=== PATIENT | female | born 1950 | race Caucasian/White ===

== ENCOUNTER 2019-08-22 13:01 | Inpatient (IN) | payer MEDICARE, SELFPAY ==
[2019-08-22] VITALS (8 sets, daily range): BP systolic 142–202; BP diastolic 63–92; PULSE 80–110; RESP 16–24; TEMP 36.8–38.1; O2SAT 90–96; BMI 54.6
--- NOTE | ~2019-08-22 | XR_ITS ---
EXAMINATION: XR foot RT 2V DATE: 08/23/2019 05:48 INDICATION: Right heel ulcer. TECHNIQUE: 2 views of right foot were obtained. COMPARISON: None. FINDINGS: Bone alignment is normal. No fracture. There is diffuse osteopenia. There is mild osteoarth ritis of some the interphalangeal joints and midfoot joints. There are enthesophytes at the posterior and plantar aspects of calcaneal tuberosity. IMPRESSION: 1. No evidence of osteomyelitis. Reviewed, dictated and finalized at location A. UGATOR OPERATOR
--- NOTE | ~2019-08-22 | XR_ITS ---
EXAMINATION: XR chest 2V DATE: 08/22/2019 16:18 INDICATION: Cough, fever, abdominal pain TECHNIQUE: AP and lateral views of the chest are obtained. COMPARISON: 01/22/2019 FINDINGS: There is stable cardiomegaly. A mild interstitial pattern is suggested. There is no pleural effusion or pneumothorax. There is levoscoliosis of the thoracic spine. Calcified atherosclerosis is noted. IMPRESSION: 1. Cardiomegaly with possible mild pulmonary edema. Reviewed, dictated and finalized at location A. ULAR TECH
--- NOTE | ~2019-08-22 | CT_ITS ---
EXAMINATION: CT abdomen pelvis wo con DATE: 08/22/2019 14:47 INDICATION: Abdominal distention and vomiting TECHNIQUE: Computed tomography (CT) of the abdomen and pelvis was performed without intravenous contr ast. The dose-length product (DLP) was 1442.83 mGy-cm. Automated exposure control and iterative recon struction technique were employed. COMPARISON: 10/12/2015 FINDINGS: Minimal dependent atelectasis is present in the lung bases. Cardiomegaly is noted. There is calcification of the mitral annulus. Punctate calcifications in an otherwise normal spleen likely re present healed granulomatous disease. The liver, pancreas, gallbladder, and adrenal glands are normal . The kidneys are unremarkable. There is calcified atherosclerosis of the aorta and many of the other arteries. There is mild retroperitoneal lymphadenopathy. There is no free intraperitoneal gas or ronald dence of bowel obstruction. A moderate volume of colonic stool is present. There is moderate lumbar s pondylosis. There is a large fat-containing umbilical hernia. There is skin thickening and infiltrati on of the fat of the pannus. Calcified uterine fibroids are noted. IMPRESSION: 1. Skin thickening and apparent inflammatory change of the pannus. Clinically correlate for signs of infection. Reviewed, dictated and finalized at location A. Y STITCHER IMPRESSION: 1. Skin thickening and apparent inflammatory change of the pannus. Clinically c orrelate for signs of infection.
--- NOTE | ~2019-08-22 | US_ITS ---
EXAMINATION: US venous doppler [facility] DATE: 08/23/2019 12:07 INDICATION: Bilateral lower limb swelling TECHNIQUE: Anderson scale images without and with compression and Doppler images of the bilateral lower e xtremity veins were obtained. COMPARISON: None. FINDINGS: The examination is limited by edema and the patient's body habitus. The right common femoral vein, profunda femoral vein, femoral vein, popliteal vein, posterior tibial veins, and greater saphenous vein are patent. The right peroneal vein is poorly visualized. Although no definitive thrombus is seen, flow appears somewhat diminished. The left common femoral vein, profunda femoral vein, femoral vein, popliteal vein, peroneal trunk, po sterior tibial veins, and greater saphenous vein are patent. IMPRESSION: 1. Diminished flow in the right peroneal vein without definite thrombus identified, otherwise patent bilateral lower extremity veins. Reviewed, dictated and finalized at location A. RVENTIONAL TECHNOLOGIST IMPRESSION: 1. Diminished flow in the right peroneal vein without definite thrombus identif ied, otherwise patent bilateral lower extremity veins.
[2019-08-22 13:28] LABS: Basophils Absolute Auto 0.1 K/mm3 (0.0-0.1); Basophils Percent Auto 0.4 % (0.2-1.2); Eosinophils Percent Auto 0.2 % (0-4.4); Hematocrit 35.5 % (37.0-47.0); Immature Granulocyte Absolute 0.25 K/mm3 (0.00-0.031); Immature Granulocyte Percent A 1.5 % (0-0.5); Lymphocytes Absolute Auto 0.96 K/mm3 (0.9-3.2); Lymphocytes Percent Auto 5.9 % (18.3-44.2); Mean Corpuscular Hemoglobin 27.8 pg (26-34); Mean Corpuscular Volume 89.6 fl (80-100); Mean Platelet Volume 10.1 fl (7.4-10.4); Monocytes Absolute Auto 0.8 K/mm3 (0.1-0.6); Monocytes Percent Auto 5.1 % (2.6-8.5); Neutrophils Absolute Auto 14.2 K/mm3 (1.3-6.7); Neutrophils Percent Auto 86.9 % (45.5-73.1); Platelet Count Result 249 k/mm3 (150-375); Red Blood Count 3.96 M/mm3 (4.2-5.4); Red Cell Distribution Width 13.5 % (11.5-14.5); White Blood Count 16.3 K/mm3 (4.5-10.0)
[2019-08-22 13:38] LABS: Alanine Aminotransferase 35 U/L (4-35); Albumin Level 3.7 g/dL (3.5-5.1); Alkaline Phosphatase 159 U/L (38-126); Aspartate Amino Transferase 34 U/L (14-36); Bilirubin,Total 0.9 mg/dL (0.2-1.3); Blood Urea Nitrogen 36 mg/dL (7-17); Calcium 8.8 mg/dL (8.4-10.2); Carbon Dioxide 22 mmol/L (22-30); Chloride 99 mmol/L (98-107); Estimated CRCL calculation 22 ml/min; Estimated Glomerular Filt Rate 17; Glucose 182 mg/dL (65-105); Lipase 63 U/L (23-300); Potassium 4.4 mmol/L (3.4-5.0); Sodium 138 mmol/L (137-145)
[2019-08-22 13:39] LABS: Lactic Acid Reflex 1.7 mmol/L (0.7-2.1)
--- NOTE | 2019-08-22 14:00 | ED.NAVMDI ---
HPI - Nausea/Vomiting/Diarrhea General Chief complaint: Nausea/Vomiting/Diarrhea Stated complaint: Nausea/Vomiting Time Seen by Provider: 08/22/19 13:38 Source: patient Mode of arrival: EMS Limitations: no limitations History of Present Illness HPI Narrative: Pt is a 69 y/o female who presents to the ED with c/o intermittent N/V for a week. Pt reports associated constipation and states that her last BM was about 2 weeks ago. She notes that she has been passing gas like normal but does not have the urge to have a BM. Pt took Miralax yesterday with no relief. She notes that she has no appetite but she denies any aggravating or alleviating factors. Pt has not been around anyone sick with the same Sx. Pt reports chills, but denies sweats or myalgia. She has an ulcer on her rt heel that she has had since January 2019 and she has home health care that checks it. Pt states that she thinks she bruised her ulcer because it is black/blue. She also has stasis dermatitis. Pt notes a chronic cough that is productive with phlegm. Her PCP is Dr. Trevino and they do not suspect osteomyelitis. MD elicited complaint: nausea and vomiting Onset (ago): week(s) (1) Pain consistency: intermittent Exacerbating factors: none Relieving factors: none Associated symptoms: fever/chills and other (constipation) Related Data Home Medications Medication Instructions Recorded Confirmed alprazolam 0.5 mg tablet 0.5 mg PO TID 05/09/19 08/22/19 aspirin 81 mg tablet,delayed 81 mg PO DAILY 05/09/19 08/22/19 release bumetanide 1 mg tablet 1 mg PO BID 05/09/19 08/22/19 diltiazem HCl 90 mg tablet 180 mg PO BID 05/09/19 08/22/19 metoprolol tartrate 100 mg tablet 100 mg PO BID 05/09/19 08/22/19 insulin lispro protamin-lispro 80 unit SUBCUT QAM 08/22/19 08/22/19 [Humalog Mix 75-25 KwikPen] insulin lispro protamin-lispro 90 unit SUBCUT QACDINNER 08/22/19 08/22/19 [Humalog Mix 75-25 KwikPen] Allergies Allergy/AdvReac Type Severity Reaction Status Date / Time clindamycin Allergy Unknown Unknown Verified 08/22/19 14:41 Penicillins Allergy Unknown Hives,Skin Verified 08/22/19 14:41 irritation Sulfa (Sulfonamide Allergy Unknown Hives,Skin Verified 08/22/19 14:41 Antibiotics) irritation Review of Systems Review of Systems: All systems reviewed & are unremarkable except as noted in HPI and below Constitutional: Constitutional: Denies body ache(s), Reports chills, Reports fever(s) and Denies other (sweats) Gastrointestinal: Gastrointestinal: Denies tenesmus, Reports constipation, Denies diarrhea, Reports nausea, Reports vomiting and Reports other (normal passing of gas) PMFSH Past Medical History Medical History Anemia Anxiety Arthritis CKD (chronic kidney disease) CVA (cerebral vascular accident) Diabetes mellitus HLD (hyperlipidemia) HTN (hypertension) Peripheral neuropathy Seasonal allergies Seizure Stasis dermatitis TIA (transient ischemic attack) Ulcer of right heel Umbilical hernia UTI (urinary tract infection) Surgical History Surgical History H/O tubal ligation Hx of hernia repair Family History Family History (Updated 08/22/19 @ 19:36 by Tati Soto RN) Father Family history of cardiovascular disease Acute myocardial infarction Mother Family history of Alzheimer's disease Hypertension Sibling Hypertension Sibling Hypertension Social History Social History Smoking status: Never smoker Alcohol intake: never Substance use: never Gender identity (if verbalized by the patient): Female Spiritual care concerns: No Agree to blood products: Yes Exam Narrative: Exam Narrative: GENERAL: Chronically ill-appearing, well-nourished, and in no acute distress. HEAD: Normocephalic, atraumatic. ENT: Mucous membranes moist. CHEST: Clear to auscultation. No respirator
[2019-08-22 15:26] LABS: Add Urine Microscopic? YES; Amorphous Sediment Urine Few; Appearance Urine Clear (Clear); Bacteria Urine Trace /hpf; Bilirubin Urine Negative (Negative); Blood Urine 1+ (Negative); Color Urine Yellow (Yellow); Glucose Urine UA 2+ mg/dL (Negative); Ketones Urine Negative (Negative); Leukocyte Esterase Ur Negative LEU/UL (Negative); Mucus Urine Rare /lpf; Nitrate Urine Negative (Negative); Protein Urine 3+ mg/dL (Negative); Specific Grav Ur 1.015 (1.001-1.035); Squamous Epithelial Cell Urine Occasional /hpf (Few); Urobilinogen Urine Negative mg/dL (<2.0)
[2019-08-22] MEDS: ONDANSETRON INJ 4 MG/2 ML VIAL IV PUSH (15:42)
[2019-08-22] MEDS: SODIUM CHLORIDE 0.9% IV 1,000 ML 999 ML IV CONT (15:43)
--- NOTE | 2019-08-22 18:42 | ADMGEN ---
This patient, Aurelia Alcantara, was admitted to 2 Medical Room 251-01. Patient/family oriented to hospital policies and general routines including ID bracelet, bed and alarms, visiting hours, pain management, procedures, bathroom and other care routines, personal items, smoking policy, room service/diet, and visiting hours. Valuables list has been completed. Information on how to activate the Rapid Response Team has been discussed. Patient/Family are encouraged to report perceived risks to care and to ask questions if they do not understand what they are told or what they should do. Report received from ARI Banuelos.
--- NOTE | 2019-08-22 19:07 | PC.NURSE ---
On 08/22/19, the License pending nurse, Destin Vazquez RN provided care and completed [employer] documentation on this patient. I have reviewed the documentation and agree with the findings.
[2019-08-22] MEDS: SODIUM CHLORIDE 0.9% IV 1,000 ML 125 ML IV CONT (19:13)
[2019-08-22 19:28] LABS: Glucose Point of Care 173 (65-105)
[2019-08-22 21:15] LABS: Glucose Point of Care 201 (65-105)
[2019-08-22] MEDS: IMIPENEM/CILASTATIN SODIUM 200 MG in DEXTROSE 5% 100 ML 300 ML IVPB (23:20)
--- NOTE | 2019-08-23 02:25 | PM.IMHP ---
H&P: HPI History of Present Illness Chief complaint: PANICULITIS Narrative: Aurelia Alcantara is a 69 year old female who came in with complaints of constipation and nausea vomiting without diarrhea. Patient stated it has been about a week since she had a bowel movement. She did take MiraLax yesterday but no relief. Her stomach is not bothering her at this time. She is complaining his lower back pain. Patient had elevated white count of 16.3. The patient has had a chronic right heel ulcer that has been maintained by Dr. Trevino her primary care doctor. She has had this chronic right heel ulcerated area since January of last year. She was getting home health until yesterday it stopped. She has chronic renal failure and anemia. Patient has of right lower pannus erythema and the patient has not tried anything at home for this. Since the patient has elevated white count of 16.3 is felt that the patient had secondary bacterial infection her pannus. Most likely due to yeast infection of the right pannus. The patient is diabetic. Per protocol the patient was started on vancomycin and Rocephin. Pharmacy is to dose vancomycin since she has chronic renal failure stage 4. Date of service is 08/23/2019 Review of Systems Review of Systems: All systems reviewed & are unremarkable except as noted in HPI and below Constitutional: Constitutional: Reports as per HPI and Reports no additional constitutional complaints Eyes: Eyes: Reports as per HPI and Reports no additional eye complaints ENT: Reports system reviewed and no additional complaints, except as documented and Reports Normal hearing present Cardiovascular: Cardiovascular: Reports no additional cardiovascular complaints Respiratory: Respiratory: Reports no additional respiratory complaints and Reports no additional respiratory complaints Gastrointestinal: Gastrointestinal: Reports as per HPI and Reports no additional gastrointestinal complaints Musculoskeletal: Musculoskeletal: Reports no additional musculoskeletal complaints Integumentary/Breasts: Skin/Breast: Reports system reviewed and no additional complaints, except as docu and Reports as per HPI Neurologic: Reports system reviewed and no additional complaints, except as documented, Reports as per HPI and Reports Normal hearing present Psychiatric: Psychiatric: Reports no additional psychiatric complaints and Reports as per HPI Endocrine: Endocrine: Reports no additional endocrine complaints Hematologic/Lymphatic: Hematologic/Lymphatic: Reports no additional hematologic/lymphatic complaints Allergic/Immunologic: Allergic/Immunologic: Reports no additional allergic/immunologic complaints [facility] Past Medical History Medical History (Updated 08/23/19 @ 02:30 by Juana Myers NP) Anemia Anxiety Arthritis CKD (chronic kidney disease) Stage IV CVA (cerebral vascular accident) Diabetes mellitus HLD (hyperlipidemia) HTN (hypertension) Peripheral neuropathy Seasonal allergies Seizure Stasis dermatitis TIA (transient ischemic attack) Ulcer of right heel Umbilical hernia UTI (urinary tract infection) Surgical History Surgical History (Updated 08/23/19 @ 02:30 by Juana Myers NP) H/O arthroscopy of right knee H/O tubal ligation Hx of hernia repair Family History Family History (Updated 08/22/19 @ 19:36 by Tati Soto RN) Father Family history of cardiovascular disease Acute myocardial infarction Mother Family history of Alzheimer's disease Hypertension Sibling Hypertension Sibling Hypertension Daughter Breast cancer Social History Social History Smoking status: Never smoker Alcohol intake: never Substance use: never Gender identity (if verbalized by the patient): Female Spiritual care concerns: No Agree to blood products: Yes Meds Home Medications and Allergies Home Medications Medication Instructions Recorded Co
[2019-08-23 03:14] VITALS: BP 176/76; PULSE 95; RESP 22; TEMP 36.7; O2SAT 98
[2019-08-23] MEDS: ALPRAZOLAM 0.5 MG TABLET PO ×3 (05:04→16:39)
[2019-08-23 05:37] LABS: Basophils Percent Auto 0.3 % (0.2-1.2); Eosinophils Percent Auto 0.3 % (0-4.4); Hematocrit 29.1 % (37.0-47.0); Hemoglobin 9.1 g/dL (12.0-15.0); Immature Granulocyte Absolute 0.29 K/mm3 (0.00-0.031); Immature Granulocyte Percent A 2.1 % (0-0.5); Lymphocytes Percent Auto 10.2 % (18.3-44.2); Mean Corpuscular HGB Conc 31.3 g/dl (32-36); Mean Corpuscular Hemoglobin 28.4 pg (26-34); Mean Corpuscular Volume 90.9 fl (80-100); Mean Platelet Volume 10.1 fl (7.4-10.4); Monocytes Absolute Auto 0.9 K/mm3 (0.1-0.6); Monocytes Percent Auto 6.2 % (2.6-8.5); Neutrophils Absolute Auto 11.2 K/mm3 (1.3-6.7); Neutrophils Percent Auto 80.9 % (45.5-73.1); Platelet Count Result 222 k/mm3 (150-375); Red Cell Distribution Width 13.3 % (11.5-14.5); White Blood Count 13.8 K/mm3 (4.5-10.0)
[2019-08-23 05:47] LABS: Alanine Aminotransferase 31 U/L (4-35); Alkaline Phosphatase 106 U/L (38-126); Aspartate Amino Transferase 28 U/L (14-36); Bilirubin,Total 0.7 mg/dL (0.2-1.3); Blood Urea Nitrogen 33 mg/dL (7-17); Calcium 8.4 mg/dL (8.4-10.2); Carbon Dioxide 25 mmol/L (22-30); Chloride 104 mmol/L (98-107); Estimated CRCL calculation 25 ml/min; Estimated Glomerular Filt Rate 19; Glucose 158 mg/dL (65-105); Magnesium 1.8 mg/dL (1.6-2.3); Potassium 4.2 mmol/L (3.4-5.0); Sodium 138 mmol/L (137-145)
[2019-08-23 06:00] VITALS: BP 168/72; PULSE 84; RESP 22; O2SAT 91
[2019-08-23] MEDS: IMIPENEM/CILASTATIN SODIUM 200 MG in DEXTROSE 5% 100 ML IVPB ×2 (06:10→12:15)
[2019-08-23 07:40] LABS: Glucose Point of Care 139 (65-105)
[2019-08-23 08:00] VITALS: PULSE 84; RESP 22; O2SAT 91
[2019-08-23] MEDS: ASPIRIN 81 MG ENTERIC TABLET PO (08:11)
[2019-08-23] MEDS: METOPROLOL TARTRATE 50 MG TAB 100 MG PO ×2 (08:12→16:39)
[2019-08-23] MEDS: SIMVASTATIN 20 MG TABLET 40 MG PO (08:12)
[2019-08-23] MEDS: BUMETANIDE 1 MG TABLET PO ×2 (08:12→16:39)
[2019-08-23] MEDS: TOLNAFTATE 1% POWDER 45 GM BTL 1 APPLIC TOPICAL ×2 (08:13→21:03)
[2019-08-23] MEDS: SODIUM CHLORIDE 0.9% IV 1,000 ML 125 ML IV CONT (08:16)
--- NOTE | 2019-08-23 09:54 | P.PNIM_ITS ---
Progress Note: A&P Assessment and Plan (1) Abdominal pannus: Code(s): E65 - Localized adiposity Status: Acute Assessment and Plan: Inflammatory changes of pannus on CT. This could very well be fungal. * Anti-fungal powder for now * Wound Care consult; appreciate recommendations * Vanc and imipenem for diabetic wound, as well, which would add coverage if bacterial * Monitor (2) Heel ulcer: Qualifiers: Laterality: right Non-pressure ulcer stage: limited to breakdown of skin Qualified Code(s): L97.411 - Non-pressure chronic ulcer of right heel and midfoot limited to breakdown of skin Code(s): L97.409 - Non-pressure chronic ulcer of unspecified heel and midfoot with unspecified severity Status: Acute Assessment and Plan: Black eschar noted on heel, minimally infected, but in setting of elevated WCC. Vanc and imipenem started from ER. No osteomyelitis on xray * Continue with vanc and imipenem for now * Wound Care has been consulted and appreciate recommendations * Consider Surgery consult pending WC recommendations * Likely Home with HH for wound care on discharge as her last day was yesterday * Monitor/trend WCC * PO antibiotics at discharge * Pain control (3) Anxiety: Code(s): F41.9 - Anxiety disorder, unspecified Status: Chronic Assessment and Plan: No acute issues * Continue with home Xanax (4) Diabetes mellitus: Code(s): E11.9 - Type 2 diabetes mellitus without complications Status: Chronic Assessment and Plan: IDDM. BGL 100s today * Home insulin regimen * Diabetic diet * accucheks ACHS, hypoglycemia protocol, correctional insulin (5) HLD (hyperlipidemia): Code(s): E78.5 - Hyperlipidemia, unspecified Status: Chronic Assessment and Plan: No acute issues * Continue with simvastatin (6) HTN (hypertension): Code(s): I10 - Essential (primary) hypertension Status: Chronic Assessment and Plan: BGL 160s today, but has not had home diltiazem today * Continue with metoprolol and diltiazem. (7) CKD (chronic kidney disease): Code(s): N18.9 - Chronic kidney disease, unspecified Status: Chronic Assessment and Plan: Stage IV. Cr 2.50; At baseline * Continue to monitor (8) Anemia: Code(s): D64.9 - Anemia, unspecified Status: Chronic Assessment and Plan: Hgb 9.1; down from yesterday, but possibly dilutional; no signs of active bleeding at this moment. * Iron panel tomorrow * Trend Hgb * Stool occult if still dropping tomorrow * Transfuse as needed Subjective Date/time seen: 08/23/19 09:54 Interval history: Patient is a 69 yo F with history of DMII, HLD, HTN, stasis dermatitis, chronic diabetic wound of right heel treated by PCP, and CKD among other comorbidities who is here for treatment of suspected fungal infection of pannus, treatment of diabetic foot wound of right heel, and constipation. Patient tells me she feels better today. Her pain in her foot is improved, but still present. She is still constipated, but passing gas. She has no other complaints today. No complaints of abdominal pain/itchiness/irritation/skin changes. Denies f/c/ns, headaches, dizziness, lightheadedness, changes in v/
--- NOTE | 2019-08-23 09:54 | PM.IMPN ---
Progress Note: A&P Assessment and Plan (1) Abdominal pannus: Code(s): E65 - Localized adiposity Status: Acute Assessment and Plan: Inflammatory changes of pannus on CT. This could very well be fungal. Anti-fungal powder for now Wound Care consult; appreciate recommendations Vanc and imipenem for diabetic wound, as well, which would add coverage if bacterial Monitor (2) Heel ulcer: Qualifiers: Laterality: right Non-pressure ulcer stage: limited to breakdown of skin Qualified Code(s): L97.411 - Non-pressure chronic ulcer of right heel and midfoot limited to breakdown of skin Code(s): L97.409 - Non-pressure chronic ulcer of unspecified heel and midfoot with unspecified severity Status: Acute Assessment and Plan: Black eschar noted on heel, minimally infected, but in setting of elevated WCC. Vanc and imipenem started from ER. No osteomyelitis on xray Continue with vanc and imipenem for now Wound Care has been consulted and appreciate recommendations Consider Surgery consult pending WC recommendations Likely Home with HH for wound care on discharge as her last day was yesterday Monitor/trend WCC PO antibiotics at discharge Pain control (3) Anxiety: Code(s): F41.9 - Anxiety disorder, unspecified Status: Chronic Assessment and Plan: No acute issues Continue with home Xanax (4) Diabetes mellitus: Code(s): E11.9 - Type 2 diabetes mellitus without complications Status: Chronic Assessment and Plan: IDDM. BGL 100s today Home insulin regimen Diabetic diet accucheks ACHS, hypoglycemia protocol, correctional insulin (5) HLD (hyperlipidemia): Code(s): E78.5 - Hyperlipidemia, unspecified Status: Chronic Assessment and Plan: No acute issues Continue with simvastatin (6) HTN (hypertension): Code(s): I10 - Essential (primary) hypertension Status: Chronic Assessment and Plan: BGL 160s today, but has not had home diltiazem today Continue with metoprolol and diltiazem. (7) CKD (chronic kidney disease): Code(s): N18.9 - Chronic kidney disease, unspecified Status: Chronic Assessment and Plan: Stage IV. Cr 2.50; At baseline Continue to monitor (8) Anemia: Code(s): D64.9 - Anemia, unspecified Status: Chronic Assessment and Plan: Hgb 9.1; down from yesterday, but possibly dilutional; no signs of active bleeding at this moment. Iron panel tomorrow Trend Hgb Stool occult if still dropping tomorrow Transfuse as needed Subjective Date/time seen: 08/23/19 09:54 Interval history: Patient is a 69 yo F with history of DMII, HLD, HTN, stasis dermatitis, chronic diabetic wound of right heel treated by PCP, and CKD among other comorbidities who is here for treatment of suspected fungal infection of pannus, treatment of diabetic foot wound of right heel, and constipation. Patient tells me she feels better today. Her pain in her foot is improved, but still present. She is still constipated, but passing gas. She has no other complaints today. No complaints of abdominal pain/itchiness/irritation/skin changes. Denies f/c/ns, headaches, dizziness, lightheadedness, changes in v/h, cp/palpitations, sob/cough, n/v, abd pain, dysphagia, melena, brbpr, dysuria, hematuria, cloudy urine, calf pain/swelling, s/sx of stroke Review of Systems Review of Systems: All systems reviewed & are unremarkable except as noted in HPI and below Exam Narrative: Exam Narrative: Patient sitting upright in chair at time of visit. Son is in room visiting Const: General: cooperative, comfortabl
[2019-08-23] MEDS: DILTIAZEM HCL 60 MG TABLET 180 MG PO ×2 (12:14→21:03)
[2019-08-23 12:23] LABS: Glucose Point of Care 65 (65-105)
[2019-08-23 14:00] VITALS: BP 120/56; PULSE 68; RESP 22; TEMP 36.8; O2SAT 97
[2019-08-23 16:43] LABS: Glucose Point of Care 111 (65-105)
[2019-08-23] MEDS: ACETAMINOPHEN 325 MG TABLET 650 MG PO (16:43)
[2019-08-23 16:49] VITALS: PULSE 79; RESP 18; O2SAT 95
[2019-08-23 21:50] VITALS: BP 136/54; PULSE 61; RESP 18; TEMP 36.2; O2SAT 98
[2019-08-24] VITALS (7 sets, daily range): BP systolic 139–158; BP diastolic 47–81; PULSE 63–82; RESP 18–20; TEMP 36.2–36.7; O2SAT 95–98
[2019-08-24 01:46] LABS: Glucose Point of Care 94 (65-105)
[2019-08-24 04:51] LABS: Basophils Absolute Auto 0.1 K/mm3 (0.0-0.1); Basophils Percent Auto 0.4 % (0.2-1.2); Eosinophils Absolute Auto 0.3 K/mm3 (0-0.3); Eosinophils Percent Auto 2.4 % (0-4.4); Hematocrit 27.8 % (37.0-47.0); Hemoglobin 8.4 g/dL (12.0-15.0); Immature Granulocyte Absolute 0.15 K/mm3 (0.00-0.031); Immature Granulocyte Percent A 1.3 % (0-0.5); Lymphocytes Percent Auto 15.2 % (18.3-44.2); Mean Corpuscular HGB Conc 30.2 g/dl (32-36); Mean Corpuscular Hemoglobin 28.2 pg (26-34); Mean Corpuscular Volume 93.3 fl (80-100); Mean Platelet Volume 9.5 fl (7.4-10.4); Monocytes Percent Auto 9.1 % (2.6-8.5); Neutrophils Percent Auto 71.6 % (45.5-73.1); Platelet Count Result 206 k/mm3 (150-375); Red Blood Count 2.98 M/mm3 (4.2-5.4); Red Cell Distribution Width 13.6 % (11.5-14.5); White Blood Count 11.2 K/mm3 (4.5-10.0)
[2019-08-24 05:06] LABS: Blood Urea Nitrogen 38 mg/dL (7-17); Calcium 7.8 mg/dL (8.4-10.2); Carbon Dioxide 25 mmol/L (22-30); Chloride 105 mmol/L (98-107); Estimated CRCL calculation 23 ml/min; Estimated Glomerular Filt Rate 17; Glucose 83 mg/dL (65-105); Magnesium 1.8 mg/dL (1.6-2.3); Potassium 4.7 mmol/L (3.4-5.0); Sodium 140 mmol/L (137-145)
[2019-08-24 05:13] LABS: Transferrin 126 mg/dL (206-381)
[2019-08-24] MEDS: ACETAMINOPHEN 325 MG TABLET 650 MG PO ×2 (05:38→19:52)
[2019-08-24 05:39] LABS: Iron 32 ug/dL (37-170)
[2019-08-24 05:49] LABS: Percent Iron Saturation 16 % (20-50)
[2019-08-24 07:34] LABS: Glucose Point of Care 81 (65-105)
[2019-08-24] MEDS: ASPIRIN 81 MG ENTERIC TABLET PO (08:35)
[2019-08-24] MEDS: COLLAGENASE OINT 30 GM TUBE 1 APPLIC TOPICAL (08:35)
[2019-08-24] MEDS: TOLNAFTATE 1% POWDER 45 GM BTL 1 APPLIC TOPICAL ×2 (08:35→19:52)
[2019-08-24] MEDS: METOPROLOL TARTRATE 50 MG TAB 100 MG PO ×2 (08:35→17:49)
[2019-08-24] MEDS: ALPRAZOLAM 0.5 MG TABLET PO ×3 (08:35→17:49)
[2019-08-24] MEDS: BISACODYL 5 MG TABLET EC PO (08:35)
[2019-08-24] MEDS: BUMETANIDE 1 MG TABLET PO ×2 (08:35→17:49)
[2019-08-24] MEDS: SIMVASTATIN 20 MG TABLET 40 MG PO (08:37)
[2019-08-24] MEDS: DILTIAZEM HCL 60 MG TABLET 180 MG PO ×2 (08:37→19:51)
--- NOTE | 2019-08-24 09:58 | PM.IMPN ---
Progress Note: A&P Assessment and Plan (1) Abdominal pannus: Code(s): E65 - Localized adiposity Status: Acute Assessment and Plan: Inflammatory changes of pannus on CT. This could very well be fungal. WCC has decreased. No evidence of active bacterial infection at this moment on the pannus. Anti-fungal powder; WC instructions Wound Care consulted and appreciate recommendations Vanc and imipenem d/c yesterday due to unlikely active skin infection Monitor (2) Heel ulcer: Qualifiers: Laterality: right Non-pressure ulcer stage: limited to breakdown of skin Qualified Code(s): L97.411 - Non-pressure chronic ulcer of right heel and midfoot limited to breakdown of skin Code(s): L97.409 - Non-pressure chronic ulcer of unspecified heel and midfoot with unspecified severity Status: Acute Assessment and Plan: Black eschar noted on heel yesterday. WC saw patient yesterday and saw no evidence of infection; rec d/c Vanc and imipenem; rec follow up with PCP and possible HH. WCC has decreased today to 11.2. No osteomyelitis on xray. Pain controlled with Tylenol today. Vanc and imipenem d/c yesterday Wound Care consulted and appreciate recommendations Likely Home with HH for wound care on discharge or follow up with PCP for further referral to WC Monitor/trend WCC Pain control (3) Acute respiratory failure with hypoxia: Code(s): J96.01 - Acute respiratory failure with hypoxia Status: Acute Assessment and Plan: Patient slowly being weaned off O2, still requiring 1L O2 NC this morning; slightly increased effort in breathing during my visit, but this may be positional as she was lying more supine then upright. Also, possible small component of pulmonary edema which was noted on CXR earlier in stay. No crackles noted on exam today. Nursing reports patient is satting better while sitting upright and breathing easier after our visit. Patient already on home Bumex; continue. Considering one time dose of Lasix if unable to completely wean off O2 today, although will be cautious in setting of CKD Wean O2 as tolerated Humidify O2 (4) Anxiety: Code(s): F41.9 - Anxiety disorder, unspecified Status: Chronic Assessment and Plan: No acute issues Continue with home Xanax (5) Diabetes mellitus: Code(s): E11.9 - Type 2 diabetes mellitus without complications Status: Chronic Assessment and Plan: IDDM. BGL 80s this morning. Patient tells me she gets hypoglycemic while at home Home insulin regimen has been held since yesterday morning with reasonable control in BGL Diabetic diet accucheks ACHS, hypoglycemia protocol, correctional insulin Will likely recommend halving her home insulin regimen due to lowered BGL during her stay She will need prompt PCP follow up to further discuss her insulin regimen (6) HLD (hyperlipidemia): Code(s): E78.5 - Hyperlipidemia, unspecified Status: Chronic Assessment and Plan: No acute issues Continue with simvastatin (7) HTN (hypertension): Code(s): I10 - Essential (primary) hypertension Status: Chronic Assessment and Plan: BGL 150s today Continue with metoprolol and diltiazem. (8) CKD (chronic kidney disease): Code(s): N18.9 - Chronic kidney disease, unspecified Status: Chronic Assessment and Plan: Stage IV. Cr 2.70; At baseline Continue to monitor Monitor closely if giving additional lasix (9) Anemia: Code(s): D64.9 - Anemia, unspecified Status: Chronic Assessment and Plan: Hgb 8.4; down from yesterday, but possibly dilutional; no s
[2019-08-24 11:33] LABS: Hematocrit 30.5 % (37.0-47.0); Hemoglobin 9.2 g/dL (12.0-15.0)
[2019-08-24] MEDS: FUROSEMIDE INJ 100 MG/10 ML VIAL 60 MG IV PUSH (11:50)
[2019-08-24] MEDS: BISACODYL 10 MG SUPPOSITORY RECTAL (11:50)
[2019-08-24 13:23] LABS: Glucose Point of Care 120 (65-105)
[2019-08-24 13:46] LABS: IFOB Positive Control Positive; Immunochemical Fecal Occult Bl Negative (N)
[2019-08-24 18:06] LABS: Glucose Point of Care 130 (65-105)
[2019-08-24 23:10] LABS: Glucose Point of Care 161 (65-105)
[2019-08-25] VITALS (11 sets, daily range): BP systolic 159–176; BP diastolic 55–63; PULSE 64–93; RESP 18–20; TEMP 36.2–36.9; O2SAT 91–95
[2019-08-25] MEDS: ACETAMINOPHEN 325 MG TABLET 650 MG PO (04:29)
[2019-08-25 06:14] LABS: Basophils Absolute Auto 0.1 K/mm3 (0.0-0.1); Basophils Percent Auto 0.7 % (0.2-1.2); Eosinophils Absolute Auto 0.3 K/mm3 (0-0.3); Eosinophils Percent Auto 2.8 % (0-4.4); Hematocrit 30.4 % (37.0-47.0); Immature Granulocyte Absolute 0.38 K/mm3 (0.00-0.031); Immature Granulocyte Percent A 3.4 % (0-0.5); Lymphocytes Absolute Auto 1.63 K/mm3 (0.9-3.2); Lymphocytes Percent Auto 14.6 % (18.3-44.2); Mean Corpuscular HGB Conc 29.6 g/dl (32-36); Mean Corpuscular Hemoglobin 27.6 pg (26-34); Mean Corpuscular Volume 93.3 fl (80-100); Mean Platelet Volume 10.2 fl (7.4-10.4); Monocytes Absolute Auto 0.9 K/mm3 (0.1-0.6); Monocytes Percent Auto 7.8 % (2.6-8.5); Neutrophils Absolute Auto 7.9 K/mm3 (1.3-6.7); Neutrophils Percent Auto 70.7 % (45.5-73.1); Platelet Count Result 259 k/mm3 (150-375); Red Blood Count 3.26 M/mm3 (4.2-5.4); Red Cell Distribution Width 13.6 % (11.5-14.5); White Blood Count 11.2 K/mm3 (4.5-10.0)
[2019-08-25 06:25] LABS: Blood Urea Nitrogen 40 mg/dL (7-17); Calcium 8.2 mg/dL (8.4-10.2); Carbon Dioxide 26 mmol/L (22-30); Chloride 108 mmol/L (98-107); Estimated CRCL calculation 22 ml/min; Estimated Glomerular Filt Rate 16; Glucose 118 mg/dL (65-105); Sodium 141 mmol/L (137-145)
[2019-08-25 07:29] LABS: Glucose Point of Care 111 (65-105)
[2019-08-25 07:31] LABS: Hypochromasia 1+ (NORMAL); Ovalocytes 1+ (NORMAL); Platelet Estimate Adequate (Adequate)
[2019-08-25] MEDS: ALPRAZOLAM 0.5 MG TABLET PO ×3 (08:11→17:39)
[2019-08-25] MEDS: DILTIAZEM HCL 60 MG TABLET 180 MG PO ×2 (08:11→20:28)
[2019-08-25] MEDS: ASPIRIN 81 MG ENTERIC TABLET PO (08:11)
[2019-08-25] MEDS: SIMVASTATIN 20 MG TABLET 40 MG PO (08:11)
[2019-08-25] MEDS: BUMETANIDE 1 MG TABLET PO ×2 (08:11→17:39)
[2019-08-25] MEDS: METOPROLOL TARTRATE 50 MG TAB 100 MG PO ×2 (08:11→17:39)
[2019-08-25] MEDS: FERROUS SULFATE 324 MG TABLET PO (08:11)
[2019-08-25] MEDS: COLLAGENASE OINT 30 GM TUBE 1 APPLIC TOPICAL (08:12)
[2019-08-25] MEDS: TOLNAFTATE 1% POWDER 45 GM BTL 1 APPLIC TOPICAL ×2 (08:12→20:28)
--- NOTE | 2019-08-25 09:10 | PM.IMPN ---
Progress Note: A&P Assessment and Plan (1) Abdominal pannus: Code(s): E65 - Localized adiposity Status: Acute Assessment and Plan: Inflammatory changes of pannus on CT. This could very well be fungal. WCC has stabilized at 11.2k. No evidence of active bacterial infection at this moment on the pannus. Anti-fungal powder; WC instructions Wound Care consulted and appreciate recommendations No antibiotics as unlikely active bacterial skin infection Monitor (2) Heel ulcer: Qualifiers: Laterality: right Non-pressure ulcer stage: limited to breakdown of skin Qualified Code(s): L97.411 - Non-pressure chronic ulcer of right heel and midfoot limited to breakdown of skin Code(s): L97.409 - Non-pressure chronic ulcer of unspecified heel and midfoot with unspecified severity Status: Acute Assessment and Plan: Black eschar noted on heel earlier in stay. WC saw patient earlier in stay and saw no evidence of infection; rec d/c Vanc and imipenem; rec follow up with PCP and possible HH. WCC has stabilized today at 11.2k. No evidence of osteomyelitis on xray. Pain controlled with Tylenol today. No antibiotics at this moment Wound Care consulted and appreciate recommendations Likely Home with HH for wound care on discharge or follow up with PCP for further referral to WC Monitor/trend [facility] Pain control (3) Acute respiratory failure with hypoxia: Code(s): J96.01 - Acute respiratory failure with hypoxia Status: Acute Assessment and Plan: Patient slowly being weaned off O2, still requiring 1L O2 NC this morning; slightly increased effort in breathing during my visit. Also, possible small component of pulmonary edema which was noted on CXR earlier in stay. Wheezing noted on exam today. Nursing reports patient is satting better while sitting upright and breathing easier after our visit. Patient had one time dose of Lasix on top of Bumex; patient tells me she had increased in urine production Wean O2 as tolerated Schedule nebs for slight wheezing noted on exam. Patient has no chronic underlying lung condition Humidify O2 Likely home tomorrow if weaned off O2 (4) Anxiety: Code(s): F41.9 - Anxiety disorder, unspecified Status: Chronic Assessment and Plan: No acute issues Continue with home Xanax (5) Diabetes mellitus: Code(s): E11.9 - Type 2 diabetes mellitus without complications Status: Chronic Assessment and Plan: IDDM. BGL 100s this morning. Patient tells me she gets hypoglycemic while at home Home insulin regimen has been held for majority of stay with reasonable control in BGL Diabetic diet accucheks ACHS, hypoglycemia protocol, correctional insulin Will likely continue home regimen at discharge with prompt follow up with her PCP. Reluctant to change her insulin regimen at this time as it is unclear how strict she is with her Diabetic Diet while at home and may run the risk of hypoglycemic events at home. She tells me she is comfortable with continuing her current regimen and checking her sugars frequently at home, as she already does this at home. She understands the importance of following up with her PCP for possible adjustments with her insulin regimen. (6) HLD (hyperlipidemia): Code(s): E78.5 - Hyperlipidemia, unspecified Status: Chronic Assessment and Plan: No acute issues Continue with simvastatin (7) HTN (hypertension): Code(s): I10 - Essential (primary) hypertension Status: Chronic Assessment and Plan: BGL 150s today Continue with metoprolol and diltiazem. (8) CKD (chronic kidney disease): Code(s): N18.9 - Chron
[2019-08-25 12:12] LABS: Glucose Point of Care 134 (65-105)
[2019-08-25 13:38] LABS: Blood Urea Nitrogen 41 mg/dL (7-17); Calcium 7.5 mg/dL (8.4-10.2); Carbon Dioxide 25 mmol/L (22-30); Chloride 102 mmol/L (98-107); Estimated CRCL calculation 24 ml/min; Estimated Glomerular Filt Rate 18; Glucose 159 mg/dL (65-105); Potassium 4.1 mmol/L (3.4-5.0); Sodium 140 mmol/L (137-145)
[2019-08-25] MEDS: IPRATROPIUM BR 0.02% INH SOLN 0.5 MG/2.5 ML VIAL INHALATION ×2 (14:10→21:40)
[2019-08-25] MEDS: ALBUTEROL SULFATE NEB 2.5 MG/0.5 ML INH INHALATION ×2 (14:10→21:39)
[2019-08-25 18:15] LABS: Glucose Point of Care 156 (65-105)
[2019-08-25 22:19] LABS: Glucose Point of Care 182 (65-105)
[2019-08-26] VITALS (13 sets, daily range): BP systolic 154–165; BP diastolic 50–61; PULSE 66–80; RESP 16–20; TEMP 36.3–37.1; O2SAT 79–97
[2019-08-26] MEDS: ALBUTEROL SULFATE NEB 2.5 MG/0.5 ML INH INHALATION ×2 (02:54→08:33)
[2019-08-26] MEDS: IPRATROPIUM BR 0.02% INH SOLN 0.5 MG/2.5 ML VIAL INHALATION ×2 (02:54→08:34)
[2019-08-26 05:42] LABS: Hematocrit 29.5 % (37.0-47.0); Mean Corpuscular HGB Conc 30.5 g/dl (32-36); Mean Corpuscular Hemoglobin 28.3 pg (26-34); Mean Corpuscular Volume 92.8 fl (80-100); Mean Platelet Volume 9.4 fl (7.4-10.4); Platelet Count Result 269 k/mm3 (150-375); Red Blood Count 3.18 M/mm3 (4.2-5.4); Red Cell Distribution Width 13.6 % (11.5-14.5); White Blood Count 10.5 K/mm3 (4.5-10.0)
[2019-08-26 05:56] LABS: Blood Urea Nitrogen 41 mg/dL (7-17); Calcium 8.3 mg/dL (8.4-10.2); Carbon Dioxide 28 mmol/L (22-30); Chloride 107 mmol/L (98-107); Estimated CRCL calculation 24 ml/min; Estimated Glomerular Filt Rate 18; Glucose 131 mg/dL (65-105); Hemoglobin A1C 6.1 % (<5.7); Potassium 3.9 mmol/L (3.4-5.0); Sodium 142 mmol/L (137-145)
[2019-08-26 07:48] LABS: Glucose Point of Care 127 (65-105)
[2019-08-26] MEDS: ASPIRIN 81 MG ENTERIC TABLET PO (08:40)
[2019-08-26] MEDS: SIMVASTATIN 20 MG TABLET 40 MG PO (08:40)
[2019-08-26] MEDS: METOPROLOL TARTRATE 50 MG TAB 100 MG PO (08:41)
[2019-08-26] MEDS: BUMETANIDE 1 MG TABLET PO (08:43)
[2019-08-26] MEDS: FERROUS SULFATE 324 MG TABLET PO (08:43)
[2019-08-26] MEDS: DILTIAZEM HCL 60 MG TABLET 180 MG PO (08:43)
[2019-08-26] MEDS: COLLAGENASE OINT 30 GM TUBE 1 APPLIC TOPICAL (08:44)
[2019-08-26] MEDS: TOLNAFTATE 1% POWDER 45 GM BTL 1 APPLIC TOPICAL (08:44)
[2019-08-26] MEDS: ALPRAZOLAM 0.5 MG TABLET PO ×2 (08:48→12:00)
--- NOTE | 2019-08-26 10:48 | PM.DS ---
DS: Diagnosis Admitting Diagnosis Admitting Diagnosis: Right heel ulcer, possible panniculitis, unspecified Discharge Diagnosis (1) Abdominal pannus: Code(s): E65 - Localized adiposity Status: Acute Assessment and Plan: Inflammatory changes of pannus noted on CT. This could very well be fungal. WCC has stabilized at 10.5k today. No evidence of active bacterial infection at this moment on the pannus. Anti-fungal powder; WC instructions Wound Care consulted and appreciate recommendations No antibiotics as unlikely active bacterial skin infection Continue with antifungal under skin folds Follow up with PCP (2) Heel ulcer: Qualifiers: Laterality: right Non-pressure ulcer stage: limited to breakdown of skin Qualified Code(s): L97.411 - Non-pressure chronic ulcer of right heel and midfoot limited to breakdown of skin Code(s): L97.409 - Non-pressure chronic ulcer of unspecified heel and midfoot with unspecified severity Status: Acute Assessment and Plan: Black eschar noted on heel earlier in stay. WC saw patient earlier in stay and saw no evidence of infection; rec d/c Vanc and imipenem; rec follow up with PCP and resume HH. WCC has stabilized today at 10.5k. No evidence of osteomyelitis on xray. Pain controlled with Tylenol No antibiotics at this moment Wound Care consulted and appreciate recommendations Likely Home with HH for wound care on discharge or follow up with PCP for further referral to WC Repeat CBC in 1 week Pain control with Tylenol PCP follow up (3) Acute respiratory failure with hypoxia: Code(s): J96.01 - Acute respiratory failure with hypoxia Status: Acute Assessment and Plan: Patient slowly being weaned off O2 today, although possibly requiring O2 once ambulating. Home O2 eval today to assess; they recommend 2 L O2 at rest and on ambulation. Also, possible small component of pulmonary edema which was noted on CXR earlier in stay. Lung exam benign today. Possibly due to OSH Home O2 recommends 2L O2 at rest and ambulation. Recommended follow up with f/u with PCP for possible PFTs or further work up, possibly OP Echo (4) Anxiety: Code(s): F41.9 - Anxiety disorder, unspecified Status: Chronic Assessment and Plan: No acute issues Continue with home Xanax (5) Diabetes mellitus: Code(s): E11.9 - Type 2 diabetes mellitus without complications Status: Chronic Assessment and Plan: IDDM. BGL 100s this morning. Patient tells me she gets hypoglycemic while at home occasionally Home insulin regimen has been held for majority of stay with reasonable control in BGL Diabetic diet accucheks ACHS, hypoglycemia protocol, correctional insulin during stay Will likely continue home regimen at discharge with prompt follow up with her PCP. I am reluctant to change her insulin regimen at this time as it is unclear how strict she is with her Diabetic Diet while at home and may run the risk of hyperglycemic events at home if insulin is reduced. She tells me she is comfortable with continuing her current regimen and checking her sugars frequently at home, as she already does this at home; she understands when to take her insulin and when to hold it. She understands the importance of following up with her PCP for possible adjustments with her insulin regimen. (6) HLD (hyperlipidemia): Code(s): E78.5 - Hyperlipidemia, unspecified Status: Chronic Assessment and Plan: No acute issues Continue with simvastatin (7) HTN (hypertension): Code(s): I10 - Essential (primary) hypertension Status: Chronic Assessment and Plan: BGL 160s today Continue with metoprolol and dilti
[2019-08-26 12:00] LABS: Glucose Point of Care 162 (65-105)
--- NOTE | 2019-08-26 13:54 | HOMEO2EVAL ---
Home Oxygen Evaluation RC: Home Oxygen (O2) Evaluation Start: 08/26/19 07:14 Freq: ONCE Status: Active Protocol: RPE Activity Type Activity Date Activity User E-Sign Co-Sign Detail Recorded Client Recorded Date Recorded By Document 08/26/19 13:25 [email or web address] [id number] 08/26/19 13:54 KRM Document 08/26/19 13:27 [email or web address] [email or web address] 08/26/19 13:54 KRM Document 08/26/19 13:30 [email or web address] [email or web address] 08/26/19 13:54 KRM Document 08/26/19 13:32 [email or web address] [email or web address] 08/26/19 13:54 KRM Document 08/26/19 13:35 [email or web address] [email or web address] 08/26/19 13:54 KRM 08/26/19 08/26/19 08/26/19 13:25 13:27 13:30 Home O2 Evaluation Test Phase Resting Resting Resting Oxygen Delivery Room Air Nasal Cannula Nasal Cannula Oxygen Flow Rate (L/min) 1 2 Pulse Oximetry (90-100 %) 79 L 87 L 90 Pulse Rate (60-100 beats/min) 67 67 66 Activity Tolerance Ambulation Distance (feet) Home Oxygen Evaluation Comments Treatment Charges O2 Evaluation 08/26/19 08/26/19 13:32 13:35 Home O2 Evaluation Test Phase Exercise Resting Oxygen Delivery Nasal Cannula Nasal Cannula Oxygen Flow Rate (L/min) 2 2 Pulse Oximetry (90-100 %) 89 L 90 Pulse Rate (60-100 beats/min) 76 72 Activity Tolerance Fair Ambulation Distance (feet) 25 Home Oxygen Evaluation Comments TO BATHROOM AND BACK. NEEDS 2LPM AT REST AND WITH ACTIVITY. Treatment Charges
--- NOTE | 2019-08-26 14:36 | PCNSR ---
On 08/26/19, the student, Lima Montoya, provided care and completed [facility] documentation on this patient. I have reviewed the student's documentation and agree with the findings.
--- NOTE | 2019-08-26 14:54 | PCRCNOTE ---
PT. REQUIRES 2LPM HOME O2. DID NOT HAVE QUALIFYING DX. PT. AGREED TO SELF PAY. SET UP WITH [facility]. GAVE E TANK FROM [facility].
== END 2019-08-26 16:27 | disposition home health service (06) | DRG 640 ==
LOC: ANHED 13:53 → ANH2MED 17:59
PROVIDERS: Nurse Practitioner; Physician Assistant; Admitting Provider Family Medicine; Emergency Provider Emergency Medicine; PCP Family Medicine; Visit Provider Hospitalist
DX: E65 Localized adiposity (principal); J96.01 Acute respiratory failure with hypoxia; L97.411 Non-pressure chronic ulcer of right heel and midfoot limited to breakdown of skin; N18.4 Chronic kidney disease, stage 4 (severe); B37.2 Candidiasis of skin and nail; E11.621 Type 2 diabetes mellitus with foot ulcer; I12.9 Hypertensive chronic kidney disease with stage 1 through stage 4 chronic kidney disease, or unspecified chronic kidney disease; E11.22 Type 2 diabetes mellitus with diabetic chronic kidney disease; D63.1 Anemia in chronic kidney disease; E11.42 Type 2 diabetes mellitus with diabetic polyneuropathy; F41.9 Anxiety disorder, unspecified; E78.5 Hyperlipidemia, unspecified; M19.90 Unspecified osteoarthritis, unspecified site; I87.2 Venous insufficiency (chronic) (peripheral); E66.01 Morbid (severe) obesity due to excess calories; Z68.43 Body mass index [BMI] 50.0-59.9, adult; Z86.73 Personal history of transient ischemic attack (TIA), and cerebral infarction without residual deficits
CPT/HCPCS: 36415; 51701; 71046; 73620; 74176; 80048; 80053; 81001; 82274; 82728; 83036; 83540; 83550; 83605; 83690; 83735; 84443; 84466; 85014; 85018; 85025; 85027; 87040; 87086; 87804; 93970; 94618; 94640; 96365; 96366; 96367; 96375; 99285; A9270; G0378; J0131; J0743; J1756; J1815; J1940; J2405; J3370; J7030

== ENCOUNTER 2019-08-31 17:12 | Inpatient (IN) | payer MEDICARE, SELFPAY ==
[2019-08-31] VITALS (7 sets, daily range): BP systolic 166–227; BP diastolic 68–88; PULSE 70–88; RESP 18–24; TEMP 36.1–36.4; O2SAT 97–100; BMI 45.6
--- NOTE | ~2019-08-31 | XR_ITS ---
XR chest 2V 09/02/2019 13:19 Indication: Shortness of breath Procedure: 2 view chest Comparison: Comparison to multiple prior studies sequentially, with oldest reviewed study dated 05/27. Findings: Cardiomegaly with interstitial edema. Small pleural effusions. There is atherosclerosis of the aorta. No acute osseous abnormality. Mild thoracic spondylosis. There is dextroscoliosis of the t horacic spine. Impression: 1: Cardiomegaly with mild interstitial edema. 2: Small pleural effusions. Reviewed, dictated and finalized at location A. Impression: 1: Cardiomegaly with mild interstitial edema. 2: Small pleural effusions.
--- NOTE | ~2019-08-31 | MR_ITS ---
EXAMINATION: MR brain/brain stem wo con DATE: 09/03/2019 12:00 INDICATION: Speech deficit. TECHNIQUE: Magnetic resonance imaging (MRI) of the brain and brainstem was performed without intraven ous contrast. Sequences included sagittal and axial T1-weighted FSE, axial diffusion-weighted FS EPI, axial T2*-weighted GRE, axial T2-weighted FLAIR Propeller, and axial T2-weighted Propeller. Apparent diffusion coefficient (ADC) maps were created. COMPARISON: Brain MRI 11/05/2012, head CT 09/02/2019, 11/04/2012 FINDINGS: There is a small area of chronic encephalomalacia in right frontoparietal region medially. There are scattered areas of nonspecific increased T2-weighted signal intensity in the cerebral white matter. There is no intracranial hemorrhage, acute infarction, or abnormal intracranial mass lesion. The ventricles are normal in size. There is mild mucosal thickening in the paranasal sinuses. There is a small left mastoid effusion. The orbits are normal. IMPRESSION: 1. Small area of chronic encephalomalacia in right frontoparietal region. 2. Mild nonspecific cerebral white matter disease, which likely represents chronic small vessel ische nell disease. Reviewed, dictated and finalized at location A. IMPRESSION: 1. Small area of chronic encephalomalacia in right frontoparietal region. 2. Mild nonspecific cerebral white matter disease, which likely represents chrome polisher bhaskar small vessel ischemic disease.
--- NOTE | ~2019-08-31 | NM_ITS ---
EXAMINATION: NM lung vent and perfusion DATE: 09/03/2019 13:24 INDICATION: Shortness of breath. TECHNIQUE: The patient breathed 18.5 mCi xenon-133 for ventilation images. 5.1 mCi Tc-99m MAA was adm inistered intravenously for perfusion images. Scintigraphic images of the chest were obtained. COMPARISON: Chest 2 views 09/02/2019 FINDINGS: The single breath ventilation image demonstrates decreased cmhqzx-hu-kbzzh ratio. Ventilation washout images show diffuse retention bilaterally. Perfusion images show small defects in the upper lobes a nd lower lobes. There is a moderate-sized defect in anteromedial basal segment left lower lobe. Atten uation from the body burden and arms is noted. ] IMPRESSION: 1. Intermediate probability for pulmonary embolism. Reviewed, dictated and finalized at location A.
--- NOTE | ~2019-08-31 | XR_ITS ---
EXAMINATION: XR abdomen obstructive series DATE: 09/02/2019 13:19 INDICATION: C. Difficile colitis. TECHNIQUE: Upright and supine views of the abdomen on 3 radiographs were obtained. COMPARISON: CT abdomen and pelvis 08/31/2019 FINDINGS: There are no dilated loops of bowel. There is a paucity of stool in the colon. No free intr aperitoneal gas. IMPRESSION: 1. Normal bowel gas pattern. Reviewed, dictated and finalized at location A.
--- NOTE | ~2019-08-31 | XR_ITS ---
XR abdomen/kub 1V 09/17/2019 10:26 Indication: Vomiting. C. Difficile colitis. Procedure: KUB Comparison: 09/02/2019 Findings: There is moderate gas in the colon. No significant small bowel dilation. There are extensiv e vascular calcifications in the left upper abdomen. There are pelvic phleboliths and vascular calcif ications. No acute osseous abnormality. There is lumbar spondylosis with dextrocurvature. Impression: 1: Gas-filled colon without definite obstruction. Reviewed, dictated and finalized at location A. Impression: 1: Gas-filled colon without definite obstruction.
--- NOTE | ~2019-08-31 | XR_ITS ---
EXAMINATION: XR chest port-a-cath/central EXAM DATE: 09/13/2019 11:58 INDICATION: Camilo catheter insertion. TECHNIQUE: Portable AP frontal chest x-ray was obtained. Comparison is made to prior examination from 09/09/2019. FINDINGS: There is a new right-sided IJ venous catheter, mild kinking at the upper most aspect. There is cardiomegaly and pulmonary vascular congestion. Small to moderate pleural effusions, adjacent ate lectasis. Probable pulmonary edema. Pneumonia not excludable. There is no pneumothorax suspected. The re is aortic arterial sclerosis. There is moderate thoracal lumbar scoliosis. IMPRESSION: 1. Mild kinking of catheter at upper most aspect. No postprocedure pneumothorax. 2. Cardiomegaly, congestion, pleural effusions with adjacent atelectasis. Pulmonary edema. Reviewed, dictated and finalized at location A. IMPRESSION: 1. Mild kinking of catheter at upper most aspect. No postprocedure pneumothora x. 2. Cardiomegaly, congestion, pleural effusions with adjacent atelectasis. Pulm onary edema.
--- NOTE | ~2019-08-31 | US_ITS ---
EXAMINATION:US venous doppler LE BI INDICATION:Calf pain TECHNIQUE: Multiple grayscale, color flow and Doppler images of the lower extremity deep venous syste ms were obtained and reviewed. COMPARISON:Ultrasound dated 08/23/2019 FINDINGS: The common femoral, superficial femoral and popliteal veins demonstrate normal respiratory variation, augmentation and compressibility. Color flow is also seen within the posterior tibial, pe roneal, greater saphenous and profunda veins. IMPRESSION: 1: No lower extremity deep venous thrombosis. Reviewed, dictated and finalized at location A.
--- NOTE | ~2019-08-31 | XR_ITS ---
EXAMINATION: XR chest 1V portable DATE: 09/04/2019 09:17 INDICATION: Shortness of breath and cough. TECHNIQUE: A single frontal view of the chest was obtained. COMPARISON: Chest 2 views 09/02/2019, CT abdomen and pelvis 08/31/2019, chest CT 08/03/2014 FINDINGS: Sensitivity is decreased by obesity. There are reticular opacities in right mid and lower l syed zones. There is prominent extrapleural fat on the right. No pleural effusion or pneumothorax. Car diomegaly is noted. There are are prominent paracardial fat pads. IMPRESSION: 1. Reticular opacities in the right mid and lower lung zones, consistent with mild atelectasis versus mild pulmonary edema. 2. Cardiomegaly. Reviewed, dictated and finalized at location A. IMPRESSION: 1. Reticular opacities in the right mid and lower lung zones, consistent with m ild atelectasis versus mild pulmonary edema. 2. Cardiomegaly.
--- NOTE | ~2019-08-31 | XR_ITS ---
EXAMINATION: XR fl guide central line place DATE: 09/13/2019 11:30 INDICATION: Tunneled dialysis catheter insertion. TECHNIQUE: 2 fluoroscopic spot images of the upper right chest were obtained during procedure perform ed by Dr. Sibley. Radiologist was not present for the imaging or procedure. The amount of fluoroscop y time used during this procedure was 0.6 minutes. COMPARISON: 09/09/2019 FINDINGS: Interval placement of a large-bore dual-lumen tunneled right internal jugular central venous catheter with distal tip projecting over the caudal superior vena cava near the superior cavoatrial junction. There appears to be a mild kink with narrowing of the catheter scarring as it passes through the sof t tissues of the base of the right neck at its apex of curvature. No pneumothorax. IMPRESSION: 1. Right internal jugular central venous catheter in expected position. Reviewed, dictated and finalized at location A.
--- NOTE | ~2019-08-31 | CT_ITS ---
EXAMINATION: CT abdomen pelvis wo con EXAM DATE: 08/31/2019 18:29 INDICATION: Abdominal pain. Diarrhea. TECHNIQUE: Spiral CT of the abdomen and pelvis was performed without contrast. Axial, coronal and s agittal images were reviewed. The dose-length product (DLP) for this examination was 1409.23 mGy-cm. The exposure was tailored according to patient size (auto mA exposure control), and iterative recon struction (ASIR) was used as additional dose reduction technique. Comparison is made to prior examina tion from 08/22/2019. FINDINGS: There is moderate-sized infraumbilical fat-containing hernia, small umbilical fat-containin g hernia. There is inflammation along patient's pannus, with subcutaneous fat stranding as previously seen. Mild sigmoid colonic wall edema, possible mild colitis. Nodular liver contour suspicious for cirrhosis. Spleen measures 15 cm in craniocaudal dimension. Gallbladder is unremarkable. No biliary obstruction. There is no nephrolithiasis or hydronephrosis. The uterus is anteverted and morpholo gically normal. The bladder is unremarkable. There is no retroperitoneal or pelvic lymphadenopathy . There is moderate scattered arteriosclerotic disease. The appendix is normal. The stomach and small bowel are unremarkable. There is colonic fluid, corre late for diarrhea. No free intraperitoneal gas. The heart is normal in size. Mitral annular calci fications. There are no pericardial or pleural effusions. The lung bases are unremarkable. There ar e no osteoblastic or osteolytic lesions identified. Mitral annular calcifications. IMPRESSION: 1. Probable mild colitis with colonic fluid, correlate for diarrhea/enteritis. 2. Nodular liver contour suspicious for cirrhosis. 3. Mild splenomegaly. 4. Possible cellulitis of lower pannus. 5. Umbilical, infraumbilical fat-containing hernias. Reviewed, dictated and finalized at location A. 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
--- NOTE | ~2019-08-31 | XR_ITS ---
EXAMINATION: XR chest 1V portable EXAM DATE: 09/09/2019 12:44 INDICATION: Worsening dyspnea. Hypoxia. TECHNIQUE: Portable AP frontal chest x-ray was obtained. Comparison is made to prior examination from 09/07/2019. FINDINGS: The lungs are clear. There are no pleural effusions. The cardiac silhouette is enlarged. There is pulmonary vascular congestion. There are small to moderate possible mild pulmonary edema. Bi lateral pleural effusions. There is no pneumothorax suspected. The bones and soft tissues are unrem arkable. IMPRESSION: 1. Findings consistent with CSF exacerbation, mild interval progression. 2. Small to moderate pleural effusions. Reviewed, dictated and finalized at location A.
--- NOTE | ~2019-08-31 | XR_ITS ---
XR chest 2V DATE: 09/07/2019 15:51 INDICATION: Shortness of breath. Hypoxia. TECHNIQUE: AP and lateral views on 09/07/2019 at 1546 hours COMPARISON: 09/04/2019 portable AP chest FINDINGS: Cardiomegaly. Aortic calcification, ectasia. There is pulmonary vascular congestion. There are small bilateral pleural effusions. There is some prominence of the fissures. There are mild primarily central and greater lower lung zone infiltrates which may be secondary to pu lmonary edema. Pneumonia or aspiration are not excluded. Diffuse osteopenia. There is scoliosis and degenerative spurring of the thoracic spine. IMPRESSION: Congestive heart failure, mildly increased since 09/04/2019 Reviewed, dictated and finalized at location A.
--- NOTE | ~2019-08-31 | CT_ITS ---
EXAMINATION: CT brain wo con EXAM DATE: 09/02/2019 17:42 INDICATION: Slurred speech. TECHNIQUE: Spiral CT of the head was performed without contrast. Axial, coronal and sagittal images were reviewed. The dose-length product (DLP) for this examination was 605.33 mGy-cm. The exposure w as tailored according to patient size, and iterative reconstruction (ASIR) was used as additional dos e reduction technique. Comparison is made to prior examination from 11/04/2012. FINDINGS: Study is limited due to patient motion. There is no acute intraparenchymal hemorrhage. N o evidence of intraparenchymal brain mass lesion. No evidence of acute infarction. Please note that initial head CT has limited sensitivity for small or acute infarctions. There is old small right pa rietal lobe infarction. There is mild to moderate periventricular and subcortical hypodensity, nonsp ecific but probably related to small vessel ischemic disease. There is mild to moderate prominence of the sulci and ventricles related to cerebral atrophy. There is intracranial carotid arterioscler osis. There are no extra-axial collections. There is no mass effect or midline shift. The orbits a re unremarkable. Soft tissue is unremarkable. The visualized sinuses and mastoid air cells are well aerated. IMPRESSION: 1. Limited from motion but No acute intracranial findings. 2. Chronic age related findings. 3. Old small right parietal lobe infarction. Reviewed, dictated and finalized at location A.
--- NOTE | 2019-08-31 17:59 | ED.NAVMDI ---
HPI - Nausea/Vomiting/Diarrhea General Chief complaint: Nausea/Vomiting/Diarrhea Stated complaint: diarrhea Time Seen by Provider: 08/31/19 17:50 Source: patient and family ([id number]) Mode of arrival: ambulatory Limitations: no limitations History of Present Illness HPI Narrative: The pt is a 69 y/o female who presents to the ED c/o diarrhea onset today. Pt's ciohluwv-[id number] states that the pt was at this hospital until 08/26/19 due to Mesenteric panniculitis. She notes that the pt has been on antibiotics as well for her stasis dermatitis. She states that the pt has not been eating much since discharge. Pt has been experiencing diarrhea every 15 to 20 minutes. Her gotzmprg-te-muj states that they contacted the access line, and Dr. Parra stated pt should come to the ED. Pt reports LLQ ABD pain. MD elicited complaint: diarrhea Associated abdominal pain: Yes Location of pain: LLQ Context: recent antibiotic use Associated symptoms: other (Decreased food intake (Onset 5 days ago)) Related Data Home Medications Medication Instructions Recorded Confirmed alprazolam 0.5 mg tablet 0.5 mg PO TID 05/09/19 08/22/19 aspirin 81 mg tablet,delayed 81 mg PO DAILY 05/09/19 08/22/19 release bumetanide 1 mg tablet 1 mg PO BID 05/09/19 08/22/19 diltiazem HCl 90 mg tablet 180 mg PO BID 05/09/19 08/22/19 metoprolol tartrate 100 mg tablet 100 mg PO BID 05/09/19 08/22/19 Humalog Mix 75-25 KwikPen 80 unit SUBCUT QAM 08/22/19 08/22/19 Humalog Mix 75-25 KwikPen 90 unit SUBCUT QACDINNER 08/22/19 08/22/19 diltiazem HCl 180 mg BID 08/23/19 08/23/19 Allergies Allergy/AdvReac Type Severity Reaction Status Date / Time clindamycin Allergy Unknown Unknown Verified 08/31/19 19:34 Penicillins Allergy Unknown Hives,Skin Verified 08/31/19 19:34 irritation Sulfa (Sulfonamide Allergy Unknown Hives,Skin Verified 08/31/19 19:34 Antibiotics) irritation Review of Systems Review of Systems: All systems reviewed & are unremarkable except as noted in HPI and below Constitutional: Constitutional: Reports other (Decreased food intake (Onset 5 days ago)) Gastrointestinal: Gastrointestinal: Reports abdominal pain (LLQ) and Reports diarrhea PMFSH Past Medical History Medical History (Updated 08/31/19 @ 19:50 by Puma Hernandez DO) Anemia Anxiety Arthritis CKD (chronic kidney disease) Stage IV CVA (cerebral vascular accident) Diabetes mellitus HLD (hyperlipidemia) HTN (hypertension) Peripheral neuropathy Seasonal allergies Seizure Stasis dermatitis TIA (transient ischemic attack) Ulcer of right heel Umbilical hernia UTI (urinary tract infection) Surgical History Surgical History (Updated 08/23/19 @ 02:30 by Juana Myers NP) H/O arthroscopy of right knee H/O tubal ligation Hx of hernia repair Family History Family History (Updated 08/23/19 @ 02:31 by Juana Myers NP) Father Family history of cardiovascular disease Acute myocardial infarction Mother Family history of Alzheimer's disease Hypertension Sibling Hypertension Sibling Hypertension Daughter Breast cancer Social History Social History Smoking status: Never smoker Alcohol intake: never Substance use: never Gender identity (if verbalized by the patient): Female Spiritual care concerns: No Agree to blood products: Yes Comments PCP: Dr. Trevino Exam Narrative: Exam Narrative: APPEARANCE: No acute distress, nontoxic, resting in bed HEENT: Normocephalic, atraumatic, OMM RESPIRATORY: No respiratory distress, clear to auscultation bilaterally with no rhonchi wheezing or rales CARDIOVASCULAR: RRR s murmur ABDOMINAL: Obese, soft, nondistended, tender palpation left upper quadrant left lower quadrant, no tenderness right upper quadrant right lower quadrant MUSCULOSKELETAl: Moves all extremities. No clubbing, cyanosis 3+ edema the bilateral lower extremities NEURO: Awake and alert. Following c
[2019-08-31 18:22] LABS: Basophils Absolute Auto 0.1 K/mm3 (0.0-0.1); Basophils Percent Auto 0.4 % (0.2-1.2); Eosinophils Absolute Auto 0.1 K/mm3 (0-0.3); Hemoglobin 10.2 g/dL (12.0-15.0); Immature Granulocyte Absolute 0.09 K/mm3 (0.00-0.031); Immature Granulocyte Percent A 0.8 % (0-0.5); Lymphocytes Absolute Auto 1.42 K/mm3 (0.9-3.2); Lymphocytes Percent Auto 12.1 % (18.3-44.2); Mean Corpuscular HGB Conc 30.9 g/dl (32-36); Mean Corpuscular Hemoglobin 27.9 pg (26-34); Mean Corpuscular Volume 90.2 fl (80-100); Mean Platelet Volume 9.5 fl (7.4-10.4); Monocytes Absolute Auto 0.7 K/mm3 (0.1-0.6); Monocytes Percent Auto 5.7 % (2.6-8.5); Neutrophils Absolute Auto 9.4 K/mm3 (1.3-6.7); Platelet Count Result 240 k/mm3 (150-375); Red Blood Count 3.66 M/mm3 (4.2-5.4); Red Cell Distribution Width 13.3 % (11.5-14.5); White Blood Count 11.7 K/mm3 (4.5-10.0)
[2019-08-31 18:31] LABS: INR 1.1; Prothrombin Time 13.8 Seconds (11.1-14.7)
[2019-08-31 18:32] LABS: Partial Thromboplastin Time 26.9 SECONDS (22.3-36.8)
[2019-08-31 18:33] LABS: Alanine Aminotransferase 20 U/L (4-35); Albumin Level 3.6 g/dL (3.5-5.1); Alkaline Phosphatase 137 U/L (38-126); Aspartate Amino Transferase 21 U/L (14-36); Bilirubin,Total 0.6 mg/dL (0.2-1.3); Blood Urea Nitrogen 28 mg/dL (7-17); Calcium 9.1 mg/dL (8.4-10.2); Carbon Dioxide 29 mmol/L (22-30); Chloride 104 mmol/L (98-107); Estimated Glomerular Filt Rate 25; Glucose 113 mg/dL (65-105); Lipase 51 U/L (23-300); Potassium 4.1 mmol/L (3.4-5.0); Sodium 140 mmol/L (137-145)
[2019-08-31 18:34] LABS: Lactic Acid Reflex 1.1 mmol/L (0.7-2.1)
[2019-08-31] MEDS: METOPROLOL TARTRATE 50 MG TAB 100 MG PO (19:32)
[2019-08-31] MEDS: VANCOMYCIN ORAL 125 MG/2.5 ML SYRUP PO (19:32)
[2019-08-31 21:08] LABS: Add Urine Microscopic? YES; Appearance Urine Clear (Clear); Bacteria Urine Trace /hpf; Bilirubin Urine Negative (Negative); Blood Urine 1+ (Negative); Color Urine Yellow (Yellow); Glucose Urine UA 1+ mg/dL (Negative); Ketones Urine Trace mg/dL (Negative); Leukocyte Esterase Ur Negative LEU/UL (Negative); Mucus Urine Rare /lpf; Nitrate Urine Negative (Negative); Protein Urine 3+ mg/dL (Negative); Specific Grav Ur 1.014 (1.001-1.035); Squamous Epithelial Cell Urine Rare /hpf (Few); Urobilinogen Urine Negative mg/dL (<2.0); WBC Urine 0-3 /hpf
[2019-08-31] MEDS: SODIUM CHLORIDE 0.9% IV 1,000 ML 80 ML IV CONT (21:51)
--- NOTE | 2019-08-31 22:04 | ADMGEN ---
This patient, Aurelia Alcantara, was admitted to 2 Medical Room 242-. Patient/family oriented to hospital policies and general routines including ID bracelet, bed and alarms, visiting hours, pain management, procedures, bathroom and other care routines, personal items, smoking policy, room service/diet, and visiting hours. Valuables list has been completed. Information on how to activate the Rapid Response Team has been discussed. Patient/Family are encouraged to report perceived risks to care and to ask questions if they do not understand what they are told or what they should do.
[2019-08-31] MEDS: hydrALAZINE HCL 20 MG/ML VIAL 5 MG IV PUSH (22:26)
[2019-08-31 23:41] LABS: Glucose Point of Care 118 (65-105)
[2019-09-01] VITALS (7 sets, daily range): BP systolic 140–206; BP diastolic 52–68; PULSE 67–92; RESP 18–22; TEMP 36.2–37; O2SAT 91–98
[2019-09-01] MEDS: VANCOMYCIN ORAL 125 MG/2.5 ML SYRUP PO ×5 (01:37→22:35)
[2019-09-01] MEDS: hydrALAZINE HCL 20 MG/ML VIAL 10 MG IV PUSH (03:43)
[2019-09-01] MEDS: ONDANSETRON INJ 4 MG/2 ML VIAL IV PUSH (03:43)
[2019-09-01] MEDS: ALPRAZOLAM 0.5 MG TABLET PO ×4 (03:56→22:35)
--- NOTE | 2019-09-01 04:45 | PC.NURSE ---
Daylight Savings Time For Daylight Savings Time Ending in the Fall - Clocks are moved back. For Daylight Savings Time Beginning in the Spring - Clocks are moved ahead. For [facility], the time of change occurs at 0200 hrs. Time is taken from the tray server. This entry on the patient's chart recognizes the change in time reflected during documentation. Example: 2 entries for vital signs may be charted for 0200 hrs.
[2019-09-01 05:50] LABS: Basophils Percent Auto 0.3 % (0.2-1.2); Eosinophils Percent Auto 0.2 % (0-4.4); Hematocrit 30.1 % (37.0-47.0); Hemoglobin 9.4 g/dL (12.0-15.0); Immature Granulocyte Absolute 0.07 K/mm3 (0.00-0.031); Immature Granulocyte Percent A 0.6 % (0-0.5); Lymphocytes Absolute Auto 1.13 K/mm3 (0.9-3.2); Lymphocytes Percent Auto 9.7 % (18.3-44.2); Mean Corpuscular HGB Conc 31.2 g/dl (32-36); Mean Corpuscular Hemoglobin 28.3 pg (26-34); Mean Corpuscular Volume 90.7 fl (80-100); Mean Platelet Volume 9.7 fl (7.4-10.4); Monocytes Absolute Auto 0.7 K/mm3 (0.1-0.6); Monocytes Percent Auto 5.9 % (2.6-8.5); Neutrophils Absolute Auto 9.7 K/mm3 (1.3-6.7); Neutrophils Percent Auto 83.3 % (45.5-73.1); Platelet Count Result 207 k/mm3 (150-375); Red Blood Count 3.32 M/mm3 (4.2-5.4); Red Cell Distribution Width 13.4 % (11.5-14.5); White Blood Count 11.6 K/mm3 (4.5-10.0)
[2019-09-01 05:55] LABS: Alanine Aminotransferase 15 U/L (4-35); Albumin Level 2.9 g/dL (3.5-5.1); Alkaline Phosphatase 100 U/L (38-126); Aspartate Amino Transferase 18 U/L (14-36); Bilirubin,Total 0.5 mg/dL (0.2-1.3); Blood Urea Nitrogen 25 mg/dL (7-17); Calcium 8.2 mg/dL (8.4-10.2); Carbon Dioxide 28 mmol/L (22-30); Chloride 105 mmol/L (98-107); Estimated CRCL calculation 35 ml/min; Estimated Glomerular Filt Rate 30; Glucose 130 mg/dL (65-105); Potassium 3.9 mmol/L (3.4-5.0); Sodium 139 mmol/L (137-145)
[2019-09-01 08:26] LABS: Glucose Point of Care 136 (65-105)
[2019-09-01] MEDS: TOLNAFTATE 1% POWDER 45 GM BTL 1 APPLIC TOPICAL ×2 (09:04→22:37)
[2019-09-01] MEDS: COLLAGENASE OINT 30 GM TUBE 1 APPLIC TOPICAL (09:04)
[2019-09-01] MEDS: DILTIAZEM HCL 60 MG TABLET 180 MG BY MOUTH ×2 (09:06→22:35)
[2019-09-01] MEDS: ASPIRIN 81 MG ENTERIC TABLET PO (09:07)
[2019-09-01] MEDS: FERROUS SULFATE 324 MG TABLET PO (09:07)
[2019-09-01] MEDS: SIMVASTATIN 20 MG TABLET 40 MG PO (09:08)
[2019-09-01] MEDS: METOPROLOL TARTRATE 50 MG TAB 100 MG PO ×2 (09:08→22:35)
--- NOTE | 2019-09-01 10:18 | PM.IMHP ---
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 She presented to the emergency department via private vehicle on 08/31/2019 with complaints of diarrhea for 2 days. She reports small volumes of brown-green liquid malodorous stools, approximately ever 5 minutes initially and now about every 30 minutes. Currently has a rectal tube in place. Today she states she is able to distinguish when she is having an episode of diarrhea and believes that her stools are becoming more formed. She denies hematochezia or melena. She reported nausea with 3 episodes of nonbilious, nonbloody, nonfeculent emesis this morning with last episode approximately 5 hours ago. N/V is relieved with Zofran. She tolerated her clear liquid meal this morning without difficulty, although she does report decreased appetite. She denies abdominal pain or cramping. She did report slight discomfort in her left lower quadrant, but believes this has resolved. She denies fevers, chills, weakness, fatigue, dizziness, or lightheadedness. She does report mild headache which she attributes to anxiety. She denies chest pain or shortness of breath. She denies dysuria or hematuria. She reports she has had difficulty sleeping due to repeated episodes of diarrhea. She has a history of anxiety and reports recent illness and not receiviing her home dose of Xanax at her usual time has made her feel more wired , but after taking Xanax she feels her anxiety is well controlled. She reports her heel ulcer is not painful, and she feels it is healing well. She also reports her chronic stasis dermatitis is at baseline and is non painful or bothersome. Review of Systems Review of Systems: Narrative: A 12 point review of systems was reviewed with pertinent positives and negatives as per HPI. 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 Stasis dermatitis TIA (transient ischemic attack) Ulcer of right heel Umbilical hernia UTI (urinary tract infection) Surgical History Surgical History (Updated 09/01/19 @ 10:42 by Richa Oshea PA-C) H/O arthroscopy of right knee H/O tubal ligation Hx of hernia repair Umbilical hernia Family History Family History (Updated 09/01/19 @ 14:35 by Richa Oshea PA-C) Father , 76 Family history of cardiovascular disease Acute myocardial infarction Mother Family history of Alzheimer's disease Hypertension Sibling Hypertension Sibling Hypertension Daughter Breast cancer Social History Social History (Updated 09/01/19 @ 14:37 by Richa Oshea PA-C) Social History: Ms. Alcantara lives at home alone. She has 2 sons and 1 daughter. 1 daughter is unfortunately due to breast cancer. She designates her son Bowen as her surrogate decision maker. She would like to be a full code but plans to discuss this with her family. Smoking status: Never smoker Alcohol intake: never Substance use: never Substance use type: does not use Living arrangements: alone Gender identity (if verbalized by the patient): Female Spiritual care c
[2019-09-01] MEDS: SODIUM CHLORIDE 0.9% IV 1,000 ML 80 ML IV CONT (12:42)
[2019-09-01] MEDS: ACIDOPHILUS/BULGARICUS CHEWABLE TABLET 1 TABLET PO ×3 (12:44→22:36)
[2019-09-01 13:20] LABS: Glucose Point of Care 77 (65-105)
[2019-09-01 17:12] LABS: Glucose Point of Care 65 (65-105)
--- NOTE | 2019-09-01 19:41 | PC.NURSE ---
Nurse spoke with patient, asked patient to have family bring in cardizem bottle from home to clarify for pharmacy. But, family has not brought it in.
[2019-09-01] MEDS: FAMOTIDINE 20 MG/2 ML VIAL IV PUSH (22:36)
[2019-09-01 22:56] LABS: Glucose Point of Care 71 (65-105)
[2019-09-02] VITALS (7 sets, daily range): BP systolic 144–164; BP diastolic 49–71; PULSE 55–90; RESP 16–22; TEMP 36.4–36.9; O2SAT 88–95
[2019-09-02] MEDS: SODIUM CHLORIDE 0.9% IV 1,000 ML 80 ML IV CONT (01:30)
[2019-09-02 06:02] LABS: Hematocrit 30.5 % (37.0-47.0); Mean Corpuscular HGB Conc 29.5 g/dl (32-36); Mean Corpuscular Hemoglobin 27.9 pg (26-34); Mean Corpuscular Volume 94.4 fl (80-100); Platelet Count Result 210 k/mm3 (150-375); Red Blood Count 3.23 M/mm3 (4.2-5.4); Red Cell Distribution Width 13.9 % (11.5-14.5); White Blood Count 14.5 K/mm3 (4.5-10.0)
[2019-09-02 06:15] LABS: Lactic Acid 0.6 mmol/L (0.7-2.1)
[2019-09-02 06:21] LABS: Alanine Aminotransferase 16 U/L (4-35); Albumin Level 2.8 g/dL (3.5-5.1); Alkaline Phosphatase 85 U/L (38-126); Aspartate Amino Transferase 18 U/L (14-36); Bilirubin,Total 0.4 mg/dL (0.2-1.3); Blood Urea Nitrogen 25 mg/dL (7-17); Calcium 8.1 mg/dL (8.4-10.2); Carbon Dioxide 29 mmol/L (22-30); Chloride 108 mmol/L (98-107); Estimated CRCL calculation 30 ml/min; Estimated Glomerular Filt Rate 25; Glucose 91 mg/dL (65-105); Magnesium 1.7 mg/dL (1.6-2.3); Phosphorus 4.7 mg/dL (2.5-4.5); Sodium 140 mmol/L (137-145)
[2019-09-02 06:32] LABS: Basophils Absolute Manual 0.58 K/mm3 (0.0-0.1); Basophils Percent Manual 4 % (0-1); Lymphocytes Absolute Manual 0.72 K/mm3 (1.1-4.5); Metamyelocytes Percent 1 %; Monocytes Absolute Manual 0.87 K/mm3 (0.1-0.90); Monocytes Percent Manual 6 % (3-9); Neutrophils Percent Manual 84 % (46-73); Total Cells Counted 100
[2019-09-02 06:33] LABS: Platelet Estimate Adequate (Adequate)
[2019-09-02 06:37] LABS: Hypochromasia 2+ (NORMAL)
[2019-09-02] MEDS: VANCOMYCIN ORAL 125 MG/2.5 ML SYRUP PO ×4 (06:54→23:37)
[2019-09-02] MEDS: ALPRAZOLAM 0.5 MG TABLET PO ×2 (06:54→13:42)
[2019-09-02] MEDS: DILTIAZEM HCL 60 MG TABLET 180 MG BY MOUTH ×2 (09:03→22:48)
[2019-09-02] MEDS: FERROUS SULFATE 324 MG TABLET PO (09:03)
[2019-09-02] MEDS: METOPROLOL TARTRATE 50 MG TAB 100 MG PO ×2 (09:03→22:48)
[2019-09-02] MEDS: ASPIRIN 81 MG ENTERIC TABLET PO (09:03)
[2019-09-02] MEDS: FAMOTIDINE 20 MG/2 ML VIAL IV PUSH ×2 (09:04→22:49)
[2019-09-02] MEDS: ACIDOPHILUS/BULGARICUS CHEWABLE TABLET 1 TABLET PO ×4 (09:04→22:49)
[2019-09-02] MEDS: SIMVASTATIN 20 MG TABLET 40 MG PO (09:04)
[2019-09-02] MEDS: COLLAGENASE OINT 30 GM TUBE 1 APPLIC TOPICAL (09:08)
[2019-09-02] MEDS: TOLNAFTATE 1% POWDER 45 GM BTL 1 APPLIC TOPICAL ×2 (09:11→22:50)
[2019-09-02 10:13] LABS: Glucose Point of Care 87 (65-105)
--- NOTE | 2019-09-02 12:35 | PM.IMPN ---
Progress Note: A&P Assessment and Plan (1) Colitis: Code(s): K52.9 - Noninfective gastroenteritis and colitis, unspecified Status: Acute Assessment and Plan: CT abdomen reveals probable mild colitis with colonic fluid. Stool culture collected on 08/31/19 is positive for C. diff toxin A and B. Recent history of antibiotic use with imipenem and IV vancomycin at prior hospitalization on 08/23-08/26/19. Patient had a rectal tube inserted on 08/31 but was discontinued due to discomfort. Still experiencing liquid brown stools. White count elevated at 14.5. Lactic acid is within normal limits at 0.6. Patient is afebrile. - Continue Oral Vancomycin 125 Q6H started on 09/01/19. Stop date 09/11/19 after 40 doses. - Continue probiotic - Order banatrol for diarrhea - Advance to full liquids. Continue to advance diet as tolerated as patient is not experiencing N/V. - Order x-ray abdomen to evaluate colitis and abdominal cramping and distension (2) Respiratory failure: Qualifiers: Chronicity: unspecified Respiratory failure complication: unspecified whether with hypoxia or hypercapnia Qualified Code(s): J96.90 - Respiratory failure, unspecified, unspecified whether with hypoxia or hypercapnia Code(s): J96.90 - Respiratory failure, unspecified, unspecified whether with hypoxia or hypercapnia Status: Acute Assessment and Plan: At prior hospitalization from 08/23-08/25, patient developed hypoxia and respiratory failure. A home O2 trial confirmed she would require 2 L of oxygen with rest and ambulation. This was thought to be due to potential pulmonary edema or possible DARREN. Patient has been unable to follow up with her PCP regarding this issue. Today, she is SOB with increased work of breathing and diminished breath sounds. She is also very edematous, likely due to IV fluid replacement. She had previously been tachypneic, but respiratory rate stable today at 16. O2 sat 92% on 2L. - Order CXR to evaluate SOB. - Discontinue IV normal saline. Patient is tolerating oral intake and appears fluid overloaded. - Order IV bumex 1 mg x1 dose and evaluate. Home dose PO Bumex had been held with fluid replacement, but will plan to resume PO bumex tomorrow, or may continue IV bumex depending on fluid status. - Continue with 2L of O2. - Continue to monitor respiratory status as well as fluid status. (3) Heel ulcer: Qualifiers: Laterality: right Non-pressure ulcer stage: limited to breakdown of skin Qualified Code(s): L97.411 - Non-pressure chronic ulcer of right heel and midfoot limited to breakdown of skin Code(s): L97.409 - Non-pressure chronic ulcer of unspecified heel and midfoot with unspecified severity Status: Acute Assessment and Plan: Patient has chronic right heel ulcer which she reports is improving. Prior hospitalization she received Imipenem and Vancomycin for the wound which was stopped at the recommendation of wound care as it did not appear infected. No erythema, no pus or discharge, no odor. Patient does have elevated white count, however is likely better explained by infectious colitis. - Wound care consulted and is following patient. Recommendations greatly appreciated. - Continue to monitor WBC and vitals (4) HTN (hypertension): Qualifiers: Hypertension type: essential hypertension Qualified Code(s): I10 - Essential (primary) hypertension Code(s): I10 - Essential (primary) hypertension Status: Chronic Assessment and Plan: Blood pressure evaluated today and elevated but stable at 144/71. On 08/30, patient had blood pressures in the 200s systolic and reports she had not received home antihypertensives yet at that time. She received IV hydralazine on the evening of 08/30 and on the morning of 08/31. Today, blood pressures are better controlled. - Continue to monitor blood pressures Q4H - Continue home dose of metoprolol and diltiazem (5) Diab
[2019-09-02 12:52] LABS: Glucose Point of Care 143 (65-105)
[2019-09-02] MEDS: BUMETANIDE INJ 1 MG/4 ML VIAL IV PUSH (13:42)
--- NOTE | 2019-09-02 16:58 | ECG_ITS ---
Measurements Intervals [place] Rate: 60 P: 40 MT: 194 QRS: -6 QRSD: 98 T: 90 QT: 452 QTc: 455 Interpretive Statements SINUS RHYTHM LOW QRS VOLTAGE IN PRECORDIAL LEADS ANTEROSEPTAL INFARCT, AGE INDETERMINATE BASELINE WANDER- I, II, AVR, AVL, AVF, V1-V6 ABNORMAL ECG Electronically Signed On 09-02-2019 19:43:25 CDT by Jered Vee D.O.
--- NOTE | 2019-09-02 17:25 | PC.NURSE ---
Pt left floor for STAT CT.
[2019-09-02] MEDS: INSULIN ASPART (*BKC) 100 UNITS/ML SUB-Q (18:15)
--- NOTE | 2019-09-02 18:20 | PC.NURSE ---
On 09/02/19, the keo, [ARI Pugh], provided care and [facility]. I have reviewed her documentation and agree with the findings.
[2019-09-02] MEDS: CLOPIDOGREL BISULFATE 75 MG TABLET PO (18:47)
[2019-09-02 19:06] LABS: Glucose Point of Care 217 (65-105)
[2019-09-02 23:00] LABS: Glucose Point of Care 142 (65-105)
[2019-09-03] VITALS (21 sets, daily range): BP systolic 125–184; BP diastolic 48–77; PULSE 54–86; RESP 19–30; TEMP 35.8–36.4; O2SAT 90–100
--- NOTE | 2019-09-03 | ECHO_ITS ---
Patient Info Name: Aurelia Alcantara Age: 69 years : 1950 Gender: Female Ht: 64 in Wt: 286 lbs BSA: 2.50 m2 HR: 62 bpm BP: 167 / 55 mmHg Technical Quality: Poor Exam Date: 09/03/2019 1:20 PM Exam Location: [facility] Pulmonary Patient Status: Inpatient Admit Date: 09/02/2019 Staff Ordering Physician: Shelbie Rao PA-C Supervisor Byproducts: Debra Rueda RDCS Attending Provider: Shelbie Rao PA-C Referring Physician: Evangelist Parra MD; Exam Type: CA echo dop color flow w con Study Info Indications R06.09 - Other forms of dyspnea Complete two-dimensional, color flow and Doppler transthoracic echocardiogram is performed with contrast to opacify the left ventrical and to improve the deliniation of the left ventrical endocarial boarders. Contrast/Agitated Saline Contrast/Ag. Saline: Definity Amount: 3.00 ml Administered By: Ayse Oglesby RN IV Access Condition: patent with no signs of infiltration Reason for Poor Study: patient body habitus Summary 1. Left ventricular chamber dimension is normal. 2. Definity contrast administered improved wall motion interpretation. 3. Left ventricular systolic function is normal, estimated at 65-70%. 4. There is moderately increased left ventricular wall thickness. 5. The left ventricular diastolic function is abnormal. 6. E/e' 22 is significantly elevated. 7. Left atrial chamber dimension is moderately enlarged. 8. The mitral valve has moderately calcified annulus. 9. There is mild tricuspid valve regurgitation. 10. Severe pulmonary hypertension, estimated pulmonary arterial systolic pressure is 60 mmHg. 11. There is trace pulmonic regurgitation. 12. The prox ascending aorta size is borderline dilated at 4.1 cm.. 13. Dilated inferior vena cava with >50% collapse upon inspiration consistent with elevated right atrial pressure, 10 mmHg. Left Ventricle Definity contrast administered improved wall motion interpretation. E/e' 22 is significantly elevated. Left ventricular chamber dimension is normal. Left ventricular systolic function is normal, estimated at 65-70%. There is moderately increased left ventricular wall thickness. The left ventricular diastolic function is abnormal. Right Ventricle Right ventricular chamber dimension is normal. Right ventricular systolic function is normal. Left Atria Left atrial chamber dimension is moderately enlarged. Right Atria Right atrial chamber dimension is normal. Aortic Valve The aortic valve is trileaflet. There is no aortic valve stenosis. There is no aortic valve regurgitation. Pulmonic Valve There is trace pulmonic regurgitation. Mitral Valve The mitral valve has moderately calcified annulus. There is no mitral valve stenosis. There is no mitral valve regurgitation. Tricuspid Valve There is mild tricuspid valve regurgitation. Severe pulmonary hypertension, estimated pulmonary arterial systolic pressure is 60 mmHg. Pericardium/Pleural There is no pericardial effusion. Inferior Vena Cava Dilated inferior vena cava with >50% collapse upon inspiration consistent with elevated right atrial pressure, 10 mmHg. Aorta The prox ascending aorta size is borderline dilated at 4.1 cm.. The aortic root size at the sinus of Valsalva is normal. Left Ventricular Outflow Tract Name Value N
[2019-09-03] MEDS: ALBUTEROL SULFATE NEB 2.5 MG/0.5 ML INH 5 MG INHALATION (01:45)
[2019-09-03] MEDS: IPRATROPIUM BR 0.02% INH SOLN 0.5 MG/2.5 ML VIAL INHALATION (01:45)
[2019-09-03 05:07] LABS: Basophils Percent Auto 0.2 % (0.2-1.2); Eosinophils Percent Auto 0.3 % (0-4.4); Hemoglobin 8.8 g/dL (12.0-15.0); Immature Granulocyte Absolute 0.15 K/mm3 (0.00-0.031); Immature Granulocyte Percent A 0.9 % (0-0.5); Lymphocytes Absolute Auto 1.05 K/mm3 (0.9-3.2); Lymphocytes Percent Auto 6.6 % (18.3-44.2); Mean Corpuscular HGB Conc 29.3 g/dl (32-36); Mean Corpuscular Hemoglobin 27.9 pg (26-34); Mean Corpuscular Volume 95.2 fl (80-100); Mean Platelet Volume 9.9 fl (7.4-10.4); Monocytes Absolute Auto 1.1 K/mm3 (0.1-0.6); Monocytes Percent Auto 6.7 % (2.6-8.5); Neutrophils Absolute Auto 13.5 K/mm3 (1.3-6.7); Neutrophils Percent Auto 85.3 % (45.5-73.1); Platelet Count Result 227 k/mm3 (150-375); Red Blood Count 3.15 M/mm3 (4.2-5.4); White Blood Count 15.8 K/mm3 (4.5-10.0)
[2019-09-03 05:24] LABS: Alanine Aminotransferase 15 U/L (4-35); Albumin Level 2.8 g/dL (3.5-5.1); Alkaline Phosphatase 84 U/L (38-126); Aspartate Amino Transferase 13 U/L (14-36); Bilirubin,Total 0.3 mg/dL (0.2-1.3); Blood Urea Nitrogen 30 mg/dL (7-17); Calcium 7.9 mg/dL (8.4-10.2); Carbon Dioxide 27 mmol/L (22-30); Chloride 108 mmol/L (98-107); Estimated CRCL calculation 23 ml/min; Estimated Glomerular Filt Rate 18; Glucose 137 mg/dL (65-105); Potassium 4.3 mmol/L (3.4-5.0); Sodium 138 mmol/L (137-145)
[2019-09-03 05:30] LABS: Platelet Estimate Adequate (Adequate)
[2019-09-03 05:31] LABS: Ovalocytes 1+ (NORMAL)
[2019-09-03 05:33] LABS: Hypochromasia 1+ (NORMAL)
[2019-09-03] MEDS: VANCOMYCIN ORAL 125 MG/2.5 ML SYRUP PO ×4 (05:48→23:42)
[2019-09-03] MEDS: ASPIRIN 81 MG ENTERIC TABLET PO (07:37)
[2019-09-03] MEDS: FERROUS SULFATE 324 MG TABLET PO (07:37)
[2019-09-03] MEDS: SIMVASTATIN 20 MG TABLET 40 MG PO (07:37)
[2019-09-03] MEDS: METOPROLOL TARTRATE 50 MG TAB 100 MG PO ×2 (07:37→16:32)
[2019-09-03] MEDS: ACIDOPHILUS/BULGARICUS CHEWABLE TABLET 1 TABLET PO ×4 (07:38→21:32)
[2019-09-03] MEDS: TOLNAFTATE 1% POWDER 45 GM BTL 1 APPLIC TOPICAL ×2 (07:38→21:32)
[2019-09-03] MEDS: COLLAGENASE OINT 30 GM TUBE 1 APPLIC TOPICAL (07:38)
[2019-09-03] MEDS: FAMOTIDINE 20 MG/2 ML VIAL IV PUSH ×2 (07:39→21:32)
[2019-09-03] MEDS: ENOXAPARIN 40 MG/0.4 ML SYRINGE SUB-Q (07:39)
[2019-09-03 09:11] LABS: Glucose Point of Care 126 (65-105)
--- NOTE | 2019-09-03 09:41 | P.CDI_ITS ---
CDI Query Clarification Request -Respiratory failure has been documented -Pt on home O2 at 2L -Pt on O2 at 2-3L here Please further clarify acuity of respiratory failure is: * Acute * Chronic * Acute on Chronic * Unable to determine
--- NOTE | 2019-09-03 09:44 | PM.IMPN ---
Progress Note: A&P Assessment and Plan (1) Colitis: Code(s): K52.9 - Noninfective gastroenteritis and colitis, unspecified Status: Acute Assessment and Plan: CT abdomen revealed probable mild colitis with colonic fluid. Stool culture collected on 08/31/19 is positive for C. diff toxin A and B. Pt has recent history of antibiotic use with imipenem and IV vancomycin at prior hospitalization on 08/23-08/26/19. Patient had a rectal tube inserted on 08/31 which was discontinued due to discomfort. She complains of persistent brown, watery diarrhea with decreased frequency today. She denies nausea and vomiting. She is tolerating full liquid diet but reports minimal appetite today. X-ray abdomen completed 09/02/19 with no dilated bowel loops or free gas. Bowel sounds are present. Continue PO Vancomycin 125 Q6H started on 09/01/19. Stop date 09/11/19 after 40 doses. Continue probiotic Continue banatrol for diarrhea Continue full liquids (2) Respiratory failure: Qualifiers: Chronicity: unspecified Respiratory failure complication: unspecified whether with hypoxia or hypercapnia Qualified Code(s): J96.90 - Respiratory failure, unspecified, unspecified whether with hypoxia or hypercapnia Code(s): J96.90 - Respiratory failure, unspecified, unspecified whether with hypoxia or hypercapnia Status: Acute Assessment and Plan: At prior hospitalization from 08/23-08/25, patient developed hypoxia and respiratory failure. A home O2 trial confirmed she would require 2 L of oxygen with rest and ambulation. This was thought to be due to potential pulmonary edema or possible DARREN and outpatient follow-up was recommended. On 09/01, the pt developed increased work of breathing and diminished breath sounds. She was noted to be edematous. CXR was ordered and revealed interstitial edema and small pleural effusions. The pt is on bumex 1mg PO [employer]GER which was held initially due to dehydration and need for fluid resuscitation. The pt was given 1mg IV bumex yesterday. She developed tachypnea and oxygen requirements increased overnight. I suspect that pulmonary edema is the etiology for her acute on chronic respiratory failure but she does have left calf tenderness, prolonged immobility, severe stasis dermatitis, and increasing oxygen requirement despite diuresis. Will obtain ABG, echo, venous doppler, and VQ scan Will obtain apnea link Will continue IV bumex today and may consider increasing the dose if pt does not improve. (3) Heel ulcer: Qualifiers: Laterality: right Non-pressure ulcer stage: limited to breakdown of skin Qualified Code(s): L97.411 - Non-pressure chronic ulcer of right heel and midfoot limited to breakdown of skin Code(s): L97.409 - Non-pressure chronic ulcer of unspecified heel and midfoot with unspecified severity Status: Acute Assessment and Plan: Patient has chronic right heel ulcer. During her prior hospitalization, she received Imipenem and Vancomycin for the wound which was discontinued per wound care recommendations as it did not appear infected. I removed the dressing today and the wound bed has adherent slough without evidence of acute bacterial infection. It appears to be healing appropriately with her current regimen. Wound care consulted and is following patient. Recommendations greatly appreciated. Continue to monitor WBC and vitals (4) HTN (hypertension): Qualifiers: Hypertension type: essential hypertension Qualified Code(s): I10 - Essential (primary) hypertension Code(s): I10 - Essential (primary) hypertension Status: Chronic Assessment and Plan: Blood pressure evaluated today and elevated. She did require IV hydralazine 3 and 08/31. 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
--- NOTE | 2019-09-03 10:55 | PC.NURSE ---
1055- patient transported for multiple studies via stretcher
[2019-09-03] MEDS: BUMETANIDE INJ 1 MG/4 ML VIAL IV PUSH ×2 (13:14→16:33)
[2019-09-03 13:24] LABS: Glucose Point of Care 157 (65-105)
--- NOTE | 2019-09-03 13:55 | PCOTNOTE ---
Attempted OT treatment, patient in procedure, hold per nursing. Will continue to attempt.
[2019-09-03] MEDS: PERFLUTREN LIPID MICROSPHERES 1.5 ML VIAL DILUTED TO 10 ML TOTAL VOLUME IV PUSH (14:04)
--- NOTE | 2019-09-03 14:18 | PCPTNOTE ---
Per OT patient on hold this afternoon per RN secondary to probable PE, will attempt again after testing at a late time.
[2019-09-03 15:39] LABS: Alveolar/Arterial O2 Gradient 86.1 mmHg; Base Excess ABG -2.4 mEq/l (+/-2.0); Carboxyhemoglobin 0.3 % THb (0-2.0); Fractional Inspired Oxygen 32 %; HCO3 ABG 26.1 mEq/l (22.0-26.0); Methemoglobin ABG 0.5 %THb (0-1.5); Oxygen Content ABG 13.5 %vol (16.0-22.0); Oxygen Saturation ABG 88.1 % (95.0-100.0); Oxyhemoglobin 90.4 % THb (90.0-100.0); PO2 ABG 65.4 mmHg (80.0-100.0); PO2 FiO2 Ratio Arterial Blood 2.04 %; Reduced Hemoglobin 8.8 %THb (0-5.0); Total Hemoglobin 10.6 g/dL (12.0-18.0)
[2019-09-03 15:40] LABS: PCO2 ABG 65.5 mmHg (35.0-45.0); pH ABG 7.219 (7.350-7.450)
[2019-09-03 15:41] LABS: Device NASAL CANNULA; Modified Allen's Test Pass; Site Drawn RIGHT RADIAL
--- NOTE | 2019-09-03 15:56 | PC.NURSE ---
Sepsis alert appeared. Dr. Koenig notified in person.
[2019-09-03 18:34] LABS: Alveolar/Arterial O2 Gradient 189.7 mmHg; Base Excess ABG -1.3 mEq/l (+/-2.0); Carboxyhemoglobin 0.3 % THb (0-2.0); Fractional Inspired Oxygen 50 %; HCO3 ABG 26.8 mEq/l (22.0-26.0); Methemoglobin ABG 0.5 %THb (0-1.5); Oxygen Content ABG 13.9 %vol (16.0-22.0); Oxygen Saturation ABG 95.9 % (95.0-100.0); Oxyhemoglobin 95.2 % THb (90.0-100.0); PO2 ABG 95.3 mmHg (80.0-100.0); PO2 FiO2 Ratio Arterial Blood 1.91 %; Total Hemoglobin 10.3 g/dL (12.0-18.0)
[2019-09-03 18:35] LABS: Device NON-INVASIVE VENT; Modified Allen's Test Pass; PCO2 ABG 63.6 mmHg (35.0-45.0); Site Drawn RIGHT RADIAL; pH ABG 7.243 (7.350-7.450)
[2019-09-03 18:36] LABS: Non-Invasive Expiratory Pressure 5 CMH2O; Non-Invasive Inspiratory Pressure 10 CMH2O; Non-Invasive Vent Rate 4 /MIN
--- NOTE | 2019-09-03 18:42 | PC.NURSE ---
1837-SARAH Emanuel notified that respiratory says that apnea links can not be preformed on [facility].
--- NOTE | 2019-09-03 18:59 | PC.NURSE ---
On 09/03/19, the Lexy crowley RN, provided care and [id number] I have reviewed her documentation and agree with the findings.
[2019-09-03 19:31] LABS: Glucose Point of Care 189 (65-105)
--- NOTE | 2019-09-03 21:00 | PC.NURSE ---
pt. transfered to room 200, report was given to Anamaria Ha RN. Belongings sent down with pt. Family aware of transfer
[2019-09-03 21:36] LABS: Alveolar/Arterial O2 Gradient 192.4 mmHg; Base Excess ABG 0.4 mEq/l (+/-2.0); Carboxyhemoglobin 0.3 % THb (0-2.0); Fractional Inspired Oxygen 50 %; Methemoglobin ABG 0.6 %THb (0-1.5); Oxygen Content ABG 13.5 %vol (16.0-22.0); Oxygen Saturation ABG 96.3 % (95.0-100.0); Oxyhemoglobin 95.6 % THb (90.0-100.0); PO2 ABG 95.5 mmHg (80.0-100.0); PO2 FiO2 Ratio Arterial Blood 1.91 %; Reduced Hemoglobin 3.5 %THb (0-5.0); Total Hemoglobin 9.9 g/dL (12.0-18.0)
[2019-09-03 21:39] LABS: Modified Allen's Test Pass; Site Drawn RIGHT RADIAL; pH ABG 7.279 (7.350-7.450)
[2019-09-03 21:40] LABS: Device BIPAP; Expiratory Pressure 5 cmH2O; Inspiratory Pressure 14 cmH2O
[2019-09-03 21:41] LABS: Glucose Point of Care 149 (65-105)
[2019-09-03 22:00] LABS: Add Urine Microscopic? YES; Appearance Urine Turbid (Clear); Bacteria Urine 1+ /hpf; Bilirubin Urine Negative (Negative); Blood Urine 3+ (Negative); Color Urine Yellow (Yellow); Glucose Urine UA 1+ mg/dL (Negative); Ketones Urine Negative (Negative); Leukocyte Esterase Ur 3+ LEU/UL (Negative); Mucus Urine Rare /lpf; Nitrate Urine Negative (Negative); Protein Urine 3+ mg/dL (Negative); RBC Urine 21-50 /hpf (0-2); Specific Grav Ur 1.012 (1.001-1.035); Squamous Epithelial Cell Urine Few /hpf (Few); Urobilinogen Urine Negative mg/dL (<2.0); WBC Clumps Urine Present /HPF; WBC Urine >75 /hpf
[2019-09-04] VITALS (25 sets, daily range): BP systolic 167–189; BP diastolic 62–80; PULSE 54–95; RESP 19–33; TEMP 36.6–36.9; O2SAT 92–100
[2019-09-04 04:47] LABS: Basophils Percent Auto 0.3 % (0.2-1.2); Eosinophils Absolute Auto 0.1 K/mm3 (0-0.3); Hematocrit 28.1 % (37.0-47.0); Hemoglobin 8.4 g/dL (12.0-15.0); Immature Granulocyte Absolute 0.06 K/mm3 (0.00-0.031); Immature Granulocyte Percent A 0.6 % (0-0.5); Lymphocytes Absolute Auto 1.33 K/mm3 (0.9-3.2); Lymphocytes Percent Auto 13.8 % (18.3-44.2); Mean Corpuscular HGB Conc 29.9 g/dl (32-36); Mean Corpuscular Hemoglobin 28.1 pg (26-34); Mean Platelet Volume 9.8 fl (7.4-10.4); Monocytes Absolute Auto 0.8 K/mm3 (0.1-0.6); Monocytes Percent Auto 8.2 % (2.6-8.5); Neutrophils Absolute Auto 7.4 K/mm3 (1.3-6.7); Neutrophils Percent Auto 76.1 % (45.5-73.1); Platelet Count Result 222 k/mm3 (150-375); Red Blood Count 2.99 M/mm3 (4.2-5.4); White Blood Count 9.7 K/mm3 (4.5-10.0)
[2019-09-04 04:59] LABS: Alanine Aminotransferase 14 U/L (4-35); Albumin Level 2.8 g/dL (3.5-5.1); Alkaline Phosphatase 85 U/L (38-126); Aspartate Amino Transferase 11 U/L (14-36); Bilirubin,Total 0.4 mg/dL (0.2-1.3); Blood Urea Nitrogen 31 mg/dL (7-17); Carbon Dioxide 27 mmol/L (22-30); Chloride 109 mmol/L (98-107); Estimated CRCL calculation 22 ml/min; Estimated Glomerular Filt Rate 17; Glucose 123 mg/dL (65-105); Magnesium 1.8 mg/dL (1.6-2.3); Phosphorus 4.3 mg/dL (2.5-4.5); Sodium 139 mmol/L (137-145)
[2019-09-04] MEDS: VANCOMYCIN ORAL 125 MG/2.5 ML SYRUP PO ×4 (05:08→23:26)
[2019-09-04] MEDS: hydrALAZINE HCL 20 MG/ML VIAL 10 MG IV PUSH (05:38)
[2019-09-04 06:59] LABS: Hypochromasia 1+ (NORMAL); Ovalocytes 1+ (NORMAL); Platelet Estimate Adequate (Adequate)
[2019-09-04 08:26] LABS: Glucose Point of Care 111 (65-105)
--- NOTE | 2019-09-04 08:39 | ECG_ITS ---
Measurements Intervals [place] Rate: 72 P: [place]: 0 QRS: -2 QRSD: 105 T: 80 QT: 423 QTc: 464 Interpretive Statements SINUS RHYTHM POOR R WAVE PROGRESSION, ANTERIOR LEADS BORDERLINE ST-T WAVE ABNORMALITY- LATERAL LEADS BASELINE ARTIFACT- I, II, III, AVR, AVL, AVF, V2, V5-V6 BORDERLINE ECG Electronically Signed On 09-04-2019 9:57:00 CDT by Jered Vee D.O.
--- NOTE | 2019-09-04 08:59 | PCPTNOTE ---
Attempted to see pt for PT eval. Pt in testing and experiencing chest pain. Will attempt again at a later time.
--- NOTE | 2019-09-04 09:01 | PCOTNOTE ---
Attempted OT evaluation on this date, pt is currently in testing and experiencing chest pain, will attempt at later time.
[2019-09-04 09:05] LABS: Alveolar/Arterial O2 Gradient 124.8 mmHg; Base Excess ABG -0.2 mEq/l (+/-2.0); Carboxyhemoglobin 0.3 % THb (0-2.0); Device NON-INVASIVE VENT; Fractional Inspired Oxygen 40 %; HCO3 ABG 25.3 mEq/l (22.0-26.0); Methemoglobin ABG 0.5 %THb (0-1.5); Oxygen Content ABG 13.6 %vol (16.0-22.0); Oxygen Saturation ABG 97.8 % (95.0-100.0); Oxyhemoglobin 96.6 % THb (90.0-100.0); PCO2 ABG 45.3 mmHg (35.0-45.0); PO2 ABG 108.3 mmHg (80.0-100.0); PO2 FiO2 Ratio Arterial Blood 2.71 %; Reduced Hemoglobin 2.6 %THb (0-5.0); Site Drawn RIGHT BRACHIAL; Total Hemoglobin 9.9 g/dL (12.0-18.0); pH ABG 7.365 (7.350-7.450)
[2019-09-04 09:06] LABS: Non-Invasive Expiratory Pressure 5 CMH2O; Non-Invasive Inspiratory Pressure 14 CMH2O; Non-Invasive Vent Rate 14 /MIN
--- NOTE | 2019-09-04 09:50 | PM.IMPN ---
Progress Note: A&P Assessment and Plan (1) Colitis: Code(s): K52.9 - Noninfective gastroenteritis and colitis, unspecified Status: Acute Assessment and Plan: CT abdomen revealed probable mild colitis with colonic fluid. Stool culture collected on 08/31/19 is positive for C. diff toxin A and B. Pt has recent history of antibiotic use with imipenem and IV vancomycin at prior hospitalization on 08/23-08/26/19. Patient had a rectal tube inserted on 08/31 which was discontinued due to discomfort. She complains of persistent brown, watery diarrhea. Frequency continues to decrease and she feels that she is improving. She has not had any further nausea or vomiting. She is tolerating full liquid diet. X-ray abdomen completed 09/02/19 with no dilated bowel loops or free gas. Bowel sounds are present. Continue PO Vancomycin 125 Q6H started on 09/01/19. Stop date 09/11/19 after 40 doses. Continue probiotic Continue banatrol for diarrhea Pt is tolerating full liquid diet well without nausea and vomiting. Will advance to regular diet with 2gm sodium restriction. (2) Respiratory failure: Qualifiers: Chronicity: unspecified Respiratory failure complication: unspecified whether with hypoxia or hypercapnia Qualified Code(s): J96.90 - Respiratory failure, unspecified, unspecified whether with hypoxia or hypercapnia Code(s): J96.90 - Respiratory failure, unspecified, unspecified whether with hypoxia or hypercapnia Status: Acute Assessment and Plan: At prior hospitalization from 08/23-08/25, patient developed hypoxia and respiratory failure. A home O2 trial confirmed she would require 2 L of oxygen with rest and ambulation. This was thought to be due to potential pulmonary edema or possible DARREN and outpatient follow-up was recommended. On 09/01, the pt developed increased work of breathing and diminished breath sounds. She was noted to be edematous. CXR was ordered and revealed interstitial edema and small pleural effusions. The pt is on bumex 1mg PO TIRE TESTER which was held initially due to dehydration and need for fluid resuscitation. The pt was given 2mg IV bumex yesterday. ABG was repeated with respiratory acidosis. The case was discussed with Dr. Koenig and we decided to proceed with BiPAP trial. Repeat ABG 1 hr after BiPAP initiation with slight improvement. We decided to continue BiPAP so the pt was transferred to the IMU overnight. Repeat ABG today with resolution of respiratory acidosis. CO2 appears back to patient's baseline. Echo was performed with evidence of severe pulmonary hypertension with pulmonary arterial systolic pressure estimated at 60mmHg, normal left ventricular systolic function with EF 65-70%, abnormal left ventricular diastolic function, moderate left atrial enlargement, and elevated right atrial pressure. V/Q scan was intermediate probability for PE and venous dopplers are negative. Pt is high risk for empiric heparin at this time due to colitis and I suspect that her sx are more likely explained by pulmonary edema. Repeat CXR today with atelectasis vs. pulmonary edema. Dr. Jones was consulted, recommendations are greatly appreciated Will administer an additional 1mg IV bumex (3) Heel ulcer: Qualifiers: Laterality: right Non-pressure ulcer stage: limited to breakdown of skin Qualified Code(s): L97.411 - Non-pressure chronic ulcer of right heel and midfoot limited to breakdown of skin Code(s): L97.409 - Non-pressure chronic ulcer of unspecified heel and midfoot with unspecified severity Status: Acute Assessment and Plan: Patient has chronic right heel ulcer. During her prior hospitalization, she received Imipenem and Vancomycin for the wound which were discontinued per wound care recommendations. The heel wound does not appear acutely infected. Wound care consulted and is following patient. Recommendations greatly appreciated. Continue to monitor WBC and vitals (4) HTN
[2019-09-04] MEDS: ENOXAPARIN 40 MG/0.4 ML SYRINGE SUB-Q (10:02)
[2019-09-04] MEDS: BUMETANIDE INJ 1 MG/4 ML VIAL IV PUSH (10:02)
[2019-09-04] MEDS: FAMOTIDINE 20 MG/2 ML VIAL IV PUSH ×2 (10:03→20:10)
[2019-09-04] MEDS: METOPROLOL TARTRATE 50 MG TAB 100 MG PO ×2 (10:04→20:11)
[2019-09-04] MEDS: SIMVASTATIN 20 MG TABLET 40 MG PO (10:04)
[2019-09-04] MEDS: FERROUS SULFATE 324 MG TABLET PO (10:05)
[2019-09-04] MEDS: ACIDOPHILUS/BULGARICUS CHEWABLE TABLET 1 TABLET PO ×4 (10:05→20:11)
[2019-09-04] MEDS: ASPIRIN 81 MG ENTERIC TABLET PO (10:06)
[2019-09-04 10:12] LABS: Troponin I 0.089 ng/mL (0.000-0.034)
[2019-09-04] MEDS: TOLNAFTATE 1% POWDER 45 GM BTL 1 APPLIC TOPICAL ×2 (11:17→20:14)
[2019-09-04] MEDS: COLLAGENASE OINT 30 GM TUBE 1 APPLIC TOPICAL (11:17)
--- NOTE | 2019-09-04 12:08 | PM.CNPUL ---
Assessment and Plan Assessment and plan (1) Respiratory failure, [id number]: Code(s): J96.20 - Acute and chronic respiratory failure, unspecified whether with hypoxia or hypercapnia Status: Acute (2) Pulmonary hypertension: Code(s): I27.20 - Pulmonary hypertension, unspecified Status: Acute (3) Suspected sleep apnea: Code(s): R29.818 - Other symptoms and signs involving the nervous system Status: Acute (4) Obesity: Code(s): E66.9 - Obesity, unspecified Status: Acute History of Present Illness History of Present Illness Consult date: 10/16/19 Requesting physician: Shelbie Rao PA-C Chief complaint: colitis,renal insufficiency Narrative: Please see consult dictated Sep 08, 2019. 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 Alcantara is and lives in her own home in [place]. She has 2 sons and 1 daughter. 1 daughter is unfortunately due to breast cancer. She designates her son Bowen as her surrogate decision maker. She would like to be a full code. She smoked remotely for short period of time. No alcohol or drug use. Spiritual care concerns: No Agree to blood products: Yes Meds Home Medications and Allergies Home Medications Medication Instructions Recorded Confirmed Type tolnaftate 1 applic TOPICAL Q12HR #45 gm 08/26/19 09/27/19 Rx Mepilex Border Sacrum #30 ea 09/18/19 09/27/19 Rx famotidine 20 mg PO Q12HR #60 tablet 09/18/19 09/27/19 Rx simvastatin 40 mg PO HS 09/27/19 09/27/19 History Saccharomyces boulardii [Florastor] 250 mg PO BID #30 cap 10/12/19 Rx acetaminophen [Mapap 650 mg PO Q4H PRN #30 tablet 10/12/19 Rx (acetaminophen)] albuterol sulfate 5 mg INHALATION Q6HRT PRN #30 each 10/12/19 Rx alprazolam 0.5 mg PO TID PRN #10 tablet 10/12/19 Rx amiodarone [Pacerone] 200 mg PO DAILY@0800 #30 tablet 10/12/19 Rx apixaban [Eliquis] 5 mg PO BID #60 tablet 10/12/19 Rx cholestyramine-aspartame 4 g PO BID@1000,1800 #42 each 10/12/19 Rx [Prevalite] metoprolol tartrate 25 mg PO Q12HR #60 tablet 10/12/19 Rx peg [id number] 1 drp LEFTEYE QID PRN #15 ml 10/12/19 Rx [Artificial Tears([id number]-dsgf)] tramadol 25 mg PO Q6H PRN #10 tablet 10/12/19 Rx vancomycin 125 mg PO Q8HR #90 each 10/12/19 Rx Allergies Allergy/AdvReac Type Severity Reaction Status Date / Time clindamycin Allergy Unknown Unknown Verified 08/31/19 19:34 Penicillins Allergy Unknown Hives,Skin Verified 08/31/19 19:34 irritation Sulfa (Sulfonamide Allergy Unknown Hives,Skin Verified 08/31/19 19:34 Antibiotics) irritation Vital Signs Vital Signs - 24 hr 09/03/19 14:00 09/03/19 14:35 09/03/19 15:46 Temperature 36.1 C L 35.8 C L Pulse Rate 65 86 Respiratory Rate 28 H 30 H Blood Pressure 180/74 H 182/62 H Pu
[2019-09-04 12:21] LABS: Glucose Point of Care 127 (65-105)
[2019-09-04] MEDS: ALPRAZOLAM 0.5 MG TABLET PO ×2 (12:38→20:24)
[2019-09-04] MEDS: PHARMACIST COMMUNICATION ORDER 1 EACH XX (14:03)
[2019-09-04] MEDS: hydrALAZINE 10 MG TABLET PO ×2 (14:03→20:11)
[2019-09-04 17:12] LABS: Glucose Point of Care 103 (65-105)
[2019-09-04 17:26] LABS: Alanine Aminotransferase 15 U/L (4-35); Albumin Level 2.8 g/dL (3.5-5.1); Alkaline Phosphatase 93 U/L (38-126); Aspartate Amino Transferase 13 U/L (14-36); Bilirubin,Total 0.4 mg/dL (0.2-1.3); Blood Urea Nitrogen 31 mg/dL (7-17); Calcium 7.8 mg/dL (8.4-10.2); Carbon Dioxide 29 mmol/L (22-30); Chloride 106 mmol/L (98-107); Estimated CRCL calculation 24 ml/min; Estimated Glomerular Filt Rate 19; Glucose 116 mg/dL (65-105); Potassium 3.7 mmol/L (3.4-5.0); Sodium 141 mmol/L (137-145)
--- NOTE | 2019-09-04 18:35 | PM.CNNEP ---
Assessment and Plan Assessment and plan (1) JESSICA (acute kidney injury): Code(s): N17.9 - Acute kidney failure, unspecified Status: Acute (2) Chronic kidney disease, stage IV (severe): Code(s): N18.4 - Chronic kidney disease, stage 4 (severe) Status: Acute (3) HTN (hypertension): Qualifiers: Hypertension type: essential hypertension Qualified Code(s): I10 - Essential (primary) hypertension Code(s): I10 - Essential (primary) hypertension Status: Chronic (4) Acute respiratory failure with hypoxia: Code(s): J96.01 - Acute respiratory failure with hypoxia Status: Acute (5) Colitis: Code(s): K52.9 - Noninfective gastroenteritis and colitis, unspecified Status: Acute (6) Heel ulcer: Qualifiers: Laterality: right Non-pressure ulcer stage: limited to breakdown of skin Qualified Code(s): L97.411 - Non-pressure chronic ulcer of right heel and midfoot limited to breakdown of skin Code(s): L97.409 - Non-pressure chronic ulcer of unspecified heel and midfoot with unspecified severity Status: Acute (7) UTI (urinary tract infection): Code(s): N39.0 - Urinary tract infection, site not specified Status: Acute Assessment and Plan: . Additional Plan Aurelia has what appears to be in acute insult on top of her baseline kidney disease. Her baseline kidney disease is thought to be secondary to her diabetes, hypertension, vascular disease, and age-related change. Her outpatient evaluation with regard to serologies and imaging studies did not demonstrate any other pathology present. Her creatinine is mildly elevated in comparison to baseline but this is not surprising given the multitude of acute issues and problems that she has at this time. Her necessity of IV diuretic therapy, left heel wound, suspected urinary tract infection, and colitis/diarrhea all may have potentiate in and/or caused her kidney function to deteriorate. My hope/suspicion is that as are other medical issues and problems stabilize/improve, so should her kidney function as well. At this point, I would continue empiric antibiotic therapy for the presumed infection (urinary tract infection ) and use p.r.n. IV diuretics as deemed necessary to try to improve her respiratory status on the assumption that is related to her mild pulmonary edema. I will continue follow the patient with you while she remains hospitalized to make further recommendations during her hospital course Thank you for allowing me to participate in the care this patient. History of Present Illness Reason for Consult Consult date: 09/04/19 Reason for consult: acute renal failure (on chronic kidney disease) Chief Complaint Chief complaint: colitis,renal insufficiency History of Present Illness Narrative: The patient is a 69 year old female with a past medical history as outlined below who presented to the [facility] emergency department about 3 days ago with complaints of diarrhea. For the past 2 dayas, she reports small volumes of brown-green liquid malodorous stools about ever 5 minutes initially and now about every 30 minutes. No reported hematochezia or melena but admits to nausea with 3 episodes of emesis the morning of admission as well. She denies abdominal pain or cramping, fevers, chills, weakness, fatigue, dizziness, or lightheadedness. No chest pain or shortness of breath. She denies dysuria or hematuria. She reports she has had difficulty sleeping due to repeated episodes of diarrhea. She has a history of anxiety and reports recent illness and not receiviing her home dose of Xanax at her usual time has made her feel more wired , but after taking Xanax she feels her anxiety is well controlled. She reports her heel ulcer is not painful, and she feels it is healing well. She also reports her chronic stasis dermatitis is at baseline and is non painful or bothersome. Workup
[2019-09-04 21:04] LABS: Glucose Point of Care 131 (65-105)
[2019-09-05] VITALS (23 sets, daily range): BP systolic 154–190; BP diastolic 49–72; PULSE 54–70; RESP 18–24; TEMP 36–36.8; O2SAT 92–97; BMI 43.4
[2019-09-05] MEDS: hydrALAZINE HCL 20 MG/ML VIAL 10 MG IV PUSH ×2 (03:39→21:55)
[2019-09-05 05:11] LABS: Basophils Percent Auto 0.5 % (0.2-1.2); Eosinophils Absolute Auto 0.1 K/mm3 (0-0.3); Eosinophils Percent Auto 2.2 % (0-4.4); Hematocrit 26.4 % (37.0-47.0); Hemoglobin 8.1 g/dL (12.0-15.0); Immature Granulocyte Absolute 0.03 K/mm3 (0.00-0.031); Immature Granulocyte Percent A 0.5 % (0-0.5); Lymphocytes Absolute Auto 1.22 K/mm3 (0.9-3.2); Lymphocytes Percent Auto 19.3 % (18.3-44.2); Mean Corpuscular HGB Conc 30.7 g/dl (32-36); Mean Corpuscular Hemoglobin 28.3 pg (26-34); Mean Corpuscular Volume 92.3 fl (80-100); Mean Platelet Volume 9.9 fl (7.4-10.4); Monocytes Absolute Auto 0.6 K/mm3 (0.1-0.6); Monocytes Percent Auto 9.8 % (2.6-8.5); Neutrophils Absolute Auto 4.3 K/mm3 (1.3-6.7); Neutrophils Percent Auto 67.7 % (45.5-73.1); Platelet Count Result 229 k/mm3 (150-375); Red Blood Count 2.86 M/mm3 (4.2-5.4); Red Cell Distribution Width 14.1 % (11.5-14.5); White Blood Count 6.3 K/mm3 (4.5-10.0)
[2019-09-05] MEDS: VANCOMYCIN ORAL 125 MG/2.5 ML SYRUP PO ×3 (05:50→17:39)
--- NOTE | 2019-09-05 06:42 | P.CDI_ITS ---
CDI Query Clarification Request -Pulmonary edema has been documented Please further specify acuity and cause/ possible cause of pulmonary edema: * Acute * Chronic * Acute on Chronic * Unable to Determine Cause: * Hypertension * CHF * PE * Adverse drug reaction * Inhaled toxin * Other * Unable to determine
--- NOTE | 2019-09-05 06:42 | WPDCDIQUERY2 ---
CDI Query Clarification Request -Pulmonary edema has been documented Please further specify acuity and cause/ possible cause of pulmonary edema: Acute Chronic Acute on Chronic Unable to Determine Cause: Hypertension CHF PE Adverse drug reaction Inhaled toxin Other Unable to determine
--- NOTE | 2019-09-05 08:51 | PM.IMPN ---
Progress Note: A&P Assessment and Plan (1) Colitis: Code(s): K52.9 - Noninfective gastroenteritis and colitis, unspecified Status: Acute Assessment and Plan: CT abdomen revealed probable mild colitis with colonic fluid. Stool culture collected on 08/31/19 is positive for C. diff toxin A and B. Pt has recent history of antibiotic use with imipenem and IV vancomycin at prior hospitalization on 08/23-08/26/19. Patient had a rectal tube inserted on 08/31 which was discontinued due to discomfort. She complains of persistent brown, watery diarrhea. Pt still has frequent stools 1 every 1.5hr but reports that they are becoming more formed. She is tolerating a regular diet without nausea and vomiting. Continue PO Vancomycin 125 Q6H started on 09/01/19. Stop date 09/11/19 after 40 doses. Continue probiotic Continue banatrol for diarrhea (2) Respiratory failure: Qualifiers: Chronicity: unspecified Respiratory failure complication: unspecified whether with hypoxia or hypercapnia Qualified Code(s): J96.90 - Respiratory failure, unspecified, unspecified whether with hypoxia or hypercapnia Code(s): J96.90 - Respiratory failure, unspecified, unspecified whether with hypoxia or hypercapnia Status: Acute Assessment and Plan: At prior hospitalization from 08/23-08/25, patient developed hypoxia and respiratory failure. A home O2 trial confirmed she would require 2 L of oxygen with rest and ambulation. This was thought to be due to potential pulmonary edema or possible DARREN and outpatient follow-up was recommended. On 09/01, the pt developed increased work of breathing and diminished breath sounds. She was noted to be edematous. CXR was ordered and revealed interstitial edema and small pleural effusions. The pt is on bumex 1mg PO CUSTOM TAILOR which was held initially due to dehydration and need for fluid resuscitation. The pt was given 2mg IV bumex yesterday. ABG was repeated with respiratory acidosis. The case was discussed with Dr. Koenig and we decided to proceed with BiPAP trial. Repeat ABG 1 hr after BiPAP initiation with slight improvement. We decided to continue BiPAP so the pt was transferred to the IMU overnight. Repeat ABG today with resolution of respiratory acidosis. CO2 appears back to patient's baseline. Echo was performed with evidence of severe pulmonary hypertension with pulmonary arterial systolic pressure estimated at 60mmHg, normal left ventricular systolic function with EF 65-70%, abnormal left ventricular diastolic function, moderate left atrial enlargement, and elevated right atrial pressure. V/Q scan was intermediate probability for PE and venous dopplers are negative. Pt is high risk for empiric heparin at this time due to colitis and I suspect that her sx are more likely explained by pulmonary edema. Repeat CXR today with atelectasis vs. pulmonary edema. Dr. Jones was consulted, recommendations are greatly appreciated Will continue PO bumex and IV bumex PRN Pt is benefiting from BiPAP at night. She will need formal testing for DARREN outpatient. (3) Heel ulcer: Qualifiers: Laterality: right Non-pressure ulcer stage: limited to breakdown of skin Qualified Code(s): L97.411 - Non-pressure chronic ulcer of right heel and midfoot limited to breakdown of skin Code(s): L97.409 - Non-pressure chronic ulcer of unspecified heel and midfoot with unspecified severity Status: Acute Assessment and Plan: Patient has chronic right heel ulcer. During her prior hospitalization, she received Imipenem and Vancomycin for the wound which were discontinued per wound care recommendations. The heel wound does not appear acutely infected. Wound care consulted and is following patient. Recommendations greatly appreciated. Continue to monitor WBC and vitals (4) HTN (hypertension): Qualifiers: Hypertension type: essential hypertension Qualified Code(s): I10 - Essential (primary) hypert
[2019-09-05] MEDS: hydrALAZINE HCL 25 MG TABLET PO ×2 (09:10→20:09)
[2019-09-05] MEDS: FERROUS SULFATE 324 MG TABLET PO (09:11)
[2019-09-05] MEDS: ACIDOPHILUS/BULGARICUS CHEWABLE TABLET 1 TABLET PO ×4 (09:11→20:09)
[2019-09-05] MEDS: ASPIRIN 81 MG ENTERIC TABLET PO (09:12)
[2019-09-05] MEDS: ENOXAPARIN 40 MG/0.4 ML SYRINGE SUB-Q (09:13)
[2019-09-05] MEDS: COLLAGENASE OINT 30 GM TUBE 1 APPLIC TOPICAL (09:13)
[2019-09-05] MEDS: FAMOTIDINE 20 MG/2 ML VIAL IV PUSH ×2 (09:13→20:09)
[2019-09-05] MEDS: METOPROLOL TARTRATE 50 MG TAB 100 MG PO ×2 (09:13→20:09)
[2019-09-05] MEDS: TOLNAFTATE 1% POWDER 45 GM BTL 1 APPLIC TOPICAL ×2 (09:14→20:08)
[2019-09-05] MEDS: SIMVASTATIN 20 MG TABLET 40 MG PO (09:14)
[2019-09-05 09:27] LABS: Glucose Point of Care 91 (65-105)
[2019-09-05] MEDS: BUMETANIDE 1 MG TABLET PO (10:29)
[2019-09-05 10:46] LABS: Blood Urea Nitrogen 30 mg/dL (7-17); Calcium 8.1 mg/dL (8.4-10.2); Carbon Dioxide 27 mmol/L (22-30); Chloride 109 mmol/L (98-107); Estimated CRCL calculation 27 ml/min; Estimated Glomerular Filt Rate 22; Glucose 136 mg/dL (65-105); Potassium 3.7 mmol/L (3.4-5.0); Sodium 141 mmol/L (137-145)
[2019-09-05 11:15] LABS: Magnesium 1.8 mg/dL (1.6-2.3)
[2019-09-05 12:36] LABS: Glucose Point of Care 144 (65-105)
[2019-09-05 12:50] LABS: Iron 55 ug/dL (37-170)
--- NOTE | 2019-09-05 12:52 | PM.PNNEP ---
Progress Note: A&P Assessment and Plan (1) JESSICA (acute kidney injury): Code(s): N17.9 - Acute kidney failure, unspecified Status: Acute Assessment and Plan: presumably due to acute illness, IV diuretics, pre-renal factors (from diarrhea), and infection (C.diff + Citrobacter UTI) creatinine has improved continue supportf (2) Chronic kidney disease, stage IV (severe): Code(s): N18.4 - Chronic kidney disease, stage 4 (severe) Status: Chronic Assessment and Plan: baseline creatinine ~ 1.8 - 2.2 etiology due to hypertension, diabetes, and vascular disease (3) Acute respiratory failure with hypoxia: Code(s): J96.01 - Acute respiratory failure with hypoxia Status: Acute Assessment and Plan: pneumonia versus pulmonary edema? suspect her pulmonary HTN and possiby undiagnosed DARREN(?) playing a role Pulmonary consulted for further assessment not opposed to PRN IV diuretics (4) Colitis: Code(s): K52.9 - Noninfective gastroenteritis and colitis, unspecified Status: Acute Assessment and Plan: positive for C. diff colitis stools slowing down and more formed continue current therapy (5) UTI (urinary tract infection): Code(s): N39.0 - Urinary tract infection, site not specified Status: Acute Assessment and Plan: urine culture with Citrobacter on antibiotics (6) HTN (hypertension): Qualifiers: Hypertension type: essential hypertension Qualified Code(s): I10 - Essential (primary) hypertension Code(s): I10 - Essential (primary) hypertension Status: Chronic Assessment and Plan: running on the higher side noted addition of hydralazine which seems appropriate follow trend of hemodynamics (7) Heel ulcer: Qualifiers: Laterality: right Non-pressure ulcer stage: limited to breakdown of skin Qualified Code(s): L97.411 - Non-pressure chronic ulcer of right heel and midfoot limited to breakdown of skin Code(s): L97.409 - Non-pressure chronic ulcer of unspecified heel and midfoot with unspecified severity Status: Acute Assessment and Plan: no apparent active infection continue local wound care Will continue to followl Subjective Date/time seen: 09/05/19 12:52 Overall, feeling better at the time of my visit; less stools overnight and tolerating oral intake; some issues with BP control but improved on my visit; no complaints of shortness of breath. Exam Narrative: Exam Narrative: General: WD/WN male/female in NAD Heart: normal S1 and S2; no rub Lungs: coarse breath sounds throughout Abdomen: soft, nontender, nondistended, positive bowel sounds Extremities: no cyanosis or clubbing; no edema Skin: chronic venous stasis changes noted Objective Data Vital Signs Vital Signs: Vital Signs Temp Pulse Resp BP Pulse Ox 09/05/19 12:00 36.6 C 57 L 24 H 172/60 H 97 09/05/19 11:17 93 09/05/19 10:44 62 167/61 H 09/05/19 10:00 62 09/05/19 09:13 70 09/05/19 08:00 36.6 C 64 24 H 182/58 H 94 09/05/19 06:00 64 09/05/19 05:14 154/59 H 09/05/19 04:00 54 L 92 09/05/19 03:35 36.8 C 61 20 179/63 H 92 09/05/19 02:00 56 L 09/05/19 00:30 162/66 H 09/05/19 00:00 57 L 94 09/04/19 23:42 36.6 C 64 22 H 184/80 H 94 09/04/19 22:30 170/69 H 09/04/19 22:00 54 L 09/04/19 20:11 67 09/04/19 20:00 68 09/04/19 19:49 70 22 H 176/63 H 96 09/04/19 18:00 64 09/04/19 17:00 36.7 C 61 19 167/72 H 98 09/04/19 16:00 62 98 09/04/19 14:14 92 09/04/19 14:00 61 09/04/19 13:01 36.9 C 61 20 174/77 H 98 Intake/Output Intake/Output: Intake & Output 09/02/19 09/03/19 09/04/19 09/05/19 23:59 23:59 23:59 23:59 Intake Total 3090 1880 1210 340 Output Total 1 0620 550 Balance [phone] Meds/Results Medications: Active Medications
[2019-09-05 13:01] LABS: Transferrin 139 mg/dL (206-381)
[2019-09-05 13:05] LABS: Percent Iron Saturation 26 % (20-50)
[2019-09-05 14:00] LABS: Folic Acid 11.4 ng/mL (2.76->20)
[2019-09-05] MEDS: POTASSIUM CHLORIDE 20 MEQ PACKET (FOR LIQUID) 40 MEQ PO (17:38)
[2019-09-05 17:56] LABS: Glucose Point of Care 316 (65-105)
--- NOTE | 2019-09-05 19:37 | PC.NURSE ---
Patient up ambulating in room with walker and PT at side. Tolerated well. Transferred to chair with RN at wide with walker. Returned to bed without incident.
[2019-09-05 19:55] LABS: Glucose Point of Care 154 (65-105)
[2019-09-06] VITALS (20 sets, daily range): BP systolic 153–181; BP diastolic 55–87; PULSE 51–70; RESP 16–24; TEMP 36.3–36.8; O2SAT 93–98
[2019-09-06] MEDS: VANCOMYCIN ORAL 125 MG/2.5 ML SYRUP PO ×5 (00:01→23:17)
[2019-09-06] MEDS: ALPRAZOLAM 0.5 MG TABLET PO ×4 (00:05→18:26)
[2019-09-06 05:17] LABS: Hematocrit 28.7 % (37.0-47.0); Hemoglobin 8.6 g/dL (12.0-15.0); Mean Corpuscular Hemoglobin 28.1 pg (26-34); Mean Corpuscular Volume 93.8 fl (80-100); Mean Platelet Volume 10.1 fl (7.4-10.4); Platelet Count Result 236 k/mm3 (150-375); Red Blood Count 3.06 M/mm3 (4.2-5.4); Red Cell Distribution Width 14.3 % (11.5-14.5); White Blood Count 6.3 K/mm3 (4.5-10.0)
[2019-09-06 05:26] LABS: Alanine Aminotransferase 16 U/L (4-35); Albumin Level 2.8 g/dL (3.5-5.1); Alkaline Phosphatase 79 U/L (38-126); Aspartate Amino Transferase 14 U/L (14-36); Bilirubin,Total 0.3 mg/dL (0.2-1.3); Blood Urea Nitrogen 28 mg/dL (7-17); Calcium 8.1 mg/dL (8.4-10.2); Carbon Dioxide 29 mmol/L (22-30); Chloride 109 mmol/L (98-107); Estimated CRCL calculation 28 ml/min; Estimated Glomerular Filt Rate 23; Glucose 118 mg/dL (65-105); Magnesium 1.8 mg/dL (1.6-2.3); Phosphorus 2.9 mg/dL (2.5-4.5); Potassium 3.8 mmol/L (3.4-5.0); Sodium 140 mmol/L (137-145)
[2019-09-06] MEDS: hydrALAZINE HCL 25 MG TABLET PO (05:28)
[2019-09-06 08:56] LABS: Glucose Point of Care 102 (65-105)
[2019-09-06] MEDS: FERROUS SULFATE 324 MG TABLET PO (08:57)
[2019-09-06] MEDS: ASPIRIN 81 MG ENTERIC TABLET PO (08:57)
[2019-09-06] MEDS: METOPROLOL TARTRATE 50 MG TAB 100 MG PO ×2 (08:57→21:05)
[2019-09-06] MEDS: BUMETANIDE 1 MG TABLET PO (08:57)
[2019-09-06] MEDS: ACIDOPHILUS/BULGARICUS CHEWABLE TABLET 1 TABLET PO ×4 (08:58→21:05)
[2019-09-06] MEDS: COLLAGENASE OINT 30 GM TUBE 1 APPLIC TOPICAL (08:58)
[2019-09-06] MEDS: ENOXAPARIN 40 MG/0.4 ML SYRINGE SUB-Q (08:58)
[2019-09-06] MEDS: FAMOTIDINE 20 MG/2 ML VIAL IV PUSH ×2 (08:58→21:05)
[2019-09-06] MEDS: SIMVASTATIN 20 MG TABLET 40 MG PO (08:59)
[2019-09-06] MEDS: TOLNAFTATE 1% POWDER 45 GM BTL 1 APPLIC TOPICAL ×2 (08:59→21:06)
[2019-09-06] MEDS: hydrALAZINE HCL 50 MG TABLET PO ×2 (13:15→21:06)
[2019-09-06 13:34] LABS: Glucose Point of Care 173 (65-105)
[2019-09-06 17:50] LABS: Glucose Point of Care 232 (65-105)
--- NOTE | 2019-09-06 18:12 | PM.PNNEP ---
Progress Note: A&P Assessment and Plan (1) JESSICA (acute kidney injury): Code(s): N17.9 - Acute kidney failure, unspecified Status: Acute Assessment and Plan: presumably due to acute illness, IV diuretics, pre-renal factors (from diarrhea), and infection (C.diff + Citrobacter UTI) creatinine has improved if not stabilized continue supportive therapy (2) Chronic kidney disease, stage IV (severe): Code(s): N18.4 - Chronic kidney disease, stage 4 (severe) Status: Chronic Assessment and Plan: baseline creatinine ~ 1.8 - 2.2 etiology due to hypertension, diabetes, and vascular disease (3) Acute respiratory failure with hypoxia: Code(s): J96.01 - Acute respiratory failure with hypoxia Status: Acute Assessment and Plan: pneumonia versus pulmonary edema? suspect her pulmonary HTN and possiby undiagnosed DARREN(?) playing a role Pulmonary following not opposed to PRN IV diuretics (4) Colitis: Code(s): K52.9 - Noninfective gastroenteritis and colitis, unspecified Status: Acute Assessment and Plan: positive for C. diff colitis stools slowing down and more formed continue current therapy (5) UTI (urinary tract infection): Code(s): N39.0 - Urinary tract infection, site not specified Status: Acute Assessment and Plan: urine culture with Citrobacter on antibiotics (6) HTN (hypertension): Qualifiers: Hypertension type: essential hypertension Qualified Code(s): I10 - Essential (primary) hypertension Code(s): I10 - Essential (primary) hypertension Status: Chronic Assessment and Plan: running on the higher side noted addition of hydralazine which seems appropriate follow trend of hemodynamics (7) Heel ulcer: Qualifiers: Laterality: right Non-pressure ulcer stage: limited to breakdown of skin Qualified Code(s): L97.411 - Non-pressure chronic ulcer of right heel and midfoot limited to breakdown of skin Code(s): L97.409 - Non-pressure chronic ulcer of unspecified heel and midfoot with unspecified severity Status: Acute Assessment and Plan: no apparent active infection continue local wound care Will continue to follow Subjective Date/time seen: 09/06/19 18:12 Up in chair but sleeping on my visit with her; no apparent distress noted or voiced; no events overnight or earlier this AM; remains on oxygen by nasal cannula but denies any symptoms of shortness of breath. Exam Narrative: Exam Narrative: General: WD/WN female in NAD Heart: normal S1 and S2; no rub Lungs: coarse breath sounds throughout Abdomen: soft, nontender, nondistended, positive bowel sounds Extremities: no cyanosis or clubbing; 1+ edema Skin: chronic venous stasis changes noted Objective Data Vital Signs Vital Signs: Vital Signs Temp Pulse Resp BP Pulse Ox 09/06/19 16:00 36.3 C L 57 L 22 H 177/68 H 98 09/06/19 14:00 55 L 09/06/19 12:00 36.4 C 56 L 20 177/76 H 97 09/06/19 10:00 60 09/06/19 08:57 69 09/06/19 08:00 70 96 09/06/19 07:50 36.6 C 63 18 173/58 H 96 09/06/19 06:00 65 09/06/19 04:00 36.6 C 64 24 H 168/64 H 95 09/06/19 02:00 61 09/06/19 01:30 60 93 09/06/19 00:03 36.8 C 59 L 24 H 160/55 H 95 09/06/19 00:00 62 95 09/05/19 23:00 155/56 H 09/05/19 22:12 59 L 18 96 09/05/19 22:00 59 L 09/05/19 21:35 174/49 H 09/05/19 20:59 95 09/05/19 20:09 67 09/05/19 20:00 36.4 C L 68 18 190/61 H 92 Intake/Output Intake/Output: Intake & Output 09/03/19 09/04/19 09/05/19 09/06/19 23:59 23:59 23:59 23:59 Intake Total 1880 1210 1550 1270 Output Total 1 1450 2250 1600 Balance 7771 -[phone] Meds/Results Medications: Active Medications Generic Name Dose Route Start Last Admin Trade Name Freq PRN Reason Stop Dose Admin Acetaminophen 650 mg
--- NOTE | 2019-09-06 18:14 | PM.IMPN ---
Progress Note: A&P Assessment and Plan (1) Colitis: Code(s): K52.9 - Noninfective gastroenteritis and colitis, unspecified Status: Acute (2) Respiratory failure: Qualifiers: Chronicity: unspecified Respiratory failure complication: unspecified whether with hypoxia or hypercapnia Qualified Code(s): J96.90 - Respiratory failure, unspecified, unspecified whether with hypoxia or hypercapnia Code(s): J96.90 - Respiratory failure, unspecified, unspecified whether with hypoxia or hypercapnia Status: Acute (3) UTI (urinary tract infection): Code(s): N39.0 - Urinary tract infection, site not specified Status: Acute (4) Chronic kidney disease, stage IV (severe): Code(s): N18.4 - Chronic kidney disease, stage 4 (severe) Status: Chronic (5) HTN (hypertension): Qualifiers: Hypertension type: essential hypertension Qualified Code(s): I10 - Essential (primary) hypertension Code(s): I10 - Essential (primary) hypertension Status: Chronic (6) Diabetes mellitus: Qualifiers: Diabetes mellitus medical terminologist insulin use: with intermediate use Code(s): E11.9 - Type 2 diabetes mellitus without complications Status: Chronic (7) Heel ulcer: Qualifiers: Laterality: right Non-pressure ulcer stage: limited to breakdown of skin Qualified Code(s): L97.411 - Non-pressure chronic ulcer of right heel and midfoot limited to breakdown of skin Code(s): L97.409 - Non-pressure chronic ulcer of unspecified heel and midfoot with unspecified severity Status: Acute (8) DVT prophylaxis: Code(s): Z29.9 - Encounter for prophylactic measures, unspecified Status: Acute Additional Plan Patient much improved over the past few days. Telemetry reviewed on 09/06/2019 with sinus bradycardia with heart rate in the 50s. Still requiring oxygen currently at 4 L. Appreciate input from pulmonology. Continue oral vancomycin for C difficile colitis. Urine culture now growing Citrobacter freundii. Will continue IV ceftriaxone. Blood pressure still elevated on review on 09/06/2019 with hydralazine increased. Will also continue metoprolol and diltiazem. Additionally remains on oral Bumex. Appreciate input from Nephrology. Glucose acceptably controlled. Continue current insulin and monitor. Remains on Lovenox for DVT prophylaxis. Additional plan as documented by PA. Time Spent With Patient Time with patient: 15 - 25 minutes Subjective Date/time seen: 09/06/19 18:14 Interval history: Date of Service: 09/06/2019. Admitted with C difficile colitis with subsequent acute respiratory failure. Case reviewed and discussed with PA. Patient seen this evening. Son and daughter in the room. Feeling better. Only has abdominal pain when cramping. No nausea or vomiting. No chest pain. Denies shortness of breath. Exam Narrative: Exam Narrative: Patient is awake and alert. No acute distress. HENMT: Mouth: Yes moist mucous membranes Neck: Neck: supple Lymphatic: lymphadenopathy not noted Resp: Auscultation: no rales, no wheezes and diminished lung sounds Cardio: Rate: regular rate Rhythm: regular rhythm GI: Inspection: obesity GI Palp: Yes Soft to palpation and No Tenderness to palpation present (GI) Auscultation: normal bowel sounds Skin: Other: Significant venous stasis changes on lower extremities Neuro: Cognition (Neuro): normal cognition Speech: normal speech Extrem: General: edema (Lower extremities) Psych: Mental Status: mental status grossly normal Affect: normal affect Objective Data Vital Signs Vital Signs: Vital Signs - 24 hr 09/05/19 20:00 09/05/19 20:09 09/05/19 20:59 Temperature 97.5 F L Pulse Rate 68 67 Respiratory Rate 18 Blood Pressure 190/61 H Pulse Oximetry 92 95 09/05/19 21:35 09/05/19 22:00 09/05/19 22:12 Temperature Pulse Rate 59 L 59 L Respiratory Rate 18 Blood Pressure
--- NOTE | 2019-09-06 18:24 | PM.IMPN ---
Progress Note: A&P Assessment and Plan (1) Colitis: Code(s): K52.9 - Noninfective gastroenteritis and colitis, unspecified Status: Acute Assessment and Plan: CT abdomen revealed probable mild colitis with colonic fluid. Stool culture collected on 08/31/19 is positive for C. diff toxin A and B. Pt has recent history of antibiotic use with imipenem and IV vancomycin at prior hospitalization on 08/23-08/26/19. Stool frequency is decreasing and stools are more formed. Diet advanced and she is tolerating PO intake very well. She seems to be improving. Continue PO Vancomycin 125 Q6H started on 09/01/19. Stop date 09/11/19 after 40 doses. Continue probiotic Continue banatrol for diarrhea (2) Respiratory failure: Qualifiers: Chronicity: unspecified Respiratory failure complication: unspecified whether with hypoxia or hypercapnia Qualified Code(s): J96.90 - Respiratory failure, unspecified, unspecified whether with hypoxia or hypercapnia Code(s): J96.90 - Respiratory failure, unspecified, unspecified whether with hypoxia or hypercapnia Status: Acute Assessment and Plan: Suspect that this is due to pulmonary edema as well as underlying pulmonary hypertension and possible undiagnosed sleep apnea. Pt is improving. She is doing well on BiPAP overnight. She is on 4L NC. I suspect that she will continue to improve as her activity increases and her abdominal distention resolves. Dr. Jones was consulted, recommendations are greatly appreciated Will continue PO bumex and IV bumex PRN Pt is benefiting from BiPAP at night. She will need formal testing for DARREN outpatient. Discussed the importance of weight loss with the pt as her obesity is certainly contributing (3) UTI (urinary tract infection): Code(s): N39.0 - Urinary tract infection, site not specified Status: Acute Assessment and Plan: UA consistent with UTI. Culture reveals citrobacter susceptible to ceftriaxone. Discussed with Dr. Koenig and will treat for a total of 5 days. Final day of abx will be 09/07. (4) Chronic kidney disease, stage IV (severe): Code(s): N18.4 - Chronic kidney disease, stage 4 (severe) Status: Chronic Assessment and Plan: Pt with CKD at baseline. She is established with Dr. Tang. Cr at presentation was 2.0. Cr increased, likely due to diuresis required to treat pulmonary edema, UTI, and c. diff colitis. Cr is improving significantly and is 2.1 today. Appreciate continued input from Dr. Tang (5) HTN (hypertension): Qualifiers: Hypertension type: essential hypertension Qualified Code(s): I10 - Essential (primary) hypertension Code(s): I10 - Essential (primary) hypertension Status: Chronic Assessment and Plan: Blood pressures are persistently elevated. She has required intermittent IV hydralazine as well. Suspect that her BP elevation is due to her infection. Will increase hydralazine PO to 50mg Q8HR and hydralazine IV PRN SBP >180 Dr. Tang has been consulted as well, recommendations are greatly appreciated Continue PUBLIC RELATIONS ANALYST cardizem and metoprolol Will continue to monitor (6) Diabetes mellitus: Qualifiers: Diabetes mellitus audio visual facilities engineer insulin use: with residential use Code(s): E11.9 - Type 2 diabetes mellitus without complications Status: Chronic Assessment and Plan: Patient is insulin dependent. Last A1c on 08/26/19 was 6.1. Blood sugars reviewed. Pt has decreased PO intake so PUBLIC RELATIONS ANALYST humalog is held. Continue to hold humalog for now, will likely resume tomorrow as PO intake is now increasing Initiate accuchecks, SSI, and hypoglycemia protocol (7) Heel ulcer: Qualifiers: Laterality: right Non-pressure ulcer stage: limited to breakdown of skin Qualified Code(s): L97.411 - Non-pressure chronic ulcer of right heel and midfoot limited to breakdown of skin Code(s): L97.4
[2019-09-06 20:30] LABS: Glucose Point of Care 317 (65-105)
[2019-09-07] VITALS (18 sets, daily range): BP systolic 116–176; BP diastolic 58–68; PULSE 50–87; RESP 14–28; TEMP 36.3–36.6; O2SAT 92–97
[2019-09-07 05:35] LABS: Blood Urea Nitrogen 29 mg/dL (7-17); Carbon Dioxide 29 mmol/L (22-30); Chloride 108 mmol/L (98-107); Estimated CRCL calculation 27 ml/min; Estimated Glomerular Filt Rate 22; Glucose 176 mg/dL (65-105); Magnesium 1.9 mg/dL (1.6-2.3); Phosphorus 3.7 mg/dL (2.5-4.5); Potassium 4.3 mmol/L (3.4-5.0); Sodium 141 mmol/L (137-145)
[2019-09-07] MEDS: hydrALAZINE HCL 50 MG TABLET PO ×3 (06:17→22:41)
[2019-09-07] MEDS: VANCOMYCIN ORAL 125 MG/2.5 ML SYRUP PO ×3 (06:17→17:41)
[2019-09-07] MEDS: SIMVASTATIN 20 MG TABLET 40 MG PO (09:08)
[2019-09-07] MEDS: METOPROLOL TARTRATE 50 MG TAB 100 MG PO ×2 (09:09→20:49)
[2019-09-07] MEDS: ENOXAPARIN 40 MG/0.4 ML SYRINGE SUB-Q (09:09)
[2019-09-07] MEDS: FAMOTIDINE 20 MG/2 ML VIAL IV PUSH ×2 (09:09→20:50)
[2019-09-07] MEDS: ALPRAZOLAM 0.5 MG TABLET PO ×3 (09:10→17:44)
[2019-09-07] MEDS: ASPIRIN 81 MG ENTERIC TABLET PO (09:10)
[2019-09-07] MEDS: ACIDOPHILUS/BULGARICUS CHEWABLE TABLET 1 TABLET PO ×4 (09:10→20:50)
[2019-09-07] MEDS: BUMETANIDE 1 MG TABLET PO (09:10)
[2019-09-07] MEDS: FERROUS SULFATE 324 MG TABLET PO (09:11)
[2019-09-07 10:21] LABS: Glucose Point of Care 142 (65-105)
--- NOTE | 2019-09-07 11:42 | P.PNNP_ITS ---
Progress Note: A&P Assessment and Plan (1) JESSICA (acute kidney injury): Code(s): N17.9 - Acute kidney failure, unspecified Status: Acute Assessment and Plan: * presumably due to acute illness, IV diuretics, pre-renal factors (from diarrhea), and infection (C.diff + Citrobacter UTI) * creatinine has improved if not stabilized * continue supportive therapy (2) Chronic kidney disease, stage IV (severe): Code(s): N18.4 - Chronic kidney disease, stage 4 (severe) Status: Chronic Assessment and Plan: * baseline creatinine ~ 1.8 - 2.2mg/dl * etiology due to hypertension, diabetes, and vascular disease (3) Acute respiratory failure with hypoxia: Code(s): J96.01 - Acute respiratory failure with hypoxia Status: Acute Assessment and Plan: * pneumonia versus pulmonary edema? * suspect her pulmonary HTN and possiby undiagnosed DARREN(?) playing a role as well * Pulmonary following * not opposed to PRN IV diuretics (on oral bumex currently) (4) Colitis: Code(s): K52.9 - Noninfective gastroenteritis and colitis, unspecified Status: Acute Assessment and Plan: * positive for C. diff colitis * stools slowing down and more formed * continue current therapy (5) UTI (urinary tract infection): Code(s): N39.0 - Urinary tract infection, site not specified Status: Acute Assessment and Plan: * urine culture with Citrobacter * on antibiotics (6) HTN (hypertension): Qualifiers: Hypertension type: essential hypertension Qualified Code(s): I10 - Essential (primary) hypertension Code(s): I10 - Essential (primary) hypertension Status: Chronic Assessment and Plan: * somewhat better * titrate hydralazine dosage for now * need another agent/medication? * follow trend of hemodynamics (7) Heel ulcer: Qualifiers: Laterality: right Non-pressure ulcer stage: limited to breakdown of skin Qualified Code(s): L97.411 - Non-pressure chronic ulcer of right heel and midfoot limited to breakdown of skin Code(s): L97.409 - Non-pressure chronic ulcer of unspecified heel and midfoot with unspecified severity Status: Acute Assessment and Plan: * no apparent active infection * continue local wound care Will continue to follow Subjective Date/time seen: 09/07/19 11:42 States that overall she is feeling reasonably well; no acute issues or complaints voiced at this time; no events overnight or earlier this AM to report; no apparent distress on my visit. Exam Narrative: Exam Narrative: General: WD/WN female in NAD Heart: normal S1 and S2; no rub Lungs: coarse breath sounds throughout Abdomen: soft, nontender, nondistended, positive bowel sounds Extremities: no cyanosis or clubbing; 1+ edema Skin: chronic venous stasis changes present Objective Data Vital Signs Vital Signs: Vital Signs Temp Pulse Resp BP Pulse Ox 09/07/19 10:00 59 L 09/07/19 09:11 97 09/07/19 09:09 66 09/07/19 08:30 36.4 C 65 14 171/58 H 94 09/07/19 08:00 61 09/07/19 06:00 60 09/07/19 04:00 36.6 C 59 L 28 H 152/60 H 95 09/07/19 02:00 55 L 09/07/19 01:25 77 20 96 09/07/19 00:00 50 L 09/06/19 23:14 36.5 C 51 L 16 153/67 H 95 09/06/19 22:15 69 22 H 95 09/06/19 22:0
--- NOTE | 2019-09-07 11:42 | PM.PNNEP ---
Progress Note: A&P Assessment and Plan (1) JESSICA (acute kidney injury): Code(s): N17.9 - Acute kidney failure, unspecified Status: Acute Assessment and Plan: presumably due to acute illness, IV diuretics, pre-renal factors (from diarrhea), and infection (C.diff + Citrobacter UTI) creatinine has improved if not stabilized continue supportive therapy (2) Chronic kidney disease, stage IV (severe): Code(s): N18.4 - Chronic kidney disease, stage 4 (severe) Status: Chronic Assessment and Plan: baseline creatinine ~ 1.8 - 2.2mg/dl etiology due to hypertension, diabetes, and vascular disease (3) Acute respiratory failure with hypoxia: Code(s): J96.01 - Acute respiratory failure with hypoxia Status: Acute Assessment and Plan: pneumonia versus pulmonary edema? suspect her pulmonary HTN and possiby undiagnosed DARREN(?) playing a role as well Pulmonary following not opposed to PRN IV diuretics (on oral bumex currently) (4) Colitis: Code(s): K52.9 - Noninfective gastroenteritis and colitis, unspecified Status: Acute Assessment and Plan: positive for C. diff colitis stools slowing down and more formed continue current therapy (5) UTI (urinary tract infection): Code(s): N39.0 - Urinary tract infection, site not specified Status: Acute Assessment and Plan: urine culture with Citrobacter on antibiotics (6) HTN (hypertension): Qualifiers: Hypertension type: essential hypertension Qualified Code(s): I10 - Essential (primary) hypertension Code(s): I10 - Essential (primary) hypertension Status: Chronic Assessment and Plan: somewhat better titrate hydralazine dosage for now need another agent/medication? follow trend of hemodynamics (7) Heel ulcer: Qualifiers: Laterality: right Non-pressure ulcer stage: limited to breakdown of skin Qualified Code(s): L97.411 - Non-pressure chronic ulcer of right heel and midfoot limited to breakdown of skin Code(s): L97.409 - Non-pressure chronic ulcer of unspecified heel and midfoot with unspecified severity Status: Acute Assessment and Plan: no apparent active infection continue local wound care Will continue to follow Subjective Date/time seen: 09/07/19 11:42 States that overall she is feeling reasonably well; no acute issues or complaints voiced at this time; no events overnight or earlier this AM to report; no apparent distress on my visit. Exam Narrative: Exam Narrative: General: WD/WN female in NAD Heart: normal S1 and S2; no rub Lungs: coarse breath sounds throughout Abdomen: soft, nontender, nondistended, positive bowel sounds Extremities: no cyanosis or clubbing; 1+ edema Skin: chronic venous stasis changes present Objective Data Vital Signs Vital Signs: Vital Signs Temp Pulse Resp BP Pulse Ox 09/07/19 10:00 59 L 09/07/19 09:11 97 09/07/19 09:09 66 09/07/19 08:30 36.4 C 65 14 171/58 H 94 09/07/19 08:00 61 09/07/19 06:00 60 09/07/19 04:00 36.6 C 59 L 28 H 152/60 H 95 09/07/19 02:00 55 L 09/07/19 01:25 77 20 96 09/07/19 00:00 50 L 09/06/19 23:14 36.5 C 51 L 16 153/67 H 95 09/06/19 22:15 69 22 H 95 09/06/19 22:00 57 L 09/06/19 21:05 59 L 09/06/19 20:00 60 09/06/19 19:42 36.3 C L 60 22 H 181/87 H 96 09/06/19 18:00 60 09/06/19 16:00 36.3 C L 57 L 22 H 177/68 H 98 09/06/19 14:00 55 L 09/06/19 12:00 36.4 C 56 L 20 177/76 H 97 Intake/Output Intake/Output: Intake & Output 09/04/19 09/05/19 09/06/19 09/07/19 23:59 23:59 23:59 23:59 Intake Total 1210 1550 2310 540 Output Total 1450 2250 2300 250 Balance -240 -700 10 290 Meds/Results Medications: Active Medications Generic Name Dose Route Start Last Admin Trade Name Freq PRN Reason Stop Dose Admin Aceta
[2019-09-07] MEDS: INSULIN ASPART (*BKC) 100 UNITS/ML SUB-Q ×2 (11:58→17:42)
[2019-09-07] MEDS: COLLAGENASE OINT 30 GM TUBE 1 APPLIC TOPICAL (12:00)
[2019-09-07] MEDS: TOLNAFTATE 1% POWDER 45 GM BTL 1 APPLIC TOPICAL ×2 (12:00→20:51)
--- NOTE | 2019-09-07 12:19 | PCOTNOTE ---
Patient not available x2 attempts this am due to nursing and doctor. Patient declined treatment on third attempt due to fatigue and stated I did therapy already .
[2019-09-07 13:51] LABS: Glucose Point of Care 240 (65-105)
[2019-09-07] MEDS: ACETAMINOPHEN 325 MG TABLET 650 MG PO (14:53)
--- NOTE | 2019-09-07 17:37 | PM.IMPN ---
Progress Note: A&P Assessment and Plan (1) Colitis: Code(s): K52.9 - Noninfective gastroenteritis and colitis, unspecified Status: Acute Assessment and Plan: Pt continues to improve. Stool frequency has decreased. Pt has advanced diet well. Continue PO Vancomycin 125 Q6H started on 09/01/19. Stop date 09/11/19 after 40 doses. Continue probiotic Continue banatrol for diarrhea (2) Respiratory failure: Qualifiers: Chronicity: unspecified Respiratory failure complication: unspecified whether with hypoxia or hypercapnia Qualified Code(s): J96.90 - Respiratory failure, unspecified, unspecified whether with hypoxia or hypercapnia Code(s): J96.90 - Respiratory failure, unspecified, unspecified whether with hypoxia or hypercapnia Status: Acute Assessment and Plan: Suspect that this is due to pulmonary edema as well as underlying pulmonary hypertension and possible undiagnosed sleep apnea. Pt is improving although she has rales at the bases. She is on 2L NC. CXR repeated with evidence of pulmonary edema vs pneumonia with aspiration not excluded. Dr. Jones was consulted, recommendations are greatly appreciated. Will discuss CT with Dr. Jones. Pt is on IV ceftriaxone. Will begin empiric IV metronidazole as well for possible PNA/aspiration. Will continue PO bumex and IV bumex PRN Pt is benefiting from BiPAP at night. She will need formal testing for DARREN outpatient. Discussed the importance of weight loss with the pt as her obesity is certainly contributing (3) UTI (urinary tract infection): Code(s): N39.0 - Urinary tract infection, site not specified Status: Acute Assessment and Plan: UA consistent with UTI. Culture reveals citrobacter susceptible to ceftriaxone. Discussed with Dr. Koenig and will treat for a total of 5 days. Final day of abx will be 09/07. (4) Chronic kidney disease, stage IV (severe): Code(s): N18.4 - Chronic kidney disease, stage 4 (severe) Status: Chronic Assessment and Plan: Pt with CKD at baseline. She is established with Dr. Tang. Cr at presentation was 2.0. Cr increased, likely due to diuresis required to treat pulmonary edema, UTI, and c. diff colitis. Appreciate continued input from Dr. Tang (5) HTN (hypertension): Qualifiers: Hypertension type: essential hypertension Qualified Code(s): I10 - Essential (primary) hypertension Code(s): I10 - Essential (primary) hypertension Status: Chronic Assessment and Plan: Blood pressures are persistently elevated. She has required intermittent IV hydralazine as well. Suspect that her BP elevation is due to her infection. Will increase hydralazine PO to 50mg Q8HR and hydralazine IV PRN SBP >180 Dr. Tang has been consulted as well, recommendations are greatly appreciated. Continue OPERATING ROOM MANAGER cardizem and metoprolol Will continue to monitor (6) Diabetes mellitus: Qualifiers: Diabetes mellitus mcfp insulin use: with dermatological surgeon use Code(s): E11.9 - Type 2 diabetes mellitus without complications Status: Chronic Assessment and Plan: Patient is insulin dependent. Last A1c on 08/26/19 was 6.1. Blood sugars reviewed. Pt has decreased PO intake so OPERATING ROOM MANAGER humalog is held. Will add low dose lantus Initiate accuchecks, SSI, and hypoglycemia protocol (7) Heel ulcer: Qualifiers: Laterality: right Non-pressure ulcer stage: limited to breakdown of skin Qualified Code(s): L97.411 - Non-pressure chronic ulcer of right heel and midfoot limited to breakdown of skin Code(s): L97.409 - Non-pressure chronic ulcer of unspecified heel and midfoot with unspecified severity Status: Acute Assessment and Plan: Patient has chronic right heel ulcer. During her prior hospitalization, she received Imipenem and Vancomycin for the wound which were discontinued per wound care recommendat
[2019-09-07] MEDS: BUMETANIDE INJ 2.5 MG/10 ML VIAL 2 MG IV PUSH (17:41)
[2019-09-07 18:01] LABS: Glucose Point of Care 206 (65-105)
--- NOTE | 2019-09-07 19:03 | PC.NURSE ---
This patient, Aurelia Alcantara, was received from [[facility] on 09/07/19 at 1903. Personal belongings list checked and signed. Patient/family oriented to unit policies and routines
--- NOTE | 2019-09-07 19:08 | PC.NURSE ---
This patient, Aurelia Alcantara, was transferred to [facility] on 09/07/19 at 1900. Personal belongings sent with patient. Belongings list checked. Report given to Kim CHAPMAN. Appropriate documentation sent with patient.
[2019-09-07] MEDS: INSULIN GLARGINE (*BKC) 100 UNITS/ML 10 UNITS SUB-Q (20:52)
[2019-09-07 21:02] LABS: Glucose Point of Care 232 (65-105)
[2019-09-08] VITALS (7 sets, daily range): BP systolic 153–196; BP diastolic 51–57; PULSE 52–61; RESP 20–26; TEMP 36.1–36.7; O2SAT 94–98
[2019-09-08] MEDS: VANCOMYCIN ORAL 125 MG/2.5 ML SYRUP PO ×4 (01:50→17:54)
[2019-09-08] MEDS: metroNIDAZOLE 500 MG/ISO 100ML 500 MG/100 ML BAG 100 MG IVPB ×2 (01:50→05:43)
[2019-09-08] MEDS: hydrALAZINE HCL 50 MG TABLET PO ×3 (05:45→21:26)
[2019-09-08] MEDS: ACIDOPHILUS/BULGARICUS CHEWABLE TABLET 1 TABLET PO ×4 (08:08→20:31)
[2019-09-08] MEDS: SIMVASTATIN 20 MG TABLET 40 MG PO (08:08)
[2019-09-08] MEDS: ALPRAZOLAM 0.5 MG TABLET PO ×3 (08:08→17:54)
[2019-09-08] MEDS: METOPROLOL TARTRATE 50 MG TAB 100 MG PO ×2 (08:09→20:30)
[2019-09-08] MEDS: BUMETANIDE 1 MG TABLET PO ×2 (08:09→17:54)
[2019-09-08] MEDS: ENOXAPARIN 40 MG/0.4 ML SYRINGE SUB-Q (08:09)
[2019-09-08] MEDS: ASPIRIN 81 MG ENTERIC TABLET PO (08:09)
[2019-09-08] MEDS: FAMOTIDINE 20 MG/2 ML VIAL IV PUSH ×2 (08:10→20:31)
[2019-09-08] MEDS: FERROUS SULFATE 324 MG TABLET PO (08:10)
[2019-09-08] MEDS: TOLNAFTATE 1% POWDER 45 GM BTL 1 APPLIC TOPICAL ×2 (08:10→20:31)
[2019-09-08] MEDS: COLLAGENASE OINT 30 GM TUBE 1 APPLIC TOPICAL (08:11)
[2019-09-08 08:27] LABS: Basophils Absolute Auto 0.1 K/mm3 (0.0-0.1); Basophils Percent Auto 0.9 % (0.2-1.2); Eosinophils Absolute Auto 0.2 K/mm3 (0-0.3); Eosinophils Percent Auto 2.8 % (0-4.4); Hematocrit 29.9 % (37.0-47.0); Hemoglobin 8.8 g/dL (12.0-15.0); Immature Granulocyte Absolute 0.14 K/mm3 (0.00-0.031); Immature Granulocyte Percent A 2.5 % (0-0.5); Lymphocytes Absolute Auto 1.23 K/mm3 (0.9-3.2); Lymphocytes Percent Auto 21.7 % (18.3-44.2); Mean Corpuscular HGB Conc 29.4 g/dl (32-36); Mean Corpuscular Hemoglobin 28.1 pg (26-34); Mean Corpuscular Volume 95.5 fl (80-100); Mean Platelet Volume 9.6 fl (7.4-10.4); Monocytes Absolute Auto 0.6 K/mm3 (0.1-0.6); Monocytes Percent Auto 10.2 % (2.6-8.5); Neutrophils Absolute Auto 3.5 K/mm3 (1.3-6.7); Neutrophils Percent Auto 61.9 % (45.5-73.1); Platelet Count Result 229 k/mm3 (150-375); Red Blood Count 3.13 M/mm3 (4.2-5.4); Red Cell Distribution Width 14.7 % (11.5-14.5); White Blood Count 5.7 K/mm3 (4.5-10.0)
[2019-09-08 09:12] LABS: Glucose Point of Care 157 (65-105)
--- NOTE | 2019-09-08 09:57 | PM.IMPN ---
Progress Note: A&P Assessment and Plan (1) Colitis: Code(s): K52.9 - Noninfective gastroenteritis and colitis, unspecified Status: Acute Assessment and Plan: Pt continues to improve. Diet advanced and she is tolerating well. Stool frequency greatly decreased and diarrhea no longer present. Continue PO Vancomycin 125 Q6H started on 09/01/19. Stop date 09/11/19 after 40 doses. Continue probiotic Continue banatrol for diarrhea (2) Respiratory failure: Qualifiers: Chronicity: unspecified Respiratory failure complication: unspecified whether with hypoxia or hypercapnia Qualified Code(s): J96.90 - Respiratory failure, unspecified, unspecified whether with hypoxia or hypercapnia Code(s): J96.90 - Respiratory failure, unspecified, unspecified whether with hypoxia or hypercapnia Status: Acute Assessment and Plan: Suspect that this is due to pulmonary edema as well as underlying pulmonary hypertension, sleep apnea, and obesity hypoventilation syndrome. Rales auscultated at the bases yesterday which are no longer appreciated today. Suspect adequate response to IV diuresis. She is on 3 L NC. She denies fever, chills, cough, SOB, chest pain, myalgia. Suspect CXR finidings more consistent with CHF and pulmonary edema due to adequate response to diuresis. Clinically, I feel that PNA/aspiration is much less likely. The pt was started on IV flagyl but I feel that PNA/aspiration is very unlikely after good response to IV diuresis last night. Will discontinue IV flagyl Dr. Jones was consulted, recommendations are greatly appreciated. Will continue PO bumex and IV bumex PRN Pt is benefiting from BiPAP at night. She will need formal testing for DARREN outpatient. She believes she was formally tested in the past but has never used CPAP. Discussed the importance of weight loss with the pt as her obesity is certainly contributing (3) UTI (urinary tract infection): Code(s): N39.0 - Urinary tract infection, site not specified Status: Acute Assessment and Plan: UA consistent with UTI. Culture reveals citrobacter susceptible to ceftriaxone. Discussed with Dr. Koenig and will treat for a total of 5 days. Final day of IV ceftriaxone will be 09/07. Will likely remove sears soon (4) Chronic kidney disease, stage IV (severe): Code(s): N18.4 - Chronic kidney disease, stage 4 (severe) Status: Chronic Assessment and Plan: Pt with CKD at baseline. She is established with Dr. Tang. Cr at presentation was 2.0. 2.2 today, increased from 2.1 09/06 which may be related to diuresis. Appreciate continued input from Dr. Tang (5) HTN (hypertension): Qualifiers: Hypertension type: essential hypertension Qualified Code(s): I10 - Essential (primary) hypertension Code(s): I10 - Essential (primary) hypertension Status: Chronic Assessment and Plan: Blood pressures are persistently elevated. She has required intermittent IV hydralazine as well. Suspect that her BP elevation is due to her infection. Hydralazine PO to 50mg Q8HR and hydralazine IV PRN SBP >180 I have reached out to Dr. 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 Last A1c on 08/26/19 was 6.1. Blood sugars reviewed and improving. Continue low dose lantus ACHS, SSI, and hypoglycemia protocol (7) Heel ulcer: Qualifiers: Laterality: right Non-pressure ulcer stage: limited to breakdown of skin Qualified Code(
[2019-09-08] MEDS: lisinopriL 10 MG TABLET PO (12:48)
[2019-09-08 13:11] LABS: Alanine Aminotransferase 17 U/L (4-35); Albumin Level 2.8 g/dL (3.5-5.1); Alkaline Phosphatase 85 U/L (38-126); Aspartate Amino Transferase 14 U/L (14-36); Bilirubin,Total 0.2 mg/dL (0.2-1.3); Blood Urea Nitrogen 26 mg/dL (7-17); Calcium 8.2 mg/dL (8.4-10.2); Carbon Dioxide 32 mmol/L (22-30); Chloride 107 mmol/L (98-107); Estimated CRCL calculation 23 ml/min; Estimated Glomerular Filt Rate 19; Glucose 180 mg/dL (65-105); Potassium 4.3 mmol/L (3.4-5.0); Sodium 140 mmol/L (137-145)
[2019-09-08 14:36] LABS: Glucose Point of Care 164 (65-105)
--- NOTE | 2019-09-08 15:44 | P.PNNP_ITS ---
Progress Note: A&P Assessment and Plan (1) JESSICA (acute kidney injury): Code(s): N17.9 - Acute kidney failure, unspecified Status: Acute Assessment and Plan: * presumably due to acute illness, IV diuretics, pre-renal factors (from diarrhea), and infection (C.diff + Citrobacter UTI) * creatinine relatively stable * continue supportive therapy (2) Chronic kidney disease, stage IV (severe): Code(s): N18.4 - Chronic kidney disease, stage 4 (severe) Status: Chronic Assessment and Plan: * baseline creatinine ~ 1.8 - 2.2mg/dl * etiology due to hypertension, diabetes, and vascular disease * this may be a situation where we have to accept a higher creatinine to keep her respiratory/volume status stable (3) Acute respiratory failure with hypoxia: Code(s): J96.01 - Acute respiratory failure with hypoxia Status: Acute Assessment and Plan: * pneumonia versus pulmonary edema? * evidence to date would argue more in favor of pulmonary edema * suspect her pulmonary HTN and possiby undiagnosed DARREN(?) playing a role as well * Pulmonary following * not opposed to PRN IV diuretics (on oral bumex currently) (4) Colitis: Code(s): K52.9 - Noninfective gastroenteritis and colitis, unspecified Status: Acute Assessment and Plan: * positive for C. diff colitis * stools slowing down and more formed * continue current therapy (5) UTI (urinary tract infection): Code(s): N39.0 - Urinary tract infection, site not specified Status: Acute Assessment and Plan: * urine culture with Citrobacter * on antibiotics (6) HTN (hypertension): Qualifiers: Hypertension type: essential hypertension Qualified Code(s): I10 - Essential (primary) hypertension Code(s): I10 - Essential (primary) hypertension Status: Chronic Assessment and Plan: * somewhat better but still elevated * titrate hydralazine * may need another agent/medication -- started on lisinopril * follow trend of hemodynamics as well as creatinine (7) Heel ulcer: Qualifiers: Laterality: right Non-pressure ulcer stage: limited to breakdown of skin Qualified Code(s): L97.411 - Non-pressure chronic ulcer of right heel and midfoot limited to breakdown of skin Code(s): L97.409 - Non-pressure chronic ulcer of unspecified heel and midfoot with unspecified severity Status: Acute Assessment and Plan: * no apparent active infection * continue local wound care Will continue to follow Subjective Date/time seen: 09/08/19 15:44 Respiratory status seems to be improving and improvement seems to correlate with diuresis (weaned down to 2L of oxygen from 4L after IV bumex administration); overall, the patient states she feels better as well; no other acute issues or events overnight or earlier this AM. Exam Narrative: Exam Narrative: General: WD/WN female in NAD Heart: normal S1 and S2; no rub Lungs: coarse breath sounds; decreased at bases Abdomen: soft, nontender, nondistended, positive bowel sounds Extremities: no cyanosis or clubbing; 1+ edema Skin: chronic venous stasis changes noted Objective Data Vital Signs Vital Signs: Vital Signs Temp Pulse Resp BP Pulse Ox 09/08/19 06:00 36.1 C L 58 L 24 H 169/55 H 96 09/08/19 03:00 57 L 23 H 94 09/07/19 22:28 51 L 25 H 92 09/07/19 22:00 36.4 C L 57 L 20 163/58 H
--- NOTE | 2019-09-08 15:44 | PM.PNNEP ---
Progress Note: A&P Assessment and Plan (1) JESSICA (acute kidney injury): Code(s): N17.9 - Acute kidney failure, unspecified Status: Acute Assessment and Plan: presumably due to acute illness, IV diuretics, pre-renal factors (from diarrhea), and infection (C.diff + Citrobacter UTI) creatinine relatively stable continue supportive therapy (2) Chronic kidney disease, stage IV (severe): Code(s): N18.4 - Chronic kidney disease, stage 4 (severe) Status: Chronic Assessment and Plan: baseline creatinine ~ 1.8 - 2.2mg/dl etiology due to hypertension, diabetes, and vascular disease this may be a situation where we have to accept a higher creatinine to keep her respiratory/volume status stable (3) Acute respiratory failure with hypoxia: Code(s): J96.01 - Acute respiratory failure with hypoxia Status: Acute Assessment and Plan: pneumonia versus pulmonary edema? evidence to date would argue more in favor of pulmonary edema suspect her pulmonary HTN and possiby undiagnosed DARREN(?) playing a role as well Pulmonary following not opposed to PRN IV diuretics (on oral bumex currently) (4) Colitis: Code(s): K52.9 - Noninfective gastroenteritis and colitis, unspecified Status: Acute Assessment and Plan: positive for C. diff colitis stools slowing down and more formed continue current therapy (5) UTI (urinary tract infection): Code(s): N39.0 - Urinary tract infection, site not specified Status: Acute Assessment and Plan: urine culture with Citrobacter on antibiotics (6) HTN (hypertension): Qualifiers: Hypertension type: essential hypertension Qualified Code(s): I10 - Essential (primary) hypertension Code(s): I10 - Essential (primary) hypertension Status: Chronic Assessment and Plan: somewhat better but still elevated titrate hydralazine may need another agent/medication -- started on lisinopril follow trend of hemodynamics as well as creatinine (7) Heel ulcer: Qualifiers: Laterality: right Non-pressure ulcer stage: limited to breakdown of skin Qualified Code(s): L97.411 - Non-pressure chronic ulcer of right heel and midfoot limited to breakdown of skin Code(s): L97.409 - Non-pressure chronic ulcer of unspecified heel and midfoot with unspecified severity Status: Acute Assessment and Plan: no apparent active infection continue local wound care Will continue to follow Subjective Date/time seen: 09/08/19 15:44 Respiratory status seems to be improving and improvement seems to correlate with diuresis (weaned down to 2L of oxygen from 4L after IV bumex administration); overall, the patient states she feels better as well; no other acute issues or events overnight or earlier this AM. Exam Narrative: Exam Narrative: General: WD/WN female in NAD Heart: normal S1 and S2; no rub Lungs: coarse breath sounds; decreased at bases Abdomen: soft, nontender, nondistended, positive bowel sounds Extremities: no cyanosis or clubbing; 1+ edema Skin: chronic venous stasis changes noted Objective Data Vital Signs Vital Signs: Vital Signs Temp Pulse Resp BP Pulse Ox 09/08/19 06:00 36.1 C L 58 L 24 H 169/55 H 96 09/08/19 03:00 57 L 23 H 94 09/07/19 22:28 51 L 25 H 92 09/07/19 22:00 36.4 C L 57 L 20 163/58 H 96 09/07/19 21:52 36.6 C 87 16 116/68 95 09/07/19 20:49 57 L 09/07/19 16:00 36.3 C L 55 L 24 H 176/67 H 93 Intake/Output Intake/Output: Intake & Output 09/05/19 09/06/19 09/07/19 09/08/19 23:59 23:59 23:59 23:59 Intake Total 1550 2310 1050 690 Output Total 2250 2300 650 450 Balance -700 10 400 240 Meds/Results Medications: Active Medications Generic Name Dose Route Start Last Admin Trade Name Miguelq PRN Reason Stop Dose Admin Acetaminophen 650 mg 09/02/19 09:15 09/07/19 14:53 Tylenol
[2019-09-08] MEDS: INSULIN ASPART (*BKC) 100 UNITS/ML SUB-Q (17:54)
[2019-09-08 18:46] LABS: Glucose Point of Care 222 (65-105)
[2019-09-08] MEDS: INSULIN GLARGINE (*BKC) 100 UNITS/ML 10 UNITS SUB-Q (20:32)
[2019-09-08] MEDS: ACETAMINOPHEN 325 MG TABLET 650 MG PO (21:26)
--- NOTE | 2019-09-08 22:04 | CONS_ITS ---
DATE OF CONSULTATION: 09/08/2019 REASON FOR CONSULTATION: Shelbie Rao, consulted me to see this patient for acute respiratory failure. HISTORY: This patient is a 69-year-old female with diabetes mellitus, on insulin; hypertension; chronic lower extremity stasis dermatitis; and chronic right heel ulcers. She is morbidly obese with a body mass index of 43.2 and has chronic kidney disease. She presented to the emergency department on August 30. She was recently hospitalized on August 23 through August 25 with a suspected fungal infection of her abdominal pannus and for infection of her right heel ulcer. She was treated with vancomycin and imipenem. She went home on August 25, returned on August 30, complaining of diarrhea for 2 days. A rectal tube was placed. Initially, she was on 2 L/minute with a saturation of 98% and a respiratory rate of 22 without a fever. She was treated for colitis with oral vancomycin, probiotics, a clear liquid diet, and IV fluids as her CT of the abdomen showed mild colitis with colonic fluid and she was having frequent liquid brown stools for 2 days. She had significant elevation of her blood pressure, her diabetes was under adequate control. She did have a creatinine of 1.[address] Tang began to follow her. Initially, her respiratory status was pretty stable. On the prior admission August 23, she developed hypoxia and respiratory failure. She did go home on 2 L of oxygen. Because there was such a short amount of time between her discharge on August 25 and readmission on August 30, she did not have time to see her regular medical doctor. She moved from a regular medical room to the IMU due to increased respiratory distress. She had an elevated pCO2. She required BiPAP starting on September 02 because her pCO2 increased to 63.6. She had a metabolic acidosis. Her initial blood gas was almost normal with mild hypoxemia. She did not have a blood gas on the last admission. On this admission, her first blood gas was on September 02 showing a pH of 7.21, pCO2 of 65.5, PO2 of 65.4, HC03 of 26.1, saturation 88.1% on 3 L a minute. She was started on BiPAP when her chest x-ray showed pulmonary edema and this eventually improved. By September 03, blood gas was normalized, pH 7.36, pCO2 of 45.3, PO2 of 108.3 on BiPAP 14/5, 40% and a rate of 14. The apparent cause for her hypercapnia was pulmonary edema. She did not have excessive amounts of sedatives, the chest x-ray was consistent with pulmonary edema and there is a history of smoking, however, she has not smoked for many years. The history and physical indicates that she has never been a smoker, but she said she did smoke, but quit approximately 20 some years ago. 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 She has no occupational exposure. She is and has lost one daughter. She has had prior episodes of shortness of breath. In 2015, she had a CTA that showed pulmonary edema and cardiomegaly with small pleural effusions. There was no evidence of a pulmonary emboli. This was 08/03/2014. She developed acute kidney failure this admission, which was attributed to IV diuretics infection with a C.diff and the Citrobacter UTI. She improved with some IV fluids. She does also have pulmonary hypertension noted on her echocardiogram. It is poor quality due to her large size. ALLERGIES: CLINDAMYCIN, PENICILLIN, AND SULFA. MEDICATIONS: Probiotics 1 q.i.d., Xanax 0.5 mg t.i.d., aspirin 81 mg a day, ceftriaxone 1 g IV daily, diltiazem 360 mg a day. Lovenox 30 mg subcu daily, Pepcid 20 mg IV q.12 hours, ferrous sulfate 324 mg daily, hydralazine 10 mg IV push q.6 hours p.r.n. blood pressure over 180, hydralazine 50 mg p.o. q.8 hours, Aspart sliding scale insulin, glargine 10 units subcu h.s., lisinopril 10 mg a day, Mepilex topically q.72 hours, metoprolol tartrate 100 mg q.12 chris
[2019-09-09] VITALS (10 sets, daily range): BP systolic 144–178; BP diastolic 48–66; PULSE 54–93; RESP 17–32; TEMP 36–36.7; O2SAT 93–98
[2019-09-09] MEDS: VANCOMYCIN ORAL 125 MG/2.5 ML SYRUP PO ×5 (00:17→23:34)
[2019-09-09 05:36] LABS: Glucose Point of Care 186 (65-105)
[2019-09-09 05:45] LABS: Hematocrit 31.7 % (37.0-47.0); Hemoglobin 9.1 g/dL (12.0-15.0); Mean Corpuscular HGB Conc 28.7 g/dl (32-36); Mean Corpuscular Hemoglobin 27.9 pg (26-34); Mean Corpuscular Volume 97.2 fl (80-100); Platelet Count Result 253 k/mm3 (150-375); Red Blood Count 3.26 M/mm3 (4.2-5.4); Red Cell Distribution Width 14.9 % (11.5-14.5); White Blood Count 6.4 K/mm3 (4.5-10.0)
[2019-09-09 05:46] LABS: Alanine Aminotransferase 17 U/L (4-35); Albumin Level 2.9 g/dL (3.5-5.1); Alkaline Phosphatase 86 U/L (38-126); Aspartate Amino Transferase 15 U/L (14-36); Bilirubin,Total 0.3 mg/dL (0.2-1.3); Blood Urea Nitrogen 26 mg/dL (7-17); Calcium 8.5 mg/dL (8.4-10.2); Carbon Dioxide 31 mmol/L (22-30); Chloride 107 mmol/L (98-107); Estimated CRCL calculation 24 ml/min; Estimated Glomerular Filt Rate 20; Glucose 155 mg/dL (65-105); Magnesium 1.9 mg/dL (1.6-2.3); Potassium 4.3 mmol/L (3.4-5.0); Sodium 143 mmol/L (137-145)
[2019-09-09] MEDS: hydrALAZINE HCL 50 MG TABLET PO ×3 (06:00→21:02)
[2019-09-09] MEDS: ALPRAZOLAM 0.5 MG TABLET PO ×2 (08:23→12:36)
[2019-09-09] MEDS: ENOXAPARIN 30 MG/0.3 ML SYRINGE SUB-Q (08:24)
[2019-09-09] MEDS: FAMOTIDINE 20 MG/2 ML VIAL IV PUSH ×2 (08:24→21:01)
[2019-09-09] MEDS: METOPROLOL TARTRATE 50 MG TAB 100 MG PO ×2 (08:24→21:02)
[2019-09-09] MEDS: BUMETANIDE 1 MG TABLET PO ×2 (08:25→16:33)
[2019-09-09] MEDS: ACIDOPHILUS/BULGARICUS CHEWABLE TABLET 1 TABLET PO ×4 (08:25→21:01)
[2019-09-09] MEDS: SIMVASTATIN 20 MG TABLET 40 MG PO (08:25)
[2019-09-09] MEDS: FERROUS SULFATE 324 MG TABLET PO (08:25)
[2019-09-09] MEDS: lisinopriL 10 MG TABLET PO (08:25)
[2019-09-09] MEDS: ASPIRIN 81 MG ENTERIC TABLET PO (08:25)
[2019-09-09] MEDS: AMLODIPINE BESYLATE 5 MG TABLET PO (08:26)
[2019-09-09] MEDS: COLLAGENASE OINT 30 GM TUBE 1 APPLIC TOPICAL (08:26)
[2019-09-09] MEDS: TOLNAFTATE 1% POWDER 45 GM BTL 1 APPLIC TOPICAL ×2 (08:26→21:02)
[2019-09-09 09:08] LABS: Glucose Point of Care 155 (65-105)
--- NOTE | 2019-09-09 10:32 | PM.IMPN ---
Progress Note: A&P Assessment and Plan (1) C. difficile colitis: Code(s): A04.72 - Enterocolitis due to Clostridium difficile, not specified as recurrent Status: Acute Assessment and Plan: Colitis has been improving. Remains oral vancomycin to be completed on 09/11/2019 after 10 day course. Will continue probiotic and banatrol. WBC is normal. Continue isolation. (2) Respiratory failure: Qualifiers: Chronicity: acute on chronic Respiratory failure complication: unspecified whether with hypoxia or hypercapnia Qualified Code(s): J96.20 - Acute and chronic respiratory failure, unspecified whether with hypoxia or hypercapnia Code(s): J96.90 - Respiratory failure, unspecified, unspecified whether with hypoxia or hypercapnia Status: Acute Assessment and Plan: Pulmonology consulted and appreciate input. Most likely multifactorial. Patient does have pulmonary hypertension, diastolic dysfunction and probable untreated/undiagnosed sleep apnea. Will continue BiPAP with naps and at night. Continue oxygen during the day. Will give dose IV diuretic today. Continue oral diuretic. Will monitor. (3) Diastolic dysfunction: Code(s): I51.89 - Other ill-defined heart diseases Status: Acute Assessment and Plan: Known diastolic dysfunction. Will continue diuretics. IV Bumex as needed. On scheduled oral Bumex. (4) Suspected sleep apnea: Code(s): R29.818 - Other symptoms and signs involving the nervous system Status: Acute Assessment and Plan: Suspected sleep apnea given all of her findings. Continuing BiPAP as noted above. (5) UTI (urinary tract infection): Qualifiers: Hematuria presence: without hematuria Urinary tract infection type: site unspecified Qualified Code(s): N39.0 - Urinary tract infection, site not specified Code(s): N39.0 - Urinary tract infection, site not specified Status: Acute Assessment and Plan: Urine culture with Citrobacter freundii. Has completed 5 day course of IV ceftriaxone which is now discontinued. Mendez catheter remains in place. Will need to do voiding trial soon. (6) Chronic kidney disease, stage IV (severe): Code(s): N18.4 - Chronic kidney disease, stage 4 (severe) Status: Chronic Assessment and Plan: Nephrology consulted and appreciate input. Creatinine 2.40. Creatinine has remained in this range and is most likely her current baseline. Will continue to monitor with diuretics. Has not significantly changed with diuretic use. (7) HTN (hypertension): Qualifiers: Hypertension type: essential hypertension Qualified Code(s): I10 - Essential (primary) hypertension Code(s): I10 - Essential (primary) hypertension Status: Chronic Assessment and Plan: Blood pressure reviewed on 09/09/2019. Continues to remain elevated. Amlodipine added today. Remains on metoprolol, diltiazem and lisinopril. Will continue to monitor. Adjust treatment as needed. (8) Diabetes mellitus: Qualifiers: Chronic kidney disease stage: stage 4 (severe) Diabetes mellitus complication detail: with chronic kidney disease Diabetes mellitus complication status: with kidney complications Diabetes mellitus watermelon inspector insulin use: with watermelon inspector use Diabetes mellitus type: type 2 Qualified Code(s): E11.22 - Type 2 diabetes mellitus with diabetic chronic kidney disease; N18.4 - Chronic kidney disease, stage 4 (severe); Z79.4 - watermelon inspector (current) use of insulin Code(s): E11.9 - Type 2 diabetes mellitus without complications Status: Chronic Assessment and Plan: Hemoglobin A1c 6.1. On Humalog 75/25 at home. Presently on low-dose Lantus. Glucose reviewed on 09/09/2019 and stable. Will continue to monitor. Sliding scale insulin available as needed. (9) Heel ulcer: Qualifiers: Laterality: right Non-pressure ulcer stage: tavares
[2019-09-09 12:08] LABS: Glucose Point of Care 153 (65-105)
--- NOTE | 2019-09-09 12:25 | PM.PNPUL ---
Progress Note: A&P Assessment and Plan (1) Suspected sleep apnea: Code(s): R29.818 - Other symptoms and signs involving the nervous system Status: Acute Assessment and Plan: - needs outpatient sleep study to confirm and titrate CPAP therapy (2) Respiratory failure: Qualifiers: Chronicity: unspecified Respiratory failure complication: unspecified whether with hypoxia or hypercapnia Qualified Code(s): J96.90 - Respiratory failure, unspecified, unspecified whether with hypoxia or hypercapnia Code(s): J96.90 - Respiratory failure, unspecified, unspecified whether with hypoxia or hypercapnia Status: Acute (3) Diastolic dysfunction: Code(s): I51.89 - Other ill-defined heart diseases Status: Acute Assessment and Plan: complains of dyspnea this morning. Last CXR from 09/06 still showed bilateral pleural effusions and pulmonary vascular congestion - Will repeat portable CXR today - continue diruetics as currently ordered Time Spent With Patient Time with patient: 15 - 25 minutes Subjective Date/time seen: 09/09/19 12:25 Interval history: 69 y/o female admitted with acute hypoxemic and hypercapnic respiratory failure due to diastolic CHF. She now has C.diff colotis and Citrobacter in urine. She was nauseous today when I saw her and was complaining of some dyspnea earlier but no cough. She is on diuretics for CHF and LE edema Review of Systems Review of Systems: All systems reviewed & are unremarkable except as noted in HPI and below Exam Const: Other: Nausesous this morning HENMT: Mouth: Yes moist mucous membranes Neck: Neck: supple and no JVD Resp: Auscultation: no crackles, no rhonchi, no wheezes and diminished lung sounds Cardio: Rate: regular rate Rhythm: regular rhythm Neuro: Cognition (Neuro): normal cognition Extrem: General: edema and pedal edema Objective Data Vital Signs Vital Signs: Vital Signs - 24 hr 09/08/19 14:10 09/08/19 16:00 09/08/19 20:30 Temperature 36.4 C L Pulse Rate 53 L 52 L 61 Respiratory Rate 26 H 20 Blood Pressure 153/57 H Pulse Oximetry 97 95 09/08/19 21:38 09/08/19 22:57 09/09/19 03:00 Temperature 36.7 C Pulse Rate 61 61 66 Respiratory Rate 22 H 22 H 20 Blood Pressure 196/51 H Pulse Oximetry 95 98 98 09/09/19 06:00 09/09/19 08:24 09/09/19 08:53 Temperature 36.7 C Pulse Rate 66 66 54 L Respiratory Rate 20 32 H Blood Pressure 178/52 H Pulse Oximetry 96 93 09/09/19 08:58 Temperature 36.0 C L Pulse Rate 93 Respiratory Rate 28 H Blood Pressure 165/66 H Pulse Oximetry 93 Intake/Output Intake/Output: Intake & Output 09/06/19 09/07/19 09/08/19 09/09/19 23:59 23:59 23:59 23:59 Intake Total 2310 1050 1450 420 Output Total 2300 650 1100 550 Balance 10 400 350 -130 Meds/Results Medications: Active Medications Generic Name Dose Route Start Last Admin Trade Name Freq PRN Reason Stop Dose Admin Acetaminophen 650 mg 09/02/19 09:15 09/08/19 21:26 Tylenol Tablet PO 650 mg Q4H PRN Administration Abdominal Cramping, Pain 1-3 Alprazolam 0.5 mg 09/06/19 09:00 09/09/19 08:23 Xanax PO 0.5 mg TID DEJON Administration Amlodipine Besylate 5 mg 09/09/19 09:00 09/09/19 08:26 Norvasc PO 5 mg QAM DEJON Administration Aspirin 81 mg 09/01/19 09:00 09/09/19 08:25 Aspirin Ec PO 81 mg DAILY DEJON Administration Benzocaine 1 lozenge 09/02/19 09:15 Chloraseptic Lozenge PO PRN PRN Sore Throat Bumetanide 1 mg 09/08/19 17:00 09/09/19 08:25 Bumex Po PO 1 mg BID DEJON Administration Collagenase 1 applic 09/01/19 09:00 09/09/19 08:26 Santyl Oint TOPICAL 1 applic DAILY DEJON Administration Dextrose 12.5 gm 09/01/19 04:57 Dextrose 50% Syringe IV PUSH PRN PRN Hypoglycemia Protocol Diltiazem HCl 360 mg 09/03/19 09:00 09/09/19 08:25 Cardizem Cd PO 360 mg QAM DEJON Administration Enoxap
--- NOTE | 2019-09-09 12:53 | PCOTNOTE ---
Attempted to see patient for skilled OT, however after entering room, patient observed to be on BiPap and declined to work with MONROY by shaking her head no. Patient not seen for OT.
--- NOTE | 2019-09-09 13:00 | PCPTNOTE ---
The PT treatment was unable to be completed today due to patient refusal. Will continue per Plan of Care frequency and duration.
[2019-09-09] MEDS: BUMETANIDE INJ 1 MG/4 ML VIAL IV PUSH (14:42)
--- NOTE | 2019-09-09 16:02 | P.PNNP_ITS ---
Progress Note: A&P Assessment and Plan (1) JESSICA (acute kidney injury): Code(s): N17.9 - Acute kidney failure, unspecified Status: Acute Assessment and Plan: * presumably due to acute illness, IV diuretics, pre-renal factors (from diarrhea), and infection (C.diff + Citrobacter UTI) * creatinine is the same today. * continue supportive therapy (2) Chronic kidney disease, stage IV (severe): Code(s): N18.4 - Chronic kidney disease, stage 4 (severe) Status: Chronic Assessment and Plan: * baseline creatinine ~ 1.8 - 2.2mg/dl * etiology due to hypertension, diabetes, and vascular disease * I agree that she may need a higher baseline creatinine to be out of volume overload. (3) Acute respiratory failure with hypoxia: Code(s): J96.01 - Acute respiratory failure with hypoxia Status: Acute Assessment and Plan: * pneumonia versus pulmonary edema? * no wbc and no fevers. * echo shows moderate pulmonary hypertension. * evidence to date would argue more in favor of pulmonary edema * usually pulmonary hypertension doens't cause pulmonary edema. maybe kidney issue is worse than suspected. her fluid is diluting the creatinine, perhaps making her kidneys look better than they really are. * continue diuretics. we need some fluid off regardless of the cause. (4) Colitis: Code(s): K52.9 - Noninfective gastroenteritis and colitis, unspecified Status: Acute Assessment and Plan: * positive for C. diff colitis * stools slowing down and more formed * continue current therapy (5) UTI (urinary tract infection): Qualifiers: Urinary tract infection type: site unspecified Hematuria presence: without hematuria Qualified Code(s): N39.0 - Urinary tract infection, site not specified Code(s): N39.0 - Urinary tract infection, site not specified Status: Acute Assessment and Plan: * urine culture with Citrobacter * finished course of antibiotics. (6) HTN (hypertension): Qualifiers: Hypertension type: essential hypertension Qualified Code(s): I10 - Essential (primary) hypertension Code(s): I10 - Essential (primary) hypertension Status: Chronic Assessment and Plan: * somewhat better but still elevated * titrate hydralazine * may need another agent/medication -- started on lisinopril * bp a bit lower today. (7) Heel ulcer: Qualifiers: Laterality: right Non-pressure ulcer stage: limited to breakdown of skin Qualified Code(s): L97.411 - Non-pressure chronic ulcer of right heel and midfoot limited to breakdown of skin Code(s): L97.409 - Non-pressure chronic ulcer of unspecified heel and midfoot with unspecified severity Status: Acute Assessment and Plan: * no apparent active infection * continue local wound care Additional Plan Subjective Date/time seen: 09/09/19 16:02 Interval history: pt is sob if she doesn't have the bipap on. no cp. making some urine. Review of Systems Cardiovascular: Cardiovascular: Reports no additional cardiovascular complaints Respiratory: Respiratory: Reports no additional respiratory complaints Gastrointestinal: Gastrointestinal: Reports no additional gastrointestinal complaints Genitourinary: Genitourinary: Reports no additional female genitourinary complaints Exam Narrative: Exam Narrative: General: WD/WN female in NAD Heart: normal S
--- NOTE | 2019-09-09 16:02 | PM.PNNEP ---
Progress Note: A&P Assessment and Plan (1) JESSICA (acute kidney injury): Code(s): N17.9 - Acute kidney failure, unspecified Status: Acute Assessment and Plan: presumably due to acute illness, IV diuretics, pre-renal factors (from diarrhea), and infection (C.diff + Citrobacter UTI) creatinine is the same today. continue supportive therapy (2) Chronic kidney disease, stage IV (severe): Code(s): N18.4 - Chronic kidney disease, stage 4 (severe) Status: Chronic Assessment and Plan: baseline creatinine ~ 1.8 - 2.2mg/dl etiology due to hypertension, diabetes, and vascular disease I agree that she may need a higher baseline creatinine to be out of volume overload. (3) Acute respiratory failure with hypoxia: Code(s): J96.01 - Acute respiratory failure with hypoxia Status: Acute Assessment and Plan: pneumonia versus pulmonary edema? no wbc and no fevers. echo shows moderate pulmonary hypertension. evidence to date would argue more in favor of pulmonary edema usually pulmonary hypertension doens't cause pulmonary edema. maybe kidney issue is worse than suspected. her fluid is diluting the creatinine, perhaps making her kidneys look better than they really are. continue diuretics. we need some fluid off regardless of the cause. (4) Colitis: Code(s): K52.9 - Noninfective gastroenteritis and colitis, unspecified Status: Acute Assessment and Plan: positive for C. diff colitis stools slowing down and more formed continue current therapy (5) UTI (urinary tract infection): Qualifiers: Urinary tract infection type: site unspecified Hematuria presence: without hematuria Qualified Code(s): N39.0 - Urinary tract infection, site not specified Code(s): N39.0 - Urinary tract infection, site not specified Status: Acute Assessment and Plan: urine culture with Citrobacter finished course of antibiotics. (6) HTN (hypertension): Qualifiers: Hypertension type: essential hypertension Qualified Code(s): I10 - Essential (primary) hypertension Code(s): I10 - Essential (primary) hypertension Status: Chronic Assessment and Plan: somewhat better but still elevated titrate hydralazine may need another agent/medication -- started on lisinopril bp a bit lower today. (7) Heel ulcer: Qualifiers: Laterality: right Non-pressure ulcer stage: limited to breakdown of skin Qualified Code(s): L97.411 - Non-pressure chronic ulcer of right heel and midfoot limited to breakdown of skin Code(s): L97.409 - Non-pressure chronic ulcer of unspecified heel and midfoot with unspecified severity Status: Acute Assessment and Plan: no apparent active infection continue local wound care Additional Plan Subjective Date/time seen: 09/09/19 16:02 Interval history: pt is sob if she doesn't have the bipap on. no cp. making some urine. Review of Systems Cardiovascular: Cardiovascular: Reports no additional cardiovascular complaints Respiratory: Respiratory: Reports no additional respiratory complaints Gastrointestinal: Gastrointestinal: Reports no additional gastrointestinal complaints Genitourinary: Genitourinary: Reports no additional female genitourinary complaints Exam Narrative: Exam Narrative: General: WD/WN female in NAD Heart: normal S1 and S2; no rub or gallop Lungs: coarse breath sounds; decreased at bases Abdomen: BS+ nontender Extremities: 1+ edema Skin: chronic venous stasis changes noted Objective Data Vital Signs Vital Signs: Vital Signs - 24 hr 09/08/19 20:30 09/08/19 21:38 09/08/19 22:57 Temperature 36.7 C Pulse Rate 61 61 61 Respiratory Rate 22 H 22 H Blood Pressure 196/51 H Pulse Oximetry 95 98 09/09/19 03:00 09/09/19 06:00 09/09/19 08:24 Temperature 36.7 C Pulse Rate 66 66 66 Respiratory Rate 20 20 B
[2019-09-09 16:43] LABS: Glucose Point of Care 143 (65-105)
[2019-09-09] MEDS: metOLazone 5 MG TABLET PO (17:43)
[2019-09-09] MEDS: INSULIN GLARGINE (*BKC) 100 UNITS/ML 10 UNITS SUB-Q (21:03)
[2019-09-09 21:18] LABS: Glucose Point of Care 165 (65-105)
[2019-09-10] VITALS (11 sets, daily range): BP systolic 117–178; BP diastolic 40–68; PULSE 53–78; RESP 18–24; TEMP 36.4–36.9; O2SAT 90–95
[2019-09-10] MEDS: VANCOMYCIN ORAL 125 MG/2.5 ML SYRUP PO ×4 (05:16→23:59)
[2019-09-10] MEDS: ONDANSETRON INJ 4 MG/2 ML VIAL IV PUSH (05:16)
[2019-09-10] MEDS: hydrALAZINE HCL 50 MG TABLET PO ×3 (05:16→20:58)
[2019-09-10 05:53] LABS: Hematocrit 31.8 % (37.0-47.0); Hemoglobin 9.3 g/dL (12.0-15.0); Mean Corpuscular HGB Conc 29.2 g/dl (32-36); Mean Corpuscular Hemoglobin 28.3 pg (26-34); Mean Corpuscular Volume 96.7 fl (80-100); Mean Platelet Volume 9.9 fl (7.4-10.4); Platelet Count Result 239 k/mm3 (150-375); Red Blood Count 3.29 M/mm3 (4.2-5.4); Red Cell Distribution Width 14.9 % (11.5-14.5)
[2019-09-10 06:06] LABS: Blood Urea Nitrogen 27 mg/dL (7-17); Calcium 8.8 mg/dL (8.4-10.2); Carbon Dioxide 33 mmol/L (22-30); Chloride 108 mmol/L (98-107); Estimated CRCL calculation 23 ml/min; Estimated Glomerular Filt Rate 19; Glucose 144 mg/dL (65-105); Magnesium 1.9 mg/dL (1.6-2.3); Phosphorus 3.8 mg/dL (2.5-4.5); Potassium 4.5 mmol/L (3.4-5.0); Sodium 141 mmol/L (137-145)
[2019-09-10] MEDS: METOPROLOL TARTRATE 50 MG TAB 100 MG PO ×2 (09:30→20:58)
[2019-09-10] MEDS: SIMVASTATIN 20 MG TABLET 40 MG PO (09:30)
[2019-09-10] MEDS: ENOXAPARIN 30 MG/0.3 ML SYRINGE SUB-Q (09:30)
[2019-09-10] MEDS: FAMOTIDINE 20 MG/2 ML VIAL IV PUSH ×2 (09:30→20:58)
[2019-09-10] MEDS: AMLODIPINE BESYLATE 5 MG TABLET PO ×2 (09:32→17:29)
[2019-09-10] MEDS: ASPIRIN 81 MG ENTERIC TABLET PO (09:32)
[2019-09-10] MEDS: BUMETANIDE 1 MG TABLET 2 MG PO ×2 (09:32→17:28)
[2019-09-10] MEDS: FERROUS SULFATE 324 MG TABLET PO (09:32)
[2019-09-10] MEDS: ACIDOPHILUS/BULGARICUS CHEWABLE TABLET 1 TABLET PO ×4 (09:32→20:58)
[2019-09-10] MEDS: lisinopriL 10 MG TABLET PO (09:32)
[2019-09-10] MEDS: COLLAGENASE OINT 30 GM TUBE 1 APPLIC TOPICAL (09:33)
[2019-09-10] MEDS: TOLNAFTATE 1% POWDER 45 GM BTL 1 APPLIC TOPICAL ×2 (09:33→21:01)
[2019-09-10 09:41] LABS: Glucose Point of Care 155 (65-105)
--- NOTE | 2019-09-10 10:38 | PM.IMPN ---
Progress Note: A&P Assessment and Plan (1) C. difficile colitis: Code(s): A04.72 - Enterocolitis due to Clostridium difficile, not specified as recurrent Status: Acute Assessment and Plan: Colitis continues to improve. Remains oral vancomycin to be completed on 09/11/2019 after 10 day course. Will continue probiotic and banatrol. WBC remains normal. Continue isolation. Continue PT/OT. Anticipate discharge to SNF once stable. (2) Respiratory failure: Qualifiers: Chronicity: acute on chronic Respiratory failure complication: unspecified whether with hypoxia or hypercapnia Qualified Code(s): J96.20 - Acute and chronic respiratory failure, unspecified whether with hypoxia or hypercapnia Code(s): J96.90 - Respiratory failure, unspecified, unspecified whether with hypoxia or hypercapnia Status: Acute Assessment and Plan: Pulmonology consulted and appreciate input. Most likely multifactorial. Patient does have pulmonary hypertension, diastolic dysfunction and probable untreated/undiagnosed sleep apnea. Will continue BiPAP with naps and at night. Continue oxygen during the day currently at 2 L. Continue diuresis. Per family, some of patient's visitors this patient weekend have now tested positive for Influenza B. Will monitor. Test for influenza if any change in status or if family requests. (3) Diastolic dysfunction: Code(s): I51.89 - Other ill-defined heart diseases Status: Acute Assessment and Plan: Known diastolic dysfunction. Will continue oral Bumex. IV Bumex as needed. (4) Suspected sleep apnea: Code(s): R29.818 - Other symptoms and signs involving the nervous system Status: Acute Assessment and Plan: Suspected sleep apnea given all of her findings. Continuing BiPAP as noted above. Will need eventual formal sleep study. (5) Chronic kidney disease, stage IV (severe): Code(s): N18.4 - Chronic kidney disease, stage 4 (severe) Status: Chronic Assessment and Plan: Nephrology consulted and appreciate input. Creatinine stable at 2.50 today. Creatinine has remained in this range and is most likely her current baseline. Will continue to monitor with diuretics. (6) UTI (urinary tract infection): Qualifiers: Hematuria presence: without hematuria Urinary tract infection type: site unspecified Qualified Code(s): N39.0 - Urinary tract infection, site not specified Code(s): N39.0 - Urinary tract infection, site not specified Status: Acute Assessment and Plan: Urine culture with Citrobacter freundii. Has completed 5 day course of IV ceftriaxone which is now discontinued. Mendez catheter remains in place. Will need to do voiding trial soon. (7) HTN (hypertension): Qualifiers: Hypertension type: essential hypertension Qualified Code(s): I10 - Essential (primary) hypertension Code(s): I10 - Essential (primary) hypertension Status: Chronic Assessment and Plan: Blood pressure reviewed on 09/10/2019. Blood pressure variable but now with some normal readings. Will continue to monitor on amlodipine, metoprolol, diltiazem and lisinopril. Will continue to monitor. Adjust treatment as needed. (8) Diabetes mellitus: Qualifiers: Chronic kidney disease stage: stage 4 (severe) Diabetes mellitus complication detail: with chronic kidney disease Diabetes mellitus complication status: with kidney complications Diabetes mellitus [facility] insulin use: with intermodal dispatcher use Diabetes mellitus type: type 2 Qualified Code(s): E11.22 - Type 2 diabetes mellitus with diabetic chronic kidney disease; N18.4 - Chronic kidney disease, stage 4 (severe); Z79.4 - terminal carman (current) use of insulin Code(s): E11.9 - Type 2 diabetes mellitus without complications Status: Chronic Assessment and Plan: Hemoglobin A1c 6.1. On Humalog 75/25 at home. Presently on low-do
[2019-09-10 11:58] LABS: Glucose Point of Care 189 (65-105)
--- NOTE | 2019-09-10 14:53 | PM.PNPUL ---
Progress Note: A&P Assessment and Plan (1) Suspected sleep apnea: Code(s): R29.818 - Other symptoms and signs involving the nervous system Status: Acute Assessment and Plan: - needs outpatient sleep study to confirm and titrate CPAP therapy - continue current BIPAP settings, she seems to be tolerating it well. (2) Respiratory failure: Qualifiers: Chronicity: acute on chronic Respiratory failure complication: unspecified whether with hypoxia or hypercapnia Qualified Code(s): J96.20 - Acute and chronic respiratory failure, unspecified whether with hypoxia or hypercapnia Code(s): J96.90 - Respiratory failure, unspecified, unspecified whether with hypoxia or hypercapnia Status: Acute (3) Diastolic dysfunction: Code(s): I51.89 - Other ill-defined heart diseases Status: Acute Assessment and Plan: CXR from 09/08 still showed pulmonary edema and pleural effusions. - patient appears to be still in positive fluid balance since admission. - continue diuretics Time Spent With Patient Time with patient: 15 - 25 minutes Subjective Date/time seen: 09/10/19 14:53 Interval history: Feeling better today. Resting comfortably in chair. Dyspnea and diarrhea have improved. Review of Systems Review of Systems: All systems reviewed & are unremarkable except as noted in HPI and below Exam Const: General: comfortable and no acute distress HENMT: Mouth: Yes Abnormal oral and palatal mucosa present Neck: Neck: supple and no JVD Resp: Auscultation: clear to auscultation bilaterally, no crackles, no rhonchi, no wheezes and diminished lung sounds Cardio: Rate: regular rate Rhythm: regular rhythm Heart sounds: no murmurs GI: Auscultation: normal bowel sounds Skin: General skin exam: normal color and no rashes or lesions noted Neuro: Speech: normal speech Extrem: General: normal to inspection, edema and pedal edema Objective Data Vital Signs Vital Signs: Vital Signs - 24 hr 09/09/19 17:54 09/09/19 19:32 09/09/19 20:10 Temperature Pulse Rate 68 Respiratory Rate 17 Blood Pressure Pulse Oximetry 94 94 94 09/09/19 21:02 09/10/19 00:00 09/10/19 01:19 Temperature 36.5 C Pulse Rate 62 59 L 62 Respiratory Rate 20 24 H Blood Pressure 178/50 H Pulse Oximetry 95 95 09/10/19 05:59 09/10/19 09:30 09/10/19 11:46 Temperature 36.9 C Pulse Rate 59 L 61 76 Respiratory Rate 20 Blood Pressure 170/68 H 140/52 L Pulse Oximetry 92 09/10/19 14:00 Temperature 36.8 C Pulse Rate 53 L Respiratory Rate 18 Blood Pressure 117/40 L Pulse Oximetry 93 Intake/Output Intake/Output: Intake & Output 09/07/19 09/08/19 09/09/19 09/10/19 23:59 23:59 23:59 23:59 Intake Total 1050 1450 1080 910 Output Total 650 1100 1100 600 Balance 400 350 -20 310 Meds/Results Medications: Active Medications Generic Name Dose Route Start Last Admin Trade Name Freq PRN Reason Stop Dose Admin Acetaminophen 650 mg 09/02/19 09:15 09/08/19 21:26 Tylenol Tablet PO 650 mg Q4H PRN Administration Abdominal Cramping, Pain 1-3 Alprazolam 0.5 mg 09/09/19 17:01 Xanax PO TID PRN Anxiety Amlodipine Besylate 5 mg 09/09/19 09:00 09/10/19 09:32 Norvasc PO 5 mg QAM DEJON Administration Aspirin 81 mg 09/01/19 09:00 09/10/19 09:32 Aspirin Ec PO 81 mg DAILY DEJON Administration Benzocaine 1 lozenge 09/02/19 09:15 Chloraseptic Lozenge PO PRN PRN Sore Throat Bumetanide 2 mg 09/10/19 09:00 09/10/19 09:32 Bumex Po PO 2 mg BID DEJON Administration Collagenase 1 applic 09/01/19 09:00 09/10/19 09:33 Santyl Oint TOPICAL 1 applic DAILY DEJON Administration Dextrose 12.5 gm 09/01/19 04:57 Dextrose 50% Syringe IV PUSH PRN PRN Hypoglycemia Protocol Diltiazem HCl 360 mg 09/03/19 09:00 09/10/19 09:30 Cardizem Cd PO 360 mg QAM DEJON Administration Enoxaparin Sod
[2019-09-10 15:58] LABS: Procalcitonin <0.10 ng/mL (<0.10)
--- NOTE | 2019-09-10 16:16 | PCDIET ---
Nutrition Follow-Up Complete: Suboptimal oral intake related to decreased appetite as evidenced by patient reports of eating only a few bites of meals and breakfast tray with minimal intake. Patient to consume 50% of meals or greater + supplements Goal: Goal not met. Continue with current goal. Pt current nutrition is DBCC, 2gm Na + banatrol and ensure compact BID. Nutrition recommendation: Agree Last recorded weight is 113.1 kg (steady from assessment on 09/04) Bowel Motility: diarrhea Labs Reviewed: 09/09 GFR 19, Albumin 3.0, Glucose 144 Meds Noted:Lantus, lactobacillus, fe, lovenox, vanc Additional Notes: Pt with poor intake of 22% over the last several meals. Wt has remained steady. Pt states she likes the Ensure compact and banatrol. 1/2 of pudding/banatrol mix eaten today at lunch. Edu provided on importance of rebuilding good gut health after d/c to prevent relapse of cdiff. Discussed good fiber foods as well as Metamucil or other supplements such as banatrol. We will follow to monitor intake, wt, bms every three days.
--- NOTE | 2019-09-10 16:54 | P.PNNP_ITS ---
Progress Note: A&P Assessment and Plan (1) JESSICA (acute kidney injury): Code(s): N17.9 - Acute kidney failure, unspecified Status: Acute Assessment and Plan: * presumably due to acute illness, IV diuretics, pre-renal factors (from diarrhea), and infection (C.diff + Citrobacter UTI) * creatinine is the same today. * on diuretic. (2) Chronic kidney disease, stage IV (severe): Code(s): N18.4 - Chronic kidney disease, stage 4 (severe) Status: Chronic Assessment and Plan: * baseline creatinine ~ 1.8 - 2.2mg/dl * etiology due to hypertension, diabetes, and vascular disease (3) Acute respiratory failure with hypoxia: Code(s): J96.01 - Acute respiratory failure with hypoxia Status: Acute Assessment and Plan: * trying to diurese. * on higher dose loop diuretics. * u.o. 1100 yesterday. see how it is today. will give daily metolazone (4) Colitis: Code(s): K52.9 - Noninfective gastroenteritis and colitis, unspecified Status: Acute Assessment and Plan: * positive for C. diff colitis * stools slowing down and more formed * continue current therapy (5) UTI (urinary tract infection): Qualifiers: Urinary tract infection type: site unspecified Hematuria presence: without hematuria Qualified Code(s): N39.0 - Urinary tract infection, site not specified Code(s): N39.0 - Urinary tract infection, site not specified Status: Acute Assessment and Plan: * urine culture with Citrobacter * finished course of antibiotics. (6) HTN (hypertension): Qualifiers: Hypertension type: essential hypertension Qualified Code(s): I10 - Essential (primary) hypertension Code(s): I10 - Essential (primary) hypertension Status: Chronic Assessment and Plan: * bp still high. * on metoprolol, diltiazem, amlodipine, and lisinopril will stop dilt. increase amlodipine (7) Heel ulcer: Qualifiers: Laterality: right Non-pressure ulcer stage: limited to breakdown of skin Qualified Code(s): L97.411 - Non-pressure chronic ulcer of right heel and midfoot limited to breakdown of skin Code(s): L97.409 - Non-pressure chronic ulcer of unspecified heel and midfoot with unspecified severity Status: Acute Assessment and Plan: * no apparent active infection * continue local wound care Additional Plan Subjective Date/time seen: 09/10/19 16:54 Interval history: feels about the same no cp or sob. Review of Systems Cardiovascular: Cardiovascular: Reports no additional cardiovascular complaints Respiratory: Respiratory: Reports no additional respiratory complaints Gastrointestinal: Gastrointestinal: Reports no additional gastrointestinal complaints Genitourinary: Genitourinary: Reports no additional female genitourinary complaints Exam Narrative: Exam Narrative: General: WD/WN female in NAD Heart: normal S1 and S2; no rub or gallop Lungs: coarse breath sounds; decreased at bases Abdomen: BS+ nontender Extremities: 1+ edema and no cyanosis. Skin: chronic venous stasis changes noted Objective Data Vital Signs Vital Signs: Vital Signs - 24 hr 09/09/19 17:54 09/09/19 19:32 09/09/19 20:10 Temperature Pulse Rate 68 Respiratory Rate 17 Blood Pressure Pulse Oximetry 9
--- NOTE | 2019-09-10 16:54 | PM.PNNEP ---
Progress Note: A&P Assessment and Plan (1) JESSICA (acute kidney injury): Code(s): N17.9 - Acute kidney failure, unspecified Status: Acute Assessment and Plan: presumably due to acute illness, IV diuretics, pre-renal factors (from diarrhea), and infection (C.diff + Citrobacter UTI) creatinine is the same today. on diuretic. (2) Chronic kidney disease, stage IV (severe): Code(s): N18.4 - Chronic kidney disease, stage 4 (severe) Status: Chronic Assessment and Plan: baseline creatinine ~ 1.8 - 2.2mg/dl etiology due to hypertension, diabetes, and vascular disease (3) Acute respiratory failure with hypoxia: Code(s): J96.01 - Acute respiratory failure with hypoxia Status: Acute Assessment and Plan: trying to diurese. on higher dose loop diuretics. u.o. 1100 yesterday. see how it is today. will give daily metolazone (4) Colitis: Code(s): K52.9 - Noninfective gastroenteritis and colitis, unspecified Status: Acute Assessment and Plan: positive for C. diff colitis stools slowing down and more formed continue current therapy (5) UTI (urinary tract infection): Qualifiers: Urinary tract infection type: site unspecified Hematuria presence: without hematuria Qualified Code(s): N39.0 - Urinary tract infection, site not specified Code(s): N39.0 - Urinary tract infection, site not specified Status: Acute Assessment and Plan: urine culture with Citrobacter finished course of antibiotics. (6) HTN (hypertension): Qualifiers: Hypertension type: essential hypertension Qualified Code(s): I10 - Essential (primary) hypertension Code(s): I10 - Essential (primary) hypertension Status: Chronic Assessment and Plan: bp still high. on metoprolol, diltiazem, amlodipine, and lisinopril will stop dilt. increase amlodipine (7) Heel ulcer: Qualifiers: Laterality: right Non-pressure ulcer stage: limited to breakdown of skin Qualified Code(s): L97.411 - Non-pressure chronic ulcer of right heel and midfoot limited to breakdown of skin Code(s): L97.409 - Non-pressure chronic ulcer of unspecified heel and midfoot with unspecified severity Status: Acute Assessment and Plan: no apparent active infection continue local wound care Additional Plan Subjective Date/time seen: 09/10/19 16:54 Interval history: feels about the same no cp or sob. Review of Systems Cardiovascular: Cardiovascular: Reports no additional cardiovascular complaints Respiratory: Respiratory: Reports no additional respiratory complaints Gastrointestinal: Gastrointestinal: Reports no additional gastrointestinal complaints Genitourinary: Genitourinary: Reports no additional female genitourinary complaints Exam Narrative: Exam Narrative: General: WD/WN female in NAD Heart: normal S1 and S2; no rub or gallop Lungs: coarse breath sounds; decreased at bases Abdomen: BS+ nontender Extremities: 1+ edema and no cyanosis. Skin: chronic venous stasis changes noted Objective Data Vital Signs Vital Signs: Vital Signs - 24 hr 09/09/19 17:54 09/09/19 19:32 09/09/19 20:10 Temperature Pulse Rate 68 Respiratory Rate 17 Blood Pressure Pulse Oximetry 94 94 94 09/09/19 21:02 09/10/19 00:00 09/10/19 01:19 Temperature 36.5 C Pulse Rate 62 59 L 62 Respiratory Rate 20 24 H Blood Pressure 178/50 H Pulse Oximetry 95 95 09/10/19 05:59 09/10/19 09:30 09/10/19 11:46 Temperature 36.9 C Pulse Rate 59 L 61 76 Respiratory Rate 20 Blood Pressure 170/68 H 140/52 L Pulse Oximetry 92 09/10/19 14:00 Temperature 36.8 C Pulse Rate 53 L Respiratory Rate 18 Blood Pressure 117/40 L Pulse Oximetry 93 Intake/Output Intake/Output: Intake & Output 09/07/19 09/08/19 09/09/19 09/10/19 23:59 23:59 23:59 23:59 Intake Total 1050 1450 1080 910
[2019-09-10] MEDS: INSULIN ASPART (*BKC) 100 UNITS/ML SUB-Q (17:26)
[2019-09-10] MEDS: metOLazone 5 MG TABLET PO (17:28)
[2019-09-10 17:38] LABS: Glucose Point of Care 205 (65-105)
[2019-09-10 20:08] LABS: Glucose Point of Care 188 (65-105)
[2019-09-10] MEDS: INSULIN GLARGINE (*BKC) 100 UNITS/ML 10 UNITS SUB-Q (21:00)
[2019-09-11] VITALS (13 sets, daily range): BP systolic 118–143; BP diastolic 43–62; PULSE 52–74; RESP 16–22; TEMP 36.1–36.3; O2SAT 90–94; BMI 10.0
[2019-09-11 05:23] LABS: Albumin Level 2.8 g/dL (3.5-5.1); Blood Urea Nitrogen 31 mg/dL (7-17); Calcium 8.4 mg/dL (8.4-10.2); Carbon Dioxide 33 mmol/L (22-30); Chloride 106 mmol/L (98-107); Estimated CRCL calculation 17 ml/min; Estimated Glomerular Filt Rate 13; Glucose 151 mg/dL (65-105); Phosphorus 5.6 mg/dL (2.5-4.5); Sodium 138 mmol/L (137-145)
[2019-09-11 05:25] LABS: Blood Urea Nitrogen 30 mg/dL (7-17); Calcium 8.4 mg/dL (8.4-10.2); Carbon Dioxide 32 mmol/L (22-30); Chloride 105 mmol/L (98-107); Estimated CRCL calculation 17 ml/min; Estimated Glomerular Filt Rate 13; Glucose 151 mg/dL (65-105); Sodium 139 mmol/L (137-145)
[2019-09-11] MEDS: hydrALAZINE HCL 50 MG TABLET PO ×3 (05:39→20:28)
[2019-09-11 07:54] LABS: Glucose Point of Care 129 (65-105)
[2019-09-11] MEDS: COLLAGENASE OINT 30 GM TUBE 1 APPLIC TOPICAL (08:33)
[2019-09-11] MEDS: TOLNAFTATE 1% POWDER 45 GM BTL 1 APPLIC TOPICAL ×2 (08:33→20:28)
[2019-09-11] MEDS: SIMVASTATIN 20 MG TABLET 40 MG PO (08:34)
[2019-09-11] MEDS: ASPIRIN 81 MG ENTERIC TABLET PO (08:34)
[2019-09-11] MEDS: FAMOTIDINE 20 MG/2 ML VIAL IV PUSH ×2 (08:34→20:28)
[2019-09-11] MEDS: ENOXAPARIN 30 MG/0.3 ML SYRINGE SUB-Q (08:34)
[2019-09-11] MEDS: FERROUS SULFATE 324 MG TABLET PO (08:34)
[2019-09-11] MEDS: BUMETANIDE 1 MG TABLET 2 MG PO (08:34)
[2019-09-11] MEDS: AMLODIPINE BESYLATE 5 MG TABLET 10 MG PO (08:35)
[2019-09-11] MEDS: metOLazone 5 MG TABLET PO (08:35)
[2019-09-11] MEDS: lisinopriL 10 MG TABLET PO (08:35)
[2019-09-11] MEDS: METOPROLOL TARTRATE 50 MG TAB 100 MG PO ×2 (08:35→20:28)
[2019-09-11] MEDS: ACIDOPHILUS/BULGARICUS CHEWABLE TABLET 1 TABLET PO ×4 (08:35→20:28)
--- NOTE | 2019-09-11 12:23 | PM.IMPN ---
Progress Note: A&P Assessment and Plan (1) C. difficile colitis: Code(s): A04.72 - Enterocolitis due to Clostridium difficile, not specified as recurrent Status: Resolved Assessment and Plan: Now resolved with no further diarrhea. Has now completed a 10 day course of oral vancomycin. WBC remains normal. Is still on isolation. Continue probiotic and banatrol. Continue PT/OT. Plan for discharge to SNF once stable. Updated son by phone regarding patient's current condition. Son does mention he is trying to have healthcare POA paperwork completed. (2) Respiratory failure: Qualifiers: Chronicity: acute on chronic Respiratory failure complication: unspecified whether with hypoxia or hypercapnia Qualified Code(s): J96.20 - Acute and chronic respiratory failure, unspecified whether with hypoxia or hypercapnia Code(s): J96.90 - Respiratory failure, unspecified, unspecified whether with hypoxia or hypercapnia Status: Acute Assessment and Plan: Pulmonology consulted and appreciate input. Most likely multifactorial. Patient does have pulmonary hypertension, diastolic dysfunction and probable untreated/undiagnosed sleep apnea. Will continue BiPAP with naps and at night. Continue oxygen during the day currently at 2 L. Continue diuresis. Per family, some of patient's visitors this patient weekend have now tested positive for Influenza B. Will monitor and only test for influenza if any change in status or if family requests. Will add nebulizer treatments including Pulmozyme today. Will also add guaifenesin. (3) Diastolic dysfunction: Code(s): I51.89 - Other ill-defined heart diseases Status: Acute Assessment and Plan: Known diastolic dysfunction. Echocardiogram with EF 65-70% in addition to the diastolic dysfunction as well as severe pulmonary hypertension. Oral Bumex increased per Nephrology yesterday. Will continue to monitor. (4) Chronic kidney disease, stage IV (severe): Code(s): N18.4 - Chronic kidney disease, stage 4 (severe) Status: Chronic Assessment and Plan: Nephrology consulted and appreciate input. Discussed with Dr. Gonzalez today. Creatinine did bumped to 3.40 today. Is on oral Bumex. Nephrology plans to do 24 hour urine. Will need to watch fluid balance. Possible patient could end up needing dialysis with family aware after my discussion with son today. (5) Suspected sleep apnea: Code(s): R29.818 - Other symptoms and signs involving the nervous system Status: Acute Assessment and Plan: Suspected sleep apnea given all of her findings including severe pulmonary hypertension on echocardiogram. Continuing BiPAP as noted above. Will need eventual formal sleep study. (6) UTI (urinary tract infection): Qualifiers: Hematuria presence: without hematuria Urinary tract infection type: site unspecified Qualified Code(s): N39.0 - Urinary tract infection, site not specified Code(s): N39.0 - Urinary tract infection, site not specified Status: Acute Assessment and Plan: Urine culture with Citrobacter freundii. Has completed 5 day course of IV ceftriaxone which is now discontinued. Mendez catheter remains in place. Will need to do eventual voiding trial but with increasing creatinine today will not remove catheter today. (7) HTN (hypertension): Qualifiers: Hypertension type: essential hypertension Qualified Code(s): I10 - Essential (primary) hypertension Code(s): I10 - Essential (primary) hypertension Status: Chronic Assessment and Plan: Blood pressure reviewed on 09/11/2019. Blood pressure variable but now with some normal readings. Will continue to monitor on amlodipine, metoprolol, diltiazem and lisinopril. Will continue to monitor. Adjust treatment as needed. (8) Diabetes mellitus: Qualifiers: Chronic kidney disease stage: stage 4 (severe) D
[2019-09-11] MEDS: ALPRAZOLAM 0.5 MG TABLET PO (12:38)
[2019-09-11 12:53] LABS: Glucose Point of Care 173 (65-105)
[2019-09-11] MEDS: IPRATROPIUM BR 0.02% INH SOLN 0.5 MG/2.5 ML VIAL INHALATION ×2 (14:29→22:10)
[2019-09-11] MEDS: LEVALBUTEROL NEB 1.25 MG/3 ML 0.63 MG INHALATION ×2 (14:29→22:09)
--- NOTE | 2019-09-11 14:42 | P.PNNP_ITS ---
Progress Note: A&P Assessment and Plan (1) JESSICA (acute kidney injury): Code(s): N17.9 - Acute kidney failure, unspecified Status: Acute Assessment and Plan: * presumably due to acute illness, IV diuretics, pre-renal factors (from diarrhea), and infection (C.diff + Citrobacter UTI) * creatinine is worse today. * on diuretics: Bumex and metolazone p.o.. * Will switch to IV Bumex. * We discussed at length. Her creatinine is rising in spite of positive intake and output with large doses of diuretics. Will keep trying to diurese. If this does not work we may end up needing to do dialysis to get the fluid off. * Her chest x-ray is wet and she is still swollen. * (2) Chronic kidney disease, stage IV (severe): Code(s): N18.4 - Chronic kidney disease, stage 4 (severe) Status: Chronic Assessment and Plan: * baseline creatinine ~ 1.8 - 2.2mg/dl * etiology due to hypertension, diabetes, and vascular disease * Perhaps her kidney function is worse than her estimated GFR let us on. (3) Acute respiratory failure with hypoxia: Code(s): J96.01 - Acute respiratory failure with hypoxia Status: Acute Assessment and Plan: * trying to diurese. * on higher dose loop diuretics. * Increased diuretics. (4) Colitis: Code(s): K52.9 - Noninfective gastroenteritis and colitis, unspecified Status: Acute Assessment and Plan: * positive for C. diff colitis * stools slowing down and more formed * continue current therapy (5) UTI (urinary tract infection): Qualifiers: Urinary tract infection type: site unspecified Hematuria presence: without hematuria Qualified Code(s): N39.0 - Urinary tract infection, site not specified Code(s): N39.0 - Urinary tract infection, site not specified Status: Acute Assessment and Plan: * urine culture with Citrobacter * finished course of antibiotics. (6) HTN (hypertension): Qualifiers: Hypertension type: essential hypertension Qualified Code(s): I10 - Essential (primary) hypertension Code(s): I10 - Essential (primary) hypertension Status: Chronic Assessment and Plan: * bp better. (7) Heel ulcer: Qualifiers: Laterality: right Non-pressure ulcer stage: limited to breakdown of skin Qualified Code(s): L97.411 - Non-pressure chronic ulcer of right heel and midfoot limited to breakdown of skin Code(s): L97.409 - Non-pressure chronic ulcer of unspecified heel and midfoot with unspecified severity Status: Acute Assessment and Plan: * no apparent active infection * continue local wound care Additional Plan Subjective Date/time seen: 09/11/19 14:42 Interval history: feels about the same no cp or sob. She is sitting up in a chair. She is still very swollen. Review of Systems Cardiovascular: Cardiovascular: Reports no additional cardiovascular complaints Respiratory: Respiratory: Reports no additional respiratory complaints Gastrointestinal: Gastrointestinal: Reports no additional gastrointestinal complaints Genitourinary: Genitourinary: Reports no additional female genitourinary complaints Exam Narrative: Exam Narrative: General: WD/WN female in NAD Heart: normal S1 and S2; no rub or gallop Lungs: coarse breath sounds; bilaterally Abdomen: BS+ nontender Extremities: 1+ edema Skin: chronic venous stasis change
--- NOTE | 2019-09-11 14:42 | PM.PNNEP ---
Progress Note: A&P Assessment and Plan (1) JESSICA (acute kidney injury): Code(s): N17.9 - Acute kidney failure, unspecified Status: Acute Assessment and Plan: presumably due to acute illness, IV diuretics, pre-renal factors (from diarrhea), and infection (C.diff + Citrobacter UTI) creatinine is worse today. on diuretics: Bumex and metolazone p.o.. Will switch to IV Bumex. We discussed at length. Her creatinine is rising in spite of positive intake and output with large doses of diuretics. Will keep trying to diurese. If this does not work we may end up needing to do dialysis to get the fluid off. Her chest x-ray is wet and she is still swollen. (2) Chronic kidney disease, stage IV (severe): Code(s): N18.4 - Chronic kidney disease, stage 4 (severe) Status: Chronic Assessment and Plan: baseline creatinine ~ 1.8 - 2.2mg/dl etiology due to hypertension, diabetes, and vascular disease Perhaps her kidney function is worse than her estimated GFR let us on. (3) Acute respiratory failure with hypoxia: Code(s): J96.01 - Acute respiratory failure with hypoxia Status: Acute Assessment and Plan: trying to diurese. on higher dose loop diuretics. Increased diuretics. (4) Colitis: Code(s): K52.9 - Noninfective gastroenteritis and colitis, unspecified Status: Acute Assessment and Plan: positive for C. diff colitis stools slowing down and more formed continue current therapy (5) UTI (urinary tract infection): Qualifiers: Urinary tract infection type: site unspecified Hematuria presence: without hematuria Qualified Code(s): N39.0 - Urinary tract infection, site not specified Code(s): N39.0 - Urinary tract infection, site not specified Status: Acute Assessment and Plan: urine culture with Citrobacter finished course of antibiotics. (6) HTN (hypertension): Qualifiers: Hypertension type: essential hypertension Qualified Code(s): I10 - Essential (primary) hypertension Code(s): I10 - Essential (primary) hypertension Status: Chronic Assessment and Plan: bp better. (7) Heel ulcer: Qualifiers: Laterality: right Non-pressure ulcer stage: limited to breakdown of skin Qualified Code(s): L97.411 - Non-pressure chronic ulcer of right heel and midfoot limited to breakdown of skin Code(s): L97.409 - Non-pressure chronic ulcer of unspecified heel and midfoot with unspecified severity Status: Acute Assessment and Plan: no apparent active infection continue local wound care Additional Plan Subjective Date/time seen: 09/11/19 14:42 Interval history: feels about the same no cp or sob. She is sitting up in a chair. She is still very swollen. Review of Systems Cardiovascular: Cardiovascular: Reports no additional cardiovascular complaints Respiratory: Respiratory: Reports no additional respiratory complaints Gastrointestinal: Gastrointestinal: Reports no additional gastrointestinal complaints Genitourinary: Genitourinary: Reports no additional female genitourinary complaints Exam Narrative: Exam Narrative: General: WD/WN female in NAD Heart: normal S1 and S2; no rub or gallop Lungs: coarse breath sounds; bilaterally Abdomen: BS+ nontender Extremities: 1+ edema Skin: chronic venous stasis changes noted Objective Data Vital Signs Vital Signs: Vital Signs - 24 hr 09/10/19 17:29 09/10/19 19:52 09/10/19 20:58 Temperature Pulse Rate 78 Respiratory Rate Blood Pressure 131/65 Pulse Oximetry 95 09/10/19 21:25 09/10/19 22:00 09/11/19 01:14 Temperature 36.4 C Pulse Rate 74 76 74 Respiratory Rate 20 22 H 16 Blood Pressure 133/50 L Pulse Oximetry 94 90 94 09/11/19 05:52 09/11/19 08:15 09/11/19 08:35 Temperature 36.2 C L Pulse Rate 52 L 59 L Respiratory Rate 20 Blood Pressure
--- NOTE | 2019-09-11 15:19 | PM.PNPUL ---
Progress Note: A&P Assessment and Plan (1) Suspected sleep apnea: Code(s): R29.818 - Other symptoms and signs involving the nervous system Status: Acute Assessment and Plan: - needs outpatient sleep study to confirm and titrate CPAP therapy - continue current BIPAP settings - I've ordered an outpatient sleep study for her in one month time (2) Respiratory failure: Qualifiers: Chronicity: acute on chronic Respiratory failure complication: unspecified whether with hypoxia or hypercapnia Qualified Code(s): J96.20 - Acute and chronic respiratory failure, unspecified whether with hypoxia or hypercapnia Code(s): J96.90 - Respiratory failure, unspecified, unspecified whether with hypoxia or hypercapnia Status: Acute (3) Diastolic dysfunction: Code(s): I51.89 - Other ill-defined heart diseases Status: Acute Assessment and Plan: CXR from 09/08 still showed pulmonary edema and pleural effusions. - patient appears to be still in positive fluid balance since admission. - continue diuretics as ordered. - daily weights - PT/OT Subjective Date/time seen: 09/11/19 15:19 Interval history: Awake and alert. No dyspnea today. diarrhea is resolving. She feels like the pressure and BIPAP mask is not comfortable but she's tolerating it for now. Review of Systems Review of Systems: All systems reviewed & are unremarkable except as noted in HPI and below Exam Const: General: comfortable and no acute distress HENMT: Mouth: Yes Abnormal oral and palatal mucosa present Neck: Neck: supple and no JVD Resp: Auscultation: clear to auscultation bilaterally, no crackles, no rhonchi, no wheezes and diminished lung sounds Cardio: Rate: regular rate Rhythm: regular rhythm Heart sounds: no murmurs GI: Auscultation: normal bowel sounds Skin: General skin exam: normal color and no rashes or lesions noted Neuro: Speech: normal speech Extrem: General: normal to inspection, edema and pedal edema Objective Data Vital Signs Vital Signs: Vital Signs - 24 hr 09/10/19 17:29 09/10/19 19:52 09/10/19 20:58 Temperature Pulse Rate 78 Respiratory Rate Blood Pressure 131/65 Pulse Oximetry 95 09/10/19 21:25 09/10/19 22:00 09/11/19 01:14 Temperature 36.4 C Pulse Rate 74 76 74 Respiratory Rate 20 22 H 16 Blood Pressure 133/50 L Pulse Oximetry 94 90 94 09/11/19 05:52 09/11/19 08:15 09/11/19 08:35 Temperature 36.2 C L Pulse Rate 52 L 59 L Respiratory Rate 20 Blood Pressure 122/51 L Pulse Oximetry 90 90 09/11/19 08:40 09/11/19 14:00 09/11/19 14:20 Temperature 36.1 C L Pulse Rate 54 L 68 Respiratory Rate 18 20 Blood Pressure 138/62 118/54 L Pulse Oximetry 90 09/11/19 14:25 Temperature Pulse Rate 68 Respiratory Rate 20 Blood Pressure Pulse Oximetry Intake/Output Intake/Output: Intake & Output 09/08/19 09/09/19 09/10/19 09/11/19 23:59 23:59 23:59 23:59 Intake Total 1450 1080 1950 480 Output Total 1100 1100 800 50 Balance 350 -20 1150 430 Meds/Results Medications: Active Medications Generic Name Dose Route Start Last Admin Trade Name Freq PRN Reason Stop Dose Admin Acetaminophen 650 mg 09/02/19 09:15 09/08/19 21:26 Tylenol Tablet PO 650 mg Q4H PRN Administration Abdominal Cramping, Pain 1-3 Alprazolam 0.5 mg 09/09/19 17:01 09/11/19 12:38 Xanax PO 0.5 mg TID PRN Administration Anxiety Amlodipine Besylate 10 mg 09/11/19 09:00 09/11/19 08:35 Norvasc PO 10 mg QAM DEJON Administration Aspirin 81 mg 09/01/19 09:00 09/11/19 08:34 Aspirin Ec PO 81 mg DAILY DEJON Administration Benzocaine 1 lozenge 09/02/19 09:15 Chloraseptic Lozenge PO PRN PRN Sore Throat Bumetanide 2 mg 09/11/19 17:00 Bumex Inj IVPB BID DEJON Collagenase 1 applic 09/01/19 09:00 09/11/19 08:33 Santyl Oint TOPICAL 1 applic DAILY DEJON Administration Dext
[2019-09-11] MEDS: ONDANSETRON INJ 4 MG/2 ML VIAL IV PUSH (16:02)
[2019-09-11 17:49] LABS: Glucose Point of Care 180 (65-105)
[2019-09-11] MEDS: BUMETANIDE INJ 2.5 MG/10 ML VIAL 2 MG IVPB (18:01)
[2019-09-11] MEDS: INSULIN GLARGINE (*BKC) 100 UNITS/ML 10 UNITS SUB-Q (20:31)
[2019-09-11 20:57] LABS: Glucose Point of Care 168 (65-105)
[2019-09-11] MEDS: DORNASE ALFA INH SOLN 1 MG/ML 2.5 ML AMP 2.5 MG INHALATION (22:13)
[2019-09-12] VITALS (14 sets, daily range): BP systolic 129–157; BP diastolic 42–62; PULSE 58–91; RESP 16–24; TEMP 36.9–37.2; O2SAT 90–100
[2019-09-12] MEDS: LEVALBUTEROL NEB 1.25 MG/3 ML 0.63 MG INHALATION ×4 (02:39→19:45)
[2019-09-12] MEDS: IPRATROPIUM BR 0.02% INH SOLN 0.5 MG/2.5 ML VIAL INHALATION ×4 (02:39→19:45)
--- NOTE | 2019-09-12 04:58 | PCRCNOTE ---
CALLED TO PT ROOM FOR SPO2 84% ON 4LPM NC. PLACED PT ON BIPAP WITH ORDERED SETTINGS OF 14/5 R14. FIO2 INCREASED TO 60% FOR SPO2 92%
[2019-09-12] MEDS: hydrALAZINE HCL 50 MG TABLET PO ×3 (05:39→20:55)
[2019-09-12 05:58] LABS: Blood Urea Nitrogen 36 mg/dL (7-17); Calcium 8.3 mg/dL (8.4-10.2); Carbon Dioxide 31 mmol/L (22-30); Chloride 103 mmol/L (98-107); Estimated CRCL calculation 15 ml/min; Estimated Glomerular Filt Rate 10; Glucose 185 mg/dL (65-105); Potassium 5.2 mmol/L (3.4-5.0); Sodium 138 mmol/L (137-145)
[2019-09-12 05:59] LABS: Hematocrit 32.9 % (37.0-47.0); Hemoglobin 9.5 g/dL (12.0-15.0); Mean Corpuscular HGB Conc 28.9 g/dl (32-36); Mean Corpuscular Hemoglobin 28.4 pg (26-34); Mean Corpuscular Volume 98.2 fl (80-100); Mean Platelet Volume 9.8 fl (7.4-10.4); Platelet Count Result 240 k/mm3 (150-375); Red Blood Count 3.35 M/mm3 (4.2-5.4); Red Cell Distribution Width 15.2 % (11.5-14.5); White Blood Count 11.4 K/mm3 (4.5-10.0)
[2019-09-12 06:02] LABS: Albumin Level 3.3 g/dL (3.5-5.1); Blood Urea Nitrogen 36 mg/dL (7-17); Calcium 8.5 mg/dL (8.4-10.2); Carbon Dioxide 32 mmol/L (22-30); Chloride 102 mmol/L (98-107); Estimated CRCL calculation 15 ml/min; Estimated Glomerular Filt Rate 11; Glucose 190 mg/dL (65-105); Phosphorus 4.9 mg/dL (2.5-4.5); Potassium 5.2 mmol/L (3.4-5.0); Sodium 138 mmol/L (137-145)
[2019-09-12] MEDS: DORNASE ALFA INH SOLN 1 MG/ML 2.5 ML AMP 2.5 MG INHALATION ×2 (09:02→19:45)
[2019-09-12] MEDS: TOLNAFTATE 1% POWDER 45 GM BTL 1 APPLIC TOPICAL ×2 (09:21→20:55)
[2019-09-12] MEDS: METOPROLOL TARTRATE 50 MG TAB 100 MG PO ×2 (09:22→20:55)
[2019-09-12] MEDS: AMLODIPINE BESYLATE 5 MG TABLET 10 MG PO (09:22)
[2019-09-12] MEDS: BUMETANIDE INJ 2.5 MG/10 ML VIAL 2 MG IVPB ×2 (09:22→17:25)
[2019-09-12] MEDS: ACIDOPHILUS/BULGARICUS CHEWABLE TABLET 1 TABLET PO ×4 (09:23→20:54)
[2019-09-12] MEDS: FERROUS SULFATE 324 MG TABLET PO (09:23)
[2019-09-12] MEDS: SIMVASTATIN 20 MG TABLET 40 MG PO (09:23)
[2019-09-12] MEDS: ENOXAPARIN 30 MG/0.3 ML SYRINGE SUB-Q (09:24)
[2019-09-12] MEDS: ASPIRIN 81 MG ENTERIC TABLET PO (09:24)
[2019-09-12] MEDS: FAMOTIDINE 20 MG/2 ML VIAL IV PUSH ×2 (09:24→20:55)
[2019-09-12] MEDS: COLLAGENASE OINT 30 GM TUBE 1 APPLIC TOPICAL (09:25)
[2019-09-12] MEDS: metOLazone 5 MG TABLET PO (09:25)
--- NOTE | 2019-09-12 10:03 | PM.IMPN ---
Progress Note: A&P Assessment and Plan (1) Respiratory failure: Qualifiers: Chronicity: acute on chronic Respiratory failure complication: unspecified whether with hypoxia or hypercapnia Qualified Code(s): J96.20 - Acute and chronic respiratory failure, unspecified whether with hypoxia or hypercapnia Code(s): J96.90 - Respiratory failure, unspecified, unspecified whether with hypoxia or hypercapnia Status: Acute Assessment and Plan: Pulmonology consulted and appreciate input. Most likely multifactorial. Patient does have pulmonary hypertension, diastolic dysfunction and probable untreated/undiagnosed sleep apnea. Will continue BiPAP with naps and at night. Continue oxygen during the day currently at 2-3 L. Continue diuresis. Continue nebulizer treatments with Pulmozyme. Continue guaifenesin. Patient is more drowsy but may be more related to increasing creatinine level. Continue PT/OT as tolerates. Plan for SNF at discharge. (2) Chronic kidney disease, stage IV (severe): Code(s): N18.4 - Chronic kidney disease, stage 4 (severe) Status: Chronic Assessment and Plan: Nephrology consulted and appreciate input. Creatinine now up to 4.00 today. Does remain on oral Bumex. 24 hour urine with urine creatinine 96.8 and 24 hour creatinine 0.4. Await further recommendations from Nephrology. Family already aware dialysis possibility if kidney function not improving. (3) Diastolic dysfunction: Code(s): I51.89 - Other ill-defined heart diseases Status: Acute Assessment and Plan: Known diastolic dysfunction. Echocardiogram with EF 65-70% in addition to the diastolic dysfunction as well as severe pulmonary hypertension. On oral Bumex. Will continue to monitor. (4) Suspected sleep apnea: Code(s): R29.818 - Other symptoms and signs involving the nervous system Status: Acute Assessment and Plan: Suspected sleep apnea given all of her findings including severe pulmonary hypertension on echocardiogram. Continuing BiPAP as noted above. Will need eventual formal sleep study. (5) C. difficile colitis: Code(s): A04.72 - Enterocolitis due to Clostridium difficile, not specified as recurrent Status: Resolved Assessment and Plan: Now resolved with no further diarrhea. Has completed a 10 day course of oral vancomycin. Continue probiotic and banatrol. (6) UTI (urinary tract infection): Qualifiers: Hematuria presence: without hematuria Urinary tract infection type: site unspecified Qualified Code(s): N39.0 - Urinary tract infection, site not specified Code(s): N39.0 - Urinary tract infection, site not specified Status: Acute Assessment and Plan: Urine culture with Citrobacter freundii. Has completed 5 day course of IV ceftriaxone which is now discontinued. Mendez catheter remains in place. Will need to do eventual voiding trial but with increasing creatinine will not remove catheter today. (7) HTN (hypertension): Qualifiers: Hypertension type: essential hypertension Qualified Code(s): I10 - Essential (primary) hypertension Code(s): I10 - Essential (primary) hypertension Status: Chronic Assessment and Plan: Blood pressure reviewed on 09/12/2019 and now steadily remaining in acceptable range. Will continue to monitor on amlodipine, metoprolol, diltiazem and lisinopril. Will continue to monitor. Adjust treatment as needed. (8) Diabetes mellitus: Qualifiers: Chronic kidney disease stage: stage 4 (severe) Diabetes mellitus complication detail: with chronic kidney disease Diabetes mellitus complication status: with kidney complications Diabetes mellitus correction insulin use: with exterminator use Diabetes mellitus type: type 2 Qualified Code(s): E11.22 - Type 2 diabetes mellitus with diabetic chronic kidney disease; N18.4 - Chronic kidney disease, stage 4 (severe); Z79.4
[2019-09-12 10:18] LABS: Glucose Point of Care 142 (65-105)
[2019-09-12 11:36] LABS: Creatinine Urine 96.8 mg/dL
[2019-09-12 12:07] LABS: Creatinine 24 Hour Urine 0.4 gm/24 (0.8-1.8); Total Volume 24 Hour Urine 475 ml
--- NOTE | 2019-09-12 13:47 | PCOTNOTE ---
Attempted to see patient twice this date. First attempt, patient was sleeping on bi-pap and unable to be aroused. Second attempt, this pm patient was unavailable with nursing staff.
--- NOTE | 2019-09-12 18:11 | PM.PNNEP ---
Progress Note: A&P Assessment and Plan (1) JESSICA (acute kidney injury): Code(s): N17.9 - Acute kidney failure, unspecified Status: Acute Assessment and Plan: presumably due to acute illness, IV diuretics, pre-renal factors (from diarrhea), and infection (C.diff + Citrobacter UTI) creatinine is worse today again. on diuretics: Bumex iv and metolazone p.o. and still her urine output is very poor. Creatinine is higher. She is a little bit sleepy or today. So now she has fluid overload and her creatinine is worsened. This could be 2 things: Either she just has severe chronic kidney disease and is ready to start dialysis or she has acute on chronic kidney disease from the C diff then she might improve. I think we have come to the point where we need to start dialysis and if her renal function improves then we can always take her off. However she is volume overloaded and I fear that uremia might become worse if we wait too much longer. I talked with her and the family at length. We discussed how the dialysis does have side effects such as infection and low blood pressure. But the risks of not doing dialysis might be greater than the risks of dialysis and so we should probably proceed unless her kidneys magically open up overnight. So I will consult surgery to place a PermCath tomorrow for dialysis and we can initiate dialysis tomorrow. We will check blood work before hand though to make sure that things are not much better. I discussed with Dr. Koenig at length. 25 minutes were spent discussing the case with Dr. Koenig and family apart from clinical activity (2) Chronic kidney disease, stage IV (severe): Code(s): N18.4 - Chronic kidney disease, stage 4 (severe) Status: Chronic Assessment and Plan: baseline creatinine ~ 1.8 - 2.2mg/dl etiology due to hypertension, diabetes, and vascular disease Perhaps her kidney function is worse than her estimated GFR let us on. (3) Acute respiratory failure with hypoxia: Code(s): J96.01 - Acute respiratory failure with hypoxia Status: Acute Assessment and Plan: trying to diurese. We can remove fluid on dialysis tomorrow. (4) Colitis: Code(s): K52.9 - Noninfective gastroenteritis and colitis, unspecified Status: Acute Assessment and Plan: positive for C. diff colitis stools slowing down and more formed continue current therapy (5) UTI (urinary tract infection): Qualifiers: Urinary tract infection type: site unspecified Hematuria presence: without hematuria Qualified Code(s): N39.0 - Urinary tract infection, site not specified Code(s): N39.0 - Urinary tract infection, site not specified Status: Acute Assessment and Plan: urine culture with Citrobacter finished course of antibiotics. (6) HTN (hypertension): Qualifiers: Hypertension type: essential hypertension Qualified Code(s): I10 - Essential (primary) hypertension Code(s): I10 - Essential (primary) hypertension Status: Chronic Assessment and Plan: bp better. Will cut back on the blood pressure meds tomorrow. 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 She is in a chair. Son and daughter in larger in the room. We discussed the case at length. Exam Narrative: Exam Narrative: General: WD/WN female in NAD Heart: normal S1 and S2; no rub or gallop Lungs: coarse shawanda
[2019-09-12 19:26] LABS: Hepatitis B Surface Antigen Negative (Negative)
[2019-09-12 19:43] LABS: Hepatitis B Surface Anti Res Negative
[2019-09-12 19:44] LABS: Hepatitis C Virus Antibody Negative (Negative)
[2019-09-12] MEDS: INSULIN GLARGINE (*BKC) 100 UNITS/ML 10 UNITS SUB-Q (20:57)
[2019-09-12 21:03] LABS: Glucose Point of Care 177 (65-105)
[2019-09-13] VITALS (35 sets, daily range): BP systolic 120–166; BP diastolic 49–84; PULSE 16–81; RESP 16–100; TEMP 36.1–37; O2SAT 63–97
[2019-09-13] MEDS: IPRATROPIUM BR 0.02% INH SOLN 0.5 MG/2.5 ML VIAL INHALATION ×3 (02:20→14:34)
[2019-09-13] MEDS: LEVALBUTEROL NEB 1.25 MG/3 ML 0.63 MG INHALATION ×3 (02:25→14:33)
--- NOTE | 2019-09-13 04:23 | PC.NURSE ---
Kept pt NPO since midnight due to possibly surgery in the AM
[2019-09-13 05:24] LABS: Basophils Absolute Auto 0.1 K/mm3 (0.0-0.1); Basophils Percent Auto 0.6 % (0.2-1.2); Eosinophils Absolute Auto 0.1 K/mm3 (0-0.3); Eosinophils Percent Auto 0.8 % (0-4.4); Hematocrit 27.8 % (37.0-47.0); Hemoglobin 8.2 g/dL (12.0-15.0); Immature Granulocyte Absolute 0.15 K/mm3 (0.00-0.031); Immature Granulocyte Percent A 1.9 % (0-0.5); Lymphocytes Absolute Auto 1.97 K/mm3 (0.9-3.2); Lymphocytes Percent Auto 25.1 % (18.3-44.2); Mean Corpuscular HGB Conc 29.5 g/dl (32-36); Mean Corpuscular Hemoglobin 28.6 pg (26-34); Mean Corpuscular Volume 96.9 fl (80-100); Monocytes Absolute Auto 0.8 K/mm3 (0.1-0.6); Monocytes Percent Auto 9.7 % (2.6-8.5); Neutrophils Absolute Auto 4.9 K/mm3 (1.3-6.7); Neutrophils Percent Auto 61.9 % (45.5-73.1); Platelet Count Result 161 k/mm3 (150-375); Red Blood Count 2.87 M/mm3 (4.2-5.4); Red Cell Distribution Width 15.2 % (11.5-14.5); White Blood Count 7.9 K/mm3 (4.5-10.0)
[2019-09-13 05:39] LABS: Albumin Level 2.8 g/dL (3.5-5.1); Blood Urea Nitrogen 44 mg/dL (7-17); Calcium 7.7 mg/dL (8.4-10.2); Carbon Dioxide 30 mmol/L (22-30); Chloride 100 mmol/L (98-107); Estimated CRCL calculation 15 ml/min; Estimated Glomerular Filt Rate 11; Glucose 123 mg/dL (65-105); Phosphorus 4.8 mg/dL (2.5-4.5); Sodium 136 mmol/L (137-145)
--- NOTE | 2019-09-13 06:57 | PC.NURSE ---
called son Bowen to notify that they are planning on placing dialysis catheter and doing dialysis today.
[2019-09-13 07:26] LABS: Glucose Point of Care 120 (65-105)
[2019-09-13] MEDS: DORNASE ALFA INH SOLN 1 MG/ML 2.5 ML AMP 2.5 MG INHALATION (08:50)
--- NOTE | 2019-09-13 08:50 | PCPTNOTE ---
The PT treatment was unable to be completed today due to patient out of room for procedure. Will continue per Plan of Care frequency and duration.
[2019-09-13] MEDS: SODIUM CHLORIDE 0.9% IV 500 ML 30 ML IV CONT (09:30)
--- NOTE | 2019-09-13 09:49 | WPDANESEPPF ---
Anes - Initial Pre Proc Eval Procedure: Operation Date: 09/13/19 09:30 Proposed Procedures p INSERTION TUNNELLED DIALYSIS CATHETER - Chilo Sibley MD Date/Time: 09/13/19 09:49 Surgeon: Herminia Koenig MD Pre Op Diagnosis: colitis,renal insufficiency Patient Data Age: 69 Gender: F Height: 5 ft 4 in Weight: 121.5 kg Last Vital Signs Temp 36.8 C 09/13/19 05:43 Pulse 70 09/13/19 09:00 Resp 18 09/13/19 09:00 BP 135/50 L 09/13/19 05:43 Pulse Ox 92 09/13/19 08:50 Allergies Allergy/AdvReac Type Severity Reaction Status Date / Time clindamycin Allergy Unknown Unknown Verified 08/31/19 19:34 Penicillins Allergy Unknown Hives,Skin Verified 08/31/19 19:34 irritation Sulfa (Sulfonamide Allergy Unknown Hives,Skin Verified 08/31/19 19:34 Antibiotics) irritation Home Medications Medication Instructions Recorded Confirmed Type alprazolam 0.5 mg tablet 0.5 mg PO TID 05/09/19 08/31/19 History aspirin 81 mg tablet,delayed 81 mg PO DAILY 05/09/19 08/31/19 History release bumetanide 1 mg tablet 1 mg PO DAILY 05/09/19 08/31/19 History metoprolol tartrate 100 mg tablet 100 mg PO BID 05/09/19 08/31/19 History collagenase clostridium histo. 250 1 applic TOPICAL DAILY #30 gm 05/21/19 08/31/19 Rx unit/gram topical ointment simvastatin 40 mg tablet 40 mg PO DAILY #90 tablet 06/28/19 08/31/19 Rx Humalog Mix 75-25 KwikPen 80 unit SUBCUT QAM 08/22/19 08/31/19 History Humalog Mix 75-25 KwikPen 90 unit SUBCUT QACDINNER 08/22/19 08/31/19 History diltiazem HCl 180 mg BID 08/23/19 08/31/19 History ferrous sulfate 324 mg PO DAILY #30 tablet 08/26/19 08/31/19 Rx tolnaftate 1 applic TOPICAL Q12HR #45 gm 08/26/19 08/31/19 Rx Laboratory Tests 09/12/19 09/12/19 09/12/19 10:10 11:17 18:36 WBC RBC Hgb Hct MCV MCH MCHC RDW Plt Count MPV Immature Gran % (Auto) Neut % (Auto) Lymph % (Auto) [place] % (Auto) Eos % (Auto) Baso % (Auto) Lymph # (Auto) [place] # (Auto) Eos # (Auto) Baso # (Auto) Abs Immat Gran (auto) Absolute Neuts (auto) Absolute Nucleated RBC Nucleated RBC % PT INR APTT Sodium Potassium Chloride Carbon Dioxide BUN Creatinine Estim Creat Clear Calc Estimated GFR Glucose POC Capillary Glucose 142 mg/dl H mg/dl (65-105) Calcium Phosphorus Albumin Ur 24 Hour Volume 475 ml ml Urine Creatinine 96.8 mg/dL mg/dL Ur Creatinine 24 Hour 0.4 gm/24 L gm/24 (0.8-1.8) Hep Bs Antigen Negative (Negative) Hep Bs Antibody Negative Hep B Core Total Ab Hepatitis C Ab Screen 09/12/19 09/12/19 09/12/19 18:36 18:36 20:56 WBC RBC Hgb Hct MCV MCH MCHC RDW Plt Count MPV Immature Gran % (Auto) Neut % (Auto) Lymph % (Auto) [place] % (Auto) Eos % (Auto) Baso % (Auto) Lymph # (Auto) [place] # (Auto) Eos # (Auto) Baso # (Auto) Abs Immat Gran (auto) Absolute Neuts (auto) Absolute Nucleated RBC Nucleated RBC % PT INR APTT Sodium Potassium Chloride Carbon Dioxide BUN Creatinine Estim Creat Clear Calc Estimated GFR Glucose
[2019-09-13 09:59] LABS: INR 1.1; Prothrombin Time 13.7 Seconds (11.1-14.7)
[2019-09-13 10:00] LABS: Partial Thromboplastin Time 25.9 SECONDS (22.3-36.8)
[2019-09-13] MEDS: ceFAZolin 2 GM/D5W 50 ML 2 GM/50 ML BAG IVPB (10:16)
--- NOTE | 2019-09-13 10:18 | SUR.PREOP ---
SPOKE WITH PTS SON, WOULD LIKE TO BE CALLED WHEN SHE IS DONE WITH SURGERY. PT INFORMED HER SON IS WORKING AND WOULD NOT BE HERE.
--- NOTE | 2019-09-13 10:28 | PCOTNOTE ---
Attempted to see patient this am, however patient was off the floor at this time.
--- NOTE | 2019-09-13 10:36 | WPDHPUPDATE1 ---
History and Physical Update Update Date/Time: 09/13/19 10:36 History and Physical has been reviewed, including an updated exam of the patient. There are NO changes in the patient's condition. Risks, benefits, and alternatives of placement of a tunneled dialysis catheter have been discussed and questions answered. Patient agrees to proceed with procedure.
[2019-09-13] MEDS: BUPIVACAINE/EPINEPHRINE 0.25% 50 ML VIAL 15 ML INFILTRATE (10:57)
[2019-09-13] MEDS: HEPARIN SODIUM, PORCINE 10,000 UNITS/10 ML VIAL 10000 UNITS IV PUSH (11:01)
[2019-09-13] MEDS: HEPARIN SODIUM 5,000 UNITS/ML VIAL 1000 UNITS IRRIGATION (11:05)
--- NOTE | 2019-09-13 11:54 | PCNFU ---
Nutrition Follow-Up Complete: Suboptimal oral intake related to decreased appetite as evidenced by patient reports of eating only a few bites of meals and breakfast tray with minimal intake. Patient to consume 50% of meals or greater + supplements Goal:Progressing towards goal. Pt current nutrition is DBCC/2 gm Na . Nutrition recommendation: Agree Last recorded weight is 121.5 kg. Bowel Motility: NO BM reported since 09/09/19 Labs Reviewed: BUN 44,Cr 4.0,Glu 123,PO4 4.8,Na 136,Alb 2.8 Meds Noted: Aspirin, Lovenox Additional Notes: Patient getting Tunneled Catheter today. Intake is improving, more alert. She is currently on a DBCC/2 gm Na diet with diet supplements of Ensure compact TID providing an additional 220 kcals and 10 gms protein and Banatrol for Cdiff. Diet orders remain appropriate. Will continue to monitor. Follow up every 5 days.
--- NOTE | 2019-09-13 11:59 | PM.PROC ---
Procedure Note - Detailed Date of procedure: 09/13/19 Pre-op diagnosis: colitis,renal insufficiency End-stage renal disease Post-op diagnosis: same Procedure performed: Placement of tunneled dialysis catheter Description of procedure: The patient was placed in the supine position on the operating table and after induction of adequate mask general anesthesia by the nurse rn medication, we carefully rotated the patient's head and tilted slightly to the left then prepping both sides of the neck and chest with chlorhexidine. After waiting 3 minutes I carefully draped the patient, and we performed a time-out confirming the patient's site of surgery. Because of her size, a 28 cm DuraFlow catheter was selected. I used ultrasound to identify the right jugular vein in the mid neck and this was cannulated under direct vision with an 18-gauge Arrow needle on a syringe. Good dark blood was aspirated, the J-guidewire was advanced through the needle and into the central venous system under usual Seldinger technique. C-arm fluoroscopy was used to confirm that the wire was then through the central venous system and then we removed the needle and blue guide off the wire. Following this, we measured the DuraFlow catheter such that the tip would be just into the right atrium or in the distal superior vena cava. A hemostat was placed on the drapes over the chest to guide where we would place this. Then the catheter was measured back to the entry site of the J- wire in a curvilinear fashion and down to her chest overlying the right clavicle. Local anesthetic was placed into 3 stevens, the exit site and then 2 more on her lateral neck such that a curvilinear path could be dissected through the subcutaneous tissues up to the insertion site on her right neck. Local anesthetic was infiltrated along the tract prior to tunneling. Incisions were made with a 11 blade knife at the exit site and the 2 counter incisions and then an 11 blade at the wire. The tunneling device was connected to the catheter and this was pulled through these incisions to make the subcutaneous tunnel a curvilinear course through the subcutaneous tissues to the insertion site. Then the wire was serially dilated with a 12, 14, and then a 16-[place] dilator over the pull away sheath. We watched the 16-[place] dilator and sheath go down into the central venous system with C-arm fluoroscopy and then removed the dilator wire after carefully covering the end of the catheter. I lost some blood, as we then inserted the catheter down into the central venous system. The catheter was held in place with a DeBakey forceps and then we carefully tore away the sheath leaving the catheter within the subcutaneous tissues and down into the juglar vein. Following this, C-arm fluoroscopy was used to examine the full course of the catheter. The tip was just into the right atrium and there was a good curvilinear course of the catheter in the neck down to the exit site over the right clavicle. Minimal bleeding was continuing, so we then went ahead and closed these incisions with some buried subcutaneous sutures of 4-0 Monocryl directly over the catheter at the insertion site and then buried subcutaneous sutures at each of the incisions except the exit site. 3-0 nylon was used to suture the catheter at its hub to the skin and an antibiotic disc was placed at the exit site. Tegaderm applied over this and the patient was taken to the recovery room in good condition. No continuing bleeding was identified in the recovery room. The patient tolerated the procedure well. Chest x-ray in the recovery room shows the tip to be at the distal superior vena cava or just into the right atrium. No evidence of pneumothorax was seen. Estimated blood loss was again about 20 cc. Anesthesia: local (2% xylocaine with epinephrine) and other (GIVS) Surgeon: Chilo Sibley MD Government Documents Librarian: ARI Mukherjee, OR 1st assist Estimated blood loss (mL): 2 Drains: No Packing:
[2019-09-13 12:03] LABS: Glucose Point of Care 128 (65-105)
[2019-09-13 13:28] LABS: Glucose Point of Care 117 (65-105)
[2019-09-13] MEDS: COLLAGENASE OINT 30 GM TUBE 1 APPLIC TOPICAL (13:30)
--- NOTE | 2019-09-13 13:37 | PM.IMPN ---
Progress Note: A&P Assessment and Plan (1) Chronic kidney disease, stage IV (severe): Code(s): N18.4 - Chronic kidney disease, stage 4 (severe) Status: Chronic Assessment and Plan: Nephrology consulted and appreciate input. Creatinine remains unchanged at 4.00 today with BUN slightly higher at 44. Discussed with Dr. Gonzalez. With patient continued to have increasing creatinine, low urine output and fluid overload not responding well to diuretics, decision made to proceed with hemodialysis. Tunnel dialysis catheter placed today. Plan for hemodialysis this afternoon. Will continue to monitor. (2) Respiratory failure: Qualifiers: Chronicity: acute on chronic Respiratory failure complication: unspecified whether with hypoxia or hypercapnia Qualified Code(s): J96.20 - Acute and chronic respiratory failure, unspecified whether with hypoxia or hypercapnia Code(s): J96.90 - Respiratory failure, unspecified, unspecified whether with hypoxia or hypercapnia Status: Acute Assessment and Plan: Pulmonology consulted and appreciate input. Most likely multifactorial. Patient does have pulmonary hypertension, diastolic dysfunction and probable untreated/undiagnosed sleep apnea. Will continue BiPAP with naps and at night. Continue oxygen during the day currently at 3 L. Continue nebulizer treatments with Pulmozyme. Continue guaifenesin. Will hopefully notice some improvement in shortness of breath with hemodialysis. Continue PT/OT as tolerates. Plan for SNF at discharge. (3) Diastolic dysfunction: Code(s): I51.89 - Other ill-defined heart diseases Status: Acute Assessment and Plan: Known diastolic dysfunction. Echocardiogram with EF 65-70% in addition to the diastolic dysfunction as well as severe pulmonary hypertension. Plan now for hemodialysis as noted above. Currently on IV Bumex and oral metolazone but may adjust with hemodialysis. Will continue to monitor. (4) Suspected sleep apnea: Code(s): R29.818 - Other symptoms and signs involving the nervous system Status: Acute Assessment and Plan: Suspected sleep apnea given all of her findings including severe pulmonary hypertension on echocardiogram. Continuing BiPAP as noted above. Will need eventual formal sleep study. (5) C. difficile colitis: Code(s): A04.72 - Enterocolitis due to Clostridium difficile, not specified as recurrent Status: Resolved Assessment and Plan: Now resolved with no further diarrhea. Has completed a 10 day course of oral vancomycin. Continue probiotic and banatrol. (6) UTI (urinary tract infection): Qualifiers: Hematuria presence: without hematuria Urinary tract infection type: site unspecified Qualified Code(s): N39.0 - Urinary tract infection, site not specified Code(s): N39.0 - Urinary tract infection, site not specified Status: Acute Assessment and Plan: Urine culture with Citrobacter freundii. Has completed 5 day course of IV ceftriaxone which is now discontinued. Mendez catheter remains in place. Will need to do eventual voiding trial. (7) HTN (hypertension): Qualifiers: Hypertension type: essential hypertension Qualified Code(s): I10 - Essential (primary) hypertension Code(s): I10 - Essential (primary) hypertension Status: Chronic Assessment and Plan: Blood pressure reviewed on 09/13/2019 and still with mildly elevated readings. May improve with hemodialysis. Continue metoprolol, hydralazine and diltiazem. Will continue to monitor. (8) Diabetes mellitus: Qualifiers: Chronic kidney disease stage: stage 4 (severe) Diabetes mellitus complication detail: with chronic kidney disease Diabetes mellitus complication status: with kidney complications Diabetes mellitus continuous churn buttermaker insulin use: with continuous churn buttermaker use Diabetes mellitus type: type 2 Qualified Code(s): E11.22 - Type 2
[2019-09-13] MEDS: ACIDOPHILUS/BULGARICUS CHEWABLE TABLET 1 TABLET PO ×2 (19:17→20:29)
[2019-09-13] MEDS: ONDANSETRON INJ 4 MG/2 ML VIAL IV PUSH (20:05)
[2019-09-13] MEDS: FERROUS SULFATE 324 MG TABLET PO (20:28)
[2019-09-13] MEDS: SIMVASTATIN 20 MG TABLET 40 MG PO (20:29)
[2019-09-13] MEDS: ASPIRIN 81 MG ENTERIC TABLET PO (20:29)
[2019-09-13] MEDS: FAMOTIDINE 20 MG/2 ML VIAL IV PUSH (20:29)
[2019-09-13] MEDS: METOPROLOL TARTRATE 50 MG TAB 100 MG PO (20:30)
[2019-09-13] MEDS: TOLNAFTATE 1% POWDER 45 GM BTL 1 APPLIC TOPICAL (20:30)
[2019-09-13] MEDS: INSULIN GLARGINE (*BKC) 100 UNITS/ML 10 UNITS SUB-Q (20:32)
[2019-09-14] VITALS (32 sets, daily range): BP systolic 125–171; BP diastolic 50–71; PULSE 52–88; RESP 16–22; TEMP 36.4–37; O2SAT 92–99
[2019-09-14] MEDS: hydrALAZINE HCL 50 MG TABLET PO ×4 (01:31→22:23)
[2019-09-14] MEDS: SENNA/DOCUSATE SODIUM TABLET 2 TAB PO ×2 (01:31→20:29)
[2019-09-14] MEDS: IPRATROPIUM BR 0.02% INH SOLN 0.5 MG/2.5 ML VIAL INHALATION ×4 (01:39→19:35)
[2019-09-14] MEDS: LEVALBUTEROL NEB 1.25 MG/3 ML 0.63 MG INHALATION ×4 (01:39→19:34)
[2019-09-14 05:26] LABS: Hematocrit 27.5 % (37.0-47.0); Hemoglobin 8.1 g/dL (12.0-15.0); Mean Corpuscular HGB Conc 29.5 g/dl (32-36); Mean Corpuscular Hemoglobin 28.3 pg (26-34); Mean Corpuscular Volume 96.2 fl (80-100); Mean Platelet Volume 10.4 fl (7.4-10.4); Platelet Count Result 148 k/mm3 (150-375); Red Blood Count 2.86 M/mm3 (4.2-5.4); Red Cell Distribution Width 15.2 % (11.5-14.5); White Blood Count 8.6 K/mm3 (4.5-10.0)
[2019-09-14 05:52] LABS: Blood Urea Nitrogen 36 mg/dL (7-17); Carbon Dioxide 33 mmol/L (22-30); Chloride 101 mmol/L (98-107); Estimated CRCL calculation 16 ml/min; Estimated Glomerular Filt Rate 12; Glucose 103 mg/dL (65-105); Sodium 134 mmol/L (137-145)
[2019-09-14 06:59] LABS: Glucose Point of Care 119 (65-105)
[2019-09-14] MEDS: COLLAGENASE OINT 30 GM TUBE 1 APPLIC TOPICAL (08:07)
[2019-09-14] MEDS: TOLNAFTATE 1% POWDER 45 GM BTL 1 APPLIC TOPICAL ×2 (08:08→20:29)
--- NOTE | 2019-09-14 08:25 | PC.NURSE ---
0825-To dialysis per bed.
[2019-09-14] MEDS: DORNASE ALFA INH SOLN 1 MG/ML 2.5 ML AMP 2.5 MG INHALATION ×2 (09:53→19:35)
--- NOTE | 2019-09-14 10:17 | PM.PNNEP ---
Progress Note: A&P Assessment and Plan (1) JESSICA (acute kidney injury): Code(s): N17.9 - Acute kidney failure, unspecified Status: Acute Assessment and Plan: presumably due to acute illness, IV diuretics, pre-renal factors (from diarrhea), and infection (C.diff + Citrobacter UTI) This may be just progression of chronic kidney disease as well. She is now getting dialysis. Will continue diuretics but hold blood pressure meds for now. (2) Chronic kidney disease, stage IV (severe): Code(s): N18.4 - Chronic kidney disease, stage 4 (severe) Status: Chronic Assessment and Plan: baseline creatinine ~ 1.8 - 2.2mg/dl etiology due to hypertension, diabetes, and vascular disease Perhaps her kidney function is worse than her estimated GFR let us on. (3) Acute respiratory failure with hypoxia: Code(s): J96.01 - Acute respiratory failure with hypoxia Status: Acute Assessment and Plan: trying to diurese. Removed more than 3L yesterday. We will remove more fluid today. (4) Colitis: Code(s): K52.9 - Noninfective gastroenteritis and colitis, unspecified Status: Acute Assessment and Plan: Diarrhea better. C diff is resolved (5) UTI (urinary tract infection): Qualifiers: Urinary tract infection type: site unspecified Hematuria presence: without hematuria Qualified Code(s): N39.0 - Urinary tract infection, site not specified Code(s): N39.0 - Urinary tract infection, site not specified Status: Acute Assessment and Plan: Completed course of antibiotics (6) HTN (hypertension): Qualifiers: Hypertension type: essential hypertension Qualified Code(s): I10 - Essential (primary) hypertension Code(s): I10 - Essential (primary) hypertension Status: Chronic Assessment and Plan: bp better. Holding blood pressure meds. (7) Heel ulcer: Qualifiers: Laterality: right Non-pressure ulcer stage: limited to breakdown of skin Qualified Code(s): L97.411 - Non-pressure chronic ulcer of right heel and midfoot limited to breakdown of skin Code(s): L97.409 - Non-pressure chronic ulcer of unspecified heel and midfoot with unspecified severity Status: Acute Assessment and Plan: no apparent active infection continue local wound care Additional Plan Subjective Date/time seen: 09/14/19 10:17 Interval history: feels better today. She had dialysis yesterday and is less short of breath. Blood pressure is better today as well. BP meds have been held Exam Narrative: Exam Narrative: General: WD/WN female in NAD Heart: normal S1 and S2; no rub or gallop Lungs: A little bit clearer today. Abdomen: BS+ nontender and soft Extremities: 1-2+ edema Skin: chronic venous stasis changes noted no acute rash Objective Data Vital Signs Vital Signs: Vital Signs - 24 hr 09/13/19 11:54 09/13/19 12:05 09/13/19 12:20 Temperature 36.2 C L Pulse Rate 62 60 60 Respiratory Rate 22 H 16 16 Blood Pressure 130/57 L 148/56 H 152/59 H Pulse Oximetry 97 97 92 09/13/19 12:35 09/13/19 12:50 09/13/19 13:30 Temperature 36.1 C L 36.4 C L Pulse Rate 60 61 60 Respiratory Rate 16 16 16 Blood Pressure 145/62 H 139/49 L 152/84 H Pulse Oximetry 92 91 93 09/13/19 13:41 09/13/19 14:00 09/13/19 14:34 Temperature 36.7 C 36.4 C L Pulse Rate 60 16 L 66 Respiratory Rate 16 100 H 18 Blood Pressure 151/57 H 166/58 H Pulse Oximetry 91 63 L 09/13/19 14:45 09/13/19 15:51 09/13/19 16:02 Temperature 36.6 C Pulse Rate 70 64 60 Respiratory Rate 18 16 Blood Pressure 162/75 H 154/70 H Pulse Oximetry 09/13/19 16:15 09/13/19 16:30 09/13/19 16:45 Temperature Pulse Rate 63 63 64 Respiratory Rate Blood Pressure 146/82 H 150/72 H 155/70 H Pulse Oximetry 09/13/19 17:00 09/13/19 17:15 09/13/19 17:30 Temperature Pulse Rate 64 62 64 Re
--- NOTE | 2019-09-14 10:20 | PM.EVENT ---
Event Note Event Note Event Note: The patient is on dialysis and tolerating it well. She was seen at 10:00 a.m.. Her blood pressure is doing well with fluid removal.
[2019-09-14 10:24] LABS: Glucose Point of Care 103 (65-105)
--- NOTE | 2019-09-14 11:10 | WPDANESPN ---
Anes - Prog Note Post-Op Date/Time: 09/14/19 11:10 Cardiovascular status: normal Respiratory status: normal Airway patency: baseline Mental status: baseline Post-Op hydration status: normal Vital Signs: Last Vital Signs Temp 36.7 C 09/14/19 08:52 Pulse 56 L 09/14/19 11:00 Resp 16 09/14/19 10:09 BP 135/55 L 09/14/19 11:00 Pulse Ox 92 09/14/19 09:56 I/O: Intake & Output 09/13/19 09/14/19 09/14/19 23:59 07:59 15:59 Intake Total 350 300 240 Output Total 3700 Balance -3350 300 240 Laboratory Tests 09/14/19 05:07 09/14/19 05:07 09/13/19 09/13/19 09/13/19 12:01 13:24 20:31 WBC RBC Hgb Hct MCV MCH MCHC RDW Plt Count MPV Sodium Potassium Chloride Carbon Dioxide BUN Creatinine Estim Creat Clear Calc Estimated GFR Glucose POC Capillary Glucose 128 H 117 H 119 H Calcium 09/14/19 09/14/19 09/14/19 05:07 05:07 07:48 WBC 8.6 RBC 2.86 L Hgb 8.1 L Hct 27.5 L MCV 96.2 MCH 28.3 MCHC 29.5 L RDW 15.2 H Plt Count 148 L MPV 10.4 Sodium 134 L Potassium 5.0 Chloride 101 Carbon Dioxide 33 H BUN 36 H Creatinine 3.80 H Estim Creat Clear Calc 16 Estimated GFR 12 L Glucose 103 POC Capillary Glucose 103 Calcium 8.0 L Post-procedural complaints: none Patient Feedback: Patient satisfied with anesthetic care.
--- NOTE | 2019-09-14 11:41 | PCOTNOTE ---
Attempted to see patient this a.m. Patient not present in room due to dialysis treatment. OT session not completed at this time.
[2019-09-14] MEDS: EPOETIN ALFA 10,000 UNITS/ML VIAL 10000 UNITS IV PUSH (11:46)
--- NOTE | 2019-09-14 12:10 | PC.NURSE ---
1210-pt returned from dialysis
[2019-09-14] MEDS: ENOXAPARIN 30 MG/0.3 ML SYRINGE SUB-Q (12:22)
[2019-09-14] MEDS: ACIDOPHILUS/BULGARICUS CHEWABLE TABLET 1 TABLET PO ×4 (12:23→20:29)
[2019-09-14] MEDS: METOPROLOL TARTRATE 50 MG TAB 100 MG PO ×2 (12:23→20:28)
[2019-09-14] MEDS: FAMOTIDINE 20 MG/2 ML VIAL IV PUSH ×2 (12:24→20:29)
[2019-09-14] MEDS: BUMETANIDE INJ 2.5 MG/10 ML VIAL 2 MG IVPB ×2 (12:24→17:03)
--- NOTE | 2019-09-14 13:21 | PM.IMPN ---
Progress Note: A&P Assessment and Plan (1) Chronic kidney disease, stage IV (severe): Code(s): N18.4 - Chronic kidney disease, stage 4 (severe) Status: Chronic Assessment and Plan: Nephrology consulted and appreciate input. With creatinine remaining elevated, low urine output, fluid overload and patient remaining drowsy, decision was made to start hemodialysis. Tunneled dialysis catheter placed on 09/13/[address] Sibley. Had 1st session of hemodialysis yesterdary. Had hemodialysis again this morning. Creatinine a little better at 3.80 today. Will continue to follow. Continue PT/OT. Plan is still for SNF when ready for discharge. (2) Respiratory failure: Qualifiers: Chronicity: acute on chronic Respiratory failure complication: unspecified whether with hypoxia or hypercapnia Qualified Code(s): J96.20 - Acute and chronic respiratory failure, unspecified whether with hypoxia or hypercapnia Code(s): J96.90 - Respiratory failure, unspecified, unspecified whether with hypoxia or hypercapnia Status: Acute Assessment and Plan: Pulmonology consulted and appreciate input. Most likely multifactorial. Patient does have pulmonary hypertension, diastolic dysfunction and probable untreated/undiagnosed sleep apnea. Will continue BiPAP with naps and at night. Continue oxygen during the day and now back down to 2 L. Continue nebulizer treatments with Pulmozyme. Continue guaifenesin. Will continue to monitor. (3) Diastolic dysfunction: Code(s): I51.89 - Other ill-defined heart diseases Status: Acute Assessment and Plan: Known diastolic dysfunction. Echocardiogram with EF 65-70% in addition to the diastolic dysfunction as well as severe pulmonary hypertension. Now with hemodialysis as noted above. IV Bumex not given yesterday but resumed today. Metolazone on hold per nephrology. Will continue to monitor. (4) Suspected sleep apnea: Code(s): R29.818 - Other symptoms and signs involving the nervous system Status: Acute Assessment and Plan: Suspected sleep apnea given all of her findings including severe pulmonary hypertension on echocardiogram. Continuing BiPAP as noted above. Will need eventual formal sleep study as an outpatient. (5) HTN (hypertension): Qualifiers: Hypertension type: essential hypertension Qualified Code(s): I10 - Essential (primary) hypertension Code(s): I10 - Essential (primary) hypertension Status: Chronic Assessment and Plan: Blood pressure reviewed on 09/14/2019 with readings acceptable. Per nephrology, diltiazem held today. Continue metoprolol and hydralazine. Will continue to monitor. 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 On Humalog 75/25 at home but not being given here. Glucose reviewed on 09/14/2019 and controlled. Continue low-dose Lantus. Sliding scale insulin available as needed. Will continue to monitor. (7) C. difficile colitis: Code(s): A04.72 - Enterocolitis due to Clostridium difficile, not specified as recurrent Status: Resolved Assessment and Plan: Now resolved with no further diarrhea. Has completed a 10 day course of oral vancomycin. Continue probiotic and banatrol. Off isolation. (8) UTI (urinary tract infection): Qualifiers: Urinary tract inf
[2019-09-14 13:28] LABS: Glucose Point of Care 100 (65-105)
[2019-09-14] MEDS: ASPIRIN 81 MG ENTERIC TABLET PO (15:13)
[2019-09-14] MEDS: SIMVASTATIN 20 MG TABLET 40 MG PO (15:13)
[2019-09-14] MEDS: FERROUS SULFATE 324 MG TABLET PO (15:14)
--- NOTE | 2019-09-14 15:31 | PCOTNOTE ---
Attempted to see patient a second time this date during p.m. Patient participated in OT session. See note dated on 09/14/2019 for reference.
[2019-09-14 18:09] LABS: Glucose Point of Care 108 (65-105)
--- NOTE | 2019-09-14 18:52 | PM.PNPUL ---
Progress Note: A&P Assessment and Plan (1) Respiratory failure, [id number]: Code(s): J96.20 - Acute and chronic respiratory failure, unspecified whether with hypoxia or hypercapnia Status: Acute Assessment and Plan: pCO2 was elevated in the 60+ range Sep 02, improved on September 03. She likely had high pCO2 again today as she improved with placement of BiPAP. Would like to keep FiO2 as low as possible. on 60% and biPAP 14/10 saturation was 99%. (2) Pulmonary hypertension: Code(s): I27.20 - Pulmonary hypertension, unspecified Status: Acute (3) Suspected sleep apnea: Code(s): R29.818 - Other symptoms and signs involving the nervous system Status: Acute Assessment and Plan: - needs outpatient sleep study to confirm and titrate CPAP therapy - continue current BIPAP settings - I've ordered an outpatient sleep study for her in one month time (4) Obesity: Code(s): E66.9 - Obesity, unspecified Status: Acute Subjective Date/time seen: 09/14/19 18:52 Interval history: Patient was seen at 18:15; Awake and alert. She had HD earlier today, dilatiazem was held as her heart rate was on the low side. returned to her room, was more confused, thought that she was at her daughter's house. Her RN placed her BiPAP on, and she improved as far as her confusion. She is on 14/5, 60% with a saturation of 99%, so the O2 was decreased to 40%, and RT was notified. She is not short of breath. Poor appetite. Review of Systems Review of Systems: All systems reviewed & are unremarkable except as noted in HPI and below Exam Const: General: comfortable and no acute distress Other: Nausesous this morning HENMT: Mouth: Yes moist mucous membranes and Yes Abnormal oral and palatal mucosa present Neck: Neck: supple and no JVD Resp: Auscultation: clear to auscultation bilaterally, no crackles, no rhonchi, no wheezes and diminished lung sounds Cardio: Rate: regular rate Rhythm: regular rhythm Heart sounds: no murmurs GI: Auscultation: normal bowel sounds Skin: General skin exam: normal color and no rashes or lesions noted Neuro: Cognition (Neuro): normal cognition Speech: normal speech Extrem: General: normal to inspection, edema and pedal edema Objective Data Vital Signs Vital Signs: Vital Signs - 24 hr 09/13/19 19:00 09/13/19 19:03 09/13/19 19:13 Temperature 36.7 C Pulse Rate 66 66 68 Respiratory Rate 20 Blood Pressure 120/64 121/65 139/72 Pulse Oximetry 09/13/19 20:00 09/14/19 00:29 09/14/19 01:27 Temperature 36.7 C Pulse Rate 69 88 Respiratory Rate 20 22 H Blood Pressure 151/54 H 136/61 Pulse Oximetry 97 94 09/14/19 01:40 09/14/19 01:46 09/14/19 01:47 Temperature Pulse Rate 74 84 75 Respiratory Rate 18 19 18 Blood Pressure Pulse Oximetry 95 09/14/19 02:16 09/14/19 06:00 09/14/19 08:52 Temperature 36.6 C 36.7 C Pulse Rate 87 57 L 59 L Respiratory Rate 18 20 18 Blood Pressure 134/50 L 163/71 H Pulse Oximetry 92 99 09/14/19 09:00 09/14/19 09:15 09/14/19 09:30 Temperature Pulse Rate 58 L 56 L 56 L Respiratory Rate Blood Pressure 164/71 H 142/60 H 144/61 H Pulse Oximetry 09/14/19 09:45 09/14/19 09:56 09/14/19 10:00 Temperature Pulse Rate 54 L 56 L 57 L Respiratory Rate 16 Blood Pressure 139/55 L 143/54 H Pulse Oximetry 92 09/14/19 10:09 09/14/19 10:15 09/14/19 10:30 Temperature Pulse Rate 58 L 56 L 56 L Respiratory Rate 16 Blood Pressure 149/64 H 151/68 H Pulse Oximetry 09/14/19 10:45 09/14/19 11:00 09/14/19 11:15 Temperature Pulse Rate 53 L 56 L 52 L Respiratory Rate Blood Pressure 146/68 H 135/55 L 125/50 L Pulse Oximetry 09/14/19 11:30 09/14/19 11:49 09/14/19 12:23 Temperature 36.7 C Pulse Rate 57 L 61 61 Respiratory Rate 16 Blood Pressure 136/53 L 148/64 H Pulse Oximetry 09/14/19 14:00 09/14/19 14:48 09/14/19 15:00 Temperature 36.6 C
[2019-09-14] MEDS: INSULIN GLARGINE (*BKC) 100 UNITS/ML 10 UNITS SUB-Q (20:34)
[2019-09-15] VITALS (17 sets, daily range): BP systolic 139–171; BP diastolic 55–75; PULSE 60–76; RESP 16–24; TEMP 36.1–36.9; O2SAT 91–99
[2019-09-15] MEDS: IPRATROPIUM BR 0.02% INH SOLN 0.5 MG/2.5 ML VIAL INHALATION ×4 (01:17→20:37)
[2019-09-15] MEDS: LEVALBUTEROL NEB 1.25 MG/3 ML 0.63 MG INHALATION ×4 (01:17→20:37)
[2019-09-15 01:41] LABS: Glucose Point of Care 138 (65-105)
[2019-09-15] MEDS: hydrALAZINE HCL 50 MG TABLET PO ×3 (05:02→22:26)
[2019-09-15 05:49] LABS: Albumin Level 2.9 g/dL (3.5-5.1); Blood Urea Nitrogen 27 mg/dL (7-17); Calcium 8.3 mg/dL (8.4-10.2); Carbon Dioxide 32 mmol/L (22-30); Chloride 98 mmol/L (98-107); Estimated CRCL calculation 19 ml/min; Estimated Glomerular Filt Rate 15; Glucose 91 mg/dL (65-105); Phosphorus 3.7 mg/dL (2.5-4.5); Potassium 4.3 mmol/L (3.4-5.0); Sodium 132 mmol/L (137-145)
[2019-09-15] MEDS: DORNASE ALFA INH SOLN 1 MG/ML 2.5 ML AMP 2.5 MG INHALATION ×2 (08:33→20:37)
[2019-09-15] MEDS: FERROUS SULFATE 324 MG TABLET PO (09:01)
[2019-09-15] MEDS: ASPIRIN 81 MG ENTERIC TABLET PO (09:01)
[2019-09-15] MEDS: SIMVASTATIN 20 MG TABLET 40 MG PO (09:02)
[2019-09-15] MEDS: ACIDOPHILUS/BULGARICUS CHEWABLE TABLET 1 TABLET PO ×4 (09:02→20:31)
[2019-09-15] MEDS: METOPROLOL TARTRATE 50 MG TAB 100 MG PO ×2 (09:02→20:30)
[2019-09-15] MEDS: FAMOTIDINE 20 MG/2 ML VIAL IV PUSH ×2 (09:03→20:30)
[2019-09-15] MEDS: ENOXAPARIN 30 MG/0.3 ML SYRINGE SUB-Q (09:03)
[2019-09-15] MEDS: COLLAGENASE OINT 30 GM TUBE 1 APPLIC TOPICAL (09:05)
[2019-09-15] MEDS: TOLNAFTATE 1% POWDER 45 GM BTL 1 APPLIC TOPICAL ×2 (09:14→20:31)
--- NOTE | 2019-09-15 09:28 | P.PNNP_ITS ---
Progress Note: A&P Assessment and Plan (1) JESSICA (acute kidney injury): Code(s): N17.9 - Acute kidney failure, unspecified Status: Acute Assessment and Plan: * presumably due to acute illness, IV diuretics, pre-renal factors (from diarrhea), and infection (C.diff + Citrobacter UTI) * Hemodialysis tomorrow * Will continue diuretics * I do not think we need the Mendez catheter anymore. (2) Chronic kidney disease, stage IV (severe): Code(s): N18.4 - Chronic kidney disease, stage 4 (severe) Status: Chronic Assessment and Plan: * baseline creatinine ~ 1.8 - 2.2mg/dl * etiology due to hypertension, diabetes, and vascular disease (3) Acute respiratory failure with hypoxia: Code(s): J96.01 - Acute respiratory failure with hypoxia Status: Acute Assessment and Plan: * trying to diurese. * Removing fluid with dialysis. * She has needed BiPAP mask during the day lately. * She is on oxygen per nasal cannula (4) Colitis: Code(s): K52.9 - Noninfective gastroenteritis and colitis, unspecified Status: Acute Assessment and Plan: * Diarrhea better. * C diff is resolved (5) UTI (urinary tract infection): Qualifiers: Urinary tract infection type: site unspecified Hematuria presence: without hematuria Qualified Code(s): N39.0 - Urinary tract infection, site not specified Code(s): N39.0 - Urinary tract infection, site not specified Status: Resolved Assessment and Plan: * Completed course of antibiotics (6) HTN (hypertension): Qualifiers: Hypertension type: essential hypertension Qualified Code(s): I10 - Essential (primary) hypertension Code(s): I10 - Essential (primary) hypertension Status: Chronic Assessment and Plan: * bp was better yesterday but is up today. * Will keep off Cardizem. * Continue metoprolol. * Add losartan. * In addition she continues on hydralazine and metolazone. * Continue to remove fluid with dialysis. (7) Heel ulcer: Qualifiers: Laterality: right Non-pressure ulcer stage: limited to breakdown of skin Qualified Code(s): L97.411 - Non-pressure chronic ulcer of right heel and midfoot limited to breakdown of skin Code(s): L97.409 - Non-pressure chronic ulcer of unspecified heel and midfoot with unspecified severity Status: Acute Assessment and Plan: * no apparent active infection * continue local wound care Additional Plan Subjective Date/time seen: 09/15/19 09:28 Interval history: feels better today. Sitting up in a chair. No chest pain or shortness of breath. She has a little nausea this morning. Exam Narrative: Exam Narrative: General: WD/WN female in NAD Heart: normal S1 and S2; no rub or gallop Lungs: Fairly clear Abdomen: BS+ nontender Extremities: 1-2+ edema Skin: chronic venous stasis changes noted no acute rash Objective Data Vital Signs Vital Signs: Vital Signs - 24 hr 09/14/19 09:30 09/14/19 09:45 09/14/19 09:56 Temperature Pulse Rate 56 L 54 L 56 L Respiratory Rate 16 Blood Pressure 144/61 H 139/55 L Pulse Oximetry 92 09/14/19 10:00 09/14/19 10:09 09/14/19 10:15 Temperature Pulse Rate 57 L 58 L 56 L Respiratory Rate 16 Blood Pressure 143/54 H 149/
--- NOTE | 2019-09-15 09:28 | PM.PNNEP ---
Progress Note: A&P Assessment and Plan (1) JESSICA (acute kidney injury): Code(s): N17.9 - Acute kidney failure, unspecified Status: Acute Assessment and Plan: presumably due to acute illness, IV diuretics, pre-renal factors (from diarrhea), and infection (C.diff + Citrobacter UTI) Hemodialysis tomorrow Will continue diuretics I do not think we need the Mendez catheter anymore. (2) Chronic kidney disease, stage IV (severe): Code(s): N18.4 - Chronic kidney disease, stage 4 (severe) Status: Chronic Assessment and Plan: baseline creatinine ~ 1.8 - 2.2mg/dl etiology due to hypertension, diabetes, and vascular disease (3) Acute respiratory failure with hypoxia: Code(s): J96.01 - Acute respiratory failure with hypoxia Status: Acute Assessment and Plan: trying to diurese. Removing fluid with dialysis. She has needed BiPAP mask during the day lately. She is on oxygen per nasal cannula (4) Colitis: Code(s): K52.9 - Noninfective gastroenteritis and colitis, unspecified Status: Acute Assessment and Plan: Diarrhea better. C diff is resolved (5) UTI (urinary tract infection): Qualifiers: Urinary tract infection type: site unspecified Hematuria presence: without hematuria Qualified Code(s): N39.0 - Urinary tract infection, site not specified Code(s): N39.0 - Urinary tract infection, site not specified Status: Resolved Assessment and Plan: Completed course of antibiotics (6) HTN (hypertension): Qualifiers: Hypertension type: essential hypertension Qualified Code(s): I10 - Essential (primary) hypertension Code(s): I10 - Essential (primary) hypertension Status: Chronic Assessment and Plan: bp was better yesterday but is up today. Will keep off Cardizem. Continue metoprolol. Add losartan. In addition she continues on hydralazine and metolazone. Continue to remove fluid with dialysis. (7) Heel ulcer: Qualifiers: Laterality: right Non-pressure ulcer stage: limited to breakdown of skin Qualified Code(s): L97.411 - Non-pressure chronic ulcer of right heel and midfoot limited to breakdown of skin Code(s): L97.409 - Non-pressure chronic ulcer of unspecified heel and midfoot with unspecified severity Status: Acute Assessment and Plan: no apparent active infection continue local wound care Additional Plan Subjective Date/time seen: 09/15/19 09:28 Interval history: feels better today. Sitting up in a chair. No chest pain or shortness of breath. She has a little nausea this morning. Exam Narrative: Exam Narrative: General: WD/WN female in NAD Heart: normal S1 and S2; no rub or gallop Lungs: Fairly clear Abdomen: BS+ nontender Extremities: 1-2+ edema Skin: chronic venous stasis changes noted no acute rash Objective Data Vital Signs Vital Signs: Vital Signs - 24 hr 09/14/19 09:30 09/14/19 09:45 09/14/19 09:56 Temperature Pulse Rate 56 L 54 L 56 L Respiratory Rate 16 Blood Pressure 144/61 H 139/55 L Pulse Oximetry 92 09/14/19 10:00 09/14/19 10:09 09/14/19 10:15 Temperature Pulse Rate 57 L 58 L 56 L Respiratory Rate 16 Blood Pressure 143/54 H 149/64 H Pulse Oximetry 09/14/19 10:30 09/14/19 10:45 09/14/19 11:00 Temperature Pulse Rate 56 L 53 L 56 L Respiratory Rate Blood Pressure 151/68 H 146/68 H 135/55 L Pulse Oximetry 09/14/19 11:15 09/14/19 11:30 09/14/19 11:49 Temperature 36.7 C Pulse Rate 52 L 57 L 61 Respiratory Rate 16 Blood Pressure 125/50 L 136/53 L 148/64 H Pulse Oximetry 09/14/19 12:23 09/14/19 14:00 09/14/19 14:48 Temperature 36.6 C Pulse Rate 61 57 L 58 L Respiratory Rate 16 16 Blood Pressure 136/57 L Pulse Oximetry 92 09/14/19 15:00 09/14/19 18:38 09/14/19 19:37 Temperature Pulse Rate 60 64 66 Respiratory
[2019-09-15 09:59] LABS: Glucose Point of Care 84 (65-105)
[2019-09-15] MEDS: BUMETANIDE INJ 2.5 MG/10 ML VIAL 2 MG IVPB ×2 (10:27→16:57)
[2019-09-15] MEDS: lisinopriL 20 MG TABLET PO (10:28)
--- NOTE | 2019-09-15 11:52 | PM.IMPN ---
Progress Note: A&P Assessment and Plan (1) Chronic kidney disease, stage IV (severe): Code(s): N18.4 - Chronic kidney disease, stage 4 (severe) Status: Chronic Assessment and Plan: Nephrology consulted and appreciate input. With creatinine remaining elevated, low urine output, fluid overload and patient remaining drowsy, decision was made to start hemodialysis. Tunneled dialysis catheter placed on 09/13/[address] Sbiley. Had 1st session of hemodialysis on 09/13/2019 and again yesterday. Creatinine 3.[address] Gonzalez. Mendez catheter removed today. Plan for hemodialysis again tomorrow. Continue PT/OT. Advised care coordination may be ready for discharge in next 1-2 days. Has been accepted with insurance authorization in place to go to [facility]. Outpatient hemodialysis being arranged. Will continue to monitor. (2) Respiratory failure: Qualifiers: Chronicity: acute on chronic Respiratory failure complication: unspecified whether with hypoxia or hypercapnia Qualified Code(s): J96.20 - Acute and chronic respiratory failure, unspecified whether with hypoxia or hypercapnia Code(s): J96.90 - Respiratory failure, unspecified, unspecified whether with hypoxia or hypercapnia Status: Acute Assessment and Plan: Pulmonology consulted and appreciate input. Most likely multifactorial. Patient does have pulmonary hypertension, diastolic dysfunction and probable untreated/undiagnosed sleep apnea. Appears to have now stabilized. Will continue BiPAP with naps and at night. Continue oxygen during the day currently remaining at 2 L. Continue nebulizer treatments with Pulmozyme. Continue guaifenesin. Will continue to monitor. (3) HTN (hypertension): Qualifiers: Hypertension type: essential hypertension Qualified Code(s): I10 - Essential (primary) hypertension Code(s): I10 - Essential (primary) hypertension Status: Chronic Assessment and Plan: Blood pressure reviewed on 09/15/2019. Still with variability and elevated readings. Now on metoprolol and hydralazine. Diltiazem discontinued. Lisinopril started per nephrology. Will continue to monitor. Adjust treatment as needed. (4) Diastolic dysfunction: Code(s): I51.89 - Other ill-defined heart diseases Status: Acute Assessment and Plan: Known diastolic dysfunction. Echocardiogram with EF 65-70% in addition to the diastolic dysfunction as well as severe pulmonary hypertension. Now with hemodialysis as noted above. Remains on IV Bumex. Metolazone on hold per nephrology. Will continue to monitor. (5) Suspected sleep apnea: Code(s): R29.818 - Other symptoms and signs involving the nervous system Status: Acute Assessment and Plan: Suspected sleep apnea given all of her findings including severe pulmonary hypertension on echocardiogram. Continuing BiPAP as noted above. Will need eventual formal sleep study as an outpatient. 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 On Humalog 75/25 at home but not being given here. Glucose reviewed on 09/15/2019. Remains well controlled. Continue low-dose Lantus. Sliding scale insulin available as needed. Will continue to monitor. (7) C. difficile colitis: Code(s): A04.72 - Enterocolitis due to Clostrid
[2019-09-15 13:00] LABS: Glucose Point of Care 106 (65-105)
[2019-09-15 18:37] LABS: Hepatitis B Core Ab Total Nonreactive (Nonreactive)
[2019-09-15] MEDS: SENNA/DOCUSATE SODIUM TABLET 2 TAB PO (20:29)
[2019-09-15] MEDS: INSULIN GLARGINE (*BKC) 100 UNITS/ML 10 UNITS SUB-Q (20:36)
[2019-09-15 20:45] LABS: Glucose Point of Care 141 (65-105)
[2019-09-16] VITALS (28 sets, daily range): BP systolic 120–199; BP diastolic 40–84; PULSE 60–66; RESP 16–22; TEMP 36.1–37; O2SAT 90–98
[2019-09-16] MEDS: LEVALBUTEROL NEB 1.25 MG/3 ML 0.63 MG INHALATION ×2 (02:47→19:56)
[2019-09-16] MEDS: IPRATROPIUM BR 0.02% INH SOLN 0.5 MG/2.5 ML VIAL INHALATION ×2 (02:48→19:56)
[2019-09-16 03:48] LABS: Glucose Point of Care 101 (65-105)
[2019-09-16 05:35] LABS: Basophils Absolute Auto 0.1 K/mm3 (0.0-0.1); Basophils Percent Auto 0.7 % (0.2-1.2); Eosinophils Absolute Auto 0.1 K/mm3 (0-0.3); Eosinophils Percent Auto 1.9 % (0-4.4); Hematocrit 28.4 % (37.0-47.0); Hemoglobin 8.6 g/dL (12.0-15.0); Immature Granulocyte Absolute 0.15 K/mm3 (0.00-0.031); Immature Granulocyte Percent A 2.1 % (0-0.5); Immature Platelet Fraction Pct 3.9 % (0.9-11.2); Lymphocytes Absolute Auto 1.98 K/mm3 (0.9-3.2); Lymphocytes Percent Auto 27.1 % (18.3-44.2); Mean Corpuscular HGB Conc 30.3 g/dl (32-36); Mean Corpuscular Hemoglobin 28.1 pg (26-34); Mean Corpuscular Volume 92.8 fl (80-100); Mean Platelet Volume 10.8 fl (7.4-10.4); Monocytes Absolute Auto 0.8 K/mm3 (0.1-0.6); Monocytes Percent Auto 11.2 % (2.6-8.5); Neutrophils Absolute Auto 4.2 K/mm3 (1.3-6.7); Platelet Count Result 138 k/mm3 (150-375); Red Blood Count 3.06 M/mm3 (4.2-5.4); Red Cell Distribution Width 15.5 % (11.5-14.5); White Blood Count 7.3 K/mm3 (4.5-10.0)
[2019-09-16 05:36] LABS: Albumin Level 3.1 g/dL (3.5-5.1); Blood Urea Nitrogen 32 mg/dL (7-17); Calcium 8.5 mg/dL (8.4-10.2); Carbon Dioxide 31 mmol/L (22-30); Chloride 98 mmol/L (98-107); Estimated CRCL calculation 18 ml/min; Estimated Glomerular Filt Rate 14; Glucose 91 mg/dL (65-105); Phosphorus 4.2 mg/dL (2.5-4.5); Potassium 4.1 mmol/L (3.4-5.0); Sodium 133 mmol/L (137-145)
[2019-09-16] MEDS: hydrALAZINE HCL 50 MG TABLET PO ×3 (06:16→21:05)
[2019-09-16] MEDS: ONDANSETRON INJ 4 MG/2 ML VIAL IV PUSH ×3 (08:28→17:38)
[2019-09-16 09:18] LABS: Glucose Point of Care 86 (65-105)
--- NOTE | 2019-09-16 10:07 | PCPTNOTE ---
Attempted PT reeval. Pt gone to dialysis. Will try again at later time.
--- NOTE | 2019-09-16 10:51 | PCOTNOTE ---
Attempted to see pt for skilled OT treatment, pt was out of room for dialysis.
--- NOTE | 2019-09-16 11:56 | PM.IMPN ---
Progress Note: A&P Assessment and Plan (1) Chronic kidney disease, stage IV (severe): Code(s): N18.4 - Chronic kidney disease, stage 4 (severe) Status: Chronic Assessment and Plan: Nephrology consulted and appreciate input. With creatinine remaining elevated, low urine output, fluid overload and patient remaining drowsy, decision was made to start hemodialysis. Tunneled dialysis catheter placed on 09/13/[address] Sibley. Had 1st session of hemodialysis on 09/13/2019 with 2nd on 09/14/2019. Creatinine 3.30 today. Completing hemodialysis again today. Discussed with Dr. Tang today. Not clear if nausea is kidney/hemodialysis related. Care coordination making arrangements for outpatient hemodialysis. Continue PT/OT. Has been accepted with insurance authorization in place to go to [facility]. Hopeful discharge this week. (2) Respiratory failure: Qualifiers: Chronicity: acute on chronic Respiratory failure complication: unspecified whether with hypoxia or hypercapnia Qualified Code(s): J96.20 - Acute and chronic respiratory failure, unspecified whether with hypoxia or hypercapnia Code(s): J96.90 - Respiratory failure, unspecified, unspecified whether with hypoxia or hypercapnia Status: Acute Assessment and Plan: Pulmonology consulted and appreciate input. Most likely multifactorial. Patient does have pulmonary hypertension, diastolic dysfunction and probable untreated/undiagnosed sleep apnea. Now stable. Will continue BiPAP with naps and at night. Continue oxygen during the day remaining at 2 L. Continue nebulizer treatments with Pulmozyme. Continue guaifenesin. Will continue to monitor. (3) HTN (hypertension): Qualifiers: Hypertension type: essential hypertension Qualified Code(s): I10 - Essential (primary) hypertension Code(s): I10 - Essential (primary) hypertension Status: Chronic Assessment and Plan: Blood pressure reviewed on 09/16/2019. Acceptable readings at this time. Continue metoprolol, lisinopril and hydralazine. Diltiazem discontinued. Will continue to monitor. Adjust treatment as needed. (4) Diastolic dysfunction: Code(s): I51.89 - Other ill-defined heart diseases Status: Acute Assessment and Plan: Known diastolic dysfunction. Echocardiogram with EF 65-70% in addition to the diastolic dysfunction as well as severe pulmonary hypertension. Now with hemodialysis as noted above. On IV Bumex but probably will be discontinued after discussion with nephrology today. Metolazone also on hold per nephrology and anticipate discontinuation. Will continue to monitor. (5) Suspected sleep apnea: Code(s): R29.818 - Other symptoms and signs involving the nervous system Status: Acute Assessment and Plan: Suspected sleep apnea given all of her findings including severe pulmonary hypertension on echocardiogram. Continuing BiPAP as noted above. Will need eventual formal sleep study as an outpatient. (6) Diabetes mellitus: Qualifiers: Chronic kidney disease stage: stage 4 (severe) Diabetes mellitus complication detail: with chronic kidney disease Diabetes mellitus complication status: with kidney complications Diabetes mellitus long term care phlebotomist insulin use: with long term care phlebotomist use Diabetes mellitus type: type 2 Qualified Code(s): E11.22 - Type 2 diabetes mellitus with diabetic chronic kidney disease; N18.4 - Chronic kidney disease, stage 4 (severe); Z79.4 - emt intermediate (current) use of insulin Code(s): E11.9 - Type 2 diabetes mellitus without complications Status: Chronic Assessment and Plan: Hemoglobin A1c 6.1. On Humalog 75/25 at home but not being given here. Glucose reviewed on 09/16/2019 and controlled. Continue low-dose Lantus. Sliding scale insulin available as needed. Will continue to monitor. (7) C. difficile colitis: Code(s): A04.72 - Enterocolitis due
[2019-09-16] MEDS: ENOXAPARIN 30 MG/0.3 ML SYRINGE SUB-Q (12:48)
[2019-09-16] MEDS: FERROUS SULFATE 324 MG TABLET PO (12:49)
[2019-09-16] MEDS: lisinopriL 20 MG TABLET PO (12:49)
[2019-09-16] MEDS: ASPIRIN 81 MG ENTERIC TABLET PO (12:49)
[2019-09-16] MEDS: ACIDOPHILUS/BULGARICUS CHEWABLE TABLET 1 TABLET PO ×3 (12:49→21:06)
[2019-09-16] MEDS: METOPROLOL TARTRATE 50 MG TAB 100 MG PO ×2 (12:49→21:05)
[2019-09-16] MEDS: FAMOTIDINE 20 MG/2 ML VIAL IV PUSH ×2 (12:50→21:05)
[2019-09-16] MEDS: TOLNAFTATE 1% POWDER 45 GM BTL 1 APPLIC TOPICAL ×2 (12:50→21:07)
[2019-09-16] MEDS: SIMVASTATIN 20 MG TABLET 40 MG PO (12:50)
[2019-09-16] MEDS: COLLAGENASE OINT 30 GM TUBE 1 APPLIC TOPICAL (12:51)
[2019-09-16] MEDS: BUMETANIDE INJ 2.5 MG/10 ML VIAL 2 MG IVPB ×2 (12:51→16:20)
--- NOTE | 2019-09-16 12:57 | PM.PNNEP ---
Progress Note: A&P Assessment and Plan (1) JESSICA (acute kidney injury): Code(s): N17.9 - Acute kidney failure, unspecified Status: Acute Assessment and Plan: presumably due to acute illness, IV diuretics, pre-renal factors (from diarrhea), and infection (C.diff + Citrobacter UTI) hemodialysis today as she does still make some urine, will continue diuretics but switch to oral follow trend of UOP and creatinine on the possibility of renal recovery (2) Chronic kidney disease, stage IV (severe): Code(s): N18.4 - Chronic kidney disease, stage 4 (severe) Status: Chronic Assessment and Plan: baseline creatinine ~ 1.8 - 2.2mg/dl etiology due to hypertension, diabetes, and vascular disease (3) Acute respiratory failure with hypoxia: Code(s): J96.01 - Acute respiratory failure with hypoxia Status: Acute Assessment and Plan: continue fluid removal with diuresis and ultrafiltration/dialysis BiPAP in evening and PRN supplemental oxygen as needed (4) Colitis: Code(s): K52.9 - Noninfective gastroenteritis and colitis, unspecified Status: Acute Assessment and Plan: diarrhea better. C. diff is resolved (5) UTI (urinary tract infection): Qualifiers: Urinary tract infection type: site unspecified Hematuria presence: without hematuria Qualified Code(s): N39.0 - Urinary tract infection, site not specified Code(s): N39.0 - Urinary tract infection, site not specified Status: Resolved Assessment and Plan: completed course of antibiotics (6) HTN (hypertension): Qualifiers: Hypertension type: essential hypertension Qualified Code(s): I10 - Essential (primary) hypertension Code(s): I10 - Essential (primary) hypertension Status: Chronic Assessment and Plan: BP seems reasonable at this time continue current medications continue to remove fluid with dialysis. (7) Heel ulcer: Qualifiers: Laterality: right Non-pressure ulcer stage: limited to breakdown of skin Qualified Code(s): L97.411 - Non-pressure chronic ulcer of right heel and midfoot limited to breakdown of skin Code(s): L97.409 - Non-pressure chronic ulcer of unspecified heel and midfoot with unspecified severity Status: Acute Assessment and Plan: no apparent active infection continue local wound care Will continue to follow. Subjective Date/time seen: 09/16/19 12:57 Chart/Interim reviewed since last seen -- tolerating dialysis at the time of my visit (seen on HD at ~ 11::55AM); major complaint is that of nausea/vomiting all the time per patient. Exam Narrative: Exam Narrative: General: WD/WN female in NAD Heart: normal S1 and S2; no rub or gallop Lungs: clear anteriorly Abdomen: soft, nontender, +BS Extremities: 1 - 2+ edema Skin: chronic venous stasis changes noted Objective Data Vital Signs Vital Signs: Vital Signs Temp Pulse Resp BP Pulse Ox 09/16/19 12:10 36.4 C 65 18 153/71 H 09/16/19 12:05 65 132/65 09/16/19 12:00 64 129/63 09/16/19 11:45 65 135/66 09/16/19 11:30 65 125/61 09/16/19 11:15 62 137/69 09/16/19 11:00 61 148/67 H 09/16/19 10:45 65 120/66 09/16/19 10:31 64 151/69 H 09/16/19 10:15 61 135/61 09/16/19 10:00 63 152/69 H 09/16/19 09:30 64 161/73 H 09/16/19 09:15 63 175/80 H 09/16/19 09:00 64 197/84 H 09/16/19 08:47 36.6 C 65 18 199/81 H 09/16/19 06:00 36.1 C L 64 16 157/58 H 90 09/16/19 03:02 60 16 09/16/19 02:52 61 16 09/16/19 02:00 36.2 C L 66 22 H 161/67 H 95 09/15/19 22:25 67 18 91 09/15/19 22:00 36.3 C L 67 24 H 162/55 H 91 09/15/19 20:56 65 16 09/15/19 20:44 93 09/15/19 20:40 66 16 09/15/19 20:30 67 09/15/19 14:00 36.9 C 60 16 140/55 L 94 09/15/19 13:43 64 16 09/15/19 13:33 76 16
[2019-09-16 13:35] LABS: Glucose Point of Care 95 (65-105)
--- NOTE | 2019-09-16 13:47 | PCOTNOTE ---
Attempted to see patient this PM, however, patient requested therapist come back later as she was still finishing lunch. Will attempt later if time permits.
--- NOTE | 2019-09-16 14:32 | PCPTNOTE ---
Attempted PT treatment. Zara CHAPMAN stated not to see pt as she just fell asleep. Will try again tomorrow.
[2019-09-16 18:12] LABS: Glucose Point of Care 104 (65-105)
[2019-09-16] MEDS: DORNASE ALFA INH SOLN 1 MG/ML 2.5 ML AMP 2.5 MG INHALATION (19:56)
[2019-09-16] MEDS: SENNA/DOCUSATE SODIUM TABLET 2 TAB PO (21:06)
[2019-09-17] VITALS (17 sets, daily range): BP systolic 118–157; BP diastolic 41–58; PULSE 55–77; RESP 15–20; TEMP 36–36.4; O2SAT 95–98
[2019-09-17] MEDS: LEVALBUTEROL NEB 1.25 MG/3 ML 0.63 MG INHALATION ×3 (01:58→19:53)
[2019-09-17] MEDS: IPRATROPIUM BR 0.02% INH SOLN 0.5 MG/2.5 ML VIAL INHALATION ×3 (01:58→19:53)
[2019-09-17 04:06] LABS: Glucose Point of Care 143 (65-105)
[2019-09-17 06:31] LABS: Albumin Level 2.9 g/dL (3.5-5.1); Blood Urea Nitrogen 21 mg/dL (7-17); Calcium 8.2 mg/dL (8.4-10.2); Carbon Dioxide 30 mmol/L (22-30); Chloride 99 mmol/L (98-107); Estimated CRCL calculation 19 ml/min; Estimated Glomerular Filt Rate 15; Glucose 95 mg/dL (65-105); Phosphorus 4.8 mg/dL (2.5-4.5); Potassium 4.5 mmol/L (3.4-5.0); Sodium 131 mmol/L (137-145)
[2019-09-17] MEDS: hydrALAZINE HCL 50 MG TABLET PO ×3 (06:32→21:19)
[2019-09-17] MEDS: ONDANSETRON INJ 4 MG/2 ML VIAL IV PUSH (07:40)
[2019-09-17] MEDS: ACIDOPHILUS/BULGARICUS CHEWABLE TABLET 1 TABLET PO ×4 (08:44→21:18)
[2019-09-17] MEDS: METOPROLOL TARTRATE 50 MG TAB 100 MG PO ×2 (08:44→21:19)
[2019-09-17] MEDS: SIMVASTATIN 20 MG TABLET 40 MG PO (08:44)
[2019-09-17] MEDS: FERROUS SULFATE 324 MG TABLET PO (08:44)
[2019-09-17] MEDS: FAMOTIDINE 20 MG/2 ML VIAL IV PUSH (08:45)
[2019-09-17] MEDS: ENOXAPARIN 30 MG/0.3 ML SYRINGE SUB-Q (08:45)
[2019-09-17] MEDS: BUMETANIDE 1 MG TABLET 2 MG PO ×2 (08:46→16:39)
[2019-09-17] MEDS: lisinopriL 20 MG TABLET PO (08:46)
[2019-09-17] MEDS: ASPIRIN 81 MG ENTERIC TABLET PO (08:46)
[2019-09-17] MEDS: TOLNAFTATE 1% POWDER 45 GM BTL 1 APPLIC TOPICAL ×2 (08:47→21:19)
[2019-09-17] MEDS: COLLAGENASE OINT 30 GM TUBE 1 APPLIC TOPICAL (08:47)
[2019-09-17 09:26] LABS: Glucose Point of Care 109 (65-105)
[2019-09-17] MEDS: PROMETHAZINE HCL 25 MG/ML AMPUL 12.5 MG IV PUSH (09:46)
--- NOTE | 2019-09-17 10:41 | PM.PNNEP ---
Progress Note: A&P Assessment and Plan (1) JESSICA (acute kidney injury): Code(s): N17.9 - Acute kidney failure, unspecified Status: Acute Assessment and Plan: presumably due to acute illness, IV diuretics, pre-renal factors (from diarrhea), and infection (C.diff + Citrobacter UTI) hemodialysis yesterday and plan again tomorrow as she does still make some urine, will continue diuretics but switched to oral today follow trend of UOP and creatinine on the possibility of renal recovery (2) Chronic kidney disease, stage IV (severe): Code(s): N18.4 - Chronic kidney disease, stage 4 (severe) Status: Chronic Assessment and Plan: baseline creatinine ~ 1.8 - 2.2mg/dl etiology due to hypertension, diabetes, and vascular disease (3) Acute respiratory failure with hypoxia: Code(s): J96.01 - Acute respiratory failure with hypoxia Status: Acute Assessment and Plan: continue fluid removal with diuresis and ultrafiltration/dialysis BiPAP in evening and PRN supplemental oxygen as needed (4) Colitis: Code(s): K52.9 - Noninfective gastroenteritis and colitis, unspecified Status: Acute Assessment and Plan: diarrhea better. C. diff is resolved (5) UTI (urinary tract infection): Qualifiers: Hematuria presence: without hematuria Urinary tract infection type: site unspecified Qualified Code(s): N39.0 - Urinary tract infection, site not specified Code(s): N39.0 - Urinary tract infection, site not specified Status: Resolved Assessment and Plan: completed course of antibiotics (6) HTN (hypertension): Qualifiers: Hypertension type: essential hypertension Qualified Code(s): I10 - Essential (primary) hypertension Code(s): I10 - Essential (primary) hypertension Status: Chronic Assessment and Plan: BP seems reasonable at this time continue current medications continue to remove fluid with dialysis. (7) Heel ulcer: Qualifiers: Laterality: right Non-pressure ulcer stage: limited to breakdown of skin Qualified Code(s): L97.411 - Non-pressure chronic ulcer of right heel and midfoot limited to breakdown of skin Code(s): L97.409 - Non-pressure chronic ulcer of unspecified heel and midfoot with unspecified severity Status: Acute Assessment and Plan: no apparent active infection continue local wound care Will continue to follow. Subjective Date/time seen: 09/17/19 10:41 Tolerated dialysis yesterday without any acute issues; continues to have on/off nausea/vomiting; no acute distress voiced at the time of my visit. Exam Narrative: Exam Narrative: General: WD/WN female in NAD Heart: normal S1 and S2; no rub or gallop Lungs: clear anteriorly Abdomen: soft, nontender, +BS Extremities: no cyanosis or clubbing; 1 - 2+ edema Skin: chronic venous stasis changes noted Objective Data Vital Signs Vital Signs: Vital Signs Temp Pulse Resp BP Pulse Ox 09/17/19 10:00 36.1 C L 62 18 138/54 L 97 09/17/19 08:00 63 154/58 H 09/17/19 06:00 36.3 C L 56 L 16 118/41 L 98 09/17/19 02:14 60 16 09/17/19 02:12 55 L 15 96 09/17/19 02:00 36.2 C L 59 L 20 157/54 H 98 09/17/19 01:59 56 L 15 09/16/19 22:03 60 17 94 09/16/19 22:00 36.2 C L 60 16 143/50 H 98 09/16/19 21:05 64 09/16/19 20:04 64 16 09/16/19 20:00 94 09/16/19 19:57 60 16 09/16/19 18:00 36.1 C L 60 18 145/58 H 97 09/16/19 14:00 36.1 C L 65 18 121/40 L 97 09/16/19 12:10 36.4 C 65 18 153/71 H 09/16/19 12:05 65 132/65 09/16/19 12:00 64 129/63 09/16/19 11:45 65 135/66 09/16/19 11:30 65 125/61 09/16/19 11:15 62 137/69 09/16/19 11:00 61 148/67 H 09/16/19 10:45 65 120/66 Intake/Output Intake/Output: Intake & Output 09/14/19 09/15/19 09/16/19 09/17/19 23:59 23:59 23
--- NOTE | 2019-09-17 11:41 | PM.IMPN ---
Progress Note: A&P Assessment and Plan (1) Chronic kidney disease, stage IV (severe): Code(s): N18.4 - Chronic kidney disease, stage 4 (severe) Status: Chronic Assessment and Plan: Nephrology consulted and appreciate input. With creatinine remaining elevated, low urine output, fluid overload and patient remaining drowsy, decision was made to start hemodialysis. Tunneled dialysis catheter placed on 09/13/[address] Sibley. Had 1st session of hemodialysis on 09/13/2019 with subsequent sessions on 09/14/2019 and 09/16/2019. Creatinine 3.00 today. Continue hemodialysis per Nephrology. Care coordination has made arrangements for outpatient hemodialysis after discharge. Nausea/dry heaves appears to be more related to bowel issues with KUB this morning showing gas in colon but no obstruction. Will give Dulcolax suppository. IV Phenergan/Zofran both available as needed for nausea/vomiting. Continue PT/OT. Does have acceptance with insurance authorization in place to go to [facility] at discharge. Hopeful discharge in next few days. (2) Respiratory failure: Qualifiers: Chronicity: acute on chronic Respiratory failure complication: unspecified whether with hypoxia or hypercapnia Qualified Code(s): J96.20 - Acute and chronic respiratory failure, unspecified whether with hypoxia or hypercapnia Code(s): J96.90 - Respiratory failure, unspecified, unspecified whether with hypoxia or hypercapnia Status: Acute Assessment and Plan: Pulmonology consulted and appreciate input. Most likely multifactorial. Patient does have pulmonary hypertension, diastolic dysfunction and probable untreated/undiagnosed sleep apnea. Patient is now remaining stable maintaining oxygen saturation with 2 L oxygen during the day and use of BiPAP at night and with naps. Continue nebulizer treatments including Pulmozyme. Continue guaifenesin. Will continue to monitor. (3) HTN (hypertension): Qualifiers: Hypertension type: essential hypertension Qualified Code(s): I10 - Essential (primary) hypertension Code(s): I10 - Essential (primary) hypertension Status: Chronic Assessment and Plan: Blood pressure reviewed on 09/17/2019. Variability but now with generally acceptable readings. Continue metoprolol, lisinopril and hydralazine. Also on oral Bumex. Diltiazem discontinued. Will continue to monitor. Adjust treatment as needed. (4) Diastolic dysfunction: Code(s): I51.89 - Other ill-defined heart diseases Status: Acute Assessment and Plan: Known diastolic dysfunction. Echocardiogram with EF 65-70% in addition to the diastolic dysfunction as well as severe pulmonary hypertension. Diastolic CHF ruled out with fluid overload more likely result of progressive worsening of kidney function. Fluid balance now improved with hemodialysis. Transitioned back to oral Bumex by Nephrology this morning. Metolazone remains on hold per Nephrology. Continue to monitor. (5) Suspected sleep apnea: Code(s): R29.818 - Other symptoms and signs involving the nervous system Status: Acute Assessment and Plan: Suspected sleep apnea given all of her findings including severe pulmonary hypertension on echocardiogram. Continuing BiPAP as noted above. Will need eventual formal sleep study as an outpatient. (6) Diabetes mellitus: Qualifiers: Chronic kidney disease stage: stage 4 (severe) Diabetes mellitus complication detail: with chronic kidney disease Diabetes mellitus complication status: with kidney complications Diabetes mellitus longterm insulin use: with long chain beamer use Diabetes mellitus type: type 2 Qualified Code(s): E11.22 - Type 2 diabetes mellitus with diabetic chronic kidney disease; N18.4 - Chronic kidney disease, stage 4 (severe); Z79.4 - director long term care (current) use of insulin Code(s): E11.9 - Type 2 diabetes mellitus without complicati
--- NOTE | 2019-09-17 12:47 | WPDCDIQUERY2 ---
CDI Query Clarification Request - Diastolic dysfunction: I51.89 - Other ill-defined heart diseases Status: Acute has been documented -Dr Shepard documented, Interval history: 69 y/o female admitted with acute hypoxemic and hypercapnic respiratory failure due to diastolic CHF. Please further clarify if Diastolic CHF was ruled in or ruled out. Also if ruled in, please specify acuity. <Kirsten Howell RN - Last Filed: 09/17/19 12:50>
[2019-09-17] MEDS: BISACODYL 10 MG SUPPOSITORY RECTAL (14:35)
[2019-09-17 17:56] LABS: Glucose Point of Care 114 (65-105)
[2019-09-17 18:14] LABS: Glucose Point of Care 165 (65-105)
[2019-09-17] MEDS: DORNASE ALFA INH SOLN 1 MG/ML 2.5 ML AMP 2.5 MG INHALATION (19:53)
[2019-09-17 20:19] LABS: Glucose Point of Care 134 (65-105)
[2019-09-17] MEDS: SENNA/DOCUSATE SODIUM TABLET 2 TAB PO (21:18)
[2019-09-17] MEDS: INSULIN GLARGINE (*BKC) 100 UNITS/ML 10 UNITS SUB-Q (21:19)
[2019-09-17] MEDS: FAMOTIDINE 20 MG TABLET PO (21:19)
--- NOTE | 2019-09-17 21:28 | PC.NURSE ---
Computer malfunctioned and was unable to save the medication from scanning. Had to manually administer the medications due to throwing away the pill containers.
--- NOTE | 2019-09-17 23:23 | PM.PNPUL ---
Progress Note: A&P Assessment and Plan (1) Respiratory failure, [id number]: Code(s): J96.20 - Acute and chronic respiratory failure, unspecified whether with hypoxia or hypercapnia Status: Acute Assessment and Plan: pCO2 was elevated in the 60+ range Sep 02, improved on September 03. She likely had high pCO2 again today as she improved with placement of BiPAP. Would like to keep FiO2 as low as possible. on 60% and biPAP 14/10 saturation was 99%. (2) Pulmonary hypertension: Code(s): I27.20 - Pulmonary hypertension, unspecified Status: Acute (3) Suspected sleep apnea: Code(s): R29.818 - Other symptoms and signs involving the nervous system Status: Acute Assessment and Plan: - needs outpatient sleep study to confirm and titrate CPAP therapy - continue current BIPAP settings; would benefot from a sleep study as an out-patient; may have to delay until she is stable and sleep lab operational (4) Obesity: Code(s): E66.9 - Obesity, unspecified Status: Acute Subjective Date/time seen: 09/17/19 23:23 Interval history: Awake and alert. She uses BiPAP off and on. Review of Systems Review of Systems: All systems reviewed & are unremarkable except as noted in HPI and below Exam Const: General: comfortable and no acute distress Other: Nausesous this morning HENMT: Mouth: Yes moist mucous membranes and Yes Abnormal oral and palatal mucosa present Neck: Neck: supple and no JVD Resp: Auscultation: clear to auscultation bilaterally, no crackles, no rhonchi, no wheezes and diminished lung sounds Cardio: Rate: regular rate Rhythm: regular rhythm Heart sounds: no murmurs GI: Auscultation: normal bowel sounds Skin: General skin exam: normal color and no rashes or lesions noted Neuro: Cognition (Neuro): normal cognition Speech: normal speech Extrem: General: normal to inspection, edema and pedal edema Objective Data Vital Signs Vital Signs: Vital Signs - 24 hr 09/17/19 01:59 09/17/19 02:00 09/17/19 02:12 Temperature 36.2 C L Pulse Rate 56 L 59 L 55 L Respiratory Rate 15 20 15 Blood Pressure 157/54 H Pulse Oximetry 98 96 09/17/19 02:14 09/17/19 06:00 09/17/19 08:00 Temperature 36.3 C L Pulse Rate 60 56 L 63 Respiratory Rate 16 16 Blood Pressure 118/41 L 154/58 H Pulse Oximetry 98 09/17/19 10:00 09/17/19 14:00 09/17/19 14:16 Temperature 36.1 C L 36.1 C L Pulse Rate 62 61 Respiratory Rate 18 20 Blood Pressure 138/54 L 118/49 L Pulse Oximetry 97 96 95 09/17/19 14:17 09/17/19 14:25 09/17/19 18:00 Temperature 36.4 C Pulse Rate 61 77 71 Respiratory Rate 18 18 18 Blood Pressure 147/52 H Pulse Oximetry 97 09/17/19 19:54 09/17/19 19:57 09/17/19 20:01 Temperature Pulse Rate 67 70 Respiratory Rate 18 18 Blood Pressure Pulse Oximetry 95 09/17/19 22:00 09/17/19 22:10 Temperature 36.0 C L Pulse Rate 72 61 Respiratory Rate 20 18 Blood Pressure 133/50 L Pulse Oximetry 98 95 Intake/Output Intake/Output: Intake & Output 09/14/19 09/15/19 09/16/19 09/17/19 23:59 23:59 23:59 23:59 Intake Total 6205 463 0887 995 Output Total 3300 800 4300 200 Balance -1870 130 -3220 795 Meds/Results Medications: Active Medications Generic Name Dose Route Start Last Admin Trade Name Freq PRN Reason Stop Dose Admin Acetaminophen 650 mg 09/02/19 09:15 09/08/19 21:26 Tylenol Tablet PO 650 mg Q4H PRN Administration Abdominal Cramping, Pain 1-3 Hydrocodone Bitart/Acetaminophen 1 tab 09/13/19 12:47 [place] 5-325 Mg PO Q4H PRN Pain Rated 4-6 Alprazolam 0.5 mg 09/09/19 17:01 09/11/19 12:38 Xanax PO 0.5 mg TID PRN Administration Anxiety Aspirin 81 mg 09/01/19 09:00 09/17/19 08:46 Aspirin Ec PO 81 mg DAILY DEJON Administration Benzocaine 1 lozenge 09/02/19 09:15 Chloraseptic Lozenge PO PRN PRN Sore Throat Bumetanide 2 mg 09/17/19
[2019-09-18] VITALS (25 sets, daily range): BP systolic 102–182; BP diastolic 38–76; PULSE 60–93; RESP 16–20; TEMP 36.4–37.1; O2SAT 91–100
[2019-09-18] MEDS: IPRATROPIUM BR 0.02% INH SOLN 0.5 MG/2.5 ML VIAL INHALATION ×4 (02:02→14:04)
[2019-09-18] MEDS: LEVALBUTEROL NEB 1.25 MG/3 ML 0.63 MG INHALATION ×4 (02:03→14:04)
[2019-09-18] MEDS: hydrALAZINE HCL 50 MG TABLET PO (05:20)
[2019-09-18] MEDS: ACETAMINOPHEN 325 MG TABLET 650 MG PO (05:21)
[2019-09-18 05:46] LABS: Blood Urea Nitrogen 29 mg/dL (7-17); Carbon Dioxide 29 mmol/L (22-30); Chloride 97 mmol/L (98-107); Estimated CRCL calculation 14 ml/min; Estimated Glomerular Filt Rate 11; Glucose 102 mg/dL (65-105); Phosphorus 5.4 mg/dL (2.5-4.5); Potassium 4.2 mmol/L (3.4-5.0); Sodium 133 mmol/L (137-145)
[2019-09-18 07:34] LABS: Glucose Point of Care 93 (65-105)
[2019-09-18] MEDS: FAMOTIDINE 20 MG TABLET PO (08:21)
[2019-09-18] MEDS: ACIDOPHILUS/BULGARICUS CHEWABLE TABLET 1 TABLET PO ×2 (08:21→12:14)
[2019-09-18] MEDS: BUMETANIDE 1 MG TABLET 2 MG PO (08:21)
[2019-09-18] MEDS: ONDANSETRON INJ 4 MG/2 ML VIAL IV PUSH (08:21)
[2019-09-18] MEDS: ENOXAPARIN 30 MG/0.3 ML SYRINGE SUB-Q (08:21)
[2019-09-18] MEDS: FERROUS SULFATE 324 MG TABLET PO (08:21)
[2019-09-18] MEDS: ASPIRIN 81 MG ENTERIC TABLET PO (08:21)
[2019-09-18] MEDS: SIMVASTATIN 20 MG TABLET 40 MG PO (08:21)
[2019-09-18] MEDS: TOLNAFTATE 1% POWDER 45 GM BTL 1 APPLIC TOPICAL (08:22)
[2019-09-18] MEDS: COLLAGENASE OINT 30 GM TUBE 1 APPLIC TOPICAL (08:22)
[2019-09-18] MEDS: DORNASE ALFA INH SOLN 1 MG/ML 2.5 ML AMP 2.5 MG INHALATION ×2 (08:44→08:46)
[2019-09-18 11:40] LABS: Glucose Point of Care 124 (65-105)
--- NOTE | 2019-09-18 11:50 | PM.DS ---
DS: Diagnosis Admitting Diagnosis Admitting Diagnosis: Noninfective gastroenteritis and colitis, unspecified DS: Summary Time Spent with Patient Time attestation: Total time spent providing and/or coordinating discharge services: DS: Data Data Completed and Pending Labs on day of discharge: Labs from last 24 hours 09/18/19 09/18/19 09/18/19 11:37 07:22 05:08 Sodium 133 L Potassium 4.2 Chloride 97 L Carbon Dioxide 29 BUN 29 H Creatinine 4.10 H Estim Creat Clear Calc 14 Estimated GFR 11 L Glucose 102 POC Capillary Glucose 124 H 93 Calcium 8.0 L Phosphorus 5.4 H Albumin 3.0 L 09/17/19 09/17/19 09/17/19 20:12 17:53 14:18 Sodium Potassium Chloride Carbon Dioxide BUN Creatinine Estim Creat Clear Calc Estimated GFR Glucose POC Capillary Glucose 134 H 114 H 165 H Calcium Phosphorus Albumin Discharge Plan Discharge Attending physician on discharge: Amelia Nguyen Consulting providers: Eryn Jones ; Shaila Tang ; Chilo Sibley Discharging Clinician: Amelia Nguyen Anticipated Discharge Date/Time: 09/18/19 14:00 Patient Disposition: SNF Activity: as tolerated Diet: diabetic and low sodium Discharge Instructions: Per Care Coordination: [facility] will continue services at discharge. [facility] will follow for director of career services. [facility] can be contacted at [phone]. bipap at night, oxygen 2 liters outpatient dialysis sleep study on discharge Patient Instructions: Antibiotic Form, Pain Management (DC), C Diff (Clostridium Difficile) Infection (IP), Catheter-associated Urinary Tract Infection (GEN) Stand Alone Forms: General Discharge Information Follow-up/Referrals: Eryn Jones MD [Physician] - Shaila Tang MD [Physician] - Evangelist Parra MD [Physician] - Discharge Medications: New hydrocodone-acetaminophen 5-325 mg Tablet 1 tab PO Q4H PRN (Reason: Pain Rated 4-6) Qty: 30 RF: 0 alprazolam 0.5 mg Tablet 0.5 mg PO TID PRN (Reason: Anxiety) Qty: 30 RF: 0 lisinopril 20 mg Tablet 20 mg PO QAM Qty: 30 RF: 0 bumetanide 1 mg Tablet 2 mg PO BID Qty: 60 RF: 0 famotidine 20 mg Tablet 20 mg PO Q12HR Qty: 60 RF: 0 hydralazine 50 mg Tablet 50 mg PO Q8HR Qty: 30 RF: 0 Lantus U-100 Insulin 100 unit/mL Solution 10 units subcut HS Qty: 1 RF: 0 (DME) Mepilex Border Sacrum 9.2 X 9.2 Bandage 1 ea topical Q72HR Qty: 30 RF: 0 sennosides-docusate sodium [Senokot-S] 8.6-50 mg Tablet 2 tab PO HS Qty: 30 RF: 0 Continued metoprolol tartrate 100 mg tablet 100 mg PO BID RF: 0 aspirin 81 mg tablet,delayed release (DR/EC) 81 mg PO DAILY RF: 0 ferrous sulfate 325 mg (65 mg iron) Tablet 324 mg PO DAILY Qty: 30 RF: 0 tolnaftate 1 % Powder 1 applic topical Q12HR Qty: 45 RF: 0 Santyl 250 unit/gram ointment 1 applic TOPICAL DAILY Qty: 30 RF: 2 simvastatin 40 mg tablet 40 mg PO DAILY Qty: 90 RF: 3 Discontinued alprazolam 0.5 mg tablet 0.5 mg PO TID RF: 0 bumetanide 1 mg tablet 1 mg PO DAILY RF: 0 Humalog Mix 75-25 KwikPen 100 unit/mL (75-25) Insulin Pen 90 unit SUBCUT QACDINNER RF: 0 Humalog Mix 75-25 KwikPen 100 unit/mL (75-25) Insulin Pen 80 unit SUBCUT QAM RF: 0 diltiazem HCl 90 mg tablet 180 mg BID RF: 0 Other Ambulatory Orders: Sleep Study (Routine) Timeframe: 1 Month Location: Determined by Patient Ordered By: Cande Tang Date of admission: 09/02/19 10:30 Primary Care Provider: Emily Trevino Admitting Provider: Bryan Newsome Attending physician on admission: Herminia Muller Condition: Stable
[2019-09-18] MEDS: PROMETHAZINE HCL 25 MG/ML AMPUL 12.5 MG IV PUSH (12:14)
--- NOTE | 2019-09-18 14:34 | PC.NURSE ---
To Dialysis per bed, IV intact.
--- NOTE | 2019-09-18 15:29 | PCDIET ---
Nutrition Follow-Up Complete: Suboptimal oral intake related to decreased appetite as evidenced by patient reports of eating only a few bites of meals and breakfast tray with minimal intake. Patient to consume 50% of meals or greater + supplements Goal: Goal met. Continue with current goal. Pt current nutrition is DBCC/2gm Na + Banatrol TID/ Ensure Compact TID. Nutrition recommendation: d/c compact TID due to improved intake Last recorded weight is 112.9 kg (steady from 114.9 on assessment). Bowel Motility: Normal BM on 24 Labs Reviewed:PO4 5.0, GFR 11, Glucose 124, Na 133, Alb 3.0 Meds Noted: Fe Lovenox Additional Notes: Pt possibly d/c to SNF today. Bowels now moving normally and PO intake 100% for last two meals. Wt has been steady. Recommend continued probiotic to support a healthy microbiome. Follow up every 7 days.
--- NOTE | 2019-09-18 16:34 | PM.PNNEP ---
Progress Note: A&P Assessment and Plan (1) JESSICA (acute kidney injury): Code(s): N17.9 - Acute kidney failure, unspecified Status: Acute Assessment and Plan: presumably due to acute illness, IV diuretics, pre-renal factors (from diarrhea), and infection (C.diff + Citrobacter UTI) hemodialysis today and continue M/W/F schedule as she does still make some urine, will continue diuretics (oral) follow trend of UOP and creatinine on the possibility of renal recovery (2) Chronic kidney disease, stage IV (severe): Code(s): N18.4 - Chronic kidney disease, stage 4 (severe) Status: Chronic Assessment and Plan: baseline creatinine ~ 1.8 - 2.2mg/dl etiology due to hypertension, diabetes, and vascular disease (3) Acute respiratory failure with hypoxia: Code(s): J96.01 - Acute respiratory failure with hypoxia Status: Acute Assessment and Plan: continue fluid removal with diuresis and ultrafiltration/dialysis BiPAP in evening and PRN supplemental oxygen as needed (4) Colitis: Code(s): K52.9 - Noninfective gastroenteritis and colitis, unspecified Status: Acute Assessment and Plan: diarrhea better. C. diff is resolved (5) UTI (urinary tract infection): Qualifiers: Urinary tract infection type: site unspecified Hematuria presence: without hematuria Qualified Code(s): N39.0 - Urinary tract infection, site not specified Code(s): N39.0 - Urinary tract infection, site not specified Status: Resolved Assessment and Plan: completed course of antibiotics (6) HTN (hypertension): Qualifiers: Hypertension type: essential hypertension Qualified Code(s): I10 - Essential (primary) hypertension Code(s): I10 - Essential (primary) hypertension Status: Chronic Assessment and Plan: BP seems reasonable at this time continue current medications continue to remove fluid with dialysis. (7) Heel ulcer: Qualifiers: Laterality: right Non-pressure ulcer stage: limited to breakdown of skin Qualified Code(s): L97.411 - Non-pressure chronic ulcer of right heel and midfoot limited to breakdown of skin Code(s): L97.409 - Non-pressure chronic ulcer of unspecified heel and midfoot with unspecified severity Status: Acute Assessment and Plan: no apparent active infection continue local wound care Will continue to follow - not opposed to discharge from renal perspective; I will follow her at her outpatient dialysis clinic/unit. Subjective Date/time seen: 09/18/19 16:34 Tolerating dialysis at the time of my visit (seen on HD at ~ 4:10PM); nausea and vomiting have subsided if not resolved; noted plans of discharge after dialysis today. Exam Narrative: Exam Narrative: General: WD/WN female in NAD Heart: normal S1 and S2; no rub or gallop Lungs: clear anteriorly Abdomen: soft, nontender, +BS Extremities: no cyanosis or clubbing; 1+ edema Skin: chronic venous stasis changes present Objective Data Vital Signs Vital Signs: Vital Signs Temp Pulse Resp BP Pulse Ox 09/18/19 16:30 91 127/58 L 09/18/19 16:15 89 102/50 L 09/18/19 16:00 89 107/53 L 09/18/19 15:45 90 123/61 09/18/19 15:30 92 123/63 09/18/19 15:15 91 136/64 09/18/19 15:00 89 156/72 H 09/18/19 14:45 89 182/76 H 09/18/19 14:38 37.1 C 93 16 167/76 H 09/18/19 14:15 72 16 09/18/19 14:06 68 16 09/18/19 14:00 36.4 C 72 19 135/46 L 94 09/18/19 10:00 36.5 C 68 17 137/38 L 91 09/18/19 08:46 66 16 95 09/18/19 05:53 36.6 C 67 20 134/48 L 99 09/18/19 02:09 64 16 09/18/19 02:06 60 20 97 09/18/19 02:03 60 20 09/18/19 02:00 36.6 C 60 20 148/59 H 100 09/17/19 22:10 61 18 95 09/17/19 22:00 36.0 C L 72 20 133/50 L 98 09/17/19 20:01 70 18 09/17/19 19:57 95 09/17/19 19:54 67 18
[2019-09-18 18:14] LABS: Glucose Point of Care 119 (65-105)
--- NOTE | 2019-09-21 15:32 | PM.DS ---
DS: Diagnosis Admitting Diagnosis Admitting Diagnosis: Noninfective gastroenteritis and colitis, unspecified Discharge Diagnosis (1) Chronic kidney disease, stage IV (severe): Code(s): N18.4 - Chronic kidney disease, stage 4 (severe) Status: Chronic Assessment and Plan: Nephrology consulted and appreciate input. With creatinine remaining elevated, low urine output, fluid overload and patient remaining drowsy, decision was made to start hemodialysis. Tunneled dialysis catheter placed on 09/13/[address] Sibley. Had 1st session of hemodialysis on 09/13/2019 with subsequent sessions on 09/14/2019 and 09/16/2019. Creatinine 3.00 today. Continue hemodialysis per Nephrology. Care coordination has made arrangements for outpatient hemodialysis after discharge. Pt is going to [facility]. (2) Respiratory failure: Qualifiers: Chronicity: acute on chronic Respiratory failure complication: unspecified whether with hypoxia or hypercapnia Qualified Code(s): J96.20 - Acute and chronic respiratory failure, unspecified whether with hypoxia or hypercapnia Code(s): J96.90 - Respiratory failure, unspecified, unspecified whether with hypoxia or hypercapnia Status: Acute Assessment and Plan: Pulmonology consulted and appreciate input. Most likely multifactorial. Patient does have pulmonary hypertension, diastolic dysfunction and probable untreated/undiagnosed sleep apnea. (3) HTN (hypertension): Qualifiers: Hypertension type: essential hypertension Qualified Code(s): I10 - Essential (primary) hypertension Code(s): I10 - Essential (primary) hypertension Status: Chronic Assessment and Plan: Blood pressure reviewed on 09/17/2019. Variability but now with generally acceptable readings. Continue metoprolol, lisinopril and hydralazine. Also on oral Bumex. Diltiazem discontinued. Will continue to monitor. Adjust treatment as needed. (4) Diastolic dysfunction: Code(s): I51.89 - Other ill-defined heart diseases Status: Acute Assessment and Plan: Known diastolic dysfunction. Echocardiogram with EF 65-70% in addition to the diastolic dysfunction as well as severe pulmonary hypertension. Diastolic CHF ruled out with fluid overload more likely result of progressive worsening of kidney function. back to oral Bumex by Nephrology this morning. Metolazone remains on hold per Nephrology. (5) Suspected sleep apnea: Code(s): R29.818 - Other symptoms and signs involving the nervous system Status: Acute Assessment and Plan: Suspected sleep apnea given all of her findings including severe pulmonary hypertension on echocardiogram. Continuing BiPAP as noted above. Will need eventual formal sleep study as an outpatient. 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 (7) C. difficile colitis: Code(s): A04.72 - Enterocolitis due to Clostridium difficile, not specified as recurrent Status: Resolved Assessment and Plan: Resolved with no further diarrhea. Completed 10 day course of oral vancomycin. was treated for cdiff. Continue probiotic and banatrol. Off isolation. (8) UTI (urinary tract infection): Qualifiers: Urinary tract infection type: site unspecified Hematuria presence: without hematuria
== END 2019-09-18 19:06 | DRG 371 ==
LOC: ANHED 19:50 → ANH2MED 19:57 → ANHIMU 09-03 22:40 → ANH2MED 09-09 07:01 → ANHIMU 09-19 09:50
PROVIDERS: Hospitalist; Internal Medicine Nephrology; Physician Assistant; Surgery; Admitting Provider Internal Medicine; Emergency Provider Emergency Medicine; PCP Family Medicine; Referring Provider Family Medicine; Visit Provider Family Medicine
PROC: 0JH63XZ Insertion of Tunneled Vascular Access Device into Chest Subcutaneous Tissue and Fascia, Percutaneous Approach (ICD-10-PCS; CPT 36908; principal; 2019-09-13 09:30)
DX: A04.72 Enterocolitis due to Clostridium difficile, not specified as recurrent (principal); J96.20 Acute and chronic respiratory failure, unspecified whether with hypoxia or hypercapnia; N18.6 End stage renal disease; I69.354 Hemiplegia and hemiparesis following cerebral infarction affecting left non-dominant side; L97.409 Non-pressure chronic ulcer of unspecified heel and midfoot with unspecified severity; I13.0 Hypertensive heart and chronic kidney disease with heart failure and stage 1 through stage 4 chronic kidney disease, or unspecified chronic kidney disease; I50.30 Unspecified diastolic (congestive) heart failure; Z68.41 Body mass index [BMI] 40.0-44.9, adult; N39.0 Urinary tract infection, site not specified; D64.9 Anemia, unspecified; E11.9 Type 2 diabetes mellitus without complications; I87.2 Venous insufficiency (chronic) (peripheral); E66.9 Obesity, unspecified; G47.33 Obstructive sleep apnea (adult) (pediatric); F41.9 Anxiety disorder, unspecified; D63.8 Anemia in other chronic diseases classified elsewhere
CPT/HCPCS: 36415; 36600; 51701; 70450; 70551; 71045; 71046; 74018; 74019; 74176; 77001; 78582; 80048; 80053; 80069; 81001; 81050; 82375; 82570; 82607; 82728; 82746; 82805; 83050; 83540; 83550; 83605; 83690; 83735; 84100; 84145; 84466; 84484; 85025; 85027; 85055; 85610; 85730; 86704; 86706; 86803; 87040; 87077; 87086; 87088; 87186; 87324; 87340; 93005; 93970; 94002; 94003; 94640; 94667; 94668; 96361; 96374; 96375; 96376; 97110; 97116; 97161; 97165; 97530; 97535; 99285; A9270; A9540; A9558; C1750; C8929; G0257; G0378; J0360; J0690; J0696; J1644; J1650; J1815; J2405; J2550; J2704; J7030; J7040; Q4081; Q9957

== ENCOUNTER 2019-09-27 12:03 | Inpatient (IN) | payer MEDICARE, SELFPAY ==
[2019-09-27] VITALS (12 sets, daily range): BP systolic 84–143; BP diastolic 49–73; PULSE 68–99; RESP 18–27; TEMP 37.1–37.9; O2SAT 97–100; BMI 37.0
--- NOTE | ~2019-09-27 | US_ITS ---
EXAMINATION: US venous doppler [facility] EXAM DATE: 10/12/2019 11:11 INDICATION: DVT. TECHNIQUE: Multiple grayscale, color flow and Doppler images of the left lower extremity deep venous system obtained and reviewed. Comparison is made to prior examination from 09/03/2019. FINDINGS: LEFT SIDE Common femoral: -------- Normal. Profunda femoral: ------- Normal. Femoral: Normal. Popliteal: Normal. Posterior tibial: ---------Partially thrombosed. Peroneal: Thrombosed. Gastrocnemius: Not visualized. Soleus: Not visualized. Greater saphenous: ----- Normal. Lesser saphenous: ------ Not visualized. IMPRESSION: 1. Positive for interval development of left calf DVT. I discussed positive DVT with charge nurse Melissa Bynum at 10/12/2019 11:19 CDT . Reviewed, dictated and finalized at location A.
--- NOTE | ~2019-09-27 | XR_ITS ---
EXAMINATION: XR chest 1V portable EXAM DATE: 10/02/2019 12:30 INDICATION: Shortness of breath. TECHNIQUE: Portable AP frontal chest x-ray was obtained. Comparison is made to prior examination from 09/27/2019. FINDINGS: There is cardiomegaly and pulmonary vascular congestion. There is indistinct reticulation w ith a bibasal predominance which may indicate pulmonary edema. Pneumonia also possible. Small bilater al pleural effusions. Some linear left-sided atelectasis. Right-sided double-lumen Camilo catheter i n position. There is aortic arterial sclerosis. Mild to moderate thoracolumbar scoliosis. There are b ramesh degenerative changes. Compared to 09/26, the findings suspicious for CHF exacerbation have developed. IMPRESSION: 1. Findings consistent with mild CHF exacerbation. 2. Uncomplicated pneumonia also possible. Reviewed, dictated and finalized at location B.
--- NOTE | ~2019-09-27 | CT_ITS ---
EXAMINATION: CT abdomen pelvis wo con DATE: 09/27/2019 14:35 INDICATION: Nausea, vomiting, diarrhea and fever. TECHNIQUE: Computed tomography (CT) of the abdomen and pelvis was performed without intravenous contr ast. Automated exposure control and iterative reconstruction technique were employed. The dose-length product was 1428.69 mGy-cm. COMPARISON: 08/31/2019 FINDINGS: Mild cardiomegaly. Atherosclerotic coronary artery calcifications. No pericardial effusion. Tip of a central venous catheter with the superior cavoatrial junction. Mild atelectasis in the bilateral lowe r lobes, left greater than right. Nodular liver surface consistent with cirrhosis. Phrygian cap at th e tip of the gallbladder fundus. Mild splenomegaly measuring 13.6 cm in maximal length. Multiple sple bhaskar calcifications consistent with old granulomatous disease. Pancreas and bilateral adrenal glands a re normal. Small amount of atherosclerotic calcification along the renal artery in the left kidney. A pproximately 1 cm low-attenuation cyst at the left kidney. Right kidney is unremarkable. No urolithia sis or hydronephrosis. Diffuse colonic wall thickening including haustral fold thickening and mild pe ricolonic inflammatory stranding consistent with colitis. No pneumatosis. Small bowel is normal with no obstruction. Appendix is normal. Bladder is normal. Coarse calcification in the uterus likely repr esenting degenerating uterine fibroids. Small umbilical and moderate-sized infraumbilical fat-contain ing hernias the latter also including several small heterotopic ossicles. There is calcified atherosc lerosis of the aorta and many of the other arteries. No abscess or free intraperitoneal gas or fluid. L1 hemangioma. Moderate thoracolumbar spondylosis. IMPRESSION: 1. Progression of diffuse colitis which could be infectious, inflammatory or ischemic in etiology. 2. Cirrhosis with mild splenomegaly which could be related to body habitus or to portal venous hypert ension. 3. Cardiomegaly. 4. Umbilical/infraumbilical fat-containing hernias. Reviewed, dictated and finalized at location B. IMPRESSION: 1. Progression of diffuse colitis which could be infectious, inflammatory or is chemic in etiology. 2. Cirrhosis with mild splenomegaly which could be related to body habitus or t o portal venous hypertension. 3. Cardiomegaly. 4. Umbilical/infraumbilical fat-containing hernias.
--- NOTE | ~2019-09-27 | XR_ITS ---
EXAMINATION: XR barium swallow modified DATE: 10/11/2019 14:44 INDICATION: Dysphagia. TECHNIQUE: The patient was given barium-containing material of multiple consistencies to swallow by t thomas speech pathologist while I performed fluoroscopy. Fluoroscopy exposure time was 1.6 minutes. The n umber of fluoroscopy images saved to the PACS was 1. Dose-area product was 1.1 Gy-cm^2. FINDINGS: There was no laryngeal penetration or aspiration. IMPRESSION: 1. No laryngeal penetration or aspiration. 2. Please refer to the speech therapy report for recommendations. Reviewed, dictated and finalized at location A.
--- NOTE | ~2019-09-27 | CT_ITS ---
EXAMINATION: CT abdomen pelvis wo con DATE: 10/07/2019 15:37 INDICATION: C. Difficile infection with persistent leukocytosis. TECHNIQUE: Computed tomography (CT) of the abdomen and pelvis was performed without intravenous contr ast. Automated exposure control and iterative reconstruction technique were employed. The dose-length product was 1598.97 mGy-cm. COMPARISON: 09/27/2019 FINDINGS: Small bilateral pleural effusions with basilar and dependent compressive atelectasis in the bilateral lower lobes. No pneumonia or pulmonary edema. Cardiomegaly. Atherosclerotic coronary artery calcific ations. Aortic valve and dense mitral annular calcifications. No pericardial effusion. Enlargement of the central pulmonary arteries consistent with pulmonary arterial hypertension. Cirrhotic liver with nodular surface. Megaly measuring 15.5 cm in length. There is a geographic region of decreased atten uation at the anterior periphery of the spleen suggesting splenic infarct. Gallbladder, pancreas and bilateral adrenal glands are normal. Mild bilateral renal atrophy. 1.2 cm cyst lower pole of the left kidney. Dystrophic calcifications in the uterus which could be related to degenerated uterine fibroi ds. Phleboliths at the right adnexa. Left adnexa and bladder are unremarkable. Rectal tube in expecte d position. There is diffuse wall thickening throughout the colon most prominent in the region of the transverse and descending colon consistent with colitis. No pneumatosis. Associated mesenteric edema . Small amount of ascites in the abdomen and pelvis. No abscess or free intraperitoneal gas. A couple heterotopic ossicles within a moderate-sized fat-containing umbilical hernia likely sequela of chron ic fat necrosis. Skin thickening and subcutaneous edema along the anterior abdominal wall. Correlate clinically for cellulitis. There is calcified atherosclerosis of the aorta and many of the other leatha chela. Mild thoracolumbar levoscoliosis. Moderate spondylosis. IMPRESSION: 1. Radiographically uncomplicated colitis. 2. Cardiomegaly. 3. Cirrhosis with splenomegaly suggesting portal venous hypertension. 4. Geographic regions of peripheral decreased attenuation in the inferior spleen suggesting splenic i nfarcts. 5. Small bilateral pleural effusions and small amount of ascites which could be related to either hea rt failure and/or liver disease. 6. Moderate-sized fat-containing umbilical hernia. 7. Skin thickening and subcutaneous edema along the anterior abdominal wall. Correlate clinically for possible cellulitis. Reviewed, dictated and finalized at location A. IMPRESSION: 1. Radiographically uncomplicated colitis. 2. Cardiomegaly. 3. Cirrhosis with splenomegaly suggesting portal venous hypertension. 4. Geographic regions of peripheral decreased attenuation in the inferior splee n suggesting splenic infarcts. 5. Small bilateral pleural effusions and small amount of ascites which could be related to either heart failure and/or liver disease. 6. Moderate-sized fat-containing umbilical hernia. 7. Skin thickening and subcutaneous edema along the anterior abdominal wall. Co rrelate clinically for possible cellulitis.
--- NOTE | ~2019-09-27 | XR_ITS ---
EXAMINATION: XR chest 1V portable DATE: 09/27/2019 13:19 INDICATION: Fever. Nausea, vomiting, and diarrhea. TECHNIQUE: A single frontal view of the chest was obtained. COMPARISON: Chest single view 09/13/2019, CT abdomen and pelvis 08/31/2019 FINDINGS: There is mild atelectasis in the lower lung zones. No pleural effusion or pneumothorax. Car diomegaly is noted. A right internal jugular central venous catheter is seen with tip in the proximal right atrium. IMPRESSION: 1. Mild atelectasis in the lower lung zones. 2. Cardiomegaly. Reviewed, dictated and finalized at location A.
--- NOTE | ~2019-09-27 | XR_ITS ---
EXAMINATION: XR abdomen/kub 1V DATE: 10/06/2019 09:25 INDICATION: C. Difficile colitis. Leukocytosis. TECHNIQUE: A supine view of the abdomen on 2 radiographs was obtained. COMPARISON: CT abdomen and pelvis 09/27/2019 FINDINGS: There is a paucity of bowel gas. There are no dilated loops of bowel. IMPRESSION: 1. Nonobstructive bowel gas pattern. Reviewed, dictated and finalized at location A.
--- NOTE | ~2019-09-27 | XR_ITS ---
EXAMINATION: XR chest 1V portable DATE: 10/07/2019 05:55 INDICATION: Shortness of breath. TECHNIQUE: A single frontal view of the chest was obtained. COMPARISON: Chest single view 10/02/2019, CT abdomen and pelvis 09/27/2019 FINDINGS: The the patient rotated to her left. There are small pleural effusions. There are airspace opacities in left perihilar region and at the lung bases. No pneumothorax. Cardiomegaly is noted. A r ight internal jugular central venous catheter is seen with tip in the right atrium. IMPRESSION: 1. Worsened airspace opacities in left perihilar region and at the lung bases, consistent with pulmon connie edema/atelectasis versus pneumonia. 2. Worsened small pleural effusions. 3. Cardiomegaly. Reviewed, dictated and finalized at location A. IMPRESSION: 1. Worsened airspace opacities in left perihilar region and at the lung bases, consistent with pulmonary edema/atelectasis versus pneumonia. 2. Worsened small pleural effusions. 3. Cardiomegaly.
--- NOTE | 2019-09-27 12:14 | ECG_ITS ---
Measurements Intervals [place] Rate: 75 P: -21 DE: 184 QRS: -31 QRSD: 107 T: 63 QT: 366 QTc: 411 Interpretive Statements SINUS RHYTHM LEFT AXIS DEVIATION LOW QRS VOLTAGE IN PRECORDIAL LEADS VOLTAGE CRITERIA FOR LVH POOR R WAVE PROGRESSION, ANTERIOR LEADS BORDERLINE ST-T WAVE ABNORMALITY- LATERAL LEADS ABNORMAL ECG Electronically Signed On 09-27-2019 14:09:29 CDT by Jered Vee D.O.
--- NOTE | 2019-09-27 12:40 | ED.FEVER ---
HPI - Fever General Chief Complaint: Fever Stated Complaint: N/V/D Time Seen by Provider: 09/27/19 12:34 Source: patient and family Mode of arrival: EMS Limitations: no limitations History of Present Illness HPI Narrative: Pt is a 69 y/o female who presents to the ED, via EMS, from dialysis with c/o a fever of 101F. Per family at bedside, pt was supposed to get dialysis, but d/t her fever they wound not start it. Pt was released from the hospital a week ago for C. Diff and she is still having diarrhea. Family states that the pt has chronic nausea and she is Rx Zofran that only gives her temporary relief. Pt lives in [place] and states that she had a fever yesterday as well. When the pt's family member talked to the NH they states that the pt was still on a stool softener. Pt has not been eating much and is still on a liquid diet. She reports bowel incontinence, lower ABD pain, and weakness. She denies dizziness, cough, or congestion. 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 Tang. She has not been around anyone sick. MD elicited complaint: fever (101F) Onset (ago): day(s) (yesterday) Measured temperature: 38.3 C Context: recent antibiotic use (for C. Diff) Associated symptoms: nausea, diarrhea and other (bowel incontinence, lower ABD pain, and weakness) Related Data Home Medications Medication Instructions Recorded Confirmed aspirin 81 mg tablet,delayed 81 mg PO DAILY 05/09/19 08/31/19 release metoprolol tartrate 100 mg tablet 100 mg PO BID 05/09/19 08/31/19 Allergies Allergy/AdvReac Type Severity Reaction Status Date / Time clindamycin Allergy Unknown Unknown Verified 08/31/19 19:34 Penicillins Allergy Unknown Hives,Skin Verified 08/31/19 19:34 irritation Sulfa (Sulfonamide Allergy Unknown Hives,Skin Verified 08/31/19 19:34 Antibiotics) irritation Review of Systems Review of Systems: All systems reviewed & are unremarkable except as noted in HPI and below Constitutional: Constitutional: Reports fever(s) ENT: Denies other (congestion) Respiratory: Respiratory: Denies cough Gastrointestinal: Gastrointestinal: Reports abdominal pain (lower), Reports fecal incontinence, Reports diarrhea and Reports nausea Neurologic: Denies dizziness and Reports weakness PMFSH Past Medical History Medical History Anemia Anxiety Arthritis CKD (chronic kidney disease) Stage IV CVA (cerebral vascular accident) In 2012, with left side weakness Diabetes mellitus Diastolic dysfunction HLD (hyperlipidemia) HTN (hypertension) Obesity Peripheral neuropathy Seasonal allergies Seizure 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 Alcantara lives at home alone. She has 2 sons and 1 daughter. 1 daughter is unfortunately due to breast cancer. She designates her son Bowen as her surrogate decision maker. She would like to be a full code but plans to discuss this with her family. Smoking status: Never smoker Alcohol intake: never Substance use: never Substance use type: does not use Gender identity (if verbalized by the patient): Female Spiritual care concerns: No Agree to blood products: Yes Exam Const: General: no acute distress, alert and ill appearing chronically Nutritional Appearance: obese Orientation/consciousness: patient oriented x3 HENMT: Head: normal to inspection Neck: Neck: normal visual inspection Resp: Effort & Inspection: normal respiratory effort Auscultation: clear to auscultation bilaterally, no rales, no rh
[2019-09-27] MEDS: SODIUM CHLORIDE 0.9% IV 500 ML 999 ML IV CONT (13:24)
[2019-09-27 13:48] LABS: Basophils Absolute Auto 0.1 K/mm3 (0.0-0.1); Basophils Percent Auto 0.9 % (0.2-1.2); Hematocrit 32.7 % (37.0-47.0); Hemoglobin 9.9 g/dL (12.0-15.0); Immature Granulocyte Absolute 0.05 K/mm3 (0.00-0.031); Immature Granulocyte Percent A 0.4 % (0-0.5); Lymphocytes Absolute Auto 1.21 K/mm3 (0.9-3.2); Lymphocytes Percent Auto 10.2 % (18.3-44.2); Mean Corpuscular HGB Conc 30.3 g/dl (32-36); Mean Corpuscular Hemoglobin 28.5 pg (26-34); Mean Corpuscular Volume 94.2 fl (80-100); Mean Platelet Volume 10.5 fl (7.4-10.4); Monocytes Absolute Auto 1.1 K/mm3 (0.1-0.6); Monocytes Percent Auto 9.4 % (2.6-8.5); Neutrophils Absolute Auto 9.3 K/mm3 (1.3-6.7); Neutrophils Percent Auto 79.1 % (45.5-73.1); Platelet Count Result 149 k/mm3 (150-375); Red Blood Count 3.47 M/mm3 (4.2-5.4); Red Cell Distribution Width 15.7 % (11.5-14.5); White Blood Count 11.8 K/mm3 (4.5-10.0)
[2019-09-27 13:59] LABS: Alanine Aminotransferase 11 U/L (4-35); Alkaline Phosphatase 81 U/L (38-126); Aspartate Amino Transferase 13 U/L (14-36); Bilirubin,Total 0.8 mg/dL (0.2-1.3); Blood Urea Nitrogen 36 mg/dL (7-17); Calcium 8.3 mg/dL (8.4-10.2); Carbon Dioxide 22 mmol/L (22-30); Chloride 100 mmol/L (98-107); Estimated Glomerular Filt Rate 6; Glucose 153 mg/dL (65-105); Lipase 17 U/L (23-300); Potassium 3.8 mmol/L (3.4-5.0); Sodium 133 mmol/L (137-145)
[2019-09-27] MEDS: metroNIDAZOLE 500 MG/ISO 100ML 500 MG/100 ML BAG 100 MG IVPB (15:54)
[2019-09-27 16:16] LABS: Lactic Acid Reflex 1.3 mmol/L (0.7-2.1)
[2019-09-27] MEDS: VANCOMYCIN ORAL 125 MG/2.5 ML SYRUP PO (16:36)
--- NOTE | 2019-09-27 17:22 | ADMGEN ---
This patient, Aurelia Alcantara, was admitted to 3 [facility] Surg Room 315-01. Patient/family oriented to hospital policies and general routines including ID bracelet, bed and alarms, visiting hours, pain management, procedures, bathroom and other care routines, personal items, smoking policy, room service/diet, and visiting hours. Valuables list has been completed. Information on how to activate the Rapid Response Team has been discussed. Patient/Family are encouraged to report perceived risks to care and to ask questions if they do not understand what they are told or what they should do.
[2019-09-27] MEDS: LACTATED RINGERS 1,000 ML 125 ML IV CONT (17:55)
--- NOTE | 2019-09-27 20:00 | PM.IMHP ---
H&P: HPI History of Present Illness Chief complaint: Fever. Narrative: Aurelia Alcantara is a 69-year-old female with multiple medical problems including end-stage renal disease on hemodialysis, hypertension, type 2 diabetes mellitus, and history of stroke who presented to the emergency department earlier this afternoon via EMS from dialysis for evaluation of a fever. She is known to the hospitalist service as she was admitted to us September 01 through September 21, 2019 with C diff, treated with 10 days of p.o. vancomycin. Her diarrhea improved before discharge, but returned approximately 5 days ago. She is now having about 6 loose stools per day, similar to though she was experiencing when she was being treated for C diff. She also mentions mild, diffuse abdominal tenderness with palpation. She reported for dialysis today but was found to have a temperature of 101? and she was redirected to the emergency department. CT of the abdomen and pelvis showed progress in of diffuse colitis, she is being admitted in this setting. With further questioning, it sounds like she may be on a stool softener at the halfway where she is currently staying, but she cannot say for sure. At the time my evaluation she has no complaints. She denies feeling febrile. No chills or sweats. Appetite has been stable but she reports having frequent nausea, however no vomiting. She no longer urinates. No blood or mucus in the stool. Review of Systems Review of Systems: Narrative: Twelve systems were reviewed with pertinent positives and negatives as per HPI. Reports general weakness, presumably due to recent fairly lengthy hospital stay. No headache. No sinus congestion, rhinorrhea, otalgia, or odynophagia. She denies chest pain and shortness of breath. No cough. No recent travel or sick contacts. Except as documented all other systems were reviewed and are negative. ON LICENSE OF [facility] Past Medical History Medical History (Updated 09/27/19 @ 21:07 by Cata Dominguez PA-C) Anxiety Chronic anemia Chronic stasis dermatitis Cirrhosis With mild splenomegaly noted on CT of the abdomen and pelvis 09/27/2019. CVA (cerebral vascular accident) In 2011, with left side weakness. End-stage renal disease on hemodialysis History of Clostridium difficile colitis Hyperlipidemia Hypertension Osteoarthritis Seasonal allergies Severe pulmonary arterial systolic hypertension Recent echocardiogram demonstrated ejection fraction of 65 to 70% in addition to diastolic dysfunction. Suspected sleep apnea For awaiting formal outpatient polysomnogram. Seen by pulmonology during previous visit, recommending BiPAP at nighttime, 06/11 with a rate of 14 FiO2 of 40. . Type 2 diabetes mellitus With peripheral neuropathy. Recent hemoglobin A1c was 6.1%. Surgical History Surgical History (Updated 09/27/19 @ 20:52 by Cata Dominguez PA-C) History of arthroscopy of right knee History of tubal ligation History of umbilical hernia repair Family History Family History Father , 76 Family history of cardiovascular disease Acute myocardial infarction Mother Family history of Alzheimer's disease Hypertension Sibling Hypertension Sibling Hypertension Daughter Breast cancer Social History Social History (Updated 09/27/19 @ 20:54 by Cata Dominguez PA-C) Social History: Mrs. Alcantara is and lives in her own home in [place]. She has 2 sons and 1 daughter. 1 daughter is unfortunately due to breast cancer. She designates her son Bowen as her surrogate decision maker. She would like to be a full code. She smoked remotely for short period of time. No alcohol or drug use. Spiritual care concerns: No Agree to blood products: Yes Meds Home Medications and Allergies Home Medications Medication Instructions Recorded Confirmed Type aspirin 81 mg tablet,delayed 81 mg PO DAILY 05/09
[2019-09-27] MEDS: ONDANSETRON INJ 4 MG/2 ML VIAL IV PUSH (22:07)
[2019-09-27] MEDS: METOPROLOL TARTRATE 50 MG TAB 100 MG PO (22:57)
[2019-09-27] MEDS: FIDAXOMICIN 200 MG TABLET PO (22:57)
[2019-09-27 23:34] LABS: Glucose Point of Care 178 (65-105)
[2019-09-28] VITALS (30 sets, daily range): BP systolic 63–133; BP diastolic 37–69; PULSE 65–156; RESP 20–28; TEMP 36.9–37.6; O2SAT 95–98
[2019-09-28] MEDS: ONDANSETRON INJ 4 MG/2 ML VIAL IV PUSH ×2 (06:42→13:57)
[2019-09-28 07:15] LABS: Hematocrit 33.5 % (37.0-47.0); Hemoglobin 10.3 g/dL (12.0-15.0); Mean Corpuscular HGB Conc 30.7 g/dl (32-36); Mean Corpuscular Hemoglobin 28.7 pg (26-34); Mean Corpuscular Volume 93.3 fl (80-100); Mean Platelet Volume 11.1 fl (7.4-10.4); Platelet Count Result 164 k/mm3 (150-375); Red Blood Count 3.59 M/mm3 (4.2-5.4); Red Cell Distribution Width 15.7 % (11.5-14.5); White Blood Count 12.9 K/mm3 (4.5-10.0)
[2019-09-28 07:34] LABS: Blood Urea Nitrogen 48 mg/dL (7-17); Calcium 8.6 mg/dL (8.4-10.2); Carbon Dioxide 21 mmol/L (22-30); Chloride 102 mmol/L (98-107); Estimated CRCL calculation 7 ml/min; Estimated Glomerular Filt Rate 5; Glucose 175 mg/dL (65-105); Magnesium 1.8 mg/dL (1.6-2.3); Phosphorus 3.9 mg/dL (2.5-4.5); Potassium 3.9 mmol/L (3.4-5.0); Sodium 134 mmol/L (137-145)
[2019-09-28 08:41] LABS: Glucose Point of Care 173 (65-105)
[2019-09-28] MEDS: HEPARIN SODIUM 1,000 UNITS/ML VIAL 1000 UNITS IV PUSH ×2 (08:46→12:40)
[2019-09-28] MEDS: HEPARIN SODIUM 1,000 UNITS/ML VIAL 500 UNITS IV PUSH ×2 (08:49→09:49)
[2019-09-28] MEDS: ALBUMIN HUMAN 25% 12.5 GM/50ML 50 ML IVPB (10:17)
[2019-09-28] MEDS: SODIUM CHLORIDE 0.9% IV 1,000 ML 999 ML IV CONT (10:37)
--- NOTE | 2019-09-28 11:09 | PC.NURSE ---
Patient to dialysis treatment room at 830.
[2019-09-28] MEDS: EPOETIN ALFA 10,000 UNITS/ML VIAL 10000 UNITS IV PUSH (11:26)
--- NOTE | 2019-09-28 12:24 | PM.IMPN ---
Progress Note: A&P Assessment and Plan (1) C. difficile colitis: Code(s): A04.72 - Enterocolitis due to Clostridium difficile, not specified as recurrent Status: Resolved Assessment and Plan: Given recent C diff, likely this is a recurrence and there is no need to retest. Contract precautions Fidaxomicin. (2) End-stage renal disease on hemodialysis: Code(s): N18.6 - End stage renal disease; Z99.2 - Dependence on renal dialysis Status: Acute Assessment and Plan: Dr. Tang consulted for hemodialysis. (3) Chronic anemia: Code(s): D64.9 - Anemia, unspecified Status: Acute Assessment and Plan: Hemoglobin and hematocrit are stable on review of previous labs Likely anemia of chronic kidney disease (4) Suspected sleep apnea: Code(s): R29.818 - Other symptoms and signs involving the nervous system Status: Acute Assessment and Plan: Pulmonology recommends BiPAP, 14/5 with a rate of 14, to be used well sleeping. Patient is awaiting formal outpatient polysomnogram. (5) Type 2 diabetes mellitus: Qualifiers: Diabetes mellitus terminal worker insulin use: with terminal worker use Diabetes mellitus complication status: with hyperglycemia Qualified Code(s): E11.65 - Type 2 diabetes mellitus with hyperglycemia; Z79.4 - nursing home (current) use of insulin Code(s): E11.9 - Type 2 diabetes mellitus without complications Status: Acute Assessment and Plan: Well controlled with a recent hemoglobin A1c of 6.1%. On low-dose Lantus. Initiate sliding scale insulin, Accu-Cheks, and hypoglycemic protocol. (6) Hypertension: Qualifiers: Hypertension type: essential hypertension Qualified Code(s): I10 - Essential (primary) hypertension Code(s): I10 - Essential (primary) hypertension Status: Acute Assessment and Plan: Due to soft blood pressure continue to hold antihypertensives (7) Sepsis: Qualifiers: Sepsis type: sepsis due to unspecified organism Sepsis acute organ dysfunction status: without acute organ dysfunction Qualified Code(s): A41.9 - Sepsis, unspecified organism Code(s): A41.9 - Sepsis, unspecified organism Status: Acute Assessment and Plan: Present on admission and supported by relative hypotension (responsive to IV fluids), fever, and leukocytosis in the setting of C diff colitis. Resolved Subjective Date/time seen: 09/28/19 12:24 Interval history: Admitted floor/3 with recurrent Clostridium difficile colitis. Second episode. Still with some generalized abdominal cramping. Diarrhea. No nausea or vomiting. Anorectic. Denied chest pain shortness of breath fevers chills abnormal bleeding and dysuria. And Denied focal weakness or numbness or headaches. Review of Systems Review of Systems: All systems reviewed & are unremarkable except as noted in HPI and below Exam Narrative: Exam Narrative: HEENT: EOMI, PERRL, sclera nonicteric, pharyngeal mucosa pink and intact NECK: No JVD CHEST: Clear to auscultation. Normal effort. HEART: NL S1/S2, regular, no murmur ABDOMEN: BS+, soft, mild diffuse tenderness without guarding or rebound, no mass, no bruits EXTREMITIES: No cyanosis, edema, or clubbing NEUROLOGIC: CN intact and symmetric to inspection. MUSCULOSKELETAL: Tone and strength symmetric. PSYCH: Alert. Oriented to person, place, and time. Objective Data Vital Signs Vital Signs: Vital Signs - 24 hr 09/27/19 13:54 09/27/19 14:04 09/27/19 15:00 Temperature 99 F Pulse Rate 71 68 Respiratory Rate 24 H Blood Pressure 84/58 L 97/49 L Pulse Oximetry 100 09/27/19 16:15 09/27/19 16:55 09/27/19 17:35 Temperature 98.7 F Pulse Rate 72 72 70 Respiratory Rate 18 20 Blood Pressure 129/56 L 129/56 L Pulse Oximetry 97 100 09/27/19 18:00 09/27/19 20:00 09/27/19 21:56 Temperature 98.8 F 98.8 F Pulse Rate 7
--- NOTE | 2019-09-28 13:40 | PM.CNNEP ---
Assessment and Plan Assessment and plan (1) End-stage renal disease on hemodialysis: Code(s): N18.6 - End stage renal disease; Z99.2 - Dependence on renal dialysis Status: Acute Assessment and Plan: Aurelia has end-stage renal disease. She had dialysis earlier today to make up for yesterday's treatment. Her blood pressure was somewhat soft so no fluid was given. In fact I asked them to give her a Liter of fluid. (2) C. difficile colitis: Code(s): A04.72 - Enterocolitis due to Clostridium difficile, not specified as recurrent Status: Resolved Assessment and Plan: The patient has copious amounts of diarrhea. She has 5 kg under her dry weight. Her blood pressure is soft. I think she is still volume depleted. I will give her some IV fluids overnight. (3) Anemia: Qualifiers: Anemia type: iron deficiency Iron deficiency anemia type: unspecified iron deficiency Qualified Code(s): D50.9 - Iron deficiency anemia, unspecified Code(s): D64.9 - Anemia, unspecified Status: Chronic Assessment and Plan: Her hemoglobin is target for end-stage kidney disease. She received some Epogen today. (4) Suspected sleep apnea: Code(s): R29.818 - Other symptoms and signs involving the nervous system Status: Acute Assessment and Plan: This is going to be evaluated as an outpatient (5) Type 2 diabetes mellitus: Code(s): E11.9 - Type 2 diabetes mellitus without complications Status: Acute Assessment and Plan: Patient is on Accu-Cheks and sliding-scale insulin (6) Sepsis: Code(s): A41.9 - Sepsis, unspecified organism Status: Acute Assessment and Plan: She has leukocytosis, hypotension. She is getting antibiotics and supportive care. (7) Hypertension: Code(s): I10 - Essential (primary) hypertension Status: Acute Assessment and Plan: Blood pressure is low. Antihypertensives are on hold. History of Present Illness Reason for Consult Consult date: 09/28/19 Chief Complaint Chief complaint: Fever. History of Present Illness Narrative: Aurelia is a very pleasant 69-year-old lady who has multiple medical problems including end-stage renal disease on dialysis 3 times a week on Wednesdays and Fridays, hypertension, diabetes, stroke, anemia, cirrhosis, hyperlipidemia, pulmonary hypertension, and suspected sleep apnea. The patient was just in the hospital and ended up starting dialysis here. She was discharged and was getting dialysis at [facility] on Wednesdays and Fridays. On Monday she had dialysis and was not feeling very well. She just started having diarrhea. She was getting evaluated at the halfway. she was worse and Monday she was even worse again so came to the emergency room. She was evaluated in the ER and felt to have C diff. Cultures are done and she was admitted. She is getting medications for this. Patient has been having some abdominal discomfort. This is relieved somewhat with the diarrheal spells. She has a little bit of nausea but not much. She has been eating okay but not great. She has no skin rash joint pains chest pain shortness of breath. No fevers. No cough. CT the abdomen showed diffuse colitis. White blood cell count. Review of Systems Constitutional: Constitutional: Reports no additional constitutional complaints Eyes: Eyes: Reports no additional eye complaints ENT: Reports system reviewed and no additional complaints, except as documented Cardiovascular: Cardiovascular: Reports no additional cardiovascular complaints Respiratory: Respiratory: Reports no additional respiratory complaints Gastrointestinal: Gastrointestinal: Reports no additional gastrointestinal complaints Genitourinary: Genitourinary: Reports no additional female genitourinary complaints Musculoskeletal: Musculoskeletal: Reports no additional musculoske
[2019-09-28] MEDS: TOLNAFTATE 1% POWDER 45 GM BTL 1 APPLIC TOPICAL ×2 (13:42→20:45)
[2019-09-28] MEDS: ASPIRIN 81 MG ENTERIC TABLET PO (13:43)
[2019-09-28] MEDS: FERROUS SULFATE 324 MG TABLET PO (13:43)
[2019-09-28] MEDS: FAMOTIDINE 20 MG TABLET PO ×2 (13:43→20:44)
[2019-09-28] MEDS: FIDAXOMICIN 200 MG TABLET PO ×2 (13:43→20:44)
[2019-09-28] MEDS: COLLAGENASE OINT 30 GM TUBE 1 APPLIC TOPICAL (13:44)
[2019-09-28] MEDS: METOPROLOL TARTRATE 50 MG TAB 100 MG PO (13:46)
[2019-09-28 13:47] LABS: Glucose Point of Care 112 (65-105)
[2019-09-28] MEDS: SODIUM CHLORIDE 0.9% IV 1,000 ML 75 ML IV CONT (15:39)
[2019-09-28 18:15] LABS: Glucose Point of Care 137 (65-105)
[2019-09-28] MEDS: SIMVASTATIN 20 MG TABLET 40 MG PO (20:44)
[2019-09-28] MEDS: ALPRAZOLAM 0.5 MG TABLET PO (20:44)
--- NOTE | 2019-09-28 21:37 | ECG_ITS ---
Measurements Intervals [place] Rate: 149 P: CO: 0 QRS: -22 QRSD: 96 T: 61 QT: 276 QTc: 435 Interpretive Statements ATRIAL FIBRILLATION WITH RAPID VENTRICULAR RESPONSE BORDERLINE R WAVE PROGRESSION, ANTERIOR LEADS BORDERLINE ST-T WAVE ABNORMALITY- LATERAL LEADS BASELINE WANDER- II, III, AVF ABNORMAL ECG Electronically Signed On 09-29-2019 7:48:41 CDT by Jered Vee D.O.
[2019-09-28 21:57] LABS: Glucose Point of Care 138 (65-105)
--- NOTE | 2019-09-28 22:07 | PM.EVENT ---
Event Note Event Note Event Note: A rapid response was called. The patient recently had been running turned from dialysis around 1900. When her blood pressure was checked the patient's blood pressure was some around 60/30. I ordered a 500 cc bolus until I could get to the floor. The bolus was still infusing when her blood pressure came up to 79/49. We decided to open up the fluid wide open. The patient's heart rate went up to the 150s. An EKG was read as atrial fibrillation with RVR. We placed the patient on her CPAP. We placed her in Trendelenburg which helped some. I called the nuclear equipment test engineer who agreed to allow the patient to come into the intensive care unit. Albumin was ordered. And amiodarone. Patient is already on heparin. I will consult cardiology.
--- NOTE | 2019-09-28 23:12 | PC.NURSE ---
Walked into room to find pt drowsy but easy to awake. Administered nightly medications and PILLO Baker entered room to check vitals. VS were found to have pressure of 70s/40s and a heart rate of 150. I called SARAH Hernandez who ordered a 500 ml bolus of normal saline which I hung. BP was still low at 80s/50s so a rapid response was called at 2133. Rapid response team and Juana Myers arrived to assess the patient. SARAH Arias believed that a transfer to ICU would be the best course of action. Pt finished the bolus of the 500 ml of normal saline and was transported to ICU room 7.
[2019-09-28] MEDS: AMIODARONE 360 MG/D5W 200 ML 360 MG/200 ML BAG 33.3 MG IV CONT (23:14)
[2019-09-28] MEDS: AMIODARONE 150 MG/D5W 100 ML 150 MG/100 ML BAG 600 MG IV CONT (23:16)
[2019-09-28 23:17] LABS: Glucose Point of Care 151 (65-105)
--- NOTE | 2019-09-28 23:22 | PC.NURSE ---
This patient, Aurelia Alcantara, was transferred to ICU room 7 on 09/28/19 at 2230. Personal belongings sent with patient. Belongings list checked and signed with receiving unit. Report given to receiving unit. Appropriate documentation sent with patient.
[2019-09-28] MEDS: ALBUMIN HUMAN 25% 25 GM/100 ML 100 ML IVPB (23:34)
--- NOTE | 2019-09-28 23:57 | PM.EVENT ---
Event Note Event Note Event Note: A rapid response was called on the patient. The patient was assessed by the nurse practitioner transferred to the ICU. I evaluated the patient shortly after her arrival in the ICU at around 22:40 her blood pressure had improved to the 80s systolic. Her heart rate was stillQuite elevated to 140s and 150s in AFib RVR. At the time of my evaluation the patient's blood pressure had improved to 90s and low 100 systolic. Her amiodarone infusion had just been initiated. The patient reports that she had had incontinent stool just prior to nursing staff finding her and the rapid response being called. She denies any abdominal pain currently. She otherwise reports that she feels unchanged from earlier in the day. She has been afebrile and denies any chills. She does not feel short of breath. He is denying any chest pain or palpitations. She is alert and oriented x3. She is in bed with the head of the bed about 20?. Her heart rate irregularly irregular and ranging between 120-130 at the time of my evaluation. She is not diaphoretic, mild pallor but non jaundice. Hirsutism noted. Lungs are clear to auscultation bilaterally, nasal cannula in place without evidence of increased work breathing. Patient's chart in telemetry have been reviewed. Assessment and Plan: 1. AFib with rapid ventricular response-amiodarone infusion had been ordered without bolus. I requested nursing staff actually give the patient amiodarone bolus then follow with the remainder of the infusion per protocol. Continue to monitor in ICU. Brake Lining Maker has been consulted. 2. Hypotension-likely multifactorial due to vasovagal episode accompanying her diarrheal episode and due to AFib RVR. Hypotension has currently resolved in the patient is receiving albumin currently. Systolic blood pressures have been ranging between the low 90s to low 100's since transfer to the ICU with maps in the mid to high 60s. Will continue to monitor closely. 30 minutes spent in critical care activities.
[2019-09-29] VITALS (19 sets, daily range): BP systolic 71–121; BP diastolic 52–91; PULSE 64–145; RESP 20–27; TEMP 36.6–37.3; O2SAT 94–98; BMI 44.8
[2019-09-29] MEDS: AMIODARONE 360 MG/D5W 200 ML 360 MG/200 ML BAG 33.3 MG IV CONT ×2 (05:13→21:10)
[2019-09-29] MEDS: hetaSTARCH 6%/NACL 500 ML 250 ML IV CONT (08:03)
[2019-09-29 08:10] LABS: Glucose Point of Care 141 (65-105)
--- NOTE | 2019-09-29 09:35 | WPDCNINT ---
Assessment and Plan Assessment and plan (1) Hypotension: Code(s): I95.9 - Hypotension, unspecified Status: Acute Assessment and Plan: patient was hypotensive overnight, likely due to hypovolemia secondary to diarrhea, A.fib RVR - pt given fluids cautiously as she has ESRD on HD - Will give pt additional IV fluids - Blood pressures stable. (2) Atrial fibrillation with RVR: Code(s): I48.91 - Unspecified atrial fibrillation Status: Acute Assessment and Plan: could be related to hypotension, hypovolemia, colitis, stress - Continue on Amiodarone infusion - converted to sinus rhythm - cardiology evaluated the pt, not a candidate for anticoagulation due to risk of bleed secondary to diffuse colitis. Will have to assess later if she is a candidate for anticoagulation. (3) C. difficile colitis: Code(s): A04.72 - Enterocolitis due to Clostridium difficile, not specified as recurrent Status: Resolved Assessment and Plan: Continue Fidoximicin - CT abd shows progression of diffuse colitis - infectious disease consult (4) End-stage renal disease on hemodialysis: Code(s): N18.6 - End stage renal disease; Z99.2 - Dependence on renal dialysis Status: Acute Assessment and Plan: nephrology following the patient, dialysis per Nephrology (5) Suspected sleep apnea: Code(s): R29.818 - Other symptoms and signs involving the nervous system Status: Acute Assessment and Plan: BiPAP at night and during the day while asleep (6) Diabetes mellitus: Qualifiers: Diabetes mellitus type: type 2 Diabetes mellitus buttermaker helper insulin use: with long-term use Diabetes mellitus complication status: with kidney complications Diabetes mellitus complication detail: with chronic kidney disease Chronic kidney disease stage: stage 4 (severe) Qualified Code(s): E11.22 - Type 2 diabetes mellitus with diabetic chronic kidney disease; N18.4 - Chronic kidney disease, stage 4 (severe); Z79.4 - intermediate accountant (current) use of insulin Code(s): E11.9 - Type 2 diabetes mellitus without complications Status: Chronic Assessment and Plan: continue Accu-Cheks and sliding scale insulin, blood sugars have been stable (7) DVT prophylaxis: Code(s): Z29.9 - Encounter for prophylactic measures, unspecified Status: Acute Assessment and Plan: SCDs Additional Plan discussed with patient updated with her condition and plan of care. Code status: Full code Critical care time spent: 39 minutes Due to a high probability of clinically significant, life threatening deterioration, the patient required my highest level of preparedness to intervene emergently and I personally spent this critical care time directly and personally managing the patient. This critical care time included obtaining a history; examining the patient; pulse oximetry; ordering and review of studies; arranging urgent treatment with development of a management plan; evaluation of patient's response to treatment; frequent reassessment; and discussions with other providers. It was exclusive of separately billable procedures and treating other patients and teaching time. 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 vancomycin. presented to the ED on 09/27/2019 with diarrhea V days prior to admission, stated she had 6 loose stools per day. She also complained of mild diffuse abdominal pain. Had a dialysis on
--- NOTE | 2019-09-29 09:41 | P.PNIM_ITS ---
Progress Note: A&P Assessment and Plan (1) C. difficile colitis: Code(s): A04.72 - Enterocolitis due to Clostridium difficile, not specified as recurrent Status: Resolved Assessment and Plan: * Given recent C diff, likely this is a recurrence and there is no need to retest. * Contract precautions * Fidaxomicin first dose 4/3 PM. * 4/5 PM will receive dose 5 of 20 (10 days) (2) Atrial fibrillation with RVR: Code(s): I48.91 - Unspecified atrial fibrillation Status: Acute Assessment and Plan: * Continue amiodarone IV * Echo * 4/5 to IMU (3) End-stage renal disease on hemodialysis: Code(s): N18.6 - End stage renal disease; Z99.2 - Dependence on renal dialysis Status: Acute Assessment and Plan: * Dr. Tang consulted for hemodialysis. (4) Chronic anemia: Code(s): D64.9 - Anemia, unspecified Status: Acute Assessment and Plan: * Hemoglobin and hematocrit are stable on review of previous labs * Likely anemia of chronic kidney disease (5) Suspected sleep apnea: Code(s): R29.818 - Other symptoms and signs involving the nervous system Status: Acute Assessment and Plan: * Pulmonology recommends BiPAP, 14/5 with a rate of 14, to be used well sleeping. * Patient is awaiting formal outpatient polysomnogram. 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 * Low-dose Lantus. * Sliding scale insulin, Accu-Cheks, and hypoglycemic protocol. * 4/5 FBS 141 (7) Hypertension: Qualifiers: Hypertension type: essential hypertension Qualified Code(s): I10 - Essential (primary) hypertension Code(s): I10 - Essential (primary) hypertension Status: Acute Assessment and Plan: * Due to soft blood pressure continue to hold antihypertensives (8) Sepsis: Qualifiers: Sepsis type: sepsis due to unspecified organism Sepsis acute organ dysfunction status: without acute organ dysfunction Qualified Code(s): A41.9 - Sepsis, unspecified organism Code(s): A41.9 - Sepsis, unspecified organism Status: Acute Assessment and Plan: * Present on admission and supported by relative hypotension (responsive to IV fluids), fever, and leukocytosis in the setting of C diff colitis. * Resolved Subjective Date/time seen: 09/29/19 09:41 Interval history: Admitted 09/26 with recurrent Clostridium difficile colitis. Second episode. Still with some generalized abdominal cramping. Diarrhea. Nausea, but tolerated meds. Anorectic. 09/27 after dialysis developed hypotension and tachycardia, afib RVR. Transferred to ICU for fluids, IV amiodarone. Denied chest pain shortness of breath fevers chills abnormal bleeding and dysuria. Denied focal weakness or numbness or headaches. Review of Systems Review of Systems: All systems reviewed & are unremarkable except as noted in HPI and below Exam Narrative: Exam Narrative: HEENT: EOMI, PERRL, sclera nonicteric, pharyngeal mucosa pink and intact
--- NOTE | 2019-09-29 09:41 | PM.IMPN ---
Progress Note: A&P Assessment and Plan (1) C. difficile colitis: Code(s): A04.72 - Enterocolitis due to Clostridium difficile, not specified as recurrent Status: Resolved Assessment and Plan: Given recent C diff, likely this is a recurrence and there is no need to retest. Contract precautions Fidaxomicin first dose 4/3 PM. 4/5 PM will receive dose 5 of 20 (10 days) (2) Atrial fibrillation with RVR: Code(s): I48.91 - Unspecified atrial fibrillation Status: Acute Assessment and Plan: Continue amiodarone IV Echo 4/5 to IMU (3) End-stage renal disease on hemodialysis: Code(s): N18.6 - End stage renal disease; Z99.2 - Dependence on renal dialysis Status: Acute Assessment and Plan: Dr. Tang consulted for hemodialysis. (4) Chronic anemia: Code(s): D64.9 - Anemia, unspecified Status: Acute Assessment and Plan: Hemoglobin and hematocrit are stable on review of previous labs Likely anemia of chronic kidney disease (5) Suspected sleep apnea: Code(s): R29.818 - Other symptoms and signs involving the nervous system Status: Acute Assessment and Plan: Pulmonology recommends BiPAP, 14/5 with a rate of 14, to be used well sleeping. Patient is awaiting formal outpatient polysomnogram. (6) Type 2 diabetes mellitus: Qualifiers: Diabetes mellitus intermediate manager insulin use: with intermediate manager use Diabetes mellitus complication status: with hyperglycemia Qualified Code(s): E11.65 - Type 2 diabetes mellitus with hyperglycemia; Z79.4 - correction (current) use of insulin Code(s): E11.9 - Type 2 diabetes mellitus without complications Status: Acute Assessment and Plan: Well controlled with a recent hemoglobin A1c of 6.1%. Low-dose Lantus. Sliding scale insulin, Accu-Cheks, and hypoglycemic protocol. /5 FBS 141 (7) Hypertension: Qualifiers: Hypertension type: essential hypertension Qualified Code(s): I10 - Essential (primary) hypertension Code(s): I10 - Essential (primary) hypertension Status: Acute Assessment and Plan: Due to soft blood pressure continue to hold antihypertensives (8) Sepsis: Qualifiers: Sepsis type: sepsis due to unspecified organism Sepsis acute organ dysfunction status: without acute organ dysfunction Qualified Code(s): A41.9 - Sepsis, unspecified organism Code(s): A41.9 - Sepsis, unspecified organism Status: Acute Assessment and Plan: Present on admission and supported by relative hypotension (responsive to IV fluids), fever, and leukocytosis in the setting of C diff colitis. Resolved Subjective Date/time seen: 09/29/19 09:41 Interval history: Admitted 09/26 with recurrent Clostridium difficile colitis. Second episode. Still with some generalized abdominal cramping. Diarrhea. Nausea, but tolerated meds. Anorectic. 09/27 after dialysis developed hypotension and tachycardia, afib RVR. Transferred to ICU for fluids, IV amiodarone. Denied chest pain shortness of breath fevers chills abnormal bleeding and dysuria. Denied focal weakness or numbness or headaches. Review of Systems Review of Systems: All systems reviewed & are unremarkable except as noted in HPI and below Exam Narrative: Exam Narrative: HEENT: EOMI, PERRL, sclera nonicteric, pharyngeal mucosa pink and intact NECK: No JVD CHEST: Clear to auscultation. Normal effort. HEART: NL S1/S2, regular, no murmur ABDOMEN: BS+, soft, mild diffuse tenderness without guarding or rebound, no mass, no bruits EXTREMITIES: No cyanosis, edema, or clubbing NEUROLOGIC: CN intact and symmetric to inspection. MUSCULOSKELETAL: Tone and strength symmetric. PSYCH: Alert. Oriented to person, place, and time. Objective Data Vital Signs Vital Signs: Vital Signs - 24 hr 09/28/19 09:45 09/28/19 10:00 09/28/19 10:10 Temperature Pu
[2019-09-29] MEDS: COLLAGENASE OINT 30 GM TUBE 1 APPLIC TOPICAL (09:47)
[2019-09-29] MEDS: TOLNAFTATE 1% POWDER 45 GM BTL 1 APPLIC TOPICAL ×2 (09:47→21:09)
--- NOTE | 2019-09-29 10:06 | PM.CNCAR ---
Assessment and Plan Assessment and plan (1) Atrial fibrillation with RVR: Code(s): I48.91 - Unspecified atrial fibrillation Status: Acute Assessment and Plan: 69-year-old female hypertension, diastolic dysfunction, diabetes mellitus on insulin, CKD on hemodialysis, history of CVA in 2011 with left-sided weakness, peripheral neuropathy hyperlipidemia. Recent C diff colitis, admitted to the hospital with fever and abdominal discomfort with CT scan of the abdomen showing progression of diffuse colitis which could be infectious, inflammatory or ischemic in etiology. During hospitalization, patient developed atrial fibrillation with RVR, was initiated on IV amiodarone, and is currently in sinus rhythm. Continue IV amiodarone for now, till tomorrow. Patient has diffuse colitis on CT scan. At this time, she would not be an ideal candidate for anticoagulation. However, once patient is clinically stable, her candidacy for chronic anticoagulation needs to be determined. Continue to monitor on telemetry. May transfer to telemetry unit. 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 difficile colitis: Code(s): A04.72 - Enterocolitis due to Clostridium difficile, not specified as recurrent Status: Resolved Assessment and Plan: Management as per primary team History of Present Illness History of Present Illness Consult date/time: 09/29/19 10:06 Date of consult-09/29/2019 Requesting physician:Joann Reason for consult: Atrial fibrillation Chief complaint: Abdominal pain, fever HPI: 69-year-old female hypertension, diastolic dysfunction, diabetes mellitus on insulin, CKD on hemodialysis, history of CVA in 2011 with left-sided weakness, peripheral neuropathy hyperlipidemia. Patient was recently admitted to the hospital C diff colitis and has returned to the hospital on 09/27/2019 with diarrhea associated with mild diffuse abdominal pain. Patient apparently had dialysis on 09/27/2019 and was found to have a fever of 101 and was sent to the ED. CT scan of the abdomen and pelvis reported progression of diffuse colitis which could be infectious, inflammatory or ischemic in etiology. During hospitalization, patient had atrial fibrillation. EKG from yesterday which I personally evaluated showed atrial fibrillation with RVR, heart rate 149 beats per minute. Cardiology has been therefore consulted for further evaluation and management. Patient was initiated on IV amiodarone, and has converted back to sinus rhythm. Patient's recent echocardiogram from 09/03/2019 showed normal LV systolic function, grade 2 diastolic dysfunction, moderate left atrial enlargement, RVSP 60 mmHg. At the time of evaluation today, patient was somnolent. She denied any chest pain or shortness of breath at rest, but complained of generalized abdominal discomfort. Reason For Visit: Fever. Review of Systems Constitutional: Constitutional: Reports chills, Reports fatigue, Reports fever(s) and Denies headache(s) Eyes: Eyes: Reports as per HPI, Denies change in vision, Denies loss of vision and Denies eye pain ENT: Reports as per HPI, Reports Normal hearing present, Denies headache(s), Denies lip swelling, Denies epistaxis and Denies sore throat Cardiovascular: Cardiovascular: Reports as per HPI, Denies chest pain, Denies syncope, Reports irregular heart rhythm, Denies lightheadedness and Reports dyspnea Respiratory: Respiratory: Reports as per HPI, Denies cough, Denies dyspnea and Denies wheezing Gastrointestinal: Gastrointestinal: Reports as per HPI, Denies abdominal pain, Denies melena, Denies nausea and Denies vomiting Genitourinary: Genitourinary: Reports as per HPI Musculoskeletal: Musculoskeletal: Reports as per HPI, Denies myalgias, Denies muscle cramps and Denies muscle weakness
[2019-09-29] MEDS: FIDAXOMICIN 200 MG TABLET PO ×2 (10:43→21:30)
[2019-09-29] MEDS: FAMOTIDINE 20 MG TABLET PO ×2 (10:43→21:08)
[2019-09-29] MEDS: ASPIRIN 81 MG ENTERIC TABLET PO (10:43)
[2019-09-29 11:25] LABS: Basophils Percent Auto 0.2 % (0.2-1.2); Eosinophils Absolute Auto 0.1 K/mm3 (0-0.3); Eosinophils Percent Auto 0.5 % (0-4.4); Hematocrit 30.5 % (37.0-47.0); Hemoglobin 9.1 g/dL (12.0-15.0); Immature Granulocyte Absolute 0.24 K/mm3 (0.00-0.031); Immature Granulocyte Percent A 2.3 % (0-0.5); Lymphocytes Absolute Auto 1.17 K/mm3 (0.9-3.2); Lymphocytes Percent Auto 11.4 % (18.3-44.2); Mean Corpuscular HGB Conc 29.8 g/dl (32-36); Mean Corpuscular Hemoglobin 28.4 pg (26-34); Mean Corpuscular Volume 95.3 fl (80-100); Mean Platelet Volume 11.4 fl (7.4-10.4); Monocytes Absolute Auto 0.8 K/mm3 (0.1-0.6); Monocytes Percent Auto 7.5 % (2.6-8.5); Neutrophils Percent Auto 78.1 % (45.5-73.1); Nucleated Red Blood Cells Perc 0.3 % (0.0-0.2); Platelet Count Result 142 k/mm3 (150-375); Red Cell Distribution Width 15.8 % (11.5-14.5); White Blood Count 10.3 K/mm3 (4.5-10.0)
[2019-09-29 11:35] LABS: INR 1.1; Prothrombin Time 14.3 Seconds (11.1-14.7)
[2019-09-29 11:38] LABS: Alanine Aminotransferase 14 U/L (4-35); Albumin Level 2.2 g/dL (3.5-5.1); Alkaline Phosphatase 75 U/L (38-126); Aspartate Amino Transferase 26 U/L (14-36); Bilirubin,Total 0.4 mg/dL (0.2-1.3); Blood Urea Nitrogen 37 mg/dL (7-17); Calcium 7.3 mg/dL (8.4-10.2); Carbon Dioxide 26 mmol/L (22-30); Chloride 99 mmol/L (98-107); Estimated CRCL calculation 13 ml/min; Estimated Glomerular Filt Rate 9; Glucose 212 mg/dL (65-105); Magnesium 1.8 mg/dL (1.6-2.3); Phosphorus 3.5 mg/dL (2.5-4.5); Potassium 3.4 mmol/L (3.4-5.0); Sodium 133 mmol/L (137-145)
[2019-09-29 11:52] LABS: Anisocytosis 1+ (NORMAL); Burr Cells 1+ (NORMAL); Microcytosis 1+ (NORMAL); Platelet Estimate Adequate (Adequate); Polychromasia 1+ (NORMAL)
--- NOTE | 2019-09-29 12:10 | PM.PNNEP ---
Progress Note: A&P Assessment and Plan (1) End-stage renal disease on hemodialysis: Code(s): N18.6 - End stage renal disease; Z99.2 - Dependence on renal dialysis Status: Acute Assessment and Plan: Aurelia has end-stage renal disease. She had dialysis yesterday. Her blood pressure was a bit low on dialysis but we gave her L of fluid and improved. Last night blood pressure dropped. She has had continued diarrhea. She is getting more IV fluids now. (2) C. difficile colitis: Code(s): A04.72 - Enterocolitis due to Clostridium difficile, not specified as recurrent Status: Resolved Assessment and Plan: The patient has copious amounts of diarrhea. She has 5 kg under her dry weight. Her blood pressure is soft. I think she is still volume depleted. on dificid (3) Anemia: Qualifiers: Anemia type: iron deficiency Iron deficiency anemia type: unspecified iron deficiency Qualified Code(s): D50.9 - Iron deficiency anemia, unspecified Code(s): D64.9 - Anemia, unspecified Status: Chronic Assessment and Plan: Her hemoglobin is target for end-stage kidney disease. She received some Epogen today. 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 She is getting antibiotics and supportive care. (7) Hypertension: Qualifiers: Hypertension type: essential hypertension Qualified Code(s): I10 - Essential (primary) hypertension Code(s): I10 - Essential (primary) hypertension Status: Acute Assessment and Plan: Blood pressure is normal or low now. No antihypertensives on board. Subjective Date/time seen: 09/29/19 12:10 Interval history: Patient is still having diarrhea. Last night her blood pressure dropped into the 70s. He was moved to the ICU and given IV fluids in our blood pressure is up to 126. Still feels weak but otherwise feels okay. Review of Systems Cardiovascular: Cardiovascular: Reports no additional cardiovascular complaints Respiratory: Respiratory: Reports no additional respiratory complaints Gastrointestinal: Gastrointestinal: Reports no additional gastrointestinal complaints Genitourinary: Genitourinary: Reports no additional female genitourinary complaints Exam Narrative: Exam Narrative: Well developed well-nourished in no acute distress Lungs clear Heart regular without rub Abdomen bowel sounds positive soft nontender Extremities no edema Skin no rash Objective Data Vital Signs Vital Signs: Vital Signs - 24 hr 09/28/19 12:15 09/28/19 12:19 09/28/19 12:25 Temperature 37.3 C Pulse Rate 65 72 74 Respiratory Rate 20 Blood Pressure 116/64 105/47 L 133/57 L Pulse Oximetry 09/28/19 13:46 09/28/19 13:56 09/28/19 21:30 Temperature 37.6 C H Pulse Rate 80 80 134 H Respiratory Rate 22 H 26 H Blood Pressure 110/49 L Pulse Oximetry 95 97 09/28/19 21:40 09/28/19 21:45 09/28/19 21:52 Temperature 37.1 C Pulse Rate 143 H 150 H 15
[2019-09-29 12:32] LABS: Glucose Point of Care 200 (65-105)
[2019-09-29] MEDS: AMIODARONE 360 MG/D5W 200 ML 360 MG/200 ML BAG 16.7 MG IV CONT (14:00)
--- NOTE | 2019-09-29 16:40 | PC.NURSE ---
This patient, Aurelia Alcantara, was received from ICU-7 into [facility] on 09/29/19 at 1640. Personal belongings list checked and signed. Patient/family oriented to unit policies and routines
--- NOTE | 2019-09-29 17:08 | PC.NURSE ---
This patient, Aurelia Alcantara, was transferred to [ imu 232] on 09/29/19 at 1640. Personal belongings sent with patient. Belongings list checked and signed with receiving [ ]. Report given to [ginger kang ]. Appropriate documentation sent with patient.
--- NOTE | 2019-09-29 17:59 | ECG_ITS ---
Measurements Intervals [place] Rate: 72 P: [place]: 0 QRS: -16 QRSD: 113 T: 79 QT: 408 QTc: 448 Interpretive Statements SINUS RHYTHM ATRIAL PREMATURE COMPLEXES INTRAVENTRICULAR CONDUCTION DELAY POOR R WAVE PROGRESSION, ANTERIOR LEADS BORDERLINE ST-T WAVE ABNORMALITY- LATERAL LEADS ABNORMAL ECG Electronically Signed On 09-30-2019 7:10:02 CDT by Jered Vee D.O.
[2019-09-29] MEDS: SACCHAROMYCES BOULARDII 250 MG CAPSULE PO (18:00)
[2019-09-29 18:31] LABS: Glucose Point of Care 167 (65-105)
[2019-09-29] MEDS: ALPRAZOLAM 0.5 MG TABLET PO (21:07)
[2019-09-29] MEDS: SIMVASTATIN 20 MG TABLET 40 MG PO (21:08)
[2019-09-29 21:42] LABS: Glucose Point of Care 149 (65-105)
[2019-09-29] MEDS: ONDANSETRON INJ 4 MG/2 ML VIAL IV PUSH (23:27)
[2019-09-30] VITALS (27 sets, daily range): BP systolic 81–134; BP diastolic 38–82; PULSE 69–141; RESP 18–26; TEMP 36.2–37.3; O2SAT 93–98; BMI 45.2
[2019-09-30] MEDS: AMIODARONE 360 MG/D5W 200 ML 360 MG/200 ML BAG 33.3 MG IV CONT ×3 (02:27→22:12)
[2019-09-30 06:09] LABS: Basophils Absolute Auto 0.1 K/mm3 (0.0-0.1); Basophils Percent Auto 0.8 % (0.2-1.2); Eosinophils Absolute Auto 0.1 K/mm3 (0-0.3); Eosinophils Percent Auto 0.8 % (0-4.4); Hematocrit 32.7 % (37.0-47.0); Hemoglobin 9.8 g/dL (12.0-15.0); Immature Granulocyte Absolute 0.64 K/mm3 (0.00-0.031); Lymphocytes Absolute Auto 1.42 K/mm3 (0.9-3.2); Lymphocytes Percent Auto 11.1 % (18.3-44.2); Mean Corpuscular Hemoglobin 28.2 pg (26-34); Mean Platelet Volume 11.3 fl (7.4-10.4); Monocytes Absolute Auto 1.1 K/mm3 (0.1-0.6); Monocytes Percent Auto 8.4 % (2.6-8.5); Neutrophils Absolute Auto 9.5 K/mm3 (1.3-6.7); Neutrophils Percent Auto 73.9 % (45.5-73.1); Nucleated Red Blood Cells Absolute Auto 0.1 K/mm3 (0.0-0.012); Nucleated Red Blood Cells Perc 0.6 % (0.0-0.2); Platelet Count Result 166 k/mm3 (150-375); Red Blood Count 3.48 M/mm3 (4.2-5.4); White Blood Count 12.8 K/mm3 (4.5-10.0)
[2019-09-30 06:27] LABS: Alanine Aminotransferase 16 U/L (4-35); Albumin Level 2.3 g/dL (3.5-5.1); Alkaline Phosphatase 88 U/L (38-126); Aspartate Amino Transferase 27 U/L (14-36); Bilirubin,Total 0.3 mg/dL (0.2-1.3); Blood Urea Nitrogen 48 mg/dL (7-17); Calcium 7.7 mg/dL (8.4-10.2); Carbon Dioxide 27 mmol/L (22-30); Chloride 98 mmol/L (98-107); Estimated CRCL calculation 10 ml/min; Estimated Glomerular Filt Rate 7; Glucose 142 mg/dL (65-105); Magnesium 1.8 mg/dL (1.6-2.3); Phosphorus 3.2 mg/dL (2.5-4.5); Potassium 3.4 mmol/L (3.4-5.0); Sodium 133 mmol/L (137-145)
[2019-09-30 07:05] LABS: Platelet Estimate Adequate (Adequate)
[2019-09-30 07:07] LABS: Anisocytosis 1+ (NORMAL); Burr Cells 1+ (NORMAL); Ovalocytes 1+ (NORMAL); Poikilocytosis 1+ (NORMAL)
--- NOTE | 2019-09-30 07:41 | PM.PNNEP ---
Progress Note: A&P Assessment and Plan (1) End-stage renal disease on hemodialysis: Code(s): N18.6 - End stage renal disease; Z99.2 - Dependence on renal dialysis Status: Acute Assessment and Plan: Aurelia has end-stage renal disease. She is scheduled for dialysis today. Her blood pressure was a bit low on dialysis but we gave her L of fluid and improved. Last night blood pressure dropped. She has had continued diarrhea. She is getting more IV fluids now. (2) C. difficile colitis: Code(s): A04.72 - Enterocolitis due to Clostridium difficile, not specified as recurrent Status: Resolved Assessment and Plan: The patient has copious amounts of diarrhea. She is still having belly pain. on dificid (3) Anemia: Qualifiers: Anemia type: iron deficiency Iron deficiency anemia type: unspecified iron deficiency Qualified Code(s): D50.9 - Iron deficiency anemia, unspecified Code(s): D64.9 - Anemia, unspecified Status: Chronic Assessment and Plan: Hemoglobin is 9.8. She is getting Epogen per dialysis. (4) Suspected sleep apnea: Code(s): R29.818 - Other symptoms and signs involving the nervous system Status: Acute Assessment and Plan: This is going to be evaluated as an outpatient (5) Type 2 diabetes mellitus: Qualifiers: Diabetes mellitus group home insulin use: with group home use Diabetes mellitus complication status: with hyperglycemia Qualified Code(s): E11.65 - Type 2 diabetes mellitus with hyperglycemia; Z79.4 - [facility] (current) use of insulin Code(s): E11.9 - Type 2 diabetes mellitus without complications Status: Acute Assessment and Plan: Patient is on Accu-Cheks and sliding-scale insulin (6) Sepsis: Qualifiers: Sepsis type: sepsis due to unspecified organism Sepsis acute organ dysfunction status: without acute organ dysfunction Qualified Code(s): A41.9 - Sepsis, unspecified organism Code(s): A41.9 - Sepsis, unspecified organism Status: Acute Assessment and Plan: She has leukocytosis, hypotension. She is getting antibiotics and supportive care. Will restart IV fluids. I feel the blood pressure may drop since she is still having diarrhea. (7) Hypertension: Qualifiers: Hypertension type: essential hypertension Qualified Code(s): I10 - Essential (primary) hypertension Code(s): I10 - Essential (primary) hypertension Status: Acute Assessment and Plan: Blood pressure is normal or low now. No antihypertensives on board. Subjective Date/time seen: 09/30/19 07:41 Interval history: Patient is still having diarrhea. Last night her blood pressure dropped into the 70s. He was moved to the ICU and given IV fluids in our blood pressure is up to 126. Still feels weak but otherwise feels okay. Review of Systems Cardiovascular: Cardiovascular: Reports no additional cardiovascular complaints Respiratory: Respiratory: Reports no additional respiratory complaints Gastrointestinal: Gastrointestinal: Reports no additional gastrointestinal complaints Genitourinary: Genitourinary: Reports no additional female genitourinary complaints Exam Narrative: Exam Narrative: Well developed well-nourished in no acute distress Lungs clear bilaterally Heart regular without rub Abdomen bowel sounds positive soft nontender Extremities no edema or cyanosis Skin no rash or subcu nodules Objective Data Vital Signs Vital Signs: Vital Signs - 24 hr 09/29/19 08:00 09/29/19 10:00 09/29/19 10:42 Temperature 36.7 C Pulse Rate 79 75 94 Respiratory Rate 22 H 20 Blood Pressure 97/55 L 121/60 Pulse Oximetry 97 97 09/29/19 12:00 09/29/19 14:00 09/29/19 15:45 Temperature 36.6 C 36.6 C Pulse Rate 64 129 H 113 H Respiratory Rate 22 H 24 H 22 H Blood Pressure 111/52 L 117/61 101/58 L Pulse Oximetry 96 96 97 09/29/19 16:0
[2019-09-30 08:59] LABS: Glucose Point of Care 121 (65-105)
[2019-09-30] MEDS: SACCHAROMYCES BOULARDII 250 MG CAPSULE PO (09:50)
[2019-09-30] MEDS: FAMOTIDINE 20 MG TABLET PO ×2 (09:50→21:12)
[2019-09-30] MEDS: ASPIRIN 81 MG ENTERIC TABLET PO (09:50)
[2019-09-30] MEDS: FIDAXOMICIN 200 MG TABLET PO ×2 (09:50→21:12)
[2019-09-30] MEDS: TOLNAFTATE 1% POWDER 45 GM BTL 1 APPLIC TOPICAL ×2 (09:50→22:13)
--- NOTE | 2019-09-30 09:51 | P.PNIM_ITS ---
Progress Note: A&P Assessment and Plan (1) C. difficile colitis: Code(s): A04.72 - Enterocolitis due to Clostridium difficile, not specified as recurrent Status: Acute Assessment and Plan: * Given recent C diff, likely this is a recurrence and there is no need to retest. * Fidaxomicin first dose 4/3 PM. * 4/6 PM will receive dose 7 of 20 (10 days) * Plan tapering dose of vancomycin following the 10 day course of fidaxomicin (2) Atrial fibrillation with RVR: Code(s): I48.91 - Unspecified atrial fibrillation Status: Acute Assessment and Plan: * /6Continue amiodarone IV as atrial fib recurred * 09/29 Added IV metoprolol * 09/29 Added IV digoxin 250mcg x 1 * 09/29 Fluid bolus for hypotension * Echo 09/03/19 with LVEF 65-70%, severe pulmonary HTN (60mmHg) * Continue ASA (high risk for anticoagulation with acute colitis) (3) End-stage renal disease on hemodialysis: Code(s): N18.6 - End stage renal disease; Z99.2 - Dependence on renal dialysis Status: Acute Assessment and Plan: * Dr. Tang consulted for hemodialysis. (4) Chronic anemia: Code(s): D64.9 - Anemia, unspecified Status: Acute Assessment and Plan: * Hemoglobin and hematocrit are stable on review of previous labs * Likely anemia of chronic kidney disease (5) Suspected sleep apnea: Code(s): R29.818 - Other symptoms and signs involving the nervous system Status: Acute Assessment and Plan: * Pulmonology recommends BiPAP, 14/5 with a rate of 14, to be used while sleeping. * Patient is awaiting formal outpatient polysomnogram. (6) Type 2 diabetes mellitus: Qualifiers: Diabetes mellitus watermaster insulin use: with watermaster use Diabetes mellitus complication status: with hyperglycemia Qualified Code(s): E11.65 - Type 2 diabetes mellitus with hyperglycemia; Z79.4 - ad terminal makeup operator (current) use of insulin Code(s): E11.9 - Type 2 diabetes mellitus without complications Status: Acute Assessment and Plan: * Well controlled with a recent hemoglobin A1c of 6.1%. * Low-dose Lantus. * Sliding scale insulin, Accu-Cheks, and hypoglycemic protocol. * 4/5 FBS 141, 4/6 121 (7) Hypertension: Qualifiers: Hypertension type: essential hypertension Qualified Code(s): I10 - Essential (primary) hypertension Code(s): I10 - Essential (primary) hypertension Status: Acute Assessment and Plan: * Due to soft blood pressure continue to hold antihypertensives (8) Sepsis: Qualifiers: Sepsis type: sepsis due to unspecified organism Sepsis acute organ dysfunction status: without acute organ dysfunction Qualified Code(s): A41.9 - Sepsis, unspecified organism Code(s): A41.9 - Sepsis, unspecified organism Status: Acute Assessment and Plan: * Present on admission and supported by relative hypotension (responsive to IV fluids), fever, and leukocytosis in the setting of C diff colitis. * Resolved (9) Pulmonary hypertension: Code(s): I27.20 - Pulmonary hypertension, unspecified Status: Acute (10) Cirrhosis: Code(s): K74.60 - Unspecified cirrhosis of liver Status: Acute Assessment and Plan: * As documented on CT Abd/pelvis * Mild hypersplenism * Chronic with unclear etiology Subjective Date/time seen: 09/30/19 09:51 Interval history: Follow-up for: C difficile colitis, end-stage renal disease on hemodialysi
--- NOTE | 2019-09-30 09:51 | PM.IMPN ---
Progress Note: A&P Assessment and Plan (1) C. difficile colitis: Code(s): A04.72 - Enterocolitis due to Clostridium difficile, not specified as recurrent Status: Acute Assessment and Plan: Given recent C diff, likely this is a recurrence and there is no need to retest. Fidaxomicin first dose 4/3 PM. 4/6 PM will receive dose 7 of 20 (10 days) Plan tapering dose of vancomycin following the 10 day course of fidaxomicin (2) Atrial fibrillation with RVR: Code(s): I48.91 - Unspecified atrial fibrillation Status: Acute Assessment and Plan: ontinue amiodarone IV as atrial fib recurred 09/29 Added IV metoprolol 09/29 Added IV digoxin 250mcg x 1 09/29 Fluid bolus for hypotension Echo 09/03/19 with LVEF 65-70%, severe pulmonary HTN (60mmHg) Continue ASA (high risk for anticoagulation with acute colitis) (3) End-stage renal disease on hemodialysis: Code(s): N18.6 - End stage renal disease; Z99.2 - Dependence on renal dialysis Status: Acute Assessment and Plan: Dr. Tang consulted for hemodialysis. (4) Chronic anemia: Code(s): D64.9 - Anemia, unspecified Status: Acute Assessment and Plan: Hemoglobin and hematocrit are stable on review of previous labs Likely anemia of chronic kidney disease (5) Suspected sleep apnea: Code(s): R29.818 - Other symptoms and signs involving the nervous system Status: Acute Assessment and Plan: Pulmonology recommends BiPAP, 14/5 with a rate of 14, to be used while sleeping. Patient is awaiting formal outpatient polysomnogram. 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 Low-dose Lantus. Sliding scale insulin, Accu-Cheks, and hypoglycemic protocol. 09/28 FBS 141, 09/29 121 (7) Hypertension: Qualifiers: Hypertension type: essential hypertension Qualified Code(s): I10 - Essential (primary) hypertension Code(s): I10 - Essential (primary) hypertension Status: Acute Assessment and Plan: Due to soft blood pressure continue to hold antihypertensives (8) Sepsis: Qualifiers: Sepsis type: sepsis due to unspecified organism Sepsis acute organ dysfunction status: without acute organ dysfunction Qualified Code(s): A41.9 - Sepsis, unspecified organism Code(s): A41.9 - Sepsis, unspecified organism Status: Acute Assessment and Plan: Present on admission and supported by relative hypotension (responsive to IV fluids), fever, and leukocytosis in the setting of C diff colitis. Resolved (9) Pulmonary hypertension: Code(s): I27.20 - Pulmonary hypertension, unspecified Status: Acute (10) Cirrhosis: Code(s): K74.60 - Unspecified cirrhosis of liver Status: Acute Assessment and Plan: As documented on CT Abd/pelvis Mild hypersplenism Chronic with unclear etiology Subjective Date/time seen: 09/30/19 09:51 Interval history: Follow-up for: C difficile colitis, end-stage renal disease on hemodialysis, Atrial fibrillation with rapid ventricular response. Date of service: 09/30/2019 Subjective: Abdominal cramps. Diarrhea. Nausea. Anorexia. No bleeding. Denied chest discomfort or shortness of breath. Denied edema. Denied bleeding. Denied c/o. Generalized weakness and fatigue. Review of Systems Review of Systems: All systems reviewed & are unremarkable except as noted in HPI and below Exam Narrative: Exam Narrative: HEENT: EOMI, PERRL, sclera nonicteric, pharyng
--- NOTE | 2019-09-30 11:09 | PM.PNCARD ---
Progress Note: A&P Assessment and Plan (1) Atrial fibrillation with RVR: Code(s): I48.91 - Unspecified atrial fibrillation Status: Acute Assessment and Plan: 69-year-old female hypertension, diastolic dysfunction, diabetes mellitus on insulin, CKD on hemodialysis, history of CVA in 2011 with left-sided weakness, peripheral neuropathy hyperlipidemia. Recent C diff colitis, admitted to the hospital with fever and abdominal discomfort with CT scan of the abdomen showing progression of diffuse colitis which could be infectious, inflammatory or ischemic in etiology. During hospitalization has developed atrial fibrillation with RVR, was initiated on IV amiodarone, converted to sinus rhythm and overnight went back into atrial fibrillation with rapid ventricular response. Continue IV amiodarone for now. IV found to be pulled out with small amount of fluid in the bed. Unable to assess how long the IV was pulled out. Changed to other site. Blood pressure remains soft. Metoprolol added by Dr Queen this am. Not sure her BP will tolerate it She has diffuse colitis on CT scan. At this time, she would not be an ideal candidate for anticoagulation. However, once she is clinically stable, her candidacy for chronic anticoagulation needs to be determined. Continue to monitor on telemetry. 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 difficile colitis: Code(s): A04.72 - Enterocolitis due to Clostridium difficile, not specified as recurrent Status: Resolved Assessment and Plan: Management as per primary team Additional Plan Plan discussed with Dr. Toth 1120 09/30/2019 Time Spent With Patient Time with patient: less than 15 minutes Subjective Date/time seen: 09/30/19 11:09 Interval history: Follow-up for: Atrial fibrillation with rapid ventricular response. C difficile colitis, end-stage renal disease on hemodialysis Date of service: 09/30/2019 Subjective: Having some abdominal pain. Denied chest discomfort or shortness of breath. Chronic oxygen at 2 L. nasal cannula. Brief episode of lightheadedness. No palpitations. Review of Systems Constitutional: Constitutional: Denies chills, Reports fatigue, Denies fever(s) and Denies headache(s) Eyes: Eyes: Denies blurry vision, Denies change in vision, Denies loss of vision and Denies eye pain ENT: Reports Normal hearing present, Denies headache(s), Denies lip swelling, Denies epistaxis and Denies sore throat Cardiovascular: Cardiovascular: Denies chest pain, Denies syncope, Reports irregular heart rhythm, Denies lightheadedness and Reports dyspnea (At baseline) Respiratory: Respiratory: Denies cough, Reports dyspnea (At baseline) and Denies wheezing Gastrointestinal: Gastrointestinal: Reports abdominal pain, Denies melena, Denies nausea and Denies vomiting Musculoskeletal: Musculoskeletal: Denies myalgias, Denies muscle cramps and Denies muscle weakness Integumentary/Breasts: Skin/Breast: Denies pruritus and Denies rash Neurologic: Reports Normal hearing present, Denies behavioral changes, Denies syncope, Denies headache(s) and Denies loss of vision Psychiatric: Psychiatric: Denies anxiety, Denies behavioral changes and Denies depression Endocrine: Endocrine: Reports fatigue, Denies polydipsia and Denies polyuria Hematologic/Lymphatic: Hematologic/Lymphatic: Denies easy bleeding and Denies easy bruising Allergic/Immunologic: Allergic/Immunologic: Denies lip swelling and Denies wheezing Exam Const: General: cooperative and no acute distress Nutritional Appearance: obese HENMT: Head: normocephalic and atraumatic Ears: hearing grossly normal bilaterally and external ears normal General nose exam: Normal
[2019-09-30] MEDS: METOPROLOL TARTRATE INJ 5 MG/5 ML VIAL 2.5 MG IV PUSH (11:13)
[2019-09-30] MEDS: SODIUM CHLORIDE 0.9% IV 500 ML IV CONT ×2 (13:12→16:09)
[2019-09-30 13:16] LABS: Glucose Point of Care 130 (65-105)
--- NOTE | 2019-09-30 14:53 | WPDINFPN2 ---
Progress Note: A&P Assessment and Plan (1) C. difficile colitis: Code(s): A04.72 - Enterocolitis due to Clostridium difficile, not specified as recurrent Status: Resolved Assessment and Plan: Relapsed C diff infection REC Fidaxomicin # 4 / 10 days, followed by vancomycin orally slow taper Subjective Date/time seen: 09/30/19 14:53 Objective Data Vital Signs Vital Signs: Vital Signs - 24 hr 09/29/19 15:45 09/29/19 16:00 09/29/19 16:07 Temperature 36.6 C Pulse Rate 113 H 119 H Respiratory Rate 22 H Blood Pressure 101/58 L 102/64 Pulse Oximetry 97 09/29/19 18:07 09/29/19 20:00 09/29/19 20:39 Temperature 36.8 C Pulse Rate 79 76 93 Respiratory Rate 20 Blood Pressure 102/56 L Pulse Oximetry 98 09/29/19 22:00 09/30/19 00:00 09/30/19 01:55 Temperature 37.1 C Pulse Rate 79 69 69 Respiratory Rate 20 25 H Blood Pressure 129/76 Pulse Oximetry 97 95 09/30/19 02:00 09/30/19 04:00 09/30/19 06:00 Temperature 37.3 C Pulse Rate 71 71 77 Respiratory Rate 20 Blood Pressure 134/71 Pulse Oximetry 98 09/30/19 08:00 09/30/19 10:00 09/30/19 11:13 Temperature 36.4 C Pulse Rate 79 141 H 137 H Respiratory Rate 18 Blood Pressure 95/40 L Pulse Oximetry 93 09/30/19 12:00 09/30/19 13:02 09/30/19 14:00 Temperature 36.2 C L Pulse Rate 138 H 134 H Respiratory Rate 22 H Blood Pressure 81/47 L 82/52 L Pulse Oximetry 94 Intake/Output Intake/Output: Intake & Output 09/27/19 09/28/19 09/29/19 09/30/19 23:59 23:59 23:59 23:59 Intake Total 700 1760 1890 545 Output Total 0 Balance 700 1760 1890 545 Meds/Results Medications: Active Medications Generic Name Dose Route Start Last Admin Trade Name Freq PRN Reason Stop Dose Admin Acetaminophen 650 mg 09/30/19 01:35 Tylenol Tablet PO Q4H PRN Mild Pain (1-3) or Fever Alprazolam 0.5 mg 09/27/19 21:21 09/29/19 21:07 Xanax PO 0.5 mg TID PRN Administration Anxiety Aspirin 81 mg 09/28/19 09:00 09/30/19 09:50 Aspirin Ec PO 81 mg DAILY DEJON Administration Collagenase 1 applic 09/28/19 09:00 09/30/19 13:25 Santyl Oint TOPICAL Not Given DAILY DEJON Dextrose 12.5 gm 09/27/19 21:09 Dextrose 50% Syringe IV PUSH PRN PRN Hypoglycemia Protocol Epoetin Cameron 10,000 units 09/30/19 11:00 Epogen IV PUSH MOWEFR DEJON Famotidine 20 mg 09/28/19 09:00 09/30/19 09:50 Pepcid PO 20 mg Q12HR DEJON Administration Fidaxomicin 200 mg 09/27/19 21:00 09/30/19 09:50 Dificid PO 10/07/19 21:01 200 mg Q12HR DEJON Administration Glucagon 1 mg 09/27/19 21:09 Glucagon For Inj IM PRN PRN Hypoglycemia Protocol Glucose 15 gm 09/27/19 21:09 Glutose 15 PO PRN PRN Hypoglycemia Protocol Dextrose 1,000 mls @ 100 mls/hr 09/27/19 21:09 Dextrose 5% 1,000 Ml IVPB PRN PRN Hypoglycemia Protocol Amiodarone HCl/Dextrose 360 mg in 200 mls @ 33.333 mls/hr 09/29/19 04:00 09/30/19 09:52 Nexterone 360 Mg/D5w 200 Ml IV CONT Infused .Q6H DEJON Infusion 1 MG/MIN Sodium Chloride 1,000 mls @ 75 mls/hr 09/30/19 07:45 Normal Saline Iv IV CONT .[id number] [facility] Insulin Aspart 3 - 6 units 09/28/19 08:00 09/30/19 13:11 Novolog SUB-Q Not Given TIDWM [facility] Protocol Metoprolol Tartrate 2.5 mg 09/30/19 12:00 09/30/19 11:13 Lopressor Inj IV PUSH 2.5 mg Q6HR DEJON Administration Prochlorperazine Edisylate 10 mg 09/30/19 09:50 Compazine IV PUSH Q6H PRN Nausea And Vomiting Saccharomyces Boulardii 250 mg 09/29/19 17:00 09/30/19 09:50 Florastor PO 250 mg BID DEJON Administration Simvastatin 40 mg 09/28/19 21:00 09/29/19 21:08 Zocor PO 40 mg HS DEJON Administration Tolnaftate 1 applic 09/28/19 09:00 09/30/19 09:50 Tolnaftate 1% Powder TOPICAL 1 applic Q12HR DEJON Administration Radiology Results
[2019-09-30] MEDS: SODIUM CHLORIDE 0.9% IV 1,000 ML 75 ML IV CONT ×2 (14:59→21:12)
--- NOTE | 2019-09-30 16:05 | CONS_ITS ---
DATE OF CONSULTATION: 09/30/2019 REASON FOR CONSULTATION: C. difficile infection. HISTORY OF PRESENT ILLNESS: I was not notified of this consult until about 1 hour ago. The patient was originally admitted in July with cellulitis of the abdominal wall. She was given imipenem and vancomycin, later followed by systemic and topical antifungal. She was admitted on August 30 with diarrhea. She was found to have positive C. difficile infection by PCR testing and was given 10 days of oral vancomycin. She was discharged in improved condition on September 17 with her discharge being delayed by initiation of hemodialysis. She was without diarrhea for approximately 1 week, but was readmitted here on the with 4 days of recurrent diarrhea described as watery bowel movements 4 to 6 times per day. This is accompanied by abdominal pain in the extreme right and the left lower quadrant as well as in the suprapubic area. She also has had poor appetite and nausea and gags on her food at times, but without aspiration symptoms. Here, she has been started on fidaxomicin and consultation requested. No fever, chills, nor sweats, and no other recent antibiotics for any other purpose. PRESENT MEDICATIONS: List reviewed. No immunosuppressants. HABITS: No alcohol or drug use and nonsmoker. ALLERGIES: CLINDAMYCIN, UNKNOWN REACTION. PENICILLIN, HIVES. SULFA, HIVES. PAST MEDICAL HISTORY: In addition to the above, chronic renal failure, AF with RVR, chronic anemia, stasis dermatitis, cirrhosis, previous stroke, hyperlipidemia, hypertension, osteoarthritis, seasonal allergies, PAH, type 2 diabetes mellitus, arthroscopic knee surgery, BTL, umbilical hernia repair. FAMILY HISTORY: Alzheimer's, CAD, hypertension, breast cancer. SOCIAL HISTORY: The patient is , lives locally, children locally and does not work outside the home. REVIEW OF SYSTEMS: Poor appetite, generalized weakness, weight loss, chronic obesity, edema. 14-point review is otherwise negative. PHYSICAL EXAMINATION: GENERAL: This is an elderly female who appears her actual age. No acute distress. VITAL SIGNS: 134, 82/52, similar to previous levels, afebrile, respirations 22, 94%. SKIN: No rashes. Warm and dry. No ecchymoses. HEENT: The conjunctivae are normal. Pupils equal, round, reactive to light. The oropharynx and oral mucosa are normal and normal dentition. NECK: No masses. No thyromegaly. No meningismus. CHEST: She has a right medial clavicle dialysis catheter without erythema, tenderness, or discharge at the entry site. LUNGS: Clear to auscultation and percussion. CARDIAC: Tachycardic, irregular. No murmurs. ABDOMEN: Morbidly obese, nontender, no masses, nondistended. Normal bowel sounds. EXTREMITIES: Trace ankle edema, bilateral. Normal muscle tone and muscle mass. LABORATORY DATA: C. diff assay was not repeated, was positive as noted above prior admission. Blood cultures have all been no growth over time. Urine culture from a month ago had Citrobacter freundii. White blood cell count 12.8 and was 12.9 on the 4th, hemoglobin 9.8, platelets are 166. Her differential minimal left shift. Prothrombin time 14.3. She has mild hyponatremia. BUN 48, creatinine 6.0, glucose 142, calcium 7.7, prealbumin is 2.3. UA not repeated. RADIOLOGY DATA: CT abdomen and pelvis showed worsening bowel wall thickening in the lower colon since 08/31/2019. She also had cirrhosis finding with mild splenomegaly, also cardiomegaly and fat containing hernias, cyst in the left kidney, fibroids, atherosclerosis, spondylosis. ASSESSMENT: 1. Diarrhea with leukocytosis and abdominal pain, due to relapsed Clostridium difficile infection. Other causes of her diarrhea are very unlikely. I doubt that this is
[2019-09-30] MEDS: DIGOXIN INJ 250 MCG/ML 2 ML AMP (*BKC) IV PUSH (16:09)
[2019-09-30 21:08] LABS: Glucose Point of Care 116 (65-105)
[2019-09-30] MEDS: PROCHLORPERAZINE EDISYLATE 10 MG/2 ML VIAL IV PUSH (21:11)
[2019-09-30] MEDS: SIMVASTATIN 20 MG TABLET 40 MG PO (21:11)
[2019-09-30] MEDS: AMIODARONE 150 MG/D5W 100 ML 150 MG/100 ML BAG 600 MG IV CONT (21:12)
[2019-09-30] MEDS: CHOLESTYRAMINE LIGHT 4 GM POWD.PACK PO (21:13)
[2019-10-01] VITALS (16 sets, daily range): BP systolic 92–124; BP diastolic 38–59; PULSE 65–147; RESP 16–28; TEMP 36.1–37; O2SAT 93–98
[2019-10-01] MEDS: DIGOXIN INJ 250 MCG/ML 2 ML AMP (*BKC) 500 MCG IV PUSH (00:29)
[2019-10-01 03:10] LABS: Glucose Point of Care 106 (65-105)
[2019-10-01] MEDS: AMIODARONE 360 MG/D5W 200 ML 360 MG/200 ML BAG 33.3 MG IV CONT ×4 (04:14→20:19)
[2019-10-01 04:46] LABS: Hematocrit 31.5 % (37.0-47.0); Hemoglobin 9.4 g/dL (12.0-15.0); Mean Corpuscular HGB Conc 29.8 g/dl (32-36); Mean Corpuscular Hemoglobin 27.8 pg (26-34); Mean Corpuscular Volume 93.2 fl (80-100); Mean Platelet Volume 11.4 fl (7.4-10.4); Platelet Count Result 128 k/mm3 (150-375); Red Blood Count 3.38 M/mm3 (4.2-5.4); Red Cell Distribution Width 16.3 % (11.5-14.5); White Blood Count 11.6 K/mm3 (4.5-10.0)
[2019-10-01 05:04] LABS: Blood Urea Nitrogen 34 mg/dL (7-17); Calcium 7.4 mg/dL (8.4-10.2); Carbon Dioxide 31 mmol/L (22-30); Chloride 98 mmol/L (98-107); Estimated CRCL calculation 15 ml/min; Estimated Glomerular Filt Rate 11; Glucose 110 mg/dL (65-105); Phosphorus 2.5 mg/dL (2.5-4.5); Potassium 3.3 mmol/L (3.4-5.0); Sodium 134 mmol/L (137-145)
[2019-10-01 08:54] LABS: Glucose Point of Care 109 (65-105)
[2019-10-01] MEDS: SACCHAROMYCES BOULARDII 250 MG CAPSULE PO ×2 (09:24→16:26)
[2019-10-01] MEDS: ASPIRIN 81 MG ENTERIC TABLET PO (09:24)
[2019-10-01] MEDS: FIDAXOMICIN 200 MG TABLET PO ×2 (09:24→20:15)
[2019-10-01] MEDS: FAMOTIDINE 20 MG TABLET PO ×2 (09:24→20:15)
[2019-10-01] MEDS: TOLNAFTATE 1% POWDER 45 GM BTL 1 APPLIC TOPICAL ×2 (09:25→20:15)
[2019-10-01] MEDS: SODIUM CHLORIDE 0.9% IV 1,000 ML 75 ML IV CONT (09:28)
--- NOTE | 2019-10-01 09:30 | PM.PNNEP ---
Progress Note: A&P Assessment and Plan (1) End-stage renal disease on hemodialysis: Code(s): N18.6 - End stage renal disease; Z99.2 - Dependence on renal dialysis Status: Acute Assessment and Plan: Aurelia has end-stage renal disease. She had dialysis yesterday. Her blood pressure was a bit low on dialysis last night. Fluids helped. (2) C. difficile colitis: Code(s): A04.72 - Enterocolitis due to Clostridium difficile, not specified as recurrent Status: Acute Assessment and Plan: The patient has copious amounts of diarrhea. She is still having belly pain but it is better today.. on dificid (3) Anemia: Qualifiers: Anemia type: iron deficiency Iron deficiency anemia type: unspecified iron deficiency Qualified Code(s): D50.9 - Iron deficiency anemia, unspecified Code(s): D64.9 - Anemia, unspecified Status: Chronic Assessment and Plan: Hemoglobin is 9.4. She is getting Epogen per dialysis. (4) Suspected sleep apnea: Code(s): R29.818 - Other symptoms and signs involving the nervous system Status: Acute Assessment and Plan: This is going to be evaluated as an outpatient (5) Type 2 diabetes mellitus: Qualifiers: Diabetes mellitus custodial insulin use: with rn long term care use Diabetes mellitus complication status: with hyperglycemia Qualified Code(s): E11.65 - Type 2 diabetes mellitus with hyperglycemia; Z79.4 - retirement (current) use of insulin Code(s): E11.9 - Type 2 diabetes mellitus without complications Status: Acute Assessment and Plan: Patient is on Accu-Cheks and sliding-scale insulin (6) Sepsis: Qualifiers: Sepsis type: sepsis due to unspecified organism Sepsis acute organ dysfunction status: without acute organ dysfunction Qualified Code(s): A41.9 - Sepsis, unspecified organism Code(s): A41.9 - Sepsis, unspecified organism Status: Acute Assessment and Plan: She has leukocytosis, hypotension. She is getting antibiotics and supportive care. Will increase IV fluids. (7) Hypertension: Qualifiers: Hypertension type: essential hypertension Qualified Code(s): I10 - Essential (primary) hypertension Code(s): I10 - Essential (primary) hypertension Status: Acute Assessment and Plan: Blood pressure is normal or low now. No antihypertensives on board. Subjective Date/time seen: 10/01/19 09:30 Interval history: Patient is still having diarrhea. She has a FEES in now. Her belly pain is better. Review of Systems Cardiovascular: Cardiovascular: Reports no additional cardiovascular complaints Respiratory: Respiratory: Reports no additional respiratory complaints Gastrointestinal: Gastrointestinal: Reports no additional gastrointestinal complaints Genitourinary: Genitourinary: Reports no additional female genitourinary complaints Exam Narrative: Exam Narrative: Well developed well-nourished in no acute distress Lungs clear bilaterally Heart regular without rub Abdomen bowel sounds positive soft less tender. Extremities no edema Skin no rash Objective Data Vital Signs Vital Signs: Vital Signs - 24 hr 09/30/19 10:00 09/30/19 11:13 09/30/19 12:00 Temperature 36.2 C L Pulse Rate 141 H 137 H 138 H Respiratory Rate 22 H Blood Pressure 81/47 L Pulse Oximetry 94 09/30/19 13:02 09/30/19 14:00 09/30/19 15:04 Temperature Pulse Rate 134 H Respiratory Rate Blood Pressure 82/52 L 91/57 L Pulse Oximetry 09/30/19 16:00 09/30/19 16:09 09/30/19 17:01 Temperature 36.8 C 37.0 C Pulse Rate 133 H 136 H 88 Respiratory Rate 22 H 20 Blood Pressure 99/73 L 107/51 L Pulse Oximetry 97 09/30/19 17:15 09/30/19 17:30 09/30/19 17:45 Temperature Pulse Rate 101 H 72 76 Respiratory Rate Blood Pressure 116/42 L 97/44 L 90/39 L Pulse Oximetry 09/30/19 18:00 09/30/19 18:
[2019-10-01] MEDS: ACETAMINOPHEN 325 MG TABLET 650 MG PO ×2 (11:23→16:26)
[2019-10-01] MEDS: POTASSIUM CHLORIDE 20 MEQ TABLET PO (11:24)
[2019-10-01 12:13] LABS: Glucose Point of Care 131 (65-105)
[2019-10-01] MEDS: CHOLESTYRAMINE LIGHT 4 GM POWD.PACK PO ×2 (13:03→18:08)
--- NOTE | 2019-10-01 13:54 | WPDINFPN2 ---
Progress Note: A&P Assessment and Plan (1) C. difficile colitis: Code(s): A04.72 - Enterocolitis due to Clostridium difficile, not specified as recurrent Status: Acute Assessment and Plan: 1. Relapsed C diff infection, still with high WBC. 2. Cirrhosis 3. CRF on HD REC Fidaxomicin # 5 / 10 days, followed by vancomycin orally slow taper over 6 weeks. Nutritional support underway Subjective Date/time seen: 10/01/19 13:54 Interval history: flexiseal now in --> liquid brown. No abd pain, though + pain at rectum with tube in place Exam Narrative: Exam Narrative: afebrile Const: General: no acute distress Eyes: General: appearance normal, both eyes and all related structures Resp: Effort & Inspection: normal respiratory effort Auscultation: clear to auscultation bilaterally Cardio: Rate: tachycardic Rhythm: regular rhythm Heart sounds: Gallop heart sound present GI: Inspection: non-distended GI Palp: Yes Soft to palpation, No Tenderness to palpation present (GI) and No Guarding due to palpation present (GI) Objective Data Vital Signs Vital Signs: Vital Signs - 24 hr 09/30/19 14:00 09/30/19 15:04 09/30/19 16:00 Temperature 36.8 C Pulse Rate 134 H 133 H Respiratory Rate 22 H Blood Pressure 91/57 L 99/73 L Pulse Oximetry 97 09/30/19 16:09 09/30/19 17:01 09/30/19 17:15 Temperature 37.0 C Pulse Rate 136 H 88 101 H Respiratory Rate 20 Blood Pressure 107/51 L 116/42 L Pulse Oximetry 09/30/19 17:30 09/30/19 17:45 09/30/19 18:00 Temperature Pulse Rate 72 76 80 Respiratory Rate Blood Pressure 97/44 L 90/39 L 102/38 L Pulse Oximetry 09/30/19 18:15 09/30/19 18:30 09/30/19 19:00 Temperature Pulse Rate 72 90 102 H Respiratory Rate Blood Pressure 101/41 L 124/47 L 107/47 L Pulse Oximetry 09/30/19 19:45 09/30/19 20:00 09/30/19 20:24 Temperature 36.4 C 36.3 C L Pulse Rate 100 133 H 71 Respiratory Rate 18 20 26 H Blood Pressure 110/82 100/41 L Pulse Oximetry 94 95 09/30/19 22:00 10/01/19 00:00 10/01/19 00:29 Temperature 36.6 C Pulse Rate 137 H 147 H 138 H Respiratory Rate 16 Blood Pressure 92/43 L Pulse Oximetry 98 10/01/19 02:00 10/01/19 03:17 10/01/19 04:00 Temperature 36.4 C L Pulse Rate 108 H 118 H 121 H Respiratory Rate 24 H Blood Pressure 124/57 L Pulse Oximetry 96 10/01/19 06:00 10/01/19 08:00 10/01/19 09:11 Temperature 36.3 C L Pulse Rate 108 H 106 H Respiratory Rate 22 H Blood Pressure 122/54 L Pulse Oximetry 97 93 10/01/19 10:00 10/01/19 12:00 Temperature 36.3 C L Pulse Rate 118 H 81 Respiratory Rate 28 H Blood Pressure 120/59 L Pulse Oximetry 97 Intake/Output Intake/Output: Intake & Output 09/28/19 09/29/19 09/30/19 10/01/19 23:59 23:59 23:59 23:59 Intake Total 1760 1890 1745 2360 Output Total 0 289 Balance 1760 1890 1456 2360 Meds/Results Medications: Active Medications Generic Name Dose Route Start Last Admin Trade Name Freq PRN Reason Stop Dose Admin Acetaminophen 650 mg 09/30/19 01:35 10/01/19 11:23 Tylenol Tablet PO 650 mg Q4H PRN Administration Mild Pain (1-3) or Fever Alprazolam 0.5 mg 09/27/19 21:21 09/29/19 21:07 Xanax PO 0.5 mg TID PRN Administration Anxiety Aspirin 81 mg 09/28/19 09:00 10/01/19 09:24 Aspirin Ec PO 81 mg DAILY DEJON Administration Cholestyramine Resin 4 gm 09/30/19 21:00 10/01/19 13:03 Questran Light Packet PO 4 gm BID@1000,1800 DEJON Administration Dextrose 12.5 gm 09/27/19 21:09 Dextrose 50% Syringe IV PUSH PRN PRN Hypoglycemia Protocol Epoetin Cameron 10,000 units 09/30/19 11:00 09/30/19 21:14 Epogen IV PUSH Not Given [facility]OWE[facility] Famotidine 20 mg 09/28/19 09:00 10/01/19 09:24 Pepcid PO 20 mg Q12HR DEJON Administration Fidaxomicin 200 mg 09/27/19 21:00 10/01/19 09:24 Dificid PO 10/07/19 21:01 200 mg Q12HR DEJON Adm
--- NOTE | 2019-10-01 14:02 | PM.PNCARD ---
Progress Note: A&P Assessment and Plan (1) Atrial fibrillation with RVR: Code(s): I48.91 - Unspecified atrial fibrillation Status: Acute Assessment and Plan: Developed atrial fibrillation with RVR, was initiated on IV amiodarone, converted to sinus rhythm and overnight on 09/29/2019 went back into atrial fibrillation with rapid ventricular response. She has diffuse colitis on CT scan. At this time, she would not be an ideal candidate for anticoagulation. However, once she is clinically stable, her candidacy for chronic anticoagulation needs to be determined. IV amiodarone continued yesterday with fair response. Dr Lopez was called overnight with elevated heart rates. Additional bolus was given drip increased to 1 mg/min and digoxin 0.5 mg IV push was given. Heart rates today have been 105 to mid 120s. She of course is going to be difficult to control while she still has a significant amount of infection as well as inflammation. Decrease amiodarone 0.5 mg/min and monitor heart rate. Blood pressure improved with IV fluids. Still not sure she would tolerate addition of the Metoprolol tartrate as she became hypotensive yesterday with 1 dose. Potassium supplemented. 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 Management by Dr. Gonzalez. (3) C. difficile colitis: Code(s): A04.72 - Enterocolitis due to Clostridium difficile, not specified as recurrent Status: Acute Assessment and Plan: Management as per primary team Additional Plan [place] [address]/01/2019 Subjective Date/time seen: 10/01/19 14:02 Interval history: Follow-up for: Atrial fibrillation with rapid ventricular response. C difficile colitis, end-stage renal disease on hemodialysis Date of service: 10/01/2019 Subjective: The only thing that is bothering her is her rectum or from the fecal containment system. Abdominal pain has improved. No chest pain or shortness of breath. Review of Systems Constitutional: Constitutional: Denies chills, Reports fatigue, Denies fever(s) and Denies headache(s) Eyes: Eyes: Denies blurry vision, Denies change in vision, Denies loss of vision and Denies eye pain ENT: Reports Normal hearing present, Denies headache(s), Denies lip swelling, Denies epistaxis and Denies sore throat Cardiovascular: Cardiovascular: Denies chest pain, Denies syncope, Reports irregular heart rhythm, Denies lightheadedness and Reports dyspnea (At baseline) Respiratory: Respiratory: Denies cough, Reports dyspnea (At baseline) and Denies wheezing Gastrointestinal: Gastrointestinal: Denies abdominal pain, Denies melena, Reports diarrhea, Denies nausea and Denies vomiting Musculoskeletal: Musculoskeletal: Denies myalgias, Denies muscle cramps and Denies muscle weakness Integumentary/Breasts: Skin/Breast: Denies pruritus and Denies rash Neurologic: Reports Normal hearing present, Denies behavioral changes, Denies syncope, Denies headache(s) and Denies loss of vision Psychiatric: Psychiatric: Denies anxiety, Denies behavioral changes and Denies depression Endocrine: Endocrine: Reports fatigue, Denies polydipsia and Denies polyuria Hematologic/Lymphatic: Hematologic/Lymphatic: Denies easy bleeding and Denies easy bruising Allergic/Immunologic: Allergic/Immunologic: Denies lip swelling and Denies wheezing Exam Const: General: cooperative and no acute distress Nutritional Appearance: obese Orientation/consciousness: patient oriented x3 HENMT: Head: normocephalic and atraumatic Ears: hearing grossly normal bilaterally and external ears normal General nose exam: Normal external nose present and no epistaxis Face and sinus: normal facial exam and no ecchymosis M
[2019-10-01 17:11] LABS: Glucose Point of Care 157 (65-105)
--- NOTE | 2019-10-01 17:28 | P.PNIM_ITS ---
Progress Note: A&P Assessment and Plan (1) C. difficile colitis: Code(s): A04.72 - Enterocolitis due to Clostridium difficile, not specified as recurrent Status: Acute Assessment and Plan: * Given recent C diff, likely this is a recurrence and there is no need to retest. * Fidaxomicin first dose 4/3 PM.(11/02) * 4/6 PM will receive dose 9 of 20 (10 days) * Plan tapering dose of vancomycin following the 10 day course of fidaxomicin (2) Atrial fibrillation with RVR: Code(s): I48.91 - Unspecified atrial fibrillation Status: Acute Assessment and Plan: * /7Continue amiodarone IV as atrial fib recurred * 09/29 Added IV metoprolol * 09/29 Added IV digoxin 250mcg x 1 * / Fluid bolus for hypotension * Echo 09/03/19 with LVEF 65-70%, severe pulmonary HTN (60mmHg) * Continue ASA (high risk for anticoagulation with acute colitis) (3) End-stage renal disease on hemodialysis: Code(s): N18.6 - End stage renal disease; Z99.2 - Dependence on renal dialysis Status: Acute Assessment and Plan: * Dr. Tang consulted for hemodialysis.M,W,F (4) Chronic anemia: Code(s): D64.9 - Anemia, unspecified Status: Acute Assessment and Plan: * Hemoglobin and hematocrit are stable on review of previous labs * Likely anemia of chronic kidney disease * Epogen per renal (5) Suspected sleep apnea: Code(s): R29.818 - Other symptoms and signs involving the nervous system Status: Acute Assessment and Plan: * Pulmonology recommends BiPAP, 14/5 with a rate of 14, to be used while sleeping. * Patient is awaiting formal outpatient polysomnogram. (6) Type 2 diabetes mellitus: Qualifiers: Diabetes mellitus complication status: with hyperglycemia Diabetes mellitus buttermaker helper insulin use: with halfway use Qualified Code(s): E11.65 - Type 2 diabetes mellitus with hyperglycemia; Z79.4 - terminal clerk (current) use of insulin Code(s): E11.9 - Type 2 diabetes mellitus without complications Status: Acute Assessment and Plan: * Well controlled with a recent hemoglobin A1c of 6.1%. * Low-dose Lantus. * Sliding scale insulin, Accu-Cheks, and hypoglycemic protocol. * 09/30 FBS 110 (7) Hypertension: Qualifiers: Hypertension type: essential hypertension Qualified Code(s): I10 - Essential (primary) hypertension Code(s): I10 - Essential (primary) hypertension Status: Acute Assessment and Plan: * Due to soft blood pressure continue to hold antihypertensives (8) Sepsis: Qualifiers: Sepsis acute organ dysfunction status: without acute organ dysfunction Sepsis type: sepsis due to unspecified organism Qualified Code(s): A41.9 - Sepsis, unspecified organism Code(s): A41.9 - Sepsis, unspecified organism Status: Acute Assessment and Plan: * Present on admission and supported by relative hypotension (responsive to IV fluids), fever, and leukocytosis in the setting of C diff colitis. * Resolved (9) Pulmonary hypertension: Code(s): I27.20 - Pulmonary hypertension, unspecified Status: Acute Assessment and Plan: per echo (10) Cirrhosis: Code(s): K74.60 - Unspecified cirrhosis of liver Status: Acute Assessment and Plan: * As documented on CT Abd/pelvis * Mild hypersplenism * Chronic with unclear etiology , probable LAWRENCE Subjective Date/time seen: 10/01/19 17:28 Interval
--- NOTE | 2019-10-01 17:28 | PM.IMPN ---
Progress Note: A&P Assessment and Plan (1) C. difficile colitis: Code(s): A04.72 - Enterocolitis due to Clostridium difficile, not specified as recurrent Status: Acute Assessment and Plan: Given recent C diff, likely this is a recurrence and there is no need to retest. Fidaxomicin first dose 4/3 PM.(11/02) 4/6 PM will receive dose 9 of 20 (10 days) Plan tapering dose of vancomycin following the 10 day course of fidaxomicin (2) Atrial fibrillation with RVR: Code(s): I48.91 - Unspecified atrial fibrillation Status: Acute Assessment and Plan: 7Continue amiodarone IV as atrial fib recurred 09/29 Added IV metoprolol 09/29 Added IV digoxin 250mcg x 1 09/29 Fluid bolus for hypotension Echo 09/03/19 with LVEF 65-70%, severe pulmonary HTN (60mmHg) Continue ASA (high risk for anticoagulation with acute colitis) (3) End-stage renal disease on hemodialysis: Code(s): N18.6 - End stage renal disease; Z99.2 - Dependence on renal dialysis Status: Acute Assessment and Plan: Dr. Tang consulted for hemodialysis.M,W,F (4) Chronic anemia: Code(s): D64.9 - Anemia, unspecified Status: Acute Assessment and Plan: Hemoglobin and hematocrit are stable on review of previous labs Likely anemia of chronic kidney disease Epogen per renal (5) Suspected sleep apnea: Code(s): R29.818 - Other symptoms and signs involving the nervous system Status: Acute Assessment and Plan: Pulmonology recommends BiPAP, 14/5 with a rate of 14, to be used while sleeping. Patient is awaiting formal outpatient polysomnogram. 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 Low-dose Lantus. Sliding scale insulin, Accu-Cheks, and hypoglycemic protocol. 09/30 FBS 110 (7) Hypertension: Qualifiers: Hypertension type: essential hypertension Qualified Code(s): I10 - Essential (primary) hypertension Code(s): I10 - Essential (primary) hypertension Status: Acute Assessment and Plan: Due to soft blood pressure continue to hold antihypertensives (8) Sepsis: Qualifiers: Sepsis acute organ dysfunction status: without acute organ dysfunction Sepsis type: sepsis due to unspecified organism Qualified Code(s): A41.9 - Sepsis, unspecified organism Code(s): A41.9 - Sepsis, unspecified organism Status: Acute Assessment and Plan: Present on admission and supported by relative hypotension (responsive to IV fluids), fever, and leukocytosis in the setting of C diff colitis. Resolved (9) Pulmonary hypertension: Code(s): I27.20 - Pulmonary hypertension, unspecified Status: Acute Assessment and Plan: per echo (10) Cirrhosis: Code(s): K74.60 - Unspecified cirrhosis of liver Status: Acute Assessment and Plan: As documented on CT Abd/pelvis Mild hypersplenism Chronic with unclear etiology , probable LAWRENCE Subjective Date/time seen: 10/01/19 17:28 Interval history: Date of visit 09/30. Follow-up for: C difficile colitis, end-stage renal disease on hemodialysis, Atrial fibrillation with rapid ventricular response. Subjective: Abdominal cramps. Diarrhea. Nausea. Anorexia. No bleeding. Slightly better but still no appetite Rectal to place last p.m. for severe diarrhea Denied chest discomfort or shortness of breath. Denied edema. Denied bleeding. Denied c/o. Generalized weakness and fatigue. Exam Narrative: Exam Narrative: Blood press
[2019-10-01] MEDS: SODIUM CHLORIDE 0.9% IV 1,000 ML 125 ML IV CONT (18:08)
[2019-10-01] MEDS: PROCHLORPERAZINE EDISYLATE 10 MG/2 ML VIAL IV PUSH (20:15)
[2019-10-01] MEDS: SIMVASTATIN 20 MG TABLET 40 MG PO (20:15)
[2019-10-01 20:28] LABS: Glucose Point of Care 183 (65-105)
[2019-10-02] VITALS (35 sets, daily range): BP systolic 75–138; BP diastolic 26–72; PULSE 62–144; RESP 16–32; TEMP 36.1–37.4; O2SAT 94–99
[2019-10-02] MEDS: ACETAMINOPHEN 325 MG TABLET 650 MG PO ×2 (00:07→06:23)
[2019-10-02] MEDS: SODIUM CHLORIDE 0.9% IV 1,000 ML 125 ML IV CONT (00:07)
[2019-10-02] MEDS: AMIODARONE 360 MG/D5W 200 ML 360 MG/200 ML BAG 33.3 MG IV CONT ×4 (02:42→20:55)
[2019-10-02 04:47] LABS: Hematocrit 30.5 % (37.0-47.0); Hemoglobin 9.1 g/dL (12.0-15.0); Mean Corpuscular HGB Conc 29.8 g/dl (32-36); Mean Corpuscular Hemoglobin 28.3 pg (26-34); Mean Corpuscular Volume 94.7 fl (80-100); Mean Platelet Volume 11.3 fl (7.4-10.4); Platelet Count Result 111 k/mm3 (150-375); Red Blood Count 3.22 M/mm3 (4.2-5.4); Red Cell Distribution Width 16.4 % (11.5-14.5); White Blood Count 12.2 K/mm3 (4.5-10.0)
[2019-10-02 05:02] LABS: Albumin Level 1.9 g/dL (3.5-5.1); Blood Urea Nitrogen 41 mg/dL (7-17); Calcium 7.4 mg/dL (8.4-10.2); Carbon Dioxide 28 mmol/L (22-30); Chloride 102 mmol/L (98-107); Estimated CRCL calculation 12 ml/min; Estimated Glomerular Filt Rate 8; Glucose 122 mg/dL (65-105); Phosphorus 2.7 mg/dL (2.5-4.5); Potassium 3.2 mmol/L (3.4-5.0); Sodium 135 mmol/L (137-145)
--- NOTE | 2019-10-02 08:00 | ECG_ITS ---
Measurements Intervals [place] Rate: 142 P: VA: 0 QRS: -34 QRSD: 103 T: 170 QT: 318 QTc: 489 Interpretive Statements ATRIAL FLUTTER/TACHYCARDIA WITH RAPID VENTRICULAR RESPONSE LEFT AXIS DEVIATION INTRAVENTRICULAR CONDUCTION DELAY POOR R WAVE PROGRESSION, ANTERIOR LEADS ST-T WAVE ABNORMALITY IN LATERAL LEADS- CONSIDER ISCHEMIA BASELINE ARTIFACT- II, III ABNORMAL ECG Electronically Signed On 10-02-2019 10:00:53 CDT by Jered Vee D.O.
[2019-10-02] MEDS: FAMOTIDINE 20 MG TABLET PO ×2 (08:32→20:55)
[2019-10-02] MEDS: SACCHAROMYCES BOULARDII 250 MG CAPSULE PO (08:33)
[2019-10-02] MEDS: ASPIRIN 81 MG ENTERIC TABLET PO (08:33)
[2019-10-02] MEDS: FIDAXOMICIN 200 MG TABLET PO ×2 (08:33→20:55)
[2019-10-02] MEDS: TOLNAFTATE 1% POWDER 45 GM BTL 1 APPLIC TOPICAL ×2 (08:33→20:55)
--- NOTE | 2019-10-02 08:55 | PM.PNNEP ---
Progress Note: A&P Assessment and Plan (1) End-stage renal disease on hemodialysis: Code(s): N18.6 - End stage renal disease; Z99.2 - Dependence on renal dialysis Status: Acute Assessment and Plan: Aurelia has end-stage renal disease. She is due for dialysis today. Because of her isolation issue she will get done later this afternoon. Her blood pressure seems better lately. She is not eating very much. Continue the IV fluids. (2) C. difficile colitis: Code(s): A04.72 - Enterocolitis due to Clostridium difficile, not specified as recurrent Status: Acute Assessment and Plan: The patient has copious amounts of diarrhea. Belly pain is better. on dificid (3) Anemia: Qualifiers: Anemia type: iron deficiency Iron deficiency anemia type: unspecified iron deficiency Qualified Code(s): D50.9 - Iron deficiency anemia, unspecified Code(s): D64.9 - Anemia, unspecified Status: Chronic Assessment and Plan: Hemoglobin is 9.1. She is getting Epogen per dialysis. (4) Suspected sleep apnea: Code(s): R29.818 - Other symptoms and signs involving the nervous system Status: Acute Assessment and Plan: This is going to be evaluated as an outpatient (5) Type 2 diabetes mellitus: Qualifiers: Diabetes mellitus complication status: with hyperglycemia Diabetes mellitus senior care insulin use: with local company intermodal truck driver use Qualified Code(s): E11.65 - Type 2 diabetes mellitus with hyperglycemia; Z79.4 - exterminator termite (current) use of insulin Code(s): E11.9 - Type 2 diabetes mellitus without complications Status: Acute Assessment and Plan: Patient is on Accu-Cheks and sliding-scale insulin (6) Sepsis: Qualifiers: Sepsis acute organ dysfunction status: without acute organ dysfunction Sepsis type: sepsis due to unspecified organism Qualified Code(s): A41.9 - Sepsis, unspecified organism Code(s): A41.9 - Sepsis, unspecified organism Status: Acute Assessment and Plan: White count is better. Blood pressure seems better as well. She is getting antibiotics and supportive care. Continue current IV fluids. (7) Hypertension: Qualifiers: Hypertension type: essential hypertension Qualified Code(s): I10 - Essential (primary) hypertension Code(s): I10 - Essential (primary) hypertension Status: Acute Assessment and Plan: Blood pressure is normal now. She is off her blood pressure meds. We can full these back in once her blood pressure starts to rise again. Subjective Date/time seen: 10/02/19 08:55 Interval history: Patient is still having diarrhea. She has a FEES in still. Every time she coughs she has discomfort in her anus and rectum because of the FEES. Her belly pain is better again today.. Review of Systems Cardiovascular: Cardiovascular: Reports no additional cardiovascular complaints Respiratory: Respiratory: Reports no additional respiratory complaints Gastrointestinal: Gastrointestinal: Reports no additional gastrointestinal complaints Genitourinary: Genitourinary: Reports no additional female genitourinary complaints Exam Narrative: Exam Narrative: Well developed well-nourished in no acute distress Lungs clear to auscultation Heart regular without rub Abdomen bowel sounds positive soft less tender. Extremities no edema or cyanosis Skin no rash or subcu nodules Objective Data Vital Signs Vital Signs: Vital Signs - 24 hr 10/01/19 09:11 10/01/19 10:00 10/01/19 12:00 Temperature 36.3 C L Pulse Rate 118 H 81 Respiratory Rate 28 H Blood Pressure 120/59 L Pulse Oximetry 93 97 10/01/19 14:00 10/01/19 16:00 10/01/19 18:00 Temperature 36.1 C L Pulse Rate 124 H 85 121 H Respiratory Rate 22 H Blood Pressure 103/39 L Pulse Oximetry 98 10/01/19 19:46 10/01/19 20:00 10/01/19 22:00 Temperature 37.0 C Pul
--- NOTE | 2019-10-02 10:10 | PM.PNCARD ---
Progress Note: A&P Assessment and Plan (1) Atrial fibrillation with RVR: Code(s): I48.91 - Unspecified atrial fibrillation Status: Acute Assessment and Plan: Developed atrial fibrillation with RVR, was initiated on IV amiodarone, converted to sinus rhythm and overnight on 09/29/2019 went back into atrial fibrillation with rapid ventricular response. She has diffuse colitis on CT scan. At this time, she would not be an ideal candidate for anticoagulation. However, once she is clinically stable, her candidacy for chronic anticoagulation needs to be determined. IV amiodarone continued yesterday with fair response. In and out of atrial fibrillation /flutter. Continue amiodarone. Will give a dose of IV metoprolol 5 mg x 1. Replace potassium with 40 mEq p.o. x1. 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 Management by Dr. Gonzalez. (3) C. difficile colitis: Code(s): A04.72 - Enterocolitis due to Clostridium difficile, not specified as recurrent Status: Acute Assessment and Plan: Management as per primary team Subjective Date/time seen: 10/02/19 10:10 Interval history: Follow-up for: Atrial fibrillation with rapid ventricular response. C difficile colitis, end-stage renal disease on hemodialysis Date of service: 10/02/2019 Subjective: still with diarrhea. No chest pain or shortness of breath. Review of Systems Constitutional: Constitutional: Denies chills, Reports fatigue, Denies fever(s) and Denies headache(s) Eyes: Eyes: Denies blurry vision, Denies change in vision, Denies loss of vision and Denies eye pain ENT: Reports Normal hearing present, Denies headache(s), Denies lip swelling, Denies epistaxis and Denies sore throat Cardiovascular: Cardiovascular: Denies chest pain, Denies syncope, Reports irregular heart rhythm, Denies lightheadedness and Reports dyspnea (At baseline) Respiratory: Respiratory: Denies cough, Reports dyspnea (At baseline) and Denies wheezing Gastrointestinal: Gastrointestinal: Denies abdominal pain, Denies melena, Reports diarrhea, Denies nausea and Denies vomiting Genitourinary: Genitourinary: Reports as per HPI Musculoskeletal: Musculoskeletal: Denies myalgias, Denies muscle cramps and Denies muscle weakness Integumentary/Breasts: Skin/Breast: Denies pruritus and Denies rash Neurologic: Reports Normal hearing present, Denies behavioral changes, Denies syncope, Denies headache(s) and Denies loss of vision Psychiatric: Psychiatric: Denies anxiety, Denies behavioral changes and Denies depression Endocrine: Endocrine: Reports fatigue, Denies polydipsia and Denies polyuria Hematologic/Lymphatic: Hematologic/Lymphatic: Denies easy bleeding and Denies easy bruising Allergic/Immunologic: Allergic/Immunologic: Denies lip swelling and Denies wheezing Exam Const: General: cooperative and no acute distress Nutritional Appearance: obese Orientation/consciousness: patient oriented x3 HENMT: Head: normocephalic and atraumatic Ears: hearing grossly normal bilaterally and external ears normal General nose exam: Normal external nose present and no epistaxis Face and sinus: normal facial exam and no ecchymosis Mouth: Yes Normal oral and palatal mucosa present Teeth and gingiva: dentition normal Eyes: Conjunctivae: conjunctivae normal Sclera: sclerae normal Pupils: Equal, round and reactive pupils present EOM: EOMs intact bilaterally Neck: Neck: normal visual inspection and supple Thyroid: thyroid normal Carotids: normal carotid upstroke Resp: Effort & Inspection: normal respiratory effort and able to speak in complete sentences Auscultation: diminished lung sounds (Also limited assessment due to isolation stethoscope.)
[2019-10-02] MEDS: SODIUM CHLORIDE 0.9% IV 1,000 ML 120 ML IV CONT (10:22)
[2019-10-02] MEDS: METOPROLOL TARTRATE INJ 5 MG/5 ML VIAL IV PUSH (10:23)
[2019-10-02] MEDS: POTASSIUM CHLORIDE 20 MEQ TABLET 40 MEQ PO (10:25)
[2019-10-02 11:51] LABS: Glucose Point of Care 102 (65-105)
--- NOTE | 2019-10-02 12:18 | WPDINFPN2 ---
Progress Note: A&P Assessment and Plan (1) C. difficile colitis: Code(s): A04.72 - Enterocolitis due to Clostridium difficile, not specified as recurrent Status: Acute Assessment and Plan: 1. Relapsed C diff infection, still with high WBC though stable. 2. Cirrhosis 3. CRF on HD 4. Dyspnea, possibly related to her chronic renal failure. Doubt HCAP REC Fidaxomicin # 6 / 10 days, followed by vancomycin orally slow taper over 6 weeks. Nutritional support underway. HD later today. Subjective Date/time seen: 10/02/19 12:18 Interval history: mild dyspnea. intermittent abd pain, flexiseal in place brown liquid Exam Narrative: Exam Narrative: afebrile Const: General: no acute distress Eyes: General: appearance normal, both eyes and all related structures Resp: Effort & Inspection: normal respiratory effort Auscultation: clear to auscultation bilaterally Cardio: Rate: regular rate Rhythm: regular rhythm Heart sounds: no gallops and no murmurs GI: Inspection: non-distended GI Palp: Yes Soft to palpation and No Tenderness to palpation present (GI) Skin: General skin exam: normal color and no rashes or lesions noted Objective Data Vital Signs Vital Signs: Vital Signs - 24 hr 10/01/19 14:00 10/01/19 16:00 10/01/19 18:00 Temperature 36.1 C L Pulse Rate 124 H 85 121 H Respiratory Rate 22 H Blood Pressure 103/39 L Pulse Oximetry 98 10/01/19 19:46 10/01/19 20:00 10/01/19 22:00 Temperature 37.0 C Pulse Rate 66 65 105 H Respiratory Rate 18 Blood Pressure 104/38 L Pulse Oximetry 96 10/02/19 00:00 10/02/19 00:30 10/02/19 02:00 Temperature 36.3 C L Pulse Rate 113 H 111 H 66 Respiratory Rate 18 24 H Blood Pressure 110/72 Pulse Oximetry 96 95 10/02/19 04:00 10/02/19 06:00 10/02/19 06:25 Temperature 36.1 C L Pulse Rate 76 108 H 109 H Respiratory Rate 18 21 H Blood Pressure 123/61 Pulse Oximetry 99 95 10/02/19 08:32 10/02/19 10:23 Temperature Pulse Rate 140 H Respiratory Rate Blood Pressure Pulse Oximetry 95 Intake/Output Intake/Output: Intake & Output 09/29/19 09/30/19 10/01/19 10/02/19 23:59 23:59 23:59 23:59 Intake Total 1890 1745 4000 2400 Output Total 289 1000 500 Balance 1890 1456 3000 1900 Meds/Results Medications: Active Medications Generic Name Dose Route Start Last Admin Trade Name Freq PRN Reason Stop Dose Admin Acetaminophen 650 mg 09/30/19 01:35 10/02/19 06:23 Tylenol Tablet PO 650 mg Q4H PRN Administration Mild Pain (1-3) or Fever Alprazolam 0.5 mg 09/27/19 21:21 09/29/19 21:07 Xanax PO 0.5 mg TID PRN Administration Anxiety Aspirin 81 mg 09/28/19 09:00 10/02/19 08:33 Aspirin Ec PO 81 mg DAILY DEJON Administration Cholestyramine Resin 4 gm 09/30/19 21:00 10/01/19 18:08 Questran Light Packet PO 4 gm BID@1000,1800 DEJON Administration Dextrose 12.5 gm 09/27/19 21:09 Dextrose 50% Syringe IV PUSH PRN PRN Hypoglycemia Protocol Epoetin Cameron 10,000 units 09/30/19 11:00 09/30/19 21:14 Epogen IV PUSH Not Given MOWEFR DEJON Famotidine 20 mg 09/28/19 09:00 10/02/19 08:32 Pepcid PO 20 mg Q12HR DEJON Administration Fidaxomicin 200 mg 09/27/19 21:00 10/02/19 08:33 Dificid PO 10/07/19 21:01 200 mg Q12HR DEJON Administration Glucagon 1 mg 09/27/19 21:09 Glucagon For Inj IM PRN PRN Hypoglycemia Protocol Glucose 15 gm 09/27/19 21:09 Glutose 15 PO PRN PRN Hypoglycemia Protocol Dextrose 1,000 mls @ 100 mls/hr 09/27/19 21:09 Dextrose 5% 1,000 Ml IVPB PRN PRN Hypoglycemia Protocol Amiodarone HCl/Dextrose 360 mg in 200 mls @ 16.667 mls/hr 09/29/19 04:00 10/02/19 08:25 Nexterone 360 Mg/D5w 200 Ml IV CONT 1 mg/min .Q12H DEJON 33.3 mls/hr Administration 0.5 MG/MIN Sodium Chloride 1,000 mls @ 125 mls/hr 09/30/19 07:45 10/02/19 10:22 Nor
[2019-10-02] MEDS: CHOLESTYRAMINE LIGHT 4 GM POWD.PACK PO (14:41)
[2019-10-02] MEDS: HEPARIN SODIUM 1,000 UNITS/ML VIAL 1000 UNITS IV PUSH (15:37)
[2019-10-02] MEDS: HEPARIN SODIUM 1,000 UNITS/ML VIAL 500 UNITS IV PUSH ×2 (15:38→17:27)
[2019-10-02] MEDS: ALBUMIN HUMAN 25% 12.5 GM/50ML 50 ML 100 GM (16:35)
--- NOTE | 2019-10-02 17:19 | P.PNIM_ITS ---
Progress Note: A&P Assessment and Plan (1) C. difficile colitis: Code(s): A04.72 - Enterocolitis due to Clostridium difficile, not specified as recurrent Status: Acute Assessment and Plan: * Given recent C diff, likely this is a recurrence and there is no need to retest. * Fidaxomicin first dose 4/3 PM.(12/03) * 4/8 PM will receive dose 11of 20 (10 days) * Plan tapering dose of vancomycin following the 10 day course of fidaxomicin (2) Atrial fibrillation with RVR: Code(s): I48.91 - Unspecified atrial fibrillation Status: Acute Assessment and Plan: * 7Continue amiodarone IV as atrial fib recurred * 09/29 Added IV metoprolol * 09/29 Added IV digoxin 250mcg x 1 * 09/29 Fluid bolus for hypotension * Echo 09/03/19 with LVEF 65-70%, severe pulmonary HTN (60mmHg) * continue ASA with high risk bleed with full anticoagulation with colitis (3) End-stage renal disease on hemodialysis: Code(s): N18.6 - End stage renal disease; Z99.2 - Dependence on renal dialysis Status: Acute Assessment and Plan: * Dr. Tang consulted for hemodialysis.M,W,F * Mild fluid overloaded today as evidence by physical exam and chest x-ray. * Dialysis attempting to remove 3 L fluid (4) Chronic anemia: Code(s): D64.9 - Anemia, unspecified Status: Acute Assessment and Plan: * Hemoglobin and hematocrit are stable on review of previous labs * Likely anemia of chronic kidney disease * Epogen per renal (5) Suspected sleep apnea: Code(s): R29.818 - Other symptoms and signs involving the nervous system Status: Acute Assessment and Plan: * Pulmonology recommends BiPAP, 14/5 with a rate of 14, to be used while sleeping. * Patient is awaiting formal outpatient polysomnogram. (6) Type 2 diabetes mellitus: Qualifiers: Diabetes mellitus mcfp insulin use: with terminologist use Diabetes mellitus complication status: with hyperglycemia Qualified Code(s): E11.65 - Type 2 diabetes mellitus with hyperglycemia; Z79.4 - terminal operations manager (current) use of insulin Code(s): E11.9 - Type 2 diabetes mellitus without complications Status: Acute Assessment and Plan: * Well controlled with a recent hemoglobin A1c of 6.1%. * Low-dose Lantus. * Sliding scale insulin, Accu-Cheks, and hypoglycemic protocol. * 10/01 FBS 122 (7) Hypertension: Qualifiers: Hypertension type: essential hypertension Qualified Code(s): I10 - Essential (primary) hypertension Code(s): I10 - Essential (primary) hypertension Status: Acute Assessment and Plan: * Due to soft blood pressure continue to hold antihypertensives metoprolol, hydralazine, and lisinopril (8) Sepsis: Qualifiers: Sepsis type: sepsis due to unspecified organism Sepsis acute organ dysfunction status: without acute organ dysfunction Qualified Code(s): A41.9 - Sepsis, unspecified organism Code(s): A41.9 - Sepsis, unspecified organism Status: Acute Assessment and Plan: * Present on admission and supported by relative hypotension (responsive to IV fluids), fever, and leukocytosis in the setting of C diff colitis. * Resolved (9) Pulmonary hypertension: Code(s): I27.20 - Pulmonary hypertension, unspecified Status: Acute Assessment and Plan: per echo (10) Cirrhosis: Code(s): K74.60 - Unspecified cirrhosis of liver Status: Acute Assessment and Plan: * As doc
--- NOTE | 2019-10-02 17:19 | PM.IMPN ---
Progress Note: A&P Assessment and Plan (1) C. difficile colitis: Code(s): A04.72 - Enterocolitis due to Clostridium difficile, not specified as recurrent Status: Acute Assessment and Plan: Given recent C diff, likely this is a recurrence and there is no need to retest. Fidaxomicin first dose 4/3 PM.(12/03) 4/8 PM will receive dose 11of 20 (10 days) Plan tapering dose of vancomycin following the 10 day course of fidaxomicin (2) Atrial fibrillation with RVR: Code(s): I48.91 - Unspecified atrial fibrillation Status: Acute Assessment and Plan: 7Continue amiodarone IV as atrial fib recurred 09/29 Added IV metoprolol 09/29 Added IV digoxin 250mcg x 1 09/29 Fluid bolus for hypotension Echo 09/03/19 with LVEF 65-70%, severe pulmonary HTN (60mmHg) continue ASA with high risk bleed with full anticoagulation with colitis (3) End-stage renal disease on hemodialysis: Code(s): N18.6 - End stage renal disease; Z99.2 - Dependence on renal dialysis Status: Acute Assessment and Plan: Dr. Tang consulted for hemodialysis.M,W,F Mild fluid overloaded today as evidence by physical exam and chest x-ray. Dialysis attempting to remove 3 L fluid (4) Chronic anemia: Code(s): D64.9 - Anemia, unspecified Status: Acute Assessment and Plan: Hemoglobin and hematocrit are stable on review of previous labs Likely anemia of chronic kidney disease Epogen per renal (5) Suspected sleep apnea: Code(s): R29.818 - Other symptoms and signs involving the nervous system Status: Acute Assessment and Plan: Pulmonology recommends BiPAP, 14/5 with a rate of 14, to be used while sleeping. Patient is awaiting formal outpatient polysomnogram. (6) Type 2 diabetes mellitus: Qualifiers: Diabetes mellitus rodent exterminator insulin use: with rodent exterminator use Diabetes mellitus complication status: with hyperglycemia Qualified Code(s): E11.65 - Type 2 diabetes mellitus with hyperglycemia; Z79.4 - snf (current) use of insulin Code(s): E11.9 - Type 2 diabetes mellitus without complications Status: Acute Assessment and Plan: Well controlled with a recent hemoglobin A1c of 6.1%. Low-dose Lantus. Sliding scale insulin, Accu-Cheks, and hypoglycemic protocol. 10/01 FBS 122 (7) Hypertension: Qualifiers: Hypertension type: essential hypertension Qualified Code(s): I10 - Essential (primary) hypertension Code(s): I10 - Essential (primary) hypertension Status: Acute Assessment and Plan: Due to soft blood pressure continue to hold antihypertensives metoprolol, hydralazine, and lisinopril (8) Sepsis: Qualifiers: Sepsis type: sepsis due to unspecified organism Sepsis acute organ dysfunction status: without acute organ dysfunction Qualified Code(s): A41.9 - Sepsis, unspecified organism Code(s): A41.9 - Sepsis, unspecified organism Status: Acute Assessment and Plan: Present on admission and supported by relative hypotension (responsive to IV fluids), fever, and leukocytosis in the setting of C diff colitis. Resolved (9) Pulmonary hypertension: Code(s): I27.20 - Pulmonary hypertension, unspecified Status: Acute Assessment and Plan: per echo (10) Cirrhosis: Code(s): K74.60 - Unspecified cirrhosis of liver Status: Acute Assessment and Plan: As documented on CT Abd/pelvis Mild hypersplenism Chronic with unclear etiology , probable [place] Subjective Date/time seen: 10/02/19 17:19 Interval history: Date of visit 10/01. Follow-up for: C difficile colitis, end-stage renal disease on hemodialysis, Atrial fibrillation with rapid ventricular response. Subjective: Abdominal cramps. Diarrhea. Nausea. Anorexia. No bleeding. Slightly better each day but still no appetite Rectal tube placed last 4/6 p.m. for severe rashid
[2019-10-02 17:42] LABS: Glucose Point of Care 109 (65-105)
[2019-10-02] MEDS: EPOETIN ALFA 10,000 UNITS/ML VIAL 10000 UNITS IV PUSH (18:31)
[2019-10-02] MEDS: HEPARIN SODIUM 1,000 UNITS/ML VIAL 6000 UNITS (19:11)
--- NOTE | 2019-10-02 19:26 | PC.NURSE ---
1440- To dialysis for treatment- via bed accompanied by staff-
--- NOTE | 2019-10-02 19:58 | PC.NURSE ---
pt returned from dialysis at approx. 10/01
[2019-10-02 20:03] LABS: Glucose Point of Care 94 (65-105)
[2019-10-02] MEDS: SIMVASTATIN 20 MG TABLET 40 MG PO (20:56)
[2019-10-03] VITALS (22 sets, daily range): BP systolic 113–134; BP diastolic 37–56; PULSE 66–127; RESP 18–32; TEMP 36.6–36.8; O2SAT 93–100
--- NOTE | 2019-10-03 02:41 | PC.NURSE ---
Patient c/o feeling of having to void. Patient unable to void on bedpan several times. Bladder scanned patient with result of 123mls.
[2019-10-03] MEDS: AMIODARONE 360 MG/D5W 200 ML 360 MG/200 ML BAG 33.3 MG IV CONT ×2 (02:54→08:33)
[2019-10-03] MEDS: PROCHLORPERAZINE EDISYLATE 10 MG/2 ML VIAL IV PUSH (03:18)
[2019-10-03 05:01] LABS: Basophils Absolute Auto 0.1 K/mm3 (0.0-0.1); Basophils Percent Auto 0.5 % (0.2-1.2); Eosinophils Absolute Auto 0.2 K/mm3 (0-0.3); Eosinophils Percent Auto 1.8 % (0-4.4); Hematocrit 29.2 % (37.0-47.0); Hemoglobin 8.7 g/dL (12.0-15.0); Immature Granulocyte Absolute 0.65 K/mm3 (0.00-0.031); Immature Granulocyte Percent A 4.9 % (0-0.5); Lymphocytes Absolute Auto 1.47 K/mm3 (0.9-3.2); Lymphocytes Percent Auto 11.2 % (18.3-44.2); Mean Corpuscular HGB Conc 29.8 g/dl (32-36); Mean Corpuscular Hemoglobin 28.2 pg (26-34); Mean Corpuscular Volume 94.5 fl (80-100); Mean Platelet Volume 11.8 fl (7.4-10.4); Monocytes Absolute Auto 0.7 K/mm3 (0.1-0.6); Monocytes Percent Auto 5.6 % (2.6-8.5); Nucleated Red Blood Cells Perc 0.2 % (0.0-0.2); Platelet Count Result 92 k/mm3 (150-375); Red Blood Count 3.09 M/mm3 (4.2-5.4); Red Cell Distribution Width 17.2 % (11.5-14.5); White Blood Count 13.2 K/mm3 (4.5-10.0)
[2019-10-03 05:22] LABS: Albumin Level 2.1 g/dL (3.5-5.1); Blood Urea Nitrogen 24 mg/dL (7-17); Calcium 7.4 mg/dL (8.4-10.2); Carbon Dioxide 28 mmol/L (22-30); Chloride 100 mmol/L (98-107); Estimated CRCL calculation 18 ml/min; Estimated Glomerular Filt Rate 13; Glucose 150 mg/dL (65-105); Phosphorus 1.8 mg/dL (2.5-4.5); Potassium 3.2 mmol/L (3.4-5.0); Sodium 134 mmol/L (137-145)
[2019-10-03 06:23] LABS: Anisocytosis 1+ (NORMAL); Hypochromasia 1+ (NORMAL); Platelet Estimate Decreased (Adequate)
[2019-10-03 08:26] LABS: Glucose Point of Care 162 (65-105)
[2019-10-03] MEDS: FIDAXOMICIN 200 MG TABLET PO ×2 (08:31→20:53)
[2019-10-03] MEDS: SACCHAROMYCES BOULARDII 250 MG CAPSULE PO ×2 (08:31→17:46)
[2019-10-03] MEDS: TOLNAFTATE 1% POWDER 45 GM BTL 1 APPLIC TOPICAL ×2 (08:32→20:57)
[2019-10-03] MEDS: FAMOTIDINE 20 MG TABLET PO ×2 (08:32→20:53)
[2019-10-03] MEDS: ASPIRIN 81 MG ENTERIC TABLET PO (08:32)
--- NOTE | 2019-10-03 09:32 | PM.PNCARD ---
Progress Note: A&P Assessment and Plan (1) Atrial fibrillation with RVR: Code(s): I48.91 - Unspecified atrial fibrillation Status: Acute Assessment and Plan: Developed atrial fibrillation with RVR, was initiated on IV amiodarone, converted to sinus rhythm and overnight on 09/29/2019 went back into atrial fibrillation with rapid ventricular response. She has diffuse colitis on CT scan. At this time, she would not be an ideal candidate for anticoagulation. However, once she is clinically stable, her candidacy for chronic anticoagulation needs to be determined. reduce amiodarone to 0.5 mg In and out of atrial fibrillation /flutter. Continue amiodarone. Replace potassium with 40 mEq p.o. x1. 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 Management by Dr. Gonzalez. (3) C. difficile colitis: Code(s): A04.72 - Enterocolitis due to Clostridium difficile, not specified as recurrent Status: Acute Assessment and Plan: Management as per primary team Subjective Date/time seen: 10/03/19 09:32 Interval history: Follow-up for: Atrial fibrillation with rapid ventricular response. C difficile colitis, end-stage renal disease on hemodialysis Date of service: 10/02/2019 Subjective: still with diarrhea. No chest pain or shortness of breath. Review of Systems Constitutional: Constitutional: Denies chills, Reports fatigue, Denies fever(s) and Denies headache(s) Eyes: Eyes: Denies blurry vision, Denies change in vision, Denies loss of vision and Denies eye pain ENT: Reports Normal hearing present, Denies headache(s), Denies lip swelling, Denies epistaxis and Denies sore throat Cardiovascular: Cardiovascular: Denies chest pain, Denies syncope, Reports irregular heart rhythm, Denies lightheadedness and Reports dyspnea (At baseline) Respiratory: Respiratory: Denies cough, Reports dyspnea (At baseline) and Denies wheezing Gastrointestinal: Gastrointestinal: Denies abdominal pain, Denies melena, Reports diarrhea, Denies nausea and Denies vomiting Genitourinary: Genitourinary: Reports as per HPI Musculoskeletal: Musculoskeletal: Denies myalgias, Denies muscle cramps and Denies muscle weakness Integumentary/Breasts: Skin/Breast: Denies pruritus and Denies rash Neurologic: Reports Normal hearing present, Denies behavioral changes, Denies syncope, Denies headache(s) and Denies loss of vision Psychiatric: Psychiatric: Denies anxiety, Denies behavioral changes and Denies depression Endocrine: Endocrine: Reports fatigue, Denies polydipsia and Denies polyuria Hematologic/Lymphatic: Hematologic/Lymphatic: Denies easy bleeding and Denies easy bruising Allergic/Immunologic: Allergic/Immunologic: Denies lip swelling and Denies wheezing Exam Const: General: cooperative and no acute distress Nutritional Appearance: obese Orientation/consciousness: patient oriented x3 HENMT: Head: normocephalic and atraumatic Ears: hearing grossly normal bilaterally and external ears normal General nose exam: Normal external nose present and no epistaxis Face and sinus: normal facial exam and no ecchymosis Mouth: Yes Normal oral and palatal mucosa present Teeth and gingiva: dentition normal Eyes: Conjunctivae: conjunctivae normal Sclera: sclerae normal Pupils: Equal, round and reactive pupils present EOM: EOMs intact bilaterally Neck: Neck: normal visual inspection and supple Thyroid: thyroid normal Carotids: normal carotid upstroke Resp: Effort & Inspection: normal respiratory effort and able to speak in complete sentences Auscultation: diminished lung sounds (Also limited assessment due to isolation stethoscope.) diffuse Cardio: Jugular venous distension: no JVD Rate: tachycardic
[2019-10-03] MEDS: ALBUTEROL SULFATE NEB 2.5 MG/0.5 ML INH INHALATION (09:33)
[2019-10-03] MEDS: POTASSIUM CHLORIDE 20 MEQ TABLET 40 MEQ PO (10:14)
[2019-10-03] MEDS: CHOLESTYRAMINE LIGHT 4 GM POWD.PACK PO ×2 (11:48→18:54)
--- NOTE | 2019-10-03 12:54 | PM.PNNEP ---
Progress Note: A&P Assessment and Plan (1) End-stage renal disease on hemodialysis: Code(s): N18.6 - End stage renal disease; Z99.2 - Dependence on renal dialysis Status: Acute Assessment and Plan: Aurelia has end-stage renal disease. She is due for dialysis tomorrow. She does have some shortness of breath. I think this is more related to her atrial flutter then do volume overload. She does not have all that much edema and she feels much less short of breath than she did before she started treatment before. Her blood pressure is better so we will stop her IV fluids. Use of present on the MA R but not on the order list. I will make sure she is off the fluids. If she gets more short of breath later today we can dialyze her on an emergency basis. (2) C. difficile colitis: Code(s): A04.72 - Enterocolitis due to Clostridium difficile, not specified as recurrent Status: Acute Assessment and Plan: The patient has copious amounts of diarrhea. Belly pain is better. Overall the seems improved. on dificid (3) Anemia: Qualifiers: Anemia type: iron deficiency Iron deficiency anemia type: unspecified iron deficiency Qualified Code(s): D50.9 - Iron deficiency anemia, unspecified Code(s): D64.9 - Anemia, unspecified Status: Chronic Assessment and Plan: Hemoglobin is 8.7. She is getting Epogen per dialysis. (4) Suspected sleep apnea: Code(s): R29.818 - Other symptoms and signs involving the nervous system Status: Acute Assessment and Plan: This is going to be evaluated as an outpatient (5) Type 2 diabetes mellitus: Qualifiers: Diabetes mellitus usp insulin use: with tank terminal gauger use Diabetes mellitus complication status: with hyperglycemia Qualified Code(s): E11.65 - Type 2 diabetes mellitus with hyperglycemia; Z79.4 - retirement (current) use of insulin Code(s): E11.9 - Type 2 diabetes mellitus without complications Status: Acute Assessment and Plan: Patient is on Accu-Cheks and sliding-scale insulin (6) Sepsis: Qualifiers: Sepsis type: sepsis due to unspecified organism Sepsis acute organ dysfunction status: without acute organ dysfunction Qualified Code(s): A41.9 - Sepsis, unspecified organism Code(s): A41.9 - Sepsis, unspecified organism Status: Acute Assessment and Plan: White count is better. Blood pressure seems better as well. (7) Hypertension: Qualifiers: Hypertension type: essential hypertension Qualified Code(s): I10 - Essential (primary) hypertension Code(s): I10 - Essential (primary) hypertension Status: Acute Assessment and Plan: Blood pressure is normal now. She is off her blood pressure meds. We can full these back in once her blood pressure starts to rise again. Subjective Date/time seen: 10/03/19 12:54 Interval history: Patient is still having diarrhea. Belly pain is better. In and out of atrial flutter. She has some shortness of breath Review of Systems Cardiovascular: Cardiovascular: Reports no additional cardiovascular complaints Respiratory: Respiratory: Reports no additional respiratory complaints Gastrointestinal: Gastrointestinal: Reports no additional gastrointestinal complaints Genitourinary: Genitourinary: Reports no additional female genitourinary complaints Exam Narrative: Exam Narrative: Well developed well-nourished in no acute distress Lungs clear to auscultation Heart irregular without rub Abdomen bowel sounds positive soft less tender. Extremities no edema Skin no rash Objective Data Vital Signs Vital Signs: Vital Signs - 24 hr 10/02/19 14:00 10/02/19 15:10 10/02/19 15:14 Temperature 36.9 C Pulse Rate 71 69 69 Respiratory Rate 18 Blood Pressure 113/57 L 121/57 L Pulse Oximetry 10/02/19 15:30 10/02/19 15:45 10/02/19 16:00 Temperature
[2019-10-03] MEDS: ALBUTEROL SULFATE NEB 2.5 MG/0.5 ML INH 5 MG INHALATION ×2 (14:00→21:39)
[2019-10-03] MEDS: IPRATROPIUM BR 0.02% INH SOLN 0.5 MG/2.5 ML VIAL INHALATION ×2 (14:00→21:39)
--- NOTE | 2019-10-03 14:11 | WPDINFPN2 ---
Progress Note: A&P Assessment and Plan (1) C. difficile colitis: Code(s): A04.72 - Enterocolitis due to Clostridium difficile, not specified as recurrent Status: Acute Assessment and Plan: 1. Relapsed C diff infection, still with high WBC though stable. Stool volume better, current in bag: brown and no form 2. Cirrhosis 3. CRF on HD 4. Dyspnea, possibly related to her chronic renal failure. Doubt HCAP REC Fidaxomicin # 7 / 10 days, followed by vancomycin orally slow taper over 6 weeks. Nutritional support underway. Possible repeat HD later today. Subjective Date/time seen: 10/03/19 14:11 Interval history: still short of breath. no abd pain Exam Narrative: Exam Narrative: afebrile Const: General: in distress Other: mild respiratory Eyes: General: appearance normal, both eyes and all related structures Resp: Effort & Inspection: abnormal respiratory effort Auscultation: clear to auscultation bilaterally Cardio: Rate: regular rate Rhythm: regular rhythm Heart sounds: no gallops and no murmurs GI: Inspection: non-distended GI Palp: Yes Soft to palpation, No Tenderness to palpation present (GI) and No Guarding due to palpation present (GI) Objective Data Vital Signs Vital Signs: Vital Signs - 24 hr 10/02/19 15:10 10/02/19 15:14 10/02/19 15:30 Temperature 36.9 C Pulse Rate 69 69 74 Respiratory Rate 18 Blood Pressure 113/57 L 121/57 L 85/33 L Pulse Oximetry 10/02/19 15:45 10/02/19 16:00 10/02/19 16:15 Temperature Pulse Rate 76 74 76 Respiratory Rate Blood Pressure 130/50 L 138/51 L 95/26 L Pulse Oximetry 10/02/19 16:30 10/02/19 16:45 10/02/19 17:00 Temperature Pulse Rate 75 71 69 Respiratory Rate Blood Pressure 75/32 L 107/41 L 101/55 L Pulse Oximetry 10/02/19 17:15 10/02/19 17:30 10/02/19 17:45 Temperature Pulse Rate 70 71 71 Respiratory Rate Blood Pressure 107/40 L 104/32 L 110/51 L Pulse Oximetry 10/02/19 18:00 10/02/19 18:15 10/02/19 18:30 Temperature Pulse Rate 69 71 68 Respiratory Rate Blood Pressure 128/46 L 120/43 L 121/52 L Pulse Oximetry 10/02/19 18:45 10/02/19 18:51 10/02/19 19:00 Temperature 36.4 C Pulse Rate 68 72 98 Respiratory Rate 18 Blood Pressure 121/52 L 117/52 L 129/56 L Pulse Oximetry 10/02/19 20:00 10/02/19 22:00 10/02/19 22:30 Temperature 37.4 C Pulse Rate 128 H 76 79 Respiratory Rate 16 26 H Blood Pressure 104/50 L Pulse Oximetry 98 94 10/02/19 23:40 10/03/19 00:00 10/03/19 02:00 Temperature 36.4 C Pulse Rate 78 93 75 Respiratory Rate 20 Blood Pressure 137/39 L Pulse Oximetry 98 10/03/19 02:21 10/03/19 03:21 10/03/19 04:00 Temperature 36.7 C Pulse Rate 77 66 122 H Respiratory Rate 27 H 22 H Blood Pressure 116/37 L Pulse Oximetry 96 94 10/03/19 05:51 10/03/19 08:00 10/03/19 09:37 Temperature Pulse Rate 109 H 120 H 73 Respiratory Rate 22 H 18 Blood Pressure Pulse Oximetry 94 99 10/03/19 09:41 10/03/19 10:00 10/03/19 12:00 Temperature 36.8 C Pulse Rate 73 73 76 Respiratory Rate 32 H 28 H Blood Pressure 134/47 L Pulse Oximetry 100 97 10/03/19 14:02 Temperature Pulse Rate 73 Respiratory Rate 18 Blood Pressure Pulse Oximetry Intake/Output Intake/Output: Intake & Output 09/30/19 10/01/19 10/02/19 10/03/19 23:59 23:59 23:59 23:59 Intake Total 1745 4000 3037 750 Output Total 289 1000 2500 500 Balance 1456 3000 537 250 Meds/Results Medications: Active Medications Generic Name Dose Route Start Last Admin Trade Name Freq PRN Reason Stop Dose Admin Acetaminophen 650 mg 09/30/19 01:35 10/02/19 06:23 Tylenol Tablet PO 650 mg Q4H PRN Administration Mild Pain (1-3) or Fever Albuterol 5 mg 10/03/19 14:00 10/03/19 14:00 Albuterol Sulf Neb 2.5mg/0.5ml INHALATION 5 mg Q6HRT DEJON Administration Alprazolam 0.5 mg 09/27/19 21:21 09/29/19 21:07 Xanax PO 0.5 mg
--- NOTE | 2019-10-03 14:19 | PCDIET ---
Nutrition Follow-Up Complete: Nutrition Diagnosis: Inadequate oral intake related to decreased appetite likely due to multiple health conditions as evidenced by 11.8% weight loss x 2 months and current average intake of 30%. Nutrition Goal: Patient to consume 50% of meals/supplements or greater. Goal met. Average intake from 10/01/19 has been 50% of recorded meals. Recommend liberalizing diet to 2g sodium, 1000mL fluid, given current intakes with low potassium and phosphorus levels. Recommend continuing Nepro BID, as patient somewhat accepting. Last recorded weight is 125 kg which is increased from last review. CXR showed mild CHF. Bowel Motility: +Liquid BM per rectal tube. Labs Reviewed: Glu (162), Jesus Ca (8.92), Alb (2.1), PO4 (1.8) Meds Noted: Albuterol, Novolog, Questran, Atrovent, Epogen, Florastor, Pepcid, NS at 125mL/hr Additional Notes: Patient received KCl replacement today. Recommend phosphorus replacement, if medically appropriate. Right heel stasis ulcer. Will continue to monitor with same goal. Nutrition Monitoring and Evaluation: Follow up every 5 days.
[2019-10-03 14:41] LABS: Glucose Point of Care 189 (65-105)
--- NOTE | 2019-10-03 17:58 | P.PNIM_ITS ---
Progress Note: A&P Assessment and Plan (1) C. difficile colitis: Code(s): A04.72 - Enterocolitis due to Clostridium difficile, not specified as recurrent Status: Acute Assessment and Plan: * Given recent C diff, likely this is a recurrence and there is no need to retest. * Fidaxomicin first dose 4/3 PM.(01/02) * 4/9 PM will receive dose 13of 20 (10 days) * Plan tapering dose of vancomycin following the 10 day course of fidaxomicin (2) Atrial fibrillation with RVR: Code(s): I48.91 - Unspecified atrial fibrillation Status: Acute Assessment and Plan: * 7Continue amiodarone IV as atrial fib recurred * 09/29 Added IV metoprolol * 09/29 Added IV digoxin 250mcg x 1 * 09/29 Fluid bolus for hypotension * Echo 09/03/19 with LVEF 65-70%, severe pulmonary HTN (60mmHg) * continue ASA with high risk bleed with full anticoagulation with colitis (3) End-stage renal disease on hemodialysis: Code(s): N18.6 - End stage renal disease; Z99.2 - Dependence on renal dialysis Status: Acute Assessment and Plan: * Dr. Tang consulted for hemodialysis.M,W,F * Mild fluid overloaded today as evidence by physical exam and chest x-ray. * Dialysis removed 2 L fluid and will repeat 10/03 (4) Chronic anemia: Code(s): D64.9 - Anemia, unspecified Status: Acute Assessment and Plan: * Hemoglobin and hematocrit are stable on review of previous labs * Likely anemia of chronic kidney disease * Epogen per renal (5) Suspected sleep apnea: Code(s): R29.818 - Other symptoms and signs involving the nervous system Status: Acute Assessment and Plan: * Pulmonology recommends BiPAP, 14/5 with a rate of 14, to be used while sleeping. * Patient is awaiting formal outpatient polysomnogram. 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 * Low-dose Lantus. * Sliding scale insulin, Accu-Cheks, and hypoglycemic protocol. * 10/02 FBS 150 (7) Hypertension: Qualifiers: Hypertension type: essential hypertension Qualified Code(s): I10 - Essential (primary) hypertension Code(s): I10 - Essential (primary) hypertension Status: Acute Assessment and Plan: * Due to soft blood pressure continue to hold antihypertensives metoprolol, hydralazine, and lisinopril (8) Sepsis: Qualifiers: Sepsis acute organ dysfunction status: without acute organ dysfunction Sepsis type: sepsis due to unspecified organism Qualified Code(s): A41.9 - Sepsis, unspecified organism Code(s): A41.9 - Sepsis, unspecified organism Status: Acute Assessment and Plan: * Present on admission and supported by relative hypotension (responsive to IV fluids), fever, and leukocytosis in the setting of C diff colitis. * Resolved (9) Pulmonary hypertension: Code(s): I27.20 - Pulmonary hypertension, unspecified Status: Acute Assessment and Plan: per echo (10) Cirrhosis: Code(s): K74.60 - Unspecified cirrhosis of liver Status: Acute Assessment and Plan:
--- NOTE | 2019-10-03 17:58 | PM.IMPN ---
Progress Note: A&P Assessment and Plan (1) C. difficile colitis: Code(s): A04.72 - Enterocolitis due to Clostridium difficile, not specified as recurrent Status: Acute Assessment and Plan: Given recent C diff, likely this is a recurrence and there is no need to retest. Fidaxomicin first dose 4/3 PM.(01/02) 4/9 PM will receive dose 13of 20 (10 days) Plan tapering dose of vancomycin following the 10 day course of fidaxomicin (2) Atrial fibrillation with RVR: Code(s): I48.91 - Unspecified atrial fibrillation Status: Acute Assessment and Plan: 7Continue amiodarone IV as atrial fib recurred 09/29 Added IV metoprolol 09/29 Added IV digoxin 250mcg x 1 09/29 Fluid bolus for hypotension Echo 09/03/19 with LVEF 65-70%, severe pulmonary HTN (60mmHg) continue ASA with high risk bleed with full anticoagulation with colitis (3) End-stage renal disease on hemodialysis: Code(s): N18.6 - End stage renal disease; Z99.2 - Dependence on renal dialysis Status: Acute Assessment and Plan: Dr. Tang consulted for hemodialysis.M,W,F Mild fluid overloaded today as evidence by physical exam and chest x-ray. Dialysis removed 2 L fluid and will repeat 10/03 (4) Chronic anemia: Code(s): D64.9 - Anemia, unspecified Status: Acute Assessment and Plan: Hemoglobin and hematocrit are stable on review of previous labs Likely anemia of chronic kidney disease Epogen per renal (5) Suspected sleep apnea: Code(s): R29.818 - Other symptoms and signs involving the nervous system Status: Acute Assessment and Plan: Pulmonology recommends BiPAP, 14/5 with a rate of 14, to be used while sleeping. Patient is awaiting formal outpatient polysomnogram. 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 Low-dose Lantus. Sliding scale insulin, Accu-Cheks, and hypoglycemic protocol. 10/02 FBS 150 (7) Hypertension: Qualifiers: Hypertension type: essential hypertension Qualified Code(s): I10 - Essential (primary) hypertension Code(s): I10 - Essential (primary) hypertension Status: Acute Assessment and Plan: Due to soft blood pressure continue to hold antihypertensives metoprolol, hydralazine, and lisinopril (8) Sepsis: Qualifiers: Sepsis acute organ dysfunction status: without acute organ dysfunction Sepsis type: sepsis due to unspecified organism Qualified Code(s): A41.9 - Sepsis, unspecified organism Code(s): A41.9 - Sepsis, unspecified organism Status: Acute Assessment and Plan: Present on admission and supported by relative hypotension (responsive to IV fluids), fever, and leukocytosis in the setting of C diff colitis. Resolved (9) Pulmonary hypertension: Code(s): I27.20 - Pulmonary hypertension, unspecified Status: Acute Assessment and Plan: per echo (10) Cirrhosis: Code(s): K74.60 - Unspecified cirrhosis of liver Status: Acute Assessment and Plan: As documented on CT Abd/pelvis Mild hypersplenism Chronic with unclear etiology , probable [place] Subjective Date/time seen: 10/03/19 17:58 Interval history: Date of visit 10/02. Follow-up for: C difficile colitis, end-stage renal disease on hemodialysis, Atrial fibrillation with rapid ventricular response. Subjective: Abdominal cramps have subsided. Diarrhea. Anorexia subsided and starting to eat.. No bleeding. Slightly better each day. Rectal tube placed last
[2019-10-03 18:29] LABS: Glucose Point of Care 144 (65-105)
[2019-10-03] MEDS: SIMVASTATIN 20 MG TABLET 40 MG PO (20:53)
[2019-10-03] MEDS: ACETAMINOPHEN 325 MG TABLET 650 MG PO (20:53)
[2019-10-03] MEDS: ALPRAZOLAM 0.5 MG TABLET PO (20:53)
[2019-10-03 20:54] LABS: Glucose Point of Care 203 (65-105)
[2019-10-03] MEDS: AMIODARONE 360 MG/D5W 200 ML 360 MG/200 ML BAG 16.7 MG IV CONT (22:15)
[2019-10-04] VITALS (40 sets, daily range): BP systolic 88–136; BP diastolic 38–65; PULSE 62–858; RESP 18–32; TEMP 36.3–37.1; O2SAT 87–100
[2019-10-04] MEDS: IPRATROPIUM BR 0.02% INH SOLN 0.5 MG/2.5 ML VIAL INHALATION ×3 (02:25→19:21)
[2019-10-04] MEDS: ALBUTEROL SULFATE NEB 2.5 MG/0.5 ML INH 5 MG INHALATION ×3 (02:25→19:21)
[2019-10-04 04:57] LABS: Basophils Absolute Auto 0.1 K/mm3 (0.0-0.1); Basophils Percent Auto 0.7 % (0.2-1.2); Eosinophils Absolute Auto 0.2 K/mm3 (0-0.3); Eosinophils Percent Auto 1.4 % (0-4.4); Hematocrit 27.8 % (37.0-47.0); Hemoglobin 8.3 g/dL (12.0-15.0); Immature Granulocyte Absolute 0.73 K/mm3 (0.00-0.031); Immature Granulocyte Percent A 4.8 % (0-0.5); Lymphocytes Absolute Auto 1.55 K/mm3 (0.9-3.2); Lymphocytes Percent Auto 10.1 % (18.3-44.2); Mean Corpuscular HGB Conc 29.9 g/dl (32-36); Mean Corpuscular Hemoglobin 28.2 pg (26-34); Mean Corpuscular Volume 94.6 fl (80-100); Mean Platelet Volume 11.7 fl (7.4-10.4); Monocytes Absolute Auto 0.8 K/mm3 (0.1-0.6); Monocytes Percent Auto 5.1 % (2.6-8.5); Neutrophils Absolute Auto 11.9 K/mm3 (1.3-6.7); Neutrophils Percent Auto 77.9 % (45.5-73.1); Nucleated Red Blood Cells Perc 0.3 % (0.0-0.2); Platelet Count Result 108 k/mm3 (150-375); Red Blood Count 2.94 M/mm3 (4.2-5.4); Red Cell Distribution Width 17.8 % (11.5-14.5); White Blood Count 15.3 K/mm3 (4.5-10.0)
[2019-10-04 05:12] LABS: Blood Urea Nitrogen 35 mg/dL (7-17); Calcium 7.7 mg/dL (8.4-10.2); Carbon Dioxide 27 mmol/L (22-30); Chloride 99 mmol/L (98-107); Estimated CRCL calculation 14 ml/min; Estimated Glomerular Filt Rate 10; Glucose 136 mg/dL (65-105); Phosphorus 2.5 mg/dL (2.5-4.5); Potassium 3.7 mmol/L (3.4-5.0); Sodium 131 mmol/L (137-145)
[2019-10-04 06:21] LABS: Anisocytosis 1+ (NORMAL); Hypochromasia 1+ (NORMAL); Platelet Estimate Decreased (Adequate)
[2019-10-04 08:35] LABS: Glucose Point of Care 147 (65-105)
[2019-10-04] MEDS: ACETAMINOPHEN 325 MG TABLET 650 MG PO ×3 (08:37→20:47)
[2019-10-04] MEDS: FIDAXOMICIN 200 MG TABLET PO ×2 (08:38→20:46)
[2019-10-04] MEDS: SACCHAROMYCES BOULARDII 250 MG CAPSULE PO ×2 (08:38→15:58)
[2019-10-04] MEDS: TOLNAFTATE 1% POWDER 45 GM BTL 1 APPLIC TOPICAL ×2 (08:39→20:45)
[2019-10-04] MEDS: FAMOTIDINE 20 MG TABLET PO ×2 (08:39→20:46)
[2019-10-04] MEDS: ASPIRIN 81 MG ENTERIC TABLET PO (08:39)
--- NOTE | 2019-10-04 09:30 | PC.NURSE ---
Patient to dialysis via bed.
--- NOTE | 2019-10-04 10:04 | PM.PNCARD ---
Progress Note: A&P Additional Plan Will add scheduled beta-merry dose to provide better heart rate control and hopefully increased propensity to remain in sinus rhythm Patient is not in is not a candidate to be anticoagulated Try to transition to oral amiodarone in the next 24-48 hours Luis Manuel Toth MD [facility] Time Spent With Patient Time with patient: less than 15 minutes Subjective Date/time seen: Date of service: 10/04/19 10:04 Interval history: Follow-up visit for atrial fib/RVR occurring in a paroxysmal fashion in the setting of C difficile colitis. Patient currently has intravenous amiodarone running. Currently in AF with RVR but according to telemetry is in and out of sinus rhythm with a lot of APCs as well. Currently getting hemodialysis Exam Const: General: no acute distress and uncomfortable HENMT: Mouth: Yes dry mucous membranes Eyes: Sclera: sclerae normal Pupils: Equal, round and reactive pupils present Neck: Neck: supple and no JVD Thyroid: thyroid normal Resp: Effort & Inspection: normal respiratory effort Auscultation: clear to auscultation bilaterally Cardio: Rate: tachycardic Rhythm: abnormal rhythm irregularly irregular GI: Auscultation: normal bowel sounds Skin: General skin exam: normal color Objective Data Vital Signs Vital Signs: Vital Signs - 24 hr 10/03/19 12:00 10/03/19 14:00 10/03/19 14:02 Temperature 36.8 C Pulse Rate 76 76 73 Respiratory Rate 28 H 18 Blood Pressure 134/47 L Pulse Oximetry 97 10/03/19 14:12 10/03/19 16:00 10/03/19 17:00 Temperature 36.8 C Pulse Rate 76 75 77 Respiratory Rate 18 18 18 Blood Pressure 121/56 L Pulse Oximetry 97 97 10/03/19 18:00 10/03/19 20:00 10/03/19 21:40 Temperature 36.6 C Pulse Rate 75 69 124 H Respiratory Rate 20 20 Blood Pressure 113/50 L Pulse Oximetry 99 10/03/19 21:52 10/03/19 21:58 10/03/19 22:00 Temperature Pulse Rate 127 H 124 H 127 H Respiratory Rate 18 30 H Blood Pressure Pulse Oximetry 93 10/04/19 00:00 10/04/19 02:00 10/04/19 02:23 Temperature 37.1 C Pulse Rate 72 67 79 Respiratory Rate 20 28 H Blood Pressure 131/52 L Pulse Oximetry 93 92 10/04/19 02:30 10/04/19 02:42 10/04/19 04:00 Temperature 36.5 C Pulse Rate 79 82 96 Respiratory Rate 18 18 20 Blood Pressure 127/52 L Pulse Oximetry 95 10/04/19 06:00 10/04/19 08:00 Temperature 36.8 C Pulse Rate 62 93 Respiratory Rate 32 H Blood Pressure 132/48 L Pulse Oximetry 87 L Intake/Output Intake/Output: Intake & Output 10/01/19 10/02/19 10/03/19 10/04/19 23:59 23:59 23:59 23:59 Intake Total 4000 3037 1490 25 Output Total 1000 2500 600 Balance 3000 537 890 25 Meds/Results Medications: Active Medications Generic Name Dose Route Start Last Admin Trade Name Freq PRN Reason Stop Dose Admin Acetaminophen 650 mg 09/30/19 01:35 10/04/19 08:37 Tylenol Tablet PO 650 mg Q4H PRN Administration Mild Pain (1-3) or Fever Albuterol 5 mg 10/03/19 14:00 10/04/19 08:53 Albuterol Sulf Neb 2.5mg/0.5ml INHALATION Not Given Q6HRT DEJON Alprazolam 0.5 mg 09/27/19 21:21 10/03/19 20:53 Xanax PO 0.5 mg TID PRN Administration Anxiety Aspirin 81 mg 09/28/19 09:00 10/04/19 08:39 Aspirin Ec PO 81 mg DAILY DEJON Administration Cholestyramine Resin 4 gm 09/30/19 21:00 10/03/19 18:54 Questran Light Packet PO 4 gm BID@1000,1800 DEJON Administration Dextrose 12.5 gm 09/27/19 21:09 Dextrose 50% Syringe IV PUSH PRN PRN Hypoglycemia Protocol Epoetin Cameron 10,000 units 09/30/19 11:00 10/02/19 18:31 Epogen IV PUSH 10,000 units MOWEFR DEJON Administration Famotidine 20 mg 09/28/19 09:00 10/04/19 08:39 Pepcid PO 20 mg Q12HR DEJON Administration Fidaxomicin 200 mg 09/27/19 21:00 10/04/19 08:38 Dificid PO 10/07/19 21:01 200 mg Q12HR DEJON Administration Glucagon 1 mg 09/27/19 21:09 Glucagon
[2019-10-04] MEDS: AMIODARONE 360 MG/D5W 200 ML 360 MG/200 ML BAG 16.7 MG IV CONT ×2 (10:25→21:27)
--- NOTE | 2019-10-04 12:10 | PM.PNNEP ---
Progress Note: A&P Assessment and Plan (1) End-stage renal disease on hemodialysis: Code(s): N18.6 - End stage renal disease; Z99.2 - Dependence on renal dialysis Status: Acute Assessment and Plan: Aurelia has end-stage renal disease. She on dialysis now. She is less short of breath. I instructed the nurses to try to take fluid off of her if possible. She did drop her blood pressure early in the treatment. I told them to try albumin and midodrine to see if the blood pressure would stay up. (2) C. difficile colitis: Code(s): A04.72 - Enterocolitis due to Clostridium difficile, not specified as recurrent Status: Acute Assessment and Plan: The patient has copious amounts of diarrhea. Belly pain is better. Overall the seems improved. on dificid (3) Anemia: Qualifiers: Anemia type: iron deficiency Iron deficiency anemia type: unspecified iron deficiency Qualified Code(s): D50.9 - Iron deficiency anemia, unspecified Code(s): D64.9 - Anemia, unspecified Status: Chronic Assessment and Plan: Hemoglobin is 8.3 She is getting Epogen per dialysis. (4) Suspected sleep apnea: Code(s): R29.818 - Other symptoms and signs involving the nervous system Status: Acute Assessment and Plan: This is going to be evaluated as an outpatient (5) Type 2 diabetes mellitus: Qualifiers: Diabetes mellitus long term care administrator insulin use: with correction use Diabetes mellitus complication status: with hyperglycemia Qualified Code(s): E11.65 - Type 2 diabetes mellitus with hyperglycemia; Z79.4 - nursing home (current) use of insulin Code(s): E11.9 - Type 2 diabetes mellitus without complications Status: Acute Assessment and Plan: Patient is on Accu-Cheks and sliding-scale insulin (6) Sepsis: Qualifiers: Sepsis type: sepsis due to unspecified organism Sepsis acute organ dysfunction status: without acute organ dysfunction Qualified Code(s): A41.9 - Sepsis, unspecified organism Code(s): A41.9 - Sepsis, unspecified organism Status: Acute Assessment and Plan: White count is better. Blood pressure seems better as well. (7) Hypertension: Qualifiers: Hypertension type: essential hypertension Qualified Code(s): I10 - Essential (primary) hypertension Code(s): I10 - Essential (primary) hypertension Status: Acute Assessment and Plan: Blood pressure is better. It does drop with fluid removal. We will see what we can do to get some fluid off. Subjective Date/time seen: 10/04/19 12:10 Interval history: Patient is still having diarrhea. FEES is still in. Belly pain is better. Almost gone. Shortness of breath is better. She is on dialysis and tolerating well. She was seen at 11:40 a.m. Review of Systems Cardiovascular: Cardiovascular: Reports no additional cardiovascular complaints Respiratory: Respiratory: Reports no additional respiratory complaints Gastrointestinal: Gastrointestinal: Reports no additional gastrointestinal complaints Genitourinary: Genitourinary: Reports no additional female genitourinary complaints Exam Narrative: Exam Narrative: Well developed well-nourished in no acute distress Lungs clear to auscultation Heart irregular without rub Abdomen bowel sounds positive soft less tender. Extremities no edema Skin no rash or subcu nodules Objective Data Vital Signs Vital Signs: Vital Signs - 24 hr 10/03/19 14:00 10/03/19 14:02 10/03/19 14:12 Temperature Pulse Rate 76 73 76 Respiratory Rate 18 18 Blood Pressure Pulse Oximetry 10/03/19 16:00 10/03/19 17:00 10/03/19 18:00 Temperature 36.8 C Pulse Rate 75 77 75 Respiratory Rate 18 18 Blood Pressure 121/56 L Pulse Oximetry 97 97 10/03/19 20:00 10/03/19 21:40 10/03/19 21:52 Temperature 36.6 C Pulse Rate 69 124 H 127 H Respiratory Rate 20 20 18
--- NOTE | 2019-10-04 14:00 | PC.NURSE ---
Patient returned to room following dialysis.
[2019-10-04 14:19] LABS: Glucose Point of Care 250 (65-105)
[2019-10-04] MEDS: METOPROLOL TARTRATE 25 MG TABLET PO ×2 (14:22→20:46)
[2019-10-04] MEDS: INSULIN ASPART (*BKC) 100 UNITS/ML SUB-Q (14:23)
[2019-10-04] MEDS: CHOLESTYRAMINE LIGHT 4 GM POWD.PACK PO ×2 (14:23→18:51)
--- NOTE | 2019-10-04 15:32 | WPDINFPN2 ---
Progress Note: A&P Assessment and Plan (1) C. difficile colitis: Code(s): A04.72 - Enterocolitis due to Clostridium difficile, not specified as recurrent Status: Acute Assessment and Plan: 1. Relapsed C diff infection, still with high WBC though stable. Stool in bag: brown and no form 2. Cirrhosis 3. CRF on HD 4. Dyspnea, possibly related to her chronic renal failure. Doubt HCAP REC Fidaxomicin # 8 / 10 days, followed by vancomycin orally slow taper over 6 weeks (125 tid x 2 weeks, bid x 2 weeks, then daily x 2 weeks). Nutritional support underway Subjective Date/time seen: 10/04/19 15:32 Interval history: dyspnea somewhat better. HD earlier today Exam Narrative: Exam Narrative: afebrile Const: General: no acute distress Resp: Effort & Inspection: normal respiratory effort Auscultation: clear to auscultation bilaterally Cardio: Rate: regular rate Rhythm: regular rhythm Heart sounds: no gallops and no murmurs GI: Inspection: non-distended GI Palp: Yes Soft to palpation and No Tenderness to palpation present (GI) Other: about 500 cc in bag now, I/O records indicate last emptied 2 days ago Skin: General skin exam: normal color and no rashes or lesions noted Objective Data Vital Signs Vital Signs: Vital Signs - 24 hr 10/03/19 16:00 10/03/19 17:00 10/03/19 18:00 Temperature 36.8 C Pulse Rate 75 77 75 Respiratory Rate 18 18 Blood Pressure 121/56 L Pulse Oximetry 97 97 10/03/19 20:00 10/03/19 21:40 10/03/19 21:52 Temperature 36.6 C Pulse Rate 69 124 H 127 H Respiratory Rate 20 20 18 Blood Pressure 113/50 L Pulse Oximetry 99 10/03/19 21:58 10/03/19 22:00 10/04/19 00:00 Temperature 37.1 C Pulse Rate 124 H 127 H 72 Respiratory Rate 30 H 20 Blood Pressure 131/52 L Pulse Oximetry 93 93 10/04/19 02:00 10/04/19 02:23 10/04/19 02:30 Temperature Pulse Rate 67 79 79 Respiratory Rate 28 H 18 Blood Pressure Pulse Oximetry 92 10/04/19 02:42 10/04/19 04:00 10/04/19 06:00 Temperature 36.5 C Pulse Rate 82 96 62 Respiratory Rate 18 20 Blood Pressure 127/52 L Pulse Oximetry 95 10/04/19 08:00 10/04/19 09:00 10/04/19 09:39 Temperature 36.8 C Pulse Rate 93 133 H Respiratory Rate 32 H Blood Pressure 132/48 L 119/55 L Pulse Oximetry 97 96 10/04/19 10:00 10/04/19 10:05 10/04/19 10:15 Temperature 37.0 C Pulse Rate 128 H 133 H 114 H Respiratory Rate 20 Blood Pressure 110/50 L 136/65 95/38 L Pulse Oximetry 10/04/19 10:30 10/04/19 10:45 10/04/19 11:00 Temperature Pulse Rate 120 H 858 H 136 H Respiratory Rate Blood Pressure 103/49 L 108/56 L 102/47 L Pulse Oximetry 10/04/19 11:15 10/04/19 11:21 10/04/19 11:45 Temperature Pulse Rate 132 H 133 H 115 H Respiratory Rate Blood Pressure 88/41 L 109/52 L 98/54 L Pulse Oximetry 10/04/19 12:00 10/04/19 12:15 10/04/19 12:34 Temperature 36.7 C Pulse Rate 81 103 H 121 H Respiratory Rate 20 Blood Pressure 113/51 L 116/54 L 115/54 L Pulse Oximetry 95 10/04/19 12:51 10/04/19 13:00 10/04/19 13:18 Temperature Pulse Rate 76 107 H 113 H Respiratory Rate Blood Pressure 97/40 L 106/46 L 97/44 L Pulse Oximetry 10/04/19 13:28 10/04/19 14:00 10/04/19 14:11 Temperature 36.7 C Pulse Rate 110 H 82 Respiratory Rate 18 Blood Pressure 115/46 L Pulse Oximetry 97 10/04/19 14:22 10/04/19 14:50 10/04/19 15:05 Temperature Pulse Rate 95 83 86 Respiratory Rate 20 20 Blood Pressure Pulse Oximetry Intake/Output Intake/Output: Intake & Output 10/01/19 10/02/19 10/03/19 10/04/19 23:59 23:59 23:59 23:59 Intake Total 4000 3037 1490 325 Output Total 1000 2500 600 1560 Balance 3000 537 890 -1235 Meds/Results Medications: Active Medications Generic Name Dose Route Start Last Admin Trade Name Miguelq PRN Reason Stop Dose Admin Acetaminophen 650 mg 09/30/19 01:35 10/04/19 08:37 Tylenol Tablet PO 6
--- NOTE | 2019-10-04 16:11 | P.PNIM_ITS ---
Progress Note: A&P Assessment and Plan (1) C. difficile colitis: Code(s): A04.72 - Enterocolitis due to Clostridium difficile, not specified as recurrent Status: Acute Assessment and Plan: * Given recent C diff, likely this is a recurrence and there is no need to retest. * Fidaxomicin first dose 4/3 PM.(02/02) * 10 PM will receive dose 115of 20 (10 days) * Plan tapering dose of vancomycin following the 10 day course of fidaxomicin * clinically improving but still leukocytosis (2) Atrial fibrillation with RVR: Code(s): I48.91 - Unspecified atrial fibrillation Status: Acute Assessment and Plan: * 10/03 Continue amiodarone IV as atrial fib recurred, probable oral 1-2 days * 09/29 Added IV metoprolol * 09/29 Added IV digoxin 250mcg x 1 * 09/29 Fluid bolus for hypotension * Echo 09/03/19 with LVEF 65-70%, severe pulmonary HTN (60mmHg) * continue ASA with high risk bleed with full anticoagulation with colitis (3) End-stage renal disease on hemodialysis: Code(s): N18.6 - End stage renal disease; Z99.2 - Dependence on renal dialysis Status: Acute Assessment and Plan: * Dr. Tang consulted for hemodialysis.M,W,F * Mild fluid overloaded 10/01 as evidence by physical exam and chest x-ray. * Dialysis removed 2 L fluid and will repeat dialysis today 10/03 (4) Chronic anemia: Code(s): D64.9 - Anemia, unspecified Status: Acute Assessment and Plan: * Hemoglobin and hematocrit are stable on review of previous labs * Likely anemia of chronic kidney disease * Epogen per renal (5) Suspected sleep apnea: Code(s): R29.818 - Other symptoms and signs involving the nervous system Status: Acute Assessment and Plan: * Pulmonology recommends BiPAP, 14/5 with a rate of 14, to be used while sleeping. * Patient is awaiting formal outpatient polysomnogram. (6) Type 2 diabetes mellitus: Qualifiers: Diabetes mellitus tank terminal gauger insulin use: with tank terminal gauger use Diabetes mellitus complication status: with hyperglycemia Qualified Code(s): E11.65 - Type 2 diabetes mellitus with hyperglycemia; Z79.4 - [facility] (current) use of insulin Code(s): E11.9 - Type 2 diabetes mellitus without complications Status: Acute Assessment and Plan: * Well controlled with a recent hemoglobin A1c of 6.1%. * Low-dose Lantus. * Sliding scale insulin, Accu-Cheks, and hypoglycemic protocol. * 10/03 FBS 136 (7) Hypertension: Qualifiers: Hypertension type: essential hypertension Qualified Code(s): I10 - Essential (primary) hypertension Code(s): I10 - Essential (primary) hypertension Status: Acute Assessment and Plan: * Due to soft blood pressure continue to hold antihypertensives hydralazine, and lisinopril but cardiology restarting beta merry for afob (8) Sepsis: Qualifiers: Sepsis type: sepsis due to unspecified organism Sepsis acute organ dysfunction status: without acute organ dysfunction Qualified Code(s): A41.9 - Sepsis, unspecified organism Code(s): A41.9 - Sepsis, unspecified organism Status: Acute Assessment and Plan: * Present on admission and supported by relative hypotension (responsive to IV fluids), fever, and leukocytosis in the setting of C diff colitis. * Resolved (9) Pulmonary hypertension: Code(s): I27.20 - Pulmonary hypertension, unspecified Status: Acute Assessment and Plan: per echo (10) Cirrhosis:
--- NOTE | 2019-10-04 16:11 | PM.IMPN ---
Progress Note: A&P Assessment and Plan (1) C. difficile colitis: Code(s): A04.72 - Enterocolitis due to Clostridium difficile, not specified as recurrent Status: Acute Assessment and Plan: Given recent C diff, likely this is a recurrence and there is no need to retest. Fidaxomicin first dose 4/3 PM.(02/02) 4/10 PM will receive dose 115of 20 (10 days) Plan tapering dose of vancomycin following the 10 day course of fidaxomicin clinically improving but still leukocytosis (2) Atrial fibrillation with RVR: Code(s): I48.91 - Unspecified atrial fibrillation Status: Acute Assessment and Plan: 10/03 Continue amiodarone IV as atrial fib recurred, probable oral 1-2 days 09/29 Added IV metoprolol 09/29 Added IV digoxin 250mcg x 1 09/29 Fluid bolus for hypotension Echo 09/03/19 with LVEF 65-70%, severe pulmonary HTN (60mmHg) continue ASA with high risk bleed with full anticoagulation with colitis (3) End-stage renal disease on hemodialysis: Code(s): N18.6 - End stage renal disease; Z99.2 - Dependence on renal dialysis Status: Acute Assessment and Plan: Dr. Tang consulted for hemodialysis.M,W,F Mild fluid overloaded 10/01 as evidence by physical exam and chest x-ray. Dialysis removed 2 L fluid and will repeat dialysis today 10/03 (4) Chronic anemia: Code(s): D64.9 - Anemia, unspecified Status: Acute Assessment and Plan: Hemoglobin and hematocrit are stable on review of previous labs Likely anemia of chronic kidney disease Epogen per renal (5) Suspected sleep apnea: Code(s): R29.818 - Other symptoms and signs involving the nervous system Status: Acute Assessment and Plan: Pulmonology recommends BiPAP, 14/5 with a rate of 14, to be used while sleeping. Patient is awaiting formal outpatient polysomnogram. (6) Type 2 diabetes mellitus: Qualifiers: Diabetes mellitus retirement insulin use: with retirement use Diabetes mellitus complication status: with hyperglycemia Qualified Code(s): E11.65 - Type 2 diabetes mellitus with hyperglycemia; Z79.4 - [facility] (current) use of insulin Code(s): E11.9 - Type 2 diabetes mellitus without complications Status: Acute Assessment and Plan: Well controlled with a recent hemoglobin A1c of 6.1%. Low-dose Lantus. Sliding scale insulin, Accu-Cheks, and hypoglycemic protocol. 10/03 FBS 136 (7) Hypertension: Qualifiers: Hypertension type: essential hypertension Qualified Code(s): I10 - Essential (primary) hypertension Code(s): I10 - Essential (primary) hypertension Status: Acute Assessment and Plan: Due to soft blood pressure continue to hold antihypertensives hydralazine, and lisinopril but cardiology restarting beta merry for afob (8) Sepsis: Qualifiers: Sepsis type: sepsis due to unspecified organism Sepsis acute organ dysfunction status: without acute organ dysfunction Qualified Code(s): A41.9 - Sepsis, unspecified organism Code(s): A41.9 - Sepsis, unspecified organism Status: Acute Assessment and Plan: Present on admission and supported by relative hypotension (responsive to IV fluids), fever, and leukocytosis in the setting of C diff colitis. Resolved (9) Pulmonary hypertension: Code(s): I27.20 - Pulmonary hypertension, unspecified Status: Acute Assessment and Plan: per echo (10) Cirrhosis: Code(s): K74.60 - Unspecified cirrhosis of liver Status: Acute Assessment and Plan: As documented on CT Abd/pelvis Mild hypersplenism Chronic with unclear etiology , probable [place] Subjective Date/time seen: 10/04/19 16:11 Interval history: Date of visit 10/03. Follow-up for: C difficile colitis, end-stage renal disease on hemodialysis, Atrial fibrillation with rapid ventricular response. Subjective: Abdominal cramps have
[2019-10-04 18:37] LABS: Glucose Point of Care 104 (65-105)
[2019-10-04] MEDS: SIMVASTATIN 20 MG TABLET 40 MG PO (20:46)
[2019-10-04 21:34] LABS: Glucose Point of Care 99 (65-105)
[2019-10-05] VITALS (27 sets, daily range): BP systolic 90–136; BP diastolic 40–59; PULSE 62–133; RESP 18–30; TEMP 36.3–36.9; O2SAT 93–98
[2019-10-05] MEDS: IPRATROPIUM BR 0.02% INH SOLN 0.5 MG/2.5 ML VIAL INHALATION ×3 (01:00→19:25)
[2019-10-05] MEDS: ALBUTEROL SULFATE NEB 2.5 MG/0.5 ML INH 5 MG INHALATION ×3 (01:05→19:25)
[2019-10-05] MEDS: ALPRAZOLAM 0.5 MG TABLET PO ×2 (05:39→21:29)
[2019-10-05] MEDS: ACETAMINOPHEN 325 MG TABLET 650 MG PO ×3 (07:17→20:08)
[2019-10-05] MEDS: FAMOTIDINE 20 MG TABLET PO ×2 (08:19→20:07)
[2019-10-05] MEDS: SACCHAROMYCES BOULARDII 250 MG CAPSULE PO ×2 (08:19→17:34)
[2019-10-05] MEDS: FIDAXOMICIN 200 MG TABLET PO ×2 (08:19→20:07)
[2019-10-05] MEDS: ASPIRIN 81 MG ENTERIC TABLET PO (08:19)
[2019-10-05] MEDS: TOLNAFTATE 1% POWDER 45 GM BTL 1 APPLIC TOPICAL ×2 (08:20→20:13)
[2019-10-05] MEDS: METOPROLOL TARTRATE 25 MG TABLET PO ×2 (08:22→20:07)
[2019-10-05 08:58] LABS: Glucose Point of Care 111 (65-105)
[2019-10-05 09:13] LABS: Basophils Absolute Auto 0.1 K/mm3 (0.0-0.1); Basophils Percent Auto 0.3 % (0.2-1.2); Eosinophils Absolute Auto 0.3 K/mm3 (0-0.3); Eosinophils Percent Auto 1.5 % (0-4.4); Hematocrit 30.4 % (37.0-47.0); Hemoglobin 9.3 g/dL (12.0-15.0); Immature Granulocyte Absolute 0.57 K/mm3 (0.00-0.031); Immature Granulocyte Percent A 3.2 % (0-0.5); Lymphocytes Absolute Auto 1.67 K/mm3 (0.9-3.2); Lymphocytes Percent Auto 9.5 % (18.3-44.2); Mean Corpuscular HGB Conc 30.6 g/dl (32-36); Mean Corpuscular Hemoglobin 28.4 pg (26-34); Mean Platelet Volume 10.9 fl (7.4-10.4); Monocytes Absolute Auto 0.8 K/mm3 (0.1-0.6); Monocytes Percent Auto 4.4 % (2.6-8.5); Neutrophils Absolute Auto 14.3 K/mm3 (1.3-6.7); Neutrophils Percent Auto 81.1 % (45.5-73.1); Nucleated Red Blood Cells Perc 0.2 % (0.0-0.2); Platelet Count Result 100 k/mm3 (150-375); Red Blood Count 3.27 M/mm3 (4.2-5.4); Red Cell Distribution Width 18.2 % (11.5-14.5); White Blood Count 17.6 K/mm3 (4.5-10.0)
--- NOTE | 2019-10-05 09:48 | PM.PNNEP ---
Progress Note: A&P Assessment and Plan (1) End-stage renal disease on hemodialysis: Code(s): N18.6 - End stage renal disease; Z99.2 - Dependence on renal dialysis Status: Acute Assessment and Plan: Aurelia has end-stage renal disease. She had her dialysis yesterday. She is comfortable breathing. (2) C. difficile colitis: Code(s): A04.72 - Enterocolitis due to Clostridium difficile, not specified as recurrent Status: Acute Assessment and Plan: The patient has copious amounts of diarrhea. Belly pain is better. Overall the seems improved. on dificid (3) Anemia: Qualifiers: Anemia type: iron deficiency Iron deficiency anemia type: unspecified iron deficiency Qualified Code(s): D50.9 - Iron deficiency anemia, unspecified Code(s): D64.9 - Anemia, unspecified Status: Chronic Assessment and Plan: Hemoglobin is She is getting Epogen per dialysis. 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: with assisted use Diabetes mellitus complication status: with hyperglycemia Qualified Code(s): E11.65 - Type 2 diabetes mellitus with hyperglycemia; Z79.4 - [facility] (current) use of insulin Code(s): E11.9 - Type 2 diabetes mellitus without complications Status: Acute Assessment and Plan: Patient is on Accu-Cheks and sliding-scale insulin (6) Sepsis: Qualifiers: Sepsis type: sepsis due to unspecified organism Sepsis acute organ dysfunction status: without acute organ dysfunction Qualified Code(s): A41.9 - Sepsis, unspecified organism Code(s): A41.9 - Sepsis, unspecified organism Status: Acute Assessment and Plan: White count is better. Blood pressure seems better as well. (7) Hypertension: Qualifiers: Hypertension type: essential hypertension Qualified Code(s): I10 - Essential (primary) hypertension Code(s): I10 - Essential (primary) hypertension Status: Acute Assessment and Plan: Blood pressure is better. Subjective Date/time seen: 10/05/19 09:48 Interval history: Patient is still having diarrhea. FEES is still in. Belly pain is just about gone. He she has a lot of discomfort in the anus where the fees is. Review of Systems Cardiovascular: Cardiovascular: Reports no additional cardiovascular complaints Respiratory: Respiratory: Reports no additional respiratory complaints Gastrointestinal: Gastrointestinal: Reports no additional gastrointestinal complaints Genitourinary: Genitourinary: Reports no additional female genitourinary complaints Exam Narrative: Exam Narrative: Well developed well-nourished in no acute distress Lungs clear bilaterally Heart irregular without rub Abdomen bowel sounds positive soft less tender. Extremities no edema or cyanosis Skin no rash or subcu nodules Objective Data Vital Signs Vital Signs: Vital Signs - 24 hr 10/04/19 10:00 10/04/19 10:05 10/04/19 10:15 Temperature 37.0 C Pulse Rate 128 H 133 H 114 H Respiratory Rate 20 Blood Pressure 110/50 L 136/65 95/38 L Pulse Oximetry 10/04/19 10:30 10/04/19 10:45 10/04/19 11:00 Temperature Pulse Rate 120 H 858 H 136 H Respiratory Rate Blood Pressure 103/49 L 108/56 L 102/47 L Pulse Oximetry 10/04/19 11:15 10/04/19 11:21 10/04/19 11:45 Temperature Pulse Rate 132 H 133 H 115 H Respiratory Rate Blood Pressure 88/41 L 109/52 L 98/54 L Pulse Oximetry 10/04/19 12:00 10/04/19 12:15 10/04/19 12:34 Temperature 36.7 C Pulse Rate 81 103 H 121 H Respiratory Rate 20 Blood Pressure 113/51 L 116/54 L 115/54 L Pulse Oximetry 95 10/04/19 12:51 10/04/19 13:00 10/04/19
[2019-10-05] MEDS: AMIODARONE 360 MG/D5W 200 ML 360 MG/200 ML BAG 16.7 MG IV CONT ×2 (09:58→22:44)
[2019-10-05] MEDS: CHOLESTYRAMINE LIGHT 4 GM POWD.PACK PO ×2 (09:58→17:34)
--- NOTE | 2019-10-05 09:59 | PM.PNCARD ---
Progress Note: A&P Assessment and Plan (1) Atrial fibrillation with RVR: Code(s): I48.91 - Unspecified atrial fibrillation Status: Acute Assessment and Plan: New onset atrial fibrillation with RVR, continues to have PAF RVR on IV amiodarone. Had 3rd dose po metoprolol this a.m.; will increase dose if she cont to have PAF RVR. Con IV amiodarone. She has diffuse colitis on CT scan. At this time, she would not be an ideal candidate for anticoagulation. However, once she is clinically stable, her candidacy for chronic anticoagulation needs to be determined. 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 Management by Dr. Gonzalez. (3) C. difficile colitis: Code(s): A04.72 - Enterocolitis due to Clostridium difficile, not specified as recurrent Status: Acute Assessment and Plan: Management as per primary team (4) Diastolic CHF: Code(s): I50.30 - Unspecified diastolic (congestive) heart failure Status: Acute Assessment and Plan: Volume overload with CHF. I's and O's: 1800 cc's negative yesterday after HD Currently off her usual lisinopril, hydralazine with soft BP at times. Cont dialysis. Subjective Date/time seen: 10/05/19 09:59 Interval history: Follow-up visit for atrial fib/RVR occurring in a paroxysmal fashion in the setting of C difficile colitis. ESRD. DATE OF SERVICE: 10/05/2019 Started on metoprolol 25 mg BID 10/04/2019 a.m. Patient currently has intravenous amiodarone running. Still having PAF with RVR HR 120-130's at times, up to 1.5 hours, asymptomatic. C/o severe pain in rectum which pt thinks is 2nd to rectal tube. On O2, 2-3 liters w/ good O2 sat. CPAP at night. Had HD yesterday. Review of Systems Constitutional: Constitutional: Reports fatigue ENT: Denies epistaxis Cardiovascular: Cardiovascular: Denies chest pain and Denies palpitations Respiratory: Respiratory: Denies dyspnea Gastrointestinal: Gastrointestinal: Reports abdominal pain and Reports diarrhea (Rectal tube) Musculoskeletal: Musculoskeletal: Reports stiffness Neurologic: Denies Abnormal speech present Psychiatric: Psychiatric: Reports no additional psychiatric complaints Exam Const: General: no acute distress and uncomfortable HENMT: General nose exam: no epistaxis Mouth: Yes moist mucous membranes Eyes: EOM: EOMs intact bilaterally Neck: Neck: supple Resp: Effort & Inspection: normal respiratory effort Auscultation: diminished lung sounds (decreased BS bilaterally) Cardio: Rate: regular rate Rhythm: regular rhythm Heart sounds: no murmurs Other: Distant heart sounds GI: Inspection: distended Auscultation: abnormal bowel sounds (Decreased BS, rectal tube w/ pruitt watery diarrhea) Skin: Wounds: wounds noted (Right heel has bandage) Neuro: Cognition (Neuro): normal cognition Speech: normal speech Extrem: Right lower extremity: no edema Left lower extremity: no edema Psych: Mental Status: mental status grossly normal Affect: normal affect Objective Data Vital Signs Vital Signs: Vital Signs - 24 hr 10/04/19 10:00 10/04/19 10:05 10/04/19 10:15 Temperature 98.6 F Pulse Rate 128 H 133 H 114 H Respiratory Rate 20 Blood Pressure 110/50 L 136/65 95/38 L Pulse Oximetry 10/04/19 10:30 10/04/19 10:45 10/04/19 11:00 Temperature Pulse Rate 120 H 858 H 136 H Respiratory Rate Blood Pressure 103/49 L 108/56 L 102/47 L Pulse Oximetry 10/04/19 11:15 10/04/19 11:21 10/04/19 11:45 Temperature Pulse Rate 132 H 133 H 115 H Respiratory Rate Blood Pressure 88/41 L 109/52 L 98/54 L Pulse Oximetry 10/04/19 12:00 10/04/19 12:15 10/04/19 12:34 Temperature
[2019-10-05 10:30] LABS: Hypochromasia 1+ (NORMAL)
[2019-10-05 10:31] LABS: Ovalocytes 1+ (NORMAL)
[2019-10-05 12:31] LABS: Glucose Point of Care 115 (65-105)
--- NOTE | 2019-10-05 12:50 | P.PNIM_ITS ---
Progress Note: A&P Assessment and Plan (1) C. difficile colitis: Code(s): A04.72 - Enterocolitis due to Clostridium difficile, not specified as recurrent Status: Acute Assessment and Plan: * Given recent C diff, likely this is a recurrence and there is no need to retest. * Fidaxomicin first dose 4/ PM.(03/05) * 10/04 PM will receive dose 17of 20 (10 days) * Plan tapering dose of vancomycin following the 10 day course of fidaxomicin * clinically improving each day with less abd pain and better appetite but still leukocytosis and still diarrhea but volume down some (2) Atrial fibrillation with RVR: Code(s): I48.91 - Unspecified atrial fibrillation Status: Acute Assessment and Plan: * 10/04 Continue amiodarone IV as atrial fib recurred, probable oral 1-2 days, still has runs of SR with afib * 09/29 Added IV metoprolol * 09/29 Added IV digoxin 250mcg x 1 * 09/29 Fluid bolus for hypotension * Echo 09/03/19 with LVEF 65-70%, severe pulmonary HTN (60mmHg) * continue ASA with high risk bleed with full anticoagulation with colitis (3) End-stage renal disease on hemodialysis: Code(s): N18.6 - End stage renal disease; Z99.2 - Dependence on renal dialysis Status: Acute Assessment and Plan: * Dr. Tang consulted for hemodialysis.M,W,F * Mild fluid overloaded 10/01 as evidence by physical exam and chest x-ray. * Dialysis removed 2 L fluid and will repeat dialysis Friday 10/06 (4) Chronic anemia: Code(s): D64.9 - Anemia, unspecified Status: Acute Assessment and Plan: * Hemoglobin and hematocrit are stable on review of previous labs * Likely anemia of chronic kidney disease * Epogen per renal (5) Suspected sleep apnea: Code(s): R29.818 - Other symptoms and signs involving the nervous system Status: Acute Assessment and Plan: * Pulmonology recommends BiPAP, 14/5 with a rate of 14, to be used while sleepi ng. * Patient is awaiting formal outpatient polysomnogram. (6) Type 2 diabetes mellitus: Qualifiers: Diabetes mellitus jail insulin use: with salvage determiner use Diabetes mellitus complication status: with hyperglycemia Qualified Code(s): E11.65 - T ype 2 diabetes mellitus with hyperglycemia; Z79.4 - [facility] (current) use of insulin Code(s): E11.9 - Type 2 diabetes mellitus without complications Status: Acute Assessment and Plan: * Well controlled with a recent hemoglobin A1c of 6.1%. * Low-dose Lantus. * Sliding scale insulin, Accu-Cheks, and hypoglycemic protocol. * 10/04 FBS 111 (7) Hypertension: Qualifiers: Hypertension type: essential hypertension Qualified Code(s): I10 - Essential (primary) hypertension Code(s): I10 - Essential (primary) hypertension Status: Acute Assessment and Plan: * Due to soft blood pressure continue to hold antihypertensives hydralazine, and lisinopril but cardiology restarting beta merry for afob (8) Sepsis: Qualifiers: Sepsis type: sepsis due to unspecified organism Sepsis acute organ dysfunction status: without acute organ dysfunction Qualified Code(s): A41.9 - Sepsis, unspecified organism Code(s): A41.9 - Sepsis, unspecified organism Status: Acute Assessment and Plan: * Present on admission and supported by relative hypotension (responsive to IV fluids), fever, and leukocytosis in the setting of C diff colitis. * Resolved (9) Pulmonary hypertension: Code(s): I27.20
--- NOTE | 2019-10-05 12:50 | PM.IMPN ---
Progress Note: A&P Assessment and Plan (1) C. difficile colitis: Code(s): A04.72 - Enterocolitis due to Clostridium difficile, not specified as recurrent Status: Acute Assessment and Plan: Given recent C diff, likely this is a recurrence and there is no need to retest. Fidaxomicin first dose 4 PM.(03/05) 10/04 PM will receive dose 17of 20 (10 days) Plan tapering dose of vancomycin following the 10 day course of fidaxomicin clinically improving each day with less abd pain and better appetite but still leukocytosis and still diarrhea but volume down some (2) Atrial fibrillation with RVR: Code(s): I48.91 - Unspecified atrial fibrillation Status: Acute Assessment and Plan: 10/04 Continue amiodarone IV as atrial fib recurred, probable oral 1-2 days, still has runs of SR with afib 09/29 Added IV metoprolol 09/29 Added IV digoxin 250mcg x 1 09/29 Fluid bolus for hypotension Echo 09/03/19 with LVEF 65-70%, severe pulmonary HTN (60mmHg) continue ASA with high risk bleed with full anticoagulation with colitis (3) End-stage renal disease on hemodialysis: Code(s): N18.6 - End stage renal disease; Z99.2 - Dependence on renal dialysis Status: Acute Assessment and Plan: Dr. Tang consulted for hemodialysis.M,W,F Mild fluid overloaded 10/01 as evidence by physical exam and chest x-ray. Dialysis removed 2 L fluid and will repeat dialysis Friday 10/06 (4) Chronic anemia: Code(s): D64.9 - Anemia, unspecified Status: Acute Assessment and Plan: Hemoglobin and hematocrit are stable on review of previous labs Likely anemia of chronic kidney disease Epogen per renal (5) Suspected sleep apnea: Code(s): R29.818 - Other symptoms and signs involving the nervous system Status: Acute Assessment and Plan: Pulmonology recommends BiPAP, 14/5 with a rate of 14, to be used while sleeping. Patient is awaiting formal outpatient polysomnogram. 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 Low-dose Lantus. Sliding scale insulin, Accu-Cheks, and hypoglycemic protocol. 10/04 FBS 111 (7) Hypertension: Qualifiers: Hypertension type: essential hypertension Qualified Code(s): I10 - Essential (primary) hypertension Code(s): I10 - Essential (primary) hypertension Status: Acute Assessment and Plan: Due to soft blood pressure continue to hold antihypertensives hydralazine, and lisinopril but cardiology restarting beta merry for afob (8) Sepsis: Qualifiers: Sepsis type: sepsis due to unspecified organism Sepsis acute organ dysfunction status: without acute organ dysfunction Qualified Code(s): A41.9 - Sepsis, unspecified organism Code(s): A41.9 - Sepsis, unspecified organism Status: Acute Assessment and Plan: Present on admission and supported by relative hypotension (responsive to IV fluids), fever, and leukocytosis in the setting of C diff colitis. Resolved (9) Pulmonary hypertension: Code(s): I27.20 - Pulmonary hypertension, unspecified Status: Acute Assessment and Plan: per echo (10) Cirrhosis: Code(s): K74.60 - Unspecified cirrhosis of liver Status: Acute Assessment and Plan: As documented on CT Abd/pelvis Mild hypersplenism Chronic with unclear etiology , probable LA[place]ENCE Subjective Date/time seen: 10/05/19 12:50 Interval history: Date of visit 10/04. Follow-up for: C difficile colitis, end-stage re
--- NOTE | 2019-10-05 15:43 | ECG_ITS ---
Measurements Intervals [place] Rate: 66 P: 23 WI: 184 QRS: -18 QRSD: 104 T: 154 QT: 393 QTc: 414 Interpretive Statements SINUS RHYTHM LOW QRS VOLTAGE IN PRECORDIAL LEADS ANTEROSEPTAL INFARCT, AGE INDETERMINATE ST-T WAVE ABNORMALITY IN LATERAL LEADS- CONSIDER ISCHEMIA BASELINE ARTIFACT- III ABNORMAL ECG Electronically Signed On 10-06-2019 8:03:11 CDT by Jered Vee D.O.
--- NOTE | 2019-10-05 16:14 | PCRCNOTE ---
Window of time for administration has passed. See next scheduled administration.
[2019-10-05 16:24] LABS: Glucose Point of Care 122 (65-105)
[2019-10-05] MEDS: SIMVASTATIN 20 MG TABLET 40 MG PO (20:07)
[2019-10-05 20:37] LABS: Glucose Point of Care 141 (65-105)
[2019-10-06] VITALS (27 sets, daily range): BP systolic 66–111; BP diastolic 33–46; PULSE 66–141; RESP 18–34; TEMP 36.4–36.7; O2SAT 93–100; BMI 11.0
[2019-10-06] MEDS: ALBUTEROL SULFATE NEB 2.5 MG/0.5 ML INH 5 MG INHALATION ×4 (01:02→20:41)
[2019-10-06] MEDS: IPRATROPIUM BR 0.02% INH SOLN 0.5 MG/2.5 ML VIAL INHALATION ×4 (01:03→20:41)
[2019-10-06 04:35] LABS: Hemoglobin 8.9 g/dL (12.0-15.0); Mean Corpuscular HGB Conc 29.7 g/dl (32-36); Mean Corpuscular Hemoglobin 27.6 pg (26-34); Mean Corpuscular Volume 93.2 fl (80-100); Mean Platelet Volume 11.5 fl (7.4-10.4); Platelet Count Result 104 k/mm3 (150-375); Red Blood Count 3.22 M/mm3 (4.2-5.4); Red Cell Distribution Width 18.6 % (11.5-14.5); White Blood Count 19.6 K/mm3 (4.5-10.0)
[2019-10-06 04:51] LABS: Blood Urea Nitrogen 34 mg/dL (7-17); Calcium 7.7 mg/dL (8.4-10.2); Carbon Dioxide 28 mmol/L (22-30); Chloride 99 mmol/L (98-107); Estimated CRCL calculation 14 ml/min; Estimated Glomerular Filt Rate 10; Glucose 108 mg/dL (65-105); Potassium 3.6 mmol/L (3.4-5.0); Sodium 133 mmol/L (137-145)
[2019-10-06 05:18] LABS: Band Neutrophils Percent 7 % (0-6); Lymphocytes Absolute Manual 1.37 K/mm3 (1.1-4.5); Monocytes Absolute Manual 0.98 K/mm3 (0.1-0.90); Monocytes Percent Manual 5 % (3-9); Neutrophils Absolute Manual 17.24 K/mm3 (1.7-7.2); Neutrophils Percent Manual 81 % (46-73); Total Cells Counted 100
[2019-10-06 05:19] LABS: Macrocytosis 1+ (NORMAL); Ovalocytes 1+ (NORMAL)
[2019-10-06] MEDS: ALPRAZOLAM 0.5 MG TABLET PO ×2 (06:37→20:05)
[2019-10-06] MEDS: ACETAMINOPHEN 325 MG TABLET 650 MG PO ×3 (06:37→20:06)
--- NOTE | 2019-10-06 08:43 | PM.PNCARD ---
Progress Note: A&P Assessment and Plan (1) Atrial fibrillation with RVR: Code(s): I48.91 - Unspecified atrial fibrillation Status: Acute Assessment and Plan: New onset atrial fibrillation with RVR, continues to have PAF RVR on IV amiodarone but generally brief and well-tolerated She has diffuse colitis on CT scan. At this time, she would not be an ideal candidate for anticoagulation. However, once she is clinically stable, anticoagulation should be reconsidered. Will try switching IV amio to po 400 mg BID.. (2) Hypotension: Code(s): I95.9 - Hypotension, unspecified Status: Acute Assessment and Plan: Soft BP at times, today significantly lower after trying some Phy. Tx. May be volume-depleted 2nd diarrhea and deconditioned; will see how she does after IV fluid bolus. (3) End-stage renal disease on hemodialysis: Code(s): N18.6 - End stage renal disease; Z99.2 - Dependence on renal dialysis Status: Acute Assessment and Plan: [facility] AP[employer] with hemodialysis MWF. Management by Dr. Gonzalez. (4) C. difficile colitis: Code(s): A04.72 - Enterocolitis due to Clostridium difficile, not specified as recurrent Status: Acute Assessment and Plan: Management as per primary team (5) Diastolic CHF: Code(s): I50.30 - Unspecified diastolic (congestive) heart failure Status: Acute Assessment and Plan: Volume overload with CHF. I's and O's: 1800 cc's negative Monday after HD Currently off her usual lisinopril, hydralazine with soft BP at times. Cont dialysis. Subjective Date/time seen: 10/06/19 08:43 Interval history: Follow-up visit for atrial fib/RVR occurring in a paroxysmal fashion in the setting of C difficile colitis. ESRD. Visit 10/05/2019: Started on metoprolol 25 mg BID 10/04/2019 a.m. Patient currently has intravenous amiodarone running. Still having PAF with RVR HR 120-130's at times, up to 1.5 hours, asymptomatic. C/o severe pain in rectum which pt thinks is 2nd to rectal tube. On O2, 2-3 liters w/ good O2 sat. CPAP at night. Had HD Monday. Cont IV amio. DATE OF SERVICE: 10/06/2019 Still w/ PAF RVR, usually lasting 1-1.5 hours w/ HR in 120's, no sx. Using CPAP at night. Worked hard to stand at bedside w/ Ph Tx today, went back into a fib RVR, HR 150's and SBP decreased to 70's. Now in bed, SBP 80's, getting IV bolus. Pt says she is weak but not lightheaded, less abdominal pain, no CP. Review of Systems Constitutional: Constitutional: Reports fatigue and Reports weakness ENT: Denies nasal congestion Cardiovascular: Cardiovascular: Denies chest pain, Denies leg edema, Denies lightheadedness and Denies palpitations Respiratory: Respiratory: Denies cough and Denies dyspnea Gastrointestinal: Gastrointestinal: Reports abdominal pain (Decreased.) and Reports diarrhea Genitourinary: Genitourinary: Denies hematuria Musculoskeletal: Musculoskeletal: Denies back pain Integumentary/Breasts: Skin/Breast: Reports dry skin Neurologic: Denies confusion Psychiatric: Psychiatric: Denies confusion Exam Const: General: no acute distress Other: Appears ill but not in distress, eyes closed but answers questions. HENMT: Mouth: Yes moist mucous membranes Eyes: EOM: EOMs intact bilaterally Neck: Neck: supple Resp: Effort & Inspection: normal respiratory effort Auscultation: diminished lung sounds Cardio: Rate: regular rate Rhythm: regular rhythm Heart sounds: no murmurs GI: Auscultation: abnormal bowel sounds (decreased BS but soft and nontender) Skin: General skin exam: erythema (Slightly pink skin near IV right forearm. ) Lesions: lesion noted (Chronic venous stasis changes legs) Neuro: Cognition (Neuro): normal cognition Speech: normal speech Extrem: Right lower extremity
[2019-10-06] MEDS: TOLNAFTATE 1% POWDER 45 GM BTL 1 APPLIC TOPICAL ×2 (09:29→22:12)
[2019-10-06] MEDS: FIDAXOMICIN 200 MG TABLET PO ×2 (09:30→20:05)
[2019-10-06] MEDS: SACCHAROMYCES BOULARDII 250 MG CAPSULE PO ×2 (09:30→17:13)
[2019-10-06] MEDS: ASPIRIN 81 MG ENTERIC TABLET PO (09:30)
[2019-10-06] MEDS: FAMOTIDINE 20 MG TABLET PO ×2 (09:30→20:06)
[2019-10-06] MEDS: CHOLESTYRAMINE LIGHT 4 GM POWD.PACK PO ×2 (09:30→17:13)
[2019-10-06 09:41] LABS: Glucose Point of Care 130 (65-105)
[2019-10-06] MEDS: SODIUM CHLORIDE 0.9% IV 500 ML IV CONT ×2 (09:47→16:02)
--- NOTE | 2019-10-06 10:41 | PM.PNNEP ---
Progress Note: A&P Assessment and Plan (1) End-stage renal disease on hemodialysis: Code(s): N18.6 - End stage renal disease; Z99.2 - Dependence on renal dialysis Status: Acute Assessment and Plan: Aurelia has end-stage renal disease. She will get her next dialysis tomorrow. (2) C. difficile colitis: Code(s): A04.72 - Enterocolitis due to Clostridium difficile, not specified as recurrent Status: Acute Assessment and Plan: The patient has copious amounts of diarrhea. Belly pain is just about gone on dificid (3) Anemia: Qualifiers: Anemia type: iron deficiency Iron deficiency anemia type: unspecified iron deficiency Qualified Code(s): D50.9 - Iron deficiency anemia, unspecified Code(s): D64.9 - Anemia, unspecified Status: Chronic Assessment and Plan: Hemoglobin is up and down and today is 8.9 She is getting Epogen per dialysis. (4) Suspected sleep apnea: Code(s): R29.818 - Other symptoms and signs involving the nervous system Status: Acute Assessment and Plan: This is going to be evaluated as an outpatient (5) Type 2 diabetes mellitus: Qualifiers: Diabetes mellitus custodial insulin use: with tool and die manager use Diabetes mellitus complication status: with hyperglycemia Qualified Code(s): E11.65 - Type 2 diabetes mellitus with hyperglycemia; Z79.4 - USP (current) use of insulin Code(s): E11.9 - Type 2 diabetes mellitus without complications Status: Acute Assessment and Plan: Patient is on Accu-Cheks and sliding-scale insulin. (6) Sepsis: Qualifiers: Sepsis type: sepsis due to unspecified organism Sepsis acute organ dysfunction status: without acute organ dysfunction Qualified Code(s): A41.9 - Sepsis, unspecified organism Code(s): A41.9 - Sepsis, unspecified organism Status: Acute Assessment and Plan: White count is up a bit. She had a flat plate of the abdomen this morning. This was okay. (7) Hypertension: Qualifiers: Hypertension type: essential hypertension Qualified Code(s): I10 - Essential (primary) hypertension Code(s): I10 - Essential (primary) hypertension Status: Acute Assessment and Plan: Blood pressure is better. Subjective Date/time seen: 10/06/19 10:41 Interval history: Patient is still having diarrhea. FEES is still in. Belly pain is just about gone. Review of Systems Cardiovascular: Cardiovascular: Reports no additional cardiovascular complaints Respiratory: Respiratory: Reports no additional respiratory complaints Gastrointestinal: Gastrointestinal: Reports no additional gastrointestinal complaints Genitourinary: Genitourinary: Reports no additional female genitourinary complaints Exam Narrative: Exam Narrative: Well developed well-nourished in no acute distress Lungs clear bilaterally Heart irregular without rub Abdomen bowel sounds positive soft less tender. Extremities no edema Skin no rash Objective Data Vital Signs Vital Signs: Vital Signs - 24 hr 10/05/19 12:00 10/05/19 14:00 10/05/19 16:00 Temperature 36.8 C 36.8 C Pulse Rate 74 74 67 Respiratory Rate 30 H 28 H Blood Pressure 126/48 L 127/45 L Pulse Oximetry 97 98 10/05/19 18:26 10/05/19 19:25 10/05/19 19:35 Temperature Pulse Rate 77 68 68 Respiratory Rate 18 18 Blood Pressure Pulse Oximetry 10/05/19 19:39 10/05/19 19:41 10/05/19 20:00 Temperature 36.7 C Pulse Rate 69 69 Respiratory Rate 22 H 22 H Blood Pressure 90/59 L Pulse Oximetry 95 96 96 10/05/19 20:07 10/05/19 20:28 10/05/19 22:00 Temperature Pulse Rate 69 68 Respiratory Rate Blood Pressure 107/40 L Pulse Oximetry 10/05/19 23:28 10/05/19 23:44 10/06/19 00:00 Temperature 36.6 C Pulse Rate 81 73 135 H Respiratory Rate 24 H 20 20 Blood Pressure 136/54 L Pulse Oximetry 93 96 96 04
[2019-10-06] MEDS: AMIODARONE HCL 200 MG TABLET 400 MG PO (11:07)
[2019-10-06 11:18] LABS: Glucose Point of Care 133 (65-105)
--- NOTE | 2019-10-06 14:49 | P.PNIM_ITS ---
Progress Note: A&P Assessment and Plan (1) C. difficile colitis: Code(s): A04.72 - Enterocolitis due to Clostridium difficile, not specified as recurrent Status: Acute Assessment and Plan: * Given recent C diff, likely this is a recurrence and there is no need to retest. * Fidaxomicin first dose 4/3 PM.(04/04) * 412 PM will receive dose 19 of 20 (10 days) * Plan tapering dose of vancomycin following the 10 day course of fidaxomicin * clinically improving each day with less abd pain and better appetite but still leukocytosis and still diarrhea * KUB today no colonic dilatation (2) Atrial fibrillation with RVR: Code(s): I48.91 - Unspecified atrial fibrillation Status: Acute Assessment and Plan: * 10/05 Cardiology changed to po amiodarone today * 09/29 Added IV metoprolol * 09/29 Added IV digoxin 250mcg x 1 * 09/29 Fluid bolus for hypotension * Echo 09/03/19 with LVEF 65-70%, severe pulmonary HTN (60mmHg) * continue ASA with high risk bleed with full anticoagulation with colitis * Bp low this am after up with pt for first time. gave 500 ml fluid bolus and im proved. metoprolol held (3) End-stage renal disease on hemodialysis: Code(s): N18.6 - End stage renal disease; Z99.2 - Dependence on renal dialysis Status: Acute Assessment and Plan: * Dr. Tang consulted for hemodialysis.M,W,F * Mild fluid overloaded 10/01 as evidence by physical exam and chest x-ray. * Dialysis removed 2 L fluid and will repeat dialysis Friday 10/06 (4) Chronic anemia: Code(s): D64.9 - Anemia, unspecified Status: Acute Assessment and Plan: * Hemoglobin and hematocrit are stable on review of previous labs * Likely anemia of chronic kidney disease * Epogen per renal * hgb stable 8.9 10/05 (5) Suspected sleep apnea: Code(s): R29.818 - Other symptoms and signs involving the nervous system Status: Acute Assessment and Plan: * Pulmonology recommends BiPAP, 14/5 with a rate of 14, to be used while sleeping. * Patient is awaiting formal outpatient polysomnogram. (6) Type 2 diabetes mellitus: Qualifiers: Diabetes mellitus residential insulin use: with residential use Diabetes mellitus complication status: with hyperglycemia Qualified Code(s): E11.65 - Type 2 diabetes mellitus with hyperglycemia; Z79.4 - half-way (current) use of insulin Code(s): E11.9 - Type 2 diabetes mellitus without complications Status: Acute Assessment and Plan: * Well controlled with a recent hemoglobin A1c of 6.1%. * Low-dose Lantus. * Sliding scale insulin, Accu-Cheks, and hypoglycemic protocol. * 10/04 FBS 108 (7) Hypertension: Qualifiers: Hypertension type: essential hypertension Qualified Code(s): I10 - Essential (primary) hypertension Code(s): I10 - Essential (primary) hypertension Status: Acute Assessment and Plan: * Due to soft blood pressure continue to hold antihypertensives hydralazine, and lisinopril but cardiology restarting beta merry for afib (8) Sepsis: Qualifiers: Sepsis type: sepsis due to unspecified organism Sepsis acute organ dysfunction status: without acute organ dysfunction Qualified Code(s): A41.9 - Sepsis, unspecified organism Code(s): A41.9 - Sepsis, unspecified organism Status: Acute Assessment and Plan: * Present on admission and supported by relative hypotension (responsive to IV fluids), fever, and leukocytosis in the setting of C diff colitis.
--- NOTE | 2019-10-06 14:49 | PM.IMPN ---
Progress Note: A&P Assessment and Plan (1) C. difficile colitis: Code(s): A04.72 - Enterocolitis due to Clostridium difficile, not specified as recurrent Status: Acute Assessment and Plan: Given recent C diff, likely this is a recurrence and there is no need to retest. Fidaxomicin first dose 4/ PM.(04/04) 10/05 PM will receive dose 19 of 20 (10 days) Plan tapering dose of vancomycin following the 10 day course of fidaxomicin clinically improving each day with less abd pain and better appetite but still leukocytosis and still diarrhea KUB today no colonic dilatation (2) Atrial fibrillation with RVR: Code(s): I48.91 - Unspecified atrial fibrillation Status: Acute Assessment and Plan: 10/05 Cardiology changed to po amiodarone today 09/29 Added IV metoprolol 09/29 Added IV digoxin 250mcg x 1 09/29 Fluid bolus for hypotension Echo 09/03/19 with LVEF 65-70%, severe pulmonary HTN (60mmHg) continue ASA with high risk bleed with full anticoagulation with colitis Bp low this am after up with pt for first time. gave 500 ml fluid bolus and improved. metoprolol held (3) End-stage renal disease on hemodialysis: Code(s): N18.6 - End stage renal disease; Z99.2 - Dependence on renal dialysis Status: Acute Assessment and Plan: Dr. Tang consulted for hemodialysis.M,W,F Mild fluid overloaded 10/01 as evidence by physical exam and chest x-ray. Dialysis removed 2 L fluid and will repeat dialysis Friday 10/06 (4) Chronic anemia: Code(s): D64.9 - Anemia, unspecified Status: Acute Assessment and Plan: Hemoglobin and hematocrit are stable on review of previous labs Likely anemia of chronic kidney disease Epogen per renal hgb stable 8.9 10/05 (5) Suspected sleep apnea: Code(s): R29.818 - Other symptoms and signs involving the nervous system Status: Acute Assessment and Plan: Pulmonology recommends BiPAP, 14/5 with a rate of 14, to be used while sleeping. Patient is awaiting formal outpatient polysomnogram. (6) Type 2 diabetes mellitus: Qualifiers: Diabetes mellitus [facility] insulin use: with termite technician use Diabetes mellitus complication status: with hyperglycemia Qualified Code(s): E11.65 - Type 2 diabetes mellitus with hyperglycemia; Z79.4 - terminal operations supervisor (current) use of insulin Code(s): E11.9 - Type 2 diabetes mellitus without complications Status: Acute Assessment and Plan: Well controlled with a recent hemoglobin A1c of 6.1%. Low-dose Lantus. Sliding scale insulin, Accu-Cheks, and hypoglycemic protocol. 10/04 FBS 108 (7) Hypertension: Qualifiers: Hypertension type: essential hypertension Qualified Code(s): I10 - Essential (primary) hypertension Code(s): I10 - Essential (primary) hypertension Status: Acute Assessment and Plan: Due to soft blood pressure continue to hold antihypertensives hydralazine, and lisinopril but cardiology restarting beta merry for afib (8) Sepsis: Qualifiers: Sepsis type: sepsis due to unspecified organism Sepsis acute organ dysfunction status: without acute organ dysfunction Qualified Code(s): A41.9 - Sepsis, unspecified organism Code(s): A41.9 - Sepsis, unspecified organism Status: Acute Assessment and Plan: Present on admission and supported by relative hypotension (responsive to IV fluids), fever, and leukocytosis in the setting of C diff colitis. Resolved (9) Pulmonary hypertension: Code(s): I27.20 - Pulmonary hypertension, unspecified Status: Acute Assessment and Plan: per echo (10) Cirrhosis: Code(s): K74.60 - Unspecified cirrhosis of liver Status: Acute Assessment and Plan: As documented on CT Abd/pelvis Mild hypersplenism Chronic with unclear etiology , probable [place] Subjective Date/time seen: 10/06/19 14:49 Interval
[2019-10-06] MEDS: AMIODARONE 150 MG/D5W 100 ML 150 MG/100 ML BAG 600 MG IV CONT (15:45)
[2019-10-06] MEDS: AMIODARONE 360 MG/D5W 200 ML 360 MG/200 ML BAG 33.3 MG IV CONT (15:51)
[2019-10-06 17:23] LABS: Glucose Point of Care 121 (65-105)
[2019-10-06 20:04] LABS: Glucose Point of Care 129 (65-105)
[2019-10-06] MEDS: METOPROLOL TARTRATE 25 MG TABLET PO (20:05)
[2019-10-06] MEDS: SIMVASTATIN 20 MG TABLET 40 MG PO (20:06)
[2019-10-07] VITALS (40 sets, daily range): BP systolic 86–118; BP diastolic 31–58; PULSE 58–132; RESP 18–30; TEMP 36.3–37.2; O2SAT 92–99
[2019-10-07] MEDS: ALBUTEROL SULFATE NEB 2.5 MG/0.5 ML INH 5 MG INHALATION ×3 (02:10→20:13)
[2019-10-07] MEDS: IPRATROPIUM BR 0.02% INH SOLN 0.5 MG/2.5 ML VIAL INHALATION ×3 (02:11→20:13)
[2019-10-07 05:56] LABS: Basophils Absolute Auto 0.1 K/mm3 (0.0-0.1); Basophils Percent Auto 0.3 % (0.2-1.2); Blood Urea Nitrogen 44 mg/dL (7-17); Calcium 7.9 mg/dL (8.4-10.2); Carbon Dioxide 27 mmol/L (22-30); Chloride 99 mmol/L (98-107); Eosinophils Absolute Auto 0.2 K/mm3 (0-0.3); Estimated CRCL calculation 12 ml/min; Estimated Glomerular Filt Rate 8; Glucose 99 mg/dL (65-105); Hematocrit 28.7 % (37.0-47.0); Hemoglobin 8.8 g/dL (12.0-15.0); Immature Granulocyte Absolute 0.28 K/mm3 (0.00-0.031); Immature Granulocyte Percent A 1.4 % (0-0.5); Lymphocytes Absolute Auto 1.95 K/mm3 (0.9-3.2); Lymphocytes Percent Auto 9.4 % (18.3-44.2); Mean Corpuscular HGB Conc 30.7 g/dl (32-36); Mean Corpuscular Hemoglobin 28.5 pg (26-34); Mean Corpuscular Volume 92.9 fl (80-100); Mean Platelet Volume 10.7 fl (7.4-10.4); Monocytes Absolute Auto 1.1 K/mm3 (0.1-0.6); Monocytes Percent Auto 5.4 % (2.6-8.5); Neutrophils Absolute Auto 17.1 K/mm3 (1.3-6.7); Neutrophils Percent Auto 82.5 % (45.5-73.1); Nucleated Red Blood Cells Perc 0.1 % (0.0-0.2); Phosphorus 3.5 mg/dL (2.5-4.5); Platelet Count Result 114 k/mm3 (150-375); Potassium 3.6 mmol/L (3.4-5.0); Red Blood Count 3.09 M/mm3 (4.2-5.4); Red Cell Distribution Width 18.9 % (11.5-14.5); Sodium 132 mmol/L (137-145); White Blood Count 20.7 K/mm3 (4.5-10.0)
[2019-10-07] MEDS: FAMOTIDINE 20 MG TABLET PO ×2 (08:09→19:57)
[2019-10-07] MEDS: METOPROLOL TARTRATE 25 MG TABLET PO ×2 (08:09→20:01)
[2019-10-07] MEDS: FIDAXOMICIN 200 MG TABLET PO ×2 (08:09→19:58)
[2019-10-07] MEDS: TOLNAFTATE 1% POWDER 45 GM BTL 1 APPLIC TOPICAL ×2 (08:10→20:01)
[2019-10-07] MEDS: SACCHAROMYCES BOULARDII 250 MG CAPSULE PO ×2 (08:10→18:26)
[2019-10-07] MEDS: ASPIRIN 81 MG ENTERIC TABLET PO (08:10)
[2019-10-07 08:38] LABS: Glucose Point of Care 108 (65-105)
[2019-10-07] MEDS: HEPARIN SODIUM 1,000 UNITS/ML VIAL 1000 UNITS IV PUSH (08:50)
--- NOTE | 2019-10-07 08:50 | PCOTNOTE ---
Attempted to see Patient for OT treatment session at this time, Patient was out of the room, per RN Patient is in dialysis. Will try back at a later time.
[2019-10-07] MEDS: HEPARIN SODIUM 1,000 UNITS/ML VIAL 500 UNITS IV PUSH ×4 (08:54→11:55)
[2019-10-07] MEDS: ALBUMIN HUMAN 25% 12.5 GM/50ML 50 ML 100 GM ×2 (09:43→11:20)
[2019-10-07] MEDS: EPOETIN ALFA 10,000 UNITS/ML VIAL 10000 UNITS IV PUSH (10:34)
[2019-10-07] MEDS: AMIODARONE 360 MG/D5W 200 ML 360 MG/200 ML BAG 33.3 MG IV CONT ×3 (10:41→19:59)
--- NOTE | 2019-10-07 10:44 | PCPTNOTE ---
Attempted to see patient for PT, however unable to see patient due to patient being in dialysis.
--- NOTE | 2019-10-07 12:02 | P.PNNP_ITS ---
Progress Note: A&P Assessment and Plan (1) Dependence on renal dialysis: Code(s): Z99.2 - Dependence on renal dialysis Status: Acute Assessment and Plan: * JESSICA/ARF on last hospitalization [due to IV diuretics, pre-renal factors, and infection (C. diff colitis + UTI)] * unfortunately, remains dialysis dependent at this time * unclear if recovery will occur but had baseline CKD stage IV at baseline (creatinine ~ 1.8 - 2.2 from HTN/DM/vascular dz) * follow trend of UOP and creatinine on the possibility of renal recovery (2) C. difficile colitis: Code(s): A04.72 - Enterocolitis due to Clostridium difficile, not specified as recurrent Status: Acute Assessment and Plan: * clinically improvement noted: - less abominal pain - better appetite * However, still having diarrhea and WBC remains elevated * repeat CT of abdomen/pelvis today (3) Anemia: Qualifiers: Anemia type: iron deficiency Iron deficiency anemia type: unspecified iron deficiency Qualified Code(s): D50.9 - Iron deficiency anemia, unspecified Code(s): D64.9 - Anemia, unspecified Status: Chronic Assessment and Plan: * due to #1, chronic infection/inflammation, and possible SADAF resistance * follow trend of H/H * Epogen with HD (4) Type 2 diabetes mellitus: Qualifiers: Diabetes mellitus complication status: with hyperglycemia Diabetes mellitus extermination inspector insulin use: with extermination inspector use Qualified Code(s): E11.65 - Type 2 diabetes mellitus with hyperglycemia; Z79.4 - petroleum terminal plant operator (current) use of insulin Code(s): E11.9 - Type 2 diabetes mellitus without complications Status: Acute Assessment and Plan: * follow accuchecks * on SSI (5) Hypertension: Qualifiers: Hypertension type: essential hypertension Qualified Code(s): I10 - Essential (primary) hypertension Code(s): I10 - Essential (primary) hypertension Status: Acute Assessment and Plan: * fluctuates in general * relative hypotension makes fluid removal with HD difficult * follow trend of hemodynamics Discussed case with Dr. Griffith. Will continue to follow. Subjective Date/time seen: 10/07/19 12:02 Chart/Interim reviewed since admission -- tolerating dialysis at the time of my visit (seen on HD at ~ 11:50AM); stated she was short of breath earlier so attempting to be more aggressive with flud removal/ultrafiltration but her blood pressure is not tolerating this intervention very well. Exam Narrative: Exam Narrative: General: WD/WN female in NAD Heart: normal S1 and S2; no rub Lungs: coarse with decreased breath sounds Abdomen: soft, nondistended, less TTP; positive bowel sounds Extremities: no cyanosis or clubbing; trace edema Skin: warm and dry Objective Data Vital Signs Vital Signs: Vital Signs Temp Pulse Resp BP Pulse Ox 10/07/19 12:00 122 H 86/50 L 10/07/19 11:45 109 H 98/49 L 10/07/19 11:30 126 H 87/43 L 10/07/19 11:15 82 86/45 L 10/07/19 11:00 119 H 107/47 L 10/07/19 10:46 132 H 87/35 L 10/07/19 10:39 75 98/47 L 10/07/19 10:30 72 86/47 L 10/07/19 10:15 75 99/41 L 10/07/19 10:00 72 89/32 L 10/07/19 09:45 68 89/42 L 10/07/19 09:30 81 89/39 L 10/07/19 09:08 37.2 C 75 30 H 117/43 L 96 10/07/19 09:00 81 113
--- NOTE | 2019-10-07 12:02 | PM.PNNEP ---
Progress Note: A&P Assessment and Plan (1) Dependence on renal dialysis: Code(s): Z99.2 - Dependence on renal dialysis Status: Acute Assessment and Plan: JESSICA/ARF on last hospitalization [due to IV diuretics, pre-renal factors, and infection (C. diff colitis + UTI)] unfortunately, remains dialysis dependent at this time unclear if recovery will occur but had baseline CKD stage IV at baseline (creatinine ~ 1.8 - 2.2 from HTN/DM/vascular dz) follow trend of UOP and creatinine on the possibility of renal recovery (2) C. difficile colitis: Code(s): A04.72 - Enterocolitis due to Clostridium difficile, not specified as recurrent Status: Acute Assessment and Plan: clinically improvement noted: - less abominal pain - better appetite However, still having diarrhea and WBC remains elevated repeat CT of abdomen/pelvis today (3) Anemia: Qualifiers: Anemia type: iron deficiency Iron deficiency anemia type: unspecified iron deficiency Qualified Code(s): D50.9 - Iron deficiency anemia, unspecified Code(s): D64.9 - Anemia, unspecified Status: Chronic Assessment and Plan: due to #1, chronic infection/inflammation, and possible SADAF resistance follow trend of H/H Epogen with HD (4) Type 2 diabetes mellitus: Qualifiers: Diabetes mellitus complication status: with hyperglycemia Diabetes mellitus exterminator helper insulin use: with custodial use Qualified Code(s): E11.65 - Type 2 diabetes mellitus with hyperglycemia; Z79.4 - intermediate (current) use of insulin Code(s): E11.9 - Type 2 diabetes mellitus without complications Status: Acute Assessment and Plan: follow accuchecks on SSI (5) Hypertension: Qualifiers: Hypertension type: essential hypertension Qualified Code(s): I10 - Essential (primary) hypertension Code(s): I10 - Essential (primary) hypertension Status: Acute Assessment and Plan: fluctuates in general relative hypotension makes fluid removal with HD difficult follow trend of hemodynamics Discussed case with Dr. Griffith. Will continue to follow. Subjective Date/time seen: 10/07/19 12:02 Chart/Interim reviewed since admission -- tolerating dialysis at the time of my visit (seen on HD at ~ 11:50AM); stated she was short of breath earlier so attempting to be more aggressive with flud removal/ultrafiltration but her blood pressure is not tolerating this intervention very well. Exam Narrative: Exam Narrative: General: WD/WN female in NAD Heart: normal S1 and S2; no rub Lungs: coarse with decreased breath sounds Abdomen: soft, nondistended, less TTP; positive bowel sounds Extremities: no cyanosis or clubbing; trace edema Skin: warm and dry Objective Data Vital Signs Vital Signs: Vital Signs Temp Pulse Resp BP Pulse Ox 10/07/19 12:00 122 H 86/50 L 10/07/19 11:45 109 H 98/49 L 10/07/19 11:30 126 H 87/43 L 10/07/19 11:15 82 86/45 L 10/07/19 11:00 119 H 107/47 L 10/07/19 10:46 132 H 87/35 L 10/07/19 10:39 75 98/47 L 10/07/19 10:30 72 86/47 L 10/07/19 10:15 75 99/41 L 10/07/19 10:00 72 89/32 L 10/07/19 09:45 68 89/42 L 10/07/19 09:30 81 89/39 L 10/07/19 09:08 37.2 C 75 30 H 117/43 L 96 10/07/19 09:00 81 113/31 L 10/07/19 08:54 86 115/39 L 10/07/19 08:42 37.2 C 75 30 H 118/44 L 10/07/19 08:09 75 10/07/19 08:00 74 10/07/19 05:37 78 10/07/19 04:00 36.7 C 63 22 H 105/40 L 92 10/07/19 02:33 91 26 H 95 10/07/19 02:25 88 18 10/07/19 02:11 82 18 10/07/19 01:57 68 10/07/19 00:00 36.6 C 66 30 H 102/38 L 94 10/06/19 22:00 72 10/06/19 21:45 88 22 H 95 10/06/19 20:53 74 18 10/06/19 20:45 76 18 10/06/19 20:05 86 10/06/19 20:00 36.7 C 69 18 99/37 L 96 10/06/19 18:01 76 10/06/19
--- NOTE | 2019-10-07 12:06 | WPDINFPN2 ---
Progress Note: A&P Assessment and Plan (1) C. difficile colitis: Code(s): A04.72 - Enterocolitis due to Clostridium difficile, not specified as recurrent Status: Acute Assessment and Plan: 1. Relapsed C diff infection, rising WBC but otherwise without complication. Stool in bag: brown and no form 2. Cirrhosis 3. CRF on HD 4. Dyspnea, possibly related to her chronic renal failure. Doubt HCAP REC Fidaxomicin # 11, stop after today. Begin tid Vanc in AM x 2 weeks. Nutritional support underway Subjective Date/time seen: 10/07/19 12:06 Objective Data Vital Signs Vital Signs: Vital Signs - 24 hr 10/06/19 14:18 10/06/19 14:26 10/06/19 15:05 Temperature Pulse Rate 77 78 70 Respiratory Rate 18 18 Blood Pressure Pulse Oximetry 10/06/19 15:44 10/06/19 16:00 10/06/19 17:21 Temperature 36.6 C Pulse Rate 141 H 117 H Respiratory Rate 34 H Blood Pressure 66/46 L 91/33 L Pulse Oximetry 98 10/06/19 18:01 10/06/19 20:00 10/06/19 20:05 Temperature 36.7 C Pulse Rate 76 69 86 Respiratory Rate 18 Blood Pressure 99/37 L Pulse Oximetry 96 10/06/19 20:45 10/06/19 20:53 10/06/19 21:45 Temperature Pulse Rate 76 74 88 Respiratory Rate 18 18 22 H Blood Pressure Pulse Oximetry 95 10/06/19 22:00 10/07/19 00:00 10/07/19 01:57 Temperature 36.6 C Pulse Rate 72 66 68 Respiratory Rate 30 H Blood Pressure 102/38 L Pulse Oximetry 94 10/07/19 02:11 10/07/19 02:25 10/07/19 02:33 Temperature Pulse Rate 82 88 91 Respiratory Rate 18 18 26 H Blood Pressure Pulse Oximetry 95 10/07/19 04:00 10/07/19 05:37 10/07/19 08:00 Temperature 36.7 C Pulse Rate 63 78 74 Respiratory Rate 22 H Blood Pressure 105/40 L Pulse Oximetry 92 10/07/19 08:09 10/07/19 08:42 10/07/19 08:54 Temperature 37.2 C Pulse Rate 75 75 86 Respiratory Rate 30 H Blood Pressure 118/44 L 115/39 L Pulse Oximetry 10/07/19 09:00 10/07/19 09:08 10/07/19 09:30 Temperature 37.2 C Pulse Rate 81 75 81 Respiratory Rate 30 H Blood Pressure 113/31 L 117/43 L 89/39 L Pulse Oximetry 96 10/07/19 09:45 10/07/19 10:00 10/07/19 10:15 Temperature Pulse Rate 68 72 75 Respiratory Rate Blood Pressure 89/42 L 89/32 L 99/41 L Pulse Oximetry 10/07/19 10:30 10/07/19 10:39 10/07/19 10:46 Temperature Pulse Rate 72 75 132 H Respiratory Rate Blood Pressure 86/47 L 98/47 L 87/35 L Pulse Oximetry 10/07/19 11:00 10/07/19 11:15 10/07/19 11:30 Temperature Pulse Rate 119 H 82 126 H Respiratory Rate Blood Pressure 107/47 L 86/45 L 87/43 L Pulse Oximetry 10/07/19 11:45 10/07/19 12:00 Temperature Pulse Rate 109 H 122 H Respiratory Rate Blood Pressure 98/49 L 86/50 L Pulse Oximetry Intake/Output Intake/Output: Intake & Output 10/04/19 10/05/19 10/06/19 10/07/19 23:59 23:59 23:59 23:59 Intake Total 467 780 6980 200 Output Total 2610 350 400 300 Balance -2121 495 5030 -100 Meds/Results Medications: Active Medications Generic Name Dose Route Start Last Admin Trade Name Freq PRN Reason Stop Dose Admin Acetaminophen 650 mg 09/30/19 01:35 10/06/19 20:06 Tylenol Tablet PO 650 mg Q4H PRN Administration Mild Pain (1-3) or Fever Albuterol 5 mg 10/03/19 14:00 10/07/19 08:42 Albuterol Sulf Neb 2.5mg/0.5ml INHALATION Not Given Q6HRT DEJON Alprazolam 0.5 mg 09/27/19 21:21 10/06/19 20:05 Xanax PO 0.5 mg TID PRN Administration Anxiety Amiodarone HCl 400 mg 10/06/19 09:50 10/06/19 11:07 Pacerone PO 400 mg BID DEJON Administration Aspirin 81 mg 09/28/19 09:00 10/07/19 08:10 Aspirin Ec PO 81 mg DAILY DEJON Administration Cholestyramine Resin 4 gm 09/30/19 21:00 10/06/19 17:13 Questran Light Packet PO 4 gm BID@1000,1800 DEJON Administration Dextrose 12.5 gm 09/27/19 21:09 Dextrose 50% Syringe IV PUSH PRN PRN Hypoglycemia Pro
--- NOTE | 2019-10-07 12:46 | PM.PNCARD ---
Progress Note: A&P Assessment and Plan (1) Atrial fibrillation with RVR: Code(s): I48.91 - Unspecified atrial fibrillation Status: Acute Assessment and Plan: New onset atrial fibrillation with RVR, paroxysmal thus far. Continue IV amiodarone for now. Oral metoprolol as BP allows. She has diffuse colitis on CT scan. Currently, not be an ideal candidate for anticoagulation. However, once she is clinically stable, anticoagulation should be reconsidered. Transition to oral amiodarone when patient is clinically stabilized. (2) Hypotension: Code(s): I95.9 - Hypotension, unspecified Status: Acute Assessment and Plan: Per primary service. Avoid intravascular volume depletion. Concern regarding sepsis. Patient was hypotensive prior to reverting back to atrial fibrillation with RVR. May be volume-depleted 2nd diarrhea/nutritional status. 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 Management by Dr. Gonzalez. (4) C. difficile colitis: Code(s): A04.72 - Enterocolitis due to Clostridium difficile, not specified as recurrent Status: Acute Assessment and Plan: Management as per primary team And Infectious Disease. (5) Diastolic CHF: Code(s): I50.30 - Unspecified diastolic (congestive) heart failure Status: Acute Assessment and Plan: Monitor volume status cautiously. Repeat chest x-ray. Holding antihypertensives due to hypotension. Cont dialysis. Subjective Date/time seen: Date of service: 10/07/19 12:46 Interval history: Follow-up visit for atrial fib/RVR occurring in a paroxysmal fashion in the setting of C difficile colitis. ESRD. DATE OF SERVICE: 10/07/2019 Paroxysmal atrial fibrillation with intermittent rapid ventricular response. Patient was in sinus rhythm overnight reverted back to AFib with RVR this morning heart rate 120-130 beats per minute. Patient with shortness of breath and hypotension intermittently overnight requiring 2 fluid boluses. Currently in hemodialysis with hypotension systolic blood pressures down to the 80s given albumin x2, 1 L fluid removal. She states she feels a little better, still tachypneic but improved. She is aware of her heart rate beating more quickly, denies chest pain. Patient states she is more comfortable the prior to hemodialysis. She received metoprolol 25 mg p.o. x1 this morning and remains on amiodarone IV 1 milligram/minute. Review of Systems Review of Systems: All systems reviewed & are unremarkable except as noted in HPI and below Constitutional: Constitutional: Reports as per HPI, Reports no additional constitutional complaints, Denies chills, Reports fatigue, Denies fever(s), Denies headache(s) and Reports weakness Eyes: Eyes: Reports as per HPI, Reports no additional eye complaints, Denies blurry vision, Denies change in vision, Denies loss of vision and Denies eye pain ENT: Reports system reviewed and no additional complaints, except as documented, Reports as per HPI, Reports Normal hearing present, Denies headache(s), Denies lip swelling, Denies epistaxis, Denies nasal congestion and Denies sore throat Cardiovascular: Cardiovascular: Reports as per HPI, Reports no additional cardiovascular complaints, Denies chest pain, Denies syncope, Reports irregular heart rhythm, Denies leg edema, Denies lightheadedness, Denies palpitations and Denies dyspnea Respiratory: Respiratory: Reports as per HPI, Reports no additional respiratory complaints, Denies cough, Reports dyspnea and Denies wheezing Gastrointestinal: Gastrointestinal: Reports as per HPI, Reports no additional gastrointestinal complaints,
--- NOTE | 2019-10-07 13:10 | PCPTNOTE ---
Patient refused treatment this session due to just getting back from dialysis and reports she does not have the strength at this time to work with therapy. Patient did seem very fatigued.
--- NOTE | 2019-10-07 14:27 | PCOTNOTE ---
Attempted OT treatment, pt reports to tired to move and to try tomorrow. Will attempt tomorrow in AM.
--- NOTE | 2019-10-07 14:53 | P.PNIM_ITS ---
Progress Note: A&P Assessment and Plan (1) C. difficile colitis: Code(s): A04.72 - Enterocolitis due to Clostridium difficile, not specified as recurrent Status: Acute Assessment and Plan: * Given recent C diff, likely this is a recurrence and there is no need to retest. * Fidaxomicin first dose 4/3 PM.(finish today ) * Plan tapering dose of vancomycin following the 10 day course of fidaxomicin start am 10/07 * clinically improving each day with less abd pain and better appetite but still leukocytosis and still diarrhea * KUB 10/05 no colonic dilatation, will check CT abd/pel too (2) Atrial fibrillation with RVR: Code(s): I48.91 - Unspecified atrial fibrillation Status: Acute Assessment and Plan: * 10/05 Cardiology changed to po amiodarone 10/05 but back to rapid afib so back on IV now * 10/05 Fluid bolus for hypotension * Echo 09/03/19 with LVEF 65-70%, severe pulmonary HTN (60mmHg) * continue ASA with high risk bleed with full anticoagulation with colitis * Bp dialysis again this a.m. (3) End-stage renal disease on hemodialysis: Code(s): N18.6 - End stage renal disease; Z99.2 - Dependence on renal dialysis Status: Acute Assessment and Plan: * Dr. Tang consulted for hemodialysis.M,W,F * Mild fluid overloaded 10/01 as evidence by physical exam and chest x-ray. * Dialysis removed 1 L today 10/06, unable to remove more due to hypotension (4) Chronic anemia: Code(s): D64.9 - Anemia, unspecified Status: Acute Assessment and Plan: * Hemoglobin and hematocrit are stable on review of previous labs * Likely anemia of chronic kidney disease * Epogen per renal * hgb stable 8.8 10/06 (5) Suspected sleep apnea: Code(s): R29.818 - Other symptoms and signs involving the nervous system Status: Acute Assessment and Plan: * Pulmonology recommends BiPAP, / with a rate of 14, to be used while sleeping. * Patient is awaiting formal outpatient polysomnogram. (6) Type 2 diabetes mellitus: Qualifiers: Diabetes mellitus intermediate insulin use: with superintendent container terminal use Diabetes mellitus complication status: with hyperglycemia Qualified Code(s): E11.65 - Type 2 diabetes mellitus with hyperglycemia; Z79.4 - shelter (current) use of insulin Code(s): E11.9 - Type 2 diabetes mellitus without complications Status: Acute Assessment and Plan: * Well controlled with a recent hemoglobin A1c of 6.1%. * Low-dose Lantus. * Sliding scale insulin, Accu-Cheks, and hypoglycemic protocol. * 10/06 FBS 99 (7) Hypertension: Qualifiers: Hypertension type: essential hypertension Qualified Code(s): I10 - Essential (primary) hypertension Code(s): I10 - Essential (primary) hypertension Status: Acute Assessment and Plan: * Due to soft blood pressure continue to hold antihypertensives hydralazine, and lisinopril but cardiology restarting beta merry for afib ad pressure will allow (8) Sepsis: Qualifiers: Sepsis type: sepsis due to unspecified organism Sepsis acute organ dysfunction status: without acute organ dysfunction Qualified Code(s): A41.9 - Sepsis, unspecified organism Code(s): A41.9 - Sepsis, unspecified organism Status: Acute Assessment and Plan: * Present on admission and supported by relative hypotension (responsive to IV fluids), fever, and leukocytosis in the setting of C diff colitis. continue rx of c diff (9) Pulmonary hyp
--- NOTE | 2019-10-07 14:53 | PM.IMPN ---
Progress Note: A&P Assessment and Plan (1) C. difficile colitis: Code(s): A04.72 - Enterocolitis due to Clostridium difficile, not specified as recurrent Status: Acute Assessment and Plan: Given recent C diff, likely this is a recurrence and there is no need to retest. Fidaxomicin first dose 4/3 PM.(finish today ) Plan tapering dose of vancomycin following the 10 day course of fidaxomicin start am 10/07 clinically improving each day with less abd pain and better appetite but still leukocytosis and still diarrhea KUB 10/05 no colonic dilatation, will check CT abd/pel too (2) Atrial fibrillation with RVR: Code(s): I48.91 - Unspecified atrial fibrillation Status: Acute Assessment and Plan: 10/05 Cardiology changed to po amiodarone 10/05 but back to rapid afib so back on IV now 10/05 Fluid bolus for hypotension Echo 09/03/19 with LVEF 65-70%, severe pulmonary HTN (60mmHg) continue ASA with high risk bleed with full anticoagulation with colitis Bp dialysis again this a.m. (3) End-stage renal disease on hemodialysis: Code(s): N18.6 - End stage renal disease; Z99.2 - Dependence on renal dialysis Status: Acute Assessment and Plan: Dr. Tang consulted for hemodialysis.M,W,F Mild fluid overloaded 10/01 as evidence by physical exam and chest x-ray. Dialysis removed 1 L today 10/06, unable to remove more due to hypotension (4) Chronic anemia: Code(s): D64.9 - Anemia, unspecified Status: Acute Assessment and Plan: Hemoglobin and hematocrit are stable on review of previous labs Likely anemia of chronic kidney disease Epogen per renal hgb stable 8.8 10/06 (5) Suspected sleep apnea: Code(s): R29.818 - Other symptoms and signs involving the nervous system Status: Acute Assessment and Plan: Pulmonology recommends BiPAP, 14/5 with a rate of 14, to be used while sleeping. Patient is awaiting formal outpatient polysomnogram. (6) Type 2 diabetes mellitus: Qualifiers: Diabetes mellitus intermediate card tender insulin use: with long-term use Diabetes mellitus complication status: with hyperglycemia Qualified Code(s): E11.65 - Type 2 diabetes mellitus with hyperglycemia; Z79.4 - assisted (current) use of insulin Code(s): E11.9 - Type 2 diabetes mellitus without complications Status: Acute Assessment and Plan: Well controlled with a recent hemoglobin A1c of 6.1%. Low-dose Lantus. Sliding scale insulin, Accu-Cheks, and hypoglycemic protocol. 10/06 FBS 99 (7) Hypertension: Qualifiers: Hypertension type: essential hypertension Qualified Code(s): I10 - Essential (primary) hypertension Code(s): I10 - Essential (primary) hypertension Status: Acute Assessment and Plan: Due to soft blood pressure continue to hold antihypertensives hydralazine, and lisinopril but cardiology restarting beta merry for afib ad pressure will allow (8) Sepsis: Qualifiers: Sepsis type: sepsis due to unspecified organism Sepsis acute organ dysfunction status: without acute organ dysfunction Qualified Code(s): A41.9 - Sepsis, unspecified organism Code(s): A41.9 - Sepsis, unspecified organism Status: Acute Assessment and Plan: Present on admission and supported by relative hypotension (responsive to IV fluids), fever, and leukocytosis in the setting of C diff colitis. continue rx of c diff (9) Pulmonary hypertension: Code(s): I27.20 - Pulmonary hypertension, unspecified Status: Acute Assessment and Plan: per echo (10) Cirrhosis: Code(s): K74.60 - Unspecified cirrhosis of liver Status: Acute Assessment and Plan: As documented on CT Abd/pelvis Mild hypersplenism Chronic with unclear etiology , probable [place] Subjective Date/time seen: 10/07/19 14:53 Interval history: Date of visit 10/06. Follow-up for: Annabelle
[2019-10-07] MEDS: CHOLESTYRAMINE LIGHT 4 GM POWD.PACK PO (18:25)
[2019-10-07] MEDS: ALPRAZOLAM 0.5 MG TABLET PO (19:57)
[2019-10-07] MEDS: SIMVASTATIN 20 MG TABLET 40 MG PO (19:57)
[2019-10-07] MEDS: ACETAMINOPHEN 325 MG TABLET 650 MG PO (19:58)
[2019-10-07 20:37] LABS: Glucose Point of Care 95 (65-105)
[2019-10-07 20:37] LABS: Glucose Point of Care 122 (65-105)
[2019-10-07 20:37] LABS: Glucose Point of Care 127 (65-105)
[2019-10-08] VITALS (23 sets, daily range): BP systolic 98–134; BP diastolic 40–99; PULSE 58–122; RESP 18–30; TEMP 36.2–36.9; O2SAT 93–96
[2019-10-08] MEDS: ALBUTEROL SULFATE NEB 2.5 MG/0.5 ML INH 5 MG INHALATION ×3 (01:02→21:17)
[2019-10-08] MEDS: IPRATROPIUM BR 0.02% INH SOLN 0.5 MG/2.5 ML VIAL INHALATION ×3 (01:02→21:17)
[2019-10-08] MEDS: AMIODARONE 360 MG/D5W 200 ML 360 MG/200 ML BAG 33.3 MG IV CONT ×2 (02:14→08:29)
[2019-10-08 04:37] LABS: Basophils Absolute Auto 0.1 K/mm3 (0.0-0.1); Basophils Percent Auto 0.5 % (0.2-1.2); Eosinophils Absolute Auto 0.1 K/mm3 (0-0.3); Eosinophils Percent Auto 0.7 % (0-4.4); Hematocrit 27.8 % (37.0-47.0); Hemoglobin 8.3 g/dL (12.0-15.0); Immature Granulocyte Absolute 0.22 K/mm3 (0.00-0.031); Immature Granulocyte Percent A 1.3 % (0-0.5); Lymphocytes Absolute Auto 1.87 K/mm3 (0.9-3.2); Lymphocytes Percent Auto 11.2 % (18.3-44.2); Mean Corpuscular HGB Conc 29.9 g/dl (32-36); Mean Corpuscular Hemoglobin 27.9 pg (26-34); Mean Corpuscular Volume 93.3 fl (80-100); Mean Platelet Volume 10.6 fl (7.4-10.4); Monocytes Absolute Auto 1.2 K/mm3 (0.1-0.6); Monocytes Percent Auto 7.2 % (2.6-8.5); Neutrophils Absolute Auto 13.3 K/mm3 (1.3-6.7); Neutrophils Percent Auto 79.1 % (45.5-73.1); Nucleated Red Blood Cells Perc 0.2 % (0.0-0.2); Platelet Count Result 115 k/mm3 (150-375); Red Blood Count 2.98 M/mm3 (4.2-5.4); Red Cell Distribution Width 18.7 % (11.5-14.5); White Blood Count 16.8 K/mm3 (4.5-10.0)
[2019-10-08 05:16] LABS: Alanine Aminotransferase 12 U/L (4-35); Albumin Level 2.2 g/dL (3.5-5.1); Alkaline Phosphatase 87 U/L (38-126); Aspartate Amino Transferase 11 U/L (14-36); Bilirubin,Total 0.4 mg/dL (0.2-1.3); Blood Urea Nitrogen 26 mg/dL (7-17); Calcium 7.8 mg/dL (8.4-10.2); Carbon Dioxide 30 mmol/L (22-30); Chloride 97 mmol/L (98-107); Estimated CRCL calculation 16 ml/min; Estimated Glomerular Filt Rate 11; Glucose 98 mg/dL (65-105); Potassium 3.2 mmol/L (3.4-5.0); Sodium 137 mmol/L (137-145)
[2019-10-08] MEDS: VANCOMYCIN ORAL 125 MG/2.5 ML SYRUP PO ×3 (06:08→20:49)
[2019-10-08] MEDS: ASPIRIN 81 MG ENTERIC TABLET PO (08:47)
[2019-10-08] MEDS: FAMOTIDINE 20 MG TABLET PO ×2 (08:47→20:48)
[2019-10-08] MEDS: METOPROLOL TARTRATE 25 MG TABLET PO ×2 (08:47→20:48)
[2019-10-08] MEDS: SACCHAROMYCES BOULARDII 250 MG CAPSULE PO ×2 (08:47→17:23)
[2019-10-08] MEDS: TOLNAFTATE 1% POWDER 45 GM BTL 1 APPLIC TOPICAL ×2 (08:48→20:50)
[2019-10-08 08:52] LABS: Glucose Point of Care 109 (65-105)
[2019-10-08] MEDS: ACETAMINOPHEN 325 MG TABLET 650 MG PO (09:27)
--- NOTE | 2019-10-08 09:31 | PM.PNCARD ---
Progress Note: A&P Assessment and Plan (1) Atrial fibrillation with RVR: Code(s): I48.91 - Unspecified atrial fibrillation Status: Acute Assessment and Plan: New onset atrial fibrillation with RVR, paroxysmal thus far. She has diffuse colitis on CT scan. Currently, not be an ideal candidate for anticoagulation. However, once she is clinically stable, anticoagulation should be reconsidered. Afib with dialysis yesterday. Seems to be the pattern. Sinus rhythm overnight. Brief episode of tachycardia 06:17 to 07:06. Fastest was 113. Will again transition to PO amiodarone. Would not restart IV. Has been off and on IV amiodarone since 09/28/2019. Would tolerate brief episodes of afib. Rate reasonably controlled. Continue BB Supplement potassium (2) Hypotension: Code(s): I95.9 - Hypotension, unspecified Status: Acute Assessment and Plan: Per primary service. Avoid intravascular volume depletion. She was hypotensive prior to reverting back to atrial fibrillation with RVR. May be volume-depleted 2nd diarrhea/nutritional status. 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 Management by Dr. Gonzalez. (4) C. difficile colitis: Code(s): A04.72 - Enterocolitis due to Clostridium difficile, not specified as recurrent Status: Acute Assessment and Plan: Management as per primary team and Infectious Disease. (5) Diastolic CHF: Code(s): I50.30 - Unspecified diastolic (congestive) heart failure Status: Acute Assessment and Plan: Monitor volume status cautiously. Holding antihypertensives due to hypotension. Continue dialysis. Additional Plan Plan discussed with Dr Madyson Sotelo 10/08/2019 Subjective Date/time seen: 10/08/19 09:31 Interval history: Follow-up for: Atrial fibrillation with rapid ventricular response. C difficile colitis, end-stage renal disease on hemodialysis Date of service: 10/08/2019 Subjective: Denies chest discomfort, shortness of breath or palpitations. Rectal pain. Very hard to work with therapy Review of Systems Constitutional: Constitutional: Denies chills, Reports fatigue, Denies fever(s), Denies headache(s) and Reports weakness Eyes: Eyes: Denies blurry vision, Denies change in vision, Denies loss of vision and Denies eye pain ENT: Reports Normal hearing present, Denies headache(s), Denies lip swelling, Denies epistaxis, Denies nasal congestion and Denies sore throat Cardiovascular: Cardiovascular: Denies chest pain, Denies syncope, Reports irregular heart rhythm, Denies leg edema, Denies lightheadedness, Denies palpitations and Reports dyspnea Respiratory: Respiratory: Denies cough, Reports dyspnea and Denies wheezing Gastrointestinal: Gastrointestinal: Denies abdominal pain, Denies melena, Reports diarrhea, Denies nausea and Denies vomiting Comments: Rectal pain Genitourinary: Genitourinary: Denies hematuria Musculoskeletal: Musculoskeletal: Denies back pain, Denies myalgias, Denies muscle cramps, Denies muscle weakness and Reports stiffness Integumentary/Breasts: Skin/Breast: Reports dry skin, Denies pruritus and Denies rash Neurologic: Reports Normal hearing present, Denies Abnormal speech present, Denies behavioral changes, Denies confusion, Denies syncope, Denies headache(s), Denies loss of vision and Reports weakness Psychiatric: Psychiatric: Denies anxiety, Denies behavioral changes, Denies confusion and Denies depression Endocrine: Endocrine: Reports fatigue, Denies polydipsia, Denies polyuria and Denies palpitations Hematologic/Lymphatic: Hematologic/Lymphatic: Denies easy bleeding and Denies easy bruising All
--- NOTE | 2019-10-08 10:10 | P.PNNP_ITS ---
Progress Note: A&P Assessment and Plan (1) Dependence on renal dialysis: Code(s): Z99.2 - Dependence on renal dialysis Status: Acute Assessment and Plan: * JESSICA/ARF on last hospitalization [due to IV diuretics, pre-renal factors, and infection (C. diff colitis + UTI)] * unfortunately, remains dialysis dependent at this time * unclear if recovery will occur but had baseline CKD stage IV at baseline (creatinine ~ 1.8 - 2.2 from HTN/DM/vascular dz) * follow trend of UOP and creatinine on the possibility of renal recovery * continue HD on // schedule (2) C. difficile colitis: Code(s): A04.72 - Enterocolitis due to Clostridium difficile, not specified as recurrent Status: Acute Assessment and Plan: * clinically improvement noted: - less abominal pain - better appetite * however, still having diarrhea and WBC remains elevated * repeat CT of abdomen/pelvis yesterday with results noted (3) Anemia: Qualifiers: Anemia type: iron deficiency Iron deficiency anemia type: unspecified iron deficiency Qualified Code(s): D50.9 - Iron deficiency anemia, unspecified Code(s): D64.9 - Anemia, unspecified Status: Chronic Assessment and Plan: * due to #1, chronic infection/inflammation, and possible SADAF resistance * follow trend of H/H * Epogen with HD (4) Atrial fibrillation with RVR: Code(s): I48.91 - Unspecified atrial fibrillation Status: Acute Assessment and Plan: * Cardiology following * continue rate control strategy * holding off on anticoagulation at this time given acute medical issues (5) Hypertension: Qualifiers: Hypertension type: essential hypertension Qualified Code(s): I10 - Essential (primary) hypertension Code(s): I10 - Essential (primary) hypertension Status: Acute Assessment and Plan: * fluctuates in general * relative hypotension during dialysis makes fluid removal difficult * follow trend of hemodynamics (6) Type 2 diabetes mellitus: Qualifiers: Diabetes mellitus complication status: with hyperglycemia Diabetes mellitus halfway insulin use: with predatory animal exterminator use Qualified Code(s): E11.65 - Type 2 diabetes mellitus with hyperglycemia; Z79.4 - group home (current) use of insulin Code(s): E11.9 - Type 2 diabetes mellitus without complications Status: Acute Assessment and Plan: * follow accuchecks * on SSI Will continue to follow. Subjective Date/time seen: 10/08/19 10:10 Tolerated dialysis yesterday although fluid removal was limited due to her relative hypotension; abdominal cramps are better diarrhea still persists. Major complaint is that of generalized weakness and fatigue. Exam Narrative: Exam Narrative: General: WD/WN female in NAD Heart: normal S1 and S2; no rub Lungs: coarse with decreased breath sounds Abdomen: soft, nondistended, less TTP; positive bowel sounds Extremities: no cyanosis or clubbing; trace edema Skin: warm and intact Objective Data Vital Signs Vital Signs: Vital Signs Temp Pulse Resp BP Pulse Ox 10/08/19 09:43 76 18 10/08/19 09:36 73 26 H 10/08/19 08:47 76 10/08/19 08:00 36.9 C 77 24 H 129/51 L 93 10/08/19 03:57 36.2 C L 65 22 H 98/47 L 95 10/08/19 02:00 73 10/08/19 01:14 68 24 H 10/08/19 01:02 65 24 H 96 10/08/19 00:00
--- NOTE | 2019-10-08 10:10 | PM.PNNEP ---
Progress Note: A&P Assessment and Plan (1) Dependence on renal dialysis: Code(s): Z99.2 - Dependence on renal dialysis Status: Acute Assessment and Plan: JESSICA/ARF on last hospitalization [due to IV diuretics, pre-renal factors, and infection (C. diff colitis + UTI)] unfortunately, remains dialysis dependent at this time unclear if recovery will occur but had baseline CKD stage IV at baseline (creatinine ~ 1.8 - 2.2 from HTN/DM/vascular dz) follow trend of UOP and creatinine on the possibility of renal recovery continue HD on M//F schedule (2) C. difficile colitis: Code(s): A04.72 - Enterocolitis due to Clostridium difficile, not specified as recurrent Status: Acute Assessment and Plan: clinically improvement noted: - less abominal pain - better appetite however, still having diarrhea and WBC remains elevated repeat CT of abdomen/pelvis yesterday with results noted (3) Anemia: Qualifiers: Anemia type: iron deficiency Iron deficiency anemia type: unspecified iron deficiency Qualified Code(s): D50.9 - Iron deficiency anemia, unspecified Code(s): D64.9 - Anemia, unspecified Status: Chronic Assessment and Plan: due to #1, chronic infection/inflammation, and possible SADAF resistance follow trend of H/H Epogen with HD (4) Atrial fibrillation with RVR: Code(s): I48.91 - Unspecified atrial fibrillation Status: Acute Assessment and Plan: Cardiology following continue rate control strategy holding off on anticoagulation at this time given acute medical issues (5) Hypertension: Qualifiers: Hypertension type: essential hypertension Qualified Code(s): I10 - Essential (primary) hypertension Code(s): I10 - Essential (primary) hypertension Status: Acute Assessment and Plan: fluctuates in general relative hypotension during dialysis makes fluid removal difficult follow trend of hemodynamics (6) Type 2 diabetes mellitus: Qualifiers: Diabetes mellitus complication status: with hyperglycemia Diabetes mellitus 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 Subjective Date/time seen: 10/08/19 10:10 Tolerated dialysis yesterday although fluid removal was limited due to her relative hypotension; abdominal cramps are better diarrhea still persists. Major complaint is that of generalized weakness and fatigue. Exam Narrative: Exam Narrative: General: WD/WN female in NAD Heart: normal S1 and S2; no rub Lungs: coarse with decreased breath sounds Abdomen: soft, nondistended, less TTP; positive bowel sounds Extremities: no cyanosis or clubbing; trace edema Skin: warm and intact Objective Data Vital Signs Vital Signs: Vital Signs Temp Pulse Resp BP Pulse Ox 10/08/19 09:43 76 18 10/08/19 09:36 73 26 H 10/08/19 08:47 76 10/08/19 08:00 36.9 C 77 24 H 129/51 L 93 10/08/19 03:57 36.2 C L 65 22 H 98/47 L 95 10/08/19 02:00 73 10/08/19 01:14 68 24 H 10/08/19 01:02 65 24 H 96 10/08/19 00:00 58 L 10/07/19 23:42 36.8 C 59 L 20 96/52 L 97 10/07/19 22:00 58 L 10/07/19 20:28 83 25 H 95 10/07/19 20:13 81 25 H 10/07/19 20:01 86 10/07/19 20:00 36.6 C 72 25 H 105/37 L 95 10/07/19 18:00 62 10/07/19 16:00 36.3 C L 64 30 H 111/45 L 99 10/07/19 15:05 89 23 H 10/07/19 14:55 88 23 H 95 10/07/19 14:00 71 10/07/19 12:30 36.3 C L 98 22 H 110/51 L 10/07/19 12:24 123 H 94/50 L 10/07/19 12:15 130 H 87/40 L 10/07/19 12:00 36.4 C L 90 23 H 91/58 L 94 10/07/19 11:45
[2019-10-08] MEDS: POTASSIUM CHLORIDE 20 MEQ TABLET 40 MEQ PO (11:21)
[2019-10-08] MEDS: CHOLESTYRAMINE LIGHT 4 GM POWD.PACK PO ×2 (11:21→17:23)
--- NOTE | 2019-10-08 13:03 | PCDIET ---
Nutrition Follow-Up Complete: Nutrition Diagnosis: Inadequate oral intake related to decreased appetite likely due to multiple health conditions as evidenced by 11.8% weight loss x 2 months and current average intake of 30%. Nutrition Goal: Patient to consume 50% of meals/supplements or greater. Goal in progress. Patient consuming 50% or less at most meals, but is taking Nepro BID, per nurse aid. Attempted to phone patient x 2 due to COVID-19 precautions, but patient did not answer; information, therefore, obtained by nurse aid, Lizzy. Last recorded weight is 124 kg which is slightly decreased. Bowel Motility: +Loose stools reported. Labs Reviewed: K (3.2), Alb (2.2) Meds Noted: Albuterol, Epogen, Pepcid, NS at 125mL/hr, Vancomycin, Questran, Novolog, Atrovent, Florastor Additional Notes: s/p 40mEq KCl earlier today. Recommend liberalizing diet due to poor intake and hypokalemia with need for replacement. If level remains low, may also want to consider adjusting potassium bath. Will continue to monitor with same goals. Nutrition Monitoring and Evaluation: Follow up every 3 days.
--- NOTE | 2019-10-08 15:30 | P.PNIM_ITS ---
Progress Note: A&P Assessment and Plan (1) C. difficile colitis: Code(s): A04.72 - Enterocolitis due to Clostridium difficile, not specified as recurrent Status: Acute Assessment and Plan: * Given recent C diff, likely this is a recurrence and there is no need to retest. * Fidaxomicin first dose 4/3 PM (completed 10/06 ) * Plan tapering dose of vancomycin following the 10 day course of fidaxomicin start am 10/07 * clinically improving each day with less abd pain and better appetite but still leukocytosis and still diarrhea (although improving) * KUB 10/05 no colonic dilatation * CT abd/pel c/w uncomplicated colitis (2) Atrial fibrillation with RVR: Code(s): I48.91 - Unspecified atrial fibrillation Status: Acute Assessment and Plan: * 10/05 Cardiology changed to po amiodarone 10/05 but back to rapid afib so back on IV now * 10/05 Fluid bolus for hypotension * Echo 09/03/19 with LVEF 65-70%, severe pulmonary HTN (60mmHg) * continue ASA with high risk bleed with full anticoagulation with colitis (3) End-stage renal disease on hemodialysis: Code(s): N18.6 - End stage renal disease; Z99.2 - Dependence on renal dialysis Status: Acute Assessment and Plan: * Dr. Tang consulted for hemodialysis.M,W,F * Mild fluid overloaded 10/01 as evidence by physical exam and chest x-ray. (4) Chronic anemia: Code(s): D64.9 - Anemia, unspecified Status: Acute Assessment and Plan: * Hemoglobin and hematocrit are stable on review of previous labs * Likely anemia of chronic kidney disease * Epogen per renal * hgb stable 8.3 10/07 (5) Suspected sleep apnea: Code(s): R29.818 - Other symptoms and signs involving the nervous system Status: Acute Assessment and Plan: * Pulmonology recommends BiPAP, 06/11 with a rate of 14, to be used while sleeping. * Patient is awaiting formal outpatient polysomnogram. (6) Type 2 diabetes mellitus: Qualifiers: Diabetes mellitus skilled nursing insulin use: with skilled nursing use Diabetes mellitus complication status: with hyperglycemia Qualified Code(s): E11.65 - Type 2 diabetes mellitus with hyperglycemia; Z79.4 - snf (current) use of insulin Code(s): E11.9 - Type 2 diabetes mellitus without complications Status: Acute Assessment and Plan: * Well controlled with a recent hemoglobin A1c of 6.1%. * Low-dose Lantus. * Sliding scale insulin, Accu-Cheks, and hypoglycemic protocol. (7) Hypertension: Qualifiers: Hypertension type: essential hypertension Qualified Code(s): I10 - Essential (primary) hypertension Code(s): I10 - Essential (primary) hypertension Status: Acute Assessment and Plan: * Due to soft blood pressure continue to hold antihypertensives hydralazine, and lisinopril but cardiology restarting beta merry for afib ad pressure will allow (8) Sepsis: Qualifiers: Sepsis type: sepsis due to unspecified organism Sepsis acute organ dysfunction status: without acute organ dysfunction Qualified Code(s): A41.9 - Sepsis, unspecified organism Code(s): A41.9 - Sepsis, unspecified organism Status: Acute Assessment and Plan: * Present on admission and supported by relative hypotension (responsive to IV fluids), fever, and leukocytosis in the setting of C diff colitis. continue rx of c diff (9) Pulmonary hypertension: Code(s): I27.20 - Pulmonary hypertension, unspecif
--- NOTE | 2019-10-08 15:30 | PM.IMPN ---
Progress Note: A&P Assessment and Plan (1) C. difficile colitis: Code(s): A04.72 - Enterocolitis due to Clostridium difficile, not specified as recurrent Status: Acute Assessment and Plan: Given recent C diff, likely this is a recurrence and there is no need to retest. Fidaxomicin first dose 4/3 PM (completed 10/06 ) Plan tapering dose of vancomycin following the 10 day course of fidaxomicin start am 10/07 clinically improving each day with less abd pain and better appetite but still leukocytosis and still diarrhea (although improving) KUB 10/[address] abd/pel c/w uncomplicated colitis (2) Atrial fibrillation with RVR: Code(s): I48.91 - Unspecified atrial fibrillation Status: Acute Assessment and Plan: 10/05 Cardiology changed to po amiodarone 10/05 but back to rapid afib so back on IV now 10/05 Fluid bolus for hypotension Echo 09/03/19 with LVEF 65-70%, severe pulmonary HTN (60mmHg) continue ASA with high risk bleed with full anticoagulation with colitis (3) End-stage renal disease on hemodialysis: Code(s): N18.6 - End stage renal disease; Z99.2 - Dependence on renal dialysis Status: Acute Assessment and Plan: Dr. Tang consulted for hemodialysis.M,W,F Mild fluid overloaded 10/01 as evidence by physical exam and chest x-ray. (4) Chronic anemia: Code(s): D64.9 - Anemia, unspecified Status: Acute Assessment and Plan: Hemoglobin and hematocrit are stable on review of previous labs Likely anemia of chronic kidney disease Epogen per renal hgb stable 8.3 10/07 (5) Suspected sleep apnea: Code(s): R29.818 - Other symptoms and signs involving the nervous system Status: Acute Assessment and Plan: Pulmonology recommends BiPAP, 06/11 with a rate of 14, to be used while sleeping. Patient is awaiting formal outpatient polysomnogram. (6) Type 2 diabetes mellitus: Qualifiers: Diabetes mellitus intermediate designer insulin use: with senior care use Diabetes mellitus complication status: with hyperglycemia Qualified Code(s): E11.65 - Type 2 diabetes mellitus with hyperglycemia; Z79.4 - half-way (current) use of insulin Code(s): E11.9 - Type 2 diabetes mellitus without complications Status: Acute Assessment and Plan: Well controlled with a recent hemoglobin A1c of 6.1%. Low-dose Lantus. Sliding scale insulin, Accu-Cheks, and hypoglycemic protocol. (7) Hypertension: Qualifiers: Hypertension type: essential hypertension Qualified Code(s): I10 - Essential (primary) hypertension Code(s): I10 - Essential (primary) hypertension Status: Acute Assessment and Plan: Due to soft blood pressure continue to hold antihypertensives hydralazine, and lisinopril but cardiology restarting beta merry for afib ad pressure will allow (8) Sepsis: Qualifiers: Sepsis type: sepsis due to unspecified organism Sepsis acute organ dysfunction status: without acute organ dysfunction Qualified Code(s): A41.9 - Sepsis, unspecified organism Code(s): A41.9 - Sepsis, unspecified organism Status: Acute Assessment and Plan: Present on admission and supported by relative hypotension (responsive to IV fluids), fever, and leukocytosis in the setting of C diff colitis. continue rx of c diff (9) Pulmonary hypertension: Code(s): I27.20 - Pulmonary hypertension, unspecified Status: Acute Assessment and Plan: per echo (10) Cirrhosis: Code(s): K74.60 - Unspecified cirrhosis of liver Status: Acute Assessment and Plan: As documented on CT Abd/pelvis Mild hypersplenism Chronic with unclear etiology , probable [place] Subjective Date/time seen: 10/08/19 15:30 Interval history: Admitted 09/26 with first recurrence of c diff colitis. Abdominal cramps subsided. Diarrhea still with rectal tube. An
[2019-10-08 17:02] LABS: Glucose Point of Care 103 (65-105)
[2019-10-08] MEDS: AMIODARONE HCL 200 MG TABLET 400 MG PO (17:23)
[2019-10-08 20:47] LABS: Glucose Point of Care 122 (65-105)
[2019-10-08 20:47] LABS: Glucose Point of Care 199 (65-105)
[2019-10-08] MEDS: SIMVASTATIN 20 MG TABLET 40 MG PO (20:48)
[2019-10-09] VITALS (35 sets, daily range): BP systolic 91–169; BP diastolic 17–82; PULSE 51–136; RESP 18–32; TEMP 36.3–37.1; O2SAT 92–96
[2019-10-09] MEDS: IPRATROPIUM BR 0.02% INH SOLN 0.5 MG/2.5 ML VIAL INHALATION ×3 (02:31→19:48)
[2019-10-09] MEDS: ALBUTEROL SULFATE NEB 2.5 MG/0.5 ML INH 5 MG INHALATION ×3 (02:31→19:48)
[2019-10-09 02:50] LABS: Add Urine Microscopic? YES; Appearance Urine Turbid (Clear); Bacteria Urine 4+ /hpf; Bilirubin Urine Negative (Negative); Blood Urine 1+ (Negative); Budding Yeast Urine Present /hpf; Color Urine Yellow (Yellow); Glucose Urine UA Negative (Negative); Ketones Urine Trace mg/dL (Negative); Leukocyte Esterase Ur 2+ LEU/UL (Negative); Nitrate Urine Negative (Negative); Protein Urine 2+ mg/dL (Negative); RBC Urine >75 /hpf (0-2); Specific Grav Ur 1.025 (1.001-1.035); Urobilinogen Urine Negative mg/dL (<2.0); WBC Clumps Urine Present /HPF; WBC Urine >75 /hpf
[2019-10-09 05:15] LABS: Hematocrit 27.6 % (37.0-47.0); Hemoglobin 8.6 g/dL (12.0-15.0); Mean Corpuscular HGB Conc 31.2 g/dl (32-36); Mean Corpuscular Hemoglobin 28.1 pg (26-34); Mean Corpuscular Volume 90.2 fl (80-100); Mean Platelet Volume 10.1 fl (7.4-10.4); Platelet Count Result 127 k/mm3 (150-375); Red Blood Count 3.06 M/mm3 (4.2-5.4); Red Cell Distribution Width 19.3 % (11.5-14.5); White Blood Count 12.1 K/mm3 (4.5-10.0)
[2019-10-09 05:25] LABS: Potassium 3.6 mmol/L (3.4-5.0)
[2019-10-09 05:37] LABS: Blood Urea Nitrogen 36 mg/dL (7-17); Calcium 7.7 mg/dL (8.4-10.2); Carbon Dioxide 27 mmol/L (22-30); Chloride 99 mmol/L (98-107); Estimated CRCL calculation 13 ml/min; Estimated Glomerular Filt Rate 9; Glucose 108 mg/dL (65-105); Sodium 134 mmol/L (137-145)
[2019-10-09] MEDS: VANCOMYCIN ORAL 125 MG/2.5 ML SYRUP PO ×3 (05:44→22:58)
[2019-10-09 06:11] LABS: CRP 22.8 mg/dL (<1.0)
[2019-10-09 08:37] LABS: Glucose Point of Care 118 (65-105)
[2019-10-09] MEDS: AMIODARONE HCL 200 MG TABLET 400 MG PO (08:56)
[2019-10-09] MEDS: METOPROLOL TARTRATE 25 MG TABLET PO (08:56)
[2019-10-09] MEDS: SACCHAROMYCES BOULARDII 250 MG CAPSULE PO ×2 (08:56→18:34)
[2019-10-09] MEDS: ASPIRIN 81 MG ENTERIC TABLET PO (08:56)
[2019-10-09] MEDS: CHOLESTYRAMINE LIGHT 4 GM POWD.PACK PO ×2 (08:57→18:34)
[2019-10-09] MEDS: FAMOTIDINE 20 MG TABLET PO ×2 (08:57→23:00)
[2019-10-09] MEDS: TOLNAFTATE 1% POWDER 45 GM BTL 1 APPLIC TOPICAL ×2 (08:57→23:03)
--- NOTE | 2019-10-09 09:50 | PM.PNCARD ---
Progress Note: A&P Assessment and Plan (1) Atrial fibrillation with RVR: Code(s): I48.91 - Unspecified atrial fibrillation Status: Acute Assessment and Plan: New onset atrial fibrillation with RVR, paroxysmal even with adequate loading of amiodarone. Episodes are short, rate relatively controlled and asymptomatic. Diffuse colitis on CT scan. Currently, not be an ideal candidate for anticoagulation. Once she is clinically stable, anticoagulation should be reconsidered. Continue amiodarone at 200 mg daily. Continue Metoprolol at 25 mg daily. (2) Hypotension: Code(s): I95.9 - Hypotension, unspecified Status: Acute Assessment and Plan: Per primary service. Avoid intravascular volume depletion. May be volume-depleted 2nd diarrhea/nutritional status. (3) End-stage renal disease on hemodialysis: Code(s): N18.6 - End stage renal disease; Z99.2 - Dependence on renal dialysis Status: Acute Assessment and Plan: [facility] with hemodialysis MWF. Management by Dr. Gonzalez. (4) C. difficile colitis: Code(s): A04.72 - Enterocolitis due to Clostridium difficile, not specified as recurrent Status: Acute Assessment and Plan: Management as per primary team and Infectious Disease. (5) Diastolic CHF: Code(s): I50.30 - Unspecified diastolic (congestive) heart failure Status: Acute Assessment and Plan: Monitor volume status cautiously. Holding antihypertensives due to hypotension. Continue dialysis. Additional Plan Discontinue telemetry. OK to transfer to medicine. Will follow-up p.r.n.. Please do not hesitate to call if we can be of further assistance. Plan discussed Dr. Coughlin [id number] 10/09/2019 Subjective Date/time seen: 10/09/19 09:50 Interval history: Follow-up for: Atrial fibrillation with rapid ventricular response. C difficile colitis, end-stage renal disease on hemodialysis Date of service: 10/09/2019 Subjective: Slept in this morning. Denied chest discomfort, shortness of breath, lightheadedness or palpitations. Review of Systems Constitutional: Constitutional: Denies chills, Reports fatigue, Denies fever(s), Denies headache(s) and Reports weakness Eyes: Eyes: Denies blurry vision, Denies change in vision, Denies loss of vision and Denies eye pain ENT: Reports Normal hearing present, Denies headache(s), Denies lip swelling, Denies epistaxis, Denies nasal congestion and Denies sore throat Cardiovascular: Cardiovascular: Denies chest pain, Denies syncope, Denies leg edema, Denies lightheadedness, Denies palpitations and Denies dyspnea Respiratory: Respiratory: Denies cough, Reports dyspnea and Denies wheezing Gastrointestinal: Gastrointestinal: Denies abdominal pain, Denies melena, Reports diarrhea, Denies nausea and Denies vomiting Genitourinary: Genitourinary: Denies hematuria Musculoskeletal: Musculoskeletal: Denies back pain, Denies myalgias, Denies muscle cramps, Denies muscle weakness and Reports stiffness Integumentary/Breasts: Skin/Breast: Reports dry skin, Denies pruritus and Denies rash Neurologic: Reports Normal hearing present, Denies Abnormal speech present, Denies behavioral changes, Denies confusion, Denies syncope, Denies headache(s), Denies loss of vision and Reports weakness Psychiatric: Psychiatric: Denies anxiety, Denies behavioral changes, Denies confusion and Denies depression Endocrine: Endocrine: Reports fatigue, Denies polydipsia, Denies polyuria and Denies palpitations Hematologic/Lymphatic: Hematologic/Lymphatic: Denies easy bleeding and Denies easy bruising Allergic/Immunologic: Allergic/Immunologic: Denies lip swelling and Denies wheezing Exam Const: General: cooperative, no acute distress and uncomfortable; No confusion Nutritional Appearance: obese Orien
--- NOTE | 2019-10-09 11:07 | P.PNIM_ITS ---
Progress Note: A&P Assessment and Plan (1) C. difficile colitis: Code(s): A04.72 - Enterocolitis due to Clostridium difficile, not specified as recurrent Status: Acute Assessment and Plan: * Given recent C diff, likely this is a recurrence and there is no need to retest. * Fidaxomicin first dose 4/3 PM (completed 10/06 ) * Plan tapering dose of vancomycin following the 10 day course of fidaxomicin started am 10/07 * Clinically improving each day with less abd pain and better appetite but still leukocytosis and still diarrhea (although improving) * KUB 10/05 no colonic dilatation * 10/06 CT abd/pel c/w uncomplicated colitis (2) Atrial fibrillation with RVR: Code(s): I48.91 - Unspecified atrial fibrillation Status: Acute Assessment and Plan: * 10/05 Cardiology changed to po amiodarone 10/05 but back to rapid afib so back on IV now * 10/05 Fluid bolus for hypotension * Echo 09/03/19 with LVEF 65-70%, severe pulmonary HTN (60mmHg) * continue ASA with high risk of bleed with full anticoagulation due to colitis (3) End-stage renal disease on hemodialysis: Code(s): N18.6 - End stage renal disease; Z99.2 - Dependence on renal dialysis Status: Acute Assessment and Plan: * Dr. Tang consulted for hemodialysis.M,W,F * Mild fluid overloaded 10/01 as evidence by physical exam and chest x-ray. (4) Chronic anemia: Code(s): D64.9 - Anemia, unspecified Status: Acute Assessment and Plan: * Hemoglobin and hematocrit are stable on review of previous labs * Likely anemia of chronic kidney disease * Epogen per renal * hgb stable 8.3 10/07 (5) Suspected sleep apnea: Code(s): R29.818 - Other symptoms and signs involving the nervous system Status: Acute Assessment and Plan: * Pulmonology recommends BiPAP, 06/11 with a rate of 14, to be used while sleeping. * Patient is awaiting formal outpatient polysomnogram. (6) Type 2 diabetes mellitus: Qualifiers: Diabetes mellitus complication status: with hyperglycemia Diabetes mellitus detention insulin use: with terminal press operator use Qualified Code(s): E11.65 - Type 2 diabetes mellitus with hyperglycemia; Z79.4 - intermediate (current) use of insulin Code(s): E11.9 - Type 2 diabetes mellitus without complications Status: Acute Assessment and Plan: * Well controlled with a recent hemoglobin A1c of 6.1%. * Low-dose Lantus. * Sliding scale insulin, Accu-Cheks, and hypoglycemic protocol. (7) Hypertension: Qualifiers: Hypertension type: essential hypertension Qualified Code(s): I10 - Essential (primary) hypertension Code(s): I10 - Essential (primary) hypertension Status: Acute Assessment and Plan: * Continue beta-merry (8) Sepsis: Qualifiers: Sepsis acute organ dysfunction status: without acute organ dysfunction Sepsis type: sepsis due to unspecified organism Qualified Code(s): A41.9 - Sepsis, unspecified organism Code(s): A41.9 - Sepsis, unspecified organism Status: Acute Assessment and Plan: * Present on admission and supported by relative hypotension (responsive to IV fluids), fever, and leukocytosis in the setting of C diff colitis. continue rx of c diff (9) Pulmonary hypertension: Code(s): I27.20 - Pulmonary hypertension, unspecified Status: Acute Assessment and Plan: * per echo * likely secondary (10) Cirrhosis: Cod
--- NOTE | 2019-10-09 11:07 | PM.IMPN ---
Progress Note: A&P Assessment and Plan (1) C. difficile colitis: Code(s): A04.72 - Enterocolitis due to Clostridium difficile, not specified as recurrent Status: Acute Assessment and Plan: Given recent C diff, likely this is a recurrence and there is no need to retest. Fidaxomicin first dose 4/3 PM (completed 10/06 ) Plan tapering dose of vancomycin following the 10 day course of fidaxomicin started am 10/07 Clinically improving each day with less abd pain and better appetite but still leukocytosis and still diarrhea (although improving) KUB 10/05 no colonic dilatation 10/06 CT abd/pel c/w uncomplicated colitis (2) Atrial fibrillation with RVR: Code(s): I48.91 - Unspecified atrial fibrillation Status: Acute Assessment and Plan: 10/05 Cardiology changed to po amiodarone 10/05 but back to rapid afib so back on IV now 10/05 Fluid bolus for hypotension Echo 09/03/19 with LVEF 65-70%, severe pulmonary HTN (60mmHg) continue ASA with high risk of bleed with full anticoagulation due to colitis (3) End-stage renal disease on hemodialysis: Code(s): N18.6 - End stage renal disease; Z99.2 - Dependence on renal dialysis Status: Acute Assessment and Plan: Dr. Tang consulted for hemodialysis.M,W,F Mild fluid overloaded 10/01 as evidence by physical exam and chest x-ray. (4) Chronic anemia: Code(s): D64.9 - Anemia, unspecified Status: Acute Assessment and Plan: Hemoglobin and hematocrit are stable on review of previous labs Likely anemia of chronic kidney disease Epogen per renal hgb stable 8.3 10/07 (5) Suspected sleep apnea: Code(s): R29.818 - Other symptoms and signs involving the nervous system Status: Acute Assessment and Plan: Pulmonology recommends BiPAP, 14/5 with a rate of 14, to be used while sleeping. Patient is awaiting formal outpatient polysomnogram. (6) Type 2 diabetes mellitus: Qualifiers: Diabetes mellitus complication status: with hyperglycemia Diabetes mellitus senior living insulin use: with forensic structural engineer use Qualified Code(s): E11.65 - Type 2 diabetes mellitus with hyperglycemia; Z79.4 - [employer]bark pe[employer] (current) use of insulin Code(s): E11.9 - Type 2 diabetes mellitus without complications Status: Acute Assessment and Plan: Well controlled with a recent hemoglobin A1c of 6.1%. Low-dose Lantus. Sliding scale insulin, Accu-Cheks, and hypoglycemic protocol. (7) Hypertension: Qualifiers: Hypertension type: essential hypertension Qualified Code(s): I10 - Essential (primary) hypertension Code(s): I10 - Essential (primary) hypertension Status: Acute Assessment and Plan: Continue beta-merry (8) Sepsis: Qualifiers: Sepsis acute organ dysfunction status: without acute organ dysfunction Sepsis type: sepsis due to unspecified organism Qualified Code(s): A41.9 - Sepsis, unspecified organism Code(s): A41.9 - Sepsis, unspecified organism Status: Acute Assessment and Plan: Present on admission and supported by relative hypotension (responsive to IV fluids), fever, and leukocytosis in the setting of C diff colitis. continue rx of c diff (9) Pulmonary hypertension: Code(s): I27.20 - Pulmonary hypertension, unspecified Status: Acute Assessment and Plan: per echo likely secondary (10) Cirrhosis: Code(s): K74.60 - Unspecified cirrhosis of liver Status: Acute Assessment and Plan: As documented on CT Abd/pelvis Mild hypersplenism Chronic with unclear etiology , probable LAWRENCE Subjective Date/time seen: 10/09/19 11:07 Interval history: Admitted 09/26 with first recurrence of c diff colitis. Diarrhea still with rectal tube. Feeling better overall. Eating better. Rectal tube placed 4/6 p.m. for severe diarrhea. Causes some discomfort. Denied chest dis
--- NOTE | 2019-10-09 12:05 | PCOTNOTE ---
Attempted to see patient this am, however patient declined stating I just got positioned for dialysis.
--- NOTE | 2019-10-09 13:10 | WPDINFPN2 ---
Progress Note: A&P Assessment and Plan (1) C. difficile colitis: Code(s): A04.72 - Enterocolitis due to Clostridium difficile, not specified as recurrent Status: Acute Assessment and Plan: 1. Relapsed C diff infection, WBC trending back down, otherwise without complication. Stool in bag: brown and no form 2. Cirrhosis 3. CRF on HD 4. Dyspnea, possibly related to her chronic renal failure. Doubt HCAP 5. Pyuria, I cannot discern reason for urine collection, she has no clinical findings of UTI REC (C diff treatment day # 13). tid Vanc # 2 /14 with taper thereafter. No further Ceftriaxone. Subjective Date/time seen: 10/09/19 13:10 Interval history: no new complaints Exam Narrative: Exam Narrative: afebrile Const: General: no acute distress Other: obese Eyes: General: appearance normal, both eyes and all related structures Resp: Effort & Inspection: normal respiratory effort Auscultation: clear to auscultation bilaterally Cardio: Rate: regular rate Rhythm: regular rhythm Heart sounds: no gallops and no murmurs GI: Inspection: non-distended GI Palp: Yes Soft to palpation, No Tenderness to palpation present (GI) and No Guarding due to palpation present (GI) Other: liquid stool in flexiseal Objective Data Vital Signs Vital Signs: Vital Signs - 24 hr 10/08/19 14:34 10/08/19 15:14 10/08/19 16:00 Temperature 36.7 C Pulse Rate 80 62 67 Respiratory Rate 18 22 H Blood Pressure 134/85 Pulse Oximetry 94 10/08/19 17:23 10/08/19 18:00 10/08/19 19:57 Temperature 36.6 C Pulse Rate 66 66 80 Respiratory Rate 18 Blood Pressure 115/40 L Pulse Oximetry 94 10/08/19 20:00 10/08/19 20:48 10/08/19 21:17 Temperature Pulse Rate 61 75 75 Respiratory Rate 20 Blood Pressure Pulse Oximetry 95 10/08/19 21:28 10/08/19 22:00 10/08/19 23:10 Temperature Pulse Rate 77 84 61 Respiratory Rate 20 30 H Blood Pressure Pulse Oximetry 95 10/09/19 00:00 10/09/19 02:00 10/09/19 02:21 Temperature 36.9 C Pulse Rate 96 126 H 79 Respiratory Rate 20 Blood Pressure 138/49 L Pulse Oximetry 95 10/09/19 02:31 10/09/19 02:42 10/09/19 04:00 Temperature 36.9 C Pulse Rate 71 77 133 H Respiratory Rate 32 H 30 H 22 H Blood Pressure 100/82 Pulse Oximetry 92 10/09/19 04:04 10/09/19 06:00 10/09/19 08:00 Temperature Pulse Rate 75 69 130 H Respiratory Rate Blood Pressure Pulse Oximetry 10/09/19 08:40 10/09/19 08:56 10/09/19 09:00 Temperature 37.1 C Pulse Rate 136 H 74 86 Respiratory Rate 28 H 26 H Blood Pressure 101/43 L Pulse Oximetry 93 10/09/19 10:00 Temperature Pulse Rate 76 Respiratory Rate Blood Pressure Pulse Oximetry Intake/Output Intake/Output: Intake & Output 10/06/19 10/07/19 10/08/19 10/09/19 23:59 23:59 23:59 23:59 Intake Total 2090 1630 577 50 Output Total 400 1700 800 Balance 1690 -70 577 -750 Meds/Results Medications: Active Medications Generic Name Dose Route Start Last Admin Trade Name Freq PRN Reason Stop Dose Admin Acetaminophen 650 mg 09/30/19 01:35 10/08/19 09:27 Tylenol Tablet PO 650 mg Q4H PRN Administration Mild Pain (1-3) or Fever Albuterol 5 mg 10/03/19 14:00 10/09/19 08:58 Albuterol Sulf Neb 2.5mg/0.5ml INHALATION 5 mg Q6HRT DEJON Administration Alprazolam 0.5 mg 09/27/19 21:21 10/07/19 19:57 Xanax PO 0.5 mg TID PRN Administration Anxiety Amiodarone HCl 200 mg 10/10/19 08:00 Pacerone PO DAILY@0800 DEJON Aspirin 81 mg 09/28/19 09:00 10/09/19 08:56 Aspirin Ec PO 81 mg DAILY DEJON Administration Cholestyramine Resin 4 gm 09/30/19 21:00 10/09/19 08:57 Questran Light Packet PO 4 gm BID@1000,1800 DEJON Administration Dextrose 12.5 gm 09/27/19 21:09 Dextrose 50% Syringe IV PUSH PRN PRN Hypoglycemia Protocol Epoetin Cameron 10,000 units 09/30/19 11:00 10/07/19 10:34 Epogen IV P
--- NOTE | 2019-10-09 13:54 | PC.NURSE ---
This patient, Aurelia Alcantara, was transferred to [[id number]] on 10/09/19 at 1308. Personal belongings sent with patient. Belongings list checked and signed with receiving [ ]. Report given to [RICARDO CHAPMAN]. Appropriate documentation sent with patient. patient went to dialysis at this time but report was called to [facility] on [facility]. after dialysis patient will go to room 260.
--- NOTE | 2019-10-09 14:18 | PCPTNOTE ---
The PT treatment was unable to be completed today due to patient out of room for procedure. Will continue per Plan of Care frequency and duration.
[2019-10-09] MEDS: EPOETIN ALFA 10,000 UNITS/ML VIAL 10000 UNITS IV PUSH (15:57)
--- NOTE | 2019-10-09 16:35 | P.PNNP_ITS ---
Progress Note: A&P Assessment and Plan (1) Dependence on renal dialysis: Code(s): Z99.2 - Dependence on renal dialysis Status: Acute Assessment and Plan: * JESSICA/ARF on last hospitalization [due to IV diuretics, pre-renal factors, and infection (C. diff colitis + UTI)] * unfortunately, remains dialysis dependent at this time * unclear if recovery will occur but had CKD stage IV at baseline (creatinine ~ 1.8 - 2.2 from HTN/DM/vascular dz) * follow trend of UOP and creatinine on the possibility of renal recovery * HD today and continue HD on // schedule (2) C. difficile colitis: Code(s): A04.72 - Enterocolitis due to Clostridium difficile, not specified as recurrent Status: Acute Assessment and Plan: * clinically improvement noted: - less abominal pain - better appetite * on po vancomycin - WBC improving * repeat CT of abdomen/pelvis with results noted * continue supportive therapy (3) Anemia: Qualifiers: Anemia type: iron deficiency Iron deficiency anemia type: unspecified iron deficiency Qualified Code(s): D50.9 - Iron deficiency anemia, unspecified Code(s): D64.9 - Anemia, unspecified Status: Chronic Assessment and Plan: * due to #1, chronic infection/inflammation, and possible SADAF resistance * follow trend of H/H * Epogen with HD (4) Atrial fibrillation with RVR: Code(s): I48.91 - Unspecified atrial fibrillation Status: Acute Assessment and Plan: * Cardiology following * continue rate control strategy * holding off on anticoagulation at this time given acute medical issues (5) Hypertension: Qualifiers: Hypertension type: essential hypertension Qualified Code(s): I10 - Essential (primary) hypertension Code(s): I10 - Essential (primary) hypertension Status: Acute Assessment and Plan: * fluctuates in general * fluid removal as tolerated * follow trend of hemodynamics (6) Type 2 diabetes mellitus: Qualifiers: Diabetes mellitus complication status: with hyperglycemia Diabetes mellitus usp insulin use: with long term care social worker use Qualified Code(s): E11.65 - Type 2 diabetes mellitus with hyperglycemia; Z79.4 - [facility] (current) use of insulin Code(s): E11.9 - Type 2 diabetes mellitus without complications Status: Acute Assessment and Plan: * follow accuchecks * on SSI Will continue to follow. Subjective Date/time seen: 10/09/19 16:35 Tolerating dialysis at the time of my visit (seen on HD at ~ 4:00PM); shortness of breath noted pre-treatment so attempting more aggressive ultrafiltration today on the assumption this will improve her breathing; otherwise, she states she thinks she is doing better in general. Exam Narrative: Exam Narrative: General: WD/WN female in NAD Heart: normal S1 and S2; no rub Lungs: coarse with decreased breath sounds Abdomen: soft, nondistended, less TTP; positive bowel sounds Extremities: no cyanosis or clubbing; trace edema Skin: warm and intact Objective Data Vital Signs Vital Signs: Vital Signs Temp Pulse Resp BP Pulse Ox 10/09/19 16:30 76 106/52 L 10/09/19 16:15 51 L 113/42 L 10/09/19 16:00 73 114/42 L 10/09/19 15:45 64 91/56 L 10/09/19 15:30 61 143/17 H 10/09/19 15:15 96 137/23 L 10/09/19 15:00 98 166/51 H 10/09/19 14:45
--- NOTE | 2019-10-09 16:35 | PM.PNNEP ---
Progress Note: A&P Assessment and Plan (1) Dependence on renal dialysis: Code(s): Z99.2 - Dependence on renal dialysis Status: Acute Assessment and Plan: JESSICA/ARF on last hospitalization [due to IV diuretics, pre-renal factors, and infection (C. diff colitis + UTI)] unfortunately, remains dialysis dependent at this time unclear if recovery will occur but had CKD stage IV at baseline (creatinine ~ 1.8 - 2.2 from HTN/DM/vascular dz) follow trend of UOP and creatinine on the possibility of renal recovery HD today and continue HD on M/W/F schedule (2) C. difficile colitis: Code(s): A04.72 - Enterocolitis due to Clostridium difficile, not specified as recurrent Status: Acute Assessment and Plan: clinically improvement noted: - less abominal pain - better appetite on po vancomycin - WBC improving repeat CT of abdomen/pelvis with results noted continue supportive therapy (3) Anemia: Qualifiers: Anemia type: iron deficiency Iron deficiency anemia type: unspecified iron deficiency Qualified Code(s): D50.9 - Iron deficiency anemia, unspecified Code(s): D64.9 - Anemia, unspecified Status: Chronic Assessment and Plan: due to #1, chronic infection/inflammation, and possible SADAF resistance follow trend of H/H Epogen with HD (4) Atrial fibrillation with RVR: Code(s): I48.91 - Unspecified atrial fibrillation Status: Acute Assessment and Plan: Cardiology following continue rate control strategy holding off on anticoagulation at this time given acute medical issues (5) Hypertension: Qualifiers: Hypertension type: essential hypertension Qualified Code(s): I10 - Essential (primary) hypertension Code(s): I10 - Essential (primary) hypertension Status: Acute Assessment and Plan: fluctuates in general fluid removal as tolerated follow trend of hemodynamics (6) Type 2 diabetes mellitus: Qualifiers: Diabetes mellitus complication status: with hyperglycemia Diabetes mellitus nursing home insulin use: with watermelon inspector use Qualified Code(s): E11.65 - Type 2 diabetes mellitus with hyperglycemia; Z79.4 - long term (current) use of insulin Code(s): E11.9 - Type 2 diabetes mellitus without complications Status: Acute Assessment and Plan: follow accuchecks on SSI Will continue to follow. Subjective Date/time seen: 10/09/19 16:35 Tolerating dialysis at the time of my visit (seen on HD at ~ 4:00PM); shortness of breath noted pre-treatment so attempting more aggressive ultrafiltration today on the assumption this will improve her breathing; otherwise, she states she thinks she is doing better in general. Exam Narrative: Exam Narrative: General: WD/WN female in NAD Heart: normal S1 and S2; no rub Lungs: coarse with decreased breath sounds Abdomen: soft, nondistended, less TTP; positive bowel sounds Extremities: no cyanosis or clubbing; trace edema Skin: warm and intact Objective Data Vital Signs Vital Signs: Vital Signs Temp Pulse Resp BP Pulse Ox 10/09/19 16:30 76 106/52 L 10/09/19 16:15 51 L 113/42 L 10/09/19 16:00 73 114/42 L 10/09/19 15:45 64 91/56 L 10/09/19 15:30 61 143/17 H 10/09/19 15:15 96 137/23 L 10/09/19 15:00 98 166/51 H 10/09/19 14:45 104 H 133/64 10/09/19 14:30 107 H 98/53 L 10/09/19 14:15 79 104/53 L 10/09/19 14:00 111 H 144/29 H 10/09/19 13:45 71 133/42 L 10/09/19 13:43 36.7 C 82 22 H 148/58 H 10/09/19 13:30 75 150/57 H 10/09/19 13:22 83 169/59 H 10/09/19 10:00 76 10/09/19 09:00 86 26 H 10/09/19 08:56 74 10/09/19 08:40 37.1 C 136 H 28 H 101/43 L 93 10/09/19 08:00 130 H 10/09/19 06:00 69 10/09/19 04:04 75 10/09/19 04:00 36.9 C 133 H 22 H 100/82 92 10/09/19 02:42 77 30 H 10/09/19
--- NOTE | 2019-10-09 17:52 | PC.NURSE ---
This patient, Aurelia Alcantara, was received from [facility] on 10/09/19 at 1752. Received patient from dialysis. Personal belongings list checked and signed. Patient/family oriented to unit policies and routines
[2019-10-09 18:30] LABS: Glucose Point of Care 86 (65-105)
[2019-10-09 18:46] LABS: Glucose Point of Care 110 (65-105)
[2019-10-09 20:37] LABS: Glucose Point of Care 111 (65-105)
[2019-10-09] MEDS: ACETAMINOPHEN 325 MG TABLET 650 MG PO (22:57)
[2019-10-09] MEDS: SIMVASTATIN 20 MG TABLET 40 MG PO (22:59)
[2019-10-10] VITALS (21 sets, daily range): BP systolic 116–133; BP diastolic 30–56; PULSE 56–111; RESP 18–26; TEMP 36.3–36.6; O2SAT 92–99
[2019-10-10] MEDS: ALBUTEROL SULFATE NEB 2.5 MG/0.5 ML INH 5 MG INHALATION ×4 (01:41→20:00)
[2019-10-10] MEDS: IPRATROPIUM BR 0.02% INH SOLN 0.5 MG/2.5 ML VIAL INHALATION ×4 (01:42→20:00)
[2019-10-10] MEDS: VANCOMYCIN ORAL 125 MG/2.5 ML SYRUP PO ×3 (06:26→22:06)
[2019-10-10] MEDS: ACETAMINOPHEN 325 MG TABLET 650 MG PO ×2 (06:42→13:44)
[2019-10-10 07:40] LABS: Hematocrit 28.1 % (37.0-47.0); Hemoglobin 8.6 g/dL (12.0-15.0); Mean Corpuscular HGB Conc 30.6 g/dl (32-36); Mean Corpuscular Hemoglobin 28.3 pg (26-34); Mean Corpuscular Volume 92.4 fl (80-100); Mean Platelet Volume 10.5 fl (7.4-10.4); Platelet Count Result 126 k/mm3 (150-375); Red Blood Count 3.04 M/mm3 (4.2-5.4); Red Cell Distribution Width 19.9 % (11.5-14.5); White Blood Count 10.7 K/mm3 (4.5-10.0)
[2019-10-10 08:28] LABS: Blood Urea Nitrogen 23 mg/dL (7-17); CRP 17.9 mg/dL (<1.0); Carbon Dioxide 30 mmol/L (22-30); Chloride 101 mmol/L (98-107); Estimated CRCL calculation 16 ml/min; Estimated Glomerular Filt Rate 12; Glucose 95 mg/dL (65-105); Potassium 3.3 mmol/L (3.4-5.0); Sodium 137 mmol/L (137-145)
[2019-10-10 08:44] LABS: Glucose Point of Care 105 (65-105)
[2019-10-10] MEDS: FAMOTIDINE 20 MG TABLET PO ×2 (09:30→21:55)
[2019-10-10] MEDS: SACCHAROMYCES BOULARDII 250 MG CAPSULE PO ×2 (09:30→17:40)
[2019-10-10] MEDS: METOPROLOL TARTRATE 25 MG TABLET PO ×2 (09:30→21:55)
[2019-10-10] MEDS: ASPIRIN 81 MG ENTERIC TABLET PO (09:31)
[2019-10-10] MEDS: CHOLESTYRAMINE LIGHT 4 GM POWD.PACK PO ×2 (09:31→17:40)
[2019-10-10] MEDS: AMIODARONE HCL 200 MG TABLET PO (09:31)
[2019-10-10] MEDS: TOLNAFTATE 1% POWDER 45 GM BTL 1 APPLIC TOPICAL ×2 (09:34→22:04)
--- NOTE | 2019-10-10 10:13 | PCOTNOTE ---
Attempted to see patient this am, however nursing reported decline in medical status. Per RN, pt very drowsy with decreased BP, and patient was put on CPAP at this time. Pt not seen this am for this reason.
--- NOTE | 2019-10-10 11:38 | P.PNIM_ITS ---
Progress Note: A&P Assessment and Plan (1) C. difficile colitis: Code(s): A04.72 - Enterocolitis due to Clostridium difficile, not specified as recurrent Status: Acute Assessment and Plan: * Given recent C diff, likely this is a recurrence. Patient was not retested. * Fidaxomicin first dose 4/3 PM and completed 10/06 * Vancomycin Day 3 of 14 then with plan for tapering dose of vancomycin * Clinically improving each day * 10/06 CT abd/pel c/w uncomplicated colitis * Currently on Questran and Florastor (2) Atrial fibrillation with RVR: Code(s): I48.91 - Unspecified atrial fibrillation Status: Acute Assessment and Plan: * 10/05 Cardiology changed to po amiodarone 10/05 but back to rapid afib so put back on IV; Changed to oral Amio today * 10/05 Fluid bolus for hypotension * Echo 09/03/19 with LVEF 65-70%, severe pulmonary HTN (60mmHg) * continue ASA with high risk of bleed with full anticoagulation due to colitis (3) End-stage renal disease on hemodialysis: Code(s): N18.6 - End stage renal disease; Z99.2 - Dependence on renal dialysis Status: Acute Assessment and Plan: * Mild fluid overloaded 10/01 as evidence by physical exam and chest x-ray. * Continue HD to control fluid status * Appreciate Nephrology input (4) Chronic anemia: Code(s): D64.9 - Anemia, unspecified Status: Acute Assessment and Plan: * HH low but stable in the 8-9 range * Likely anemia of chronic kidney disease * Epogen per renal (5) Suspected sleep apnea: Code(s): R29.818 - Other symptoms and signs involving the nervous system Status: Acute Assessment and Plan: * Pulmonology recommends BiPAP, 14/5 with a rate of 14, to be used while sleeping. * Patient is awaiting formal outpatient polysomnogram. (6) Type 2 diabetes mellitus: Qualifiers: Diabetes mellitus complication status: with hyperglycemia Diabetes mellitus mcfp insulin use: with long term care pharmacist use Qualified Code(s): E11.65 - Type 2 diabetes mellitus with hyperglycemia; Z79.4 - nursing home (current) use of insulin Code(s): E11.9 - Type 2 diabetes mellitus without complications Status: Acute Assessment and Plan: * Recent A1c 6.1% * Glucose reviewed on 10/10/19 and remains well controlled * Sliding scale insulin, Accu-Cheks, and hypoglycemic protocol. (7) Hypertension: Qualifiers: Hypertension type: essential hypertension Qualified Code(s): I10 - Essential (primary) hypertension Code(s): I10 - Essential (primary) hypertension Status: Acute Assessment and Plan: * BP reviewed on 10/10/19 and well controlled * Continue metoprolol (8) Sepsis: Qualifiers: Sepsis acute organ dysfunction status: without acute organ dysfunction Sepsis type: sepsis due to unspecified organism Qualified Code(s): A41.9 - Sepsis, unspecified organism Code(s): A41.9 - Sepsis, unspecified organism Status: Acute Assessment and Plan: * Present on admission and supported by relative hypotension (responsive to IV fluids), fever, and leukocytosis in the setting of C diff colitis. * Continue rx of c diff (9) Pulmonary hypertension: Code(s): I27.20 - Pulmonary hypertension, unspecified Status: Acute Assessment and Plan: * Noted by Echo in August showing Severe pulm HTN with pulmonary arterial systolic pressure 60mmHg * Continue CPAP at night, with naps and prn (10) Cirrhosis:
--- NOTE | 2019-10-10 11:38 | PM.IMPN ---
Progress Note: A&P Assessment and Plan (1) C. difficile colitis: Code(s): A04.72 - Enterocolitis due to Clostridium difficile, not specified as recurrent Status: Acute Assessment and Plan: Given recent C diff, likely this is a recurrence. Patient was not retested. Fidaxomicin first dose 4/3 PM and completed 10/06 Vancomycin Day 3 of then with plan for tapering dose of vancomycin Clinically improving each day 10/06 CT abd/pel c/w uncomplicated colitis Currently on Questran and Florastor (2) Atrial fibrillation with RVR: Code(s): I48.91 - Unspecified atrial fibrillation Status: Acute Assessment and Plan: 10/05 Cardiology changed to po amiodarone 10/05 but back to rapid afib so put back on IV; Changed to oral Amio today 10/05 Fluid bolus for hypotension Echo 09/03/19 with LVEF 65-70%, severe pulmonary HTN (60mmHg) continue ASA with high risk of bleed with full anticoagulation due to colitis (3) End-stage renal disease on hemodialysis: Code(s): N18.6 - End stage renal disease; Z99.2 - Dependence on renal dialysis Status: Acute Assessment and Plan: Mild fluid overloaded 10/01 as evidence by physical exam and chest x-ray. Continue HD -- to control fluid status Appreciate Nephrology input (4) Chronic anemia: Code(s): D64.9 - Anemia, unspecified Status: Acute Assessment and Plan: HH low but stable in the 8-9 range Likely anemia of chronic kidney disease Epogen per renal (5) Suspected sleep apnea: Code(s): R29.818 - Other symptoms and signs involving the nervous system Status: Acute Assessment and Plan: Pulmonology recommends BiPAP, 14/5 with a rate of 14, to be used while sleeping. Patient is awaiting formal outpatient polysomnogram. (6) Type 2 diabetes mellitus: Qualifiers: Diabetes mellitus complication status: with hyperglycemia Diabetes mellitus nursing home insulin use: with middle or intermediate school principal use Qualified Code(s): E11.65 - Type 2 diabetes mellitus with hyperglycemia; Z79.4 - terminal gauger (current) use of insulin Code(s): E11.9 - Type 2 diabetes mellitus without complications Status: Acute Assessment and Plan: Recent A1c 6.1% Glucose reviewed on 10/10/19 and remains well controlled Sliding scale insulin, Accu-Cheks, and hypoglycemic protocol. (7) Hypertension: Qualifiers: Hypertension type: essential hypertension Qualified Code(s): I10 - Essential (primary) hypertension Code(s): I10 - Essential (primary) hypertension Status: Acute Assessment and Plan: BP reviewed on 10/10/19 and well controlled Continue metoprolol (8) Sepsis: Qualifiers: Sepsis acute organ dysfunction status: without acute organ dysfunction Sepsis type: sepsis due to unspecified organism Qualified Code(s): A41.9 - Sepsis, unspecified organism Code(s): A41.9 - Sepsis, unspecified organism Status: Acute Assessment and Plan: Present on admission and supported by relative hypotension (responsive to IV fluids), fever, and leukocytosis in the setting of C diff colitis. Continue rx of c diff (9) Pulmonary hypertension: Code(s): I27.20 - Pulmonary hypertension, unspecified Status: Acute Assessment and Plan: Noted by Echo in August showing Severe pulm HTN with pulmonary arterial systolic pressure 60mmHg Continue CPAP at night, with naps and prn (10) Cirrhosis: Code(s): K74.60 - Unspecified cirrhosis of liver Status: Acute Assessment and Plan: As documented on CT Abd/pelvis Mild hypersplenism Chronic with unclear etiology , probable LAWRENCE Subjective Date/time seen: 10/10/19 11:38 Interval history: 69yo female with hx of CDiff admitted 09/26 with probable first recurrence of c diff colitis. Patietn complains of buttock pain but no CP or SOB. No abd pain today. Still with Hannah
--- NOTE | 2019-10-10 11:40 | PCPTNOTE ---
The PT treatment was unable to be completed this morning due to change in medical status. Will continue per Plan of Care frequency and duration.
[2019-10-10 12:05] LABS: Glucose Point of Care 105 (65-105)
--- NOTE | 2019-10-10 12:43 | P.PNNP_ITS ---
Progress Note: A&P Assessment and Plan (1) Dependence on renal dialysis: Code(s): Z99.2 - Dependence on renal dialysis Status: Acute Assessment and Plan: * JESSICA/ARF on last hospitalization [due to IV diuretics, pre-renal factors, and infection (C. diff colitis + UTI)] * unfortunately, remains dialysis dependent at this time * unclear if recovery will occur but had CKD stage IV at baseline (creatinine ~ 1.8 - 2.2 from HTN/DM/vascular dz) * follow trend of UOP and creatinine on the possibility of renal recovery * HD tomorrow and continue HD on // schedule (2) C. difficile colitis: Code(s): A04.72 - Enterocolitis due to Clostridium difficile, not specified as recurrent Status: Acute Assessment and Plan: * clinically improvement noted: - less abominal pain - better appetite * on po vancomycin - WBC improving * repeat CT of abdomen/pelvis with results noted * continue supportive therapy (3) Anemia: Qualifiers: Anemia type: iron deficiency Iron deficiency anemia type: unspecified iron deficiency Qualified Code(s): D50.9 - Iron deficiency anemia, unspecified Code(s): D64.9 - Anemia, unspecified Status: Chronic Assessment and Plan: * due to #1, chronic infection/inflammation, and possible SADAF resistance * follow trend of H/H * Epogen with HD (4) Atrial fibrillation with RVR: Code(s): I48.91 - Unspecified atrial fibrillation Status: Acute Assessment and Plan: * Cardiology following * continue rate control strategy * holding off on anticoagulation at this time given acute medical issues (5) Hypertension: Qualifiers: Hypertension type: essential hypertension Qualified Code(s): I10 - Essential (primary) hypertension Code(s): I10 - Essential (primary) hypertension Status: Acute Assessment and Plan: * fluctuates in general * fluid removal as tolerated * follow trend of hemodynamics (6) UTI (urinary tract infection): Qualifiers: Hematuria presence: without hematuria Urinary tract infection type: site unspecified Qualified Code(s): N39.0 - Urinary tract infection, site not specified Code(s): N39.0 - Urinary tract infection, site not specified Status: Acute Assessment and Plan: * urine culture with gram negative bacilli * will defer to Infectious Disease regarding treatment (7) Type 2 diabetes mellitus: Qualifiers: Diabetes mellitus complication status: with hyperglycemia Diabetes mellitus intermediate insulin use: with intermediate accountant use Qualified Code(s): E11.65 - Type 2 diabetes mellitus with hyperglycemia; Z79.4 - correction (current) use of insulin Code(s): E11.9 - Type 2 diabetes mellitus without complications Status: Acute Assessment and Plan: * follow accuchecks * on SSI Will continue to follow. Subjective Date/time seen: 10/10/19 12:43 Tolerated dialysis treatment yesterday without any issue or problems -- able to tolerate better fluid removal/ultrafiltration as well; shortness of breath seems better today in comparison to yesterday; major complaint is that of fatigue/weakness and significant discomfort with rectal tube. Exam Narrative: Exam Narrative: General: WD/WN female in NAD Heart: normal S1 and S2; no rub Lungs: coarse with decreased breath sounds Abdomen: soft, nondistended, less TTP; positive bowel sounds Extremities: no cyanosis or clubbing; trace edema Skin: no rash or nodules
--- NOTE | 2019-10-10 12:43 | PM.PNNEP ---
Progress Note: A&P Assessment and Plan (1) Dependence on renal dialysis: Code(s): Z99.2 - Dependence on renal dialysis Status: Acute Assessment and Plan: JESSICA/ARF on last hospitalization [due to IV diuretics, pre-renal factors, and infection (C. diff colitis + UTI)] unfortunately, remains dialysis dependent at this time unclear if recovery will occur but had CKD stage IV at baseline (creatinine ~ 1.8 - 2.2 from HTN/DM/vascular dz) follow trend of UOP and creatinine on the possibility of renal recovery HD tomorrow and continue HD on M/W/F schedule (2) C. difficile colitis: Code(s): A04.72 - Enterocolitis due to Clostridium difficile, not specified as recurrent Status: Acute Assessment and Plan: clinically improvement noted: - less abominal pain - better appetite on po vancomycin - WBC improving repeat CT of abdomen/pelvis with results noted continue supportive therapy (3) Anemia: Qualifiers: Anemia type: iron deficiency Iron deficiency anemia type: unspecified iron deficiency Qualified Code(s): D50.9 - Iron deficiency anemia, unspecified Code(s): D64.9 - Anemia, unspecified Status: Chronic Assessment and Plan: due to #1, chronic infection/inflammation, and possible SADAF resistance follow trend of H/H Epogen with HD (4) Atrial fibrillation with RVR: Code(s): I48.91 - Unspecified atrial fibrillation Status: Acute Assessment and Plan: Cardiology following continue rate control strategy holding off on anticoagulation at this time given acute medical issues (5) Hypertension: Qualifiers: Hypertension type: essential hypertension Qualified Code(s): I10 - Essential (primary) hypertension Code(s): I10 - Essential (primary) hypertension Status: Acute Assessment and Plan: fluctuates in general fluid removal as tolerated follow trend of hemodynamics (6) UTI (urinary tract infection): Qualifiers: Hematuria presence: without hematuria Urinary tract infection type: site unspecified Qualified Code(s): N39.0 - Urinary tract infection, site not specified Code(s): N39.0 - Urinary tract infection, site not specified Status: Acute Assessment and Plan: urine culture with gram negative bacilli will defer to Infectious Disease regarding treatment (7) Type 2 diabetes mellitus: Qualifiers: Diabetes mellitus complication status: with hyperglycemia Diabetes mellitus alf insulin use: with alf use Qualified Code(s): E11.65 - Type 2 diabetes mellitus with hyperglycemia; Z79.4 - keno terminal operator (current) use of insulin Code(s): E11.9 - Type 2 diabetes mellitus without complications Status: Acute Assessment and Plan: follow accuchecks on SSI Will continue to follow. Subjective Date/time seen: 10/10/19 12:43 Tolerated dialysis treatment yesterday without any issue or problems -- able to tolerate better fluid removal/ultrafiltration as well; shortness of breath seems better today in comparison to yesterday; major complaint is that of fatigue/weakness and significant discomfort with rectal tube. Exam Narrative: Exam Narrative: General: WD/WN female in NAD Heart: normal S1 and S2; no rub Lungs: coarse with decreased breath sounds Abdomen: soft, nondistended, less TTP; positive bowel sounds Extremities: no cyanosis or clubbing; trace edema Skin: no rash or nodules Objective Data Vital Signs Vital Signs: Vital Signs Temp Pulse Resp BP Pulse Ox 10/10/19 12:03 64 21 H 133/56 L 99 10/10/19 10:19 36.3 C L 56 L 21 H 122/30 L 92 10/10/19 09:31 66 10/10/19 09:30 66 10/10/19 09:20 68 18 10/10/19 09:12 66 18 93 10/10/19 06:00 36.4 C L 64 18 122/54 L 96 10/10/19 01:55 90 26 H 96 10/10/19 01:52 90 18 10/10/19 01:42 88 18 10/09/19 22:00 36.8 C 8
--- NOTE | 2019-10-10 14:43 | PCOTNOTE ---
Attempted to see patient this pm, however patient declined reporting 10/10 pain. I don't feel like it. I can't even concentrate. RN notified of patient's pain report.
--- NOTE | 2019-10-10 15:08 | WPDINFPN2 ---
Progress Note: A&P Assessment and Plan (1) C. difficile colitis: Code(s): A04.72 - Enterocolitis due to Clostridium difficile, not specified as recurrent Status: Acute Assessment and Plan: 1. Relapsed C diff infection, WBC trending back down, otherwise without complication. Stool in bag: brown and no form 2. Cirrhosis 3. CRF on HD 4. Dyspnea, possibly related to her chronic renal failure. Doubt HCAP 5. Pyuria, no UTI REC (C diff treatment day # 14). tid Vanc # 3 /14 with taper thereafter. Subjective Date/time seen: 10/10/19 15:08 Interval history: on PPV, no new complaints Exam Narrative: Exam Narrative: afebrile Const: General: no acute distress Other: obese GI: Inspection: non-distended GI Palp: Yes Soft to palpation and No Tenderness to palpation present (GI) Objective Data Vital Signs Vital Signs: Vital Signs - 24 hr 10/09/19 15:15 10/09/19 15:30 10/09/19 15:45 Temperature Pulse Rate 96 61 64 Respiratory Rate Blood Pressure 137/23 L 143/17 H 91/56 L Pulse Oximetry 10/09/19 16:00 10/09/19 16:15 10/09/19 16:30 Temperature Pulse Rate 73 51 L 76 Respiratory Rate Blood Pressure 114/42 L 113/42 L 106/52 L Pulse Oximetry 10/09/19 16:52 10/09/19 17:05 10/09/19 19:48 Temperature 36.3 C L Pulse Rate 84 72 80 Respiratory Rate 18 18 Blood Pressure 94/30 L 110/27 L Pulse Oximetry 10/09/19 19:58 10/09/19 20:00 10/09/19 22:00 Temperature 36.8 C Pulse Rate 83 82 Respiratory Rate 18 18 Blood Pressure 101/42 L Pulse Oximetry 94 96 10/10/19 01:42 10/10/19 01:52 10/10/19 01:55 Temperature Pulse Rate 88 90 90 Respiratory Rate 18 18 26 H Blood Pressure Pulse Oximetry 96 10/10/19 06:00 10/10/19 09:12 10/10/19 09:20 Temperature 36.4 C L Pulse Rate 64 66 68 Respiratory Rate 18 18 18 Blood Pressure 122/54 L Pulse Oximetry 96 93 10/10/19 09:30 10/10/19 09:31 10/10/19 10:19 Temperature 36.3 C L Pulse Rate 66 66 56 L Respiratory Rate 21 H Blood Pressure 122/30 L Pulse Oximetry 92 10/10/19 12:03 10/10/19 13:55 10/10/19 13:58 Temperature Pulse Rate 64 61 60 Respiratory Rate 21 H 26 H 23 H Blood Pressure 133/56 L Pulse Oximetry 99 92 10/10/19 14:05 10/10/19 14:06 Temperature Pulse Rate 71 Respiratory Rate 18 Blood Pressure Pulse Oximetry 92 Intake/Output Intake/Output: Intake & Output 10/07/19 10/08/19 10/09/19 10/10/19 23:59 23:59 23:59 23:59 Intake Total 1630 577 570 240 Output Total 1700 3850 100 Balance -70 577 -5980 140 Meds/Results Medications: Active Medications Generic Name Dose Route Start Last Admin Trade Name Freq PRN Reason Stop Dose Admin Acetaminophen 650 mg 09/30/19 01:35 10/10/19 13:44 Tylenol Tablet PO 650 mg Q4H PRN Administration Mild Pain (1-3) or Fever Albuterol 5 mg 10/03/19 14:00 10/10/19 13:54 Albuterol Sulf Neb 2.5mg/0.5ml INHALATION 5 mg Q6HRT DEJON Administration Alprazolam 0.5 mg 09/27/19 21:21 10/07/19 19:57 Xanax PO 0.5 mg TID PRN Administration Anxiety Amiodarone HCl 200 mg 10/10/19 08:00 10/10/19 09:31 Pacerone PO 200 mg DAILY@0800 DEJON Administration Aspirin 81 mg 09/28/19 09:00 10/10/19 09:31 Aspirin Ec PO 81 mg DAILY DEJON Administration Cholestyramine Resin 4 gm 09/30/19 21:00 10/10/19 09:31 Questran Light Packet PO 4 gm BID@1000,1800 DEJON Administration Dextrose 12.5 gm 09/27/19 21:09 Dextrose 50% Syringe IV PUSH PRN PRN Hypoglycemia Protocol Epoetin Cameron 10,000 units 09/30/19 11:00 10/09/19 15:57 Epogen IV PUSH 10,000 units MOWEFR DEJON Administration Famotidine 20 mg 09/28/19 09:00 10/10/19 09:30 Pepcid PO 20 mg Q12HR DEJON Administration Glucagon 1 mg 09/27/19 21:09 Glucagon For Inj IM PRN PRN Hypoglycemia Protocol Glucose 15 gm 09/27/19 21:09 Glutose 15 PO PRN PRN Hyp
[2019-10-10 21:13] LABS: Glucose Point of Care 131 (65-105)
[2019-10-10 21:13] LABS: Glucose Point of Care 141 (65-105)
[2019-10-10] MEDS: SIMVASTATIN 20 MG TABLET 40 MG PO (21:55)
[2019-10-10] MEDS: ALPRAZOLAM 0.5 MG TABLET PO (22:17)
[2019-10-11] VITALS (35 sets, daily range): BP systolic 89–127; BP diastolic 34–57; PULSE 55–130; RESP 16–24; TEMP 36.1–37; O2SAT 92–99
[2019-10-11] MEDS: ALBUTEROL SULFATE NEB 2.5 MG/0.5 ML INH 5 MG INHALATION ×4 (01:10→20:18)
[2019-10-11] MEDS: IPRATROPIUM BR 0.02% INH SOLN 0.5 MG/2.5 ML VIAL INHALATION ×4 (01:10→20:18)
[2019-10-11 04:52] LABS: Hematocrit 28.5 % (37.0-47.0); Hemoglobin 8.3 g/dL (12.0-15.0); Mean Corpuscular HGB Conc 29.1 g/dl (32-36); Mean Corpuscular Hemoglobin 27.7 pg (26-34); Mean Platelet Volume 10.5 fl (7.4-10.4); Platelet Count Result 123 k/mm3 (150-375); Red Cell Distribution Width 19.8 % (11.5-14.5); White Blood Count 9.1 K/mm3 (4.5-10.0)
[2019-10-11 05:18] LABS: Blood Urea Nitrogen 33 mg/dL (7-17); Calcium 7.8 mg/dL (8.4-10.2); Carbon Dioxide 28 mmol/L (22-30); Chloride 102 mmol/L (98-107); Estimated CRCL calculation 14 ml/min; Estimated Glomerular Filt Rate 10; Glucose 96 mg/dL (65-105); Potassium 3.4 mmol/L (3.4-5.0); Sodium 136 mmol/L (137-145)
[2019-10-11] MEDS: VANCOMYCIN ORAL 125 MG/2.5 ML SYRUP PO ×3 (05:32→21:10)
[2019-10-11 05:55] LABS: CRP 13.5 mg/dL (<1.0)
[2019-10-11 07:55] LABS: Glucose Point of Care 101 (65-105)
[2019-10-11] MEDS: AMIODARONE HCL 200 MG TABLET PO (07:59)
[2019-10-11] MEDS: FAMOTIDINE 20 MG TABLET PO ×2 (08:00→21:08)
[2019-10-11] MEDS: METOPROLOL TARTRATE 25 MG TABLET PO ×2 (08:00→21:10)
[2019-10-11] MEDS: ASPIRIN 81 MG ENTERIC TABLET PO (08:01)
[2019-10-11] MEDS: SACCHAROMYCES BOULARDII 250 MG CAPSULE PO ×2 (08:01→19:28)
[2019-10-11] MEDS: ACETAMINOPHEN 325 MG TABLET 650 MG PO (08:07)
--- NOTE | 2019-10-11 09:07 | PCSTNOTE ---
Please refer to the Bedside Swallow Evaluation in the EMR. Please note, silent aspiration cannot be ruled out at bedside.
[2019-10-11] MEDS: CHOLESTYRAMINE LIGHT 4 GM POWD.PACK PO ×2 (10:50→19:27)
[2019-10-11] MEDS: EPOETIN ALFA 10,000 UNITS/ML VIAL 10000 UNITS IV PUSH (10:50)
--- NOTE | 2019-10-11 10:53 | PCNFU ---
Nutrition Follow-Up Complete: Inadequate oral intake related to decreased appetite likely due to multiple health conditions as evidenced by 11.8% weight loss x 2 months and current average intake of 30%. Goal: Patient to consume 50% of meals/supplements or greater. Patient has not met goal. We will continue with current goal. Pt current nutrition is Renal Dialysis. Nutrition recommendation: Agree Last recorded weight is 123.3 kg. Bowel Motility:fecal tube Labs Reviewed:Cr 4.4,BUN 33,GFR 10, Na 136 Meds Noted:Almazo, Questran, Florastor,Novolog Additional Notes: spoke with nursing today for nutrition follow up due to COVID 19 precautions. Patient had a bedside swallow today-passed with regular consistencies. Oral Intakes have been poor: refusing meals,10-30% of meals. Diet supplements: Nepro BID for an additional 425 kcals and 19 gms of protein. Plans for Dialysis today and M/W/F schedule. Monitoring: Follow up every 3 days.
[2019-10-11] MEDS: TOLNAFTATE 1% POWDER 45 GM BTL 1 APPLIC TOPICAL ×2 (10:56→21:13)
[2019-10-11 11:33] LABS: Glucose Point of Care 143 (65-105)
--- NOTE | 2019-10-11 14:11 | P.PNIM_ITS ---
Progress Note: A&P Assessment and Plan (1) C. difficile colitis: Code(s): A04.72 - Enterocolitis due to Clostridium difficile, not specified as recurrent Status: Acute Assessment and Plan: * Given recent C diff, likely this is a recurrence. Patient was not retested. * CT Abd/Pelvis 09/26 showing progression of diffuse colitis (compared to 08/31/19) * Fidaxomicin first dose 09/26 PM and completed 10/06 * Vancomycin Day 4 of then with plans for tapering dose of vancomycin after 14 days of treatment * CT Abd/pevis 10/06 c/w uncomplicated colitis * Currently on Questran and Florastor as well * Will attempt to remove fecal containment system and monitor stool output * Discussed with ID. Appreciate ID input. (2) Atrial fibrillation with RVR: Code(s): I48.91 - Unspecified atrial fibrillation Status: Acute Assessment and Plan: * Echo 09/03/19 with LVEF 65-70%, severe pulmonary HTN (60mmHg) * [id number] = 6. * Cardiology changed to po amiodarone 10/05 but back to rapid afib so put back on IV; Changed to oral Amio 10/09 * 10/05 Fluid bolus for hypotension * Continue ASA with high risk of bleed with full anticoagulation due to colitis (3) End-stage renal disease on hemodialysis: Code(s): N18.6 - End stage renal disease; Z99.2 - Dependence on renal dialysis Status: Acute Assessment and Plan: * Mild fluid overloaded 10/01 as evidence by physical exam and chest x-ray. * Continue HD -- to control fluid status; Due for HD today. * Appreciate Nephrology input * UA noted with pyuria with positive UCx showing ESBL Klebsiella and EColi not felt to be real infection. * Remove Mendez. (4) Chronic anemia: Code(s): D64.9 - Anemia, unspecified Status: Acute Assessment and Plan: * Hgb low but stable in the 8-9 range * Likely anemia of chronic kidney disease * Epogen per renal (5) Suspected sleep apnea: Code(s): R29.818 - Other symptoms and signs involving the nervous system Status: Acute Assessment and Plan: * Pulmonology recommends BiPAP, 06/11 with a rate of 14 * Continue BiPAP at night, with naps and as needed. * Patient is awaiting formal outpatient polysomnogram. (6) Type 2 diabetes mellitus: Qualifiers: Diabetes mellitus complication status: with hyperglycemia Diabetes mellitus skilled nursing insulin use: with skilled nursing use Qualified Code(s): E11.65 - Type 2 diabetes mellitus with hyperglycemia; Z79.4 - [facility] (current) use of insulin Code(s): E11.9 - Type 2 diabetes mellitus without complications Status: Acute Assessment and Plan: * Recent A1c 6.1% * Glucose reviewed on 10/11/19 and remains well controlled * Sliding scale insulin, Accu-Cheks, and hypoglycemic protocol. * Decrease frequency of glucose checks (7) Hypertension: Qualifiers: Hypertension type: essential hypertension Qualified Code(s): I10 - Essential (primary) hypertension Code(s): I10 - Essential (primary) hypertension Status: Acute Assessment and Plan: * BP reviewed on 10/11/19 and remains well controlled * Continue metoprolol (8) Sepsis: Qualifiers: Sepsis acute organ dysfunction status: without acute organ dysfunction Sepsis type: sepsis due to unspecified organism Qualified Code(s): A41.9 - Sepsis, unspecified organism Code(s): A41.9 - Sepsis, unspecified organism Status: Acute Assessment and Plan: * Present on admission and supported by relative hypotension (respon
--- NOTE | 2019-10-11 14:11 | PM.IMPN ---
Progress Note: A&P Assessment and Plan (1) C. difficile colitis: Code(s): A04.72 - Enterocolitis due to Clostridium difficile, not specified as recurrent Status: Acute Assessment and Plan: Given recent C diff, likely this is a recurrence. Patient was not retested. CT Abd/Pelvis 09/26 showing progression of diffuse colitis (compared to 08/31/19) Fidaxomicin first dose 4 PM and completed 10/06 Vancomycin Day then with plans for tapering dose of vancomycin after [address] Abd/pevis 10/06 c/w uncomplicated colitis Currently on Questran and Florastor as well Will attempt to remove fecal containment system and monitor stool output Discussed with ID. Appreciate ID input. (2) Atrial fibrillation with RVR: Code(s): I48.91 - Unspecified atrial fibrillation Status: Acute Assessment and Plan: Echo 09/03/19 with LVEF 65-70%, severe pulmonary HTN (60mmHg) [id number] = 6. Cardiology changed to po amiodarone 10/05 but back to rapid afib so put back on IV; Changed to oral Amio 10/09 10/05 Fluid bolus for hypotension Continue ASA with high risk of bleed with full anticoagulation due to colitis (3) End-stage renal disease on hemodialysis: Code(s): N18.6 - End stage renal disease; Z99.2 - Dependence on renal dialysis Status: Acute Assessment and Plan: Mild fluid overloaded 10/01 as evidence by physical exam and chest x-ray. Continue HD to control fluid status; Due for HD today. Appreciate Nephrology input UA noted with pyuria with positive UCx showing ESBL Klebsiella and EColi not felt to be real infection. Remove Mendez. (4) Chronic anemia: Code(s): D64.9 - Anemia, unspecified Status: Acute Assessment and Plan: Hgb low but stable in the 8-9 range Likely anemia of chronic kidney disease Epogen per renal (5) Suspected sleep apnea: Code(s): R29.818 - Other symptoms and signs involving the nervous system Status: Acute Assessment and Plan: Pulmonology recommends BiPAP, 14/ with a rate of 14 Continue BiPAP at night, with naps and as needed. Patient is awaiting formal outpatient polysomnogram. 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 Decrease frequency of glucose checks (7) Hypertension: Qualifiers: Hypertension type: essential hypertension Qualified Code(s): I10 - Essential (primary) hypertension Code(s): I10 - Essential (primary) hypertension Status: Acute Assessment and Plan: BP reviewed on 10/11/19 and remains well controlled Continue metoprolol (8) Sepsis: Qualifiers: Sepsis acute organ dysfunction status: without acute organ dysfunction Sepsis type: sepsis due to unspecified organism Qualified Code(s): A41.9 - Sepsis, unspecified organism Code(s): A41.9 - Sepsis, unspecified organism Status: Acute Assessment and Plan: Present on admission and supported by relative hypotension (responsive to IV fluids), fever, and leukocytosis in the setting of C diff colitis. Continue Rx for CDiff (9) Pulmonary hypertension: Code(s): I27.20 - Pulmonary hypertension, unspecified Status: Acute Assessment and Plan: Noted by Echo in August showing Severe pulm HTN with pulmonary arterial systolic pressure 60mmHg Continue BiPAP at night, with naps and prn (10) Cirrhosis: Code(s): K74.60 -
--- NOTE | 2019-10-11 14:19 | P.PNNP_ITS ---
Progress Note: A&P Assessment and Plan (1) Dependence on renal dialysis: Code(s): Z99.2 - Dependence on renal dialysis Status: Acute Assessment and Plan: * JESSICA/ARF on last hospitalization [due to IV diuretics, pre-renal factors, and infection (C. diff colitis + UTI)] * unfortunately, remains dialysis dependent at this time * unclear if recovery will occur but had CKD stage IV at baseline (creatinine ~ 1.8 - 2.2 from HTN/DM/vascular dz) * follow trend of UOP and creatinine on the possibility of renal recovery * HD today and continue HD on // schedule (2) C. difficile colitis: Code(s): A04.72 - Enterocolitis due to Clostridium difficile, not specified as recurrent Status: Acute Assessment and Plan: * clinically improvement noted: - less abominal pain - better appetite * on po vancomycin - WBC improving * repeat CT of abdomen/pelvis with results noted * continue supportive therapy (3) Anemia: Qualifiers: Anemia type: iron deficiency Iron deficiency anemia type: unspecified iron deficiency Qualified Code(s): D50.9 - Iron deficiency anemia, unspecified Code(s): D64.9 - Anemia, unspecified Status: Chronic Assessment and Plan: * due to #1, chronic infection/inflammation, and possible SADAF resistance * follow trend of H/H * Epogen with HD (4) Atrial fibrillation with RVR: Code(s): I48.91 - Unspecified atrial fibrillation Status: Acute Assessment and Plan: * Cardiology following * continue rate control strategy * holding off on anticoagulation at this time given acute medical issues (5) Hypertension: Qualifiers: Hypertension type: essential hypertension Qualified Code(s): I10 - Essential (primary) hypertension Code(s): I10 - Essential (primary) hypertension Status: Acute Assessment and Plan: * fluctuates in general * fluid removal as tolerated * follow trend of hemodynamics (6) UTI (urinary tract infection): Qualifiers: Hematuria presence: without hematuria Urinary tract infection type: site unspecified Qualified Code(s): N39.0 - Urinary tract infection, site not specified Code(s): N39.0 - Urinary tract infection, site not specified Status: Acute Assessment and Plan: * urine culture results noted * not felt to be a true infection * no further antibiotic for treatment (7) Type 2 diabetes mellitus: Qualifiers: Diabetes mellitus complication status: with hyperglycemia Diabetes mellitus manager terminal insulin use: with snf use Qualified Code(s): E11.65 - Type 2 diabetes mellitus with hyperglycemia; Z79.4 - [facility] (current) use of insulin Code(s): E11.9 - Type 2 diabetes mellitus without complications Status: Acute Assessment and Plan: * follow accuchecks * on SSI Will continue to follow. Subjective Date/time seen: 10/11/19 14:19 Major complaint is that of fatigue and generalized weakness; no apparent acute distress voiced; some mild shortness of breath at this time as well; due for dialysis this afternoon. Exam Narrative: Exam Narrative: General: WD/WN female in NAD Heart: normal S1 and S2; no rub Lungs: coarse with decreased breath sounds Abdomen: soft, nondistended, less TTP; positive bowel sounds Extremities: no cyanosis or clubbing; trace edema Skin: no rash or nodules Objective Data Vital Signs Vital Signs: Vital
--- NOTE | 2019-10-11 14:19 | PM.PNNEP ---
Progress Note: A&P Assessment and Plan (1) Dependence on renal dialysis: Code(s): Z99.2 - Dependence on renal dialysis Status: Acute Assessment and Plan: JESSICA/ARF on last hospitalization [due to IV diuretics, pre-renal factors, and infection (C. diff colitis + UTI)] unfortunately, remains dialysis dependent at this time unclear if recovery will occur but had CKD stage IV at baseline (creatinine ~ 1.8 - 2.2 from HTN/DM/vascular dz) follow trend of UOP and creatinine on the possibility of renal recovery HD today and continue HD on M//F schedule (2) C. difficile colitis: Code(s): A04.72 - Enterocolitis due to Clostridium difficile, not specified as recurrent Status: Acute Assessment and Plan: clinically improvement noted: - less abominal pain - better appetite on po vancomycin - WBC improving repeat CT of abdomen/pelvis with results noted continue supportive therapy (3) Anemia: Qualifiers: Anemia type: iron deficiency Iron deficiency anemia type: unspecified iron deficiency Qualified Code(s): D50.9 - Iron deficiency anemia, unspecified Code(s): D64.9 - Anemia, unspecified Status: Chronic Assessment and Plan: due to #1, chronic infection/inflammation, and possible SADAF resistance follow trend of H/H Epogen with HD (4) Atrial fibrillation with RVR: Code(s): I48.91 - Unspecified atrial fibrillation Status: Acute Assessment and Plan: Cardiology following continue rate control strategy holding off on anticoagulation at this time given acute medical issues (5) Hypertension: Qualifiers: Hypertension type: essential hypertension Qualified Code(s): I10 - Essential (primary) hypertension Code(s): I10 - Essential (primary) hypertension Status: Acute Assessment and Plan: fluctuates in general fluid removal as tolerated follow trend of hemodynamics (6) UTI (urinary tract infection): Qualifiers: Hematuria presence: without hematuria Urinary tract infection type: site unspecified Qualified Code(s): N39.0 - Urinary tract infection, site not specified Code(s): N39.0 - Urinary tract infection, site not specified Status: Acute Assessment and Plan: urine culture results noted not felt to be a true infection no further antibiotic for treatment (7) Type 2 diabetes mellitus: Qualifiers: Diabetes mellitus complication status: with hyperglycemia Diabetes mellitus retirement insulin use: with exterminator helper termite use Qualified Code(s): E11.65 - Type 2 diabetes mellitus with hyperglycemia; Z79.4 - superintendent container terminal (current) use of insulin Code(s): E11.9 - Type 2 diabetes mellitus without complications Status: Acute Assessment and Plan: follow accuchecks on SSI Will continue to follow. Subjective Date/time seen: 10/11/19 14:19 Major complaint is that of fatigue and generalized weakness; no apparent acute distress voiced; some mild shortness of breath at this time as well; due for dialysis this afternoon. Exam Narrative: Exam Narrative: General: WD/WN female in NAD Heart: normal S1 and S2; no rub Lungs: coarse with decreased breath sounds Abdomen: soft, nondistended, less TTP; positive bowel sounds Extremities: no cyanosis or clubbing; trace edema Skin: no rash or nodules Objective Data Vital Signs Vital Signs: Vital Signs Temp Pulse Resp BP Pulse Ox 10/11/19 13:18 60 24 H 10/11/19 13:10 61 24 H 10/11/19 13:09 61 24 H 99 10/11/19 08:53 116 H 20 10/11/19 08:45 127 H 20 97 10/11/19 08:07 36.4 C L 10/11/19 08:00 85 10/11/19 07:59 65 10/11/19 06:00 36.4 C L 65 16 127/45 L 94 10/11/19 01:22 64 20 94 10/11/19 01:10 66 20 10/10/19 22:00 36.5 C 111 H 18 123/50 L 96 10/10/19 21:55 64 10/10/19 21:30 22 H 94 10/10/19 20:13 94 0
--- NOTE | 2019-10-11 15:12 | WPDINFPN2 ---
Progress Note: A&P Assessment and Plan (1) C. difficile colitis: Code(s): A04.72 - Enterocolitis due to Clostridium difficile, not specified as recurrent Status: Acute Assessment and Plan: 1. Relapsed C diff infection, WBC down to normal today. No complication. 2. Cirrhosis 3. CRF on HD 4. Dyspnea. no HCAP 5. Pyuria, no UTI REC (C diff treatment day # 15). tid Vanc # 4 /14 with taper bid then daily thereafter. Discussed Subjective Date/time seen: 10/11/19 15:12 Interval history: just getting started on HD, no aspiration visualized. She feels better, denies dyspnea Exam Narrative: Exam Narrative: afebrile Const: General: no acute distress Eyes: General: appearance normal, both eyes and all related structures GI: Inspection: non-distended GI Palp: Yes Soft to palpation, No Tenderness to palpation present (GI) and No Guarding due to palpation present (GI) Other: flexiseal in place, but underneath covers Objective Data Vital Signs Vital Signs: Vital Signs - 24 hr 10/10/19 20:00 10/10/19 20:12 10/10/19 20:13 Temperature Pulse Rate 64 64 Respiratory Rate 20 20 Blood Pressure Pulse Oximetry 94 10/10/19 21:30 10/10/19 21:55 10/10/19 22:00 Temperature 36.5 C Pulse Rate 64 111 H Respiratory Rate 22 H 18 Blood Pressure 123/50 L Pulse Oximetry 94 96 10/11/19 01:10 10/11/19 01:22 10/11/19 06:00 Temperature 36.4 C L Pulse Rate 66 64 65 Respiratory Rate 20 20 16 Blood Pressure 127/45 L Pulse Oximetry 94 94 10/11/19 07:59 10/11/19 08:00 10/11/19 08:07 Temperature 36.4 C L Pulse Rate 65 85 Respiratory Rate Blood Pressure Pulse Oximetry 10/11/19 08:45 10/11/19 08:53 10/11/19 13:09 Temperature Pulse Rate 127 H 116 H 61 Respiratory Rate 20 20 24 H Blood Pressure Pulse Oximetry 97 99 10/11/19 13:10 10/11/19 13:18 Temperature Pulse Rate 61 60 Respiratory Rate 24 H 24 H Blood Pressure Pulse Oximetry Intake/Output Intake/Output: Intake & Output 10/08/19 10/09/19 10/10/19 10/11/19 23:59 23:59 23:59 23:59 Intake Total 579 159 800 195 Output Total 0056 700 350 Balance 577 -6386 100 -155 Meds/Results Medications: Active Medications Generic Name Dose Route Start Last Admin Trade Name Freq PRN Reason Stop Dose Admin Acetaminophen 650 mg 10/10/19 17:24 10/11/19 08:07 Tylenol Tablet PO 650 mg Q4H PRN Administration Mild Pain (1-5) Or Fever Albuterol 5 mg 10/03/19 14:00 10/11/19 13:05 Albuterol Sulf Neb 2.5mg/0.5ml INHALATION 5 mg Q6HRT DEJON Administration Alprazolam 0.5 mg 09/27/19 21:21 10/10/19 22:17 Xanax PO 0.5 mg TID PRN Administration Anxiety Amiodarone HCl 200 mg 10/10/19 08:00 10/11/19 07:59 Pacerone PO 200 mg DAILY@0800 DEJON Administration Aspirin 81 mg 09/28/19 09:00 10/11/19 08:01 Aspirin Ec PO 81 mg DAILY DEJON Administration Cholestyramine Resin 4 gm 09/30/19 21:00 10/11/19 10:50 Questran Light Packet PO 4 gm BID@1000,1800 DEJON Administration Dextrose 12.5 gm 09/27/19 21:09 Dextrose 50% Syringe IV PUSH PRN PRN Hypoglycemia Protocol Epoetin Cameron 10,000 units 09/30/19 11:00 10/11/19 10:50 Epogen IV PUSH 10,000 units MOWEFR DEJON Administration Famotidine 20 mg 09/28/19 09:00 10/11/19 08:00 Pepcid PO 20 mg Q12HR DEJON Administration Glucagon 1 mg 09/27/19 21:09 Glucagon For Inj IM PRN PRN Hypoglycemia Protocol Glucose 15 gm 09/27/19 21:09 Glutose 15 PO PRN PRN Hypoglycemia Protocol Dextrose 1,000 mls @ 100 mls/hr 09/27/19 21:09 Dextrose 5% 1,000 Ml IVPB PRN PRN Hypoglycemia Protocol Albumin Human 50 mls @ 999 mls/hr 10/09/19 04:12 Albutein IVPB 11/08/19 04:13 Q10M PRN HYPOTENSION Insulin Aspart 3 - 6 units 09/28/19 08:00 10/11/19 11:36 Novolog SUB-Q Not Given TIDWM DEJON Protocol Iprat
[2019-10-11] MEDS: HEPARIN SODIUM 1,000 UNITS/ML VIAL 6000 UNITS (18:56)
[2019-10-11] MEDS: SIMVASTATIN 20 MG TABLET 40 MG PO (21:08)
[2019-10-12] VITALS (8 sets, daily range): BP systolic 110–117; BP diastolic 48–52; PULSE 60–67; RESP 20–22; TEMP 36.1–36.4; O2SAT 91–96
[2019-10-12 00:36] LABS: Glucose Point of Care 191 (65-105)
[2019-10-12] MEDS: ALBUTEROL SULFATE NEB 2.5 MG/0.5 ML INH 5 MG INHALATION ×2 (01:48→08:12)
[2019-10-12] MEDS: IPRATROPIUM BR 0.02% INH SOLN 0.5 MG/2.5 ML VIAL INHALATION ×2 (01:48→08:12)
[2019-10-12] MEDS: VANCOMYCIN ORAL 125 MG/2.5 ML SYRUP PO ×2 (05:05→13:35)
[2019-10-12 05:15] LABS: Hematocrit 30.2 % (37.0-47.0); Mean Corpuscular HGB Conc 29.8 g/dl (32-36); Mean Corpuscular Volume 94.1 fl (80-100); Mean Platelet Volume 9.8 fl (7.4-10.4); Platelet Count Result 114 k/mm3 (150-375); Red Blood Count 3.21 M/mm3 (4.2-5.4); Red Cell Distribution Width 19.8 % (11.5-14.5); White Blood Count 9.2 K/mm3 (4.5-10.0)
[2019-10-12 05:42] LABS: Blood Urea Nitrogen 19 mg/dL (7-17); CRP 8.6 mg/dL (<1.0); Calcium 7.7 mg/dL (8.4-10.2); Carbon Dioxide 28 mmol/L (22-30); Chloride 101 mmol/L (98-107); Estimated CRCL calculation 21 ml/min; Estimated Glomerular Filt Rate 15; Glucose 86 mg/dL (65-105); Potassium 3.4 mmol/L (3.4-5.0); Sodium 134 mmol/L (137-145)
[2019-10-12 08:02] LABS: Glucose Point of Care 89 (65-105)
[2019-10-12] MEDS: SACCHAROMYCES BOULARDII 250 MG CAPSULE PO (08:56)
[2019-10-12] MEDS: TOLNAFTATE 1% POWDER 45 GM BTL 1 APPLIC TOPICAL (08:56)
[2019-10-12] MEDS: METOPROLOL TARTRATE 25 MG TABLET PO (08:56)
[2019-10-12] MEDS: ASPIRIN 81 MG ENTERIC TABLET PO (08:56)
[2019-10-12] MEDS: FAMOTIDINE 20 MG TABLET PO (08:56)
[2019-10-12] MEDS: AMIODARONE HCL 200 MG TABLET PO (08:57)
--- NOTE | 2019-10-12 10:08 | P.PNNP_ITS ---
Progress Note: A&P Assessment and Plan (1) Dependence on renal dialysis: Code(s): Z99.2 - Dependence on renal dialysis Status: Acute Assessment and Plan: * JESSICA/ARF on last hospitalization [due to IV diuretics, pre-renal factors, and infection (C. diff colitis + UTI)] * unfortunately, remains dialysis dependent at this time * unclear if recovery will occur but had CKD stage IV at baseline (creatinine ~ 1.8 - 2.2 from HTN/DM/vascular dz) * follow trend of UOP and creatinine on the possibility of renal recovery * HD yesterday and continue HD on // schedule (2) C. difficile colitis: Code(s): A04.72 - Enterocolitis due to Clostridium difficile, not specified as recurrent Status: Acute Assessment and Plan: * clinically improvement noted: - less abominal pain - better appetite * on po vancomycin - WBC improving * repeat CT of abdomen/pelvis with results noted * continue supportive therapy (3) Anemia: Qualifiers: Anemia type: iron deficiency Iron deficiency anemia type: unspecified iron deficiency Qualified Code(s): D50.9 - Iron deficiency anemia, unspecified Code(s): D64.9 - Anemia, unspecified Status: Chronic Assessment and Plan: * due to #1, chronic infection/inflammation, and possible SADAF resistance * follow trend of H/H * Epogen with HD (4) Atrial fibrillation with RVR: Code(s): I48.91 - Unspecified atrial fibrillation Status: Acute Assessment and Plan: * Cardiology following * continue rate control strategy * holding off on anticoagulation at this time given acute medical issues (5) Hypertension: Qualifiers: Hypertension type: essential hypertension Qualified Code(s): I10 - Essential (primary) hypertension Code(s): I10 - Essential (primary) hypertension Status: Acute Assessment and Plan: * fluctuates in general * fluid removal as tolerated * follow trend of hemodynamics (6) UTI (urinary tract infection): Qualifiers: Hematuria presence: without hematuria Urinary tract infection type: site unspecified Qualified Code(s): N39.0 - Urinary tract infection, site not specified Code(s): N39.0 - Urinary tract infection, site not specified Status: Acute Assessment and Plan: * urine culture results noted * not felt to be a true infection * no further antibiotic for treatment (7) Type 2 diabetes mellitus: Qualifiers: Diabetes mellitus complication status: with hyperglycemia Diabetes mellitus aerospace quality engineer insulin use: with aerospace quality engineer use Qualified Code(s): E11.65 - Type 2 diabetes mellitus with hyperglycemia; Z79.4 - teacher assistant (current) use of insulin Code(s): E11.9 - Type 2 diabetes mellitus without complications Status: Acute Assessment and Plan: * follow accuchecks * on SSI Will continue to follow. Subjective Date/time seen: 10/12/19 10:08 Tolerated dialysis yesterday without any issues or problems; no acute distress voiced; wants to go home (on discharge) but I discussed with that she will need to build up her strength before going home as she is quite deconditioned. Exam Narrative: Exam Narrative: General: WD/WN female in NAD Heart: normal S1 and S2; no rub Lungs: coarse with decreased breath sounds Abdomen: soft, nondistended, less TTP; positive bowel sounds Extremities: no cyanosis or clubbing; trace edema Skin: warm and dry Objective Data Vital Signs Vital Sig
--- NOTE | 2019-10-12 10:08 | PM.PNNEP ---
Progress Note: A&P Assessment and Plan (1) Dependence on renal dialysis: Code(s): Z99.2 - Dependence on renal dialysis Status: Acute Assessment and Plan: JESSICA/ARF on last hospitalization [due to IV diuretics, pre-renal factors, and infection (C. diff colitis + UTI)] unfortunately, remains dialysis dependent at this time unclear if recovery will occur but had CKD stage IV at baseline (creatinine ~ 1.8 - 2.2 from HTN/DM/vascular dz) follow trend of UOP and creatinine on the possibility of renal recovery HD yesterday and continue HD on //F schedule (2) C. difficile colitis: Code(s): A04.72 - Enterocolitis due to Clostridium difficile, not specified as recurrent Status: Acute Assessment and Plan: clinically improvement noted: - less abominal pain - better appetite on po vancomycin - WBC improving repeat CT of abdomen/pelvis with results noted continue supportive therapy (3) Anemia: Qualifiers: Anemia type: iron deficiency Iron deficiency anemia type: unspecified iron deficiency Qualified Code(s): D50.9 - Iron deficiency anemia, unspecified Code(s): D64.9 - Anemia, unspecified Status: Chronic Assessment and Plan: due to #1, chronic infection/inflammation, and possible SADAF resistance follow trend of H/H Epogen with HD (4) Atrial fibrillation with RVR: Code(s): I48.91 - Unspecified atrial fibrillation Status: Acute Assessment and Plan: Cardiology following continue rate control strategy holding off on anticoagulation at this time given acute medical issues (5) Hypertension: Qualifiers: Hypertension type: essential hypertension Qualified Code(s): I10 - Essential (primary) hypertension Code(s): I10 - Essential (primary) hypertension Status: Acute Assessment and Plan: fluctuates in general fluid removal as tolerated follow trend of hemodynamics (6) UTI (urinary tract infection): Qualifiers: Hematuria presence: without hematuria Urinary tract infection type: site unspecified Qualified Code(s): N39.0 - Urinary tract infection, site not specified Code(s): N39.0 - Urinary tract infection, site not specified Status: Acute Assessment and Plan: urine culture results noted not felt to be a true infection no further antibiotic for treatment (7) Type 2 diabetes mellitus: Qualifiers: Diabetes mellitus complication status: with hyperglycemia Diabetes mellitus penitentiary insulin use: with penitentiary use Qualified Code(s): E11.65 - Type 2 diabetes mellitus with hyperglycemia; Z79.4 - custodial (current) use of insulin Code(s): E11.9 - Type 2 diabetes mellitus without complications Status: Acute Assessment and Plan: follow accuchecks on SSI Will continue to follow. Subjective Date/time seen: 10/12/19 10:08 Tolerated dialysis yesterday without any issues or problems; no acute distress voiced; wants to go home (on discharge) but I discussed with that she will need to build up her strength before going home as she is quite deconditioned. Exam Narrative: Exam Narrative: General: WD/WN female in NAD Heart: normal S1 and S2; no rub Lungs: coarse with decreased breath sounds Abdomen: soft, nondistended, less TTP; positive bowel sounds Extremities: no cyanosis or clubbing; trace edema Skin: warm and dry Objective Data Vital Signs Vital Signs: Vital Signs Temp Pulse Resp BP Pulse Ox 10/12/19 08:57 60 10/12/19 08:56 60 10/12/19 08:22 64 20 10/12/19 08:12 62 20 95 10/12/19 06:00 36.1 C L 67 22 H 117/48 L 91 10/12/19 01:57 61 20 10/12/19 01:48 62 20 94 10/11/19 21:55 36.1 C L 63 24 H 110/45 L 92 10/11/19 21:10 63 10/11/19 20:31 64 24 H 97 10/11/19 20:18 67 24 H 95 10/11/19 18:50 36.6 C 64 18 109/47 L 10/11/19 18:44 63 9
[2019-10-12] MEDS: CHOLESTYRAMINE LIGHT 4 GM POWD.PACK PO (10:19)
[2019-10-12 11:57] LABS: Glucose Point of Care 115 (65-105)
--- NOTE | 2019-10-12 12:39 | P.DS_ITS ---
DS: Diagnosis Admitting Diagnosis Admitting Diagnosis: Enterocolitis due to Clostridium difficile, not specified a s recurrent Discharge Diagnosis (1) C. difficile colitis: Code(s): A04.72 - Enterocolitis due to Clostridium difficile, not specified as recurrent Status: Acute Assessment and Plan: * Given recent C diff, likely this is a recurrence. Patient was not retested. * CT Abd/Pelvis 09/26 showing progression of diffuse colitis (compared to 08/31/19) * Fidaxomicin first dose 09/26 PM and completed 10/06 * Vancomycin Day 4 of then with plans for tapering dose; vancomycin 125mg BID x 14 days then daily indefinitely * CT Abd/pelvis 10/06 c/w uncomplicated colitis * Currently on Questran and Florastor as well * Had fecal containment system but able to be removed * ID involved in her care (2) Atrial fibrillation with RVR: Code(s): I48.91 - Unspecified atrial fibrillation Status: Acute Assessment and Plan: * Echo 09/03/19 with LVEF 65-70%, severe pulmonary HTN (60mmHg) * [id number] = 6. * Cardiology changed to po amiodarone 10/05 but back to rapid afib so put back on IV; Changed to oral Amio 10/09 * 10/05 Fluid bolus for hypotension * Eliquis to be added due to high [id number] and now DVT; as below. Will not give loading dose of Eliquis or continue ASA at this time * patient at risk of bleeding with full anticoagulation due to colitis but benefits>>risk at this point (3) End-stage renal disease on hemodialysis: Code(s): N18.6 - End stage renal disease; Z99.2 - Dependence on renal dialysis Status: Acute Assessment and Plan: * Mild fluid overloaded 10/01 as evidence by physical exam and chest x-ray. * Continue HD -W- to control fluid status * Appreciate Nephrology input * UA noted with pyuria with positive UCx showing ESBL Klebsiella and EColi not felt to be UTI per ID. (4) Chronic anemia: Code(s): D64.9 - Anemia, unspecified Status: Acute Assessment and Plan: * HH low but stable in the 8-9 range * Likely anemia of chronic kidney disease * Epogen per renal (5) Suspected sleep apnea: Code(s): R29.818 - Other symptoms and signs involving the nervous system Status: Acute Assessment and Plan: * Pulmonology recommends BiPAP, 06/11 with a rate of 14 * Continue BiPAP at night, with naps and as needed. * Patient is awaiting formal outpatient polysomnogram. * Continue the same at facility (6) Type 2 diabetes mellitus: Qualifiers: Diabetes mellitus complication status: with hyperglycemia Diabetes chris itus correction insulin use: with correction use Qualified Code(s): E11.65 - Type 2 diabetes mellitus with hyperglycemia; Z79.4 - search developer (current) use of insulin Code(s): E11.9 - Type 2 diabetes mellitus without complications Status: Acute Assessment and Plan: * Recent A1c 6.1% * Glucose monitored closely and remained well controlled * Sliding scale insulin, Accu-Cheks, and hypoglycemic protocol. (7) Hypertension: Qualifiers: Hypertension type: essential hypertension Qualified Code(s): I10 - Essential (primary) hypertension Code(s): I10 - Essential (primary) hypertension Status: Acute Assessment and Plan: * BP monitored closely and remained well controlled * Continue metoprolol with parameters (8) Sepsis: Qualifiers: Sepsis acute organ dysfunction status: without acute organ dysfunction Sepsis type: sepsis due to unspecified organism Qualified
--- NOTE | 2019-10-12 12:39 | PM.DS ---
DS: Diagnosis Admitting Diagnosis Admitting Diagnosis: Enterocolitis due to Clostridium difficile, not specified as recurrent Discharge Diagnosis (1) C. difficile colitis: Code(s): A04.72 - Enterocolitis due to Clostridium difficile, not specified as recurrent Status: Acute Assessment and Plan: Given recent C diff, likely this is a recurrence. Patient was not retested. CT Abd/Pelvis 09/26 showing progression of diffuse colitis (compared to 08/31/19) Fidaxomicin first dose 09/26 PM and completed 10/06 Vancomycin Day of then with plans for tapering dose; vancomycin 125mg BID x 14 days then daily indefinitely CT Abd/pelvis 10/06 c/w uncomplicated colitis Currently on Questran and Florastor as well Had fecal containment system but able to be removed ID involved in her care (2) Atrial fibrillation with RVR: Code(s): I48.91 - Unspecified atrial fibrillation Status: Acute Assessment and Plan: Echo 09/03/19 with LVEF 65-70%, severe pulmonary HTN (60mmHg) [id number] = 6. Cardiology changed to po amiodarone 10/05 but back to rapid afib so put back on IV; Changed to oral Amio 10/09 10/05 Fluid bolus for hypotension Eliquis to be added due to high [id number] and now DVT; as below. Will not give loading dose of Eliquis or continue ASA at this time patient at risk of bleeding with full anticoagulation due to colitis but benefits>>risk at this point (3) End-stage renal disease on hemodialysis: Code(s): N18.6 - End stage renal disease; Z99.2 - Dependence on renal dialysis Status: Acute Assessment and Plan: Mild fluid overloaded 10/01 as evidence by physical exam and chest x-ray. Continue HD -- to control fluid status Appreciate Nephrology input UA noted with pyuria with positive UCx showing ESBL Klebsiella and EColi not felt to be UTI per ID. (4) Chronic anemia: Code(s): D64.9 - Anemia, unspecified Status: Acute Assessment and Plan: HH low but stable in the 8-9 range Likely anemia of chronic kidney disease Epogen per renal (5) Suspected sleep apnea: Code(s): R29.818 - Other symptoms and signs involving the nervous system Status: Acute Assessment and Plan: Pulmonology recommends BiPAP, / with a rate of 14 Continue BiPAP at night, with naps and as needed. Patient is awaiting formal outpatient polysomnogram. Continue the same at facility (6) Type 2 diabetes mellitus: Qualifiers: Diabetes mellitus complication status: with hyperglycemia Diabetes mellitus shelter insulin use: with ad terminal makeup operator use Qualified Code(s): E11.65 - Type 2 diabetes mellitus with hyperglycemia; Z79.4 - lobsterman (current) use of insulin Code(s): E11.9 - Type 2 diabetes mellitus without complications Status: Acute Assessment and Plan: Recent A1c 6.1% Glucose monitored closely and remained well controlled Sliding scale insulin, Accu-Cheks, and hypoglycemic protocol. (7) Hypertension: Qualifiers: Hypertension type: essential hypertension Qualified Code(s): I10 - Essential (primary) hypertension Code(s): I10 - Essential (primary) hypertension Status: Acute Assessment and Plan: BP monitored closely and remained well controlled Continue metoprolol with parameters (8) Sepsis: Qualifiers: Sepsis acute organ dysfunction status: without acute organ dysfunction Sepsis type: sepsis due to unspecified organism Qualified Code(s): A41.9 - Sepsis, unspecified organism Code(s): A41.9 - Sepsis, unspecified organism Status: Acute Assessment and Plan: Present on admission and supported by relative hypotension (responsive to IV fluids), fever, and leukocytosis in the setting of C diff colitis. Continue Rx of c diff (9) Pulmonary hypertension: Code(s): I27.20 - Pulmonary hypertension, unspecified Status: Acute Ass
[2019-10-12] MEDS: ALPRAZOLAM 0.5 MG TABLET PO (13:39)
--- NOTE | 2019-10-12 13:53 | PCOTNOTE ---
Patient unable to be seen this date, per RN - will continue OT plan of care tomorrow 10/13/19,
--- NOTE | 2019-10-12 14:55 | PC.NURSE ---
Report called to TIMOTHY Cole at [facility]. All questions and concerns answered at this time.
== END 2019-10-12 16:30 | DRG 871 ==
LOC: ANHED 15:46 → ANH3MEDSUR 16:21 → ANHICU 09-28 22:25 → ANHIMU 09-29 16:36 → ANH2MED 10-09 13:02
PROVIDERS: Family Medicine; Internal Medicine; Internal Medicine Nephrology; Physician Assistant; Admitting Provider Family Medicine; Emergency Provider Emergency Medicine; PCP Family Medicine; Visit Provider Internal Medicine
DX: A41.9 Sepsis, unspecified organism (principal); N18.6 End stage renal disease; A04.72 Enterocolitis due to Clostridium difficile, not specified as recurrent; I12.0 Hypertensive chronic kidney disease with stage 5 chronic kidney disease or end stage renal disease; I82.4Z2 Acute embolism and thrombosis of unspecified deep veins of left distal lower extremity; I69.354 Hemiplegia and hemiparesis following cerebral infarction affecting left non-dominant side; Z68.42 Body mass index [BMI] 45.0-49.9, adult; I48.91 Unspecified atrial fibrillation; D63.1 Anemia in chronic kidney disease; G47.30 Sleep apnea, unspecified; E11.65 Type 2 diabetes mellitus with hyperglycemia; E11.42 Type 2 diabetes mellitus with diabetic polyneuropathy; E11.22 Type 2 diabetes mellitus with diabetic chronic kidney disease; I27.20 Pulmonary hypertension, unspecified; K74.60 Unspecified cirrhosis of liver; E78.5 Hyperlipidemia, unspecified; I87.2 Venous insufficiency (chronic) (peripheral); F41.9 Anxiety disorder, unspecified; M19.90 Unspecified osteoarthritis, unspecified site; E66.01 Morbid (severe) obesity due to excess calories; Z79.4 Long term (current) use of insulin; Z99.2 Dependence on renal dialysis
CPT/HCPCS: 36415; 71045; 74018; 74176; 80048; 80053; 80069; 81001; 83605; 83690; 83735; 84100; 85025; 85027; 85610; 86140; 87040; 87077; 87086; 87088; 87186; 92610; 92611; 93005; 93971; 94640; 94660; 96361; 96365; 96367; 96375; 96376; 97110; 97162; 97166; 97530; 97535; 99285; A9270; G0257; G0378; J0131; J0282; J0696; J0780; J1160; J1644; J1815; J2405; J7030; J7040; J7120; P9047; Q4081

== ENCOUNTER 2019-10-20 01:59 | Inpatient (IN) | payer MEDICARE, SELFPAY ==
[2019-10-20] VITALS (20 sets, daily range): BP systolic 101–138; BP diastolic 47–63; PULSE 52–555; RESP 16–26; TEMP 36.3–37.1; O2SAT 95–100; BMI 42.1
--- NOTE | ~2019-10-20 | XR_ITS ---
EXAMINATION: XR chest 1V portable DATE: 10/22/2019 05:40 INDICATION: Pneumonia. TECHNIQUE: A single frontal view of the chest was obtained. COMPARISON: Chest single view 10/20/2019, CT abdomen and pelvis 10/07/2019 FINDINGS: The patient is rotated to her left. There are small pleural effusions. There are airspace o pacities in the perihilar regions and at the lung bases. No pneumothorax. Cardiomegaly is noted. A ri ght internal jugular central venous catheter is seen with tip in right atrium. IMPRESSION: 1. Small pleural effusions with interval improvement. 2. Airspace opacities in the perihilar regions and at the lung bases with improvement, consistent wit h atelectasis versus pulmonary edema versus pneumonia. 3. Cardiomegaly. Reviewed, dictated and finalized at location A. IMPRESSION: 1. Small pleural effusions with interval improvement. 2. Airspace opacities in the perihilar regions and at the lung bases with impro vement, consistent with atelectasis versus pulmonary edema versus pneumonia. 3. Cardiomegaly.
--- NOTE | ~2019-10-20 | XR_ITS ---
EXAMINATION: XR chest 1V portable INDICATION: Shortness of breath, hypoxia TECHNIQUE: Portable AP chest at 0327 hours COMPARISON: 10/07/2019 FINDINGS: A right internal jugular catheter ends with its tip in the right atrium. There are bilatera l perihilar opacities, improved on the left and worse on the right. Bibasilar airspace opacities pers ist but have improved. There are small pleural effusions. Stable cardiomegaly is noted. There is no p neumothorax. IMPRESSION: 1. Perihilar and bibasilar airspace opacities, consistent with pulmonary edema and/or atelectasis and /or pneumonia. 2. Stable cardiomegaly. 3. Small pleural effusions, stable. Reviewed, dictated and finalized at location A. IMPRESSION: 1. Perihilar and bibasilar airspace opacities, consistent with pulmonary edema and/or atelectasis and/or pneumonia. 2. Stable cardiomegaly. 3. Small pleural effusions, stable.
--- NOTE | 2019-10-20 02:11 | ED.SOB ---
HPI - SOB/Dyspnea General Chief Complaint: Shortness of Breath/Dyspnea Stated Complaint: LOW O2 Time Seen by Provider: 10/20/19 02:10 Source: patient, EMS, RN notes reviewed and old records reviewed Mode of arrival: EMS Limitations: no limitations History of Present Illness HPI Narrative: Patient is a 69-year-old female who presents to the emergency department with report of shortness of breath and low O2 saturations. Patient has history of chronic respiratory failure and wears BiPAP at nighttime and 3 L of O2 via nasal cannula chronically. Patient had removed her BiPAP and her oxygen and was found by staff cyanotic appearing with O2 saturations in the 80s. Patient's oxygen was placed back on her and turned up to 4 L, but her O2 saturations were not improving, so staff called 911. On arrival of EMS, patient had O2 saturation of 100%. Her respirations were labored on their arrival. Patient was noted to be slightly tachypneic and labored in her breathing on arrival, but did improve with lying on her side. Her only complaint to nursing staff was that her bottom hurts and she does have a known history of a decubitus ulcer. On my evaluation, patient is denying any shortness of breath and does not know why she is in the emergency department. Staff at senior care reported the patient was tested for COVID-19 today. Patient was discharged from the hospital approximately 1 week ago. Patient was started on dialysis approximately a month ago and is on a Monday, Monday, Monday schedule. Patient was recently hospitalized for C. difficile colitis. Patient also with findings of respiratory failure and suspected sleep apnea. Patient is morbidly obese, contributing to her respiratory issues. MD elicited complaint: shortness of breath Pertinent past history: congestive heart failure and other (End-stage renal disease, suspected sleep apnea) Context: recent illness Related Data Home Medications Medication Instructions Recorded Confirmed simvastatin 40 mg PO HS 09/27/19 09/27/19 Allergies Allergy/AdvReac Type Severity Reaction Status Date / Time clindamycin Allergy Unknown Unknown Verified 08/31/19 19:34 Penicillins Allergy Unknown Hives,Skin Verified 08/31/19 19:34 irritation Sulfa (Sulfonamide Allergy Unknown Hives,Skin Verified 08/31/19 19:34 Antibiotics) irritation Review of Systems Review of Systems: All systems reviewed & are unremarkable except as noted in HPI and below Constitutional: Constitutional: Denies fever(s) Respiratory: Respiratory: Denies dyspnea (Patient denies, but has been noted to have labored breathing) Gastrointestinal: Gastrointestinal: Denies abdominal pain PMFSH Past Medical History Medical History (Updated 10/20/19 @ 03:35 by Misa Aaron MD) Anxiety Atrial fibrillation C. difficile colitis Chronic anemia Chronic stasis dermatitis Cirrhosis With mild splenomegaly noted on CT of the abdomen and pelvis 09/27/2019. CVA (cerebral vascular accident) In 2011, with left side weakness. Diastolic CHF DVT (deep venous thrombosis) End-stage renal disease on hemodialysis History of Clostridium difficile colitis Hyperlipidemia Hypertension Osteoarthritis Seasonal allergies Severe pulmonary arterial systolic hypertension Recent echocardiogram demonstrated ejection fraction of 65 to 70% in addition to diastolic dysfunction. Suspected sleep apnea For awaiting formal outpatient polysomnogram. Seen by pulmonology during previous visit, recommending BiPAP at nighttime, 14/5 with a rate of 14 FiO2 of 40. . Type 2 diabetes mellitus With peripheral neuropathy. Recent hemoglobin A1c was 6.1%. Surgical History Surgical History History of arthroscopy of right knee History of tubal ligation History of umbilical hernia repair Social History Social History Social History: Mrs. Alcantara is
--- NOTE | 2019-10-20 02:20 | ECG_ITS ---
Measurements Intervals [place] Rate: 71 P: 26 NJ: 219 QRS: -26 QRSD: 99 T: -28 QT: 409 QTc: 446 Interpretive Statements SINUS RHYTHM WITH FIRST DEGREE AV BLOCK POOR R WAVE PROGRESSION, CONSIDER ANTERIOR INFARCT BORDERLINE ST-T WAVE ABNORMALITY- DIFFUSE LEADS BASELINE ARTIFACT- I, III, AVL, V3, V5-V6 ABNORMAL ECG Electronically Signed On 10-20-2019 8:35:18 CDT by Jered Vee D.O.
[2019-10-20 02:43] LABS: Basophils Absolute Auto 0.1 K/mm3 (0.0-0.1); Basophils Percent Auto 0.8 % (0.2-1.2); Eosinophils Absolute Auto 0.1 K/mm3 (0-0.3); Eosinophils Percent Auto 1.9 % (0-4.4); Hematocrit 33.5 % (37.0-47.0); Hemoglobin 9.3 g/dL (12.0-15.0); Immature Granulocyte Absolute 0.11 K/mm3 (0.00-0.031); Immature Granulocyte Percent A 1.5 % (0-0.5); Lymphocytes Absolute Auto 1.66 K/mm3 (0.9-3.2); Lymphocytes Percent Auto 22.3 % (18.3-44.2); Mean Corpuscular HGB Conc 27.8 g/dl (32-36); Mean Corpuscular Hemoglobin 27.6 pg (26-34); Mean Corpuscular Volume 99.4 fl (80-100); Mean Platelet Volume 10.1 fl (7.4-10.4); Monocytes Absolute Auto 0.8 K/mm3 (0.1-0.6); Monocytes Percent Auto 10.3 % (2.6-8.5); Neutrophils Absolute Auto 4.7 K/mm3 (1.3-6.7); Neutrophils Percent Auto 63.2 % (45.5-73.1); Platelet Count Result 166 k/mm3 (150-375); Red Blood Count 3.37 M/mm3 (4.2-5.4); Red Cell Distribution Width 19.2 % (11.5-14.5); White Blood Count 7.4 K/mm3 (4.5-10.0)
[2019-10-20 02:46] LABS: Base Excess ABG 3.5 mEq/l (+/-2.0); Carboxyhemoglobin 0.8 % THb (0-2.0); Fractional Inspired Oxygen 21 %; HCO3 ABG 32.2 mEq/l (22.0-26.0); Methemoglobin ABG 0.1 %THb (0-1.5); Oxygen Saturation ABG 98.5 % (95.0-100.0); Oxyhemoglobin 97.3 % THb (90.0-100.0); PO2 ABG 150.3 mmHg (80.0-100.0); Reduced Hemoglobin 1.8 %THb (0-5.0)
[2019-10-20 02:53] LABS: INR 1.7; Prothrombin Time 19.7 Seconds (11.1-14.7)
[2019-10-20 02:54] LABS: Partial Thromboplastin Time 34.6 SECONDS (22.3-36.8)
[2019-10-20 02:58] LABS: Device ROOM AIR; Modified Allen's Test Pass; Site Drawn RIGHT RADIAL
[2019-10-20 02:59] LABS: Alanine Aminotransferase 17 U/L (4-35); Albumin Level 2.7 g/dL (3.5-5.1); Alkaline Phosphatase 99 U/L (38-126); Aspartate Amino Transferase 18 U/L (14-36); Bilirubin,Total 0.6 mg/dL (0.2-1.3); Blood Urea Nitrogen 19 mg/dL (7-17); Calcium 8.2 mg/dL (8.4-10.2); Carbon Dioxide 31 mmol/L (22-30); Chloride 100 mmol/L (98-107); Estimated CRCL calculation 15 ml/min; Estimated Glomerular Filt Rate 12; Glucose 99 mg/dL (65-105); Potassium 4.5 mmol/L (3.4-5.0); Sodium 135 mmol/L (137-145)
[2019-10-20 03:02] LABS: Add Urine Microscopic? YES; Appearance Urine Cloudy (Clear); Bacteria Urine 2+ /hpf; Bilirubin Urine Negative (Negative); Blood Urine 1+ (Negative); Budding Yeast Urine Present /hpf; Glucose Urine UA Negative (Negative); Ketones Urine Negative (Negative); Leukocyte Esterase Ur 2+ LEU/UL (Negative); Mucus Urine Rare /lpf; Nitrate Urine Negative (Negative); Protein Urine 2+ mg/dL (Negative); RBC Urine >75 /hpf (0-2); Specific Grav Ur 1.028 (1.001-1.035); Squamous Epithelial Cell Urine Many /hpf (Few); Urobilinogen Urine Negative mg/dL (<2.0); WBC Clumps Urine Present /HPF; WBC Urine >75 /hpf
[2019-10-20 03:06] LABS: Color Urine Brown (Yellow)
[2019-10-20 03:08] LABS: NT Pro B Type Natriuretic Pept 14600 PG/ML (5-100)
[2019-10-20 03:11] LABS: Platelet Estimate Adequate (Adequate)
[2019-10-20 03:12] LABS: Hypochromasia 1+ (NORMAL); Macrocytosis 1+ (NORMAL); Stomatocytes 1+ (NORMAL)
--- NOTE | 2019-10-20 03:27 | PC.NURSE ---
Patient rolled to left side per request.
--- NOTE | 2019-10-20 05:30 | PC.NURSE ---
Patient rolled to right side for patient comfort.
--- NOTE | 2019-10-20 06:39 | ADMGEN ---
This patient, Aurelia Alcantara, was admitted to Intensive Care Unit-4. Patient/family oriented to hospital policies and general routines including ID bracelet, bed and alarms, visiting hours, pain management, procedures, bathroom and other care routines, personal items, smoking policy, room service/diet, and visiting hours. Valuables list has been completed. Information on how to activate the Rapid Response Team has been discussed. Patient/Family are encouraged to report perceived risks to care and to ask questions if they do not understand what they are told or what they should do.
[2019-10-20 06:50] LABS: Alveolar/Arterial O2 Gradient 112.5 mmHg; Base Excess ABG 3.3 mEq/l (+/-2.0); Fractional Inspired Oxygen 32 %; HCO3 ABG 31.5 mEq/l (22.0-26.0); Oxygen Content ABG 9.1 %vol (16.0-22.0); PO2 FiO2 Ratio Arterial Blood 1.03 %; Total Hemoglobin 10.1 g/dL (12.0-18.0)
[2019-10-20 07:43] LABS: Oxygen Saturation ABG 53.4 % (95.0-100.0); PCO2 ABG 70.6 mmHg (35.0-45.0); PO2 ABG 33.1 mmHg (80.0-100.0)
[2019-10-20 07:44] LABS: Device NASAL CANNULA; Modified Allen's Test Pass; Site Drawn RIGHT RADIAL
[2019-10-20 07:45] LABS: pH ABG 7.268 (7.350-7.450)
--- NOTE | 2019-10-20 08:46 | PC.NURSE ---
Spoke with [facility] about patient being tested for COVID.The halfway stated that she had not had a test done with them. Notified Dr. Koenig.
--- NOTE | 2019-10-20 09:03 | PM.IMHP ---
H&P: HPI History of Present Illness Chief complaint: Acute Chronic Hypercapnic,Hypoxic Resp.Failure, Narrative: Date and Time of History & Physical: October 20, 2019 at 8:15 a.m. Date and Time of Admission Order: October 20, 2019 at 4:24 a.m. Chief Complaint: Hypoxia. History of Present Illness: Aurelia Alcantara is a 69 year old female with multiple medical problems including ESRD on hemodialysis, hypertension, atrial fibrillation, chronic anemia, diastolic CHF, diabetes, DARREN, cirrhosis and chronic anemia as well as memory issues who was sent in from [facility] with complaint of hypoxia. Patient is well-known to the hospitalist service having recently been hospitalized several times at [facility] within the past 2 months most recently discharged on 10/12/2019 having been treated for C difficile colitis along with atrial fibrillation with RVR. Patient is known to need BiPAP for her DARREN but does not leave on for long periods of time. Patient was found by nursing staff at the senior living with BiPAP off early this morning and cyanotic with O2 saturations in the 80s per ER report. Patient normally on 3 L of oxygen which was increased to 4 L but O2 saturations did not improve. Nursing staff called EMS. On arrival of EMS, O2 saturations were 100% but respirations were labored with patient slightly tachypneic. On arrival in the emergency room, patient was noted to have acute on chronic respiratory failure with BiPAP initially started but held with concern for positive COVID infection. Patient herself now tells me she has had cough and decreased appetite. Denies shortness of breath. No chest pain or pressure. No further diarrhea. No nausea or vomiting. No headache. Patient believes she was tested a few days ago at the senior living for gilmore virus. She denies being tested at hemodialysis. Staff at the senior living now state patient has not been tested. Given her acute on chronic respiratory failure, patient was admitted to IMU for further evaluation and treatment. Review of Systems Constitutional: Constitutional: Denies chills and Denies fever(s) Eyes: Eyes: Denies blurry vision and Denies diplopia ENT: Denies nasal congestion and Denies nasal discharge Cardiovascular: Cardiovascular: Denies chest pain and Denies lightheadedness Respiratory: Respiratory: Reports cough and Denies dyspnea Gastrointestinal: Gastrointestinal: Denies abdominal pain, Denies nausea and Denies vomiting Genitourinary: Genitourinary: Denies hematuria and Denies dysuria Comments: Patient reports decreased urination Musculoskeletal: Musculoskeletal: Denies back pain Integumentary/Breasts: Skin/Breast: Denies rash Neurologic: Denies headache(s) Psychiatric: Psychiatric: Reports confusion Endocrine: Endocrine: Reports no additional endocrine complaints Hematologic/Lymphatic: Hematologic/Lymphatic: Reports no additional hematologic/lymphatic complaints Allergic/Immunologic: Allergic/Immunologic: Reports no additional allergic/immunologic complaints [facility] Past Medical History Medical History Anxiety Atrial fibrillation C. difficile colitis Chronic anemia Chronic stasis dermatitis Cirrhosis With mild splenomegaly noted on CT of the abdomen and pelvis 09/27/2019. CVA (cerebral vascular accident) In 2011, with left side weakness. Diastolic CHF DVT (deep venous thrombosis) End-stage renal disease on hemodialysis History of Clostridium difficile colitis Hyperlipidemia Hypertension Osteoarthritis Seasonal allergies Severe pulmonary arterial systolic hypertension Recent echocardiogram demonstrated ejection fraction of 65 to 70% in addition to diastolic dysfunction. Suspected sleep apnea For awaiting formal outpatient polysomnogram. Seen by pulmonology during previous visit, recommending BiPAP at nighttime, 06/11 with a rate of 14 FiO2 of 40. . Type 2 diabetes mellitus With pe
--- NOTE | 2019-10-20 09:38 | PM.CNNEP ---
Assessment and Plan Assessment and plan (1) End-stage renal disease on hemodialysis: Code(s): N18.6 - End stage renal disease; Z99.2 - Dependence on renal dialysis Status: Acute Assessment and Plan: The patient is on dialysis 3 times a week on Wednesdays and Fridays be at [facility]. Now that she has been tested for COVID she will need to go to a PUI shift which is typically Monday afternoons. If the COVID is negative, since she has not had a fever, she might be able to go back to her original dialysis shift. This will take until tomorrow afternoon to workout. So we will dialyze her tomorrow in the morning. (2) Suspected COVID-19 virus infection: Code(s): R68.89 - Other general symptoms and signs Status: Acute Assessment and Plan: The results of this test should be back by tomorrow afternoon (3) Atrial fibrillation: Qualifiers: Atrial fibrillation type: unspecified Qualified Code(s): I48.91 - Unspecified atrial fibrillation Code(s): I48.91 - Unspecified atrial fibrillation Status: Acute Assessment and Plan: Rate is well controlled. (4) Acute on chronic respiratory failure with hypoxia and hypercapnia: Code(s): J96.21 - Acute and chronic respiratory failure with hypoxia; J96.22 - Acute and chronic respiratory failure with hypercapnia Status: Acute Assessment and Plan: She is on a CPAP machine and uses oxygen p.r.n.. (5) C. difficile colitis: Code(s): A04.72 - Enterocolitis due to Clostridium difficile, not specified as recurrent Status: Acute Assessment and Plan: This is improved (6) Chronic anemia: Code(s): D64.9 - Anemia, unspecified Status: Acute Assessment and Plan: Hemoglobin is just below target. Will continue EPO. (7) Suspected sleep apnea: Code(s): R29.818 - Other symptoms and signs involving the nervous system Status: Acute Assessment and Plan: She uses a CPAP machine inconsistently (8) Type 2 diabetes mellitus: Qualifiers: Diabetes mellitus usp insulin use: with process helper use Diabetes mellitus complication status: with hyperglycemia Qualified Code(s): E11.65 - Type 2 diabetes mellitus with hyperglycemia; Z79.4 - intermediate (current) use of insulin Code(s): E11.9 - Type 2 diabetes mellitus without complications Status: Acute Assessment and Plan: On Accu-Cheks and sliding-scale insulin History of Present Illness Reason for Consult Consult date: 10/20/19 Chief Complaint Chief complaint: Acute Chronic Hypercapnic,Hypoxic Resp.Failure, History of Present Illness Narrative: Aurelia is a very pleasant 69-year-old lady who has multiple medical problems including end-stage renal disease on dialysis 3 times a week, chronic fluid overload, anemia of chronic kidney disease, renal osteodystrophy, diarrhea from C diff, congestive heart failure, cirrhosis, memory issues. The patient has been in out of the hospital with fluid overload then C diff diarrhea. She currently has been residing at [facility]. Apparently she was found without her CPAP mask on and was hypoxic. The became worried and called 911 and was brought over to the emergency room. In the emergency she was evaluated. Her oxygen level was a little bit low. She was placed on oxygen. She feels fine at the moment. She does not remember feeling bad. She does have a cough which is mild and she has poor appetite. She does not have chest pain or shortness of breath Her diarrhea is better. Has no belly pain. No nausea. She denies skin rash or joint pains. The patient has hypertension. Blood pressures been better controlled since she has been on dialysis. She has chronic fluid overload and congestive heart failure. Dialysis has helped this as well. She is generally weak and [facility]
[2019-10-20 10:07] LABS: Glucose Point of Care 86 (65-105)
[2019-10-20 11:53] LABS: Glucose Point of Care 115 (65-105)
[2019-10-20] MEDS: METOPROLOL TARTRATE 25 MG TABLET PO ×2 (11:59→19:52)
[2019-10-20] MEDS: APIXABAN 5 MG TABLET PO ×2 (12:00→17:02)
[2019-10-20] MEDS: FAMOTIDINE 20 MG TABLET PO ×2 (12:00→19:53)
[2019-10-20] MEDS: AMIODARONE HCL 200 MG TABLET PO (12:00)
[2019-10-20] MEDS: SACCHAROMYCES BOULARDII 250 MG CAPSULE PO ×2 (12:00→17:02)
[2019-10-20] MEDS: TOLNAFTATE 1% POWDER 45 GM BTL 1 APPLIC TOPICAL ×2 (12:01→19:53)
--- NOTE | 2019-10-20 12:39 | PCRCNOTE ---
Unable to obtain 12:00 ABG. Both Rosa Burk RRT and I tried with Doppler. Dr. Goodwin is aware that it was not obtained.
--- NOTE | 2019-10-20 13:06 | PC.NURSE ---
Updated son on patient's condition. Talked with Dr. Koenig regarding PO vancomycin that family stated patient was on at care home. Medication was not on paperwork from care home but Dr. Koenig was going to look at discharge summery. Medication was ordered and son was notified.
[2019-10-20] MEDS: VANCOMYCIN ORAL 125 MG/2.5 ML SYRUP PO ×2 (13:42→21:26)
[2019-10-20 17:15] LABS: Glucose Point of Care 171 (65-105)
--- NOTE | 2019-10-20 17:34 | PC.NURSE ---
Covid swab done by [facility] as it was not done as previously thought by the [facility].
[2019-10-20] MEDS: CHOLESTYRAMINE LIGHT 4 GM POWD.PACK PO (18:43)
[2019-10-20] MEDS: SIMVASTATIN 20 MG TABLET 40 MG PO (19:52)
[2019-10-21] VITALS (40 sets, daily range): BP systolic 98–160; BP diastolic 43–79; PULSE 51–79; RESP 16–25; TEMP 36.4–37; O2SAT 91–99; BMI 42.7
[2019-10-21 03:41] LABS: Basophils Absolute Auto 0.1 K/mm3 (0.0-0.1); Basophils Percent Auto 0.9 % (0.2-1.2); Eosinophils Absolute Auto 0.1 K/mm3 (0-0.3); Eosinophils Percent Auto 2.4 % (0-4.4); Hematocrit 30.4 % (37.0-47.0); Hemoglobin 8.5 g/dL (12.0-15.0); Immature Granulocyte Absolute 0.07 K/mm3 (0.00-0.031); Immature Granulocyte Percent A 1.2 % (0-0.5); Lymphocytes Absolute Auto 1.65 K/mm3 (0.9-3.2); Lymphocytes Percent Auto 28.2 % (18.3-44.2); Mean Corpuscular Hemoglobin 27.9 pg (26-34); Mean Corpuscular Volume 99.7 fl (80-100); Mean Platelet Volume 10.1 fl (7.4-10.4); Monocytes Absolute Auto 0.8 K/mm3 (0.1-0.6); Monocytes Percent Auto 12.8 % (2.6-8.5); Neutrophils Absolute Auto 3.2 K/mm3 (1.3-6.7); Neutrophils Percent Auto 54.5 % (45.5-73.1); Nucleated Red Blood Cells Perc 0.3 % (0.0-0.2); Platelet Count Result 164 k/mm3 (150-375); Red Blood Count 3.05 M/mm3 (4.2-5.4); Red Cell Distribution Width 19.4 % (11.5-14.5); White Blood Count 5.9 K/mm3 (4.5-10.0)
[2019-10-21 03:54] LABS: Albumin Level 2.6 g/dL (3.5-5.1); Blood Urea Nitrogen 24 mg/dL (7-17); Calcium 8.2 mg/dL (8.4-10.2); Carbon Dioxide 32 mmol/L (22-30); Chloride 100 mmol/L (98-107); Estimated CRCL calculation 13 ml/min; Estimated Glomerular Filt Rate 9; Glucose 101 mg/dL (65-105); Potassium 4.3 mmol/L (3.4-5.0); Sodium 135 mmol/L (137-145)
[2019-10-21 04:39] LABS: Hypochromasia 1+ (NORMAL); Macrocytosis 1+ (NORMAL); Platelet Estimate Adequate (Adequate); Stomatocytes 1+ (NORMAL)
[2019-10-21] MEDS: ACETAMINOPHEN 325 MG TABLET 650 MG PO (05:00)
[2019-10-21] MEDS: VANCOMYCIN ORAL 125 MG/2.5 ML SYRUP PO ×3 (06:00→21:04)
[2019-10-21] MEDS: APIXABAN 5 MG TABLET PO ×2 (08:24→17:32)
[2019-10-21] MEDS: AMIODARONE HCL 200 MG TABLET PO (08:24)
[2019-10-21] MEDS: METOPROLOL TARTRATE 25 MG TABLET PO ×2 (08:25→20:12)
[2019-10-21] MEDS: SACCHAROMYCES BOULARDII 250 MG CAPSULE PO ×2 (08:25→17:32)
[2019-10-21] MEDS: FAMOTIDINE 20 MG TABLET PO ×2 (08:25→20:14)
[2019-10-21] MEDS: TOLNAFTATE 1% POWDER 45 GM BTL 1 APPLIC TOPICAL ×2 (08:29→20:14)
[2019-10-21] MEDS: HEPARIN SODIUM 1,000 UNITS/ML VIAL 1000 UNITS IV PUSH (09:37)
[2019-10-21] MEDS: HEPARIN SODIUM 1,000 UNITS/ML VIAL 500 UNITS IV PUSH ×2 (09:41→10:48)
[2019-10-21 10:09] LABS: Alanine Aminotransferase 15 U/L (4-35); Albumin Level 2.3 g/dL (3.5-5.1); Alkaline Phosphatase 85 U/L (38-126); Aspartate Amino Transferase 12 U/L (14-36); Bilirubin,Total 0.5 mg/dL (0.2-1.3); Blood Urea Nitrogen 23 mg/dL (7-17); CRP 2.4 mg/dL (<1.0); Calcium 7.8 mg/dL (8.4-10.2); Carbon Dioxide 31 mmol/L (22-30); Chloride 101 mmol/L (98-107); Estimated CRCL calculation 14 ml/min; Estimated Glomerular Filt Rate 10; Glucose 107 mg/dL (65-105); Lactate Dehydrogenase 415 U/L (313-618); Potassium 3.9 mmol/L (3.4-5.0); Sodium 135 mmol/L (137-145)
--- NOTE | 2019-10-21 10:11 | PHAR ---
PT INFO SHEET SENT WITH FIRST EPOGEN DOSE
[2019-10-21 10:16] LABS: D Dimer 2.53 ug/mL (<0.48)
--- NOTE | 2019-10-21 10:38 | PC.NURSE ---
Pt noted to be having panic attack while in dialysis. Dr. Diaz notified and one time dose of xanax 0.5mg po times one dose ordered
[2019-10-21] MEDS: CHOLESTYRAMINE LIGHT 4 GM POWD.PACK PO ×2 (10:49→17:32)
[2019-10-21] MEDS: ALPRAZOLAM 0.5 MG TABLET PO (10:49)
[2019-10-21] MEDS: EPOETIN ALFA 10,000 UNITS/ML VIAL 10000 UNITS IV PUSH (11:21)
[2019-10-21 12:17] LABS: SARS-CoV-2 RNA PCR Negative
--- NOTE | 2019-10-21 12:23 | P.PNNP_ITS ---
Progress Note: A&P Assessment and Plan (1) Dependence on renal dialysis: Code(s): Z99.2 - Dependence on renal dialysis Status: Acute Assessment and Plan: * JESSICA/ARF several hospitalization ago [due to IV diuretics, pre-renal factors, and infection (C. diff colitis + UTI)] * unfortunately, remains dialysis dependent at this time * unclear if recovery will occur but had CKD stage IV at baseline (creatinine ~ 1.8 - 2.2 from HTN/DM/vascular dz) * follow trend of UOP and creatinine on the possibility of renal recovery * HD today and continue HD on // schedule (2) Suspected COVID-19 virus infection: Code(s): R68.89 - Other general symptoms and signs Status: Acute Assessment and Plan: * testing is negative (3) Atrial fibrillation: Qualifiers: Atrial fibrillation type: unspecified Qualified Code(s): I48.91 - Unspecified atrial fibrillation Code(s): I48.91 - Unspecified atrial fibrillation Status: Acute Assessment and Plan: * rate control strategy * on anticoagulation (4) Acute on chronic respiratory failure with hypoxia and hypercapnia: Code(s): J96.21 - Acute and chronic respiratory failure with hypoxia; J96.22 - Acute and chronic respiratory failure with hypercapnia Status: Acute Assessment and Plan: * continue CPAP machine * uses oxygen p.r.n. * suspect undiagnosed DARREN playing a role (5) C. 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 Subjective Date/time seen: 10/21/19 12:23 Tolerating dialysis at the time of visit (seen on HD at ~ 12:10PM); respiratory status seems to be doing reasonably well; no distress overnight or earlier this AM. Exam Narrative: Exam Narrative: General: WD/WN female in NAD Heart: normal S1 and S2; no rub Lungs: clear to auscultation Abdomen: soft, nontender, nondistended, positive bowel sounds Extremities: no cyanosis or clubbing; no edema Skin: warm and dry Objective Data Vital Signs Vital Signs: Vital Signs Temp Pulse Resp BP Pulse Ox 10/21/19 12:15 73 106/58 L 10/21/19 12:00 79 139/72 10/21/19 11:45 71 100/52 L 10/21/19 11:30 74 114/54 L 10/21/19 11:15 63 108/54 L 10/21/19 11:00 61 134/57 L 10/21/19 10:45 66 122/61 10/21/19 10:30 64 119/59 L 10/21/19 10:15 76 145/71 H 10/21/19 10:00 67 154/57 H 10/21/19 09:45 67 160/62 H 10/21/19 09:41 65 144/62 H 10/21/19 08:35 93 10/21/19 08:25 37.0 C 69 20 152/54 H 96 10/21/19 08:24 61 10/21/19 08:
--- NOTE | 2019-10-21 12:23 | PM.PNNEP ---
Progress Note: A&P Assessment and Plan (1) Dependence on renal dialysis: Code(s): Z99.2 - Dependence on renal dialysis Status: Acute Assessment and Plan: JESSICA/ARF several hospitalization ago [due to IV diuretics, pre-renal factors, and infection (C. diff colitis + UTI)] unfortunately, remains dialysis dependent at this time unclear if recovery will occur but had CKD stage IV at baseline (creatinine ~ 1.8 - 2.2 from HTN/DM/vascular dz) follow trend of UOP and creatinine on the possibility of renal recovery HD today and continue HD on // schedule (2) Suspected COVID-19 virus infection: Code(s): R68.89 - Other general symptoms and signs Status: Acute Assessment and Plan: testing is negative (3) Atrial fibrillation: Qualifiers: Atrial fibrillation type: unspecified Qualified Code(s): I48.91 - Unspecified atrial fibrillation Code(s): I48.91 - Unspecified atrial fibrillation Status: Acute Assessment and Plan: rate control strategy on anticoagulation (4) Acute on chronic respiratory failure with hypoxia and hypercapnia: Code(s): J96.21 - Acute and chronic respiratory failure with hypoxia; J96.22 - Acute and chronic respiratory failure with hypercapnia Status: Acute Assessment and Plan: continue CPAP machine uses oxygen p.r.n. suspect undiagnosed DARREN playing a role (5) C. 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 Subjective Date/time seen: 10/21/19 12:23 Tolerating dialysis at the time of visit (seen on HD at ~ 12:10PM); respiratory status seems to be doing reasonably well; no distress overnight or earlier this AM. Exam Narrative: Exam Narrative: General: WD/WN female in NAD Heart: normal S1 and S2; no rub Lungs: clear to auscultation Abdomen: soft, nontender, nondistended, positive bowel sounds Extremities: no cyanosis or clubbing; no edema Skin: warm and dry Objective Data Vital Signs Vital Signs: Vital Signs Temp Pulse Resp BP Pulse Ox 10/21/19 12:15 73 106/58 L 10/21/19 12:00 79 139/72 10/21/19 11:45 71 100/52 L 10/21/19 11:30 74 114/54 L 10/21/19 11:15 63 108/54 L 10/21/19 11:00 61 134/57 L 10/21/19 10:45 66 122/61 10/21/19 10:30 64 119/59 L 10/21/19 10:15 76 145/71 H 10/21/19 10:00 67 154/57 H 10/21/19 09:45 67 160/62 H 10/21/19 09:41 65 144/62 H 10/21/19 08:35 93 10/21/19 08:25 37.0 C 69 20 152/54 H 96 10/21/19 08:24 61 10/21/19 08:00 37.0 C 66 24 H 152/54 H 95 10/21/19 06:00 54 L 10/21/19 04:01 36.8 C 67 25 H 144/59 H 97 10/21/19 04:00 66 17 97 10/21/19 02:00 53 L 10/21/19 01:00 53 L 17 97 10/21/19 00:46 53 L 18 97 10/21/19 00:35 95 10/21/19 00:01 36.6 C 60 22 H 131/67 98 10/21/19 00:00 58 L 19 99 10/20/19 22:00 61 10/20/19 20:00 36.5 C 59 L 26 H 130/58 L 97 10/20/19 19:52 60 10/20/19 18:00 52 L 10/20/19 16:00 36.3 C L 61 22 H 138/57 L 95 10/20/19 14:00 53 L 10/20/19 12:30 100 Intake/Output Intake/Output: Intake & Output 10/18/19 10/19/19
[2019-10-21] MEDS: HEPARIN SODIUM 1,000 UNITS/ML VIAL 9000 UNITS (13:21)
--- NOTE | 2019-10-21 15:17 | PC.NURSE ---
This patient, Aurelia Alcantara, was received from ICU-4 on 10/21/19 at 1518. Personal belongings list checked and signed. Patient/family oriented to unit policies and routines
--- NOTE | 2019-10-21 15:23 | PC.NURSE ---
This patient, Aurelia Alcantara, was transferred to [[id number] ] on 10/21/19 at 1523. Personal belongings sent with patient. Belongings list checked and signed with receiving []. Report given to [ARI Vera @ [id number] ]. Appropriate documentation sent with patient.
--- NOTE | 2019-10-21 15:36 | PM.IMPN ---
Progress Note: A&P Assessment and Plan (1) Acute on chronic respiratory failure with hypoxia and hypercapnia: Code(s): J96.21 - Acute and chronic respiratory failure with hypoxia; J96.22 - Acute and chronic respiratory failure with hypercapnia Status: Acute Assessment and Plan: Most likely result of not using her BiPAP as prescribed. Now on oxygen at 2 L with patient awake and alert. Repeat ABG later today last showing pH 7.268, pCO2 70.6 and PO2 33.1 which is improvement from previous ABG. As patient is COVID suspect in reverse airflow room, may use BiPAP while in that room. Chest x-ray on admission perihilar and bibasilar airspace opacities and stable small pleural effusions without significant change from last admission. 10/21/19 15:36 patient is does 5-year-old female a [facility] with past medical history atrial fibrillation hypertension chronic respiratory failure on 3 L oxygen was sent to emergency department as patient was found hypoxic on her normal 3 L oxygen see was saturating 80% it was increased to 4 L without improvement patient was brought to emergency department by EMS and was found to have hypercapnic respiratory failure with hypoxia and initial patient was placed on BiPAP however there was a concern the patient may be positive for COVID-19 and patient was placed on high-flow oxygen since then her O2 saturation has improved, chest x-ray showed possible pneumonia patient was started on vancomycin, patient is negative for COVID, patient is feeling better not a short of breath denies any fever or chills and wants to go home (2) Suspected sleep apnea: Code(s): R29.818 - Other symptoms and signs involving the nervous system Status: Acute Assessment and Plan: Has not had formal sleep study yet but patient is to be using BiPAP at night and with naps as well as oxygen during the day. Will have BiPAP available as long as able while here. (3) Suspected COVID-19 virus infection: Code(s): R68.89 - Other general symptoms and signs Status: Acute Assessment and Plan: On further investigation, patient has not had testing initiated. Will order SARS-CoV-2 testing now. Continue isolation. If positive, this will affect her schedule for hemodialysis. COVID-19 is negative (4) End-stage renal disease on hemodialysis: Code(s): N18.6 - End stage renal disease; Z99.2 - Dependence on renal dialysis Status: Acute Assessment and Plan: Nephrology consulted and discussed with Dr. Gonzalez. Currently on Monday, Monday, Monday schedule. Plan for dialysis tomorrow. If positive for COVID-19, will need to switch to Monday, , Monday schedule. Will continue to monitor. Does not specifically seem fluid overloaded at this time. (5) Hypertension: Qualifiers: Hypertension type: essential hypertension Qualified Code(s): I10 - Essential (primary) hypertension Code(s): I10 - Essential (primary) hypertension Status: Acute Assessment and Plan: Blood pressure reviewed on 10/20/2019 and stable. Will continue to monitor on metoprolol. (6) Diastolic CHF: Qualifiers: Heart failure chronicity: chronic Qualified Code(s): I50.32 - Chronic diastolic (congestive) heart failure Code(s): I50.30 - Unspecified diastolic (congestive) heart failure Status: Acute Assessment and Plan: Not fluid overloaded at this time. Last echocardiogram on 09/03/2019 with EF 65-70%, diastolic dysfunction and severe pulmonary hypertension. Remains on metoprolol. Will monitor. (7) Diabetes mellitus: Qualifiers: Chronic kidney disease stage: stage 4 (severe) Diabetes mellitus complication detail: with chronic kidney disease Diabetes mellitus complication status: with kidney complications Diabetes mellitus half-way insulin use: with half-way use Diabetes mellitus type: type 2 Qualified Code(s): E11.22 - Type 2 diabetes
[2019-10-21 17:42] LABS: Glucose Point of Care 88 (65-105)
[2019-10-21] MEDS: SIMVASTATIN 20 MG TABLET 40 MG PO (20:12)
[2019-10-22] VITALS (9 sets, daily range): BP systolic 109–179; BP diastolic 38–63; PULSE 58–88; RESP 18–22; TEMP 36.1–36.7; O2SAT 94–97
[2019-10-22] MEDS: ALPRAZOLAM 0.5 MG TABLET PO (00:54)
[2019-10-22 05:40] LABS: Glucose Point of Care 152 (65-105)
[2019-10-22 06:03] LABS: Basophils Percent Auto 0.6 % (0.2-1.2); Eosinophils Absolute Auto 0.1 K/mm3 (0-0.3); Hematocrit 29.7 % (37.0-47.0); Hemoglobin 8.4 g/dL (12.0-15.0); Immature Granulocyte Absolute 0.07 K/mm3 (0.00-0.031); Immature Granulocyte Percent A 1.4 % (0-0.5); Lymphocytes Absolute Auto 1.44 K/mm3 (0.9-3.2); Mean Corpuscular HGB Conc 28.3 g/dl (32-36); Mean Corpuscular Hemoglobin 28.1 pg (26-34); Mean Corpuscular Volume 99.3 fl (80-100); Mean Platelet Volume 10.6 fl (7.4-10.4); Monocytes Absolute Auto 0.6 K/mm3 (0.1-0.6); Monocytes Percent Auto 12.1 % (2.6-8.5); Neutrophils Absolute Auto 2.7 K/mm3 (1.3-6.7); Neutrophils Percent Auto 54.9 % (45.5-73.1); Nucleated Red Blood Cells Perc 0.6 % (0.0-0.2); Platelet Count Result 153 k/mm3 (150-375); Red Blood Count 2.99 M/mm3 (4.2-5.4); Red Cell Distribution Width 19.5 % (11.5-14.5)
[2019-10-22 06:23] LABS: Alanine Aminotransferase 15 U/L (4-35); Albumin Level 2.4 g/dL (3.5-5.1); Alkaline Phosphatase 83 U/L (38-126); Aspartate Amino Transferase 15 U/L (14-36); Bilirubin,Total 0.7 mg/dL (0.2-1.3); Blood Urea Nitrogen 12 mg/dL (7-17); Calcium 7.4 mg/dL (8.4-10.2); Carbon Dioxide 33 mmol/L (22-30); Chloride 100 mmol/L (98-107); Estimated CRCL calculation 20 ml/min; Estimated Glomerular Filt Rate 17; Glucose 84 mg/dL (65-105); Potassium 3.8 mmol/L (3.4-5.0); Sodium 134 mmol/L (137-145)
[2019-10-22 06:44] LABS: Anisocytosis 1+ (NORMAL); Hypochromasia 1+ (NORMAL); Platelet Estimate Adequate (Adequate); Stomatocytes 1+ (NORMAL)
[2019-10-22 08:14] LABS: Glucose Point of Care 88 (65-105)
[2019-10-22] MEDS: AMIODARONE HCL 200 MG TABLET PO (08:38)
[2019-10-22] MEDS: SACCHAROMYCES BOULARDII 250 MG CAPSULE PO ×2 (09:28→17:00)
[2019-10-22] MEDS: FAMOTIDINE 20 MG TABLET PO (09:28)
[2019-10-22] MEDS: METOPROLOL TARTRATE 25 MG TABLET PO (09:28)
[2019-10-22] MEDS: APIXABAN 5 MG TABLET PO ×2 (09:28→17:00)
[2019-10-22] MEDS: VANCOMYCIN ORAL 125 MG/2.5 ML SYRUP PO (09:31)
[2019-10-22] MEDS: TOLNAFTATE 1% POWDER 45 GM BTL 1 APPLIC TOPICAL (09:32)
--- NOTE | 2019-10-22 11:30 | P.PNNP_ITS ---
Progress Note: A&P Assessment and Plan (1) Dependence on renal dialysis: Code(s): Z99.2 - Dependence on renal dialysis Status: Acute Assessment and Plan: * JESSICA/ARF several hospitalization ago [due to IV diuretics, pre-renal factors, and infection (C. diff colitis + UTI)] * unfortunately, remains dialysis dependent at this time * unclear if recovery will occur but had CKD stage IV at baseline (creatinine ~ 1.8 - 2.2 from HTN/DM/vascular dz) * follow trend of UOP and creatinine on the possibility of renal recovery * HD tomorrow and continue HD on // schedule (2) Suspected COVID-19 virus infection: Code(s): R68.89 - Other general symptoms and signs Status: Acute Assessment and Plan: * testing is negative (3) Atrial fibrillation: Qualifiers: Atrial fibrillation type: unspecified Qualified Code(s): I48.91 - Unspecified atrial fibrillation Code(s): I48.91 - Unspecified atrial fibrillation Status: Acute Assessment and Plan: * rate control strategy * on anticoagulation (4) Acute on chronic respiratory failure with hypoxia and hypercapnia: Code(s): J96.21 - Acute and chronic respiratory failure with hypoxia; J96.22 - Acute and chronic respiratory failure with hypercapnia Status: Acute Assessment and Plan: * continue CPAP machine * uses oxygen p.r.n. * suspect undiagnosed DARREN playing a role (5) C. difficile colitis: Code(s): A04.72 - Enterocolitis due to Clostridium difficile, not specified as recurrent Status: Acute Assessment and Plan: * clinically better (6) Chronic anemia: Code(s): D64.9 - Anemia, unspecified Status: Acute Assessment and Plan: * due to #1 * Epogen with HD * follow H/H (7) Type 2 diabetes mellitus: Qualifiers: Diabetes mellitus complication status: with hyperglycemia Diabetes m ellitus retirement insulin use: with predatory animal exterminator use Qualified Code(s): E11.65 - Type 2 diabetes mellitus with hyperglycemia; Z79.4 - terminal operations supervisor (current) use of insulin Code(s): E11.9 - Type 2 diabetes mellitus without complications Status: Acute Assessment and Plan: * follow accuchecks * on SSI Will continue to follow. Subjective Date/time seen: 10/22/19 11:30 Transferred out of ICU as COVID-19 negative; tolerated dialysis yesterday without any issues or problems; somewhat confused when I saw this AM -- she seemed convinced that I was not who I stated to be and that she needed to have dialysis today (even though I informed her that she had dialysis yesterday). Exam Narrative: Exam Narrative: General: WD/WN female in NAD Heart: normal S1 and S2; no rub Lungs: clear anteriorly Abdomen: soft, nontender, nondistended, positive bowel sounds Extremities: no cyanosis or clubbing; no edema Skin: warm and intact Objective Data Vital Signs Vital Signs: Vital Signs Temp Pulse Resp BP Pulse Ox 10/22/19 09:28 70 10/22/19 08:38 88 10/22/19 05:22 36.1 C L 70 18 109/44 L 97 10/22/19 04:00 58 L 10/22/19 00:00 72 10/21/19 21:53 36.6 C 71 22 H 138/75 91 10/21/19 21:20 72 20 91 10/21/19 20:12 73 10/21/19 20:00 68 91 10/21/19 16:00 73 10/21/19 15:49 36.4 C 65 16 133/79 95 10/21/19 14:00 66 10/21/19 13:16 36.6
--- NOTE | 2019-10-22 11:30 | PM.PNNEP ---
Progress Note: A&P Assessment and Plan (1) Dependence on renal dialysis: Code(s): Z99.2 - Dependence on renal dialysis Status: Acute Assessment and Plan: JESSICA/ARF several hospitalization ago [due to IV diuretics, pre-renal factors, and infection (C. diff colitis + UTI)] unfortunately, remains dialysis dependent at this time unclear if recovery will occur but had CKD stage IV at baseline (creatinine ~ 1.8 - 2.2 from HTN/DM/vascular dz) follow trend of UOP and creatinine on the possibility of renal recovery HD tomorrow and continue HD on // schedule (2) Suspected COVID-19 virus infection: Code(s): R68.89 - Other general symptoms and signs Status: Acute Assessment and Plan: testing is negative (3) Atrial fibrillation: Qualifiers: Atrial fibrillation type: unspecified Qualified Code(s): I48.91 - Unspecified atrial fibrillation Code(s): I48.91 - Unspecified atrial fibrillation Status: Acute Assessment and Plan: rate control strategy on anticoagulation (4) Acute on chronic respiratory failure with hypoxia and hypercapnia: Code(s): J96.21 - Acute and chronic respiratory failure with hypoxia; J96.22 - Acute and chronic respiratory failure with hypercapnia Status: Acute Assessment and Plan: continue CPAP machine uses oxygen p.r.n. suspect undiagnosed DARREN playing a role (5) C. difficile colitis: Code(s): A04.72 - Enterocolitis due to Clostridium difficile, not specified as recurrent Status: Acute Assessment and Plan: clinically better (6) Chronic anemia: Code(s): D64.9 - Anemia, unspecified Status: Acute Assessment and Plan: due to #1 Epogen with HD follow H/H (7) Type 2 diabetes mellitus: Qualifiers: Diabetes mellitus complication status: with hyperglycemia Diabetes mellitus oysterman insulin use: with oysterman use Qualified Code(s): E11.65 - Type 2 diabetes mellitus with hyperglycemia; Z79.4 - oil heaterman (current) use of insulin Code(s): E11.9 - Type 2 diabetes mellitus without complications Status: Acute Assessment and Plan: follow accuchecks on SSI Will continue to follow. Subjective Date/time seen: 10/22/19 11:30 Transferred out of ICU as COVID-19 negative; tolerated dialysis yesterday without any issues or problems; somewhat confused when I saw this AM -- she seemed convinced that I was not who I stated to be and that she needed to have dialysis today (even though I informed her that she had dialysis yesterday). Exam Narrative: Exam Narrative: General: WD/WN female in NAD Heart: normal S1 and S2; no rub Lungs: clear anteriorly Abdomen: soft, nontender, nondistended, positive bowel sounds Extremities: no cyanosis or clubbing; no edema Skin: warm and intact Objective Data Vital Signs Vital Signs: Vital Signs Temp Pulse Resp BP Pulse Ox 10/22/19 09:28 70 10/22/19 08:38 88 10/22/19 05:22 36.1 C L 70 18 109/44 L 97 10/22/19 04:00 58 L 10/22/19 00:00 72 10/21/19 21:53 36.6 C 71 22 H 138/75 91 10/21/19 21:20 72 20 91 10/21/19 20:12 73 10/21/19 20:00 68 91 10/21/19 16:00 73 10/21/19 15:49 36.4 C 65 16 133/79 95 10/21/19 14:00 66 10/21/19 13:16 36.6 C 69 24 H 137/51 L 95 10/21/19 13:11 61 104/49 L 10/21/19 13:00 62 98/43 L 10/21/19 12:45 64 109/52 L 10/21/19 12:30 66 122/57 L 10/21/19 12:16 36.6 C 62 25 H 106/58 L 98 10/21/19 12:15 73 106/58 L 10/21/19 12:01 78 22 H 139/72 97 10/21/19 12:00 79 139/72 10/21/19 11:45 71 100/52 L Intake/Output Intake/Output: Intake & Output 10/19/19 10/20/19 10/21/19 10/22/19 23:59 23:59 23:59 23:59 Intake Total 630 180 640 Output Total 300 2000 0 Balance 330 -1820 640 Meds/Results Medications: Active Medications Generic Name Dose R
[2019-10-22 12:38] LABS: Glucose Point of Care 110 (65-105)
--- NOTE | 2019-10-22 15:51 | PM.DS ---
DS: Diagnosis Admitting Diagnosis Admitting Diagnosis: Acute and chronic respiratory failure with hypoxia Discharge Diagnosis (1) Acute on chronic respiratory failure with hypoxia and hypercapnia: Code(s): J96.21 - Acute and chronic respiratory failure with hypoxia; J96.22 - Acute and chronic respiratory failure with hypercapnia Status: Acute Assessment and Plan: Most likely result of not using her BiPAP as prescribed. Now on oxygen at 2 L with patient awake and alert. Repeat ABG later today last showing pH 7.268, pCO2 70.6 and PO2 33.1 which is improvement from previous ABG. As patient is COVID suspect in reverse airflow room, may use BiPAP while in that room. Chest x-ray on admission perihilar and bibasilar airspace opacities and stable small pleural effusions without significant change from last admission. 10/21/19 15:36 patient is does 5-year-old female a [facility] with past medical history atrial fibrillation hypertension chronic respiratory failure on 3 L oxygen was sent to emergency department as patient was found hypoxic on her normal 3 L oxygen see was saturating 80% it was increased to 4 L without improvement patient was brought to emergency department by EMS and was found to have hypercapnic respiratory failure with hypoxia and initial patient was placed on BiPAP however there was a concern the patient may be positive for COVID-19 and patient was placed on high-flow oxygen since then her O2 saturation has improved, chest x-ray showed possible pneumonia patient was started on vancomycin, patient is negative for COVID, patient is feeling better not a short of breath denies any fever or chills and wants to go home (2) Suspected sleep apnea: Code(s): R29.818 - Other symptoms and signs involving the nervous system Status: Acute Assessment and Plan: Has not had formal sleep study yet but patient is to be using BiPAP at night and with naps as well as oxygen during the day. Will have BiPAP available as long as able while here. (3) Suspected COVID-19 virus infection: Code(s): R68.89 - Other general symptoms and signs Status: Acute Assessment and Plan: On further investigation, patient has not had testing initiated. Will order SARS-CoV-2 testing now. Continue isolation. If positive, this will affect her schedule for hemodialysis. COVID-19 is negative (4) End-stage renal disease on hemodialysis: Code(s): N18.6 - End stage renal disease; Z99.2 - Dependence on renal dialysis Status: Acute Assessment and Plan: Nephrology consulted and discussed with Dr. Gonzalez. Currently on Monday, Monday, Monday schedule. Plan for dialysis tomorrow. If positive for COVID-19, will need to switch to Monday, , Monday schedule. Will continue to monitor. Does not specifically seem fluid overloaded at this time. (5) Hypertension: Qualifiers: Hypertension type: essential hypertension Qualified Code(s): I10 - Essential (primary) hypertension Code(s): I10 - Essential (primary) hypertension Status: Acute Assessment and Plan: Blood pressure reviewed on 10/20/2019 and stable. Will continue to monitor on metoprolol. (6) Diastolic CHF: Qualifiers: Heart failure chronicity: chronic Qualified Code(s): I50.32 - Chronic diastolic (congestive) heart failure Code(s): I50.30 - Unspecified diastolic (congestive) heart failure Status: Acute Assessment and Plan: Not fluid overloaded at this time. Last echocardiogram on 09/03/2019 with EF 65-70%, diastolic dysfunction and severe pulmonary hypertension. Remains on metoprolol. Will monitor. (7) Diabetes mellitus: Qualifiers: Diabetes mellitus type: type 2 Diabetes mellitus correction insulin use: with correction use Diabetes mellitus complication status: with kidney complications Diabetes mellitus complication detail: with chronic kidney disease Chr
[2019-10-22 16:51] LABS: Glucose Point of Care 100 (65-105)
== END 2019-10-22 20:00 | DRG 189 ==
LOC: ANHED 04:28 → ANHICU 09:57 → ANH3MEDSUR 10-22 02:53 → ANHICU 10-24 08:59
PROVIDERS: Hospitalist; Internal Medicine Nephrology; Admitting Provider Family Medicine; Emergency Provider Emergency Medicine; PCP Family Medicine; Visit Provider Family Medicine
DX: J96.21 Acute and chronic respiratory failure with hypoxia (principal); N18.6 End stage renal disease; I13.2 Hypertensive heart and chronic kidney disease with heart failure and with stage 5 chronic kidney disease, or end stage renal disease; I50.32 Chronic diastolic (congestive) heart failure; I69.354 Hemiplegia and hemiparesis following cerebral infarction affecting left non-dominant side; Z68.41 Body mass index [BMI] 40.0-44.9, adult; Z20.828 Contact with and (suspected) exposure to other viral communicable diseases; J96.22 Acute and chronic respiratory failure with hypercapnia; E66.01 Morbid (severe) obesity due to excess calories; E11.22 Type 2 diabetes mellitus with diabetic chronic kidney disease; Z99.2 Dependence on renal dialysis; I48.91 Unspecified atrial fibrillation; G47.33 Obstructive sleep apnea (adult) (pediatric); K74.60 Unspecified cirrhosis of liver; I87.2 Venous insufficiency (chronic) (peripheral); Z86.718 Personal history of other venous thrombosis and embolism; E11.42 Type 2 diabetes mellitus with diabetic polyneuropathy; M19.90 Unspecified osteoarthritis, unspecified site; E78.5 Hyperlipidemia, unspecified; Z87.891 Personal history of nicotine dependence; Z99.81 Dependence on supplemental oxygen; R23.0 Cyanosis; E11.65 Type 2 diabetes mellitus with hyperglycemia; E87.70 Fluid overload, unspecified; Z91.19 Patient's noncompliance with other medical treatment and regimen
CPT/HCPCS: 36415; 36600; 51701; 71045; 80053; 80069; 81001; 82375; 82728; 82805; 83050; 83615; 83735; 83880; 84100; 85025; 85380; 85610; 85730; 86140; 87077; 87086; 87088; 87186; 87635; 93005; 94002; 97162; 97166; 99291; A9270; G0257; J1644; J7030; Q4081; U0003

== ENCOUNTER 2019-12-09 11:48 | Inpatient (IN) | payer MEDICARE, SELFPAY ==
[2019-12-09] VITALS (20 sets, daily range): BP systolic 79–130; BP diastolic 41–83; PULSE 60–93; RESP 16–23; TEMP 36.6; O2SAT 94–100; BMI 34.0
--- NOTE | ~2019-12-09 | CT_ITS ---
EXAMINATION: CT abdomen pelvis wo con DATE: 12/10/2019 00:07 INDICATION: Generalized abdominal pain. Nausea and vomiting. TECHNIQUE: Computed tomography (CT) of the abdomen and pelvis was performed without intravenous contr ast. Automated exposure control and iterative reconstruction technique were employed. The dose-length product was 1395.00 mGy-cm. COMPARISON: CT abdomen and pelvis 10/07/2019 FINDINGS: The visualized portions of the lung bases demonstrate mild atelectasis. There is pleural th ickening on the right. No pleural effusion. Cardiomegaly is noted. There are coronary artery calcific ations. No pericardial effusion. There is ectasia of ascending aorta measuring 4.4 cm. The liver and gallbladder are normal. Calcifications in the spleen are consistent with old granulomatous disease. T he pancreas, adrenal glands, and kidneys are normal. There are no dilated loops of bowel. There are a reas of wall thickening involving most of the colon. The appendix is not visualized. There are no pat hologically enlarged lymph nodes. There is no free intraperitoneal fluid. Is an umbilical hernia cont aining fat. There is severe thoracolumbar spondylosis. IMPRESSION: 1. Pancolitis, improved from 10/07/2019. 2. Umbilical hernia containing fat. Reviewed, dictated and finalized at location A.
--- NOTE | ~2019-12-09 | XR_ITS ---
EXAMINATION: XR chest port-a-cath/central DATE: 12/09/2019 15:07 INDICATION: Central line placement. TECHNIQUE: A single frontal view of the chest was obtained. COMPARISON: Chest 2 views 12/09/2019, CT abdomen and pelvis 10/07/2019 FINDINGS: Again seen is marked elevation of right hemidiaphragm. There is mild atelectasis in the mid and lower lung zones. No pleural effusion or pneumothorax. Cardiomegaly is noted. There is a promine nt left paracardial fat pad. A right internal jugular central venous catheter is seen with tip in the right atrium. A left internal jugular central venous catheter is seen with tip in the superior vena cava. IMPRESSION: 1. New central line tip in superior vena cava. 2. Persistent marked elevation of right hemidiaphragm. 3. Mild atelectasis in the mid and lower lung zones. 4. Cardiomegaly. Reviewed, dictated and finalized at location A.
--- NOTE | ~2019-12-09 | XR_ITS ---
EXAMINATION: XR chest 2V DATE: 12/09/2019 12:47 INDICATION: Weakness, nausea and vomiting TECHNIQUE: AP and lateral views of the chest are obtained. COMPARISON: 10/22/2019 FINDINGS: A right internal jugular tunneled dialysis catheter ends with its tip in the proximal right atrium. There is kinking of the catheter at the skin. Cardiomegaly is noted. There are airspace opac ities of the lower lobes. No pneumothorax is identified. There is severe thoracic spondylosis. Mitral annulus calcification is noted. IMPRESSION: 1. Cardiomegaly. 2. Bibasilar airspace opacities, consistent with atelectasis versus pneumonia. Reviewed, dictated and finalized at location A.
--- NOTE | 2019-12-09 11:50 | ECG_ITS ---
Measurements Intervals Cross Rate: 69 P: 19 MA: 219 QRS: -27 QRSD: 98 T: -21 QT: 433 QTc: 466 Interpretive Statements SINUS RHYTHM WITH FIRST DEGREE AV BLOCK LOW QRS VOLTAGE IN PRECORDIAL LEADS INFERIOR INFARCT, AGE INDETERMINATE ANTEROSEPTAL INFARCT, AGE INDETERMINATE BORDERLINE ST ABNORMALITY- HIGH LATERAL LEADS BASELINE ARTIFACT- I, III, AVL ABNORMAL ECG Electronically Signed On 12-09-2019 14:37:48 CDT by Jered Vee D.O.
--- NOTE | 2019-12-09 12:08 | PC.NURSE ---
VERBAL ORDER PER EDP JESSICA FOR 2L NS BOLUS STAT.
[2019-12-09] MEDS: SODIUM CHLORIDE 0.9% IV 1,000 ML 999 ML IV CONT ×3 (12:12→14:02)
--- NOTE | 2019-12-09 12:40 | PC.NURSE ---
PT TO RADIOLOGY ON BUDGET DIRECTOR, FLUIDS RUNNING.
--- NOTE | 2019-12-09 12:52 | PC.NURSE ---
PT REPORTS THAT SINCE SHE STARTED DIALYSIS THAT HER BP HAS BEEN LOW.
[2019-12-09 13:00] LABS: INR 2.3; Prothrombin Time 24.5 Seconds (11.1-14.7)
[2019-12-09 13:01] LABS: Alanine Aminotransferase 11 U/L (4-35); Albumin Level 2.9 g/dL (3.5-5.1); Alkaline Phosphatase 82 U/L (38-126); Aspartate Amino Transferase 12 U/L (14-36); Bilirubin,Total 0.4 mg/dL (0.2-1.3); Blood Urea Nitrogen 33 mg/dL (7-17); Calcium 8.2 mg/dL (8.4-10.2); Carbon Dioxide 22 mmol/L (22-30); Chloride 102 mmol/L (98-107); Estimated CRCL calculation 7 ml/min; Estimated Glomerular Filt Rate 5; Glucose 117 mg/dL (65-105); Potassium 3.8 mmol/L (3.4-5.0); Sodium 134 mmol/L (137-145)
[2019-12-09 13:01] LABS: Partial Thromboplastin Time 38.5 SECONDS (22.3-36.8)
[2019-12-09 13:02] LABS: Lactic Acid Reflex 1.3 mmol/L (0.7-2.1)
--- NOTE | 2019-12-09 13:02 | ED.GENADULT ---
HPI - General Adult General Chief complaint: Weakness Stated complaint: N/V WEAKNESS Time Seen by Provider: 12/09/19 12:18 History of Present Illness HPI narrative: Patient is a 69 y/o female complaining of nausea, vomiting and weakness since yesterday. She states that she vomited twice total and it was mostly food material mostly. There is no alleviating or exacerbating factor. She denies any fever, chills, chest pain or abdominal pain. She was noted to have low BP during dialysis today and sent here. Related Data Home Medications Medication Instructions Recorded Confirmed simvastatin 40 mg PO HS 09/27/19 10/20/19 alprazolam 0.5 mg PO HS PRN 10/20/19 10/20/19 uasihped-binbicida-rglm pr con cap PO 12/09/19 12/09/19 Allergies Allergy/AdvReac Type Severity Reaction Status Date / Time clindamycin Allergy Unknown Unknown Verified 12/09/19 12:39 Penicillins Allergy Unknown Hives,Skin Verified 12/09/19 12:39 irritation Sulfa (Sulfonamide Allergy Unknown Hives,Skin Verified 12/09/19 12:39 Antibiotics) irritation Review of Systems Constitutional: Constitutional: Denies chills, Denies fever(s), Denies headache(s) and Reports weakness Eyes: Eyes: Denies blurry vision ENT: Denies headache(s) and Denies neck pain Cardiovascular: Cardiovascular: Denies chest pain and Denies dyspnea Respiratory: Respiratory: Denies cough and Denies dyspnea Gastrointestinal: Gastrointestinal: Denies abdominal pain, Denies diarrhea, Reports nausea and Reports vomiting Genitourinary: Genitourinary: Denies hematuria and Denies dysuria Musculoskeletal: Musculoskeletal: Denies back pain and Denies neck pain Neurologic: Denies headache(s) and Denies weakness [facility] Past Medical History Medical History Anxiety Atrial fibrillation C. difficile colitis Chronic anemia Chronic stasis dermatitis Cirrhosis With mild splenomegaly noted on CT of the abdomen and pelvis 09/27/2019. CVA (cerebral vascular accident) In 2011, with left side weakness. Diastolic CHF DVT (deep venous thrombosis) End-stage renal disease on hemodialysis History of Clostridium difficile colitis Hyperlipidemia Hypertension Osteoarthritis Seasonal allergies Severe pulmonary arterial systolic hypertension Recent echocardiogram demonstrated ejection fraction of 65 to 70% in addition to diastolic dysfunction. Suspected sleep apnea For awaiting formal outpatient polysomnogram. Seen by pulmonology during previous visit, recommending BiPAP at nighttime, 14/5 with a rate of 14 FiO2 of 40. . Type 2 diabetes mellitus With peripheral neuropathy. Recent hemoglobin A1c was 6.1%. Surgical History Surgical History History of arthroscopy of right knee History of tubal ligation History of umbilical hernia repair Family History Family History Father , 76 Family history of cardiovascular disease Acute myocardial infarction Mother Family history of Alzheimer's disease Hypertension Sibling Hypertension Sibling Hypertension Daughter Breast cancer Social History Social History Social History: Mrs. Alcanatra is . She is now currently residing at [facility]. She has 2 sons and 1 daughter. 1 daughter is unfortunately due to breast cancer. She designates her son Bowen as her surrogate decision maker. She remains a full code. She smoked remotely for short period of time. No alcohol or drug use. Smoking status: Never smoker Alcohol intake: never Substance use: never Gender identity (if verbalized by the patient): Female Spiritual care concerns: No Agree to blood products: Yes Exam Const: General: no acute distress and well developed Orientation/consciousness: oriented to person, oriented to poppy
[2019-12-09 13:04] LABS: Basophils Absolute Auto 0.1 K/mm3 (0.0-0.1); Basophils Percent Auto 0.6 % (0.2-1.2); Eosinophils Absolute Auto 0.2 K/mm3 (0-0.3); Eosinophils Percent Auto 2.6 % (0-4.4); Hematocrit 40.3 % (37.0-47.0); Hemoglobin 12.1 g/dL (12.0-15.0); Immature Granulocyte Absolute 0.03 K/mm3 (0.00-0.031); Immature Granulocyte Percent A 0.4 % (0-0.5); Lymphocytes Absolute Auto 1.79 K/mm3 (0.9-3.2); Lymphocytes Percent Auto 21.3 % (18.3-44.2); Mean Corpuscular Hemoglobin 30.7 pg (26-34); Mean Corpuscular Volume 102.3 fl (80-100); Mean Platelet Volume 11.2 fl (7.4-10.4); Monocytes Absolute Auto 0.8 K/mm3 (0.1-0.6); Monocytes Percent Auto 9.3 % (2.6-8.5); Neutrophils Absolute Auto 5.5 K/mm3 (1.3-6.7); Neutrophils Percent Auto 65.8 % (45.5-73.1); Platelet Count Result 159 k/mm3 (150-375); Red Blood Count 3.94 M/mm3 (4.2-5.4); Red Cell Distribution Width 16.2 % (11.5-14.5); White Blood Count 8.4 K/mm3 (4.5-10.0)
[2019-12-09 13:09] LABS: CRP 4.5 mg/dL (<1.0)
[2019-12-09 13:11] LABS: Add Urine Microscopic? YES; Appearance Urine Turbid (Clear); Bacteria Urine 2+ /hpf; Bilirubin Urine Negative (Negative); Blood Urine 2+ (Negative); Glucose Urine UA Negative (Negative); Ketones Urine Negative (Negative); Leukocyte Esterase Ur 1+ LEU/UL (Negative); Mucus Urine Heavy /lpf; Nitrate Urine Negative (Negative); Protein Urine 2+ mg/dL (Negative); RBC Urine >75 /hpf (0-2); Specific Grav Ur 1.019 (1.001-1.035); Urobilinogen Urine Negative mg/dL (<2.0); WBC Clumps Urine Present /HPF; WBC Urine >75 /hpf
[2019-12-09 13:14] LABS: Color Urine Brown (Yellow)
--- NOTE | 2019-12-09 13:59 | PC.NURSE ---
VERBAL ORDER PER ERP ROBBIN FOR X1L NS BOLUS. ERP STATES THAT IF PT BP DOES NOT IMPROVE THAT HE WILL PLACE CENTRAL LINE.
--- NOTE | 2019-12-09 14:03 | PC.NURSE ---
ERP ROBBIN AT BEDSIDE, VERBALIZED ORDER FOR CENTRAL LINE.
--- NOTE | 2019-12-09 14:30 | PC.NURSE ---
Assumed care of pt from ARI Basurto. Pt moved to Rm 7 for central line placement.
--- NOTE | 2019-12-09 14:40 | PC.NURSE ---
Dr Chisholm at bedside for central line placement. Pt awake and oriented, bp 78/65. Educated and verbalized understanding of procedure.
[2019-12-09] MEDS: NOREPINEPHRINE 8 MG/D5W 250 ML 8 MG/250 ML BAG 9.4 MG IV CONT (15:21)
--- NOTE | 2019-12-09 20:05 | ADMGEN ---
This patient, Aurelia Alcantara, was admitted to Intensive Care Unit-5 on 12/09/2019 at 1948. Patient/family oriented to hospital policies and general routines including ID bracelet, bed and alarms, visiting hours, pain management, procedures, bathroom and other care routines, personal items, smoking policy, room service/diet, and visiting hours. Valuables list has been completed. Information on how to activate the Rapid Response Team has been discussed. Patient/Family are encouraged to report perceived risks to care and to ask questions if they do not understand what they are told or what they should do.
--- NOTE | 2019-12-09 20:20 | PM.IMHP ---
H&P: HPI History of Present Illness Chief complaint: Hypotension Narrative: Date and time of patient contact: 12/09/2019 at 9:00 p.m. Aurelia Alcantara is a 69 year old female with a past medical history of chronic hypoxic hypercapnic respiratory failure, severe pulmonary hypertension, end-stage renal disease on hemodialysis, and recent C diff colitis who presented to the ER with hypotension from [facility] due to hypotension. The patient had [facility] but she did not receive hemodialysis due to hypotension. She was redirected to come to the ER. Source of information is from past medical records and ER records. long term staff reports that the patient has had intermittent confusion ever since her hospitalization in August. The patient had finished an 8 week course of p.o. vancomycin November 18, 2019. Nursing staff contacted the penitentiary who reported that the patient has continued to have diarrhea. However, for the last 48 hours the patient has had only 2 liquid smears and they had been unable to collect a stool sample to send for C diff. At the time of my evaluation the patient reported that she had been vomiting for a month but then later stated that she had been vomiting for the last week. She denies any abdominal pain. She had not had any documented fevers. She is chronically on oxygen and is on her usual 2 L of home O2 the patient reported pain to her buttocks for she has a stage II decubitus ulcer. Patient reports some mild cough but she is a poor historian. The patient would seemed answer question appropriately at times but then would state that she go to her mother's house to take care of her. She was also stating that she was ?out grocery shopping when she did not feel well and ended up in the hospital.? the patient has resided in a penitentiary for quite some time. She has been bed-bound and has decubitus ulcers but told me that just prior to my arrival she she had gotten up to go to the bathroom when she started vomiting. She is intermittently alert oriented times 1-2. The patient has bilateral decubitus ulcers to her heels with eschar covering them. However, the eschar fell off of the left heel while we were repositioning the patient. The patient had a Mendez catheter present on arrival to the ER. long term reported that the patient had a catheter placed 2 collect a 24 hour urine specimen for hemodialysis. It is unclear if the urine specimen was collected prior to the patient being since the ER or if the patient's simply has had only a few drops a urine output that is currently present in the catheter bag. On review of external medication history it appears that the patient received Cipro 12/08/2019 for a 7 day course. Given that the patient has had issues with recurrent C diff and the fact that the nursing staff reports the patient having watery smears of stool I ordered a CT of the abdomen pelvis which demonstrated mild diffuse colitis (preliminary read). Review of Systems Review of Systems: ROS unobtainable: Yes unobtainable due to medical condition and unobtainable due to mental status PMFSH Past Medical History Medical History (Updated 12/09/19 @ 22:48 by Jocelyne Antonio DO) Anxiety Atrial fibrillation New onset September 2019 C. difficile colitis Chronic anemia Chronic respiratory failure with hypoxia and hypercapnia On chronic home O2 of 2 L Chronic stasis dermatitis Cirrhosis With mild splenomegaly noted on CT of the abdomen and pelvis 09/27/2019. CVA (cerebral vascular accident) Right frontal parietal in 2011, with left side weakness. Diastolic CHF DVT (deep venous thrombosis) Left calf September 2019 End-stage renal disease on hemodialysis History of Clostridium difficile colitis Most recently hospitalized for C diff colitis September 2019 Hyperlipidemia Hypertension Osteoarthritis Seasonal allergies Severe pulmonary arterial systolic hypertension Rece
[2019-12-09 21:25] LABS: Glucose Point of Care 176 (65-105)
[2019-12-09] MEDS: FAMOTIDINE 20 MG TABLET PO (21:54)
[2019-12-09] MEDS: TOLNAFTATE 1% POWDER 45 GM BTL 1 APPLIC TOPICAL (21:54)
[2019-12-09] MEDS: SIMVASTATIN 20 MG TABLET 40 MG PO (21:55)
[2019-12-09 22:50] LABS: Alveolar/Arterial O2 Gradient 49.4 mmHg; Base Excess ABG -6.8 mEq/l (+/-2.0); Carboxyhemoglobin 0.3 % THb (0-2.0); Fractional Inspired Oxygen 28 %; HCO3 ABG 19.9 mEq/l (22.0-26.0); Methemoglobin ABG 0.4 %THb (0-1.5); Oxygen Content ABG 17.7 %vol (16.0-22.0); Oxygen Saturation ABG 96.6 % (95.0-100.0); Oxyhemoglobin 96.2 % THb (90.0-100.0); PCO2 ABG 44.3 mmHg (35.0-45.0); Reduced Hemoglobin 3.1 %THb (0-5.0)
[2019-12-09 22:52] LABS: Device NASAL CANNULA; Modified Allen's Test Pass; Site Drawn RIGHT RADIAL
[2019-12-10] VITALS (39 sets, daily range): BP systolic 80–139; BP diastolic 47–97; PULSE 45–73; RESP 15–23; TEMP 36.6–37.1; O2SAT 94–100; BMI 34.2
[2019-12-10] MEDS: SODIUM CHLORIDE 0.9% IV 1,000 ML 50 ML IV CONT ×2 (01:01→21:24)
--- NOTE | 2019-12-10 01:28 | PC.NURSE ---
Patient found by Meka Lima to be pulling on her left IJ central line. Patient confused and unable to be reoriented. States Get me off of this elevator before I strangle you. Reoriented to place and time without success. Encouraged to stay calm and not to pull on lines and tubes. Patient continues to pull on left IJ. Dr. Antonio notified. Order for soft wrist restraints obtained. Will evaluate need for restraints hourly and continue to attempt reorientation.
[2019-12-10 05:21] LABS: Basophils Absolute Auto 0.1 K/mm3 (0.0-0.1); Basophils Percent Auto 0.6 % (0.2-1.2); Eosinophils Absolute Auto 0.1 K/mm3 (0-0.3); Eosinophils Percent Auto 1.2 % (0-4.4); Hematocrit 38.1 % (37.0-47.0); Hemoglobin 11.6 g/dL (12.0-15.0); Immature Granulocyte Absolute 0.05 K/mm3 (0.00-0.031); Immature Granulocyte Percent A 0.5 % (0-0.5); Lymphocytes Absolute Auto 2.39 K/mm3 (0.9-3.2); Mean Corpuscular HGB Conc 30.4 g/dl (32-36); Mean Corpuscular Hemoglobin 30.7 pg (26-34); Mean Corpuscular Volume 100.8 fl (80-100); Mean Platelet Volume 10.4 fl (7.4-10.4); Monocytes Absolute Auto 1.2 K/mm3 (0.1-0.6); Monocytes Percent Auto 11.1 % (2.6-8.5); Neutrophils Percent Auto 64.6 % (45.5-73.1); Platelet Count Result 188 k/mm3 (150-375); Red Blood Count 3.78 M/mm3 (4.2-5.4); Red Cell Distribution Width 15.9 % (11.5-14.5); White Blood Count 10.9 K/mm3 (4.5-10.0)
[2019-12-10 05:32] LABS: Blood Urea Nitrogen 35 mg/dL (7-17); Calcium 8.2 mg/dL (8.4-10.2); Carbon Dioxide 21 mmol/L (22-30); Chloride 101 mmol/L (98-107); Estimated CRCL calculation 7 ml/min; Estimated Glomerular Filt Rate 5; Glucose 117 mg/dL (65-105); Potassium 3.8 mmol/L (3.4-5.0); Sodium 131 mmol/L (137-145)
[2019-12-10 07:41] LABS: Glucose Point of Care 110 (65-105)
--- NOTE | 2019-12-10 08:12 | PM.CNNEP ---
Assessment and Plan Assessment and plan (1) ESRD (end stage renal disease) on dialysis: Code(s): N18.6 - End stage renal disease; Z99.2 - Dependence on renal dialysis Status: Acute Assessment and Plan: Aurelia has end-stage renal disease. This is due to former hypertension, diabetes, and chronic pre renal azotemia from her severe pulmonary hypertension. She gets dialysis 3 times a week with a PermCath. She missed yesterday and so will do dialysis today. I wrote the orders. (2) Sepsis: Qualifiers: Sepsis type: sepsis due to unspecified organism Sepsis acute organ dysfunction status: without acute organ dysfunction Qualified Code(s): A41.9 - Sepsis, unspecified organism Code(s): A41.9 - Sepsis, unspecified organism Status: Acute Assessment and Plan: The patient is acting septic. She is unusually hypotensive. She has confusion which is a bit excessive even for her. There are several possible sources. She has a decubitus ulcer. She has pyuria of multiple organisms in the urine. She has a dialysis catheter which could be infected. However this exit site looks okay. The patient has green colitis on CT scan. The CT scan does say that this is improved. And she has no diarrhea or belly pain. Discussed with Dr Rod. He is going to get Dr. quarles involved. In the meantime the patient is on Dificid (3) Decubitus ulcer: Code(s): L89.90 - Pressure ulcer of unspecified site, unspecified stage Status: Acute Assessment and Plan: Care for this. (4) Atrial fibrillation: Qualifiers: Atrial fibrillation type: unspecified Qualified Code(s): I48.91 - Unspecified atrial fibrillation Code(s): I48.91 - Unspecified atrial fibrillation Status: Acute Assessment and Plan: Her heart rate is well controlled. She is on amiodarone and Eliquis. (5) Acute on chronic respiratory failure with hypoxia and hypercapnia: Code(s): J96.21 - Acute and chronic respiratory failure with hypoxia; J96.22 - Acute and chronic respiratory failure with hypercapnia Status: Acute Assessment and Plan: The patient has a respiratory and metabolic acidosis. Respiratory acidosis is due to the chronic respiratory failure. Her metabolic acidosis comes with an anion gap of 11. Her baseline anion gap is only 1-3 Her baseline bicarbonate level runs 31 or 32. She is currently 21. So treat her delta bicarb is 10. She has a Low bicarbonate with a ?high anion gap ? Lactate is okay. She has been getting dialysis routinely. So it should not be due to uremic toxins. We can check a beta hydroxybutyrate. Her sugars are okay so I doubt DKA. Could low caloric intake be causing some ketosis? Another thought: With a very low anion gap consider myeloma. Will check into this. (6) Chronic anemia: Code(s): D64.9 - Anemia, unspecified Status: Acute Assessment and Plan: Hemoglobin is low due to renal failure. The value is actually pretty good right now. 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 History of Present Illness Reason for Consult Consult date: 12/10/19 Chief Complaint Chief complaint: Hypotension History of Present Illness Narrative: Aurelia is a very pleasant 69-year-old lady who has multiple medical problems including end-stage renal disease on hemodialysis 3 times a week with a tunneled catheter, C diff colitis which has been chronic and ongoing, pulmonary hypertension, chronic hypercapnic respir
[2019-12-10] MEDS: AZTREONAM 1 GM in DEXTROSE 5% IN WATER 50 ML IVPB (08:18)
[2019-12-10] MEDS: ACIDOPHILUS/BULGARICUS CHEWABLE TABLET 1 TABLET PO ×2 (08:24→17:50)
[2019-12-10] MEDS: APIXABAN 5 MG TABLET PO ×2 (08:25→17:49)
[2019-12-10] MEDS: AMIODARONE HCL 200 MG TABLET PO (08:25)
[2019-12-10] MEDS: FIDAXOMICIN 200 MG TABLET PO ×2 (08:26→20:08)
[2019-12-10] MEDS: TOLNAFTATE 1% POWDER 45 GM BTL 1 APPLIC TOPICAL ×2 (08:27→20:08)
[2019-12-10] MEDS: PANTOPRAZOLE SODIUM IV 40 MG VIAL IV PUSH (08:27)
--- NOTE | 2019-12-10 09:04 | WPDCNINT ---
Assessment and Plan Assessment and plan (1) Septic shock: Code(s): A41.9 - Sepsis, unspecified organism; R65.21 - Severe sepsis with septic shock Status: Acute Assessment and Plan: Patient presented with hypotension, confusion from the dialysis center. Patient did not start her dialysis as she was hypotensive with systolics in the 70s -patient was given adequate fluid resuscitation in the ER, central line was inserted in the left IJ and patient started on Levophed and transfer the ICU -patient remains on Levophed, maintain systolic pressures greater than 100. (2) Atrial fibrillation: Code(s): I48.91 - Unspecified atrial fibrillation Status: Acute Assessment and Plan: on Eiquis, will continue for now currently in sinus with 1st degress block (3) Metabolic acidosis: Code(s): E87.2 - Acidosis Status: Acute Assessment and Plan: according to Dr. Gonzalez her bicarb is normal in 30s. - WIll be dilayzed today per nephrology (4) ESRD (end stage renal disease) on dialysis: Code(s): N18.6 - End stage renal disease; Z99.2 - Dependence on renal dialysis Status: Acute Assessment and Plan: ESRD on HD - neprhology following - HD today (5) UTI (urinary tract infection): Qualifiers: Encounter type: initial encounter Indwelling urinary catheter type: unspecified Urinary tract infection type: catheter-associated UTI Qualified Code(s): T83.511A - Infection and inflammatory reaction due to indwelling urethral catheter, initial encounter; N39.0 - Urinary tract infection, site not specified Code(s): N39.0 - Urinary tract infection, site not specified Status: Acute Assessment and Plan: UA showing UTI, received cefepime and vanc in ED - urine cx pending - Chronic sears - hx of citrobacter, Klebsiella and E.Coli UTI in September 2019 - started on aztreonam, - Consulted Infectious Disease (6) DVT (deep venous thrombosis): Qualifiers: Affected thrombotic vein of extremity: calf muscle vein Chronicity: acute DVT location: lower extremity Laterality: left Qualified Code(s): I82.462 - Acute embolism and thrombosis of left calf muscular vein Code(s): I82.409 - Acute embolism and thrombosis of unspecified deep veins of unspecified lower extremity Status: Acute Assessment and Plan: Venous Dopplers on 10/12/2019: Positive for interval development of left calf DVT - Patient on Eliquis and will continue (7) Diastolic CHF: Qualifiers: Heart failure chronicity: chronic Qualified Code(s): I50.32 - Chronic diastolic (congestive) heart failure Code(s): I50.30 - Unspecified diastolic (congestive) heart failure Status: Acute Assessment and Plan: Patient has a history of diastolic dysfunction, no echocardiogram in the system -will obtain echocardiogram (8) Heel ulcer: Qualifiers: Laterality: right Non-pressure ulcer stage: limited to breakdown of skin Qualified Code(s): L97.411 - Non-pressure chronic ulcer of right heel and midfoot limited to breakdown of skin Code(s): L97.409 - Non-pressure chronic ulcer of unspecified heel and midfoot with unspecified severity Status: Acute Assessment and Plan: Wound Care has been consulted (9) Decubitus ulcer: Code(s): L89.90 - Pressure ulcer of unspecified site, unspecified stage Status: Acute Assessment and Plan: Wound Care has been consulted Additional Plan Will discuss with family and updated them with patient's condition plan of care Code status: Full code Critical care time spent: 43 minutes Due to a high probability of clinically significant, life threatening deterioration, the patient required my highest level of preparedness to intervene emergently and I personally spent this critical care time directly and personally managing the patient. This critical care time included obtaining a hist
[2019-12-10] MEDS: HEPARIN SODIUM 1,000 UNITS/ML VIAL 1000 UNITS IV PUSH (11:10)
[2019-12-10] MEDS: SODIUM CHLORIDE 0.9% IV 1,000 ML 300 ML IV CONT (11:15)
[2019-12-10 11:23] LABS: Beta-Hydroxybutyrate/Acetoacetate 0.45 mmol/L (0.02-0.27)
[2019-12-10] MEDS: NOREPINEPHRINE 8 MG/D5W 250 ML 8 MG/250 ML BAG 11.3 MG IV CONT (11:48)
--- NOTE | 2019-12-10 11:56 | WPDINFPN2 ---
Progress Note: A&P Assessment and Plan (1) Hypotension: Qualifiers: Hypotension type: unspecified hypotension type Qualified Code(s): I95.9 - Hypotension, unspecified Code(s): I95.9 - Hypotension, unspecified Status: Acute Assessment and Plan: 1. Hypotension with tissue hypoperfusion, infectious vs other 2. CRF 3. Recent UTI and C diff infection 4. Multiple allergies REC Mendez in place, minimal U.O. at baseline. Aztreo # 1 (antibiotic #2) and fidaxomicin # 1. Multiple studies in process. Subjective Date/time seen: 12/10/19 11:56 Objective Data Vital Signs Vital Signs: Vital Signs - 24 hr 12/09/19 11:59 12/09/19 12:23 12/09/19 12:51 Temperature Pulse Rate 74 72 67 Respiratory Rate 21 H 22 H 16 Blood Pressure 83/54 L 91/54 L 81/59 L Pulse Oximetry 100 100 100 12/09/19 13:00 12/09/19 13:56 12/09/19 14:20 Temperature Pulse Rate 60 60 62 Respiratory Rate 19 20 20 Blood Pressure 88/64 L 79/57 L 97/41 L Pulse Oximetry 100 100 100 12/09/19 14:51 12/09/19 15:15 12/09/19 15:27 Temperature Pulse Rate 93 60 Respiratory Rate 20 20 Blood Pressure 91/58 L 88/66 L 93/68 L Pulse Oximetry 100 99 12/09/19 16:01 12/09/19 16:20 12/09/19 16:50 Temperature Pulse Rate 63 61 62 Respiratory Rate 20 20 Blood Pressure 130/72 109/60 115/67 Pulse Oximetry 100 100 100 12/09/19 17:05 12/09/19 18:00 12/09/19 18:29 Temperature Pulse Rate 66 67 64 Respiratory Rate 20 20 Blood Pressure 111/71 107/66 114/68 Pulse Oximetry 100 100 12/09/19 19:20 12/09/19 19:46 12/09/19 20:00 Temperature 36.6 C Pulse Rate 69 60 70 Respiratory Rate 20 20 22 H Blood Pressure 112/81 112/81 112/71 Pulse Oximetry 100 100 94 12/09/19 22:00 12/10/19 00:00 12/10/19 02:00 Temperature 37.1 C Pulse Rate 67 73 65 Respiratory Rate 23 H 19 18 Blood Pressure 115/83 115/97 H 91/65 L Pulse Oximetry 100 95 100 12/10/19 04:00 12/10/19 06:00 12/10/19 08:00 Temperature 37.0 C 36.6 C Pulse Rate 64 69 69 Respiratory Rate 18 23 H 16 Blood Pressure 102/57 L 105/55 L 104/73 Pulse Oximetry 100 100 98 12/10/19 08:25 12/10/19 09:36 12/10/19 11:00 Temperature Pulse Rate 66 63 Respiratory Rate 21 H Blood Pressure 112/56 L Pulse Oximetry 98 100 Intake/Output Intake/Output: Intake & Output 12/07/19 12/08/19 12/09/19 12/10/19 23:59 23:59 23:59 23:59 Intake Total 3550 0 Output Total 10 Balance 3550 -10 Meds/Results Medications: Active Medications Generic Name Dose Route Start Last Admin Trade Name Freq PRN Reason Stop Dose Admin Acetaminophen 650 mg 12/09/19 20:42 Tylenol Tablet PO Q4H PRN Mild Pain (1-5) Or Fever Albuterol 5 mg 12/09/19 20:42 Albuterol Sulf Neb 2.5mg/0.5ml INHALATION Q6HRT PRN Shortness Of Breath Or Wheezing Alprazolam 0.5 mg 12/09/19 20:42 Xanax PO HS PRN Anxiety Amiodarone HCl 200 mg 12/10/19 09:00 12/10/19 08:25 Pacerone PO 200 mg DAILY DEJON Administration Apixaban 5 mg 12/10/19 09:00 12/10/19 08:25 Eliquis PO 5 mg BID DEJON Administration Artificial Tears 1 drop 12/09/19 20:42 Artificial Tears EACH EYE QID PRN Dry Eye(S) Cholestyramine Resin 4 gm 12/10/19 10:00 Questran Light Packet PO BID@1000,1800 DEJON Dextrose 12.5 gm 12/09/19 20:39 Dextrose 50% Syringe IV PUSH PRN PRN Hypoglycemia Protocol Fidaxomicin 200 mg 12/10/19 09:00 12/10/19 08:26 Dificid PO 200 mg Q12HR DEJON Administration Glucagon 1 mg 12/09/19 20:39 Glucagon For Inj IM PRN PRN Hypoglycemia Protocol Glucose 15 gm 12/09/19 20:39 Glutose 15 PO PRN PRN Hypoglycemia Protocol Dextrose 1,000 mls @ 100 mls/hr 12/09/19 20:39 Dextrose 5% 1,000 Ml IVPB PRN PRN Hypoglycemia Protocol Norepinephrine Bitartrate 8 mg in 250 mls @ 11.25 mls/hr 12/09/19 22:50 Levophed 8 M
[2019-12-10 12:11] LABS: Hepatitis B Surface Antigen Negative (Negative)
[2019-12-10] MEDS: HEPARIN SODIUM 1,000 UNITS/ML VIAL 500 UNITS IV PUSH ×2 (12:15→13:15)
[2019-12-10 12:18] LABS: Glucose Point of Care 105 (65-105)
[2019-12-10 12:30] LABS: Hepatitis B Surface Anti Res Negative
[2019-12-10] MEDS: SODIUM CHLORIDE 0.9% IV 1,000 ML 999 ML IV CONT (13:30)
--- NOTE | 2019-12-10 14:51 | PM.IMPN ---
Progress Note: A&P Assessment and Plan (1) Hypotension: Qualifiers: Hypotension type: unspecified hypotension type Qualified Code(s): I95.9 - Hypotension, unspecified Code(s): I95.9 - Hypotension, unspecified Status: Acute Assessment and Plan: Likely due to septic shock with likely C diff colitis given CT findings. The patient received empiric cefepime and vanc in the ER due to pyuria. However I suspect pyuria may be due to the patient's chronic low urine output and be more of a asymptomatic issue. Will hold off on giving any further antibiotics for UTI and await urine culture. Will start the patient on Dificid. Infectious disease with has been consult on the patient has they had previously recommended a week course of vancomycin which the patient completed November 17. Will await further recommendations given her recurrence after such a long taper. The patient's Levophed was initially at 15 mcg on arrival to the ICU but has been weaned down to 8. 12/10/19 14:51 With history of end-stage disease on hemodialysis yesterday during her dialysis patient was hypotensive and was sent to emergency department for further evaluation but emergency depart patient blood pressure was low and patient was started on Levophed and transferred to ICU, patient had been treated recently for C diff with oral vancomycin and had a complaint of nausea or vomiting time 2 mostly stomach content, and diarrhea most likely patient has C diff, patient is seen by Dr. quarles started the patient on Aztreo # 1 (antibiotic #2) and fidaxomicin # 1. Currently patient in ICU receiving dialysis, patient is not very cooperative will not answer any question and does not want to be examined (2) ESRD (end stage renal disease) on dialysis: Code(s): N18.6 - End stage renal disease; Z99.2 - Dependence on renal dialysis Status: Acute Assessment and Plan: Will consult nephrology for dialysis management. Subjective Date/time seen: 12/10/19 14:51 With history of end-stage disease on hemodialysis yesterday during her dialysis patient was hypotensive and was sent to emergency department for further evaluation but emergency depart patient blood pressure was low and patient was started on Levophed and transferred to ICU, patient had been treated recently for C diff with oral vancomycin and had a complaint of nausea or vomiting time 2 mostly stomach content, and diarrhea most likely patient has C diff, patient is seen by Dr. quarles started the patient on Aztreo # 1 (antibiotic #2) and fidaxomicin # 1. Currently patient in ICU receiving dialysis, patient is not very cooperative will not answer any question and does not want to be examined Review of Systems Review of Systems: ROS unobtainable: Yes unobtainable due to medical condition Exam Narrative: Exam Narrative: Patient is angry and not cooperative Const: General: comfortable and no acute distress HENMT: General nose exam: Normal nares present Eyes: General: appearance normal, both eyes and all related structures Sclera: sclerae normal Neck: Other: No retraction Resp: Effort & Inspection: normal respiratory effort GI: Other: Not distended Skin: General skin exam: normal color Neuro: Other: Patient is quite agitated not very cooperative Extrem: General: normal to inspection Psych: Affect: Hostile affect present Attitude: Belligerent attititude/behavior present Objective Data Vital Signs Vital Signs: Vital Signs - 24 hr 12/09/19 15:15 12/09/19 15:27 12/09/19 16:01 Temperature Pulse Rate 60 63 Respiratory Rate 20 20 Blood Pressure 88/66 L 93/68 L 130/72 Pulse Oximetry 99 100 12/09/19 16:20 12/09/19 16:50 12/09/19 17:05 Temperature Pulse Rate 61 62 66 Respiratory Rate 20 Blood Pressure 109/60 115/67 111/71 Pulse Oximetry 100 100 12/09/19 18:00 12/09/19 18:29 12/09/19 19:20 Temperature Pulse Rate 67 64 69 Respiratory Rate 2
--- NOTE | 2019-12-10 17:50 | CONS_ITS ---
DATE OF CONSULTATION: 12/10/2019 REASON FOR CONSULTATION: Hypotension. HISTORY OF PRESENT ILLNESS: The patient is a 69-year-old female, known to me from September when she had C. difficile infection. She also had previous urinary tract infection as well, which was treated. She has been on extended vancomycin tail and completed last month. She was given ciprofloxacin for unknown reasons, 1 day prior to admission and was admitted here yesterday from her dialysis center with hypotension, having not received any dialysis yesterday. She has been given cefepime, vancomycin, single dose of aztreonam today and consultation requested. She has required vasopressors. No mechanical ventilation. She had a left IJ triple-lumen catheter placed. Mendez was also placed prior to admission approximately 1 day, but she has little urine output at baseline. The patient is confused and cannot provide any historical information nor symptoms about current symptoms. ALLERGIES: PENICILLIN HIVES, SULFA HIVES. CLINDAMYCIN UNKNOWN. PRESENT MEDICATIONS: No immunosuppressants. HABITS: Ex-smoker. PAST MEDICAL HISTORY: In addition to the above, chronic renal failure, type 2 diabetes mellitus, sleep apnea, splenic infarct, PAH, seasonal allergies, osteoarthritis, hypertension, hyperlipidemia, prior DVT, stroke, cirrhosis, stasis dermatitis, AF, chronic respiratory failure, arthroscopic knee surgery, umbilical hernia repair, BTL. REVIEW OF SYSTEMS: 14-point review attempted, not obtainable from the patient in a meaningful fashion due to confusion. FAMILY HISTORY: Not pertinent to her present illness. SOCIAL HISTORY: She is , group home resident. Children lives locally. PHYSICAL EXAMINATION: GENERAL: This is an elderly female, appears her actual age, hostile. No respiratory distress. VITAL SIGNS: Afebrile since arrival here last evening. Blood pressure 127/63, pulse 60, respirations 21, 2 L O2. SKIN: She has stasis dermatitis changes, both distal legs. No rashes. Warm and dry. She has a sacral decubitus ulcer. EENT: The conjunctivae are normal. Pupils equal, round, reactive. Oral mucosa is also normal. NECK: Without meningismus or mass. LUNGS: Clear to auscultation on tidal respirations. CARDIAC: Regular rate and rhythm. No murmurs or gallops. ABDOMEN: Obese, nontender. No organomegaly. No masses. EXTREMITIES: 1+ not pitting ankle edema. Well perfused. She has a right side dialysis catheter and left side IJ triple-lumen. LABORATORY DATA: White count 10.9, hemoglobin 11.6, platelets are 188. Differential with a mild monocytosis. Blood gas 7.27, 44, 98, 20, 96%. Sodium 131, CO2 is 21, BUN 35, creatinine 7.6, glucose 117, calcium is low. Hepatitis panel is nonreactive. RADIOLOGY: Chest x-ray done on admission, appropriate line placement, elevated right hemidiaphragm, atelectasis. CT of the abdomen and pelvis is performed today shows pancolitis, improved since 10/07/2019. Other chronic findings reviewed and noncontributory. ASSESSMENT: 1. Hypotension, possible septic shock with hypoperfusion. Consider urinary, GI or other etiologies. Respiratory tract infection is less likely. I doubt primary bloodstream infection. 2. Chronic renal failure. 3. Recent C. difficile infection, potentially relapsed with the recent antibiotics. 4. Chronic stasis dermatitis without cellulitis. RECOMMENDATIONS: 1. Agree with fidaxomicin and aztreonam day #1. 2. Follow up on multiple studies are in process. 3. We will follow up and advise on any changes. Thank you very much for asking me to see her. LUCAS AVERY M.D. CORK PAINTER AND GRADER DT:
[2019-12-10 18:15] LABS: Glucose Point of Care 137 (65-105)
[2019-12-11] VITALS (22 sets, daily range): BP systolic 84–124; BP diastolic 47–71; PULSE 7–77; RESP 15–25; TEMP 36.3–37.1; O2SAT 96–100
--- NOTE | 2019-12-11 | ECHO_ITS ---
Patient Info Name: Aurelia Alcantara Age: 69 years : 1950 Gender: Female Ht: 65 in Wt: 205 lbs BSA: 2.10 m2 HR: 60 bpm BP: 84 / 47 mmHg Heart Rhythm: Sinus Rhythm Technical Quality: Fair Exam Date: 12/11/2019 10:21 AM Exam Location: [facility] Pulmonary Patient Status: Inpatient Admit Date: 12/10/2019 Staff Ordering Physician: Baltazar Rod MD Furniture Designer: Joce Hodge RDCS Attending Provider: Riki Diaz MD Referring Physician: Marcel PATEL; Exam Type: CA echo dop color flow w con Study Info Indications I50.30 - Unspecified diastolic (congestive) heart failure Complete two-dimensional, color flow and Doppler transthoracic echocardiogram is performed with contrast to opacify the left ventricle and to improve the deliniation of the left ventricle endocardial borders. Contrast/Agitated Saline Contrast/Ag. Saline: Definity Amount: 2.00 ml Administered By: Zara Hill RN Existing IV Access: Yes History/Risk Factors ESRD; HoTN, sepsis, Afib, HFpEF. Summary 1. Left ventricular chamber dimension is normal. 2. Left ventricular systolic function is normal, estimated at 65-70%. 3. There is moderately increased left ventricular wall thickness. 4. The left ventricular diastolic function is grade I diastolic dysfunction. 5. E/e' 18 is elevated. 6. The mitral valve has moderately calcified annulus. 7. There is mild to moderate tricuspid valve regurgitation. 8. No pulmonary hypertension, estimated pulmonary arterial systolic pressure is 36 mmHg. Left Ventricle E/e' 18 is elevated. Left ventricular chamber dimension is normal. Left ventricular systolic function is normal, estimated at 65-70%. There is moderately increased left ventricular wall thickness. The left ventricular diastolic function is grade I diastolic dysfunction. Right Ventricle Right ventricular chamber dimension is normal. Right ventricular systolic function is normal. Left Atria Left atrial chamber dimension is normal. Right Atria Right atrial chamber dimension is normal. Aortic Valve The aortic valve is trileaflet. There is no aortic valve stenosis. There is no aortic valve regurgitation. Pulmonic Valve There is no pulmonic regurgitation. Mitral Valve The mitral valve has moderately calcified annulus. There is no mitral valve stenosis. There is no mitral valve regurgitation. Tricuspid Valve The tricuspid valve leaflets are not well visualized. There is mild to moderate tricuspid valve regurgitation. No pulmonary hypertension, estimated pulmonary arterial systolic pressure is 36 mmHg. Pericardium/Pleural There is no pericardial effusion. Inferior Vena Cava Normal inferior vena cava with >50% collapse upon inspiration consistent with normal right atrial pressure, 5 mmHg. Aorta The aortic root size at the sinus of Valsalva is normal. Left Ventricular Outflow Tract Name Value Normal LVOT 2D LVOT Diameter 2.04 cm LVOT Doppler LVOT Peak Gradient 5 mmHg LVOT Mean Gradient 3 mmHg
[2019-12-11 04:09] LABS: Basophils Absolute Auto 0.1 K/mm3 (0.0-0.1); Basophils Percent Auto 0.7 % (0.2-1.2); Eosinophils Absolute Auto 0.2 K/mm3 (0-0.3); Eosinophils Percent Auto 2.5 % (0-4.4); Hematocrit 36.1 % (37.0-47.0); Hemoglobin 11.1 g/dL (12.0-15.0); Immature Granulocyte Absolute 0.02 K/mm3 (0.00-0.031); Immature Granulocyte Percent A 0.3 % (0-0.5); Lymphocytes Absolute Auto 1.42 K/mm3 (0.9-3.2); Lymphocytes Percent Auto 19.7 % (18.3-44.2); Mean Corpuscular HGB Conc 30.7 g/dl (32-36); Mean Corpuscular Volume 100.8 fl (80-100); Mean Platelet Volume 10.5 fl (7.4-10.4); Monocytes Absolute Auto 0.9 K/mm3 (0.1-0.6); Monocytes Percent Auto 11.8 % (2.6-8.5); Neutrophils Absolute Auto 4.7 K/mm3 (1.3-6.7); Platelet Count Result 156 k/mm3 (150-375); Red Blood Count 3.58 M/mm3 (4.2-5.4); Red Cell Distribution Width 15.9 % (11.5-14.5); White Blood Count 7.2 K/mm3 (4.5-10.0)
[2019-12-11 04:22] LABS: Blood Urea Nitrogen 15 mg/dL (7-17); Calcium 7.6 mg/dL (8.4-10.2); Carbon Dioxide 31 mmol/L (22-30); Chloride 100 mmol/L (98-107); Estimated CRCL calculation 14 ml/min; Estimated Glomerular Filt Rate 12; Glucose 122 mg/dL (65-105); Magnesium 1.7 mg/dL (1.6-2.3); Phosphorus 3.6 mg/dL (2.5-4.5); Potassium 3.7 mmol/L (3.4-5.0); Sodium 132 mmol/L (137-145)
--- NOTE | 2019-12-11 07:52 | WPDINTPN ---
Progress Note: A&P Assessment and Plan (1) Septic shock: Code(s): A41.9 - Sepsis, unspecified organism; R65.21 - Severe sepsis with septic shock Status: Acute Assessment and Plan: Patient presented with hypotension, confusion from the dialysis center. Patient did not start her dialysis as she was hypotensive with systolics in the 70s -Levophed requirements trending down, maintain media arterial pressures > 65 mmHg -blood cultures negative x2, - urine cultures growing gram-negative rods, identification and sensitivities pending -patient on aztreonam infectious disease following the patient -patient with green colitis and recent C diff colitis, continue fidaxomicin, lactobacillus, cholestyramine (2) Atrial fibrillation: Code(s): I48.91 - Unspecified atrial fibrillation Status: Acute Assessment and Plan: on Eiquis, will continue for now currently in sinus with 1st degress block (3) Metabolic acidosis: Code(s): E87.2 - Acidosis Status: Acute Assessment and Plan: according to Dr. Gonzalez her bicarb is normal in 30s. -patient dialyzed on 12/10/2019 -metabolic acidosis resolved (4) ESRD (end stage renal disease) on dialysis: Code(s): N18.6 - End stage renal disease; Z99.2 - Dependence on renal dialysis Status: Acute Assessment and Plan: ESRD on HD -HD per nephrology (5) UTI (urinary tract infection): Qualifiers: Encounter type: initial encounter Indwelling urinary catheter type: unspecified Urinary tract infection type: catheter-associated UTI Qualified Code(s): T83.511A - Infection and inflammatory reaction due to indwelling urethral catheter, initial encounter; N39.0 - Urinary tract infection, site not specified Code(s): N39.0 - Urinary tract infection, site not specified Status: Acute Assessment and Plan: UA showing UTI, received cefepime and vanc in ED - urine cx growing gram-negative bacilli, identification and sensitivities pending - Chronic sears - hx of citrobacter, Klebsiella and E.Coli UTI in September 2019 -continue aztreonam, appreciate Infectious Disease evaluation and recommendations (6) DVT (deep venous thrombosis): Qualifiers: DVT location: lower extremity Affected thrombotic vein of extremity: calf muscle vein Chronicity: acute Laterality: left Qualified Code(s): I82.462 - Acute embolism and thrombosis of left calf muscular vein Code(s): I82.409 - Acute embolism and thrombosis of unspecified deep veins of unspecified lower extremity Status: Acute Assessment and Plan: Venous Dopplers on 10/12/2019: Positive for interval development of left calf DVT - Patient on Eliquis and will continue (7) Diastolic CHF: Qualifiers: Heart failure chronicity: chronic Qualified Code(s): I50.32 - Chronic diastolic (congestive) heart failure Code(s): I50.30 - Unspecified diastolic (congestive) heart failure Status: Acute Assessment and Plan: Patient has a history of diastolic dysfunction, no echocardiogram in the system -echocardiogram has been ordered and pending (8) Heel ulcer: Qualifiers: Laterality: right Non-pressure ulcer stage: limited to breakdown of skin Qualified Code(s): L97.411 - Non-pressure chronic ulcer of right heel and midfoot limited to breakdown of skin Code(s): L97.409 - Non-pressure chronic ulcer of unspecified heel and midfoot with unspecified severity Status: Acute Assessment and Plan: Wound Care has been consulted and appreciate evaluation recommendation (9) Decubitus ulcer: Code(s): L89.90 - Pressure ulcer of unspecified site, unspecified stage Status: Acute Assessment and Plan: Wound Care has been consulted and appreciate their evaluation and recommendation Additional Plan Discussed with patient updated her with her condition and plan of care Code status: Full code Critical care time
[2019-12-11] MEDS: AZTREONAM 1 GM in DEXTROSE 5% IN WATER 50 ML IVPB (08:18)
[2019-12-11] MEDS: APIXABAN 5 MG TABLET PO ×2 (08:19→17:47)
[2019-12-11] MEDS: TOLNAFTATE 1% POWDER 45 GM BTL 1 APPLIC TOPICAL ×2 (08:19→20:07)
[2019-12-11] MEDS: AMIODARONE HCL 200 MG TABLET PO (08:19)
[2019-12-11] MEDS: PANTOPRAZOLE SODIUM IV 40 MG VIAL IV PUSH (08:19)
[2019-12-11] MEDS: ACIDOPHILUS/BULGARICUS CHEWABLE TABLET 1 TABLET PO ×4 (08:19→20:06)
[2019-12-11] MEDS: FIDAXOMICIN 200 MG TABLET PO ×2 (08:19→20:07)
[2019-12-11 09:06] LABS: Glucose Point of Care 104 (65-105)
[2019-12-11] MEDS: PERFLUTREN LIPID MICROSPHERES 1.5 ML VIAL DILUTED TO 10 ML TOTAL VOLUME IV PUSH (10:59)
--- NOTE | 2019-12-11 11:09 | PCDIET ---
ICU Rounding Note: Patient is refusing most meals on diabetic renal dialysis diet. Only agreed to juice with medications this morning, per RN. Recommend continuing to offer Nepro, as mental status has improved somewhat from yesterday. Last recorded weight is 93.3kg which is stable. Bowel Motility: +BM today. Labs Reviewed: Cr (3.8), Na (132), Ca (7.6) Meds Noted: Albuterol, Aztreonam, Questran, Precedex, Dificid, Novolog, Lactinex, Levophed Additional Notes: Left buttock macerated. Bilateral heels with pressure ulcers. Will continue to follow closely. If no improvement in intakes over the next day or two, may need to consider nutrition support. Following daily in ICU rounds. Assessing/reassessing every 3 days.
[2019-12-11 14:08] LABS: Glucose Point of Care 101 (65-105)
--- NOTE | 2019-12-11 14:08 | PM.IMPN ---
Progress Note: A&P Assessment and Plan (1) Hypotension: Qualifiers: Hypotension type: unspecified hypotension type Qualified Code(s): I95.9 - Hypotension, unspecified Code(s): I95.9 - Hypotension, unspecified Status: Acute Assessment and Plan: Likely due to septic shock with likely C diff colitis given CT findings. The patient received empiric cefepime and vanc in the ER due to pyuria. However I suspect pyuria may be due to the patient's chronic low urine output and be more of a asymptomatic issue. Will hold off on giving any further antibiotics for UTI and await urine culture. Will start the patient on Dificid. Infectious disease with has been consult on the patient has they had previously recommended a week course of vancomycin which the patient completed November 17. Will await further recommendations given her recurrence after such a long taper. The patient's Levophed was initially at 15 mcg on arrival to the ICU but has been weaned down to 8. 12/11/19 14:08 With history of end-stage disease on hemodialysis yesterday during her dialysis patient was hypotensive and was sent to emergency department for further evaluation but emergency depart patient blood pressure was low and patient was started on Levophed and transferred to ICU, patient had been treated recently for C diff with oral vancomycin and had a complaint of nausea or vomiting time 2 mostly stomach content, and diarrhea most likely patient has C diff, patient is seen by Dr. quarles started the patient on Aztreo # 1 (antibiotic #2) and fidaxomicin # 1. Currently patient in ICU receiving dialysis, today patient is more cooperative and pleasant, denies any complaint of chest pain shortness of breath palpitation fever or chills patient is negative for C diff, patient blood pressure still running low patient is on norepinephrine patient is seen by clinching machine operator, supervisor labor gang and Dr. quarles appreciate (2) ESRD (end stage renal disease) on dialysis: Code(s): N18.6 - End stage renal disease; Z99.2 - Dependence on renal dialysis Status: Acute Assessment and Plan: Will consult nephrology for dialysis management. Additional Plan 50 minutes spent in critical care activities. This case had a high probability of a clinically significant, sudden, or life threatening deterioration of this patient's condition which required my full and direct attention, intervention and personal management. Subjective Date/time seen: 12/11/19 14:08 With history of end-stage disease on hemodialysis yesterday during her dialysis patient was hypotensive and was sent to emergency department for further evaluation but emergency depart patient blood pressure was low and patient was started on Levophed and transferred to ICU, patient had been treated recently for C diff with oral vancomycin and had a complaint of nausea or vomiting time 2 mostly stomach content, and diarrhea most likely patient has C diff, patient is seen by Dr. quarles started the patient on Aztreo # 1 (antibiotic #2) and fidaxomicin # 1. Currently patient in ICU receiving dialysis, today patient is more cooperative and pleasant, denies any complaint of chest pain shortness of breath palpitation fever or chills patient is negative for C diff, patient blood pressure still running low patient is on norepinephrine patient is seen by clinching machine operator, supervisor labor gang and Dr. quarles appreciate Review of Systems Review of Systems: All systems reviewed & are unremarkable except as noted in HPI and below Exam Const: General: comfortable and no acute distress HENMT: General nose exam: Normal nares present Eyes: General: appearance normal, both eyes and all related structures Sclera: sclerae normal Neck: Other: No retraction Resp: Effort & Inspection: normal respiratory effort Auscultation: clear to auscultation bilaterally Cardio: Rate: regular rate Rhythm: regular rhythm GI: Auscultation: normal bowel
--- NOTE | 2019-12-11 16:22 | PM.PNNEP ---
Progress Note: A&P Assessment and Plan (1) ESRD (end stage renal disease) on dialysis: Code(s): N18.6 - End stage renal disease; Z99.2 - Dependence on renal dialysis Status: Acute Assessment and Plan: Aurelia has end-stage renal disease. This is due to former hypertension, diabetes, and chronic pre renal azotemia from her severe pulmonary hypertension. Dialysis tomorrow. (2) Sepsis: Qualifiers: Sepsis acute organ dysfunction status: without acute organ dysfunction Sepsis type: sepsis due to unspecified organism Qualified Code(s): A41.9 - Sepsis, unspecified organism Code(s): A41.9 - Sepsis, unspecified organism Status: Acute Assessment and Plan: The patient is acting septic. She is unusually hypotensive. She has confusion which is a bit excessive even for her. Dr. quarles on the case. (3) Decubitus ulcer: Code(s): L89.90 - Pressure ulcer of unspecified site, unspecified stage Status: Acute Assessment and Plan: Local wound Care for this. (4) Atrial fibrillation: Qualifiers: Atrial fibrillation type: unspecified Qualified Code(s): I48.91 - Unspecified atrial fibrillation Code(s): I48.91 - Unspecified atrial fibrillation Status: Acute Assessment and Plan: Her heart rate is well controlled. She is on amiodarone and Eliquis. (5) Acute on chronic respiratory failure with hypoxia and hypercapnia: Code(s): J96.21 - Acute and chronic respiratory failure with hypoxia; J96.22 - Acute and chronic respiratory failure with hypercapnia Status: Acute Assessment and Plan: The patient has a respiratory and metabolic acidosis. Bhob barely high. Await immunofixation. (6) Chronic anemia: Code(s): D64.9 - Anemia, unspecified Status: Acute Assessment and Plan: Hemoglobin is low due to renal failure. (7) Type 2 diabetes mellitus: Qualifiers: Diabetes mellitus complication status: with hyperglycemia Diabetes mellitus buttermaker continuous churn insulin use: with buttermaker continuous churn use Qualified Code(s): E11.65 - Type 2 diabetes mellitus with hyperglycemia; Z79.4 - residential (current) use of insulin Code(s): E11.9 - Type 2 diabetes mellitus without complications Status: Acute Assessment and Plan: On Accu-Cheks and sliding-scale insulin. Subjective Date/time seen: 12/11/19 16:22 Interval history: The patient is alert. She knows she is in [facility] and that it is 2020. She is intermittently confused and has been overnight and yesterday. No diarrhea. Review of Systems Cardiovascular: Cardiovascular: Reports no additional cardiovascular complaints Respiratory: Respiratory: Reports no additional respiratory complaints Gastrointestinal: Gastrointestinal: Reports no additional gastrointestinal complaints Genitourinary: Genitourinary: Reports no additional female genitourinary complaints Exam Narrative: Exam Narrative: WDWN in NAD skin no rash head ncat lungs clear cor reg no rub abd BS+ nontender and soft ext no edema. Objective Data Vital Signs Vital Signs: Vital Signs - 24 hr 12/10/19 18:00 12/10/19 19:02 12/10/19 19:16 Temperature Pulse Rate 54 L 53 L 53 L Respiratory Rate 16 20 19 Blood Pressure 99/55 L 113/47 L 116/92 H Pulse Oximetry 100 100 99 12/10/19 19:31 12/10/19 19:46 12/10/19 20:00 Temperature Pulse Rate 52 L 52 L 53 L Respiratory Rate 22 H 16 15 Blood Pressure 111/66 126/64 Pulse Oximetry 100 100 100 12/10/19 20:02 12/10/19 20:32 12/10/19 20:47 Temperature Pulse Rate 53 L 51 L 49 L Respiratory Rate 17 16 18 Blood Pressure 123/65 88/55 L 103/57 L Pulse Oximetry 100 100 100 12/10/19 21:01 12/10/19 22:00 12/10/19 23:33 Temperature Pulse Rate 56 L 48 L 45 L Respiratory Rate 19 16 16 Blood Pressure 110/54 L 100/51 L 110/52 L Pulse Oximetry 100 100 100 12/11/19 00:00 12/11/19 00:01 12/11/19 00:31 Te
[2019-12-11] MEDS: SODIUM CHLORIDE 0.9% IV 1,000 ML 50 ML IV CONT (17:38)
[2019-12-11] MEDS: CHOLESTYRAMINE LIGHT 4 GM POWD.PACK PO (17:47)
[2019-12-11] MEDS: ONDANSETRON INJ 4 MG/2 ML VIAL IV PUSH (17:53)
[2019-12-11 17:57] LABS: Glucose Point of Care 77 (65-105)
[2019-12-11] MEDS: SIMVASTATIN 20 MG TABLET 40 MG PO (20:07)
[2019-12-11 20:35] LABS: Glucose Point of Care 87 (65-105)
[2019-12-12] VITALS (32 sets, daily range): BP systolic 91–150; BP diastolic 50–101; PULSE 70–113; RESP 18–26; TEMP 36.1–37; O2SAT 95–100
[2019-12-12] MEDS: NOREPINEPHRINE 8 MG/D5W 250 ML 8 MG/250 ML BAG 3.8 MG IV CONT (01:00)
[2019-12-12 04:36] LABS: Basophils Percent Auto 0.5 % (0.2-1.2); Eosinophils Absolute Auto 0.1 K/mm3 (0-0.3); Eosinophils Percent Auto 1.6 % (0-4.4); Hematocrit 35.5 % (37.0-47.0); Hemoglobin 10.8 g/dL (12.0-15.0); Immature Granulocyte Absolute 0.02 K/mm3 (0.00-0.031); Immature Granulocyte Percent A 0.3 % (0-0.5); Lymphocytes Absolute Auto 2.02 K/mm3 (0.9-3.2); Mean Corpuscular HGB Conc 30.4 g/dl (32-36); Mean Corpuscular Hemoglobin 30.3 pg (26-34); Mean Corpuscular Volume 99.7 fl (80-100); Mean Platelet Volume 9.9 fl (7.4-10.4); Monocytes Absolute Auto 0.9 K/mm3 (0.1-0.6); Monocytes Percent Auto 11.6 % (2.6-8.5); Neutrophils Absolute Auto 4.4 K/mm3 (1.3-6.7); Platelet Count Result 159 k/mm3 (150-375); Red Blood Count 3.56 M/mm3 (4.2-5.4); Red Cell Distribution Width 15.6 % (11.5-14.5); White Blood Count 7.5 K/mm3 (4.5-10.0)
[2019-12-12 04:49] LABS: Lactic Acid 0.6 mmol/L (0.7-2.1)
[2019-12-12 04:50] LABS: Albumin Level 2.3 g/dL (3.5-5.1); Blood Urea Nitrogen 20 mg/dL (7-17); Calcium 7.6 mg/dL (8.4-10.2); Carbon Dioxide 25 mmol/L (22-30); Chloride 102 mmol/L (98-107); Estimated CRCL calculation 11 ml/min; Estimated Glomerular Filt Rate 9; Glucose 81 mg/dL (65-105); Phosphorus 3.9 mg/dL (2.5-4.5); Potassium 3.5 mmol/L (3.4-5.0); Sodium 133 mmol/L (137-145)
[2019-12-12] MEDS: ONDANSETRON INJ 4 MG/2 ML VIAL IV PUSH ×3 (06:52→19:46)
[2019-12-12 07:23] LABS: Magnesium 1.7 mg/dL (1.6-2.3)
[2019-12-12 07:38] LABS: Glucose Point of Care 77 (65-105)
--- NOTE | 2019-12-12 08:05 | WPDINTPN ---
Progress Note: A&P Assessment and Plan (1) Septic shock: Code(s): A41.9 - Sepsis, unspecified organism; R65.21 - Severe sepsis with septic shock Status: Acute Assessment and Plan: Patient presented with hypotension, confusion from the dialysis center. Patient did not start her dialysis as she was hypotensive with systolics in the 70s -Levophed requirements trending down, maintain media arterial pressures > 65 mmHg -blood cultures negative x2, - urine cultures growing Citrobacter freundii -patient on aztreonam infectious disease following the patient -patient with green colitis and recent C diff colitis, continue fidaxomicin, lactobacillus, cholestyramine -will start midodrine (2) Atrial fibrillation: Qualifiers: Atrial fibrillation type: unspecified Qualified Code(s): I48.91 - Unspecified atrial fibrillation Code(s): I48.91 - Unspecified atrial fibrillation Status: Acute Assessment and Plan: on Eiquis, will continue for now currently in sinus with 1st degress block (3) Metabolic acidosis: Code(s): E87.2 - Acidosis Status: Acute Assessment and Plan: Resolved: Patient had metabolic acidosis on admission likely related to septic shock, hypovolemia, decreased and open perfusion - according to Dr. Gonzalez her bicarb is normal in 30s. -patient dialyzed on 12/10/2019 (4) ESRD (end stage renal disease) on dialysis: Code(s): N18.6 - End stage renal disease; Z99.2 - Dependence on renal dialysis Status: Acute Assessment and Plan: ESRD on HD -HD per nephrology (5) UTI (urinary tract infection): Qualifiers: Encounter type: initial encounter Indwelling urinary catheter type: unspecified Urinary tract infection type: catheter-associated UTI Qualified Code(s): T83.511A - Infection and inflammatory reaction due to indwelling urethral catheter, initial encounter; N39.0 - Urinary tract infection, site not specified Code(s): N39.0 - Urinary tract infection, site not specified Status: Acute Assessment and Plan: UA showing UTI, received cefepime and vanc in ED - urine cx growing Citrobacter freundii - Chronic sears - hx of citrobacter, Klebsiella and E.Coli UTI in September 2019 -continue aztreonam, appreciate Infectious Disease evaluation and recommendations (6) DVT (deep venous thrombosis): Qualifiers: DVT location: lower extremity Affected thrombotic vein of extremity: calf muscle vein Chronicity: acute Laterality: left Qualified Code(s): I82.462 - Acute embolism and thrombosis of left calf muscular vein Code(s): I82.409 - Acute embolism and thrombosis of unspecified deep veins of unspecified lower extremity Status: Acute Assessment and Plan: Venous Dopplers on 10/12/2019: Positive for interval development of left calf DVT - Patient on Eliquis and will continue (7) Diastolic CHF: Qualifiers: Heart failure chronicity: chronic Qualified Code(s): I50.32 - Chronic diastolic (congestive) heart failure Code(s): I50.30 - Unspecified diastolic (congestive) heart failure Status: Acute Assessment and Plan: Patient has a history of diastolic dysfunction, no echocardiogram in the system -echocardiogram 12/11/2019: Normal LV chamber dimension, EF 65-70%. Grade 1 diastolic dysfunction. [id number] tricuspid regurg coma RVSP 36 mmHg (8) Heel ulcer: Qualifiers: Laterality: right Non-pressure ulcer stage: limited to breakdown of skin Qualified Code(s): L97.411 - Non-pressure chronic ulcer of right heel and midfoot limited to breakdown of skin Code(s): L97.409 - Non-pressure chronic ulcer of unspecified heel and midfoot with unspecified severity Status: Acute Assessment and Plan: Wound Care has been consulted and appreciate evaluation recommendation (9) Decubitus ulcer: Qualifiers: Pressure injury location: heel Pressure i
--- NOTE | 2019-12-12 08:50 | PM.PNNEP ---
Progress Note: A&P Assessment and Plan (1) ESRD (end stage renal disease) on dialysis: Code(s): N18.6 - End stage renal disease; Z99.2 - Dependence on renal dialysis Status: Acute Assessment and Plan: Aurelia has end-stage renal disease. This is due to former hypertension, diabetes, and chronic pre renal azotemia from her severe pulmonary hypertension. Dialysis today (2) Sepsis: Qualifiers: Sepsis type: sepsis due to unspecified organism Sepsis acute organ dysfunction status: without acute organ dysfunction Qualified Code(s): A41.9 - Sepsis, unspecified organism Code(s): A41.9 - Sepsis, unspecified organism Status: Acute Assessment and Plan: The patient is acting septic. She is still requiring norepinephrine. Every time they try to stop at the blood pressure drops. started midodrine. (3) Decubitus ulcer: Qualifiers: Pressure injury location: heel Pressure injury stage: pressure injury of deep tissue Laterality: unspecified laterality Qualified Code(s): L89.606 - Pressure-induced deep tissue damage of unspecified heel Code(s): L89.90 - Pressure ulcer of unspecified site, unspecified stage Status: Acute Assessment and Plan: Local wound Care for this. (4) Atrial fibrillation: Qualifiers: Atrial fibrillation type: unspecified Qualified Code(s): I48.91 - Unspecified atrial fibrillation Code(s): I48.91 - Unspecified atrial fibrillation Status: Acute Assessment and Plan: Her heart rate is well controlled in the 70s. She is on amiodarone and Eliquis. (5) Acute on chronic respiratory failure with hypoxia and hypercapnia: Code(s): J96.21 - Acute and chronic respiratory failure with hypoxia; J96.22 - Acute and chronic respiratory failure with hypercapnia Status: Acute Assessment and Plan: The patient has a respiratory and metabolic acidosis. Bhob barely high. CO2 is much better. Anion gap is down to 5. Await immunofixation. (6) Chronic anemia: Code(s): D64.9 - Anemia, unspecified Status: Acute Assessment and Plan: Hemoglobin is low due to renal failure. (7) Type 2 diabetes mellitus: Qualifiers: Diabetes mellitus exterminator helper termite insulin use: with senior care use Diabetes mellitus complication status: with hyperglycemia Qualified Code(s): E11.65 - Type 2 diabetes mellitus with hyperglycemia; Z79.4 - FPC (current) use of insulin Code(s): E11.9 - Type 2 diabetes mellitus without complications Status: Acute Assessment and Plan: On Accu-Cheks and sliding-scale insulin. Subjective Date/time seen: 12/12/19 08:50 Interval history: The patient is alert. She knows she is in [facility] and that it is 2020. Still confused. Review of Systems Cardiovascular: Cardiovascular: Reports no additional cardiovascular complaints Respiratory: Respiratory: Reports no additional respiratory complaints Gastrointestinal: Gastrointestinal: Reports no additional gastrointestinal complaints Genitourinary: Genitourinary: Reports no additional female genitourinary complaints Exam Narrative: Exam Narrative: WDWN in NAD skin no rash head ncat lungs clear cor reg no rub abd BS+ nontender and soft ext no edema. Objective Data Vital Signs Vital Signs: Vital Signs - 24 hr 12/11/19 09:36 12/11/19 10:00 12/11/19 12:00 Temperature 36.6 C Pulse Rate 57 L 76 Respiratory Rate 21 H 22 H Blood Pressure 84/47 L 102/56 L Pulse Oximetry 98 100 97 12/11/19 14:00 12/11/19 16:00 12/11/19 18:00 Temperature 36.3 C L Pulse Rate 69 73 77 Respiratory Rate 25 H 23 H 20 Blood Pressure 100/47 L 101/55 L 99/49 L Pulse Oximetry 100 99 12/11/19 20:00 12/11/19 21:00 12/11/19 22:00 Temperature 37.1 C Pulse Rate 74 68 70 Respiratory Rate 25 H 22 H 23 H Blood Pressure 95/55 L 91/47 L 99/71 L Pulse Oximetry 100 99 99
[2019-12-12] MEDS: ACIDOPHILUS/BULGARICUS CHEWABLE TABLET 1 TABLET PO ×4 (10:12→20:38)
[2019-12-12] MEDS: AMIODARONE HCL 200 MG TABLET PO (10:12)
[2019-12-12] MEDS: FIDAXOMICIN 200 MG TABLET PO ×2 (10:13→20:37)
[2019-12-12] MEDS: APIXABAN 5 MG TABLET PO ×2 (10:13→16:59)
[2019-12-12] MEDS: TOLNAFTATE 1% POWDER 45 GM BTL 1 APPLIC TOPICAL ×2 (10:13→20:36)
[2019-12-12] MEDS: CHOLESTYRAMINE LIGHT 4 GM POWD.PACK PO ×2 (10:13→17:53)
[2019-12-12] MEDS: MIDODRINE HCL 10 MG TABLET PO ×3 (10:14→17:01)
[2019-12-12] MEDS: PANTOPRAZOLE SODIUM IV 40 MG VIAL IV PUSH (10:15)
[2019-12-12] MEDS: AZTREONAM 1 GM in DEXTROSE 5% IN WATER 50 ML IVPB (10:17)
[2019-12-12 10:45] LABS: Glucose Point of Care 82 (65-105)
--- NOTE | 2019-12-12 11:03 | PCDIET ---
ICU Rounding Note: Patient with minimal intake on diabetic, renal dialysis diet. Refusing Nepro BID. Discussed possibility of appetite stimulant with Dr. Rod. If oral intake does not increase, will ultimately require enteral feedings to achieve adequate nutrition. Last recorded weight is 93.3. Recommend daily weight. Bowel Motility: Mucoid stools reported; checking for c. diff. Labs Reviewed: Hgb (10.8), Hct (35.5), BUN (20), Cr (4.9), Na (133), Alb (2.3), Jesus Ca (8.96) Meds Noted: Protonix, Albuterol, Questran, Midodrine, Levophed, Aztreonam, Epogen, Novolog, Lactinex, NS at 50mL/hr Additional Notes: Patient receiving dialysis today; no plan for fluid removal. Bilateral heel ulcers present. Right heel necrotic, per nursing. Following daily in ICU rounds. Assessing/reassessing every 3 days.
[2019-12-12] MEDS: EPOETIN ALFA 10,000 UNITS/ML VIAL 10000 UNITS IV PUSH (12:00)
--- NOTE | 2019-12-12 12:16 | WPDINFPN2 ---
Progress Note: A&P Assessment and Plan (1) Hypotension: Qualifiers: Hypotension type: unspecified hypotension type Qualified Code(s): I95.9 - Hypotension, unspecified Code(s): I95.9 - Hypotension, unspecified Status: Acute Assessment and Plan: 1. Hypotension with tissue hypoperfusion, infectious vs other, improved findings. UTI with Citrobacter is possible, but more likely is relapsed C diff infection 2. CRF 3. Recent UTI and C diff infection 4. Multiple allergies REC Mendez in place, minimal U.O. at baseline. Aztreo # 3 (antibiotic #4), stop and place on ciprofloxacin x 5 days, adjust for her chronic renal failure. fidaxomicin # 3 / 10 days. Subjective Date/time seen: 12/12/19 12:16 Interval history: no true diarrhea, BMs loose. + nausea, vomited at least once. Some LLQ pain Exam Narrative: Exam Narrative: afebrile, no pressors, on HD Const: General: no acute distress HENMT: Mouth: Yes moist mucous membranes and No Abnormal oral and palatal mucosa present Eyes: General: appearance normal, both eyes and all related structures Resp: Effort & Inspection: normal respiratory effort Auscultation: clear to auscultation bilaterally Cardio: Rate: regular rate Rhythm: regular rhythm Heart sounds: no murmurs GI: Inspection: non-distended GI Palp: Yes Soft to palpation, No Tenderness to palpation present (GI) and No Guarding due to palpation present (GI) Auscultation: normal bowel sounds Objective Data Vital Signs Vital Signs: Vital Signs - 24 hr 12/11/19 14:00 12/11/19 16:00 12/11/19 18:00 Temperature 36.3 C L Pulse Rate 69 73 77 Respiratory Rate 25 H 23 H 20 Blood Pressure 100/47 L 101/55 L 99/49 L Pulse Oximetry 100 99 12/11/19 20:00 12/11/19 21:00 12/11/19 22:00 Temperature 37.1 C Pulse Rate 74 68 70 Respiratory Rate 25 H 22 H 23 H Blood Pressure 95/55 L 91/47 L 99/71 L Pulse Oximetry 100 99 99 12/11/19 23:52 12/12/19 00:00 12/12/19 02:00 Temperature 36.9 C Pulse Rate 7 L 70 74 Respiratory Rate 24 H 25 H 25 H Blood Pressure 98/51 L 106/72 Pulse Oximetry 100 99 100 12/12/19 03:45 12/12/19 04:00 12/12/19 06:00 Temperature 36.9 C Pulse Rate 70 72 77 Respiratory Rate 21 H 22 H 24 H Blood Pressure 119/54 L 97/50 L Pulse Oximetry 100 100 99 12/12/19 08:00 12/12/19 08:45 12/12/19 09:11 Temperature 36.7 C 36.4 C Pulse Rate 73 71 79 Respiratory Rate 26 H 20 Blood Pressure 109/64 117/57 L 129/60 Pulse Oximetry 98 99 12/12/19 09:15 12/12/19 09:30 12/12/19 09:45 Temperature Pulse Rate 71 74 74 Respiratory Rate Blood Pressure 126/101 H 127/64 115/63 Pulse Oximetry 12/12/19 10:00 12/12/19 10:12 12/12/19 10:15 Temperature Pulse Rate 74 75 75 Respiratory Rate 24 H Blood Pressure 116/64 108/53 L Pulse Oximetry 99 12/12/19 10:30 12/12/19 10:37 12/12/19 10:45 Temperature Pulse Rate 75 83 Respiratory Rate Blood Pressure 121/69 143/82 H Pulse Oximetry 98 12/12/19 11:00 12/12/19 11:15 12/12/19 11:30 Temperature Pulse Rate 74 75 75 Respiratory Rate Blood Pressure 136/60 130/66 134/74 Pulse Oximetry 12/12/19 11:45 12/12/19 12:00 12/12/19 12:15 Temperature Pulse Rate 74 75 75 Respiratory Rate Blood Pressure 125/72 134/76 127/69 Pulse Oximetry Intake/Output Intake/Output: Intake & Output 12/09/19 12/10/19 12/11/19 12/12/19 23:59 23:59 23:59 23:59 Intake Total 3550 1660 1622 813 Output Total 10 10 0 Balance 3550 1650 1612 813 Meds/Results Medications: Active Medications Generic Name Dose Route Start Last Admin Trade Name Freq PRN Reason Stop Dose Admin Acetaminophen 650 mg 12/09/19 20:42 Tylenol Tablet PO Q4H PRN Mild Pain (1-5) Or Fever Albuterol 5 mg 12/09/19 20:42 Albuterol Sulf Neb 2.5mg/0.5ml INHALATION Q6HRT PRN Shortness Of Breath Or Wheezing Alprazolam 0.5 mg 12/09/19 20:42 Xanax PO HS PRN Anxiety
[2019-12-12] MEDS: SALINE 0.65% NAS SOLN 44 ML BTL 1 SPRAY NASAL ×3 (13:18→23:54)
[2019-12-12] MEDS: SODIUM CHLORIDE 0.9% IV 1,000 ML 50 ML IV CONT (13:20)
[2019-12-12 13:25] LABS: Glucose Point of Care 74 (65-105)
--- NOTE | 2019-12-12 16:14 | PM.IMPN ---
Progress Note: A&P Assessment and Plan (1) Hypotension: Qualifiers: Hypotension type: unspecified hypotension type Qualified Code(s): I95.9 - Hypotension, unspecified Code(s): I95.9 - Hypotension, unspecified Status: Acute Assessment and Plan: Likely due to septic shock with likely C diff colitis given CT findings. The patient received empiric cefepime and vanc in the ER due to pyuria. However I suspect pyuria may be due to the patient's chronic low urine output and be more of a asymptomatic issue. Will hold off on giving any further antibiotics for UTI and await urine culture. Will start the patient on Dificid. Infectious disease with has been consult on the patient has they had previously recommended a week course of vancomycin which the patient completed November 17. Will await further recommendations given her recurrence after such a long taper. The patient's Levophed was initially at 15 mcg on arrival to the ICU but has been weaned down to 8. 12/12/19 16:14 With history of end-stage disease on hemodialysis yesterday during her dialysis patient was hypotensive and was sent to emergency department for further evaluation but emergency depart patient blood pressure was low and patient was started on Levophed and transferred to ICU, patient had been treated recently for C diff with oral vancomycin and had a complaint of nausea or vomiting time 2 mostly stomach content, and diarrhea most likely patient has C diff, patient is seen by Dr. quarles started the patient on Aztreo # 1 (antibiotic #2) and fidaxomicin # 1. Currently patient in ICU receiving dialysis, today patient is more cooperative and pleasant, denies any complaint of chest pain shortness of breath palpitation fever or chills patient is negative for C diff, patient blood pressure still running low patient is on norepinephrine patient is seen by child custody evaluator, industrial relations manager and Dr. quarles appreciate, today patient is seen by Dr. quarles and suspect UTI however. Aztreonam and start the patient on Cipro box, will continue to treat was C diff with fidaxomicin # 3/10, patient is minimal urine production is patient on end-stage renal disease on hemodialysis, patient is off pressor and was started on midodrine her blood pressure is stable will continue to monitor patient in ICU may transfer the patient out of ICU to IMU (2) ESRD (end stage renal disease) on dialysis: Code(s): N18.6 - End stage renal disease; Z99.2 - Dependence on renal dialysis Status: Acute Assessment and Plan: Will consult nephrology for dialysis management. Subjective Date/time seen: 12/12/19 16:14 With history of end-stage disease on hemodialysis yesterday during her dialysis patient was hypotensive and was sent to emergency department for further evaluation but emergency depart patient blood pressure was low and patient was started on Levophed and transferred to ICU, patient had been treated recently for C diff with oral vancomycin and had a complaint of nausea or vomiting time 2 mostly stomach content, and diarrhea most likely patient has C diff, patient is seen by Dr. quarles started the patient on Aztreo # 1 (antibiotic #2) and fidaxomicin # 1. Currently patient in ICU receiving dialysis, today patient is more cooperative and pleasant, denies any complaint of chest pain shortness of breath palpitation fever or chills patient is negative for C diff, patient blood pressure still running low patient is on norepinephrine patient is seen by child custody evaluator, industrial relations manager and Dr. quarles appreciate, today patient is seen by Dr. quarles and suspect UTI however. Aztreonam and start the patient on Cipro box, will continue to treat was C diff with fidaxomicin # 3/10, patient is minimal urine production is patient on end-stage renal disease on hemodialysis, patient is off pressor and was started on midodrine her blood pressure is stable will continue to monitor patient in ICU may transfer the pat
[2019-12-12] MEDS: CIPROFLOXACIN 500 MG TAB PO (17:00)
[2019-12-12 17:16] LABS: Glucose Point of Care 90 (65-105)
[2019-12-12] MEDS: ALPRAZOLAM 0.5 MG TABLET PO (19:43)
[2019-12-12] MEDS: SIMVASTATIN 20 MG TABLET 40 MG PO (20:36)
[2019-12-12 22:01] LABS: Glucose Point of Care 79 (65-105)
[2019-12-13] VITALS (28 sets, daily range): BP systolic 102–170; BP diastolic 46–84; PULSE 58–92; RESP 16–24; TEMP 36.1–37; O2SAT 96–100
[2019-12-13] MEDS: SALINE 0.65% NAS SOLN 44 ML BTL 1 SPRAY NASAL ×3 (05:52→18:18)
[2019-12-13 06:03] LABS: Hematocrit 34.2 % (37.0-47.0); Hemoglobin 10.3 g/dL (12.0-15.0); Mean Corpuscular HGB Conc 30.1 g/dl (32-36); Mean Corpuscular Hemoglobin 30.5 pg (26-34); Mean Corpuscular Volume 101.2 fl (80-100); Mean Platelet Volume 9.4 fl (7.4-10.4); Platelet Count Result 148 k/mm3 (150-375); Red Blood Count 3.38 M/mm3 (4.2-5.4); Red Cell Distribution Width 15.5 % (11.5-14.5); White Blood Count 6.6 K/mm3 (4.5-10.0)
[2019-12-13 07:09] LABS: Lactic Acid 0.7 mmol/L (0.7-2.1)
[2019-12-13 07:14] LABS: Albumin Level 2.1 g/dL (3.5-5.1); Blood Urea Nitrogen 10 mg/dL (7-17); Calcium 7.4 mg/dL (8.4-10.2); Carbon Dioxide 31 mmol/L (22-30); Chloride 99 mmol/L (98-107); Estimated CRCL calculation 20 ml/min; Estimated Glomerular Filt Rate 17; Glucose 77 mg/dL (65-105); Magnesium 1.7 mg/dL (1.6-2.3); Phosphorus 3.1 mg/dL (2.5-4.5); Potassium 3.2 mmol/L (3.4-5.0); Sodium 132 mmol/L (137-145)
[2019-12-13 07:25] LABS: Glucose Point of Care 77 (65-105)
[2019-12-13] MEDS: ONDANSETRON INJ 4 MG/2 ML VIAL IV PUSH (07:58)
[2019-12-13] MEDS: ACIDOPHILUS/BULGARICUS CHEWABLE TABLET 1 TABLET PO ×4 (08:01→21:12)
[2019-12-13] MEDS: AMIODARONE HCL 200 MG TABLET PO (08:02)
[2019-12-13] MEDS: FIDAXOMICIN 200 MG TABLET PO ×2 (08:03→21:12)
[2019-12-13] MEDS: APIXABAN 5 MG TABLET PO ×2 (08:03→18:17)
[2019-12-13] MEDS: PANTOPRAZOLE SODIUM IV 40 MG VIAL IV PUSH (08:04)
[2019-12-13] MEDS: TOLNAFTATE 1% POWDER 45 GM BTL 1 APPLIC TOPICAL ×2 (08:04→21:12)
[2019-12-13] MEDS: MIDODRINE HCL 10 MG TABLET PO ×2 (08:04→18:17)
[2019-12-13] MEDS: SODIUM CHLORIDE 0.9% IV 1,000 ML 333 ML IV CONT (09:00)
--- NOTE | 2019-12-13 09:58 | PC.NURSE ---
Patient currently in dialysis, left floor at 0900. Patient transferred via bed. Tolerated well. Belongings taken to room 342. Report to Delaney CHAPMAN on 3rd medical.
--- NOTE | 2019-12-13 10:54 | PCDIET ---
Nutrition Follow-Up Complete: Nutrition Diagnosis: Involuntary weight loss likely related to multiple medical issues as evidenced by reported and documented significant weight loss. Nutrition Goal: Patient to consume 50% of meals/supplements. Goal not met. Patient continues to eat around 10% of meals. Megace initiated this date, however, so may expect to see some improvement over the next few days. If intakes remain poor on next review, will likely consider supplemental enteral feedings. Last recorded weight is 97.8 kg which is increased from last review. Bowel Motility: BM x 1 today. Labs Reviewed: BUN (20), Cr (4.9), Na (133), Alb (2.3), Jesus Ca (8.96) Meds Noted: Albutein, Cipro, Lactinex, Midodrine, Albuterol, Dificid, Megace, Protonix, Questran, Novolog, NS at 50mL/hr, KCl Additional Notes: Patient with bilateral heel ulcers. Will continue to monitor with same goal. Nutrition Monitoring and Evaluation: Follow up every 3 days.
--- NOTE | 2019-12-13 11:19 | PM.PNNEP ---
Progress Note: A&P Assessment and Plan (1) ESRD (end stage renal disease) on dialysis: Code(s): N18.6 - End stage renal disease; Z99.2 - Dependence on renal dialysis Status: Acute Assessment and Plan: Aurelia has end-stage renal disease. This is due to former hypertension, diabetes, and chronic pre renal azotemia from her severe pulmonary hypertension. Dialysis currently. (2) Sepsis: Qualifiers: Sepsis type: sepsis due to unspecified organism Sepsis acute organ dysfunction status: without acute organ dysfunction Qualified Code(s): A41.9 - Sepsis, unspecified organism Code(s): A41.9 - Sepsis, unspecified organism Status: Acute Assessment and Plan: Improved. She had hypotension but this is better with midodrine. (3) Decubitus ulcer: Qualifiers: Pressure injury location: heel Pressure injury stage: pressure injury of deep tissue Laterality: unspecified laterality Qualified Code(s): L89.606 - Pressure-induced deep tissue damage of unspecified heel Code(s): L89.90 - Pressure ulcer of unspecified site, unspecified stage Status: Acute Assessment and Plan: Local wound Care for this. (4) Atrial fibrillation: Qualifiers: Atrial fibrillation type: unspecified Qualified Code(s): I48.91 - Unspecified atrial fibrillation Code(s): I48.91 - Unspecified atrial fibrillation Status: Acute Assessment and Plan: Her heart rate is well controlled in the 70s. She is on amiodarone and Eliquis. (5) Acute on chronic respiratory failure with hypoxia and hypercapnia: Code(s): J96.21 - Acute and chronic respiratory failure with hypoxia; J96.22 - Acute and chronic respiratory failure with hypercapnia Status: Acute Assessment and Plan: The patient has a respiratory and metabolic acidosis. Bhob barely high. CO2 is much better. Anion gap is down to 2. Await immunofixation. (6) Chronic anemia: Code(s): D64.9 - Anemia, unspecified Status: Acute Assessment and Plan: Hemoglobin is low due to renal failure. Getting EPO today. (7) Type 2 diabetes mellitus: Qualifiers: Diabetes mellitus joint terminal attack controller insulin use: with alf use Diabetes mellitus complication status: with hyperglycemia Qualified Code(s): E11.65 - Type 2 diabetes mellitus with hyperglycemia; Z79.4 - half-way (current) use of insulin Code(s): E11.9 - Type 2 diabetes mellitus without complications Status: Acute Assessment and Plan: On Accu-Cheks and sliding-scale insulin. Subjective Date/time seen: 12/13/19 11:19 Interval history: The patient is alert. Seemingly a little less confused. She is on dialysis and tolerating it well. She was seen at 10:30 a.m. No fluid removal today because of her low blood pressure. Review of Systems Cardiovascular: Cardiovascular: Reports no additional cardiovascular complaints Respiratory: Respiratory: Reports no additional respiratory complaints Gastrointestinal: Gastrointestinal: Reports no additional gastrointestinal complaints Genitourinary: Genitourinary: Reports no additional female genitourinary complaints Exam Narrative: Exam Narrative: WDWN in NAD skin no rash head ncat lungs clear bilaterally cor reg no rub abd BS+ nontender and soft ext no edema. Objective Data Vital Signs Vital Signs: Vital Signs - 24 hr 12/12/19 11:30 12/12/19 11:45 12/12/19 12:00 Temperature 36.2 C L Pulse Rate 75 74 74 Respiratory Rate 18 Blood Pressure 134/74 125/72 134/76 Pulse Oximetry 100 12/12/19 12:15 12/12/19 12:30 12/12/19 12:42 Temperature Pulse Rate 75 75 75 Respiratory Rate Blood Pressure 127/69 139/72 150/74 H Pulse Oximetry 12/12/19 12:50 12/12/19 14:00 12/12/19 16:00 Temperature 36.6 C 36.3 C L Pulse Rate 76 71 71 Respiratory Rate 21 H 22 H 22 H Blood Pressure 105/88 110/73 142/67 H Pulse Oximetry 99 1
--- NOTE | 2019-12-13 11:30 | WPDINFPN2 ---
Progress Note: A&P Assessment and Plan (1) Hypotension: Qualifiers: Hypotension type: unspecified hypotension type Qualified Code(s): I95.9 - Hypotension, unspecified Code(s): I95.9 - Hypotension, unspecified Status: Acute Assessment and Plan: 1. Hypotension with tissue hypoperfusion, infectious vs other, improved findings. UTI with Citrobacter is possible, but more likely is relapsed C diff infection 2. CRF 3. Recent UTI and C diff infection 4. Multiple allergies REC minimal U.O. at baseline. off Aztreo (antibiotic #5), continue ciprofloxacin #2 / 5 days, no new adjustments for CRF. fidaxomicin # 4 / 10 days. Ok discharge planning. Subjective Date/time seen: 12/13/19 11:30 Interval history: on HD. 4 bms past 24 hours, soft but not fully formed per patient Exam Narrative: Exam Narrative: afebrile Const: General: no acute distress Eyes: General: appearance normal, both eyes and all related structures Resp: Effort & Inspection: normal respiratory effort Auscultation: clear to auscultation bilaterally Cardio: Rate: regular rate Rhythm: regular rhythm Heart sounds: no murmurs GI: Inspection: non-distended GI Palp: Yes Soft to palpation, No Tenderness to palpation present (GI) and No Guarding due to palpation present (GI) Skin: General skin exam: normal color and no rashes or lesions noted Other: left IJ cvc Objective Data Vital Signs Vital Signs: Vital Signs - 24 hr 12/12/19 11:45 12/12/19 12:00 12/12/19 12:15 Temperature 36.2 C L Pulse Rate 74 74 75 Respiratory Rate 18 Blood Pressure 125/72 134/76 127/69 Pulse Oximetry 100 12/12/19 12:30 12/12/19 12:42 12/12/19 12:50 Temperature 36.6 C Pulse Rate 75 75 76 Respiratory Rate 21 H Blood Pressure 139/72 150/74 H 105/88 Pulse Oximetry 99 12/12/19 14:00 12/12/19 16:00 12/12/19 18:00 Temperature 36.3 C L Pulse Rate 71 71 73 Respiratory Rate 22 H 22 H 24 H Blood Pressure 110/73 142/67 H 98/76 L Pulse Oximetry 100 99 95 12/12/19 20:00 12/12/19 22:00 12/13/19 00:00 Temperature 36.6 C 36.6 C Pulse Rate 83 110 H 75 Respiratory Rate 18 18 24 H Blood Pressure 116/77 91/55 L 131/61 Pulse Oximetry 100 96 98 12/13/19 02:00 12/13/19 04:00 12/13/19 06:00 Temperature 36.6 C Pulse Rate 59 L 61 58 L Respiratory Rate 17 16 18 Blood Pressure 102/48 L 106/46 L 162/70 H Pulse Oximetry 96 99 100 12/13/19 08:00 12/13/19 08:02 12/13/19 09:00 Temperature 36.6 C Pulse Rate 74 75 71 Respiratory Rate 24 H Blood Pressure 154/68 H 159/78 H Pulse Oximetry 97 12/13/19 09:15 12/13/19 09:30 12/13/19 09:45 Temperature Pulse Rate 70 73 70 Respiratory Rate Blood Pressure 170/65 H 155/84 H 154/72 H Pulse Oximetry 12/13/19 10:00 12/13/19 10:15 12/13/19 10:30 Temperature Pulse Rate 70 67 68 Respiratory Rate Blood Pressure 165/70 H 156/54 H 154/71 H Pulse Oximetry 12/13/19 10:45 12/13/19 11:00 12/13/19 11:15 Temperature Pulse Rate 70 72 77 Respiratory Rate Blood Pressure 168/65 H 169/65 H 151/82 H Pulse Oximetry Intake/Output Intake/Output: Intake & Output 12/10/19 12/11/19 12/12/19 12/13/19 23:59 23:59 23:59 23:59 Intake Total 1660 1622 1443 1320 Output Total 10 10 0 0 Balance 1650 1612 1443 1320 Meds/Results Medications: Active Medications Generic Name Dose Route Start Last Admin Trade Name Freq PRN Reason Stop Dose Admin Acetaminophen 650 mg 12/09/19 20:42 Tylenol Tablet PO Q4H PRN Mild Pain (1-5) Or Fever Albuterol 5 mg 12/09/19 20:42 Albuterol Sulf Neb 2.5mg/0.5ml INHALATION Q6HRT PRN Shortness Of Breath Or Wheezing Alprazolam 0.5 mg 12/09/19 20:42 12/12/19 19:43 Xanax PO 0.5 mg HS PRN Administration Anxiety Amiodarone HCl 200 mg 12/10/19 09:00 12/13/19 08:02 Pacerone PO 200 mg DAILY DEJON Administration Apixaban 5 mg 12/10/19 09:00 12/13/19 08:03 Eliquis PO 5
--- NOTE | 2019-12-13 11:58 | WPDINTPN ---
Progress Note: A&P Assessment and Plan (1) Septic shock: Code(s): A41.9 - Sepsis, unspecified organism; R65.21 - Severe sepsis with septic shock Status: Acute Assessment and Plan: RESOLVED: Patient presented with hypotension, confusion from the dialysis center. Patient did not start her dialysis as she was hypotensive with systolics in the 70s -OFF LEVOPHED -blood cultures negative x2, - urine cultures growing Citrobacter freundii -PATIENT PLACED ON CIPROFLOXACIN, SOON AND WAS DISCONTINUED -patient with green colitis and recent C diff colitis, continue fidaxomicin, lactobacillus, cholestyramine -continue midodrine (2) Atrial fibrillation: Qualifiers: Atrial fibrillation type: unspecified Qualified Code(s): I48.91 - Unspecified atrial fibrillation Code(s): I48.91 - Unspecified atrial fibrillation Status: Acute Assessment and Plan: on Eiquis, will continue for now currently in sinus with 1st degress block (3) Metabolic acidosis: Code(s): E87.2 - Acidosis Status: Acute Assessment and Plan: Resolved: Patient had metabolic acidosis on admission likely related to septic shock, hypovolemia, decreased and open perfusion - according to Dr. Gonzalez her bicarb is normal in 30s. -patient dialyzed on 12/10/2019 (4) ESRD (end stage renal disease) on dialysis: Code(s): N18.6 - End stage renal disease; Z99.2 - Dependence on renal dialysis Status: Acute Assessment and Plan: ESRD on HD -HD per nephrology (5) UTI (urinary tract infection): Qualifiers: Encounter type: initial encounter Indwelling urinary catheter type: unspecified Urinary tract infection type: catheter-associated UTI Qualified Code(s): T83.511A - Infection and inflammatory reaction due to indwelling urethral catheter, initial encounter; N39.0 - Urinary tract infection, site not specified Code(s): N39.0 - Urinary tract infection, site not specified Status: Acute Assessment and Plan: UA showing UTI, received cefepime and vanc in ED - urine cx growing Citrobacter freundii - Chronic sears - hx of citrobacter, Klebsiella and E.Coli UTI in September 2019 -appreciate infectious disease following the patient, aztreonam was discontinued and patient started on ciprofloxacin (6) DVT (deep venous thrombosis): Qualifiers: DVT location: lower extremity Affected thrombotic vein of extremity: calf muscle vein Chronicity: acute Laterality: left Qualified Code(s): I82.462 - Acute embolism and thrombosis of left calf muscular vein Code(s): I82.409 - Acute embolism and thrombosis of unspecified deep veins of unspecified lower extremity Status: Acute Assessment and Plan: Venous Dopplers on 10/12/2019: Positive for interval development of left calf DVT - Patient on Eliquis and will continue (7) Diastolic CHF: Qualifiers: Heart failure chronicity: chronic Qualified Code(s): I50.32 - Chronic diastolic (congestive) heart failure Code(s): I50.30 - Unspecified diastolic (congestive) heart failure Status: Acute Assessment and Plan: Patient has a history of diastolic dysfunction, no echocardiogram in the system -echocardiogram 12/11/2019: Normal LV chamber dimension, EF 65-70%. Grade 1 diastolic dysfunction. [id number] tricuspid regurg coma RVSP 36 mmHg (8) Heel ulcer: Qualifiers: Laterality: right Non-pressure ulcer stage: limited to breakdown of skin Qualified Code(s): L97.411 - Non-pressure chronic ulcer of right heel and midfoot limited to breakdown of skin Code(s): L97.409 - Non-pressure chronic ulcer of unspecified heel and midfoot with unspecified severity Status: Acute Assessment and Plan: Wound Care has been consulted and appreciate evaluation recommendation (9) Decubitus ulcer: Qualifiers: Pressure injury location: heel Pressure injury stage: pressure in
[2019-12-13] MEDS: EPOETIN ALFA 10,000 UNITS/ML VIAL 10000 UNITS IV PUSH (12:00)
[2019-12-13] MEDS: HEPARIN SODIUM 1,000 UNITS/ML VIAL 6000 UNITS (12:27)
[2019-12-13] MEDS: HEPARIN SODIUM 1,000 UNITS/ML VIAL 3000 UNITS (12:28)
[2019-12-13] MEDS: SODIUM CHLORIDE 0.9% IV 1,000 ML 333 ML (12:29)
[2019-12-13] MEDS: MEGESTROL ACETATE (*CHEMO) ORAL SUSP 40 MG/ML SYR 800 MG PO (13:25)
[2019-12-13] MEDS: POTASSIUM CHLORIDE 20 MEQ TABLET PO (13:27)
[2019-12-13 14:00] LABS: Glucose Point of Care 72 (65-105)
--- NOTE | 2019-12-13 15:20 | PM.IMPN ---
Progress Note: A&P Assessment and Plan (1) Hypotension: Qualifiers: Hypotension type: unspecified hypotension type Qualified Code(s): I95.9 - Hypotension, unspecified Code(s): I95.9 - Hypotension, unspecified Status: Acute Assessment and Plan: Likely due to septic shock with likely C diff colitis given CT findings. The patient received empiric cefepime and vanc in the ER due to pyuria. However I suspect pyuria may be due to the patient's chronic low urine output and be more of a asymptomatic issue. Will hold off on giving any further antibiotics for UTI and await urine culture. Will start the patient on Dificid. Infectious disease with has been consult on the patient has they had previously recommended a week course of vancomycin which the patient completed November 17. Will await further recommendations given her recurrence after such a long taper. The patient's Levophed was initially at 15 mcg on arrival to the ICU but has been weaned down to 8. 12/13/19 15:20 With history of end-stage disease on hemodialysis yesterday during her dialysis patient was hypotensive and was sent to emergency department for further evaluation but emergency depart patient blood pressure was low and patient was started on Levophed and transferred to ICU, patient had been treated recently for C diff with oral vancomycin and had a complaint of nausea or vomiting time 2 mostly stomach content, and diarrhea most likely patient has C diff, patient is seen by Dr. quarles started the patient on Aztreo # 1 (antibiotic #2) and fidaxomicin # 1. Currently patient in ICU receiving dialysis, today patient is more cooperative and pleasant, denies any complaint of chest pain shortness of breath palpitation fever or chills patient is negative for C diff, patient blood pressure still running low patient is on norepinephrine patient is seen by blocking machine operator second, personnel worker and Dr. quarles appreciate, today patient is seen by Dr. quarles and suspect UTI however. Aztreonam and start the patient on Cipro , will continue to treat was C diff with fidaxomicin # 4/10, patient is minimal urine production is patient on end-stage renal disease on hemodialysis, patient is off pressor and was started on midodrine, today patient blood pressure is increasing we are holding midodrine, patient her dialysis today, patient is out of ICU on medical floor will continue monitor patient and possibly discharge home tomorrow (2) ESRD (end stage renal disease) on dialysis: Code(s): N18.6 - End stage renal disease; Z99.2 - Dependence on renal dialysis Status: Acute Assessment and Plan: Will consult nephrology for dialysis management. Subjective Date/time seen: 12/13/19 15:20 With history of end-stage disease on hemodialysis yesterday during her dialysis patient was hypotensive and was sent to emergency department for further evaluation but emergency depart patient blood pressure was low and patient was started on Levophed and transferred to ICU, patient had been treated recently for C diff with oral vancomycin and had a complaint of nausea or vomiting time 2 mostly stomach content, and diarrhea most likely patient has C diff, patient is seen by Dr. quarles started the patient on Aztreo # 1 (antibiotic #2) and fidaxomicin # 1. Currently patient in ICU receiving dialysis, today patient is more cooperative and pleasant, denies any complaint of chest pain shortness of breath palpitation fever or chills patient is negative for C diff, patient blood pressure still running low patient is on norepinephrine patient is seen by blocking machine operator second, personnel worker and Dr. quarles appreciate, today patient is seen by Dr. quarles and suspect UTI however. Aztreonam and start the patient on Cipro , will continue to treat was C diff with fidaxomicin # 4/10, patient is minimal urine production is patient on end-stage renal disease on hemodialysis, patient is off pressor and was started on midodrine, toda
[2019-12-13] MEDS: CHOLESTYRAMINE LIGHT 4 GM POWD.PACK PO ×2 (15:29→19:17)
[2019-12-13 16:45] LABS: Glucose Point of Care 88 (65-105)
[2019-12-13] MEDS: CIPROFLOXACIN 500 MG TAB PO (18:17)
[2019-12-13] MEDS: SIMVASTATIN 20 MG TABLET 40 MG PO (21:12)
[2019-12-13] MEDS: ALPRAZOLAM 0.5 MG TABLET PO (21:18)
[2019-12-13 23:38] LABS: Glucose Point of Care 71 (65-105)
[2019-12-14] VITALS (15 sets, daily range): BP systolic 127–153; BP diastolic 50–79; PULSE 62–74; RESP 14–22; TEMP 36.1–36.2; O2SAT 97–100
[2019-12-14 03:44] LABS: Kappa\\Lambda Light Chains 1.55 (0.26-1.65); Lambda Light Chain 87.1 mg/L (5.7-26.3)
[2019-12-14 05:19] LABS: Hematocrit 35.8 % (37.0-47.0); Hemoglobin 10.6 g/dL (12.0-15.0); Mean Corpuscular HGB Conc 29.6 g/dl (32-36); Mean Corpuscular Hemoglobin 30.8 pg (26-34); Mean Corpuscular Volume 104.1 fl (80-100); Platelet Count Result 165 k/mm3 (150-375); Red Blood Count 3.44 M/mm3 (4.2-5.4); Red Cell Distribution Width 15.6 % (11.5-14.5); White Blood Count 6.2 K/mm3 (4.5-10.0)
[2019-12-14] MEDS: ONDANSETRON INJ 4 MG/2 ML VIAL IV PUSH (05:19)
[2019-12-14] MEDS: SALINE 0.65% NAS SOLN 44 ML BTL 1 SPRAY NASAL ×3 (05:20→17:33)
[2019-12-14 05:29] LABS: Blood Urea Nitrogen 6 mg/dL (7-17); Carbon Dioxide 35 mmol/L (22-30); Chloride 99 mmol/L (98-107); Estimated CRCL calculation 23 ml/min; Estimated Glomerular Filt Rate 20; Glucose 86 mg/dL (65-105); Magnesium 1.7 mg/dL (1.6-2.3); Phosphorus 2.4 mg/dL (2.5-4.5); Potassium 3.4 mmol/L (3.4-5.0); Sodium 133 mmol/L (137-145)
[2019-12-14 07:47] LABS: Glucose Point of Care 73 (65-105)
[2019-12-14] MEDS: POTASSIUM CHLORIDE 20 MEQ TABLET 40 MEQ PO (08:32)
[2019-12-14] MEDS: ACIDOPHILUS/BULGARICUS CHEWABLE TABLET 1 TABLET PO ×4 (08:33→20:31)
[2019-12-14] MEDS: FIDAXOMICIN 200 MG TABLET PO ×2 (08:33→20:31)
[2019-12-14] MEDS: AMIODARONE HCL 200 MG TABLET PO (08:34)
[2019-12-14] MEDS: MIDODRINE HCL 10 MG TABLET PO ×3 (08:34→17:31)
[2019-12-14] MEDS: APIXABAN 5 MG TABLET PO ×2 (08:34→17:32)
[2019-12-14] MEDS: PANTOPRAZOLE SODIUM IV 40 MG VIAL IV PUSH (08:35)
[2019-12-14] MEDS: MEGESTROL ACETATE (*CHEMO) ORAL SUSP 40 MG/ML SYR 800 MG PO (08:35)
[2019-12-14] MEDS: TOLNAFTATE 1% POWDER 45 GM BTL 1 APPLIC TOPICAL ×2 (08:35→20:31)
[2019-12-14] MEDS: CHOLESTYRAMINE LIGHT 4 GM POWD.PACK PO ×2 (10:26→18:39)
--- NOTE | 2019-12-14 10:50 | PM.PNNEP ---
Progress Note: A&P Assessment and Plan (1) ESRD (end stage renal disease) on dialysis: Code(s): N18.6 - End stage renal disease; Z99.2 - Dependence on renal dialysis Status: Acute Assessment and Plan: Aurelia has end-stage renal disease. She will get her dialysis on Monday. (2) Sepsis: Qualifiers: Sepsis type: sepsis due to unspecified organism Sepsis acute organ dysfunction status: without acute organ dysfunction Qualified Code(s): A41.9 - Sepsis, unspecified organism Code(s): A41.9 - Sepsis, unspecified organism Status: Acute Assessment and Plan: Resolved (3) Decubitus ulcer: Qualifiers: Pressure injury location: heel Pressure injury stage: pressure injury of deep tissue Laterality: unspecified laterality Qualified Code(s): L89.606 - Pressure-induced deep tissue damage of unspecified heel Code(s): L89.90 - Pressure ulcer of unspecified site, unspecified stage Status: Acute Assessment and Plan: Local wound Care for this. (4) Atrial fibrillation: Qualifiers: Atrial fibrillation type: unspecified Qualified Code(s): I48.91 - Unspecified atrial fibrillation Code(s): I48.91 - Unspecified atrial fibrillation Status: Acute Assessment and Plan: Her heart rate is well controlled in the 70s. She is on amiodarone and Eliquis. (5) Acute on chronic respiratory failure with hypoxia and hypercapnia: Code(s): J96.21 - Acute and chronic respiratory failure with hypoxia; J96.22 - Acute and chronic respiratory failure with hypercapnia Status: Acute Assessment and Plan: Resolved (6) Chronic anemia: Code(s): D64.9 - Anemia, unspecified Status: Acute Assessment and Plan: Hemoglobin is target at 10.6. She gets Epogen with dialysis (7) Type 2 diabetes mellitus: Qualifiers: Diabetes mellitus chcf insulin use: with chcf use Diabetes mellitus complication status: with hyperglycemia Qualified Code(s): E11.65 - Type 2 diabetes mellitus with hyperglycemia; Z79.4 - detention (current) use of insulin Code(s): E11.9 - Type 2 diabetes mellitus without complications Status: Acute Assessment and Plan: On Accu-Cheks and sliding-scale insulin. Subjective Date/time seen: 12/14/19 10:50 Interval history: The patient is alert. Feels better today. She has somewhat frequent very low volumes smears but no diarrhea Review of Systems Cardiovascular: Cardiovascular: Reports no additional cardiovascular complaints Respiratory: Respiratory: Reports no additional respiratory complaints Gastrointestinal: Gastrointestinal: Reports no additional gastrointestinal complaints Genitourinary: Genitourinary: Reports no additional female genitourinary complaints Exam Narrative: Exam Narrative: WDWN in NAD skin no rash or subcu nodules head ncat lungs clear to auscultation cor reg no rub abd BS+ nontender and soft ext no edema. Objective Data Vital Signs Vital Signs: Vital Signs - 24 hr 12/13/19 11:00 12/13/19 11:15 12/13/19 11:30 Temperature Pulse Rate 72 77 70 Respiratory Rate Blood Pressure 169/65 H 151/82 H 165/77 H Pulse Oximetry 12/13/19 11:45 12/13/19 12:00 12/13/19 12:15 Temperature Pulse Rate 71 92 69 Respiratory Rate Blood Pressure 160/72 H 156/73 H 156/82 H Pulse Oximetry 12/13/19 12:35 12/13/19 13:46 12/13/19 15:00 Temperature 36.2 C L 36.1 C L Pulse Rate 71 70 Respiratory Rate 20 18 Blood Pressure 160/79 H 118/64 Pulse Oximetry 96 100 12/13/19 16:00 12/13/19 18:35 12/13/19 20:00 Temperature 36.2 C L Pulse Rate 73 72 68 Respiratory Rate 16 Blood Pressure 139/75 Pulse Oximetry 100 12/13/19 20:53 12/14/19 00:00 12/14/19 00:52 Temperature 36.1 C L Pulse Rate 72 70 Respiratory Rate 16 Blood Pressure 145/63 H Pulse Oximetry 100 97 12/14/19 04:00 12/14/19 05:05 0
[2019-12-14] MEDS: EUCERIN CREAM 120 GM JAR 1 APPLIC TOPICAL ×2 (11:13→20:31)
[2019-12-14 12:20] LABS: Glucose Point of Care 94 (65-105)
[2019-12-14 13:20] LABS: SARS-CoV-2 RNA PCR Negative
--- NOTE | 2019-12-14 14:11 | PM.IMPN ---
Progress Note: A&P Assessment and Plan (1) Hypotension: Qualifiers: Hypotension type: unspecified hypotension type Qualified Code(s): I95.9 - Hypotension, unspecified Code(s): I95.9 - Hypotension, unspecified Status: Acute Assessment and Plan: Likely due to septic shock with likely C diff colitis given CT findings. The patient received empiric cefepime and vanc in the ER due to pyuria. However I suspect pyuria may be due to the patient's chronic low urine output and be more of a asymptomatic issue. Will hold off on giving any further antibiotics for UTI and await urine culture. Will start the patient on Dificid. Infectious disease with has been consult on the patient has they had previously recommended a week course of vancomycin which the patient completed November 17. Will await further recommendations given her recurrence after such a long taper. The patient's Levophed was initially at 15 mcg on arrival to the ICU but has been weaned down to 8. 12/14/19 14:11 With history of end-stage disease on hemodialysis yesterday during her dialysis patient was hypotensive and was sent to emergency department for further evaluation but emergency depart patient blood pressure was low and patient was started on Levophed and transferred to ICU, patient had been treated recently for C diff with oral vancomycin and had a complaint of nausea or vomiting time 2 mostly stomach content, and diarrhea most likely patient has C diff, patient is seen by Dr. quarles started the patient on Aztreo # 1 (antibiotic #2) and fidaxomicin # 1. Currently patient in ICU receiving dialysis, today patient is more cooperative and pleasant, denies any complaint of chest pain shortness of breath palpitation fever or chills patient is negative for C diff, patient blood pressure still running low patient is on norepinephrine patient is seen by ict development manager, print production manager and Dr. quarles appreciate, today patient is seen by Dr. quarles and suspect UTI however. Aztreonam and start the patient on Cipro , will continue to treat was C diff with fidaxomicin # 5/10, patient is minimal urine production is patient on end-stage renal disease on hemodialysis, patient is off pressor and was started on midodrine, on 12/12 patient blood pressure was increasing we held midodrine, and patient had her dialysis, patient is out of ICU on medical floor will continue monitor patient and and continue present management patient is seen by Dr. Gonzalez, patient will have dialysis on Monday will discharge the patient. (2) ESRD (end stage renal disease) on dialysis: Code(s): N18.6 - End stage renal disease; Z99.2 - Dependence on renal dialysis Status: Acute Assessment and Plan: Will consult nephrology for dialysis management. Subjective Date/time seen: 12/14/19 14:11 With history of end-stage disease on hemodialysis yesterday during her dialysis patient was hypotensive and was sent to emergency department for further evaluation but emergency depart patient blood pressure was low and patient was started on Levophed and transferred to ICU, patient had been treated recently for C diff with oral vancomycin and had a complaint of nausea or vomiting time 2 mostly stomach content, and diarrhea most likely patient has C diff, patient is seen by Dr. quarles started the patient on Aztreo # 1 (antibiotic #2) and fidaxomicin # 1. Currently patient in ICU receiving dialysis, today patient is more cooperative and pleasant, denies any complaint of chest pain shortness of breath palpitation fever or chills patient is negative for C diff, patient blood pressure still running low patient is on norepinephrine patient is seen by ict development manager, print production manager and Dr. quarles appreciate, today patient is seen by Dr. quarles and suspect UTI however. Aztreonam and start the patient on Cipro , will continue to treat was C diff with fidaxomicin # 5/10, patient is minimal urine production is patient
[2019-12-14 16:41] LABS: Glucose Point of Care 111 (65-105)
[2019-12-14] MEDS: COLLAGENASE OINT 30 GM TUBE 1 APPLIC TOPICAL (17:30)
[2019-12-14] MEDS: CIPROFLOXACIN 500 MG TAB PO (17:33)
[2019-12-14] MEDS: ALPRAZOLAM 0.5 MG TABLET PO (20:31)
[2019-12-14] MEDS: SIMVASTATIN 20 MG TABLET 40 MG PO (20:31)
[2019-12-14 21:50] LABS: Glucose Point of Care 108 (65-105)
[2019-12-15] VITALS (13 sets, daily range): BP systolic 106–157; BP diastolic 51–75; PULSE 65–91; RESP 16–18; TEMP 35.9–36.6; O2SAT 98–100
[2019-12-15 05:21] LABS: Hematocrit 36.2 % (37.0-47.0); Hemoglobin 10.9 g/dL (12.0-15.0); Mean Corpuscular HGB Conc 30.1 g/dl (32-36); Mean Corpuscular Hemoglobin 30.9 pg (26-34); Mean Corpuscular Volume 102.5 fl (80-100); Mean Platelet Volume 9.2 fl (7.4-10.4); Platelet Count Result 164 k/mm3 (150-375); Red Blood Count 3.53 M/mm3 (4.2-5.4); Red Cell Distribution Width 15.9 % (11.5-14.5); White Blood Count 6.2 K/mm3 (4.5-10.0)
[2019-12-15 05:58] LABS: Blood Urea Nitrogen 10 mg/dL (7-17); Carbon Dioxide 32 mmol/L (22-30); Chloride 100 mmol/L (98-107); Estimated CRCL calculation 16 ml/min; Estimated Glomerular Filt Rate 13; Glucose 90 mg/dL (65-105); Magnesium 1.7 mg/dL (1.6-2.3); Phosphorus 2.3 mg/dL (2.5-4.5); Potassium 3.7 mmol/L (3.4-5.0); Sodium 133 mmol/L (137-145)
[2019-12-15 07:58] LABS: Glucose Point of Care 94 (65-105)
[2019-12-15] MEDS: PANTOPRAZOLE SODIUM IV 40 MG VIAL IV PUSH (08:49)
[2019-12-15] MEDS: ACIDOPHILUS/BULGARICUS CHEWABLE TABLET 1 TABLET PO ×4 (08:50→20:08)
[2019-12-15] MEDS: COLLAGENASE OINT 30 GM TUBE 1 APPLIC TOPICAL (08:50)
[2019-12-15] MEDS: MEGESTROL ACETATE (*CHEMO) ORAL SUSP 40 MG/ML SYR 800 MG PO (08:50)
[2019-12-15] MEDS: EUCERIN CREAM 120 GM JAR 1 APPLIC TOPICAL ×2 (08:51→20:08)
[2019-12-15] MEDS: TOLNAFTATE 1% POWDER 45 GM BTL 1 APPLIC TOPICAL ×2 (08:51→20:08)
[2019-12-15] MEDS: MIDODRINE HCL 10 MG TABLET PO ×3 (08:52→17:16)
[2019-12-15] MEDS: AMIODARONE HCL 200 MG TABLET PO (08:53)
[2019-12-15] MEDS: FIDAXOMICIN 200 MG TABLET PO ×2 (08:57→20:08)
[2019-12-15] MEDS: APIXABAN 5 MG TABLET PO ×2 (08:58→17:17)
[2019-12-15] MEDS: CHOLESTYRAMINE LIGHT 4 GM POWD.PACK PO ×2 (10:42→18:59)
--- NOTE | 2019-12-15 11:00 | PM.PNNEP ---
Progress Note: A&P Assessment and Plan (1) ESRD (end stage renal disease) on dialysis: Code(s): N18.6 - End stage renal disease; Z99.2 - Dependence on renal dialysis Status: Acute Assessment and Plan: Aurelia has end-stage renal disease. Dialysis due tomorrow. (2) Sepsis: Qualifiers: Sepsis type: sepsis due to unspecified organism Sepsis acute organ dysfunction status: without acute organ dysfunction Qualified Code(s): A41.9 - Sepsis, unspecified organism Code(s): A41.9 - Sepsis, unspecified organism Status: Acute Assessment and Plan: Resolved (3) Decubitus ulcer: Qualifiers: Pressure injury location: heel Pressure injury stage: pressure injury of deep tissue Laterality: unspecified laterality Qualified Code(s): L89.606 - Pressure-induced deep tissue damage of unspecified heel Code(s): L89.90 - Pressure ulcer of unspecified site, unspecified stage Status: Acute Assessment and Plan: Local wound Care for this. (4) Atrial fibrillation: Qualifiers: Atrial fibrillation type: unspecified Qualified Code(s): I48.91 - Unspecified atrial fibrillation Code(s): I48.91 - Unspecified atrial fibrillation Status: Acute Assessment and Plan: Her heart rate is well controlled in the 70s. She is on amiodarone and Eliquis. (5) Acute on chronic respiratory failure with hypoxia and hypercapnia: Code(s): J96.21 - Acute and chronic respiratory failure with hypoxia; J96.22 - Acute and chronic respiratory failure with hypercapnia Status: Acute Assessment and Plan: Resolved (6) Chronic anemia: Code(s): D64.9 - Anemia, unspecified Status: Acute Assessment and Plan: Hemoglobin is target at 10.6. She gets Epogen [id number] with each dialysis (7) Type 2 diabetes mellitus: Qualifiers: Diabetes mellitus half-way insulin use: with meterman use Diabetes mellitus complication status: with hyperglycemia Qualified Code(s): E11.65 - Type 2 diabetes mellitus with hyperglycemia; Z79.4 - rodent exterminator (current) use of insulin Code(s): E11.9 - Type 2 diabetes mellitus without complications Status: Acute Assessment and Plan: On Accu-Cheks and sliding-scale insulin. Subjective Date/time seen: 12/15/19 11:00 Interval history: The patient is alert. Still having only small smears for bowel movements. Getting [employer] to manage this. Review of Systems Cardiovascular: Cardiovascular: Reports no additional cardiovascular complaints Respiratory: Respiratory: Reports no additional respiratory complaints Gastrointestinal: Gastrointestinal: Reports no additional gastrointestinal complaints Genitourinary: Genitourinary: Reports no additional female genitourinary complaints Exam Narrative: Exam Narrative: WDWN in NAD skin no rash or subcu nodules head ncat lungs clear to auscultation cor reg no rub or gallop abd BS+ nontender and soft ext no edema. Objective Data Vital Signs Vital Signs: Vital Signs - 24 hr 12/14/19 12:00 12/14/19 14:00 12/14/19 16:00 Temperature 36.1 C L Pulse Rate 62 65 66 Respiratory Rate 22 H Blood Pressure 142/64 H Pulse Oximetry 98 12/14/19 18:00 12/14/19 19:25 12/14/19 20:00 Temperature 36.2 C L Pulse Rate 67 66 Respiratory Rate 18 Blood Pressure 127/50 L Pulse Oximetry 100 98 12/14/19 22:00 12/15/19 00:00 12/15/19 02:00 Temperature 36.1 C L 36.1 C L Pulse Rate 67 69 68 Respiratory Rate 19 18 Blood Pressure 153/70 H 157/75 H Pulse Oximetry 99 98 12/15/19 04:00 12/15/19 06:00 12/15/19 08:00 Temperature 36.0 C L Pulse Rate 66 67 77 Respiratory Rate 18 Blood Pressure 147/67 H Pulse Oximetry 100 12/15/19 08:35 12/15/19 08:53 12/15/19 08:58 Temperature Pulse Rate 77 Respiratory Rate 16 Blood Pressure Pulse Oximetry 100 100 12/15/19 10:46 Temperature 36.1 C L Pulse
[2019-12-15] MEDS: SALINE 0.65% NAS SOLN 44 ML BTL 1 SPRAY NASAL ×2 (11:52→17:18)
[2019-12-15 11:55] LABS: Glucose Point of Care 93 (65-105)
--- NOTE | 2019-12-15 15:51 | PM.IMPN ---
Progress Note: A&P Assessment and Plan (1) Hypotension: Qualifiers: Hypotension type: unspecified hypotension type Qualified Code(s): I95.9 - Hypotension, unspecified Code(s): I95.9 - Hypotension, unspecified Status: Acute Assessment and Plan: Likely due to septic shock with likely C diff colitis given CT findings. The patient received empiric cefepime and vanc in the ER due to pyuria. However I suspect pyuria may be due to the patient's chronic low urine output and be more of a asymptomatic issue. Will hold off on giving any further antibiotics for UTI and await urine culture. Will start the patient on Dificid. Infectious disease with has been consult on the patient has they had previously recommended a week course of vancomycin which the patient completed November 17. Will await further recommendations given her recurrence after such a long taper. The patient's Levophed was initially at 15 mcg on arrival to the ICU but has been weaned down to 8. 12/15/19 15:51 With history of end-stage disease on hemodialysis yesterday during her dialysis patient was hypotensive and was sent to emergency department for further evaluation but emergency depart patient blood pressure was low and patient was started on Levophed and transferred to ICU, patient had been treated recently for C diff with oral vancomycin and had a complaint of nausea or vomiting time 2 mostly stomach content, and diarrhea most likely patient has C diff, patient is seen by Dr. quarles started the patient on Aztreo # 1 (antibiotic #2) and fidaxomicin # 1. patient was in ICU received dialysis, patient is more cooperative and pleasant, denied any complaint of chest pain shortness of breath palpitation fever or chills patient is found to have negative for C diff, patient blood pressure was still running low patient was on norepinephrine patient was seen by insole bottom filler, gun perforator and Dr. quarles appreciate, patient was seen by Dr. quarles and suspect UTI however stopped Aztreonam and started the patient on Cipro and continued to treat was C diff with fidaxomicin # 12/03, patient is minimal urine production is patient on end-stage renal disease on hemodialysis, patient is off pressor and was started on midodrine, on 12/12 patient blood pressure was increasing we held midodrine, and patient had her dialysis, patient is out of ICU on medical floor will continue monitor patient and and continue present management patient is seen by Dr. Gonzalez, patient will have dialysis on Monday will discharge the patient. (2) ESRD (end stage renal disease) on dialysis: Code(s): N18.6 - End stage renal disease; Z99.2 - Dependence on renal dialysis Status: Acute Assessment and Plan: Will consult nephrology for dialysis management. Subjective Date/time seen: 12/15/19 15:51 With history of end-stage disease on hemodialysis yesterday during her dialysis patient was hypotensive and was sent to emergency department for further evaluation but emergency depart patient blood pressure was low and patient was started on Levophed and transferred to ICU, patient had been treated recently for C diff with oral vancomycin and had a complaint of nausea or vomiting time 2 mostly stomach content, and diarrhea most likely patient has C diff, patient is seen by Dr. quarles started the patient on Aztreo # 1 (antibiotic #2) and fidaxomicin # 1. patient was in ICU received dialysis, patient is more cooperative and pleasant, denied any complaint of chest pain shortness of breath palpitation fever or chills patient is found to have negative for C diff, patient blood pressure was still running low patient was on norepinephrine patient was seen by insole bottom filler, gun perforator and Dr. quarles appreciate, patient was seen by Dr. quarles and suspect UTI however stopped Aztreonam and started the patient on Cipro and continued to treat was C diff with fidaxomicin # 6/10, patient is minimal urine
[2019-12-15 16:33] LABS: Glucose Point of Care 113 (65-105)
[2019-12-15] MEDS: CIPROFLOXACIN 500 MG TAB PO (17:17)
[2019-12-15] MEDS: ALPRAZOLAM 0.5 MG TABLET PO (20:08)
[2019-12-15] MEDS: SIMVASTATIN 20 MG TABLET 40 MG PO (20:08)
[2019-12-15 21:07] LABS: Glucose Point of Care 112 (65-105)
[2019-12-16] VITALS (25 sets, daily range): BP systolic 84–173; BP diastolic 22–80; PULSE 70–98; RESP 16–20; TEMP 36.1–37; O2SAT 98–99
[2019-12-16 05:36] LABS: Hematocrit 36.1 % (37.0-47.0); Hemoglobin 10.8 g/dL (12.0-15.0); Mean Corpuscular HGB Conc 29.9 g/dl (32-36); Mean Corpuscular Hemoglobin 30.8 pg (26-34); Mean Corpuscular Volume 102.8 fl (80-100); Mean Platelet Volume 9.3 fl (7.4-10.4); Platelet Count Result 168 k/mm3 (150-375); Red Blood Count 3.51 M/mm3 (4.2-5.4); Red Cell Distribution Width 15.8 % (11.5-14.5)
[2019-12-16 05:45] LABS: Albumin Level 2.3 g/dL (3.5-5.1); Blood Urea Nitrogen 14 mg/dL (7-17); Carbon Dioxide 32 mmol/L (22-30); Chloride 101 mmol/L (98-107); Estimated CRCL calculation 13 ml/min; Estimated Glomerular Filt Rate 10; Glucose 100 mg/dL (65-105); Magnesium 1.9 mg/dL (1.6-2.3); Phosphorus 2.6 mg/dL (2.5-4.5); Potassium 4.1 mmol/L (3.4-5.0); Sodium 133 mmol/L (137-145)
[2019-12-16 07:45] LABS: Glucose Point of Care 107 (65-105)
[2019-12-16] MEDS: SODIUM CHLORIDE 0.9% IV 1,000 ML 999 ML (08:21)
--- NOTE | 2019-12-16 09:50 | PM.PNNEP ---
Progress Note: A&P Assessment and Plan (1) ESRD (end stage renal disease) on dialysis: Code(s): N18.6 - End stage renal disease; Z99.2 - Dependence on renal dialysis Status: Acute Assessment and Plan: initially JESSICA on CKD requiring dialysis however, recurrent admissions/hospitalizations have likely led to further insults to her kidneys -- she has probably progressed to end-stage renal disease HD today and continue M/W/F schedule follow electrolytes, volume status, and clearance (2) Sepsis: Qualifiers: Sepsis type: sepsis due to unspecified organism Sepsis acute organ dysfunction status: without acute organ dysfunction Qualified Code(s): A41.9 - Sepsis, unspecified organism Code(s): A41.9 - Sepsis, unspecified organism Status: Acute Assessment and Plan: resolved on midodrine for BP support follow hemodynamics (3) Decubitus ulcer: Qualifiers: Pressure injury location: heel Pressure injury stage: pressure injury of deep tissue Laterality: unspecified laterality Qualified Code(s): L89.606 - Pressure-induced deep tissue damage of unspecified heel Code(s): L89.90 - Pressure ulcer of unspecified site, unspecified stage Status: Acute Assessment and Plan: continue local wound care off loading as tolerated (4) Atrial fibrillation: Qualifiers: Atrial fibrillation type: unspecified Qualified Code(s): I48.91 - Unspecified atrial fibrillation Code(s): I48.91 - Unspecified atrial fibrillation Status: Acute Assessment and Plan: reasonable control continue amiodarone and eliquis (5) Acute on chronic respiratory failure with hypoxia and hypercapnia: Code(s): J96.21 - Acute and chronic respiratory failure with hypoxia; J96.22 - Acute and chronic respiratory failure with hypercapnia Status: Acute Assessment and Plan: resolved follow respiratory status (6) Chronic anemia: Code(s): D64.9 - Anemia, unspecified Status: Acute Assessment and Plan: due to #1 H/H at goal continue Epogen with HD (7) Type 2 diabetes mellitus: Qualifiers: Diabetes mellitus nursing home insulin use: with terminal gauger use Diabetes mellitus complication status: with hyperglycemia Qualified Code(s): E11.65 - Type 2 diabetes mellitus with hyperglycemia; Z79.4 - jail (current) use of insulin Code(s): E11.9 - Type 2 diabetes mellitus without complications Status: Acute Assessment and Plan: follow accuchecks on sliding-scale insulin Will continue to follow. Subjective Date/time seen: 12/16/19 09:50 Tolerating dialysis at the time of my visit (seen on HD at ~ 9:40AM); no apparent distress voiced; no issues or problems overnight or earlier this AM to report; states BMs seem to be more formed. Exam Narrative: Exam Narrative: General: WD/WN female in NAD Heart: normal S1 and S2; no rub Lungs: clear to auscultation Abdomen: soft, nontender, nondistended, positive bowel sounds Extremities: no cyanosis or clubbing; no edema Skin: warm and dry Objective Data Vital Signs Vital Signs: Vital Signs Temp Pulse Resp BP Pulse Ox 12/16/19 11:01 87 114/42 L 12/16/19 10:45 79 93/42 L 12/16/19 10:30 92 104/50 L 12/16/19 10:15 92 103/32 L 12/16/19 10:00 90 114/59 L 12/16/19 09:45 89 111/48 L 12/16/19 09:30 88 117/60 12/16/19 09:15 76 93/47 L 12/16/19 09:00 90 109/53 L 12/16/19 08:46 81 107/54 L 12/16/19 08:30 75 140/79 12/16/19 08:27 36.3 C L 86 20 120/60 12/16/19 08:20 78 173/80 H 12/16/19 08:10 36.3 C L 81 16 153/80 H 12/16/19 05:44 36.2 C L 77 20 173/68 H 99 12/16/19 02:00 36.3 C L 70 18 148/62 H 98 12/15/19 22:36 87 99 12/15/19 22:00 36.6 C 69 16 156/69 H 99 12/15/19 18:45 36.2 C L 91 18 132/51 L 100 12/15/19 14:56 35.9 C L 67 18
--- NOTE | 2019-12-16 09:50 | P.PNNP_ITS ---
Progress Note: A&P Assessment and Plan (1) ESRD (end stage renal disease) on dialysis: Code(s): N18.6 - End stage renal disease; Z99.2 - Dependence on renal dialysis Status: Acute Assessment and Plan: * initially JESSICA on CKD requiring dialysis * however, recurrent admissions/hospitalizations have likely led to further insults to her kidneys -- she has probably progressed to end-stage renal disease * HD today and continue M/W/F schedule * follow electrolytes, volume status, and clearance (2) Sepsis: Qualifiers: Sepsis type: sepsis due to unspecified organism Sepsis acute organ dysfunction status: without acute organ dysfunction Qualified Code(s): A41.9 - Sepsis, unspecified organism Code(s): A41.9 - Sepsis, unspecified organism Status: Acute Assessment and Plan: * resolved * on midodrine for BP support * follow hemodynamics (3) Decubitus ulcer: Qualifiers: Pressure injury location: heel Pressure injury stage: pressure injury of deep tissue Laterality: unspecified laterality Qualified Code(s): L89.606 - Pressure-induced deep tissue damage of unspecified heel Code(s): L89.90 - Pressure ulcer of unspecified site, unspecified stage Status: Acute Assessment and Plan: * continue local wound care * off loading as tolerated (4) Atrial fibrillation: Qualifiers: Atrial fibrillation type: unspecified Qualified Code(s): I48.91 - Unspecified atrial fibrillation Code(s): I48.91 - Unspecified atrial fibrillation Status: Acute Assessment and Plan: * reasonable control * continue amiodarone and eliquis (5) Acute on chronic respiratory failure with hypoxia and hypercapnia: Code(s): J96.21 - Acute and chronic respiratory failure with hypoxia; J96.22 - Acute and chronic respiratory failure with hypercapnia Status: Acute Assessment and Plan: * resolved * follow respiratory status (6) Chronic anemia: Code(s): D64.9 - Anemia, unspecified Status: Acute Assessment and Plan: * due to #1 * H/H at goal * continue Epogen with HD (7) Type 2 diabetes mellitus: Qualifiers: Diabetes mellitus termite control service representative insulin use: with termite control service representative use Diabetes mellitus complication status: with hyperglycemia Qualified Code(s): E11.65 - Type 2 diabetes mellitus with hyperglycemia; Z79.4 - retirement (current) use of insulin Code(s): E11.9 - Type 2 diabetes mellitus without complications Status: Acute Assessment and Plan: * follow accuchecks * on sliding-scale insulin Will continue to follow. Subjective Date/time seen: 12/16/19 09:50 Tolerating dialysis at the time of my visit (seen on HD at ~ 9:40AM); no apparent distress voiced; no issues or problems overnight or earlier this AM to report; states BMs seem to be more formed. Exam Narrative: Exam Narrative: General: WD/WN female in NAD Heart: normal S1 and S2; no rub Lungs: clear to auscultation Abdomen: soft, nontender, nondistended, positive bowel sounds Extremities: no cyanosis or clubbing; no edema Skin: warm and dry Objective Data Vital Signs Vital Signs: Vital Signs Temp Pulse Resp BP Pulse Ox 12/16/19 11:01 87 114/42 L 12/16/19 10:45 79 93/42 L 12/16/19 10:30 92 104/50 L 12/16/19 10:15 92 103/32 L 12/16/19 10:00 90 114/59 L 11/25
[2019-12-16] MEDS: EPOETIN ALFA 10,000 UNITS/ML VIAL 10000 UNITS IV PUSH (10:21)
--- NOTE | 2019-12-16 11:48 | WPDINFPN2 ---
Progress Note: A&P Assessment and Plan (1) Hypotension: Qualifiers: Hypotension type: unspecified hypotension type Qualified Code(s): I95.9 - Hypotension, unspecified Code(s): I95.9 - Hypotension, unspecified Status: Acute Assessment and Plan: 1. Hypotension with tissue hypoperfusion, infectious vs other, improved findings. UTI with Citrobacter is possible, but more likely is relapsed C diff infection 2. CRF 3. Recent UTI and C diff infection 4. Multiple allergies REC minimal U.O. at baseline. off Aztreo (antibiotic #5), stop ciprofloxacin #5/ 5 days. fidaxomicin # 7 / 10 days. Ok discharge planning, will sign off.. Subjective Date/time seen: 12/16/19 11:48 Interval history: on HD. BM x 2 each day, mushy no other complaints Exam Narrative: Exam Narrative: afebrile Const: General: no acute distress Resp: Effort & Inspection: normal respiratory effort Auscultation: clear to auscultation bilaterally Cardio: Rate: regular rate Rhythm: regular rhythm GI: Inspection: non-distended GI Palp: Yes Soft to palpation, No Tenderness to palpation present (GI) and No Guarding due to palpation present (GI) Objective Data Vital Signs Vital Signs: Vital Signs - 24 hr 12/15/19 14:56 12/15/19 18:45 12/15/19 22:00 Temperature 35.9 C L 36.2 C L 36.6 C Pulse Rate 67 91 69 Respiratory Rate 18 18 16 Blood Pressure 106/60 132/51 L 156/69 H Pulse Oximetry 100 100 99 12/15/19 22:36 12/16/19 02:00 12/16/19 05:44 Temperature 36.3 C L 36.2 C L Pulse Rate 87 70 77 Respiratory Rate 18 20 Blood Pressure 148/62 H 173/68 H Pulse Oximetry 99 98 99 12/16/19 08:10 12/16/19 08:20 12/16/19 08:27 Temperature 36.3 C L 36.3 C L Pulse Rate 81 78 86 Respiratory Rate 16 20 Blood Pressure 153/80 H 173/80 H 120/60 Pulse Oximetry 12/16/19 08:30 12/16/19 08:46 12/16/19 09:00 Temperature Pulse Rate 75 81 90 Respiratory Rate Blood Pressure 140/79 107/54 L 109/53 L Pulse Oximetry 12/16/19 09:15 12/16/19 09:30 12/16/19 09:45 Temperature Pulse Rate 76 88 89 Respiratory Rate Blood Pressure 93/47 L 117/60 111/48 L Pulse Oximetry 12/16/19 10:00 12/16/19 10:15 12/16/19 10:30 Temperature Pulse Rate 90 92 92 Respiratory Rate Blood Pressure 114/59 L 103/32 L 104/50 L Pulse Oximetry 12/16/19 10:45 12/16/19 11:01 12/16/19 11:15 Temperature Pulse Rate 79 87 93 Respiratory Rate Blood Pressure 93/42 L 114/42 L 101/48 L Pulse Oximetry 12/16/19 11:30 Temperature Pulse Rate 97 Respiratory Rate Blood Pressure 104/56 L Pulse Oximetry Intake/Output Intake/Output: Intake & Output 12/13/19 12/14/19 12/15/19 12/16/19 23:59 23:59 23:59 23:59 Intake Total 1440 660 630 320 Output Total 0 0 Balance 1440 660 630 320 Meds/Results Medications: Active Medications Generic Name Dose Route Start Last Admin Trade Name Freq PRN Reason Stop Dose Admin Acetaminophen 650 mg 12/09/19 20:42 Tylenol Tablet PO Q4H PRN Mild Pain (1-5) Or Fever Albuterol 5 mg 12/09/19 20:42 Albuterol Sulf Neb 2.5mg/0.5ml INHALATION Q6HRT PRN Shortness Of Breath Or Wheezing Alprazolam 0.5 mg 12/09/19 20:42 12/15/19 20:08 Xanax PO 0.5 mg HS PRN Administration Anxiety Amiodarone HCl 200 mg 12/10/19 09:00 12/15/19 08:53 Pacerone PO 200 mg DAILY DEJON Administration Apixaban 5 mg 12/10/19 09:00 12/15/19 17:17 Eliquis PO 5 mg BID DEJON Administration Artificial Tears 1 drop 12/09/19 20:42 Artificial Tears EACH EYE QID PRN Dry Eye(S) Cholestyramine Resin 4 gm 12/10/19 10:00 12/15/19 18:59 Questran Light Packet PO 4 gm BID@1000,1800 DEJON Administration Ciprofloxacin 500 mg 12/12/19 17:00 12/15/19 17:17 Cipro Po PO 12/16/19 17:01 500 mg DAILY@1700 DEJON Administration Collagenase 1 applic 12/14/19 09:00 12/15/19 08:50 Santyl Oint TOPICAL 1 applic
[2019-12-16 12:28] LABS: Glucose Point of Care 92 (65-105)
[2019-12-16] MEDS: APIXABAN 5 MG TABLET PO ×2 (12:54→17:18)
[2019-12-16] MEDS: MEGESTROL ACETATE (*CHEMO) ORAL SUSP 40 MG/ML SYR 800 MG PO (12:55)
[2019-12-16] MEDS: PANTOPRAZOLE SODIUM IV 40 MG VIAL IV PUSH (12:55)
[2019-12-16] MEDS: FIDAXOMICIN 200 MG TABLET PO (12:55)
[2019-12-16] MEDS: COLLAGENASE OINT 30 GM TUBE 1 APPLIC TOPICAL (12:55)
[2019-12-16] MEDS: EUCERIN CREAM 120 GM JAR 1 APPLIC TOPICAL (12:56)
[2019-12-16] MEDS: MIDODRINE HCL 10 MG TABLET PO ×2 (12:56→17:18)
[2019-12-16] MEDS: ACIDOPHILUS/BULGARICUS CHEWABLE TABLET 1 TABLET PO ×2 (12:56→17:18)
[2019-12-16] MEDS: TOLNAFTATE 1% POWDER 45 GM BTL 1 APPLIC TOPICAL (12:57)
[2019-12-16] MEDS: AMIODARONE HCL 200 MG TABLET PO (12:57)
[2019-12-16] MEDS: SALINE 0.65% NAS SOLN 44 ML BTL 1 SPRAY NASAL (12:57)
--- NOTE | 2019-12-16 14:20 | PM.DS ---
DS: Admitting Diagnosis Admitting Diagnosis Admitting Diagnosis: Hypotension, unspecified DS: Discharge Diagnosis Discharge Diagnosis (1) Hypotension: Qualifiers: Hypotension type: unspecified hypotension type Qualified Code(s): I95.9 - Hypotension, unspecified Code(s): I95.9 - Hypotension, unspecified Status: Acute Assessment and Plan: Likely due to septic shock with likely C diff colitis given CT findings. The patient received empiric cefepime and vanc in the ER due to pyuria. However I suspect pyuria may be due to the patient's chronic low urine output and be more of a asymptomatic issue. Will hold off on giving any further antibiotics for UTI and await urine culture. Will start the patient on Dificid. Infectious disease with has been consult on the patient has they had previously recommended a week course of vancomycin which the patient completed November 17. Will await further recommendations given her recurrence after such a long taper. The patient's Levophed was initially at 15 mcg on arrival to the ICU but has been weaned down to 8. 12/15/19 15:51 With history of end-stage disease on hemodialysis yesterday during her dialysis patient was hypotensive and was sent to emergency department for further evaluation but emergency depart patient blood pressure was low and patient was started on Levophed and transferred to ICU, patient had been treated recently for C diff with oral vancomycin and had a complaint of nausea or vomiting time 2 mostly stomach content, and diarrhea most likely patient has C diff, patient is seen by Dr. quarles started the patient on Aztreo # 1 (antibiotic #2) and fidaxomicin # 1. patient was in ICU received dialysis, patient is more cooperative and pleasant, denied any complaint of chest pain shortness of breath palpitation fever or chills patient is found to have negative for C diff, patient blood pressure was still running low patient was on norepinephrine patient was seen by battery filler, paint stockman and Dr. quarles appreciate, patient was seen by Dr. quarles and suspect UTI however stopped Aztreonam and started the patient on Cipro and continued to treat was C diff with fidaxomicin # 12/03, patient is minimal urine production is patient on end-stage renal disease on hemodialysis, patient is off pressor and was started on midodrine, on 12/12 patient blood pressure was increasing we held midodrine, and patient had her dialysis, patient is out of ICU on medical floor will continue monitor patient and and continue present management patient is seen by Dr. Gonzalez, patient will have dialysis on Monday will discharge the patient. (2) ESRD (end stage renal disease) on dialysis: Code(s): N18.6 - End stage renal disease; Z99.2 - Dependence on renal dialysis Status: Acute Assessment and Plan: Will consult nephrology for dialysis management. DS: Summary Hospital Course Reason for hospitalization: Aurelia Alcantara is a 69 year old female with a past medical history of chronic hypoxic hypercapnic respiratory failure, severe pulmonary hypertension, end-stage renal disease on hemodialysis, and recent C diff colitis who presented to the ER with hypotension from [facility] due to hypotension. The patient had [facility] but she did not receive hemodialysis due to hypotension. She was redirected to come to the ER. Source of information is from past medical records and ER records. long term staff reports that the patient has had intermittent confusion ever since her hospitalization in August. The patient had finished an 8 week course of p.o. vancomycin November 18, 2019. [facility] staff contacted the jail who reported that the patient has continued to have diarrhea. However, for the last 48 hours the patient has had only 2 liquid smears and they had been unable to collect a stool sample to send for C diff. At the time of m
[2019-12-16 16:30] LABS: Glucose Point of Care 114 (65-105)
[2019-12-16] MEDS: CIPROFLOXACIN 500 MG TAB PO (17:18)
== END 2019-12-16 18:31 | DRG 871 ==
LOC: ANHED 16:27 → ANHICU 19:04 → ANH3MED 12-13 09:02
PROVIDERS: Emergency Medicine; Family Medicine; Internal Medicine; Internal Medicine Nephrology; Admitting Provider Family Medicine; Emergency Provider Emergency Medicine; PCP Family Medicine; Visit Provider Family Medicine
DX: A41.9 Sepsis, unspecified organism (principal); R65.21 Severe sepsis with septic shock; N18.6 End stage renal disease; J96.21 Acute and chronic respiratory failure with hypoxia; J96.22 Acute and chronic respiratory failure with hypercapnia; A04.72 Enterocolitis due to Clostridium difficile, not specified as recurrent; I13.2 Hypertensive heart and chronic kidney disease with heart failure and with stage 5 chronic kidney disease, or end stage renal disease; I50.32 Chronic diastolic (congestive) heart failure; E87.2 Acidosis; I69.354 Hemiplegia and hemiparesis following cerebral infarction affecting left non-dominant side; G93.49 Other encephalopathy; A04.71 Enterocolitis due to Clostridium difficile, recurrent; T83.511A Infection and inflammatory reaction due to indwelling urethral catheter, initial encounter; N39.0 Urinary tract infection, site not specified; B96.89 Other specified bacterial agents as the cause of diseases classified elsewhere; Z11.59 Encounter for screening for other viral diseases; E11.22 Type 2 diabetes mellitus with diabetic chronic kidney disease; E11.42 Type 2 diabetes mellitus with diabetic polyneuropathy; F41.9 Anxiety disorder, unspecified; I48.91 Unspecified atrial fibrillation; L89.302 Pressure ulcer of unspecified buttock, stage 2; K74.60 Unspecified cirrhosis of liver; I95.9 Hypotension, unspecified; E78.5 Hyperlipidemia, unspecified; M19.90 Unspecified osteoarthritis, unspecified site; D64.9 Anemia, unspecified; I87.2 Venous insufficiency (chronic) (peripheral); E11.65 Type 2 diabetes mellitus with hyperglycemia; I27.20 Pulmonary hypertension, unspecified; N25.0 Renal osteodystrophy; E66.9 Obesity, unspecified; I82.462 Acute embolism and thrombosis of left calf muscular vein; L89.629 Pressure ulcer of left heel, unspecified stage; L89.619 Pressure ulcer of right heel, unspecified stage; Z68.36 Body mass index [BMI] 36.0-36.9, adult; Z99.2 Dependence on renal dialysis; Z99.81 Dependence on supplemental oxygen; Z87.891 Personal history of nicotine dependence; Z79.01 Long term (current) use of anticoagulants; Z79.4 Long term (current) use of insulin
CPT/HCPCS: 36415; 36556; 36600; 71046; 74176; 80048; 80053; 80069; 81001; 82010; 82375; 82805; 83050; 83605; 83735; 83883; 84100; 85025; 85027; 85610; 85730; 86140; 86334; 86706; 87040; 87077; 87086; 87088; 87186; 87340; 87635; 93005; 96361; 96365; 96366; 96367; 96368; 96375; 99285; A9270; C1751; C8929; C9113; C9803; G0257; G0378; J0692; J1644; J2405; J3370; J7030; Q4081; Q9957; U0003

== ENCOUNTER 2020-01-09 18:08 | Inpatient (IN) | payer MEDICARE, MEDICAID, SELFPAY ==
[2020-01-09] VITALS (8 sets, daily range): BP systolic 91–165; BP diastolic 50–73; PULSE 49–65; RESP 15–29; TEMP 36.1–37.1; O2SAT 96–100; BMI 30.8
--- NOTE | ~2020-01-09 | CT_ITS ---
EXAMINATION: CT brain wo con DATE: 01/09/2020 19:32 INDICATION: Altered mental status. TECHNIQUE: Computed tomography (CT) of the head was performed without intravenous contrast. The mA wa s adjusted according to patient size. Iterative reconstruction technique was employed. The dose-lengt h product was 1059.33 mGy-cm. COMPARISON: Head CT 09/03/2019 FINDINGS: There is an old lacunar infarct in the left internal capsule. There are scattered areas of low attenuation in the cerebral white matter. There is an old infarct in the right parietal lobe. The re is no intracranial hemorrhage, acute infarction, or abnormal intracranial mass lesion. The ventric les are normal in size. The orbits are normal. There is mild mucosal thickening in the ethmoid sinuse s. The mastoid air cells are normal. IMPRESSION: 1. Old infarcts in the right parietal lobe and left internal capsule. 2. Mild nonspecific cerebral white matter disease, which likely represents chronic small vessel ische nell disease. Reviewed, dictated and finalized at location A. IMPRESSION: 1. Old infarcts in the right parietal lobe and left internal capsule. 2. Mild nonspecific cerebral white matter disease, which likely represents washer machine bhaskar small vessel ischemic disease.
--- NOTE | ~2020-01-09 | XR_ITS ---
EXAMINATION: XR chest 1V portable DATE: 01/09/2020 21:57 INDICATION: Transient alteration of awareness. TECHNIQUE: A single frontal view of the chest was obtained. COMPARISON: Chest single view 12/09/2019, CT abdomen and pelvis 12/09/2019 FINDINGS: There is elevation of right hemidiaphragm. There is mild atelectasis in the mid and lower l syed zones. No pleural effusion or pneumothorax. Cardiomegaly is noted. There is a prominent left para cardial fat pad. A right internal jugular central venous catheter is seen with tip in the right atriu m. IMPRESSION: 1. Mild atelectasis in the mid and lower lung zones. 2. Persistent elevation of right hemidiaphragm. 3. Cardiomegaly. Reviewed, dictated and finalized at location A.
--- NOTE | 2020-01-09 18:56 | ECG_ITS ---
Measurements Intervals [place] Rate: 51 P: 37 [place]: 204 QRS: -26 QRSD: 102 T: 102 QT: 456 QTc: 421 Interpretive Statements SINUS BRADYCARDIA BORDERLINE AV CONDUCTION DELAY LOW QRS VOLTAGE IN PRECORDIAL LEADS CANNOT RULE OUT SEPTAL INFARCT, AGE INDETERMINATE BORDERLINE ST-T WAVE ABNORMALITY- ANTEROLAT/HIGH LAT LEADS ABNORMAL ECG Electronically Signed On 01-09-2020 20:07:49 CDT by Jered Vee D.O.
--- NOTE | 2020-01-09 20:26 | ED.GENADULT ---
HPI - General Adult General Chief complaint: Altered Mental Status Stated complaint: Altered mental status Time Seen by Provider: 01/09/20 18:19 Source: family and EMS Mode of arrival: EMS Limitations: clinical condition History of Present Illness HPI narrative: 69-year-old with a history of ESRD on hemodialysis, C. difficile colitis, A. fib on amiodarone,, was sent from skilled nursing with complaints of decreased level of alertness since this morning. As per the son who is at the bedside did not have dialysis yesterday. No history of fever, nausea or vomiting. Onset (ago): day(s) (1) Severity: moderate Related Data Home Medications Medication Instructions Recorded Confirmed simvastatin 40 mg PO HS 09/27/19 01/09/20 alprazolam 0.5 mg PO HS PRN 10/20/19 01/09/20 amiodarone [Pacerone] 200 mg PO DAILY 12/09/19 01/09/20 [id number] pr con 1 cap PO BID 12/09/19 01/09/20 nitroglycerin [Nitrostat] 0.4 mg SUBLINGUAL Q5-15M PRN 12/09/19 01/09/20 Allergies Allergy/AdvReac Type Severity Reaction Status Date / Time clindamycin Allergy Unknown Unknown Verified 01/09/20 18:55 Penicillins Allergy Unknown Hives,Skin Verified 01/09/20 18:55 irritation Sulfa (Sulfonamide Allergy Unknown Hives,Skin Verified 01/09/20 18:55 Antibiotics) irritation Review of Systems Review of Systems: ROS unobtainable: Yes unobtainable due to mental status PMFSH Past Medical History Medical History Anxiety Atrial fibrillation New onset September 2019 C. difficile colitis Chronic anemia Chronic respiratory failure with hypoxia and hypercapnia On chronic home O2 of 2 L Chronic stasis dermatitis Cirrhosis With mild splenomegaly noted on CT of the abdomen and pelvis 09/27/2019. CVA (cerebral vascular accident) Right frontal parietal in 2011, with left side weakness. Diastolic CHF DVT (deep venous thrombosis) Left calf September 2019 End-stage renal disease on hemodialysis History of Clostridium difficile colitis Most recently hospitalized for C diff colitis September 2019 Hyperlipidemia Hypertension Metabolic acidosis Osteoarthritis Seasonal allergies Severe pulmonary arterial systolic hypertension Recent echocardiogram demonstrated ejection fraction of 65 to 70% in addition to diastolic dysfunction. Splenic infarction Noted on CT from September 2019 Suspected sleep apnea For awaiting formal outpatient polysomnogram. Seen by pulmonology during previous visit, recommending BiPAP at nighttime, / with a rate of 14 FiO2 of 40. . Type 2 diabetes mellitus With peripheral neuropathy. Recent hemoglobin A1c was 6.1%. Surgical History Surgical History History of arthroscopy of right knee History of tubal ligation History of umbilical hernia repair With CT demonstrating recurrence of fat containing umbilical hernia Social History Social History Social History: Mrs. Alcantara is . She is now currently residing at [facility]. She has 2 sons and 1 daughter. 1 daughter is unfortunately due to breast cancer. She designates her son Bowen as her surrogate decision maker. She remains a full code. She smoked remotely for short period of time. No alcohol or drug use. Smoking packs per day: 0.5 Smoking cigarettes per day: 10.0 Years smoked: 4 Smoking pack-years: 2.00 Smoking status: Former smoker Tobacco type: cigarettes Second hand tobacco smoke exposure: No Alcohol intake: former Substance use: never Gender identity (if verbalized by the patient): Female Spiritual care concerns: No Agree to blood products: Yes Exam Const: General: ill appearing Nutritional Appearance: obese Limitations: altered mental status HENMT: Head: normal to inspection Eyes: Other: Has forcefully open eye lids but pupils are reactive Neck: Ne
[2020-01-09 20:32] LABS: Basophils Absolute Auto 0.1 K/mm3 (0.0-0.1); Basophils Percent Auto 0.5 % (0.2-1.2); Eosinophils Percent Auto 0.2 % (0-4.4); Hemoglobin 13.3 g/dL (12.0-15.0); Immature Granulocyte Absolute 0.09 K/mm3 (0.00-0.031); Immature Granulocyte Percent A 0.8 % (0-0.5); Lymphocytes Absolute Auto 2.68 K/mm3 (0.9-3.2); Mean Corpuscular HGB Conc 31.7 g/dl (32-36); Mean Corpuscular Hemoglobin 30.1 pg (26-34); Mean Platelet Volume 9.5 fl (7.4-10.4); Monocytes Absolute Auto 0.8 K/mm3 (0.1-0.6); Monocytes Percent Auto 7.5 % (2.6-8.5); Neutrophils Absolute Auto 7.5 K/mm3 (1.3-6.7); Platelet Count Result 194 k/mm3 (150-375); Red Blood Count 4.42 M/mm3 (4.2-5.4); Red Cell Distribution Width 14.5 % (11.5-14.5); White Blood Count 11.2 K/mm3 (4.5-10.0)
[2020-01-09 20:42] LABS: Lactic Acid Reflex 1.1 mmol/L (0.7-2.1)
[2020-01-09 20:43] LABS: Alanine Aminotransferase 9 U/L (4-35); Alkaline Phosphatase 78 U/L (38-126); Aspartate Amino Transferase 16 U/L (14-36); Bilirubin,Total 0.8 mg/dL (0.2-1.3); Blood Urea Nitrogen 48 mg/dL (7-17); Calcium 8.4 mg/dL (8.4-10.2); Carbon Dioxide 26 mmol/L (22-30); Chloride 98 mmol/L (98-107); Estimated CRCL calculation 9 ml/min; Estimated Glomerular Filt Rate 6; Glucose 105 mg/dL (65-105); Potassium 3.2 mmol/L (3.4-5.0); Sodium 135 mmol/L (137-145)
[2020-01-09 21:53] LABS: Alveolar/Arterial O2 Gradient 84.2 mmHg; Base Excess ABG -0.2 mEq/l (+/-2.0); Carboxyhemoglobin 0.1 % THb (0-2.0); Fractional Inspired Oxygen 32 %; HCO3 ABG 24.7 mEq/l (22.0-26.0); Methemoglobin ABG 0.1 %THb (0-1.5); Oxygen Content ABG 16.1 %vol (16.0-22.0); Oxygen Saturation ABG 97.3 % (95.0-100.0); Oxyhemoglobin 96.2 % THb (90.0-100.0); PCO2 ABG 41.1 mmHg (35.0-45.0); PO2 ABG 95.9 mmHg (80.0-100.0); Reduced Hemoglobin 3.6 %THb (0-5.0); Total Hemoglobin 11.8 g/dL (12.0-18.0); pH ABG 7.396 (7.350-7.450)
[2020-01-09 21:54] LABS: Device NASAL CANNULA; Modified Allen's Test Pass; Site Drawn LEFT RADIAL
--- NOTE | 2020-01-09 21:56 | PM.IMHP ---
H&P: HPI History of Present Illness Chief complaint: AMS, ESRD w/ volume overload Narrative: This is a 69 year old morbidly obese female with ESRD on dialysis who is anticoagulated on Eliquis secondary to Atrial fibrillation and currently being treated for c. diff colitis presented to the hospital from the longterm secondary to acute altered mental status today. The patient did not go to dialysis yesterday and her son who is at the bedside states that he got a call today from the longterm telling him they were sending her to the hospital for evaluation due to decreased level of alertness since this morning. On my arrival to bedside the patient has shallow, slow breathing and is comatose. She does not respond to painful stimuli. CT brain was obtained and was unremarkable. Routine labs were obtained in the ER demonstrated a mildly elevated troponin. The son denies any other symptoms although he tells me that he hasn't been able to visit his mother in the longterm because it has been locked down due to COVID. ABG is currently pending. Review of Systems Review of Systems: ROS unobtainable: Yes unobtainable due to medical condition and unobtainable due to mental status PMFSH Past Medical History Medical History Anxiety Atrial fibrillation New onset September 2019 C. difficile colitis Chronic anemia Chronic respiratory failure with hypoxia and hypercapnia On chronic home O2 of 2 L Chronic stasis dermatitis Cirrhosis With mild splenomegaly noted on CT of the abdomen and pelvis 09/27/2019. CVA (cerebral vascular accident) Right frontal parietal in 2011, with left side weakness. Diastolic CHF DVT (deep venous thrombosis) Left calf September 2019 End-stage renal disease on hemodialysis History of Clostridium difficile colitis Most recently hospitalized for C diff colitis September 2019 Hyperlipidemia Hypertension Metabolic acidosis Osteoarthritis Seasonal allergies Severe pulmonary arterial systolic hypertension Recent echocardiogram demonstrated ejection fraction of 65 to 70% in addition to diastolic dysfunction. Splenic infarction Noted on CT from September 2019 Suspected sleep apnea For awaiting formal outpatient polysomnogram. Seen by pulmonology during previous visit, recommending BiPAP at nighttime, 14/5 with a rate of 14 FiO2 of 40. . Type 2 diabetes mellitus With peripheral neuropathy. Recent hemoglobin A1c was 6.1%. Surgical History Surgical History History of arthroscopy of right knee History of tubal ligation History of umbilical hernia repair With CT demonstrating recurrence of fat containing umbilical hernia Family History Family History Father , 76 Family history of cardiovascular disease Acute myocardial infarction Mother Hypertension Alzheimer's dementia Sibling Hypertension Sibling Hypertension Daughter Breast cancer Social History Social History Social History: Mrs. Alcantara is . She is now currently residing at [facility]. She has 2 sons and 1 daughter. 1 daughter is unfortunately due to breast cancer. She designates her son Bowen as her surrogate decision maker. She remains a full code. She smoked remotely for short period of time. No alcohol or drug use. Smoking packs per day: 0.5 Smoking cigarettes per day: 10.0 Years smoked: 4 Smoking pack-years: 2.00 Smoking status: Former smoker Tobacco type: cigarettes Second hand tobacco smoke exposure: No Alcohol intake: never Substance use: never Gender identity (if verbalized by the patient): Female Spiritual care concerns: No Agree to blood products: Yes Meds Home Medications and Allergies Home Medications Medication Instructions Recorde
[2020-01-09 23:18] LABS: Ammonia < 9 umol/L (9-30); Phosphorus 5.3 mg/dL (2.5-4.5)
[2020-01-10] VITALS (29 sets, daily range): BP systolic 120–174; BP diastolic 59–88; PULSE 60–86; RESP 20–24; TEMP 36.3–37.3; O2SAT 95–100; BMI 30.8
[2020-01-10 00:13] LABS: Glucose Point of Care 112 (65-105)
[2020-01-10] MEDS: TOLNAFTATE 1% POWDER 45 GM BTL 1 APPLIC TOPICAL ×2 (00:25→12:03)
[2020-01-10] MEDS: SALINE 0.65% NAS SOLN 44 ML BTL 1 SPRAY NASAL (00:25)
[2020-01-10 00:30] LABS: Folic Acid 7.9 ng/mL (2.76->20)
[2020-01-10 06:19] LABS: Add Urine Microscopic? YES; Appearance Urine Turbid (Clear); Bacteria Urine Trace /hpf; Bilirubin Urine Negative (Negative); Blood Urine 1+ (Negative); Color Urine Yellow (Yellow); Glucose Urine UA Negative (Negative); Ketones Urine Negative (Negative); Leukocyte Esterase Ur 1+ LEU/UL (NEGATIVE); Nitrate Urine Negative (Negative); Protein Urine 2+ mg/dL (Negative); RBC Urine >75 /hpf (0-2); Specific Grav Ur 1.017 (1.001-1.035); Urobilinogen Urine Negative mg/dL (<2.0); WBC Urine >75 /hpf (0-3)
[2020-01-10 06:48] LABS: Amphetamine Screen Urine Negative (Negative); Barbiturate Screen Urine Negative (Negative); Benzodiazepines Screen Urine Positive (Negative); Cannabinoid Screen Urine Negative (Negative); Cocaine Screen Urine Negative (Negative); Methadone Screen Urine Negative (Negative); Opiate Screen Urine Negative (Negative); Phencyclidine Screen Urine Negative (Negative)
[2020-01-10 07:36] LABS: Basophils Absolute Auto 0.1 K/mm3 (0.0-0.1); Basophils Percent Auto 0.6 % (0.2-1.2); Eosinophils Percent Auto 0.4 % (0-4.4); Hematocrit 40.8 % (37.0-47.0); Hemoglobin 12.9 g/dL (12.0-15.0); Immature Granulocyte Absolute 0.09 K/mm3 (0.00-0.031); Immature Granulocyte Percent A 0.9 % (0-0.5); Lymphocytes Absolute Auto 2.48 K/mm3 (0.9-3.2); Lymphocytes Percent Auto 25.4 % (18.3-44.2); Mean Corpuscular HGB Conc 31.6 g/dl (32-36); Mean Corpuscular Hemoglobin 29.7 pg (26-34); Mean Corpuscular Volume 93.8 fl (80-100); Mean Platelet Volume 9.6 fl (7.4-10.4); Monocytes Absolute Auto 0.7 K/mm3 (0.1-0.6); Monocytes Percent Auto 7.6 % (2.6-8.5); Neutrophils Absolute Auto 6.4 K/mm3 (1.3-6.7); Neutrophils Percent Auto 65.1 % (45.5-73.1); Platelet Count Result 193 k/mm3 (150-375); Red Blood Count 4.35 M/mm3 (4.2-5.4); Red Cell Distribution Width 14.2 % (11.5-14.5); White Blood Count 9.8 K/mm3 (4.5-10.0)
[2020-01-10 07:47] LABS: Blood Urea Nitrogen 52 mg/dL (7-17); Calcium 8.2 mg/dL (8.4-10.2); Carbon Dioxide 26 mmol/L (22-30); Chloride 99 mmol/L (98-107); Estimated CRCL calculation 7 ml/min; Estimated Glomerular Filt Rate 6; Glucose 97 mg/dL (65-105); Potassium 3.2 mmol/L (3.4-5.0); Sodium 137 mmol/L (137-145)
[2020-01-10 09:11] LABS: Glucose Point of Care 93 (65-105)
[2020-01-10 13:13] LABS: Glucose Point of Care 82 (65-105)
--- NOTE | 2020-01-10 15:16 | PM.IMPN ---
Progress Note: A&P Assessment and Plan (1) Acute encephalopathy: Code(s): G93.40 - Encephalopathy, unspecified Status: Acute Assessment and Plan: r/o Hypercapnic encephalopathy, Metabolic encephalopathy from ESRD, pt needs dialysis soon (2) Elevated troponin: Code(s): R79.89 - Other specified abnormal findings of blood chemistry Status: Acute Assessment and Plan: Acute troponin leak is likely secondary to ESRD. (3) Hypokalemia: Code(s): E87.6 - Hypokalemia Status: Acute Assessment and Plan: KCL replacement. Monitor serum potassium. (4) ESRD (end stage renal disease) on dialysis: Code(s): N18.6 - End stage renal disease; Z99.2 - Dependence on renal dialysis Status: Chronic Assessment and Plan: Nephrology has been consulted by ER provider. The patient missed dialysis yesterday and will benefit from dialysis tomorrow. (5) Atrial fibrillation: Qualifiers: Atrial fibrillation type: unspecified Qualified Code(s): I48.91 - Unspecified atrial fibrillation Code(s): I48.91 - Unspecified atrial fibrillation Status: Chronic Assessment and Plan: Resume amiodarone and Eliquis when possible. (6) C. difficile colitis: Code(s): A04.72 - Enterocolitis due to Clostridium difficile, not specified as recurrent Status: Chronic Assessment and Plan: Continue Oral Vancomycin when possible to finish month of antibiotics. Subjective Date/time seen: 01/10/20 15:16 Interval history: 69 year old morbidly obese female with ESRD on dialysis who is anticoagulated on Eliquis secondary to Atrial fibrillation and currently being treated for c. diff colitis presented [facility] the [facility] [place] [facility] secondary to acute altered mental status today. Pt states [place] Review of Systems Review of Systems: ROS unobtainable: Yes unobtainable due to medical condition (repetitive yes and no unsure about her baseline ) Exam Narrative: Exam Narrative: chronically ill repetitive yes no Chest: Other: Right upper chest dialysis catheter in place++ Resp: Effort & Inspection: other (Shallow, slow breathing+) Auscultation: clear to auscultation bilaterally Cardio: Rate: regular rate Rhythm: regular rhythm Heart sounds: no murmurs GI: Inspection: normal to inspection Auscultation: normal bowel sounds Skin: General skin exam: normal color and no rashes or lesions noted Extrem: General: normal to inspection and edema bilateral Objective Data Vital Signs Vital Signs: Vital Signs - 24 hr 01/09/20 18:37 01/09/20 19:39 01/09/20 20:58 Temperature 36.8 C 37.1 C Pulse Rate 54 L 52 L 56 L Respiratory Rate 29 H 26 H 21 H Blood Pressure 156/70 H 161/58 H 165/60 H Pulse Oximetry 100 96 98 01/09/20 21:10 01/09/20 21:44 01/09/20 21:57 Temperature Pulse Rate 49 L 50 L 56 L Respiratory Rate 15 16 15 Blood Pressure 100/50 L 91/52 L 105/57 L Pulse Oximetry 100 100 99 01/09/20 22:06 01/09/20 22:37 01/10/20 00:00 Temperature 36.1 C L 36.3 C L Pulse Rate 54 L 65 68 Respiratory Rate 16 20 20 Blood Pressure 157/67 H 134/73 170/88 H Pulse Oximetry 100 100 100 01/10/20 04:00 01/10/20 06:00 01/10/20 08:00 Temperature 36.3 C L 37.3 C Pulse Rate 69 60 67 Respiratory Rate 20 20 Blood Pressure 169/73 H 146/82 H Pulse Oximetry 100 100 01/10/20 08:52 01/10/20 11:57 Temperature Pulse Rate 86 Respiratory Rate Blood Pressure 152/75 H Pulse Oximetry 99 95 Meds/Results Medications: Active Medications Generic Name Dose Route Start Last Admin Trade Name Freq PRN Reason Stop Dose Admin Artificial Tears 1 drop 01/09/20 22:24 Artificial Tears EACH EYE QID PRN Dry Eye(S) Dextrose 12.5 gm 01/09/20 22:19 Dextrose 50% Syringe IV PUSH PRN PRN Hypoglycemia Protocol Glucagon 1 mg 01/09/20 22:19 Glucagon For In
[2020-01-10] MEDS: HEPARIN SODIUM 1,000 UNITS/ML VIAL 1000 UNITS IV PUSH ×2 (16:15→19:51)
[2020-01-10] MEDS: HEPARIN SODIUM 1,000 UNITS/ML VIAL 500 UNITS IV PUSH ×4 (16:18→19:18)
--- NOTE | 2020-01-10 16:27 | PM.PNNEP ---
Progress Note: A&P Assessment and Plan (1) End stage renal disease: Code(s): N18.6 - End stage renal disease Status: Chronic (2) Altered mental status: Code(s): R41.82 - Altered mental status, unspecified Status: Acute (3) Hypokalemia: Code(s): E87.6 - Hypokalemia Status: Acute (4) UTI (urinary tract infection): Qualifiers: Encounter type: initial encounter Indwelling urinary catheter type: unspecified Urinary tract infection type: catheter-associated UTI Qualified Code(s): T83.511A - Infection and inflammatory reaction due to indwelling urethral catheter, initial encounter; N39.0 - Urinary tract infection, site not specified Code(s): N39.0 - Urinary tract infection, site not specified Status: Acute (5) Atrial fibrillation: Qualifiers: Atrial fibrillation type: unspecified Qualified Code(s): I48.91 - Unspecified atrial fibrillation Code(s): I48.91 - Unspecified atrial fibrillation Status: Acute (6) Hypertension: Qualifiers: Hypertension type: essential hypertension Qualified Code(s): I10 - Essential (primary) hypertension Code(s): I10 - Essential (primary) hypertension Status: Acute (7) Hyperlipidemia: Code(s): E78.5 - Hyperlipidemia, unspecified Status: Acute Additional Plan HD treatment today and continue M/W/F schedule at this time FULL CONSULT TO FOLLOW Subjective Date/time seen: 01/10/20 16:27 Tolerating dialysis treatment at the time of my visit (seen on HD at 4:20PM); awake but appears quite confused; no apparent/acute distress noted otherwise. Exam Narrative: Exam Narrative: General: WD/WN female in NAD Heart: normal S1 and S2; no rub Lungs: clear to auscultation Abdomen: soft, mild TTP, nondistended, positive bowel sounds Extremities: no cyanosis or clubbing; no edema Skin: warm and dry Objective Data Vital Signs Vital Signs: Vital Signs Temp Pulse Resp BP Pulse Ox 01/10/20 16:18 69 154/70 H 01/10/20 16:05 36.4 C 66 24 H 174/73 H 01/10/20 12:00 20 01/10/20 11:57 86 152/75 H 95 01/10/20 08:52 99 01/10/20 08:00 37.3 C 67 20 146/82 H 100 01/10/20 06:00 60 01/10/20 04:00 36.3 C L 69 20 169/73 H 100 01/10/20 00:00 36.3 C L 68 20 170/88 H 100 01/09/20 22:37 36.1 C L 65 20 134/73 100 01/09/20 22:06 54 L 16 157/67 H 100 01/09/20 21:57 56 L 15 105/57 L 99 01/09/20 21:44 50 L 16 91/52 L 100 01/09/20 21:10 49 L 15 100/50 L 100 01/09/20 20:58 37.1 C 56 L 21 H 165/60 H 98 01/09/20 19:39 52 L 26 H 161/58 H 96 01/09/20 18:37 36.8 C 54 L 29 H 156/70 H 100 Meds/Results Medications: Active Medications Generic Name Dose Route Start Last Admin Trade Name Freq PRN Reason Stop Dose Admin Acetaminophen 650 mg 01/10/20 15:20 Tylenol Tablet PO Q4H PRN Mild Pain (1-5) Or Fever Albuterol 5 mg 01/10/20 15:20 Albuterol Sulf Neb 2.5mg/0.5ml INHALATION Q6HRT PRN Shortness Of Breath Or Wheezing Alprazolam 0.5 mg 01/10/20 21:00 Xanax PO HS DEJON Alprazolam 0.5 mg 01/10/20 18:00 Xanax PO 0600,1200,1800 DEJON Artificial Tears 1 drop 01/09/20 22:24 Artificial Tears EACH EYE QID PRN Dry Eye(S) Artificial Tears 1 drop 01/10/20 15:29 Artificial Tears EACH EYE Q6H PRN Dry Eye(s) Cholestyramine Resin 4 gm 01/10/20 17:00 Questran Light Packet PO BID DEJON Dextrose 12.5 gm 01/09/20 22:19 Dextrose 50% Syringe IV PUSH PRN PRN Hypoglycemia Protocol Epoetin Cameron 10,000 units 01/13/20 10:00 Epogen IV PUSH MoWeFr@1000 DEJON Famotidine 20 mg 01/10/20 21:00 Pepcid PO Q12HR DEJON Fidaxomicin 200 mg 01/10/20 21:00 Dificid PO Q12HR DEJON Glucagon 1 mg 01/09/20 22:19 Glucagon For Inj IM PRN PRN Hypo
--- NOTE | 2020-01-10 16:57 | WPDNEURCNPN ---
Assessment and Plan Assessment and plan (1) Hypokalemia: Code(s): E87.6 - Hypokalemia Status: Acute (2) Elevated troponin: Code(s): R79.89 - Other specified abnormal findings of blood chemistry Status: Acute (3) Acute encephalopathy: Code(s): G93.40 - Encephalopathy, unspecified Status: Acute (4) Altered mental status: Code(s): R41.82 - Altered mental status, unspecified Status: Acute (5) Septic shock: Code(s): A41.9 - Sepsis, unspecified organism; R65.21 - Severe sepsis with septic shock Status: Acute (6) Atrial fibrillation: Qualifiers: Atrial fibrillation type: unspecified Qualified Code(s): I48.91 - Unspecified atrial fibrillation Code(s): I48.91 - Unspecified atrial fibrillation Status: Chronic (7) Metabolic acidosis: Code(s): E87.2 - Acidosis Status: Acute (8) Decubitus ulcer: Qualifiers: Pressure injury location: heel Pressure injury stage: pressure injury of deep tissue Laterality: unspecified laterality Qualified Code(s): L89.606 - Pressure-induced deep tissue damage of unspecified heel Code(s): L89.90 - Pressure ulcer of unspecified site, unspecified stage Status: Acute (9) Hypotension: Qualifiers: Hypotension type: unspecified hypotension type Qualified Code(s): I95.9 - Hypotension, unspecified Code(s): I95.9 - Hypotension, unspecified Status: Acute (10) UTI (urinary tract infection): Qualifiers: Encounter type: initial encounter Indwelling urinary catheter type: unspecified Urinary tract infection type: catheter-associated UTI Qualified Code(s): T83.511A - Infection and inflammatory reaction due to indwelling urethral catheter, initial encounter; N39.0 - Urinary tract infection, site not specified Code(s): N39.0 - Urinary tract infection, site not specified Status: Acute (11) ESRD (end stage renal disease) on dialysis: Code(s): N18.6 - End stage renal disease; Z99.2 - Dependence on renal dialysis Status: Chronic (12) Atrial fibrillation: Qualifiers: Atrial fibrillation type: unspecified Qualified Code(s): I48.91 - Unspecified atrial fibrillation Code(s): I48.91 - Unspecified atrial fibrillation Status: Acute (13) C. difficile colitis: Code(s): A04.72 - Enterocolitis due to Clostridium difficile, not specified as recurrent Status: Chronic (14) DVT (deep venous thrombosis): Qualifiers: DVT location: lower extremity Affected thrombotic vein of extremity: calf muscle vein Chronicity: acute Laterality: left Qualified Code(s): I82.462 - Acute embolism and thrombosis of left calf muscular vein Code(s): I82.409 - Acute embolism and thrombosis of unspecified deep veins of unspecified lower extremity Status: Acute (15) Dependence on renal dialysis: Code(s): Z99.2 - Dependence on renal dialysis Status: Acute (16) Cirrhosis: Qualifiers: Hepatic cirrhosis type: unspecified hepatic cirrhosis Ascites presence: unspecified Qualified Code(s): K74.60 - Unspecified cirrhosis of liver Code(s): K74.60 - Unspecified cirrhosis of liver Status: Acute Additional Plan based on what I see in the records the patient does have evidence of the previous strokes and probably has urinary tract infection superimposed which she has had in the past however she does not improve a brain MRI will be in order to see whether not she has new evidence of stroke the prognosis for the overall recovery from the present status is really guarded at this time the present management needs to be continued Consult date: 01/10/20 Time Seen: 16:30 HPI: Aurelia Alcantara is a 69 year old female who is quite encephalopathic and just saying [facility] does non to be in any distress she was examined in the dialysis unit and I spoke with the attending dialysis nu
[2020-01-10 17:36] LABS: Glucose Point of Care 98 (65-105)
[2020-01-10 20:37] LABS: Glucose Point of Care 84 (65-105)
[2020-01-11] VITALS (14 sets, daily range): BP systolic 124–167; BP diastolic 58–83; PULSE 59–77; RESP 12–20; TEMP 36.2–37.5; O2SAT 96–100
[2020-01-11 00:47] LABS: Glucose Point of Care 95 (65-105)
--- NOTE | 2020-01-11 01:53 | PC.NURSE ---
RETURNED FROM DIALYSIS ON 01/10/20 AT 2000 VIA BED, TOLERATED WELL. 500CC FLUID REMOVED.
--- NOTE | 2020-01-11 01:54 | PC.NURSE ---
01/10/20 AT 2100. Patient refusing to take medications or sips of water. Juana Myers notified.
--- NOTE | 2020-01-11 01:55 | PC.NURSE ---
01/11/20 at 0030. Patient still refusing all medications or sips of water.
[2020-01-11 04:18] LABS: Glucose Point of Care 87 (65-105)
[2020-01-11] MEDS: TOLNAFTATE 1% POWDER 45 GM BTL 1 APPLIC TOPICAL ×3 (06:48→20:48)
[2020-01-11] MEDS: EUCERIN CREAM 120 GM JAR 1 APPLIC TOPICAL (09:33)
[2020-01-11 09:56] LABS: Glucose Point of Care 82 (65-105)
--- NOTE | 2020-01-11 11:45 | PM.CNNEP ---
Assessment and Plan Assessment and plan (1) End stage renal disease: Code(s): N18.6 - End stage renal disease Status: Chronic (2) Altered mental status: Code(s): R41.82 - Altered mental status, unspecified Status: Acute (3) Hypokalemia: Code(s): E87.6 - Hypokalemia Status: Acute (4) UTI (urinary tract infection): Qualifiers: Encounter type: initial encounter Indwelling urinary catheter type: unspecified Urinary tract infection type: catheter-associated UTI Qualified Code(s): T83.511A - Infection and inflammatory reaction due to indwelling urethral catheter, initial encounter; N39.0 - Urinary tract infection, site not specified Code(s): N39.0 - Urinary tract infection, site not specified Status: Acute (5) Atrial fibrillation: Qualifiers: Atrial fibrillation type: unspecified Qualified Code(s): I48.91 - Unspecified atrial fibrillation Code(s): I48.91 - Unspecified atrial fibrillation Status: Acute (6) Hypertension: Qualifiers: Hypertension type: essential hypertension Qualified Code(s): I10 - Essential (primary) hypertension Code(s): I10 - Essential (primary) hypertension Status: Acute (7) Hyperlipidemia: Code(s): E78.5 - Hyperlipidemia, unspecified Status: Acute Assessment and Plan: . Additional Plan Aurelia has end-stage renal disease. She received dialysis yesterday in effort to maintain stability in her electrolytes, volume status, and clearance although her volume status actually appears to be relatively stable possibly due to the fact that she has been having diarrhea with the presumed C diff colitis diagnosis as well as limited oral intake possibly complicated by issues relating to nausea and vomiting from I was not told. I am unclear as to the etiology of her acute encephalopathy however in the past, infection is usually been the culprit what comes to changes in her mental status. Her urinalysis was suggestive of urinary tract infection but her urine cultures is negative and she does have the aforementioned/suspected C diff colitis and is on antibiotic therapy for this. One set of her blood cultures are growing gram-positive cocci but the other 1 is not so I am unclear if this is a real infection or contamination. She is somewhat higher risk for infection given her end-stage renal disease status as well as the fact that she has a tunneled dialysis catheter although in the past, urinary tract infections and C diff colitis have been more to blame for her change in mentation. She is already on antibiotic therapy for her presumed C diff colitis and the question remains whether not we should initiate initiate more aggressive antibiotic therapy on the assumption of another infection and/or bacteremia. If her altered mental status is not related to infection, neurology is already been consulted and recommends an MRI of her brain if her in her mentation does not return to baseline fairly soon. I will continue follow the patient with you while she remains hospitalized and make further recommendations during her hospital course Thank you for allowing me to participate in care this patient. History of Present Illness Reason for Consult Consult date: 01/11/20 Reason for consult: end stage renal disease Chief Complaint Chief complaint: AMS, ESRD w/ volume overload History of Present Illness Narrative: Most of the information I have obtained is from review of the electronic medical record as well as discussion with the physicians/nurses involved in the patient's care as she is unable to provide much history with regard to the events that led to her admission given her altered mental status. The patient is a 69 year old female with and extensive medical history as outlined below who presented yesterday to [facility] ER who presented from her long term secondary to altered mental status
[2020-01-11] MEDS: SALINE 0.65% NAS SOLN 44 ML BTL 1 SPRAY NASAL ×2 (12:50→18:30)
[2020-01-11] MEDS: FIDAXOMICIN 200 MG TABLET PO ×2 (12:50→20:47)
[2020-01-11] MEDS: METOPROLOL TARTRATE 25 MG TABLET PO ×2 (12:50→20:46)
[2020-01-11] MEDS: FAMOTIDINE 20 MG TABLET PO ×2 (12:50→20:46)
[2020-01-11] MEDS: MIDODRINE HCL 10 MG TABLET PO ×2 (12:50→18:30)
[2020-01-11] MEDS: ALPRAZolam 0.5 MG TABLET PO ×2 (12:50→20:47)
[2020-01-11] MEDS: MEGESTROL ACETATE (*CHEMO) ORAL SUSP 40 MG/ML SYR 800 MG PO (12:50)
[2020-01-11 13:17] LABS: Glucose Point of Care 85 (65-105)
--- NOTE | 2020-01-11 14:20 | PC.NURSE ---
This patient, Aurelia Alcantara, was transferred to [ [address] [place] [address]] on 01/11/20 at 1405. Personal belongings sent with patient, clothes. Belongings list checked and signed with receiving [ 3med]. Report given to [ximena rn ]. Appropriate documentation sent with patient.
--- NOTE | 2020-01-11 17:08 | PM.IMPN ---
Progress Note: A&P Assessment and Plan (1) Acute encephalopathy: Code(s): G93.40 - Encephalopathy, unspecified Status: Acute Assessment and Plan: r/o Hypercapnic encephalopathy, Metabolic encephalopathy from ESRD, pt needs dialysis soon creat is 7.2 (2) Elevated troponin: Code(s): R79.89 - Other specified abnormal findings of blood chemistry Status: Acute Assessment and Plan: Acute troponin leak is likely secondary to ESRD. (3) Hypokalemia: Code(s): E87.6 - Hypokalemia Status: Acute Assessment and Plan: KCL replacement. Monitor serum potassium. (4) ESRD (end stage renal disease) on dialysis: Code(s): N18.6 - End stage renal disease; Z99.2 - Dependence on renal dialysis Status: Chronic Assessment and Plan: Nephrology has been consulted by ER provider. The patient missed dialysis yesterday and will benefit from dialysis tomorrow. (5) Atrial fibrillation: Qualifiers: Atrial fibrillation type: unspecified Qualified Code(s): I48.91 - Unspecified atrial fibrillation Code(s): I48.91 - Unspecified atrial fibrillation Status: Chronic Assessment and Plan: Resume amiodarone and Eliquis when possible. (6) C. difficile colitis: Code(s): A04.72 - Enterocolitis due to Clostridium difficile, not specified as recurrent Status: Chronic Assessment and Plan: Continue Oral Vancomycin when possible to finish month of antibiotics. Additional Plan I will discuss with her family about considering hospice p t is refusing her medications and is not being compliant with dialysis and confusion and encephalopathy can worsen in this case Subjective Date/time seen: 01/11/20 17:08 Interval history: 69 year old morbidly obese female with ESRD on dialysis who is anticoagulated on Eliquis secondary to Atrial fibrillation and currently being treated for c. diff colitis [facility] to acute altered mental status today. Pt states [place] Pt appears more alert today. but is still confused and undecisive with her treatment plan, refuses her medications ? hospice pt will need to discuss with her family. Review of Systems Review of Systems: ROS unobtainable: Yes unobtainable due to medical condition Neurologic: Comments: Abnormal cognition Exam Narrative: Exam Narrative: chronically ill more conservational but tangential and emotional confused at times Chest: Other: Right upper chest dialysis catheter in place++ Cardio: Rate: regular rate Rhythm: regular rhythm Heart sounds: no murmurs GI: Inspection: normal to inspection Auscultation: normal bowel sounds Skin: General skin exam: normal color and no rashes or lesions noted Neuro: Cranial nerves: Yes Equal, round and reactive pupils present Extrem: General: normal to inspection and edema bilateral Objective Data Vital Signs Vital Signs: Vital Signs - 24 hr 01/10/20 17:15 01/10/20 17:30 01/10/20 17:45 Temperature Pulse Rate 78 70 71 Respiratory Rate Blood Pressure 150/68 H 130/81 135/70 Pulse Oximetry 01/10/20 18:00 01/10/20 18:15 01/10/20 18:30 Temperature Pulse Rate 73 67 70 Respiratory Rate Blood Pressure 155/83 H 144/79 H 130/69 Pulse Oximetry 01/10/20 18:45 01/10/20 19:00 01/10/20 19:15 Temperature Pulse Rate 77 73 75 Respiratory Rate Blood Pressure 126/63 137/59 L 128/70 Pulse Oximetry 01/10/20 19:30 01/10/20 19:45 01/10/20 19:48 Temperature Pulse Rate 71 72 75 Respiratory Rate Blood Pressure 120/59 L 131/66 133/79 Pulse Oximetry 01/10/20 19:50 01/10/20 20:00 01/10/20 22:00 Temperature 37.1 C 36.6 C Pulse Rate 72 74 75 Respiratory Rate 20 20 Blood Pressure 153/66 H 164/73 H Pulse Oximetry 99 01/11/20 00:00 01/11/20 01:58 01/11/20 02:00 Temperature 36.8 C Pulse Rate 74 75
[2020-01-11 18:20] LABS: Glucose Point of Care 83 (65-105)
--- NOTE | 2020-01-11 19:04 | PC.NURSE ---
1405 received transfer from IMU alert with belongings.
[2020-01-11] MEDS: SIMVASTATIN 20 MG TABLET 40 MG PO (20:47)
[2020-01-11 21:05] LABS: Glucose Point of Care 79 (65-105)
[2020-01-12] VITALS (8 sets, daily range): BP systolic 144–155; BP diastolic 68–80; PULSE 59–70; RESP 14–20; TEMP 36.2–36.3; O2SAT 94–100
[2020-01-12 04:32] LABS: Glucose Point of Care 75 (65-105)
--- NOTE | 2020-01-12 04:40 | PC.NURSE ---
Pt has been hallucinating about seeing spiders and spiders landing on her throughout shift. Pt was reassured that there were no spiders. will continue to monitor pt
[2020-01-12] MEDS: ALPRAZolam 0.5 MG TABLET PO ×4 (06:27→20:06)
[2020-01-12] MEDS: SALINE 0.65% NAS SOLN 44 ML BTL 1 SPRAY NASAL ×4 (06:27→23:44)
[2020-01-12 07:40] LABS: Blood Urea Nitrogen 27 mg/dL (7-17); Calcium 8.1 mg/dL (8.4-10.2); Carbon Dioxide 29 mmol/L (22-30); Chloride 101 mmol/L (98-107); Estimated CRCL calculation 12 ml/min; Estimated Glomerular Filt Rate 9; Glucose 78 mg/dL (65-105); Potassium 3.6 mmol/L (3.4-5.0); Sodium 136 mmol/L (137-145)
[2020-01-12 08:19] LABS: Glucose Point of Care 75 (65-105)
[2020-01-12] MEDS: METOPROLOL TARTRATE 25 MG TABLET PO ×2 (08:19→20:06)
[2020-01-12] MEDS: FIDAXOMICIN 200 MG TABLET PO ×2 (08:20→20:06)
[2020-01-12] MEDS: FAMOTIDINE 20 MG TABLET PO ×2 (08:20→20:06)
[2020-01-12] MEDS: MEGESTROL ACETATE (*CHEMO) ORAL SUSP 40 MG/ML SYR 800 MG PO (08:21)
[2020-01-12] MEDS: CHOLESTYRAMINE LIGHT 4 GM POWD.PACK PO ×2 (08:21→16:37)
[2020-01-12] MEDS: MIDODRINE HCL 10 MG TABLET PO ×3 (08:23→16:37)
[2020-01-12] MEDS: TOLNAFTATE 1% POWDER 45 GM BTL 1 APPLIC TOPICAL ×2 (09:50→20:07)
[2020-01-12] MEDS: POTASSIUM CHLORIDE 20 MEQ PACKET (FOR LIQUID) PO (09:51)
[2020-01-12] MEDS: EUCERIN CREAM 120 GM JAR 1 APPLIC TOPICAL (09:51)
--- NOTE | 2020-01-12 11:36 | PM.IMPN ---
Progress Note: A&P Assessment and Plan (1) Acute encephalopathy: Code(s): G93.40 - Encephalopathy, unspecified Status: Acute Assessment and Plan: r/o Hypercapnic encephalopathy, Metabolic encephalopathy from ESRD resolved. creat is down to 4.6 continue dialysis in hospital. (2) Elevated troponin: Code(s): R79.89 - Other specified abnormal findings of blood chemistry Status: Acute Assessment and Plan: Acute troponin leak is likely secondary to ESRD. (3) Hypokalemia: Code(s): E87.6 - Hypokalemia Status: Acute Assessment and Plan: KCL replacement. Monitor serum potassium. (4) ESRD (end stage renal disease) on dialysis: Code(s): N18.6 - End stage renal disease; Z99.2 - Dependence on renal dialysis Status: Chronic Assessment and Plan: Nephrology has been consulted by ER provider. The [place] (5) Atrial fibrillation: Qualifiers: Atrial fibrillation type: unspecified Qualified Code(s): I48.91 - Unspecified atrial fibrillation Code(s): I48.91 - Unspecified atrial fibrillation Status: Chronic Assessment and Plan: Resume amiodarone and Eliquis when possible. (6) C. difficile colitis: Code(s): A04.72 - Enterocolitis due to Clostridium difficile, not specified as recurrent Status: Chronic Assessment and Plan: Continue Oral Vancomycin when possible to finish month of antibiotics. Additional Plan Need to discuss with pts family if she should be changes to hospice as she refuses PD in [place] Otherwise continue care and Dc back to [place] monday or as pt appears improved Subjective Date/time seen: 01/12/20 11:36 Interval history: 69 year old morbidly obese female with ESRD on dialysis who is anticoagulated on Eliquis secondary to Atrial fibrillation and currently being treated for c. diff colitis presented [facility] secondary to acute altered mental status today. Pt states [place]. Pt appears more alert today. awaiting PD. Refuses her medications at times? hospice pt will need to discuss with her family. Review of Systems Review of Systems: All systems reviewed & are unremarkable except as noted in HPI and below ROS unobtainable: Yes other (alert responsive more oriented today ) Exam Narrative: Exam Narrative: Chronically ill more alert and oriented today Chest: Other: Right upper chest dialysis catheter in place++ Cardio: Rate: regular rate Rhythm: regular rhythm Heart sounds: no murmurs GI: Inspection: normal to inspection Auscultation: normal bowel sounds Skin: General skin exam: normal color and no rashes or lesions noted Neuro: Cranial nerves: Yes Equal, round and reactive pupils present Extrem: General: normal to inspection and edema bilateral Objective Data Vital Signs Vital Signs: Vital Signs - 24 hr 01/11/20 12:00 01/11/20 12:50 01/11/20 13:03 Temperature 37.3 C Pulse Rate 70 72 70 Respiratory Rate 20 Blood Pressure 154/79 H Pulse Oximetry 98 97 01/11/20 16:58 01/11/20 20:00 01/11/20 20:46 Temperature 36.8 C 36.4 C Pulse Rate 68 65 65 Respiratory Rate 14 16 Blood Pressure 136/58 L 156/64 H Pulse Oximetry 97 100 01/11/20 23:57 01/12/20 04:35 01/12/20 08:00 Temperature 36.2 C L 36.3 C L Pulse Rate 60 62 64 Respiratory Rate 12 14 18 Blood Pressure 130/72 144/68 H Pulse Oximetry 99 98 100 01/12/20 08:19 01/12/20 10:00 Temperature 36.3 C L Pulse Rate 67 64 Respiratory Rate 18 Blood Pressure 151/72 H Pulse Oximetry 100 Intake/Output Intake/Output: Intake & Output 01/09/20 01/10/20 01/11/20 01/12/20 23:59 23:59 23:59 23:59 Intake Total 100 450 Output Total 600 0 150 Balance -600 100 300 Meds/Results Medications: Active Medications Generic Name Dose Route Start Last Admin Trade Name Freq PRN Reason Stop Dose Admin A
[2020-01-12 11:45] LABS: Glucose Point of Care 77 (65-105)
--- NOTE | 2020-01-12 13:09 | WPDNEUROPN ---
Progress Note: A&P Assessment and Plan (1) End stage renal disease: Code(s): N18.6 - End stage renal disease Status: Chronic (2) Hypokalemia: Code(s): E87.6 - Hypokalemia Status: Acute (3) Elevated troponin: Code(s): R79.89 - Other specified abnormal findings of blood chemistry Status: Acute (4) Acute encephalopathy: Code(s): G93.40 - Encephalopathy, unspecified Status: Acute (5) Altered mental status: Code(s): R41.82 - Altered mental status, unspecified Status: Acute (6) Septic shock: Code(s): A41.9 - Sepsis, unspecified organism; R65.21 - Severe sepsis with septic shock Status: Acute (7) Atrial fibrillation: Qualifiers: Atrial fibrillation type: unspecified Qualified Code(s): I48.91 - Unspecified atrial fibrillation Code(s): I48.91 - Unspecified atrial fibrillation Status: Chronic (8) Metabolic acidosis: Code(s): E87.2 - Acidosis Status: Acute (9) Decubitus ulcer: Qualifiers: Pressure injury location: heel Pressure injury stage: pressure injury of deep tissue Laterality: unspecified laterality Qualified Code(s): L89.606 - Pressure-induced deep tissue damage of unspecified heel Code(s): L89.90 - Pressure ulcer of unspecified site, unspecified stage Status: Acute (10) Hypotension: Qualifiers: Hypotension type: unspecified hypotension type Qualified Code(s): I95.9 - Hypotension, unspecified Code(s): I95.9 - Hypotension, unspecified Status: Acute (11) UTI (urinary tract infection): Qualifiers: Encounter type: initial encounter Indwelling urinary catheter type: unspecified Urinary tract infection type: catheter-associated UTI Qualified Code(s): T83.511A - Infection and inflammatory reaction due to indwelling urethral catheter, initial encounter; N39.0 - Urinary tract infection, site not specified Code(s): N39.0 - Urinary tract infection, site not specified Status: Acute (12) ESRD (end stage renal disease) on dialysis: Code(s): N18.6 - End stage renal disease; Z99.2 - Dependence on renal dialysis Status: Chronic (13) Atrial fibrillation: Qualifiers: Atrial fibrillation type: unspecified Qualified Code(s): I48.91 - Unspecified atrial fibrillation Code(s): I48.91 - Unspecified atrial fibrillation Status: Acute (14) Acute on chronic respiratory failure with hypoxia and hypercapnia: Code(s): J96.21 - Acute and chronic respiratory failure with hypoxia; J96.22 - Acute and chronic respiratory failure with hypercapnia Status: Acute (15) C. difficile colitis: Code(s): A04.72 - Enterocolitis due to Clostridium difficile, not specified as recurrent Status: Chronic (16) Diastolic CHF: Qualifiers: Heart failure chronicity: chronic Qualified Code(s): I50.32 - Chronic diastolic (congestive) heart failure Code(s): I50.30 - Unspecified diastolic (congestive) heart failure Status: Acute (17) DVT (deep venous thrombosis): Qualifiers: DVT location: lower extremity Affected thrombotic vein of extremity: calf muscle vein Chronicity: acute Laterality: left Qualified Code(s): I82.462 - Acute embolism and thrombosis of left calf muscular vein Code(s): I82.409 - Acute embolism and thrombosis of unspecified deep veins of unspecified lower extremity Status: Acute (18) Dependence on renal dialysis: Code(s): Z99.2 - Dependence on renal dialysis Status: Acute (19) Cirrhosis: Qualifiers: Hepatic cirrhosis type: unspecified hepatic cirrhosis Ascites presence: unspecified Qualified Code(s): K74.60 - Unspecified cirrhosis of liver Code(s): K74.60 - Unspecified cirrhosis of liver Status: Acute (20) Hypotension: Code(s): I95.9 - Hypotension, unspecified Status: Acute (21) Atrial fibrilla
--- NOTE | 2020-01-12 14:33 | PM.PNNEP ---
Progress Note: A&P Assessment and Plan (1) End stage renal disease: Code(s): N18.6 - End stage renal disease Status: Chronic Assessment and Plan: HD tomorrow and continue M/W/ schedule initially was JESSICA on CKD stage IV -- however, she has been dialysis dependent for the last 3 months with no significant evidence of renal recovery (minimal UOP and creatinine running ~ 4.0 - 7.0ish range); hence, she is ESRD now follow electrolytes, volume status, and clearance (2) Altered mental status: Code(s): R41.82 - Altered mental status, unspecified Status: Acute Assessment and Plan: clinically improving due to resolving infection (UTI, C. diff colitis, ?bactremia) follow mentation (3) UTI (urinary tract infection): Qualifiers: Encounter type: initial encounter Indwelling urinary catheter type: unspecified Urinary tract infection type: catheter-associated UTI Qualified Code(s): T83.511A - Infection and inflammatory reaction due to indwelling urethral catheter, initial encounter; N39.0 - Urinary tract infection, site not specified Code(s): N39.0 - Urinary tract infection, site not specified Status: Acute Assessment and Plan: urinalysis was suggestive however, urine culture negative (4) Bacteremia: Code(s): R78.81 - Bacteremia Status: Acute Assessment and Plan: one out of 2 bottles with coag negative staph contamination? follow repeat cultures (5) C. difficile colitis: Code(s): A04.72 - Enterocolitis due to Clostridium difficile, not specified as recurrent Status: Chronic Assessment and Plan: on isolation on Questran and oral vancomycin (6) Hypertension: Qualifiers: Hypertension type: essential hypertension Qualified Code(s): I10 - Essential (primary) hypertension Code(s): I10 - Essential (primary) hypertension Status: Acute Assessment and Plan: fluctuates in general fluid removal as tolerated follow trend of hemodynamics I am worried that her quality of life has deteriorated in the last few months -- remains in nuring home with multiple admissions/hospitalization for a variety of issues -- consider palliative care consultation after discussion with family. Will continue to follow. Subjective Date/time seen: 01/12/20 14:33 Mentation has clearly improved -- more awake and talkative today in comparison to admission but still requires a great deal of stimulation to wake her up; no other issues or problems voiced. Exam Narrative: Exam Narrative: General: WD/WN female in NAD Heart: normal S1 and S2; no rub Lungs: clear to auscultation Abdomen: soft, nontender, nondistended, positive bowel sounds Extremities: no cyanosis or clubbing; no edema Skin: warm and dry Objective Data Vital Signs Vital Signs: Vital Signs Temp Pulse Resp BP Pulse Ox 01/12/20 14:00 36.3 C L 60 20 155/80 H 100 01/12/20 10:00 36.3 C L 64 18 151/72 H 100 01/12/20 08:19 67 01/12/20 08:00 64 18 100 01/12/20 04:35 36.3 C L 62 14 144/68 H 98 01/11/20 23:57 36.2 C L 60 12 130/72 99 01/11/20 20:46 65 01/11/20 20:00 36.4 C 65 16 156/64 H 100 01/11/20 16:58 36.8 C 68 14 136/58 L 97 Intake/Output Intake/Output: Intake & Output 01/09/20 01/10/20 01/11/20 01/12/20 23:59 23:59 23:59 23:59 Intake Total 100 990 Output Total 600 0 150 Balance -600 100 840 Meds/Results Medications: Active Medications Generic Name Dose Route Start Last Admin Trade Name Freq PRN Reason Stop Dose Admin Acetaminophen 650 mg 01/10/20 15:20 Tylenol Tablet PO Q4H PRN Mild Pain (1-5) Or Fever Albuterol 5 mg 01/10/20 15:20 Albuterol Sulf Neb 2.5mg/0.5ml INHALATION Q6HRT PRN Shortness Of Breath Or Wheezing Alprazolam 0.5 mg 01/10/20 21:00 01/11/20 20:47 Xanax PO 0.5 mg HS DEJON Administration Alprazo
[2020-01-12 17:02] LABS: Glucose Point of Care 68 (65-105)
[2020-01-12 17:02] LABS: Glucose Point of Care 75 (65-105)
[2020-01-12] MEDS: SIMVASTATIN 20 MG TABLET 40 MG PO (20:06)
[2020-01-12 21:05] LABS: Glucose Point of Care 85 (65-105)
[2020-01-12 23:54] LABS: Glucose Point of Care 77 (65-105)
[2020-01-13] VITALS (23 sets, daily range): BP systolic 95–174; BP diastolic 34–89; PULSE 52–100; RESP 14–22; TEMP 35.9–37; O2SAT 60–100
[2020-01-13] MEDS: SALINE 0.65% NAS SOLN 44 ML BTL 1 SPRAY NASAL ×3 (05:45→18:44)
[2020-01-13] MEDS: ALPRAZolam 0.5 MG TABLET PO ×4 (05:45→20:14)
[2020-01-13 05:55] LABS: Glucose Point of Care 75 (65-105)
[2020-01-13 07:51] LABS: Glucose Point of Care 67 (65-105)
--- NOTE | 2020-01-13 08:02 | PC.NURSE ---
Patient's blood sugar is 67 at this time. Monitoring that number while the patient eats her breakfast and will check again 5 minutes post breakfast. Hypoglycemic protocol will be initiated if blood sugar is below 70 5 minutes after the patient is finished with breakfast.
--- NOTE | 2020-01-13 08:17 | PC.NURSE ---
Patient ate some of her breakfast and blood glucose was rechecked. Blood glucose came to 104 at this time. Hypoglycemic protocol not needed at this time.
[2020-01-13] MEDS: FAMOTIDINE 20 MG TABLET PO ×2 (09:04→20:15)
[2020-01-13] MEDS: CHOLESTYRAMINE LIGHT 4 GM POWD.PACK PO ×2 (09:04→18:42)
[2020-01-13] MEDS: METOPROLOL TARTRATE 25 MG TABLET PO ×2 (09:05→20:14)
[2020-01-13] MEDS: MEGESTROL ACETATE (*CHEMO) ORAL SUSP 40 MG/ML SYR 800 MG PO (09:05)
[2020-01-13] MEDS: FIDAXOMICIN 200 MG TABLET PO ×2 (09:05→20:15)
[2020-01-13] MEDS: MIDODRINE HCL 10 MG TABLET PO ×3 (09:07→18:43)
[2020-01-13] MEDS: POTASSIUM CHLORIDE 20 MEQ PACKET (FOR LIQUID) PO (09:08)
[2020-01-13] MEDS: EUCERIN CREAM 120 GM JAR 1 APPLIC TOPICAL (09:08)
[2020-01-13] MEDS: TOLNAFTATE 1% POWDER 45 GM BTL 1 APPLIC TOPICAL ×2 (09:08→20:15)
[2020-01-13 09:25] LABS: Glucose Point of Care 104 (65-105)
[2020-01-13 11:13] LABS: Albumin Level 2.8 g/dL (3.5-5.1); Blood Urea Nitrogen 34 mg/dL (7-17); Calcium 7.8 mg/dL (8.4-10.2); Carbon Dioxide 26 mmol/L (22-30); Chloride 98 mmol/L (98-107); Estimated CRCL calculation 10 ml/min; Estimated Glomerular Filt Rate 8; Glucose 96 mg/dL (65-105); Phosphorus 5.1 mg/dL (2.5-4.5); Sodium 131 mmol/L (137-145)
--- NOTE | 2020-01-13 11:51 | PCNFU ---
Nutrition Follow-Up Complete: Inadequate oral intake related to altered mental status as evidenced by NPO order. Goal: Patient to meet estimated nutritional needs. We will continue current goal. Pt current nutrition is Clear Liquids. Nutrition recommendation: Agree Last recorded weight is 86.8 kg. Bowel Motility:+BM noted 01/12 Labs Reviewed:Cr 4.6,GFR 9,BUN 27,Cr 4.6, Na 136 Meds Noted:Vancomyacin,Lopressor. Additional Notes: Patient currently on a clear liquid diet, Oral Intake today for breakfast-soup, 2 bites of Jello and small amount of Ensure Clear. Patient is Cdiff positive with add Banatrol TID for liquid stools. Monitoring: Follow up in 3 days.
[2020-01-13 12:33] LABS: Glucose Point of Care 82 (65-105)
--- NOTE | 2020-01-13 14:17 | PC.NURSE ---
Patient to dialysis via bed at this time.
[2020-01-13 14:26] LABS: SARS-CoV-2 RNA PCR Negative
--- NOTE | 2020-01-13 14:43 | PM.IMPN ---
Progress Note: A&P Assessment and Plan (1) Acute encephalopathy: Code(s): G93.40 - Encephalopathy, unspecified Status: Acute Assessment and Plan: r/o Hypercapnic encephalopathy, Metabolic encephalopathy from ESRD, 69 year old morbidly obese female with ESRD on dialysis who is anticoagulated on Eliquis secondary to Atrial fibrillation and currently being treated for c. diff colitis presented to the hospital from the group home secondary to acute altered mental status. today patient states feeling better her bowel movements have improved, denies any nausea or vomiting, able to tolerate her diet, scheduled for hemodialysis today, however patient still is quite confused, patient's family is present in the room. (2) Elevated troponin: Code(s): R79.89 - Other specified abnormal findings of blood chemistry Status: Acute Assessment and Plan: Acute troponin leak is likely secondary to ESRD. Trend troponin. Monitor for chest pain. Telemetry. (3) Hypokalemia: Code(s): E87.6 - Hypokalemia Status: Acute Assessment and Plan: KCL replacement. Monitor serum potassium. (4) ESRD (end stage renal disease) on dialysis: Code(s): N18.6 - End stage renal disease; Z99.2 - Dependence on renal dialysis Status: Chronic Assessment and Plan: Nephrology has been consulted by ER provider. The patient missed dialysis yesterday and will benefit from dialysis tomorrow. (5) Atrial fibrillation: Qualifiers: Atrial fibrillation type: unspecified Qualified Code(s): I48.91 - Unspecified atrial fibrillation Code(s): I48.91 - Unspecified atrial fibrillation Status: Chronic Assessment and Plan: Currently in sinus bradycardia. Resume amiodarone and Eliquis when possible. (6) C. difficile colitis: Code(s): A04.72 - Enterocolitis due to Clostridium difficile, not specified as recurrent Status: Chronic Assessment and Plan: Continue Oral Vancomycin when possible to finish month of antibiotics. Subjective Date/time seen: 01/13/20 14:43 Interval history: 69 year old morbidly obese female with ESRD on dialysis who is anticoagulated on Eliquis secondary to Atrial fibrillation and currently being treated for c. diff colitis presented to the hospital from the group home secondary to acute altered mental status. today patient states feeling better her bowel movements have improved, denies any nausea or vomiting, able to tolerate her diet, scheduled for hemodialysis today, however patient still is quite confused, patient's family is present in the room. Review of Systems Review of Systems: ROS unobtainable: Yes unobtainable due to medical condition Exam Narrative: Exam Narrative: moderately obese Const: General: comfortable and no acute distress HENMT: General nose exam: Normal nares present Mouth: Yes moist mucous membranes Eyes: General: appearance normal, both eyes and all related structures Sclera: sclerae normal Neck: Neck: supple Resp: Effort & Inspection: normal respiratory effort Auscultation: clear to auscultation bilaterally Cardio: Rate: regular rate Rhythm: regular rhythm GI: Auscultation: normal bowel sounds Skin: General skin exam: normal color Neuro: Other: patient is confused Extrem: General: normal to inspection Psych: Affect: Anxious affect present Objective Data Vital Signs Vital Signs: Vital Signs - 24 hr 01/12/20 19:45 01/12/20 20:06 01/12/20 23:37 Temperature 97.1 F L Pulse Rate 59 L 70 Respiratory Rate 16 Blood Pressure 151/69 H Pulse Oximetry 100 94 01/13/20 05:32 01/13/20 08:00 01/13/20 09:05 Temperature 97 F L 96.6 F L Pulse Rate 100 52 L 60 Respiratory Rate 14 22 H Blood Pressure 154/77 H 148/80 H Pulse Oximetry 60 L 100 01/13/20 12:00 Temperature 96.9 F L Pulse Rate 59 L Respiratory Rate 20 Blood Pressure 153/89 H Pulse Oximetry 100
--- NOTE | 2020-01-13 16:48 | PM.PNNEP ---
Progress Note: A&P Assessment and Plan (1) End stage renal disease: Code(s): N18.6 - End stage renal disease Status: Chronic Assessment and Plan: HD currently. Removing some fluid. Tolerating the treatment well (2) Altered mental status: Code(s): R41.82 - Altered mental status, unspecified Status: Acute Assessment and Plan: clinically improving (3) UTI (urinary tract infection): Qualifiers: Encounter type: initial encounter Indwelling urinary catheter type: unspecified Urinary tract infection type: catheter-associated UTI Qualified Code(s): T83.511A - Infection and inflammatory reaction due to indwelling urethral catheter, initial encounter; N39.0 - Urinary tract infection, site not specified Code(s): N39.0 - Urinary tract infection, site not specified Status: Acute Assessment and Plan: urinalysis was suggestive however, urine culture negative (4) Bacteremia: Code(s): R78.81 - Bacteremia Status: Acute Assessment and Plan: one out of 2 bottles with coag negative staph contamination? follow repeat cultures (5) C. difficile colitis: Code(s): A04.72 - Enterocolitis due to Clostridium difficile, not specified as recurrent Status: Chronic Assessment and Plan: on isolation on Questran and oral vancomycin no diarrhea currently (6) Hypertension: Qualifiers: Hypertension type: essential hypertension Qualified Code(s): I10 - Essential (primary) hypertension Code(s): I10 - Essential (primary) hypertension Status: Acute Assessment and Plan: fluctuates in general blood pressure ranging in the 95-124 region Additional Plan Subjective Date/time seen: 01/13/20 16:48 Interval history: Patient is feeling weak. No diarrhea. Some discomfort in the wound area in her low back on dialysis and tolerating it well. Blood pressure is doing well. She was seen at 4:40 p.m. Review of Systems Cardiovascular: Cardiovascular: Reports no additional cardiovascular complaints Respiratory: Respiratory: Reports no additional respiratory complaints Gastrointestinal: Gastrointestinal: Reports no additional gastrointestinal complaints Genitourinary: Genitourinary: Reports no additional female genitourinary complaints Exam Narrative: Exam Narrative: well developed well-nourished female in no acute distress skin warm and dry without rash eyes EOMI Objective Data Vital Signs Vital Signs: Vital Signs - 24 hr 01/12/20 19:45 01/12/20 20:06 01/12/20 23:37 Temperature 36.2 C L Pulse Rate 59 L 70 Respiratory Rate 16 Blood Pressure 151/69 H Pulse Oximetry 100 94 01/13/20 05:32 01/13/20 08:00 01/13/20 09:05 Temperature 36.1 C L 35.9 C L Pulse Rate 100 52 L 60 Respiratory Rate 14 22 H Blood Pressure 154/77 H 148/80 H Pulse Oximetry 60 L 100 01/13/20 12:00 01/13/20 14:34 01/13/20 14:45 Temperature 36.1 C L Pulse Rate 59 L 60 55 L Respiratory Rate 20 Blood Pressure 153/89 H 174/86 H 168/76 H Pulse Oximetry 100 01/13/20 15:00 01/13/20 15:15 01/13/20 15:30 Temperature Pulse Rate 59 L 65 79 Respiratory Rate Blood Pressure 127/56 L 120/66 114/61 Pulse Oximetry 01/13/20 15:45 01/13/20 16:00 01/13/20 16:15 Temperature Pulse Rate 81 81 82 Respiratory Rate Blood Pressure 109/66 111/64 111/77 Pulse Oximetry 01/13/20 16:30 Temperature Pulse Rate 65 Respiratory Rate Blood Pressure 124/34 L Pulse Oximetry Intake/Output Intake/Output: Intake & Output 01/10/20 01/11/20 01/12/20 01/13/20 23:59 23:59 23:59 23:59 Intake Total 100 1710 750 Output Total 600 0 150 75 Balance -297 941 9800 675 Meds/Results Medications: Active Medications Generic Name Dose Route Start Last Admin Trade Name Cesario PRN Reason Stop Dose Admin Acetaminophen 650 mg 01/10/20 15:20 Tylenol Tablet
[2020-01-13 16:49] LABS: Hepatitis B Surface Antigen Negative (Negative)
[2020-01-13 17:06] LABS: Hepatitis B Surface Anti Res Negative
--- NOTE | 2020-01-13 18:40 | PC.NURSE ---
Patient is back on unit from dialysis. One liter was removed. Patient tolerated well. Patient is resting in room now.
[2020-01-13 18:51] LABS: Glucose Point of Care 84 (65-105)
--- NOTE | 2020-01-13 18:57 | PC.NURSE ---
Joselin Price RN have reviewed documentation completed by Moon Barbosa RN. Documentation has been completed and is accurate of patient assessment.
[2020-01-13] MEDS: SIMVASTATIN 20 MG TABLET 40 MG PO (20:15)
[2020-01-13 20:32] LABS: Glucose Point of Care 85 (65-105)
[2020-01-14] VITALS (8 sets, daily range): BP systolic 143–165; BP diastolic 69–77; PULSE 60–68; RESP 16–20; TEMP 36.2–36.6; O2SAT 92–100
[2020-01-14 00:37] LABS: Glucose Point of Care 74 (65-105)
[2020-01-14] MEDS: ALPRAZolam 0.5 MG TABLET PO ×4 (05:31→21:44)
[2020-01-14] MEDS: SALINE 0.65% NAS SOLN 44 ML BTL 1 SPRAY NASAL ×4 (05:31→23:45)
[2020-01-14 05:54] LABS: Hematocrit 40.5 % (37.0-47.0); Hemoglobin 12.4 g/dL (12.0-15.0); Immature Platelet Fraction Pct 1.8 % (0.9-11.2); Mean Corpuscular HGB Conc 30.6 g/dl (32-36); Mean Corpuscular Hemoglobin 29.7 pg (26-34); Mean Corpuscular Volume 96.9 fl (80-100); Mean Platelet Volume 10.1 fl (7.4-10.4); Platelet Count Result 147 k/mm3 (150-375); Red Blood Count 4.18 M/mm3 (4.2-5.4); Red Cell Distribution Width 14.5 % (11.5-14.5); White Blood Count 6.8 K/mm3 (4.5-10.0)
[2020-01-14 05:59] LABS: Glucose Point of Care 85 (65-105)
[2020-01-14 06:15] LABS: Albumin Level 2.6 g/dL (3.5-5.1); Blood Urea Nitrogen 14 mg/dL (7-17); Calcium 7.9 mg/dL (8.4-10.2); Carbon Dioxide 26 mmol/L (22-30); Chloride 102 mmol/L (98-107); Estimated CRCL calculation 18 ml/min; Estimated Glomerular Filt Rate 15; Glucose 80 mg/dL (65-105); Phosphorus 3.6 mg/dL (2.5-4.5); Potassium 3.7 mmol/L (3.4-5.0); Sodium 133 mmol/L (137-145)
--- NOTE | 2020-01-14 06:19 | PC.NURSE ---
bm only clear mucus
--- NOTE | 2020-01-14 07:29 | PM.PNNEP ---
Progress Note: A&P Assessment and Plan (1) End stage renal disease: Code(s): N18.6 - End stage renal disease Status: Chronic Assessment and Plan: HD Due tomorrow. Removing some fluid. Did well with yesterday's treatment. (2) Altered mental status: Code(s): R41.82 - Altered mental status, unspecified Status: Acute Assessment and Plan: Seems to be more together. (3) UTI (urinary tract infection): Qualifiers: Encounter type: initial encounter Indwelling urinary catheter type: unspecified Urinary tract infection type: catheter-associated UTI Qualified Code(s): T83.511A - Infection and inflammatory reaction due to indwelling urethral catheter, initial encounter; N39.0 - Urinary tract infection, site not specified Code(s): N39.0 - Urinary tract infection, site not specified Status: Acute Assessment and Plan: urinalysis was suggestive however, urine culture negative (4) Bacteremia: Code(s): R78.81 - Bacteremia Status: Acute Assessment and Plan: one out of 2 bottles with coag negative staph contamination? The patient does not look toxic or have a fever. Will repeat blood cultures. (5) C. difficile colitis: Code(s): A04.72 - Enterocolitis due to Clostridium difficile, not specified as recurrent Status: Chronic Assessment and Plan: on isolation on Questran , Dificid, and oral vancomycin no diarrhea currently (6) Hypertension: Qualifiers: Hypertension type: essential hypertension Qualified Code(s): I10 - Essential (primary) hypertension Code(s): I10 - Essential (primary) hypertension Status: Acute Assessment and Plan: systolic ranges 100 to 150. The patient looks euvolemic on exam. The patient is not on antihypertensives. In fact she is on midodrine. Will change of midodrine to p.r.n. dialysis. (7) Decubitus ulcer: Qualifiers: Pressure injury location: heel Pressure injury stage: pressure injury of deep tissue Laterality: unspecified laterality Qualified Code(s): L89.606 - Pressure-induced deep tissue damage of unspecified heel Code(s): L89.90 - Pressure ulcer of unspecified site, unspecified stage Status: Acute Assessment and Plan: Buttocks look much better according to nursing. Just a little pink they say. Additional Plan Subjective Date/time seen: 01/14/20 07:29 Interval history: Patient is feeling weak. Resting in bed. I am being lazy today Eating is just fair. No diarrhea. no more back pain. Finished dialysis yesterday and did well. Review of Systems Cardiovascular: Cardiovascular: Reports no additional cardiovascular complaints Respiratory: Respiratory: Reports no additional respiratory complaints Gastrointestinal: Gastrointestinal: Reports no additional gastrointestinal complaints Genitourinary: Genitourinary: Reports no additional female genitourinary complaints Exam Narrative: Exam Narrative: WDWN in NAD skin no rash head ncat lungs clear cor reg no rub abd BS+ nontender and soft ext no edema. Objective Data Vital Signs Vital Signs: Vital Signs - 24 hr 01/13/20 08:00 01/13/20 09:05 01/13/20 12:00 Temperature 35.9 C L 36.1 C L Pulse Rate 52 L 60 59 L Respiratory Rate 22 H 20 Blood Pressure 148/80 H 153/89 H Pulse Oximetry 100 100 01/13/20 14:34 01/13/20 14:45 01/13/20 15:00 Temperature Pulse Rate 60 55 L 59 L Respiratory Rate Blood Pressure 174/86 H 168/76 H 127/56 L Pulse Oximetry 01/13/20 15:15 01/13/20 15:30 01/13/20 15:45 Temperature Pulse Rate 65 79 81 Respiratory Rate Blood Pressure 120/66 114/61 109/66 Pulse Oximetry 01/13/20 16:00 01/13/20 16:15 01/13/20 16:30 Temperature Pulse Rate 81 82 65 Respiratory Rate Blood Pressure 111/64 111/77 124/34 L Pulse Oximetry 01/13/20 16:45 0
[2020-01-14] MEDS: TOLNAFTATE 1% POWDER 45 GM BTL 1 APPLIC TOPICAL ×2 (07:52→21:44)
[2020-01-14] MEDS: EUCERIN CREAM 120 GM JAR 1 APPLIC TOPICAL (07:53)
[2020-01-14] MEDS: CHOLESTYRAMINE LIGHT 4 GM POWD.PACK PO ×2 (07:58→16:26)
[2020-01-14] MEDS: FIDAXOMICIN 200 MG TABLET PO ×2 (07:59→21:44)
[2020-01-14] MEDS: METOPROLOL TARTRATE 25 MG TABLET PO ×2 (07:59→21:44)
[2020-01-14] MEDS: MEGESTROL ACETATE (*CHEMO) ORAL SUSP 40 MG/ML SYR 800 MG PO (07:59)
[2020-01-14] MEDS: POTASSIUM CHLORIDE 20 MEQ PACKET (FOR LIQUID) PO (08:00)
[2020-01-14 08:31] LABS: Glucose Point of Care 77 (65-105)
[2020-01-14] MEDS: FAMOTIDINE 20 MG TABLET PO ×2 (08:35→22:22)
[2020-01-14 11:42] LABS: Glucose Point of Care 76 (65-105)
--- NOTE | 2020-01-14 16:23 | PM.IMPN ---
Progress Note: A&P Assessment and Plan (1) Acute encephalopathy: Code(s): G93.40 - Encephalopathy, unspecified Status: Acute Assessment and Plan: 01/14/20 16:23 69 year old morbidly obese female with ESRD on dialysis who is anticoagulated on Eliquis secondary to Atrial fibrillation and currently being treated for c. diff colitis presented to the hospital from the senior care secondary to acute altered mental status. today patient states feeling better her bowel movements have improved, denies any nausea or vomiting, able to tolerate her diet, patient had hemodialysis yesterday seen by Dr. Gonzalez and will have another dialysis tomorrow remains clinically stable will discharge patient back to nursing (2) Elevated troponin: Code(s): R79.89 - Other specified abnormal findings of blood chemistry Status: Acute Assessment and Plan: Acute troponin leak is likely secondary to ESRD. Trend troponin. Monitor for chest pain. Telemetry. (3) Hypokalemia: Code(s): E87.6 - Hypokalemia Status: Acute Assessment and Plan: KCL replacement. Monitor serum potassium. (4) ESRD (end stage renal disease) on dialysis: Code(s): N18.6 - End stage renal disease; Z99.2 - Dependence on renal dialysis Status: Chronic Assessment and Plan: Nephrology has been consulted by ER provider. The patient missed dialysis yesterday and will benefit from dialysis tomorrow. (5) Atrial fibrillation: Qualifiers: Atrial fibrillation type: unspecified Qualified Code(s): I48.91 - Unspecified atrial fibrillation Code(s): I48.91 - Unspecified atrial fibrillation Status: Chronic Assessment and Plan: Currently in sinus bradycardia. Resume amiodarone and Eliquis when possible. (6) C. difficile colitis: Code(s): A04.72 - Enterocolitis due to Clostridium difficile, not specified as recurrent Status: Chronic Assessment and Plan: Continue Oral Vancomycin when possible to finish month of antibiotics. Additional Plan Need to discuss with pts family if she should be changes to hospice as she refuses PD in [place] Otherwise continue care and Dc back to [place] monday or as pt appears improved Subjective Date/time seen: 01/14/20 16:23 69 year old morbidly obese female with ESRD on dialysis who is anticoagulated on Eliquis secondary to Atrial fibrillation and currently being treated for c. diff colitis presented to the hospital from the senior care secondary to acute altered mental status. today patient states feeling better her bowel movements have improved, denies any nausea or vomiting, able to tolerate her diet, patient had hemodialysis yesterday seen by Dr. Gonzalez and will have another dialysis tomorrow remains clinically stable will discharge patient back to nursing Review of Systems Review of Systems: All systems reviewed & are unremarkable except as noted in HPI and below Exam Narrative: Exam Narrative: obese Const: General: comfortable and no acute distress HENMT: General nose exam: Normal nares present Eyes: General: appearance normal, both eyes and all related structures Sclera: sclerae normal Neck: Neck: supple Resp: Effort & Inspection: normal respiratory effort Auscultation: clear to auscultation bilaterally Cardio: Rate: regular rate Rhythm: regular rhythm GI: Auscultation: normal bowel sounds Skin: General skin exam: normal color Neuro: Speech: normal speech Other: patient still quite confused Extrem: General: normal to inspection Psych: Affect: Anxious affect present Objective Data Vital Signs Vital Signs: Vital Signs - 24 hr 01/13/20 16:30 01/13/20 16:45 01/13/20 17:00 Temperature Pulse Rate 65 85 86 Respiratory Rate Blood Pressure 124/34 L 95/52 L 120/51 L Pulse Oximetry 01/13/20 17:15 01/13/20 17:30 01/13/20 17:48 Temperature Pulse Rate 85 72 87 Respiratory Rate
[2020-01-14 16:49] LABS: Glucose Point of Care 86 (65-105)
[2020-01-14] MEDS: SIMVASTATIN 20 MG TABLET 40 MG PO (21:44)
[2020-01-14 21:56] LABS: Glucose Point of Care 76 (65-105)
[2020-01-15 01:42] LABS: Glucose Point of Care 86 (65-105)
[2020-01-15 04:37] LABS: Glucose Point of Care 69 (65-105)
[2020-01-15 05:40] LABS: Hemoglobin 11.8 g/dL (12.0-15.0); Mean Corpuscular HGB Conc 31.1 g/dl (32-36); Mean Corpuscular Hemoglobin 30.4 pg (26-34); Mean Corpuscular Volume 97.9 fl (80-100); Mean Platelet Volume 11.1 fl (7.4-10.4); Platelet Count Result 143 k/mm3 (150-375); Red Blood Count 3.88 M/mm3 (4.2-5.4); Red Cell Distribution Width 14.6 % (11.5-14.5); White Blood Count 6.6 K/mm3 (4.5-10.0)
[2020-01-15 06:40] LABS: Albumin Level 2.3 g/dL (3.5-5.1); Blood Urea Nitrogen 19 mg/dL (7-17); Calcium 7.7 mg/dL (8.4-10.2); Carbon Dioxide 24 mmol/L (22-30); Chloride 103 mmol/L (98-107); Estimated CRCL calculation 14 ml/min; Estimated Glomerular Filt Rate 12; Glucose 77 mg/dL (65-105); Phosphorus 4.3 mg/dL (2.5-4.5); Potassium 4.3 mmol/L (3.4-5.0); Sodium 132 mmol/L (137-145)
--- NOTE | 2020-01-15 07:38 | PM.PNNEP ---
Progress Note: A&P Assessment and Plan (1) End stage renal disease: Code(s): N18.6 - End stage renal disease Status: Chronic Assessment and Plan: HD Due today later. Remove A little fluid. Electrolytes okay. (2) Altered mental status: Code(s): R41.82 - Altered mental status, unspecified Status: Acute Assessment and Plan: Improved (3) UTI (urinary tract infection): Qualifiers: Encounter type: initial encounter Indwelling urinary catheter type: unspecified Urinary tract infection type: catheter-associated UTI Qualified Code(s): T83.511A - Infection and inflammatory reaction due to indwelling urethral catheter, initial encounter; N39.0 - Urinary tract infection, site not specified Code(s): N39.0 - Urinary tract infection, site not specified Status: Acute Assessment and Plan: urine culture negative. (4) Bacteremia: Code(s): R78.81 - Bacteremia Status: Acute Assessment and Plan: one out of 2 bottles with coag negative staph contamination? The patient does not look toxic or have a fever. Will repeat blood cultures. (5) C. difficile colitis: Code(s): A04.72 - Enterocolitis due to Clostridium difficile, not specified as recurrent Status: Chronic Assessment and Plan: on isolation on Questran , Dificid, and oral vancomycin no diarrhea currently (6) Hypertension: Qualifiers: Hypertension type: essential hypertension Qualified Code(s): I10 - Essential (primary) hypertension Code(s): I10 - Essential (primary) hypertension Status: Acute Assessment and Plan: systolic ranges 100 to 150. The patient looks euvolemic on exam. The patient is not on antihypertensives. BP is bit generous. stop the Midodrine will see how blood pressure looks after dialysis (7) Decubitus ulcer: Qualifiers: Laterality: unspecified laterality Pressure injury location: heel Pressure injury stage: pressure injury of deep tissue Qualified Code(s): L89.606 - Pressure-induced deep tissue damage of unspecified heel Code(s): L89.90 - Pressure ulcer of unspecified site, unspecified stage Status: Acute Assessment and Plan: Buttocks look much better according to nursing. Just a little pink they say. Additional Plan Subjective Date/time seen: 01/15/20 07:38 Interval history: Patient is about the same. no diarrhea,' eating better. HD due today Review of Systems Cardiovascular: Cardiovascular: Reports no additional cardiovascular complaints Respiratory: Respiratory: Reports no additional respiratory complaints Gastrointestinal: Gastrointestinal: Reports no additional gastrointestinal complaints Genitourinary: Genitourinary: Reports no additional female genitourinary complaints Exam Narrative: Exam Narrative: WDWN in NAD skin no rashOr subcu nodule head ncat lungs clear cor reg no rub or gallop abd BS+ nontender and soft ext no edema. Objective Data Vital Signs Vital Signs: Vital Signs - 24 hr 01/14/20 07:59 01/14/20 08:00 01/14/20 08:40 Temperature Pulse Rate 67 67 Respiratory Rate 20 Blood Pressure Pulse Oximetry 100 98 01/14/20 10:50 01/14/20 14:00 01/14/20 21:44 Temperature 36.6 C Pulse Rate 65 60 Respiratory Rate 16 Blood Pressure 143/69 H Pulse Oximetry 92 97 01/14/20 22:31 Temperature 36.2 C L Pulse Rate 68 Respiratory Rate 16 Blood Pressure 165/75 H Pulse Oximetry 96 Intake/Output Intake/Output: Intake & Output 01/12/20 01/13/20 01/14/20 01/15/20 23:59 23:59 23:59 23:59 Intake Total 1710 1050 1095 120 Output Total 150 2485 75 50 Balance 1560 -1435 1020 70 Meds/Results Medications: Active Medications Generic Name Dose Route Start Last Admin Trade Name Freq PRN Reason Stop Dose Admin Acetaminophen 650 mg 01/10/20 15:20 Tylenol T
[2020-01-15 08:56] VITALS: TEMP 36.8
[2020-01-15] MEDS: TOLNAFTATE 1% POWDER 45 GM BTL 1 APPLIC TOPICAL ×2 (08:57→20:24)
[2020-01-15] MEDS: MEGESTROL ACETATE (*CHEMO) ORAL SUSP 40 MG/ML SYR 800 MG PO (08:57)
[2020-01-15] MEDS: POTASSIUM CHLORIDE 20 MEQ PACKET (FOR LIQUID) PO (08:58)
[2020-01-15] MEDS: FIDAXOMICIN 200 MG TABLET PO ×2 (08:58→20:23)
[2020-01-15 08:59] VITALS: PULSE 68
[2020-01-15] MEDS: METOPROLOL TARTRATE 25 MG TABLET PO ×2 (08:59→20:23)
[2020-01-15] MEDS: EUCERIN CREAM 120 GM JAR 1 APPLIC TOPICAL (09:01)
[2020-01-15 09:02] VITALS: RESP 16; O2SAT 96
[2020-01-15] MEDS: FAMOTIDINE 20 MG TABLET PO ×2 (09:02→20:24)
[2020-01-15 09:33] LABS: Glucose Point of Care 117 (65-105)
[2020-01-15] MEDS: CHOLESTYRAMINE LIGHT 4 GM POWD.PACK PO ×2 (10:03→17:25)
[2020-01-15] MEDS: ALPRAZolam 0.5 MG TABLET PO ×3 (11:14→20:24)
[2020-01-15] MEDS: SALINE 0.65% NAS SOLN 44 ML BTL 1 SPRAY NASAL ×2 (11:15→17:25)
[2020-01-15 11:49] LABS: Glucose Point of Care 108 (65-105)
--- NOTE | 2020-01-15 14:39 | PM.DS ---
DS: Admitting Diagnosis Admitting Diagnosis Admitting Diagnosis: Hypertensive heart and chronic kidney disease with heart failure and with stage 5 chronic kidney disease, or end stage renal disease DS: Discharge Diagnosis Discharge Diagnosis (1) Acute encephalopathy: Code(s): G93.40 - Encephalopathy, unspecified Status: Acute Assessment and Plan: 01/14/20 16:23 69 year old morbidly obese female with ESRD on dialysis who is anticoagulated on Eliquis secondary to Atrial fibrillation and currently being treated for c. diff colitis presented [facility] secondary to acute altered mental status. today patient states feeling better her bowel movements have improved, denies any nausea or vomiting, able to tolerate her diet, patient had hemodialysis yesterday seen by Dr. Gonzalez and will have another dialysis tomorrow remains clinically stable will discharge patient back to nursing (2) Elevated troponin: Code(s): R79.89 - Other specified abnormal findings of blood chemistry Status: Acute Assessment and Plan: Acute troponin leak is likely secondary to ESRD. Trend troponin. Monitor for chest pain. Telemetry. (3) Hypokalemia: Code(s): E87.6 - Hypokalemia Status: Acute Assessment and Plan: KCL replacement. Monitor serum potassium. (4) ESRD (end stage renal disease) on dialysis: Code(s): N18.6 - End stage renal disease; Z99.2 - Dependence on renal dialysis Status: Chronic Assessment and Plan: Nephrology has been consulted by ER provider. The patient missed dialysis yesterday and will benefit from dialysis tomorrow. (5) Atrial fibrillation: Qualifiers: Atrial fibrillation type: unspecified Qualified Code(s): I48.91 - Unspecified atrial fibrillation Code(s): I48.91 - Unspecified atrial fibrillation Status: Chronic Assessment and Plan: Currently in sinus bradycardia. Resume amiodarone and Eliquis when possible. (6) C. difficile colitis: Code(s): A04.72 - Enterocolitis due to Clostridium difficile, not specified as recurrent Status: Chronic Assessment and Plan: Continue Oral Vancomycin when possible to finish month of antibiotics. DS: Summary Hospital Course Reason for hospitalization: Narrative: This is a 69 year old morbidly obese female with ESRD on dialysis who is anticoagulated on Eliquis secondary to Atrial fibrillation and currently being treated for c. diff colitis presented [facility] secondary to acute altered mental status today. The patient did not go to dialysis yesterday and her son who is at the bedside states that he got a call today from the [facility] telling him they were sending her to the hospital for evaluation due to decreased level of alertness since this morning. On my arrival to bedside the patient has shallow, slow breathing and is comatose. She does not respond to painful stimuli. CT brain was obtained and was unremarkable. Routine labs were obtained in the ER demonstrated a mildly elevated troponin. The son denies any other symptoms although he tells me that he hasn't been able to visit his mother in the [facility] because it has been locked down due to COVID. ABG is currently pending. Hospital Course: 69 year old morbidly obese female with ESRD on dialysis who is anticoagulated on Eliquis secondary to Atrial fibrillation and currently being treated for c. diff colitis presented [facility] the [facility] secondary to acute altered mental status. today patient states feeling better her bowel movements have improved, denies any nausea or vomiting, able to tolerate her diet, patient had hemodialysis yesterday seen by Dr. Gonzalez and will have another dialysis tomorrow remains clinically stable will discharge patient back to nursing, patient is clinically stable and seen by Dr. Gonzalez, will discharge mack
[2020-01-15 16:32] VITALS: BP 128/70; PULSE 68; RESP 16; TEMP 37.1; O2SAT 97
[2020-01-15 17:34] LABS: Glucose Point of Care 107 (65-105)
[2020-01-15 20:23] VITALS: PULSE 70
[2020-01-15] MEDS: SIMVASTATIN 20 MG TABLET 40 MG PO (20:24)
[2020-01-15 22:25] VITALS: BP 142/70; PULSE 96; RESP 14; TEMP 36.6; O2SAT 97
[2020-01-16] MEDS: SALINE 0.65% NAS SOLN 44 ML BTL 1 SPRAY NASAL ×3 (00:41→13:12)
[2020-01-16 01:39] LABS: Glucose Point of Care 88 (65-105)
[2020-01-16 05:04] VITALS: BP 110/63; PULSE 72; RESP 16; TEMP 36.9; O2SAT 97
[2020-01-16] MEDS: ALPRAZolam 0.5 MG TABLET PO ×2 (05:16→13:11)
[2020-01-16 05:23] LABS: Glucose Point of Care 88 (65-105)
[2020-01-16 06:08] LABS: Hematocrit 38.7 % (37.0-47.0); Mean Corpuscular Hemoglobin 29.7 pg (26-34); Mean Corpuscular Volume 95.8 fl (80-100); Mean Platelet Volume 10.6 fl (7.4-10.4); Platelet Count Result 110 k/mm3 (150-375); Red Blood Count 4.04 M/mm3 (4.2-5.4); Red Cell Distribution Width 14.2 % (11.5-14.5); White Blood Count 7.3 K/mm3 (4.5-10.0)
[2020-01-16 06:22] LABS: Albumin Level 2.5 g/dL (3.5-5.1); Anion Gap 12.2 mmol/L (7-16); Blood Urea Nitrogen 23 mg/dL (7-17); Calcium 7.9 mg/dL (8.4-10.2); Carbon Dioxide 22 mmol/L (22-30); Chloride 102 mmol/L (98-107); Estimated CRCL calculation 11 ml/min; Estimated Glomerular Filt Rate 9; Glucose 83 mg/dL (65-105); Phosphorus 4.4 mg/dL (2.5-4.5); Potassium 4.2 mmol/L (3.4-5.0); Sodium 132 mmol/L (137-145)
[2020-01-16] MEDS: CHOLESTYRAMINE LIGHT 4 GM POWD.PACK PO (08:07)
--- NOTE | 2020-01-16 09:21 | PM.PNNEP ---
Progress Note: A&P Assessment and Plan (1) End stage renal disease: Code(s): N18.6 - End stage renal disease Status: Chronic Assessment and Plan: hemodialysis to be done today Remove A little fluid. Electrolytes okay. (2) Altered mental status: Code(s): R41.82 - Altered mental status, unspecified Status: Acute Assessment and Plan: Improved (3) UTI (urinary tract infection): Qualifiers: Encounter type: initial encounter Indwelling urinary catheter type: unspecified Urinary tract infection type: catheter-associated UTI Qualified Code(s): T83.511A - Infection and inflammatory reaction due to indwelling urethral catheter, initial encounter; N39.0 - Urinary tract infection, site not specified Code(s): N39.0 - Urinary tract infection, site not specified Status: Acute Assessment and Plan: urine culture negative. (4) Bacteremia: Code(s): R78.81 - Bacteremia Status: Acute Assessment and Plan: one out of 2 bottles with coag negative staph contamination? The patient does not look toxic or have a fever. blood cultures pending (5) C. difficile colitis: Code(s): A04.72 - Enterocolitis due to Clostridium difficile, not specified as recurrent Status: Chronic Assessment and Plan: on isolation still on Questran , Dificid, and oral vancomycin no diarrhea currently (6) Hypertension: Qualifiers: Hypertension type: essential hypertension Qualified Code(s): I10 - Essential (primary) hypertension Code(s): I10 - Essential (primary) hypertension Status: Acute Assessment and Plan: systolic ranges 100 to 150. The patient looks euvolemic on exam. The patient is not on antihypertensives. also off midodrine. (7) Decubitus ulcer: Qualifiers: Laterality: unspecified laterality Pressure injury location: heel Pressure injury stage: pressure injury of deep tissue Qualified Code(s): L89.606 - Pressure-induced deep tissue damage of unspecified heel Code(s): L89.90 - Pressure ulcer of unspecified site, unspecified stage Status: Acute Assessment and Plan: Buttocks look much better according to nursing. Just a little pink they say. Additional Plan Subjective Date/time seen: 01/16/20 09:21 Interval history: Patient is about the same. no diarrhea, eating better. Hemodialysis not done yesterday because of emergencies. They would not have gotten to her till after midnight last night. Labs are okay so I asked him just to do her this morning. Review of Systems Cardiovascular: Cardiovascular: Reports no additional cardiovascular complaints Respiratory: Respiratory: Reports no additional respiratory complaints Gastrointestinal: Gastrointestinal: Reports no additional gastrointestinal complaints Genitourinary: Genitourinary: Reports no additional female genitourinary complaints Exam Narrative: Exam Narrative: WDWN in NAD skin no rashOr subcu nodule head ncat lungs clear Bilaterally cor reg no rub or gallop abd BS+ nontender and soft ext no edema. or cyanosis Objective Data Vital Signs Vital Signs: Vital Signs - 24 hr 01/15/20 16:32 01/15/20 20:23 01/15/20 22:25 Temperature 37.1 C 36.6 C Pulse Rate 68 70 96 Respiratory Rate 16 14 Blood Pressure 128/70 142/70 H Pulse Oximetry 97 97 01/16/20 05:04 Temperature 36.9 C Pulse Rate 72 Respiratory Rate 16 Blood Pressure 110/63 Pulse Oximetry 97 Intake/Output Intake/Output: Intake & Output 01/13/20 01/14/20 01/15/20 01/16/20 23:59 23:59 23:59 23:59 Intake Total 1050 1095 460 40 Output Total 2485 75 50 50 Balance -1435 1020 410 -10 Meds/Results Medications: Active Medications Generic Name Dose Route Start Last Admin Trade Name Freq PRN Reason Stop Dose Admin Acetaminophen 650 mg 01/10/20 15:20 Tylenol Tablet PO Q4H
[2020-01-16 10:55] LABS: SARS-CoV-2 RNA PCR Negative
[2020-01-16] MEDS: FAMOTIDINE 20 MG TABLET PO (13:11)
[2020-01-16] MEDS: FIDAXOMICIN 200 MG TABLET PO (13:11)
[2020-01-16] MEDS: POTASSIUM CHLORIDE 20 MEQ PACKET (FOR LIQUID) PO (13:11)
[2020-01-16] MEDS: MEGESTROL ACETATE (*CHEMO) ORAL SUSP 40 MG/ML SYR 800 MG PO (13:11)
[2020-01-16] MEDS: EUCERIN CREAM 120 GM JAR 1 APPLIC TOPICAL (13:14)
[2020-01-16 13:18] LABS: Glucose Point of Care 79 (65-105)
--- NOTE | 2020-01-16 13:24 | PM.EVENT ---
Event Note Event Note Event Note: on hd ella it well. bp is good going for some fluid removal seen at 12:15pm
[2020-01-16] MEDS: TOLNAFTATE 1% POWDER 45 GM BTL 1 APPLIC TOPICAL (13:28)
[2020-01-16 14:04] VITALS: BP 105/70; PULSE 72; RESP 16; TEMP 36.9; O2SAT 100
[2020-01-16 15:00] VITALS: TEMP 36
--- NOTE | 2020-01-16 15:19 | PCDIET ---
Nutrition Follow-Up Complete: Inadequate oral intake related to altered mental status as evidenced by NPO order. Patient to meet estimated nutritional needs. Goal: Progressing towards goal. Continue goal. Pt current nutrition is clears. Nutrition recommendation: Recommend ADAT to 2gmNa Last recorded weight is 87.6 kg (up from assessed wt of 86.6kg) Bowel Motility: Improved (soft, large BM) Labs Reviewed:Albumin 2.5, Na 132, GFR 9 Meds Noted:Vanc, KCL, Xanax, Megace Additional Notes: Pt with PO intake of 29%. Recommend ADAT to improve intake. Pt offered Banatrol TID to help bulk stools and improve microbiome. Ensure clear also provided on all trays for additional protein and kcals. Pt d/c today. Recommend continued intake of Banatrol or probiotic daily due to antibiotic use and hx of cdiff.
== END 2020-01-16 15:20 | DRG 70 ==
LOC: ANHED 21:40 → ANHIMU 22:00 → ANH3MED 01-15 14:39 → ANHIMU 01-20 14:50
PROVIDERS: Family Medicine; Internal Medicine Nephrology; Admitting Provider Family Medicine; Emergency Provider Emergency Medicine; PCP Family Medicine; Visit Provider Family Medicine
DX: G93.40 Encephalopathy, unspecified (principal); N18.6 End stage renal disease; J96.22 Acute and chronic respiratory failure with hypercapnia; J96.21 Acute and chronic respiratory failure with hypoxia; I13.2 Hypertensive heart and chronic kidney disease with heart failure and with stage 5 chronic kidney disease, or end stage renal disease; T83.511A Infection and inflammatory reaction due to indwelling urethral catheter, initial encounter; N39.0 Urinary tract infection, site not specified; I69.354 Hemiplegia and hemiparesis following cerebral infarction affecting left non-dominant side; I50.32 Chronic diastolic (congestive) heart failure; R78.81 Bacteremia; A04.72 Enterocolitis due to Clostridium difficile, not specified as recurrent; I48.91 Unspecified atrial fibrillation; Z99.81 Dependence on supplemental oxygen; F41.9 Anxiety disorder, unspecified; E78.5 Hyperlipidemia, unspecified; E11.22 Type 2 diabetes mellitus with diabetic chronic kidney disease; Z11.59 Encounter for screening for other viral diseases; E11.42 Type 2 diabetes mellitus with diabetic polyneuropathy; Z86.718 Personal history of other venous thrombosis and embolism; Z87.891 Personal history of nicotine dependence; E87.6 Hypokalemia; Z99.2 Dependence on renal dialysis; K74.60 Unspecified cirrhosis of liver; Z79.4 Long term (current) use of insulin; D50.9 Iron deficiency anemia, unspecified; M79.3 Panniculitis, unspecified; Z68.31 Body mass index [BMI] 31.0-31.9, adult; L89.626 Pressure-induced deep tissue damage of left heel; L89.309 Pressure ulcer of unspecified buttock, unspecified stage; E66.01 Morbid (severe) obesity due to excess calories; Z91.15 Patient's noncompliance with renal dialysis
CPT/HCPCS: 36415; 36600; 70450; 71045; 80048; 80053; 80069; 80307; 81001; 82140; 82375; 82607; 82746; 82805; 83050; 83605; 83735; 84100; 84443; 84484; 85025; 85027; 85055; 86706; 87040; 87077; 87086; 87088; 87186; 87340; 87635; 93005; 99285; A9270; C9803; G0257; J1644; J7030; U0003